=== PATIENT | male | born 1970 | race African-American/Black ===

== ENCOUNTER 2017-06-14 12:19 | Inpatient (IN) | payer OTHER, SELFPAY ==
[2017-06-14] MEDS ORDERED: Lorazepam 2 MG/ML VIAL ONE (12:22)
[2017-06-14] MEDS ORDERED: Succinylcholine Chloride 20 MG/ML 10 ml SYRINGE FS ONE (12:26)
[2017-06-14] MEDS ORDERED: Propofol 1,000 MG/100 ML VIAL IV ONE (12:29)
[2017-06-14 12:41] LABS: #Basophils 0.1 thou/uL (0.0-0.2); #Eosinphils 0.2 thou/uL (0.0-0.7); #Lymphocytes 2.9 thou/uL (1.20-3.40); #Monocytes 0.8 thou/uL (0.11-0.59); %Eosinophils 2.3 % (0.0-10.0); %Lymphocytes 28.9 % (21.0-51.0); %Monocytes 7.5 % (0.0-10.0); %Neutrophils 60.2 % (42.0-75.0); Hemoglobin 15.3 g/dL (14.0-18.0); Mean Corpuscular HGB CONC 33.4 g/dL (32.0-36.0); Mean Corpuscular Hemoglobin 32.7 pg (27.0-31.0); Mean Corpuscular Volume 98.1 fl (80.0-94.0); Mean Platelet Volume 9.1 fL (7.4-10.4); Platelet Count 183 thou/uL (130-400); RBC Distribution Width 13.6 % (11.5-14.5); Red Blood Cell (RBC) Count 4.66 mill/uL (4.70-6.10)
[2017-06-14 12:46] LABS: Bicarbonate (HCO3v) 16.6 mmol/L (1.0-85.0); CO2 Tension (PvCO2) 25.7 mmHg (41.0-51.0); Calcium, Ionized 0.92 mmol/L (1.12-1.32); Lactate 4.85 mmol/L (0.50-2.20); O2 Tension (PvO2) 46.5 mmHg (35.0-45.0); T. Carbon Dioxide 17.4 mmol/L (1.0-85.0); pH (Venous) 7.418 (7.35-7.45)
[2017-06-14 12:52] LABS: Bilirubin Negative (Negative); Blood, Urine Small (Negative); Clarity CLOUDY (Clear); Glucose, Urine (Dipstick) 100 mg/dL (Negative); Leukocyte Negative (Negative); Nitrite Negative (Negative); Protein, Urine (Dipstick) 300 mg/dL (Neg-Trace); Urobilinogen 0.2 mg/dL (0.2-1.0); pH, Urine 7.5 (5.0-9.0)
[2017-06-14 12:53] LABS: Bacteria/HPF Rare-Few HPF (None Seen); Pathc Cast-AUWi Flag 0.72 (0-2.49)
[2017-06-14 12:56] LABS: INR-International Normal Ratio 1.2; PTT 107.2 SEC (22.9-36.1); Prothrombin Time 15.4 SEC (12.0-14.7)
[2017-06-14 12:59] LABS: ALT (SGPT) 11 U/L (8-55); AST (SGOT) 12 U/L (5-34); Albumin 3.1 g/dL (3.5-5.0); Alkaline Phosphatase 110 U/L (40-150); Anion Gap 13 mmol/L (10-20); BUN (Urea Nitrogen) 9 mg/dL (8.9-20.6); Bilirubin, Total 0.3 mg/dL (0.2-1.2); CK (CPK) 128 U/L (30-200); Calc. Creatinine Clearance 0 mL/min (70-130); Calcium 8.2 mg/dL (7.8-10.44); Carbon Dioxide 18 mmol/L (22-29); Chloride 109 mmol/L (98-107); Estimated GFR-MDRD 81; Globulin 2.6 g/dL (2.4-3.5); Glucose 183 mg/dL (70-105); Protein, Total 5.7 g/dL (6.0-8.3); Sodium 137 mmol/L (136-145)
[2017-06-14 13:01] LABS: Yeast-AUWi Flag 34.3 (0-25.0)
--- NOTE | 2017-06-14 13:02 | CON ---
DATE OF CONSULTATION: 06/14/2017 CHIEF COMPLAINT: Chest pain and severe headache. History obtained from his . HISTORY OF PRESENT ILLNESS: Mr. Hassan is an unfortunate 47-year-old gentleman who, per his 's history, has been having severe headaches over the last 3 days. They have been unremitting. She gutierrez s tried to get him to go to the emergency room and he has refused. She then states he had trauma not ed from the ice box x2 on his head yesterday. He then started complaining of chest pain yesterday, w hich was intermittent. He took aspirin and went to bed. He woke with more chest pain. She then sta zhou he collapsed. EMS was then summoned. Patient did have a GCS of 3 at that time. EKG did reveal ST-segment elevation. He continues to be unresponsive and combative. He was seen about in the emerg ency room where he was electively intubated. CT scan of the head is pending. PAST MEDICAL HISTORY: Malignant hypertension. SOCIAL HISTORY: No alcohol use. Positive tobacco use. ALLERGIES: IBUPROFEN. HOME MEDICATIONS: None. REVIEW OF SYSTEMS: Ten-point review of systems is unobtainable. PHYSICAL EXAMINATION: GENERAL: Intubated. VITAL SIGNS: Blood pressure 201/135, pulse 58, respirations 20. NEUROLOGIC: The patient is alert and oriented times 3 with no focal neurologic deficits. HEENT: Sclerae without icterus. Mouth has moist mucous membranes with normal pallor. NECK: No JVD. Carotid upstroke brisk. No bruits bilaterally. LUNGS: Clear to auscultation with unlabored respirations. BACK: No scoliosis or kyphosis. CARDIAC: Regular rate and rhythm with normal S1 and S2. No S3 or S4 noted. No significant rubs, mu rmurs, thrills, or gallops noted throughout the precordium. PMI is not displaced. There is no daryn ternal heave. ABDOMEN: Soft, nontender, nondistended. No peritoneal signs present. No hepatosplenomegaly. No ab normal striae. EXTREMITIES: 2+ femoral and 2+ dorsalis pedis pulses. No cyanosis, clubbing, or edema. SKIN: No gross abnormalities. PERTINENT LABS: Currently pending. EKG: Normal sinus rhythm. ST-segment elevation noted inferiorly. IMPRESSION: 1. Acute myocardial infarction. 2. Severe headache. 3. Mental status changes. RECOMMENDATIONS: I am certainly concerned about a potential intracranial bleed given his history of trauma in addition to a severe headache over the last 3 days. This could certainly explain his menta l status changes in addition to EKG changes. He has been intubated urgently by Dr. Mckeon. CT scan of the head will be performed to assess for a bleed. If this is negative, we would then proceed wit h coronary angiography and possible PCI. I discussed the procedure in full detail with Ms. Hassan. The risks included but are not limited to the following: , stroke, HI, need for emergency stacey tru, loss of limb, bleeding, and infection, as well as a reaction to the dye causing kidney failure and needing long-term dialysis. I also discussed the risks of PCI to include all of the above includ ing coronary dissection and perforation in addition to acute stent thrombosis and restenosis. All qu estions were answered. Given the above, patient agreed to proceed with the above procedure. Further recommendations pending the above.
[2017-06-14 13:03] LABS: CKMB 2.1 ng/mL (0-6.6); Troponin I 0.194 ng/mL (< 0.028)
[2017-06-14 13:05] LABS: Amphetamine Not Detected (NotDetected); Barbiturates Screen Not Detected (NotDetected); Benzodiazepine Screen Not Detected (NotDetected); Cocaine Metabolite Screen Not Detected (NotDetected); Medtox Control Line Valid? VALID (VALID); Medtox Reader # READER 1; Methadone Not Detected (NotDetected); Methamphetamine Not Detected (NotDetected); Opiate Screen Not Detected (NotDetected); Oxycodone Screen Not Detected (NotDetected); Phencyclidine (PCP) Not Detected (NotDetected); THC/Cannabinoid Screen Detected (NotDetected); Tricyclic Screen Not Detected (NotDetected)
[2017-06-14 13:07] LABS: Potassium 2.9 mmol/L (3.5-5.1)
[2017-06-14] MEDS ORDERED: Fentanyl 100 MCG/2 ML VIAL ONE (13:17)
[2017-06-14 13:20] LABS: Hyaline Casts/LPF 0-3 HYALINE CAST LPF (0-3 Hyaline); Other Casts/LPF 0-3 FINELY GRAN LPF (0-3 Hyaline); Yeast-All Forms None Seen HPF (None Seen)
[2017-06-14 13:21] LABS: Crystals/HPF 1+ AMORPH PHOS HPF (Negative)
[2017-06-14] MEDS ORDERED: Morphine 4 MG/ML VIAL SLOW IVP PRN (13:48)
[2017-06-14] MEDS ORDERED: diphenhydrAMINE 50 MG/ML VIAL IVP PRN (13:48)
[2017-06-14] MEDS ORDERED: Promethazine HCl 25 MG/ML VIAL IM PRN (13:48)
[2017-06-14 13:53] LABS: Actual Bicarbonate (HCO3a) 21.3 mEq/L (22-26); Base Excess (BEa) -5.3 mEq/L (0 (+/-) 2.5); CO2 Tension 45.1 mmHg (35.0-45.0); O2 Tension (PaO2) 33.5 mmHg (80.0-100.0); pH, Arterial 7.29 (7.35-7.45)
[2017-06-14 13:54] LABS: Hemoglobin (Hb) 15.2 g/dL (14.0-18.0)
[2017-06-14 13:55] LABS: ALV-art Gradient 623.125 (0-20); Analyzer IN Cardio ER; Calcium, Ionized 1.2 mmol/L (1.12-1.30); Puncture Site LRA
[2017-06-14] MEDS ORDERED: Acetaminophen 1,000 MG in Premix Bag 1 BAG IVPB PRN (13:55)
[2017-06-14] MEDS ORDERED: Furosemide 40 MG/4 ML VIAL ONE (14:10)
[2017-06-14] MEDS ORDERED: SODIUM CHLORIDE IV SCH (14:15)
[2017-06-14] MEDS ORDERED: POTASSIUM ACETATE IV SCH (14:15)
[2017-06-14] MEDS ORDERED: ADMIXTURE FEE IV SCH (14:15)
[2017-06-14] MEDS ORDERED: Protamine Sulfate 50 MG/5 ML VIAL SLOW IVP SCH (14:15)
[2017-06-14] MEDS ORDERED: Aminocaproic Acid 5 GM in Sodium Chloride 0.9% 250 ML 250 ML IV SCH (14:15)
[2017-06-14] MEDS ORDERED: Propofol 1,000 MG/100 ML VIAL IV SCH (14:30)
[2017-06-14] MEDS ORDERED: Succinylcholine Chloride 20 MG/ML 10 ml SYRINGE FS SCH (14:30)
[2017-06-14] MEDS ORDERED: Lorazepam 2 MG/ML VIAL SLOW IVP SCH (14:30)
[2017-06-14] MEDS ORDERED: Fentanyl 100 MCG/2 ML VIAL SLOW IVP SCH (14:30)
--- NOTE | 2017-06-14 14:46 | HP ---
ATTENDING PHYSICIAN: Dr. Teo Galindo HISTORY OF PRESENT ILLNESS: The patient is a 47-year-old male with past medical history of hypertension, noncompliant on his medications, who presented to the ER per EMS after a syncopal episode approximately 45 minutes prior to arrival. Family is at the bedside and history obtained primarily from EMS reports as well as family. Family reports the patient began complaining of headache approximately 3 days ago. Forty-five minutes prior to arrival they report he suffered a syncopal episode which was unwitnessed in the bathroom. EMS was contacted and arrived shortly thereafter at the scene. Initially there was concern for ST elevation [place] with inferior elevations of lead II, III and aVF therefore STEMI protocol was initiated and patient received heparin bolus. GCS was 3 en route per EMS. On arrival, CT head was done, which is notable for diffuse subarachnoid hemorrhage and Neurosurgery Service was consulted for further evaluation. I am seeing the patient at the bedside. He is currently intubated and sedated. His pupils are small, equal, nonreactive. He does not have a gag reflex. He is overbreathing the ventilator. He has no response to stimulation at this time. CTA of the head is pending. PAST MEDICAL HISTORY: Hypertension, noncompliant on medications. PAST SURGICAL HISTORY: Unobtainable. ALLERGIES: Patient allergic to IBUPROFEN. REVIEW OF SYSTEMS: Per HPI. SOCIAL HISTORY: The patient lives at home, he does not smoke, drink or use any drugs. PHYSICAL EXAMINATION: VITAL SIGNS: Heart rate is 42, BP 162/111. The patient is currently intubated and saturating at 90%. CONSTITUTIONAL: Intubated, sedated, distressed. HEENT: Head normocephalic, atraumatic. Eyes; pupils are small, equal, nonreactive. ENT; oral mucosa is pink intact. He is currently intubated. He does not have a gag reflex. RESPIRATORY: He has a symmetric chest expansion. He is being mechanically ventilated, but is noted to be overbreathing the ventilator. MUSCULOSKELETAL: There are no obvious deformities of the extremities. He has no response to the extremities at this time with stimulation. NEURO: Exam is limited by the patient's current condition as well as sedation. He is not opening his eyes. He is not responding to voice. He has no response to stimulation. He is noted to be overbreathing the ventilator. ASSESSMENT AND PLAN: The patient appears to have acute subarachnoid hemorrhage , high grade Taylor and Dietz. He will be admitted to the ICU for supportive care , close monitoring, frequent neuro checks. We have started Cardene for blood pressure control with systolic blood pressure goal of less than 140. I have also started the patient on Nimodipine and Amicar. The patient's heparin is being reversed in the emergency department with protamine infusion. The Medical Service as well as Critical Care has also been consulted for assistance in medical management. CTA is pending and I will follow up. I have discussed this plan with Dr. Galindo who is in agreement. Please reach out to Neurosurgery Service for additional questions or concerns. PETER
[2017-06-14] MEDS ORDERED: ISOVUE-370 76%-LOCM 1 ML ONE (14:58)
[2017-06-14] MEDS: AMINOCAPROIC ACID IV SCH (15:09)
[2017-06-14] MEDS: SODIUM CHLORIDE 0.9% IV SCH (15:09)
[2017-06-14] MEDS: Sodium Chloride 0.9% 1,000 ML IV SCH (15:10)
--- NOTE | 2017-06-14 15:30 | RAD ---
CHEST 1 VIEW: HISTORY: Chest pain. COMPARISON: 02/02/15. FINDINGS: Cardiac silhouette is magnified by projection. Pulmonary vasculature is engorged with widespread ret iculonodular interstitial prominence and air bronchogram containing bilateral upper lobe infiltrates. Mediastinum is midline. Defibrillator patch over the right upper chest. The tip of the endotrache al catheter overlies the thoracic inlet. Nasogastric tube descends to the abdomen with proximal port at the level of the GE junction. IMPRESSION: 1. Pulmonary vascular congestion with developing pulmonary edema. Continued radiographic followup i s suggested. 2. Endotracheal catheter is in good radiographic position. 3. Nasogastric tube should probably be advanced approximately 10 cm for better positioning. POS: [facility]
--- NOTE | 2017-06-14 15:37 | CT ---
CT HEAD NONCONTRAST: 06/14/17 HISTORY: Headache. Syncope. FINDINGS: Large amount of hyperdense fluid is scattered diffusely throughout the effaced sulci. It extends into the Sylvian fissures and basilar cisterns. Hyperdense fluid also extends into the nondilated bodies of the lateral ventricles. Septum pellucidum remains midline. Visualized paranasal sinuses remain wel l aerated. IMPRESSION: Large amount of subarachnoid hemorrhage with intraventricular extension. Diffuse cerebral edema. Source of hemorrhage is not reliably demonstrated. Aneurysm rupture is favored. Findings were called to Dr. Mckeon of the Emergency Department at 1256 hours. Code CR POS: [facility]
[2017-06-14] MEDS ORDERED: Rocuronium Bromide 50 MG/5 ML VIAL IVP PRN (15:49)
[2017-06-14] MEDS ORDERED: Sedation Protocol FS ONE (15:49)
[2017-06-14] MEDS ORDERED: CCU Electrolyte Replacement 1 EACH FS ONE (15:57)
[2017-06-14] MEDS ORDERED: fentaNYL Citrate/PF 2,000 MCG in Sodium Chloride 0.9% 60 ML IV SCH (16:00)
[2017-06-14] MEDS ORDERED: Morphine 2 MG/ML SYRINGE SLOW IVP PRN (16:00)
[2017-06-14] MEDS ORDERED: Lorazepam 2 MG/ML VIAL SLOW IVP PRN (16:00)
[2017-06-14] MEDS ORDERED: DISCONTINUE PREVIOUS NARCOTIC PAIN MEDICATIONS AND BENZODIAZEPINES FS SCH (16:00)
[2017-06-14] MEDS ORDERED: Fentanyl BOLUS 250 ML IVPB PRN (16:00)
[2017-06-14] MEDS ORDERED: Potassium Phosphate 9 MMOL in Sodium Chloride 0.9% 100 ML IVPB PRN (16:02)
[2017-06-14] MEDS ORDERED: Potassium Phosphate 15 MMOL in Sodium Chloride 0.9% 250 ML 250 ML IV PRN (16:02)
[2017-06-14] MEDS ORDERED: Magnesium Oxide 400 MG TAB PO PRN ×2 (16:02)
[2017-06-14] MEDS ORDERED: Potassium Chloride 40 MEQ in Premix Bag 1 BAG IVPB PRN (16:02)
[2017-06-14] MEDS ORDERED: Potassium Phosphate 12 MMOL in Sodium Chloride 0.9% 250 ML 250 ML IV PRN (16:02)
[2017-06-14] MEDS ORDERED: Potassium Chloride 40 MEQ in Sodium Chloride 0.9% 250 ML 250 ML IVPB PRN (16:02)
[2017-06-14] MEDS ORDERED: CCU ELECTROLYTE REPLACEMENT PROTOCOL FS PRN (16:02)
[2017-06-14] MEDS ORDERED: Magnesium 2 GM/NS 0.9% 100 ML 2 GM in Premix Bag 1 BAG IVPB PRN (16:02)
[2017-06-14] MEDS: niMODipine 30 MG CAP PO SCH ×2 (16:47→21:11)
--- NOTE | 2017-06-14 17:14 | CT ---
CT ANGIOGRAM OF HEAD CT ANGIOGRAM OF NECK CT ANGIGRAM OF CHEST: Date: 06/14/17 HISTORY: Headache. Acute [place]. Chest pain. Evaluate for dissection. Evaluate for vascular occlusion. Evaluate fo r aneurysm. COMPARISON: None. TECHNIQUE: CT angiogram of the head, neck, and chest were performed in the axial plane. Sagittal and coronal thr ee-dimensional reformatted images are submitted for interpretation. FINDINGS: POSTCONTRAST HEAD CT: Limited evaluation of the [place] and intracranial structures due to poor timing of bolus. T here is evidence of intraventricular hemorrhage. Suboptimal evaluation for aneurysm at the level of t he [place] due to extensive venous contamination. Grossly, no aneurysm. There does appear to be symmetric enhancement and luminal diameter of the A1 segments. There is decreased enhancement and luminal diameter of the right A1 segment which may be due to vasospasm secondary to adjacent subarac hnoid blood. Possible vascular occlusion cannot be completely excluded. Both intracranial vertebral arteries appear to be unremarkable. Basilar tip is unremarkable. The left and right P1 segments have symmetric enhancement and luminal diameter. The aerodigestive tract is patent. Note is made of endotracheal tube and nasogastric tube. Symmetric attenuation of the sternocleidomastoid muscles. Symmetric attenuation of the parotid and submandibula r glands. Enlarged right Level I lymph node measuring 1.6 cm. Central spinal canal and neural foramina are grossly patent. Evaluation limited by technique. Upper m ediastinum is unremarkable. CHEST CT: Extensive multifocal alveolar infiltrates, predominantly of perihilar distribution. No pneumothorax. CT ANGIOGRAM OF NECK: The aortic arch has appropriate enhancement and luminal diameter. The right carotid artery origin has appropriate enhancement and luminal diameter. The right common ca rotid artery, carotid bifurcation, and internal carotid artery have appropriate enhancement and lumin al diameter. Evaluation limited by beam attenuation artifact from a metallic density at the C3-C4 dis c space level. No significant stenosis based upon NASCET criteria. Origin of the left carotid artery has appropriate enhancement and luminal diameter. Left common carot id artery, carotid bifurcation, and internal carotid artery have overall appropriate enhancement and luminal diameter. No significant stenosis based upon NASCET criteria. Grossly, the cervical vertebral arteries are patent. Subclavian arteries are also grossly patent. CT ANGIOGRAM OF CHEST: Visualized aorta has an overall appropriate enhancement and luminal diameter. Evaluation is limited b y beam attenuation artifact due to the patient having his arms at his side. Grossly, the central pulm onary arteries are unremarkable. Evaluation of the distal central, as well as lobar artery, is subopt imal. IMPRESSION: 1. Suboptimal CT angiogram due to patient position and timing of bolus. No obvious aneurysm in the c ircle of [place]. 2. No obvious stenosis of the carotid arteries. 3. No obvious dissection of the visualized aorta. 4. Extensive ground-glass opacities, predominantly perihilar distribution. Correlate for volume over load, edema. 5. Previously noted subarachnoid hemorrhage is difficult to appreciate. There is evidence of intrave ntricular hemorrhage. 6. Irregularity involving the right M1 segment, which may be due to vasospasm. Component of narrowin g/stenosis cannot be excluded. Results of study discussed with Cee Mckeon on 06/14/17 at 1351 hours. CODE CR. POS: [facility]
--- NOTE | 2017-06-14 17:22 | OP ---
PROCEDURE: Fiberoptic bronchoscopy and upper laryngoscopy. PREOPERATIVE DIAGNOSIS: The patient has a tooth knocked out during endotracheal intubation and it co uld not be found. DESCRIPTION OF PROCEDURE: The patient had been previously paralyzed and was on sedation on mechanica l ventilation during the procedure. The scope was placed in the endotracheal tube. Notable findings in the trachea included frothy sputum. I surveyed each of the segments in the left lung and right l khoi and there was no evidence of foreign body. The scope was withdrawn. I used a GlideScope to look in the oropharynx. There was the root of a tooth demonstrated between the endotracheal tube and the NG tube just above the vocal cords. Using Waddell forceps I extracted the tooth, which essentially had a necrotic stump and a gold tip. This was put in a specimen jar and will be returned to the family. He tolerated the procedure well.
[2017-06-14 17:35] LABS: Lactic Acid 8.2 mmol/L (0.5-2.2)
--- NOTE | 2017-06-14 18:08 | CON ---
DATE OF CONSULTATION: 06/14/2017 CONSULTING PHYSICIAN: Dr. Galindo REASON FOR CONSULTATION: Acute respiratory failure related to subarachnoid hemorrhage. HISTORY OF PRESENT ILLNESS: This is a 47-year-old male, who presented to the hospital. His states that he began having a headache approximately 3 days ago. He apparently was suffered some type of seizure episode at the scene. He was intubated. It was initially felt he had ST segment myocardial infarction and he was given a heparin bolus. His [place] coma scale was 3. He underwent CT of the head, which showed diffuse subarachnoid hemorrhage. His heparin was reversed by the ER staff. I was called to see him because a gold tooth became dislodged while he was being intubated and there was concern that may be stuck in his airway. He had been intubated prior to my arrival. The CT is showing that the tooth is actually somewhere in the neck region. I did look with the bronchoscope and did not see the tooth inside any of the airways. PAST MEDICAL HISTORY: Hypertension. The denies any previous history of heart disease. PAST SURGICAL HISTORY: None. ALLERGIES: IBUPROFEN. MEDICATIONS PRIOR TO ADMISSION: He is supposed to be taking antihypertensive medication, but has been out medicine and has not seen his doctor in quite some time. SOCIAL HISTORY: He lives at home. He smokes cigarettes. He smokes marijuana, does not drink any alcohol, and does not use illicit drugs. REVIEW OF SYSTEMS: Cannot be obtained as he is on mechanical ventilation. PHYSICAL EXAMINATION: VITAL SIGNS: Heart rate ranged between 80-120, blood pressure between 120/70 and 210/110, respiratory rate 24. GENERAL: The patient is currently comatose and will not respond to pain. He does clench his teeth when I try to open his mouth. HEENT: Pupils sluggishly reactive. Sclerae are anicteric. Oropharynx is clear. NECK: No JVD. LUNGS: A few rhonchi noted bilaterally. CARDIOVASCULAR: S1, S2 regular. ABDOMEN: Soft, nontender. EXTREMITIES: No edema. LABORATORY AND X-RAY FINDINGS: White blood cell count 10, hematocrit 45.7, platelet count 183. PTT was 107.2, pH of 7.29, pCO2 of 45, pO2 of 33. Sodium 142, potassium 3, chloride 111, CO2 of 18, BUN 9, creatinine 1.1, glucose 183. Lactate is 4.85. Troponin is 0.194. Chest x-ray showed vascular congestion. ET tube is in proper position. Echocardiogram is pending. ASSESSMENT: 1. Subarachnoid hemorrhage. 2. Acute respiratory failure related to pulmonary edema. 3. Hypertensive emergency. 4. Marijuana abuse. PLAN: 1. The patient will undergo fiberoptic bronchoscopy -- see separate operative report. Adjust the ventilator settings. 1. Diurese. 2. Check echocardiogram. 3. Discussed with . Critical care time is 45 minutes. MTDD
[2017-06-14 19:10] LABS: Troponin I 10.761 ng/mL (< 0.028)
--- NOTE | 2017-06-14 19:30 | CON ---
DATE OF CONSULTATION: 06/14/2017 PRIMARY CARE PHYSICIAN: None. REQUESTING PHYSICIAN: Dr. Galindo. REASON FOR CONSULTATION: Medical management. REASON FOR ADMISSION: Subarachnoid hemorrhage. HISTORY OF PRESENT ILLNESS: Mr. Hassan is a 47-year-old Afro-[place]er male with past medical histo ry of hypertension, who is rather noncompliant with his medication, presented to the ER via EMS after a syncopal episode happening about 45 minutes prior to his arrival. History is mainly obtained by t he record review. His immediate family who was there at the time of syncope is not in the room. Car alex was discussed with his nephew and his uncle at bedside. According to the EMR, the patient passed out at the bathroom floor and unwitnessed. The noticed him on the floor and EMS was called shortly thereafter. En route, his GCS was 3 for EMS. Upon arrival in the emergency room, there was concern for ST elevation PA with inferior elevation in lead II, III and aVF, so STEMI protocol was initiated and Cardiology was consulted and the patient re ceived heparin bolus. A CT scan done at the arrival or afterward showed diffuse subarachnoid hemorrh age and Neurosurgery was also consulted. The patient was intubated to protect his airways. Neurosur tru has admitted the patient to critical care unit and Cardiology has also evaluated the patient. T he heparin infusion has been stopped and he has received aminocaproic acid to reverse the heparin coa gulopathy. He has been evaluated by Dr. Amaro from Cardiology and it seems like this is not an acute PA, but rather the EKG changes are secondary to his significant subarachnoid bleed. He has also been evalua [place] by Pulmonary Critical Care Medicine, Dr. Caballero. A bedside bronchoscopy was done in the ICU as he was missing a tooth since the time of his intubation in the ER. The patient has been started on n imodipine for blood pressure control as well as p.r.n. nicardipine drip. Internal Medicine team has been consulted for medical management. PAST MEDICAL HISTORY: Hypertension. PAST SURGICAL HISTORY: None according to the most immediate family present at bedside. ALLERGIES: Listed as IBUPROFEN. REVIEW OF SYSTEMS: Unobtainable as the patient is currently intubated and sedated. SOCIAL HISTORY: There is history of marijuana abuse and tobacco abuse. No history of drug abuse per the family. He is . FAMILY HISTORY: Unobtainable as the patient's immediate family is not here and he is intubated and s edated. LABORATORY DATA: His CBC is unremarkable. Hemoglobin 15.3, PTT is 107.2. Serum chemistry showed po tassium of 3, sodium 142. His lactic acid is significantly elevated with lactic acid of 8.2. His CK -MB is normal as well as creatine kinase. His troponin is elevated to 0.194. Renal function within normal limit. Urinalysis shows epithelial cells as well as few wbc's. His drug screen is positive f or marijuana. CT angio of the thorax was done in the emergency room along with head and neck. It di d not show any obvious aneurysm in the [place]. There is no obvious dissection of the aorta . No obvious stenosis of the carotid arteries. Ground glass opacities noticed in the lungs consiste nt with pulmonary edema. There is also concern for irregularity involving the right M1 segment which may be due to vasospasm. X-ray by my review is also consistent with pulmonary vascular congestion d eveloping pulmonary edema. Initial CT scan of the brain done in by the emergency room shows large am ount of subarachnoid hemorrhage with intraventricular extension. A 12-lead EKG by my review shows normal sinus rhythm and prolonged QT interval. PHYSICAL EXAMINATION: VITAL SIGNS: Upon presentation, blood pressure 162/111, respirations 32, pulse of 92, temperature 95 .9 and oxygen saturation 67% on ventilator. GENERAL: He is intubated and sedated and is in no acute distress at this time. HEENT: Endotracheal tube is in place. Mucous membrane appears moist. Pupils equal, reactive to lig ht. NECK: Free of any JVD, bruit, or masses. CHEST: Chest evaluation showed coarse breath sounds both sides with diffuse rales. CARDIOVASCULAR: Rate and rhythm is regular without any murmurs, rubs, or gallops. ABDOMEN: Soft, nondistended with distant bowel sounds. EXTREMITIES: Free of any cyanosis, clubbing, or edema. NEUROLOGIC: Limited because of sedation. SKIN: Free of any rashes or bruises. I feel warm and dry to touch. IMPRESSION AND PLAN: 1. Subarachnoid hemorrhage. No obvious aneurysms noticed in the initial CT scan or CT angio. The p atshady is being admitted to the Critical Care Unit under Neurosurgery service. Blood pressure manage ment as above with nicardipine drip p.r.n. as well as oral nimodipine. Target systolic blood pressur e less than 140. Avoid quick and significant lowering of the blood pressure. His heparin has been r eversed with protamine in the emergency room as well as use of aminocaproic acid. Internal Medicine team will follow along. 2. Question of ST elevation myocardial infarction. Cardiology has evaluated the patient and most li mushtaq this is secondary to his neurological sequelae. Hold any further anticoagulation at this time. We will check serial cardiac enzymes and repeat the EKG. Echocardiogram has been ordered as well. 4. Acute hypoxic respiratory failure. This is secondary to neurological insult most likely. Please note that the patient was found to have a gag reflex for the Neurosurgery upon presentation. Intuba tion has been done and ventilator management will proceed as per Dr. Caballero from Critical Care. 5. Lactic acidosis, most likely secondary to tissue hypoxia. No indication for antibiotics at this time. Chest CT does not show any significant infiltrate, though he is at high risk of aspiration pne umonitis. 6. Pulmonary edema. Patient will be diuresed. 7. History of hypertension. Medications as above. 8. Marijuana abuse. 9. CODE STATUS: FULL CODE. DISPOSITION: Internal Medicine team will follow along. Thank you for letting us to participate in the care of this patient.
[2017-06-14] MEDS ORDERED: Famotidine/PF 20 mg/2ml Vial SLOW IVP SCH (21:00)
[2017-06-14] MEDS: Propofol 1,000 MG/100 ML VIAL IV PRN (22:05)
[2017-06-14 22:36] LABS: Potassium 3.9 mmol/L (3.5-5.1)
[2017-06-14 23:18] LABS: Troponin I 16.296 ng/mL (< 0.028)
[2017-06-15] MEDS: niMODipine 30 MG CAP PO SCH ×6 (01:19→21:05)
[2017-06-15] MEDS: AMINOCAPROIC ACID IV SCH ×3 (01:50→23:11)
[2017-06-15] MEDS: SODIUM CHLORIDE 0.9% IV SCH ×3 (01:50→23:11)
[2017-06-15] MEDS: Propofol 1,000 MG/100 ML VIAL IV PRN ×5 (02:15→23:11)
[2017-06-15] MEDS: Sodium Chloride 0.9% 1,000 ML IV SCH ×2 (02:15→11:11)
[2017-06-15 05:23] LABS: #Lymphocytes 0.8 thou/uL (1.20-3.40); #Monocytes 0.5 thou/uL (0.11-0.59); #Neutrophils 10.7 thou/uL (1.40-6.50); %Eosinophils 0.1 % (0.0-10.0); %Lymphocytes 6.9 % (21.0-51.0); %Monocytes 4.5 % (0.0-10.0); %Neutrophils 88.5 % (42.0-75.0); Hemoglobin 17.1 g/dL (14.0-18.0); Mean Corpuscular HGB CONC 33.2 g/dL (32.0-36.0); Mean Corpuscular Volume 99.4 fl (80.0-94.0); Mean Platelet Volume 10.2 fL (7.4-10.4); Platelet Count 163 thou/uL (130-400); RBC Distribution Width 14.1 % (11.5-14.5); Red Blood Cell (RBC) Count 5.16 mill/uL (4.70-6.10); White Blood Cell (WBC) Count 12.1 thou/uL (4.8-10.8)
[2017-06-15 05:42] LABS: ALT (SGPT) 14 U/L (8-55); AST (SGOT) 56 U/L (5-34); Albumin 3.2 g/dL (3.5-5.0); Alkaline Phosphatase 98 U/L (40-150); Anion Gap 14 mmol/L (10-20); BUN (Urea Nitrogen) 11 mg/dL (8.9-20.6); Bilirubin, Total 0.6 mg/dL (0.2-1.2); Calc. Creatinine Clearance 122 mL/min (70-130); Calcium 8.3 mg/dL (7.8-10.44); Carbon Dioxide 16 mmol/L (22-29); Chloride 111 mmol/L (98-107); Estimated GFR-MDRD 86; Globulin 2.8 g/dL (2.4-3.5); Glucose 122 mg/dL (70-105); Potassium 4.2 mmol/L (3.5-5.1); Sodium 137 mmol/L (136-145)
[2017-06-15 07:15] LABS: Actual Bicarbonate (HCO3a) 16.8 mEq/L (22-26); Base Excess (BEa) -5.2 mEq/L (0 (+/-) 2.5); CO2 Tension 25.5 mmHg (35.0-45.0); Hematocrit-ABG 51.7 % (42.0-52.0); Hemoglobin (Hb) 16.3 g/dL (14.0-18.0); O2 Tension (PaO2) 143.8 mmHg (80.0-100.0); pH, Arterial 7.44 (7.35-7.45)
[2017-06-15 07:16] LABS: ALV-art Gradient 532.325 (0-20); Calcium, Ionized 1.1 mmol/L (1.12-1.30); Puncture Site RB
[2017-06-15] MEDS ORDERED: Furosemide 40 MG/4 ML VIAL IVP SCH (08:00)
--- NOTE | 2017-06-15 08:25 | PRG ---
DATE OF SERVICE: 06/15/2017 This is 45 minutes critical care time. SUBJECTIVE: The patient remains intubated in the CCU. Neurologically, his exam is remarkable for wi thdrawal from pain in all 4 extremities. His pupils are about 2 mm and unreactive. He has no gag. He does have some spontaneous respirations. OBJECTIVE: VITAL SIGNS: Temperature is 99.0, pulse 95, blood pressure 111/77. He is requiring no vasopressor. A 24 hour intake is 3133, output 2230. Weight 234 pounds. HEENT: Otherwise, unremarkable. NECK: No JVD. LUNGS: Coarse rhonchi. CARDIOVASCULAR: S1, S2 regular. ABDOMEN: Soft. No hepatomegaly. EXTREMITIES: No clubbing, cyanosis, or edema. LABORATORY DATA: White blood cell count 12.1, hemoglobin 17, hematocrit 51, platelet count 163. PH 7.44, PCO2 of 25, PO2 of 143 on bilevel ventilation, rate 24, high pressure 30, low pressure 12, FiO2 100%. Sodium 137, potassium 4.2, chloride 111, CO2 of 16, BUN 11, creatinine 1.1, glucose 122. Tro ponin is 16.2. X-RAY FINDINGS: His chest x-ray shows bilateral infiltrates, more concentrated on the left than the right. ASSESSMENT: 1. Subarachnoid hemorrhage. 2. Pulmonary edema versus pneumonia. Pulmonary edema is not a typical in the setting of subarachnoi d hemorrhage. He could also have pneumonitis from aspiration when he became unresponsive. 3. Severe hypertension, which appears to be under control currently. 4. Likely some type of cardiomyopathy. 5. Non-anion gap metabolic acidosis. 6. Myocardial infarction. PLAN: 1. We will ask Cardiology to add further input and await echocardiogram today. 2. Awaiting further input from Neurosurgery. In the meantime, continue with supportive care. 3. Diurese. 4. Empirically add IV antibiotics, specifically for aspiration coverage. 5. Start enteral tube feedings. 6. Discussed with family when they arrive.
--- NOTE | 2017-06-15 10:02 | RAD ---
PORTABLE AP CHEST XRAY: DATE: 06/15/17. HISTORY: On ventilator. Followup evaluation. COMPARISON: 06/14/17. FINDINGS: There has been interval increase in bilateral interstitial and alveolar opacities greater in the justin hilar regions, but more diffusely present on the left on today's exam. Endotracheal tube and nasogas tric tube are stable in position. The cardiac silhouette is magnified by projection. IMPRESSION: 1. Increase in bilateral perihilar interstitial and alveolar opacities. More confluent opacity is n ow seen involving a large portion of the left hemithorax. These findings may be related to worsening asymmetric pulmonary edema or worsening infectious process. 2. Endotracheal tube and nasogastric tube remain in place. POS: [facility]
--- NOTE | 2017-06-15 10:05 | CT ---
PRELIMINARY REPORT/[facility]/EMERGENTY AFTER-HOURS PROCEDURE EXAM: CT Head Without Intravenous Contrast CLINICAL HISTORY: 47 years old, male; Abnormal findings; Abnormal radiologic findings of head/skull; Not specified; Pat ient HX: This is a follow up CT for sah. A previous report and prior images have been sent to [facility]. TECHNIQUE: Axial computed tomography images of the head/brain without intravenous contrast. COMPARISON: CT Brain WO Con 2017-06-14 12:53 FINDINGS: As before, there is presence of a moderate amount of diffuse subarachnoid blood. Some blood is again seen in the ventricular system, probably not increased in overall amount. More blood is now seen bashir ecting in the dependent/occipital horns of the lateral ventricles. No definite new hemorrhage in the interval. As before, there appears to be some diffuse cerebral edema. No significant focal mass effec t or midline shift. Ventricle size is similar to prior exam, possibly slightly increased size of the temporal horns of th e lateral ventricles. Continued followup recommended to exclude developing hydrocephalus. No definite acute infarct by CT. IMPRESSION: Continued diffuse subarachnoid blood, with some intraventricular blood. See above details. No definite new hemorrhage in the interval. Other findings discussed above. Thank you for allowing us to participate in the care of your patient. Dictated and Authenticated by: Nick Hough MD 06/15/2017 4:47 AM Central Time ([place] & [place]) FINAL REPORT EMERGENCY AFTER HOURS NONCONTRAST CT HEAD: Date: 06/15/17 HISTORY: Follow-up subarachnoid hemorrhage. Repeat evaluation. COMPARISON: 06/14/17. IMPRESSION: 1. Again noted is subarachnoid hemorrhage within the cerebral hemispheres bilaterally, as well as in volving the basilar cisterns, with intraventricular extension of hemorrhage. There is a slightly grea ter amount of hemorrhage layering dependently within the occipital horns of lateral ventricles on tod ay's exam. There is also hemorrhage in the region of the fourth ventricle on the current study. Ventr icles appear slightly more dilated than on the prior study, which may be related to developing obstru ctive hydrocephalus. 2. Increased density along the tentorium, similar to the prior exam. This is not thought to be relat ed to subdural hemorrhage given symmetric appearance of this finding. This is probably related to dur a in this region. 3. Endotracheal tube noted in place on the playroom attendant image. There is fluid in the posterior nasopharynx, likely related to the intubation. Findings are in agreement with the preliminary report by [facility]. POS: [facility]
[2017-06-15] MEDS: Piperacillin/Tazobactam 3.375 GM in Sodium Chloride 0.9% 100 ML IVPB SCH ×3 (10:21→21:05)
[2017-06-15] MEDS: Pantoprazole 40 MG VIAL IVP SCH (10:25)
--- NOTE | 2017-06-15 15:30 | PDOC.PN ---
- Subjective Encounter Start Date: 06/15/17 Encounter Start Time: 15:28 Subjective: remains intubated.sedated.no changes. -: withdraws to pain - Objective MAR Reviewed: Yes Vital Signs & Weight: Vital Signs (12 hours) Temp Pulse Pulse Pulse Resp BP BP 06/15/17 14:35 94 115/85 06/15/17 14:00 20 06/15/17 13:01 98 110/83 06/15/17 12:00 99.1 F 20 06/15/17 10:23 80 130/90 06/15/17 10:21 87 130/90 06/15/17 10:00 20 06/15/17 09:24 83 81 130/90 06/15/17 08:32 82 117/87 06/15/17 08:00 98.5 F 24 H 06/15/17 07:53 91 99/80 06/15/17 06:00 24 H 06/15/17 04:24 81 106/70 06/15/17 04:00 99.0 F 24 H Pulse Ox Pulse Ox 06/15/17 14:35 06/15/17 14:00 06/15/17 13:01 06/15/17 12:00 06/15/17 10:23 97 06/15/17 10:21 06/15/17 10:00 06/15/17 09:24 96 97 06/15/17 08:32 06/15/17 08:00 06/15/17 07:53 06/15/17 06:00 06/15/17 04:24 06/15/17 04:00 Weight Weight 234 lb 2.095 oz Most Recent Monitor Data Heart Rate from ECG 93 NIBP 115/85 NIBP BP-Mean 92 Respiration from ECG 10 SpO2 96 I&O: 06/14/17 06/15/17 06/16/17 06:59 06:59 06:59 Intake Total 3133 50 Output Total 2230 1750 Balance 903 -1700 Result Diagrams: 06/15/17 04:18 06/15/17 04:18 Additional Labs: Laboratory Tests 06/14/17 06/14/17 06/14/17 12:31 18:21 21:52 Troponin I 0.194 H 10.761 H* 16.296 H* Phys Exam - Physical Examination Constitutional: NAD intubated HEENT: moist MMs ETT Neck: no JVD reduced left base,coarse b/l Cardiovascular: RRR, no significant murmur Gastrointestinal: soft distended Musculoskeletal: no edema, pulses present Dx/Plan (1) SAH (subarachnoid hemorrhage) Code(s): I60.9 - NONTRAUMATIC SUBARACHNOID HEMORRHAGE, UNSPECIFIED Status: Acute (2) NSTEMI (non-ST elevated myocardial infarction) Code(s): I21.4 - NON-ST ELEVATION (NSTEMI) MYOCARDIAL INFARCTION Status: Acute (3) Acute hypoxemic respiratory failure Code(s): J96.01 - ACUTE RESPIRATORY FAILURE WITH HYPOXIA Status: Acute (4) Aspiration pneumonia Code(s): J69.0 - PNEUMONITIS DUE TO INHALATION OF FOOD AND VOMIT Status: Acute (5) Metabolic acidosis Code(s): E87.2 - ACIDOSIS Status: Acute (6) Lactic acid acidosis Code(s): E87.2 - ACIDOSIS Status: Acute (7) HTN (hypertension) Code(s): I10 - ESSENTIAL (PRIMARY) HYPERTENSION Status: Chronic - Plan vásquez catheter, continue antibiotics, DVT proph w/SCDs Cont Nimodipine for BP control.much better today>can DC Nicardipine drip. -: cont ventilatory support per PCCM -: Elevated LA d/t tissue hypoxia.Q Aspiration PNA -: CXR shows significant PNA Vs Edema.Lasix,Zosyn given -: CTA per NS soon * .Troponin elevated.? AK .Cardiology follwoing * Not a acndidate for any anticoagulant or anti-platelet due to SAH * Monitor for S/S of Vasospasm.Difficult to assess due to sedation * am labs. * ECHO ordered.Unknown cardiac history. Review of Systems - Review of Systems Other: unobtainable due to intubation,sedation - Medications/Allergies Allergies/Adverse Reactions: Allergies Allergy/AdvReac Type Severity Reaction Status Date / Time ibuprofen Allergy Unverified 06/14/17 17:29 Medications: Current Medications Albuterol/Ipratropium (Duoneb) 3 ml NEB [id number] [place] Last Admin: 06/15/17 13:01 Dose: 3 ml Diphenhydramine HCl (Benadryl) 50 mg IVP Q6H PRN PRN Reason: Itching Aminocaproic Acid 10 gm/ (Sodium Chloride) 540 mls @ 54 mls/hr IV INF [place] Last Admin: 06/15/17 13:30 Dose: 540 mls Nicardipine HCl 25 mg/ Sodium (Chloride) 260 mls @ 0 mls/hr IVPB INF [place]; Titrate PRN Reason: Protocol Sodium Chloride (Normal Saline 0.9%) 1,000 mls @ 80 mls/hr IV .[id number] [facility] Last Admin: 06/15/17 11:11 Dose: 1,000 mls Fentanyl Citrate 2,000 mcg/ (Sodium Chloride) 100 mls @ 0 mls/hr IV INF [place]; Per Protocol PRN Reason: Protocol Stop: 07/14/17 16:00 Fentanyl Citrate (Fentanyl Bolus) 250 mls @ 0 mls/hr IVPB PRN PRN; As Directed PRN Reason: Breakthrough pain Stop: 07/14/17 16:00 Potassium Chloride 40 meq/ (Sodium Chloride) 270 mls @ 135 mls/hr IVPB ASDIR PRN PRN Reason: FOR SERUM K+ 2.5 - 3.5 Potassium Chloride 40 meq/ (Device) 100 mls @ 50 mls/hr IVPB ASDIR PRN PRN Reason: FOR SERUM K+ 2.5 - 3.5 Magnesium Sulfate 1 gm/ Sodium (Chloride) 102 mls @ 102 mls/hr IV PRN PRN PRN Reason: MAG LEVEL 1.4 - 2.0 Magnesium Sulfate 2 gm/ Device 100 mls @ 100 mls/hr IVPB ASDIR PRN PRN Reason: MAGNESIUM < 1.4 Potassium Phosphate 9 mmol/ (Sodium Chloride) 103 mls @ 25.75 mls/hr IVPB ASDIR PRN PRN Reason: Phosphate 1.0-1.8 Potassium Phosphate 12 mmol/ (Sodium Chloride) 254 mls @ 63.5 mls/hr IV ASDIR PRN PRN Reason: Serum phosphate 0.5-0.9 Potassium Phosphate 15 mmol/ (Sodium Chloride) 255 mls @ 63.75 mls/hr IV ASDIR PRN PRN Reason: Serum Phos < 0.5 Piperacillin Sod/Tazobactam (Sod 3.375 gm/ Sodium Chloride) 100 mls @ 200 mls/ hr IVPB 0300,0900,1500,2100 [facility] Last Admin: 06/15/17 10:21 Dose: 100 mls Lorazepam (Ativan) 2 mg SLOW IVP Q2H PRN PRN Reason: Anxiety to achieve Quesada 2-3 Stop: 07/14/17 16:00 Magnesium Oxide (Magnesium Oxide) 400 mg PO BIDPRN PRN PRN Reason: FOR SERUM MAG 1.4 - 2.0 Magnesium Oxide (Magnesium Oxide) 800 mg PO PRN PRN PRN Reason: FOR SERUM MAG < 1.4 Miscellaneous Medication (Phos-Nak) 1 pkt PO TIDPRN PRN PRN Reason: FOR PHOS LEVEL 1.0 - 1.8 Miscellaneous Medication (Phos-Nak) 2 pkt PO TIDPRN PRN PRN Reason: FOR PHOS LEVEL 0.5 - 1.0 Morphine Sulfate (Morphine) 2 mg SLOW IVP Q2H PRN PRN Reason: Breakthrough pain Stop: 07/14/17 16:00 Nimodipine (Nimodipine) 60 mg PO Q4HR [facility] Last Admin: 06/15/17 13:29 Dose: Not Given Discontinue Previous Narcotic Pain Medications And Benzodiazepines 1 each FS .ONE [facility] Stop: 07/14/17 16:00 Ccu Electrolyte (Replacement Protocol) 0 each FS PRN PRN PRN Reason: FOR ELECTROLYTE REPLACEMENT Pantoprazole Sodium (Protonix) 40 mg IVP DAILY [facility] Last Admin: 06/15/17 10:25 Dose: 40 mg Potassium Chloride (K-Dur) 40 meq PO ASDIR PRN PRN Reason: FOR SERUM K+ 2.5 - 3.5 Potassium Chloride (Klor-Con) 40 meq PER TUBE ASDIR PRN PRN Reason: FOR SERUM K+ 2.5-3.5 Promethazine HCl (Phenergan) 25 mg IM Q4H PRN PRN Reason: Nausea/Vomiting Propofol (Diprivan) 1,000 mg IV INF PRN; Protocol PRN Reason: TO ACHIEVE QUESADA SCORE 2-3 Stop: 07/14/17 16:00 Last Admin: 06/15/17 11:11 Dose: 1,000 mg Rocuronium [place] (Zemuron) 50 mg IVP Q30MIN PRN PRN Reason: Agitation Sodium Chloride (Flush - Normal Saline) 10 ml IVF Q12HR [facility] Last Admin: 06/15/17 10:24 Dose: 10 ml Sodium Chloride (Flush - Normal Saline) 10 ml IVF PRN PRN PRN Reason: Saline Flush Sodium Chloride (Flush - Normal Saline) 10 ml IV DAILY [place] Last Admin: 06/15/17 10:25 Dose: 10 ml
--- NOTE | 2017-06-15 17:49 | PRG ---
DATE OF SERVICE: 06/15/2017 SUBJECTIVE: Mr. Hassan's status is unchanged. He does withdraw to painful stimuli, but does not o pen eyes spontaneously. He does not follow commands. OBJECTIVE: VITAL SIGNS: Blood pressure 115/85, pulse 94, temperature afebrile. NEUROLOGIC: As above. He is currently intubated. LUNGS: Clear to auscultation. CARDIAC: Regular rate and rhythm. ABDOMEN: Soft, nontender, nondistended. EXTREMITIES: No edema. PERTINENT LABORATORY DATA: Hemoglobin 17. Peak troponin 16. CK-MB not drawn. Echo Doppler shows LVEF 50%-55% with diastolic dysfunction, [id number] LVH present. IMPRESSION: 1. Subarachnoid bleed. 2. Respiratory arrest. 3. Elevated troponin. RECOMMENDATIONS: Mr. Hassan's elevated troponin is unlikely due to a ruptured plaque. Based on hi s history and having 3 days of unremitting headache per his , his initial event likely was the escobar barachnoid bleed. His blood pressure, while in the emergency room, was 235/115 and may have caused demand ischemia. I cannot completely rule out initial cardiac event that is the inciting event, but given his history it is less likely. From a CV standpoint, we would continue current support. There is no plan to proceed with angiograph y given the need for anticoagulation therapy. I did speak with Dr. Abner Caballero about the case. I also restart[facility], who confirmed that heparin was given in the field, but not in the emergency room.
[2017-06-16] MEDS: niMODipine 30 MG CAP PO SCH ×6 (00:15→20:43)
[2017-06-16] MEDS: Piperacillin/Tazobactam 3.375 GM in Sodium Chloride 0.9% 100 ML IVPB SCH ×4 (03:10→20:43)
[2017-06-16] MEDS: Sodium Chloride 0.9% 1,000 ML IV SCH ×2 (03:11→15:47)
[2017-06-16] MEDS: Propofol 1,000 MG/100 ML VIAL IV PRN ×6 (03:31→22:08)
[2017-06-16 04:46] LABS: #Lymphocytes 1.1 thou/uL (1.20-3.40); #Monocytes 0.7 thou/uL (0.11-0.59); #Neutrophils 9.5 thou/uL (1.40-6.50); %Basophils 0.1 % (0.0-1.0); %Eosinophils 0.2 % (0.0-10.0); %Lymphocytes 9.9 % (21.0-51.0); %Monocytes 5.9 % (0.0-10.0); %Neutrophils 83.9 % (42.0-75.0); Hemoglobin 14.1 g/dL (14.0-18.0); Mean Corpuscular HGB CONC 33.8 g/dL (32.0-36.0); Mean Corpuscular Hemoglobin 32.3 pg (27.0-31.0); Mean Corpuscular Volume 95.7 fl (80.0-94.0); Mean Platelet Volume 10.2 fL (7.4-10.4); Platelet Count 134 thou/uL (130-400); RBC Distribution Width 13.8 % (11.5-14.5); Red Blood Cell (RBC) Count 4.38 mill/uL (4.70-6.10); White Blood Cell (WBC) Count 11.3 thou/uL (4.8-10.8)
[2017-06-16 04:55] LABS: ALT (SGPT) 13 U/L (8-55); AST (SGOT) 36 U/L (5-34); Albumin 3.1 g/dL (3.5-5.0); Alkaline Phosphatase 88 U/L (40-150); Anion Gap 12 mmol/L (10-20); BUN (Urea Nitrogen) 16 mg/dL (8.9-20.6); Bilirubin, Total 0.8 mg/dL (0.2-1.2); Calc. Creatinine Clearance 107 mL/min (70-130); Calcium 8.7 mg/dL (7.8-10.44); Carbon Dioxide 20 mmol/L (22-29); Chloride 111 mmol/L (98-107); Estimated GFR-MDRD 75; Globulin 2.8 g/dL (2.4-3.5); Glucose 132 mg/dL (70-105); Potassium 3.1 mmol/L (3.5-5.1); Protein, Total 5.9 g/dL (6.0-8.3); Sodium 140 mmol/L (136-145)
[2017-06-16 07:06] LABS: pH, Arterial 7.48 (7.35-7.45)
[2017-06-16 07:07] LABS: Actual Bicarbonate (HCO3a) 19.9 mEq/L (22-26); Base Excess (BEa) -2.3 mEq/L (0 (+/-) 2.5); CO2 Tension 27.3 mmHg (35.0-45.0); Calcium, Ionized 1.2 mmol/L (1.12-1.30); Hematocrit-ABG 39.8 % (42.0-52.0); Hemoglobin (Hb) 13.5 g/dL (14.0-18.0); O2 Tension (PaO2) 118.9 mmHg (80.0-100.0); Puncture Site LRA
[2017-06-16 07:08] LABS: ALV-art Gradient 132.175 (0-20)
[2017-06-16] MEDS: Pantoprazole 40 MG VIAL IVP SCH (08:48)
--- NOTE | 2017-06-16 08:54 | PRG ---
DATE OF SERVICE: 06/16/2017 This is a 35 minutes critical care time. SUBJECTIVE: Mr. Hassan remains intubated on mechanical ventilation. This morning, we held his sed ation. He moves both arms and spontaneously moves his head and did get him to move his feet, but not his upper legs. He will not follow any commands specifically. PHYSICAL EXAMINATION: VITAL SIGNS: His blood pressure is 125/69, heart rate 103, O2 sat 97%, respiratory rate 17, temperat ure 98.7. Total intake for the last 24 hours has been 3903, output 2860. Weight 230 pounds. HEENT: Pupils are 3 mm, sluggishly reactive. Sclerae anicteric. Oropharynx clear. NECK: Without adenopathy or JVD. LUNGS: Clear anteriorly. CARDIOVASCULAR: S1, S2, slightly tachycardic. ABDOMEN: Soft and nontender. EXTREMITIES: Without clubbing, cyanosis, or edema. LABORATORY DATA: Sodium 140, potassium 3.1, chloride 111, CO2 20, BUN 16, creatinine 1.2, glucose 13 2. White blood cell count 11.3, hemoglobin 14, hematocrit 42, platelet count 134. ABG: pH 7.48, pC O2 27, pO2 118 on bilevel rate 20, FiO2 40%, high PEEP 27, low PEEP 10. X-RAY FINDINGS: Chest x-ray demonstrates improved left lung infiltrate compared to yesterday. ASSESSMENT: 1. Acute respiratory failure requiring mechanical ventilation - respiratory failure secondary to the subarachnoid hemorrhage. 2. Myocardial infarction. 3. Hypertension. 4. Pulmonary edema versus pneumonia. PLAN: 1. Continuing antibiotics for aspiration coverage. 2. Switch over to SIMV ventilation. 3. He is scheduled for angiogram later today. 4. Mental status seems to be improving and if this continues, we may be able to think about extubati ng this weekend. Dr. Ansari will be covering this weekend.
--- NOTE | 2017-06-16 09:11 | CT ---
PRELIMINARY REPORT/[facility]/EMERGENTY AFTER-HOURS PROCEDURE CT Angiography Head Without and With Intravenous Contrast CLINICAL HISTORY: 47 years old, male; known SAH; F/u subarachnoid hemorrhage TECHNIQUE: Axial computed tomographic angiography images of the head without and with intravenous contrast using CT angiography protocol. COMPARISON: CT Brain WO Con 2017-06-15 03:33 FINDINGS: VASCULATURE: Right internal carotid artery: No acute findings. Intracranial segment is patent with no significant stenosis. No aneurysm. Right anterior cerebral artery: Unremarkable. No occlusion or significant sten osis. No aneurysm. Right middle cerebral artery: Unremarkable. No occlusion or significant stenosis. No aneurysm. Right posterior cerebral artery: Unremarkable. No occlusion or significant stenosis. No aneurysm. Right do tebral artery: Unremarkable as visualized. Left internal carotid artery: No acute findings. Intracran ial segment is patent with no significant stenosis. No aneurysm. Left anterior cerebral artery: Unremarkable. No occlusion or significant steno sis. No aneurysm. Left middle cerebral artery: Unremarkable. No occlusion or significant stenosis. No aneurysm. Left posterior cerebral artery: Unremarkable. No occlusion or significant stenosis. No aneurysm. Left vertebral artery: Unremarkable as visualized. Basilar artery: Unremarkable. No occlusion or significant stenosis. No aneurysm. HEAD: Brain: Diffuse subarachnoid hemorrhage which is less apparent when compared to the prior examination performed on 06/15/2017. Ventricles: Stable amount of intraventricular hemorrhage within the lateral ventricles, third ventric le, and fourth ventricle. Bones/joints: No acute fracture. Soft tissues: Unremarkable. Sinuses: Minimal partial ethmoid, sphenoid, and left maxillary sinusitis. Mastoid air cells: Unremarkable as visualized. No mastoid effusion. IMPRESSION: 1. Diffuse subarachnoid hemorrhage which is less apparent when compared to the prior examination performed on 06/15/2017. 2. Stable amount of intraventricular hemorrhage within the lateral ventricles, third ventricle, and fourth ventricle. 3. CTA head within normal limits. No aneurysm is identified. Thank you for allowing us to participate in the care of your patient. Dictated and Authenticated by: Ray Bradley MD 06/16/2017 4:52 AM Central Time ([place] & [place]) FINAL REPORT CT ANGIOGRAM OF THE HEAD: COMPARISON: 06/14/17. HISTORY: Intracranial hemorrhage/subarachnoid hemorrhage. Followup exam. TECHNIQUE: CT angiogram of the head was performed in the axial plane. Sagittal and coronal 3-dimensional reform atted images are submitted for interpretation. FINDINGS: This report is in agreement with the preliminary report by [facility]. Redemonstration of intracranial hemo rrhage as detailed in the preliminary report by [facility]. The overall degree of subarachnoid blood has de creased. There is redemonstration of intraventricular blood. There is interval mild prominence of v entricular system suggesting component of hydrocephalus. No obvious aneurysm at the level of the [place]. There is a subtle hypodensity on the media l right frontal lobe, near the vertex. Small component of possible infarction cannot be excluded. CODE T POS: [facility]
--- NOTE | 2017-06-16 09:17 | RAD ---
CHEST 1 VIEW: Date: 06/16/17 HISTORY: Dyspnea. Follow-up. COMPARISON: 06/15/17. FINDINGS: Cardiac silhouette is magnified by projection. Pulmonary vasculature remains engorged. Widespread dedra eolar infiltrate involving each lobe has improved slightly since the previous study. Mediastinum nick ins midline. Lines and tubes are unchanged in position. IMPRESSION: Slight improvement in aeration of each lung. Widespread air space disease has improved slightly. POS: [facility]
[2017-06-16] MEDS: AMINOCAPROIC ACID IV SCH ×2 (11:26→20:53)
[2017-06-16] MEDS: SODIUM CHLORIDE 0.9% IV SCH ×2 (11:26→20:53)
--- NOTE | 2017-06-16 14:55 | PDOC.PN ---
- Subjective Encounter Start Date: 06/16/17 Encounter Start Time: 14:54 Subjective: remains intubated.moves extremities when sedation reduced - Objective MAR Reviewed: Yes Vital Signs & Weight: Vital Signs (12 hours) Temp Pulse Pulse Pulse Resp BP BP 06/16/17 14:53 72 139/88 06/16/17 14:51 60 14 06/16/17 14:00 14 06/16/17 12:00 98.4 F 14 06/16/17 11:02 76 88 118/77 06/16/17 10:38 86 109/77 06/16/17 10:00 16 06/16/17 08:00 98.6 F 60 22 H 06/16/17 06:49 87 117/77 06/16/17 06:46 94 20 06/16/17 06:00 20 06/16/17 04:00 98.7 F 20 BP Pulse Ox Pulse Ox Pulse Ox 06/16/17 14:53 06/16/17 14:51 94 L 06/16/17 14:00 06/16/17 12:00 06/16/17 11:02 107/69 95 95 06/16/17 10:38 06/16/17 10:00 06/16/17 08:00 96 06/16/17 06:49 06/16/17 06:46 99 06/16/17 06:00 06/16/17 04:00 Weight Admit Weight 234 lb 7.437 oz Weight 230 lb 13.184 oz Most Recent Monitor Data Heart Rate from ECG 87 NIBP 139/88 NIBP BP-Mean 99 Respiration from ECG 14 SpO2 97 I&O: 06/15/17 06/16/17 06/17/17 06:59 06:59 06:59 Intake Total 3133 3903 180 Output Total 2230 2860 790 Balance 903 1043 -610 Result Diagrams: 06/16/17 03:16 06/16/17 03:16 Phys Exam - Physical Examination Constitutional: NAD HEENT: PERRLA, moist MMs, sclera anicteric, oral pharynx no lesions ETT Neck: no nodes, no JVD, supple, full ROM Respiratory: no wheezing, no rales, no rhonchi, clear to auscultation bilateral Cardiovascular: RRR, no significant murmur Gastrointestinal: soft, non-tender, no distention, positive bowel sounds Musculoskeletal: no edema, pulses present Neurological: moves all 4 limbs Skin: no rash Dx/Plan (1) SAH (subarachnoid hemorrhage) Code(s): I60.9 - NONTRAUMATIC SUBARACHNOID HEMORRHAGE, UNSPECIFIED Status: Acute (2) NSTEMI (non-ST elevated myocardial infarction) Code(s): I21.4 - NON-ST ELEVATION (NSTEMI) MYOCARDIAL INFARCTION Status: Acute Comment: conservative management per cardiology (3) Acute hypoxemic respiratory failure Code(s): J96.01 - ACUTE RESPIRATORY FAILURE WITH HYPOXIA Status: Acute (4) Aspiration pneumonia Code(s): J69.0 - PNEUMONITIS DUE TO INHALATION OF FOOD AND VOMIT Status: Acute (5) Metabolic acidosis Code(s): E87.2 - ACIDOSIS Status: Acute (6) Lactic acid acidosis Code(s): E87.2 - ACIDOSIS Status: Acute (7) HTN (hypertension) Code(s): I10 - ESSENTIAL (PRIMARY) HYPERTENSION Status: Chronic - Plan plan discussed w/ family, continue antibiotics, PT/OT, director social, respiratory therapy, incentive spirometry, DVT proph w/SCDs CTA negative for aneurysm.cont supportive care -: Vent per PCCM. -: frequent neuro checks. -: BP controlled. cont Nimodipine. -: IM team will follow * . Review of Systems - Review of Systems Other: can not be obtained due to sedation and intubation - Medications/Allergies Allergies/Adverse Reactions: Allergies Allergy/AdvReac Type Severity Reaction Status Date / Time ibuprofen Allergy Unverified 06/14/17 17:29 Medications: Current Medications Albuterol/Ipratropium (Duoneb) 3 ml NEB [id number] [place] Last Admin: 06/16/17 14:51 Dose: 3 ml Diphenhydramine HCl (Benadryl) 50 mg IVP Q6H PRN PRN Reason: Itching Aminocaproic Acid 10 gm/ (Sodium Chloride) 540 mls @ 54 mls/hr IV INF [place] Last Admin: 06/16/17 11:26 Dose: 540 mls Nicardipine HCl 25 mg/ Sodium (Chloride) 260 mls @ 0 mls/hr IVPB INF [place]; Titrate PRN Reason: Protocol Sodium Chloride (Normal Saline 0.9%) 1,000 mls @ 80 mls/hr IV .[id number] [place] Last Admin: 06/16/17 03:11 Dose: 1,000 mls Fentanyl Citrate 2,000 mcg/ (Sodium Chloride) 100 mls @ 0 mls/hr IV INF [place]; Per Protocol PRN Reason: Protocol Stop: 07/14/17 16:00 Fentanyl Citrate (Fentanyl Bolus) 250 mls @ 0 mls/hr IVPB PRN PRN; As Directed PRN Reason: Breakthrough pain Stop: 07/14/17 16:00 Potassium Chloride 40 meq/ (Sodium Chloride) 270 mls @ 135 mls/hr IVPB ASDIR PRN PRN Reason: FOR SERUM K+ 2.5 - 3.5 Potassium Chloride 40 meq/ (Device) 100 mls @ 50 mls/hr IVPB ASDIR PRN PRN Reason: FOR SERUM K+ 2.5 - 3.5 Magnesium Sulfate 1 gm/ Sodium (Chloride) 102 mls @ 102 mls/hr IV PRN PRN PRN Reason: MAG LEVEL 1.4 - 2.0 Magnesium Sulfate 2 gm/ Device 100 mls @ 100 mls/hr IVPB ASDIR PRN PRN Reason: MAGNESIUM < 1.4 Potassium Phosphate 9 mmol/ (Sodium Chloride) 103 mls @ 25.75 mls/hr IVPB ASDIR PRN PRN Reason: Phosphate 1.0-1.8 Potassium Phosphate 12 mmol/ (Sodium Chloride) 254 mls @ 63.5 mls/hr IV ASDIR PRN PRN Reason: Serum phosphate 0.5-0.9 Potassium Phosphate 15 mmol/ (Sodium Chloride) 255 mls @ 63.75 mls/hr IV ASDIR PRN PRN Reason: Serum Phos < 0.5 Piperacillin Sod/Tazobactam (Sod 3.375 gm/ Sodium Chloride) 100 mls @ 200 mls/ hr IVPB 0300,0900,1500,2100 [facility] Last Admin: 06/16/17 08:47 Dose: 100 mls Lorazepam (Ativan) 2 mg SLOW IVP Q2H PRN PRN Reason: Anxiety to achieve Quesada 2-3 Stop: 07/14/17 16:00 Magnesium Oxide (Magnesium Oxide) 400 mg PO BIDPRN PRN PRN Reason: FOR SERUM MAG 1.4 - 2.0 Magnesium Oxide (Magnesium Oxide) 800 mg PO PRN PRN PRN Reason: FOR SERUM MAG < 1.4 Miscellaneous Medication (Phos-Nak) 1 pkt PO TIDPRN PRN PRN Reason: FOR PHOS LEVEL 1.0 - 1.8 Miscellaneous Medication (Phos-Nak) 2 pkt PO TIDPRN PRN PRN Reason: FOR PHOS LEVEL 0.5 - 1.0 Morphine Sulfate (Morphine) 2 mg SLOW IVP Q2H PRN PRN Reason: Breakthrough pain Stop: 07/14/17 16:00 Nimodipine (Nimodipine) 60 mg PO Q4HR [facility] Last Admin: 06/16/17 13:54 Dose: 60 mg Discontinue Previous Narcotic Pain Medications And Benzodiazepines 1 each FS .ONE [facility] Stop: 07/14/17 16:00 Ccu Electrolyte (Replacement Protocol) 0 each FS PRN PRN PRN Reason: FOR ELECTROLYTE REPLACEMENT Pantoprazole Sodium (Protonix) 40 mg IVP DAILY [facility] Last Admin: 06/16/17 08:48 Dose: 40 mg Potassium Chloride (K-Dur) 40 meq PO ASDIR PRN PRN Reason: FOR SERUM K+ 2.5 - 3.5 Potassium Chloride (Klor-Con) 40 meq PER TUBE ASDIR PRN PRN Reason: FOR SERUM K+ 2.5-3.5 Last Admin: 06/16/17 05:23 Dose: 40 meq Promethazine HCl (Phenergan) 25 mg IM Q4H PRN PRN Reason: Nausea/Vomiting Propofol (Diprivan) 1,000 mg IV INF PRN; Protocol PRN Reason: TO ACHIEVE QUESADA SCORE 2-3 Stop: 07/14/17 16:00 Last Admin: 06/16/17 11:26 Dose: 1,000 mg Rocuronium [place] (Zemuron) 50 mg IVP Q30MIN PRN PRN Reason: Agitation Sodium Chloride (Flush - Normal Saline) 10 ml IVF Q12HR [facility] Last Admin: 06/16/17 08:48 Dose: 10 ml Sodium Chloride (Flush - Normal Saline) 10 ml IVF PRN PRN PRN Reason: Saline Flush Sodium Chloride (Flush - Normal Saline) 10 ml IV DAILY [facility] Last Admin: 06/16/17 08:48 Dose: 10 ml
--- NOTE | 2017-06-16 15:52 | PRG ---
DATE OF SERVICE: 06/16/2017 SUBJECTIVE: Mr. Hassan appears to neurologically slowly be improving. He continues to withdraw to pain and appears agitated, moving all 4 extremities. He is not following commands. This was noted per the nurse. Upon my arrival, the patient was placed back on propofol. OBJECTIVE: VITAL SIGNS: Blood pressure 139/88, pulse 87, temperature afebrile. LUNGS: Clear to auscultation. CARDIAC: Regular rate and rhythm. ABDOMEN: Soft, nontender, nondistended. EXTREMITIES: No edema. GENERAL: The patient continues to be intubated. PERTINENT LABORATORY DATA: Hemoglobin 14.1 and creatinine 1.25. IMPRESSION: 1. Subarachnoid hemorrhage. 2. Elevated troponin. 3. Respiratory failure. RECOMMENDATIONS: Neurologically, Mr. Hassan appears to be improving, due to he is on propofo l. At this point, we will continue conservative measures. No significant dysrhythmias are noted. W e will avoid aspirin or any antiplatelet or anticoagulation treatment due to recent subarachnoid hemo rrhage. Patient's troponin may be due to a ruptured plaque versus demand ischemia. At this point, m anagement is unchanged.
[2017-06-17] MEDS: niMODipine 30 MG CAP PO SCH ×6 (01:08→20:15)
[2017-06-17] MEDS: Propofol 1,000 MG/100 ML VIAL IV PRN ×6 (02:03→23:38)
[2017-06-17] MEDS: Piperacillin/Tazobactam 3.375 GM in Sodium Chloride 0.9% 100 ML IVPB SCH ×4 (03:08→20:16)
[2017-06-17] MEDS: Sodium Chloride 0.9% 1,000 ML IV SCH ×2 (05:05→20:15)
[2017-06-17 05:23] LABS: #Eosinphils 0.1 thou/uL (0.0-0.7); #Lymphocytes 0.9 thou/uL (1.20-3.40); #Monocytes 0.4 thou/uL (0.11-0.59); #Neutrophils 7.6 thou/uL (1.40-6.50); %Basophils 0.5 % (0.0-1.0); %Eosinophils 1.4 % (0.0-10.0); %Lymphocytes 9.5 % (21.0-51.0); %Monocytes 4.9 % (0.0-10.0); %Neutrophils 83.7 % (42.0-75.0); Hemoglobin 11.7 g/dL (14.0-18.0); Mean Corpuscular Hemoglobin 32.8 pg (27.0-31.0); Mean Corpuscular Volume 99.6 fl (80.0-94.0); Mean Platelet Volume 10.8 fL (7.4-10.4); Platelet Count 113 thou/uL (130-400); Red Blood Cell (RBC) Count 3.55 mill/uL (4.70-6.10); White Blood Cell (WBC) Count 9.1 thou/uL (4.8-10.8)
[2017-06-17 05:33] LABS: ALT (SGPT) 13 U/L (8-55); AST (SGOT) 24 U/L (5-34); Albumin 2.9 g/dL (3.5-5.0); Alkaline Phosphatase 73 U/L (40-150); Anion Gap 9 mmol/L (10-20); BUN (Urea Nitrogen) 15 mg/dL (8.9-20.6); Bilirubin, Total 0.9 mg/dL (0.2-1.2); Calc. Creatinine Clearance 125 mL/min (70-130); Calcium 8.4 mg/dL (7.8-10.44); Carbon Dioxide 22 mmol/L (22-29); Chloride 114 mmol/L (98-107); Estimated GFR-MDRD 89; Globulin 2.6 g/dL (2.4-3.5); Glucose 112 mg/dL (70-105); Potassium 3.4 mmol/L (3.5-5.1); Protein, Total 5.5 g/dL (6.0-8.3); Sodium 142 mmol/L (136-145)
[2017-06-17 07:55] LABS: CO2 Tension 39.6 mmHg (35.0-45.0); pH, Arterial 7.39 (7.35-7.45)
[2017-06-17 07:56] LABS: Actual Bicarbonate (HCO3a) 23.5 mEq/L (22-26); Base Excess (BEa) -1.2 mEq/L (0 (+/-) 2.5); Calcium, Ionized 1.2 mmol/L (1.12-1.30); Hematocrit-ABG 34.4 % (42.0-52.0); Hemoglobin (Hb) 12.2 g/dL (14.0-18.0); O2 Tension (PaO2) 93.5 mmHg (80.0-100.0)
[2017-06-17 07:57] LABS: Puncture Site RBA
[2017-06-17] MEDS: Pantoprazole 40 MG VIAL IVP SCH (08:40)
--- NOTE | 2017-06-17 09:02 | RAD ---
CHEST 1 VIEW: Date: 06/17/17 HISTORY: Dyspnea. Follow-up. COMPARISON: 06/16/17. FINDINGS: Cardiac silhouette is magnified by projection. Pulmonary vasculature is more engorged with worsening infiltrates at the right base and throughout the left lung. Bilateral pleural fluid is suspected. Med iastinum is midline. Lines and tubes appear unchanged in position. IMPRESSION: Worsening pulmonary edema and infiltrates throughout the left lung and right lung base. POS: JACOBH
[2017-06-17] MEDS: SODIUM CHLORIDE 0.9% IV SCH ×2 (09:49→23:22)
[2017-06-17] MEDS: AMINOCAPROIC ACID IV SCH ×2 (09:49→23:22)
--- NOTE | 2017-06-17 11:08 | CT ---
CT HEAD NONCONTRAST DATE: 06/17/17 HISTORY: Intracranial hemorrhage. Follow-up. COMPARISON: 06/15/17. FINDINGS: Hyperdense fluid in the dependent portion of each lateral ventricle has increased slightly since the previous study. Widespread subarachnoid hemorrhage is stable. Diffuse cerebral edema is similar in ap pearance to the previous exam. Septum pellucidum remains midline. IMPRESSION: Slight interval increase in amount of intraventricular blood. Mild ventricular dilatation, subarachno id hemorrhage, and cerebral edema are otherwise unchanged in appearance. POS: ALPHONSO
--- NOTE | 2017-06-17 14:03 | PRG ---
DATE OF SERVICE: 06/17/2017 Mr. Hassan is now 3 days status post admission for subarachnoid hemorrhage. He has had 2 [address] angiog brodie, which were negative for underlying etiology for subarachnoid hemorrhage. There are plans for c erebral angiography to be performed Monday. He remains in critical condition in the ICU. He remains intubated and sedated. Off of examination, he has a very poor neurologic exam which is stable for t he most part as compared to the last 48 hours. He will move his extremities to deep stimulation. He otherwise has no purposeful movements. He has had a repeat CT examination, which has been stable. He has a mild prominence of the ventricles. We will continue to monitor that and if need be, place a ventriculostomy.
--- NOTE | 2017-06-17 14:26 | PRG ---
DATE OF SERVICE: 06/17/2017 SUBJECTIVE: Mr. Hassan is a 47-year-old man on third day of his hospital admission for significant subarachnoid hemorrhage. His neurologic exam right now is fully assessed as he is sedated heavily p sreekanth citing the back that if we go down on his sedation, exam is rather agitated and is in restrai nts for that purpose is again neurologic status or examination is poor at this time for me. Yesterda y, his full ventricular system appeared to be somewhat enlarged from the first scan, so we will repea t a CT this morning to evaluate any further progression and possible evaluation for placement of an E VD as needed. Until then, we will just continue to monitor.
--- NOTE | 2017-06-17 14:50 | PDOC.PN ---
- Subjective Encounter Start Date: 06/17/17 Encounter Start Time: 14:48 Subjective: remains on vent and sedated - Objective MAR Reviewed: Yes Vital Signs & Weight: Vital Signs (12 hours) Temp Pulse Pulse Pulse Resp BP BP 06/17/17 14:20 67 146/94 H 06/17/17 14:00 14 06/17/17 12:00 98.8 F 14 06/17/17 10:00 14 06/17/17 08:45 97 75 151/91 H 06/17/17 08:00 98.8 F 68 14 06/17/17 07:24 72 123/76 06/17/17 07:22 73 14 06/17/17 06:00 14 06/17/17 04:00 98.4 F 14 BP Pulse Ox Pulse Ox 06/17/17 14:20 06/17/17 14:00 06/17/17 12:00 06/17/17 10:00 06/17/17 08:45 137/90 97 06/17/17 08:00 100 06/17/17 07:24 06/17/17 07:22 99 06/17/17 06:00 06/17/17 04:00 Weight Admit Weight 234 lb 7.437 oz Weight 231 lb 11.293 oz Most Recent Monitor Data Heart Rate from ECG 66 NIBP 146/94 NIBP BP-Mean 108 Respiration from ECG 14 SpO2 100 I&O: 06/16/17 06/17/17 06/18/17 06:59 06:59 06:59 Intake Total 3903 4947 120 Output Total 2860 2455 650 Balance 1043 2492 -530 Result Diagrams: 06/17/17 04:38 06/17/17 04:38 Additional Labs: Laboratory Tests 06/14/17 06/15/17 06/16/17 12:31 04:18 03:16 WBC 10.0 12.1 H 11.3 H Radiology Reviewed by me: Yes Phys Exam - Physical Examination Constitutional: NAD HEENT: PERRLA, moist MMs, sclera anicteric, oral pharynx no lesions Neck: no JVD Respiratory: no wheezing, no rales, no rhonchi, clear to auscultation bilateral Cardiovascular: RRR, no significant murmur Gastrointestinal: soft, no distention, positive bowel sounds Musculoskeletal: no edema, pulses present Dx/Plan (1) SAH (subarachnoid hemorrhage) Code(s): I60.9 - NONTRAUMATIC SUBARACHNOID HEMORRHAGE, UNSPECIFIED Status: Acute (2) NSTEMI (non-ST elevated myocardial infarction) Code(s): I21.4 - NON-ST ELEVATION (NSTEMI) MYOCARDIAL INFARCTION Status: Acute Comment: conservative management per cardiology (3) Acute hypoxemic respiratory failure Code(s): J96.01 - ACUTE RESPIRATORY FAILURE WITH HYPOXIA Status: Acute (4) Aspiration pneumonia Code(s): J69.0 - PNEUMONITIS DUE TO INHALATION OF FOOD AND VOMIT Status: Acute (5) Metabolic acidosis Code(s): E87.2 - ACIDOSIS Status: Acute (6) Lactic acid acidosis Code(s): E87.2 - ACIDOSIS Status: Acute (7) HTN (hypertension) Code(s): I10 - ESSENTIAL (PRIMARY) HYPERTENSION Status: Chronic - Plan continue antibiotics, DVT proph w/SCDs Brain CT stable but w mild hydrocephalus -: NS following w plans for CTA on Monday.may need EVD -: BP controlled.cont meds.on Amicar,Nimodipine -: am labs -: conservative Management of ACS.cardiology following * . Review of Systems - Review of Systems Other: can not be obtained due to sedation/intubation - Medications/Allergies Allergies/Adverse Reactions: Allergies Allergy/AdvReac Type Severity Reaction Status Date / Time ibuprofen Allergy Unverified 06/14/17 17:29 Medications: Current Medications Albuterol/Ipratropium (Duoneb) 3 ml NEB [id number] [place] Last Admin: 06/17/17 07:22 Dose: 3 ml Diphenhydramine HCl (Benadryl) 50 mg IVP Q6H PRN PRN Reason: Itching Aminocaproic Acid 10 gm/ (Sodium Chloride) 540 mls @ 54 mls/hr IV INF [place] Last Admin: 06/17/17 09:49 Dose: 540 mls Nicardipine HCl 25 mg/ Sodium (Chloride) 260 mls @ 0 mls/hr IVPB INF [place]; Titrate PRN Reason: Protocol Sodium Chloride (Normal Saline 0.9%) 1,000 mls @ 80 mls/hr IV .[id number] [place] Last Admin: 06/17/17 05:05 Dose: 1,000 mls Fentanyl Citrate 2,000 mcg/ (Sodium Chloride) 100 mls @ 0 mls/hr IV INF [place]; Per Protocol PRN Reason: Protocol Stop: 07/14/17 16:00 Fentanyl Citrate (Fentanyl Bolus) 250 mls @ 0 mls/hr IVPB PRN PRN; As Directed PRN Reason: Breakthrough pain Stop: 07/14/17 16:00 Potassium Chloride 40 meq/ (Sodium Chloride) 270 mls @ 135 mls/hr IVPB ASDIR PRN PRN Reason: FOR SERUM K+ 2.5 - 3.5 Potassium Chloride 40 meq/ (Device) 100 mls @ 50 mls/hr IVPB ASDIR PRN PRN Reason: FOR SERUM K+ 2.5 - 3.5 Magnesium Sulfate 1 gm/ Sodium (Chloride) 102 mls @ 102 mls/hr IV PRN PRN PRN Reason: MAG LEVEL 1.4 - 2.0 Magnesium Sulfate 2 gm/ Device 100 mls @ 100 mls/hr IVPB ASDIR PRN PRN Reason: MAGNESIUM < 1.4 Potassium Phosphate 9 mmol/ (Sodium Chloride) 103 mls @ 25.75 mls/hr IVPB ASDIR PRN PRN Reason: Phosphate 1.0-1.8 Potassium Phosphate 12 mmol/ (Sodium Chloride) 254 mls @ 63.5 mls/hr IV ASDIR PRN PRN Reason: Serum phosphate 0.5-0.9 Potassium Phosphate 15 mmol/ (Sodium Chloride) 255 mls @ 63.75 mls/hr IV ASDIR PRN PRN Reason: Serum Phos < 0.5 Piperacillin Sod/Tazobactam (Sod 3.375 gm/ Sodium Chloride) 100 mls @ 200 mls/ hr IVPB 0300,0900,1500,2100 [facility] Last Admin: 06/17/17 14:16 Dose: 100 mls Lorazepam (Ativan) 2 mg SLOW IVP Q2H PRN PRN Reason: Anxiety to achieve Quesada 2-3 Stop: 07/14/17 16:00 Magnesium Oxide (Magnesium Oxide) 400 mg PO BIDPRN PRN PRN Reason: FOR SERUM MAG 1.4 - 2.0 Magnesium Oxide (Magnesium Oxide) 800 mg PO PRN PRN PRN Reason: FOR SERUM MAG < 1.4 Miscellaneous Medication (Phos-Nak) 1 pkt PO TIDPRN PRN PRN Reason: FOR PHOS LEVEL 1.0 - 1.8 Miscellaneous Medication (Phos-Nak) 2 pkt PO TIDPRN PRN PRN Reason: FOR PHOS LEVEL 0.5 - 1.0 Morphine Sulfate (Morphine) 2 mg SLOW IVP Q2H PRN PRN Reason: Breakthrough pain Stop: 07/14/17 16:00 Nimodipine (Nimodipine) 60 mg PO Q4HR [facility] Last Admin: 06/17/17 13:12 Dose: 60 mg Discontinue Previous Narcotic Pain Medications And Benzodiazepines 1 each FS .ONE [facility] Stop: 07/14/17 16:00 Ccu Electrolyte (Replacement Protocol) 0 each FS PRN PRN PRN Reason: FOR ELECTROLYTE REPLACEMENT Pantoprazole Sodium (Protonix) 40 mg IVP DAILY [facility] Last Admin: 06/17/17 08:40 Dose: 40 mg Potassium Chloride (K-Dur) 40 meq PO ASDIR PRN PRN Reason: FOR SERUM K+ 2.5 - 3.5 Potassium Chloride (Klor-Con) 40 meq PER TUBE ASDIR PRN PRN Reason: FOR SERUM K+ 2.5-3.5 Last Admin: 06/16/17 05:23 Dose: 40 meq Promethazine HCl (Phenergan) 25 mg IM Q4H PRN PRN Reason: Nausea/Vomiting Propofol (Diprivan) 1,000 mg IV INF PRN; Protocol PRN Reason: TO ACHIEVE QUESADA SCORE 2-3 Stop: 07/14/17 16:00 Last Admin: 06/17/17 14:16 Dose: 1,000 mg Rocuronium [place] (Zemuron) 50 mg IVP Q30MIN PRN PRN Reason: Agitation Sodium Chloride (Flush - Normal Saline) 10 ml IVF Q12HR [facility] Last Admin: 06/17/17 08:40 Dose: 10 ml Sodium Chloride (Flush - Normal Saline) 10 ml IVF PRN PRN PRN Reason: Saline Flush Sodium Chloride (Flush - Normal Saline) 10 ml IV DAILY [facility] Last Admin: 06/17/17 08:40 Dose: 10 ml
[2017-06-17] MEDS: Morphine 4 MG/ML VIAL SLOW IVP PRN ×2 (18:39→22:16)
[2017-06-18] MEDS: hydrALAZINE 20 MG/ML VIAL SLOW IVP PRN ×7 (00:22→22:13)
[2017-06-18] MEDS: niMODipine 30 MG CAP PO SCH ×6 (01:19→20:45)
[2017-06-18] MEDS: Piperacillin/Tazobactam 3.375 GM in Sodium Chloride 0.9% 100 ML IVPB SCH ×4 (02:32→20:45)
[2017-06-18] MEDS: Morphine 4 MG/ML VIAL SLOW IVP PRN ×2 (03:14→18:40)
[2017-06-18] MEDS: Propofol 1,000 MG/100 ML VIAL IV PRN ×6 (03:23→23:45)
[2017-06-18] MEDS ORDERED: hydrALAZINE 20 MG/ML VIAL SLOW IVP PRN (04:39)
[2017-06-18] MEDS ORDERED: Furosemide 40 MG/4 ML VIAL SLOW IVP SCH (04:45)
[2017-06-18 04:49] LABS: Anion Gap 14 mmol/L (10-20); BUN (Urea Nitrogen) 17 mg/dL (8.9-20.6); Calc. Creatinine Clearance 139 mL/min (70-130); Calcium 9.1 mg/dL (7.8-10.44); Carbon Dioxide 20 mmol/L (22-29); Chloride 114 mmol/L (98-107); Estimated GFR-MDRD Greater than 90; Glucose 161 mg/dL (70-105); Potassium 3.1 mmol/L (3.5-5.1); Sodium 145 mmol/L (136-145)
[2017-06-18 05:01] LABS: #Eosinphils 0.2 thou/uL (0.0-0.7); #Lymphocytes 0.9 thou/uL (1.20-3.40); #Monocytes 0.5 thou/uL (0.11-0.59); #Neutrophils 9.3 thou/uL (1.40-6.50); %Basophils 0.3 % (0.0-1.0); %Eosinophils 1.5 % (0.0-10.0); %Lymphocytes 7.9 % (21.0-51.0); %Monocytes 4.4 % (0.0-10.0); %Neutrophils 85.9 % (42.0-75.0); Hemoglobin 12.5 g/dL (14.0-18.0); Mean Corpuscular HGB CONC 33.1 g/dL (32.0-36.0); Mean Corpuscular Hemoglobin 32.6 pg (27.0-31.0); Mean Corpuscular Volume 98.6 fl (80.0-94.0); Mean Platelet Volume 10.3 fL (7.4-10.4); Platelet Count 145 thou/uL (130-400); RBC Distribution Width 14.1 % (11.5-14.5); Red Blood Cell (RBC) Count 3.83 mill/uL (4.70-6.10); White Blood Cell (WBC) Count 10.1 thou/uL (4.8-10.8)
[2017-06-18] MEDS ORDERED: Labetalol HCl 100 MG/20 ML VIAL SLOW IVP PRN (07:34)
[2017-06-18] MEDS ORDERED: Acetaminophen 1,000 MG in Premix Bag 1 BAG IVPB PRN (07:34)
[2017-06-18] MEDS ORDERED: CCU Electrolyte Replacement 1 EACH FS ONE (07:34)
--- NOTE | 2017-06-18 07:49 | RAD ---
CHEST 1 VIEW: Date: 06/18/17 HISTORY: Dyspnea. Follow-up. COMPARISON: 06/17/17. FINDINGS: Cardiac silhouette is magnified by projection. Pulmonary vasculature remains engorged. Patchy areas o f parenchymal opacity throughout each lung are similar in appearance to the previous exam. Mediastinu m is midline. Lines and tubes appear unchanged in position. campus monitor leads overlie the chest. IMPRESSION: Pulmonary edema and other findings are stable. POS: ALPHONSO
[2017-06-18] MEDS ORDERED: Lisinopril 20 MG TAB PO SCH ×2 (07:54→08:00)
[2017-06-18 08:00] LABS: Actual Bicarbonate (HCO3a) 22.5 mEq/L (22-26); Base Excess (BEa) -0.6 mEq/L (0 (+/-) 2.5); CO2 Tension 32.4 mmHg (35.0-45.0); Hematocrit-ABG 38.7 % (42.0-52.0); O2 Tension (PaO2) 63.5 mmHg (80.0-100.0); pH, Arterial 7.46 (7.35-7.45)
[2017-06-18 08:01] LABS: Calcium, Ionized 1.2 mmol/L (1.12-1.30); Puncture Site RBA
[2017-06-18] MEDS ORDERED: Potassium Chloride 40 MEQ in Sodium Chloride 0.9% 250 ML 250 ML IVPB SCH (08:15)
[2017-06-18] MEDS ORDERED: niCARdipine HCl 50 MG in Sodium Chloride 0.9% 250 ML 250 ML IVPB SCH (08:15)
[2017-06-18] MEDS: Pantoprazole 40 MG VIAL IVP SCH (08:29)
[2017-06-18] MEDS ORDERED: Lidocaine 1% w/Epinephrine 1:200K 30 ML VIAL ONE (09:57)
[2017-06-18] MEDS: Labetalol HCl 100 MG/20 ML VIAL SLOW IVP PRN ×5 (10:07→23:34)
--- NOTE | 2017-06-18 10:12 | CT ---
HEAD CT NONCONTRAST: Date: 06/18/17 COMPARISON: Previous day. INDICATION: Hydrocephalus evaluation. Follow-up for intracranial hemorrhage. FINDINGS: Redemonstration of intraventricular hemorrhage. There is enlargement of the ventricular system, likel y on the basis of obstructive hydrocephalus in light of the intraventricular hemorrhage. Slight degre e of periventricular hypoattenuation is present, which could be on the basis of transependymal CSF mi gration, in light of concomitant findings. No new midline shift. Scattered subarachnoid hemorrhage re rocael, bilaterally. IMPRESSION: Redemonstration of intraventricular hemorrhage and subarachnoid hemorrhage. There is resultant promin ence of the ventricular system, slightly progressed from prior exam, with suggestion of associated tr ansependymal migration of CSF. Recommend continued follow-up. POS: ALPHONSO
--- NOTE | 2017-06-18 11:07 | PRG ---
DATE OF SERVICE: 06/17/2017 SUBJECTIVE: Mr. Marcos Hassan remains intubated in the vent, sedated on Diprivan. OBJECTIVE: VITAL SIGNS: His pulse is 57, blood pressure 150/97, respiratory rate is 15. His I's and O's are 4947 in, 245 out. His maximum temperature has been 97. HEENT: Pupils are equal, 2 mm. Throat, negative. Neck, negative. CHEST: With extensive rhonchi and crackles. CARDIAC: Normal S1, S2, no gallops. ABDOMEN: Soft. EXTREMITIES: No edema. NEUROLOGIC: He is unresponsive. X-RAY FINDINGS: X-ray shows extensive left-sided infiltrate. LABORATORY DATA: White count 9000, H&H is 11 and 35, platelet count is 113, low. PO2 is 93, pCO2 35 , 40%. BUN and creatinine are normal. IMPRESSION: 1. Status post subarachnoid hemorrhage. 2. Left-sided pneumonia, probably aspiration. 3. Hypertension. IMAGING: No obvious aneurysm was detected on his CT angiogram of the head apparently. PLAN: Continue IV antibiotics, Zosyn. Sputum is being cultured. He is on aminocaproic acid drip. He is on nimodipine, via the NG tube start nutrition. We will follow. One-half hour critical care time. PETER
[2017-06-18] MEDS ORDERED: Morphine 4 MG/ML VIAL SLOW IVP SCH (11:45)
--- NOTE | 2017-06-18 13:04 | PDOC.PN ---
- Subjective Encounter Start Date: 06/18/17 Encounter Start Time: 13:02 Subjective: remains intubated and sedated - Objective MAR Reviewed: Yes Vital Signs & Weight: Vital Signs (12 hours) Temp Pulse Resp BP Pulse Ox 06/18/17 11:18 96 169/92 H 06/18/17 10:07 102 H 172/97 H 06/18/17 08:31 166/91 H 06/18/17 08:19 117 H 166/91 H 06/18/17 08:00 98.5 F 06/18/17 07:37 115 H 164/87 H 06/18/17 07:36 116 H 22 H 100 06/18/17 05:59 26 H 06/18/17 04:40 88 165/80 H 06/18/17 04:00 98.9 F 30 H 06/18/17 02:46 98 170/81 H 06/18/17 02:31 88 182/79 H 06/18/17 02:01 85 166/80 H 06/18/17 02:00 26 H 06/18/17 01:31 89 172/89 H 06/18/17 01:18 87 191/90 H Weight Admit Weight 234 lb 7.437 oz Weight 234 lb 9.149 oz Most Recent Monitor Data Heart Rate from ECG 95 NIBP 169/92 NIBP BP-Mean 122 Respiration from ECG 20 SpO2 92 I&O: 06/17/17 06/18/17 06/19/17 06:59 06:59 06:59 Intake Total 4947 6023 1100 Output Total 2455 4080 1750 Balance 2492 1943 -650 Result Diagrams: 06/18/17 04:27 06/18/17 04:27 Additional Labs: Microbiology 06/17/17 14:05 Sputum Respiratory Culture - Preliminary Staphylococcus aureus Phys Exam - Physical Examination Constitutional: NAD HEENT: PERRLA, moist MMs, sclera anicteric, oral pharynx no lesions Neck: no JVD Respiratory: no wheezing, no rales, no rhonchi, clear to auscultation bilateral Cardiovascular: RRR, no significant murmur Gastrointestinal: soft, no distention, positive bowel sounds Musculoskeletal: no edema, pulses present Neurological: non-focal, normal sensation, moves all 4 limbs Dx/Plan (1) SAH (subarachnoid hemorrhage) Code(s): I60.9 - NONTRAUMATIC SUBARACHNOID HEMORRHAGE, UNSPECIFIED Status: Acute (2) NSTEMI (non-ST elevated myocardial infarction) Code(s): I21.4 - NON-ST ELEVATION (NSTEMI) MYOCARDIAL INFARCTION Status: Acute Comment: conservative management per cardiology (3) Acute hypoxemic respiratory failure Code(s): J96.01 - ACUTE RESPIRATORY FAILURE WITH HYPOXIA Status: Acute (4) Aspiration pneumonia Code(s): J69.0 - PNEUMONITIS DUE TO INHALATION OF FOOD AND VOMIT Status: Acute (5) Metabolic acidosis Code(s): E87.2 - ACIDOSIS Status: Acute (6) Lactic acid acidosis Code(s): E87.2 - ACIDOSIS Status: Acute (7) HTN (hypertension) Code(s): I10 - ESSENTIAL (PRIMARY) HYPERTENSION Status: Chronic - Plan vásquez catheter, continue antibiotics, respiratory therapy, incentive spirometry , DVT proph w/SCDs Cont supportive care. Management per NS. -: BP Uncontrolled .cont Nicardipine,Nimodipine.Add Lisinopril BID. -: Empiric antibiotic for aspiration PNA -: am labs * . Review of Systems - Review of Systems Other: unobtainable due to intubation ans sedation - Medications/Allergies Allergies/Adverse Reactions: Allergies Allergy/AdvReac Type Severity Reaction Status Date / Time ibuprofen Allergy Unverified 06/14/17 17:29 Medications: Current Medications Albuterol/Ipratropium (Duoneb) 3 ml NEB [id number] [place] Last Admin: 06/18/17 07:36 Dose: 3 ml Cefazolin Sodium (Ancef) 2 gm SLOW IVP Q8HR [place] Diphenhydramine HCl (Benadryl) 50 mg IVP Q6H PRN PRN Reason: Itching Hydralazine HCl (Apresoline) 20 mg SLOW IVP Q4H PRN PRN Reason: Hypertension Fentanyl Citrate 2,000 mcg/ (Sodium Chloride) 100 mls @ 0 mls/hr IV INF [place]; Per Protocol PRN Reason: Protocol Stop: 07/14/17 16:00 Fentanyl Citrate (Fentanyl Bolus) 250 mls @ 0 mls/hr IVPB PRN PRN; As Directed PRN Reason: Breakthrough pain Stop: 07/14/17 16:00 Potassium Chloride 40 meq/ (Sodium Chloride) 270 mls @ 135 mls/hr IVPB ASDIR PRN PRN Reason: FOR SERUM K+ 2.5 - 3.5 Potassium Chloride 40 meq/ (Device) 100 mls @ 50 mls/hr IVPB ASDIR PRN PRN Reason: FOR SERUM K+ 2.5 - 3.5 Magnesium Sulfate 1 gm/ Sodium (Chloride) 102 mls @ 102 mls/hr IV PRN PRN PRN Reason: MAG LEVEL 1.4 - 2.0 Magnesium Sulfate 2 gm/ Device 100 mls @ 100 mls/hr IVPB ASDIR PRN PRN Reason: MAGNESIUM < 1.4 Potassium Phosphate 9 mmol/ (Sodium Chloride) 103 mls @ 25.75 mls/hr IVPB ASDIR PRN PRN Reason: Phosphate 1.0-1.8 Potassium Phosphate 12 mmol/ (Sodium Chloride) 254 mls @ 63.5 mls/hr IV ASDIR PRN PRN Reason: Serum phosphate 0.5-0.9 Potassium Phosphate 15 mmol/ (Sodium Chloride) 255 mls @ 63.75 mls/hr IV ASDIR PRN PRN Reason: Serum Phos < 0.5 Piperacillin Sod/Tazobactam (Sod 3.375 gm/ Sodium Chloride) 100 mls @ 200 mls/ hr IVPB 0300,0900,1500,2100 [place] Last Admin: 06/18/17 08:29 Dose: 100 mls Acetaminophen 1,000 mg/ Device 100 mls @ 400 mls/hr IVPB Q6H PRN PRN Reason: Fever/Mild Pain Stop: 06/19/17 07:35 Esmolol HCl/Sodium Chloride (Brevibloc Rtu) 250 mls @ 0 mls/hr IVPB INF [place]; As Directed PRN Reason: Protocol Labetalol HCl (Normodyne) 10 mg SLOW IVP Q10MIN PRN PRN Reason: SBP > 140, HR > 70 Last Admin: 06/18/17 10:07 Dose: 10 mg Lisinopril (Zestril) 20 mg PO BID [place] Lorazepam (Ativan) 2 mg SLOW IVP Q2H PRN PRN Reason: Anxiety to achieve Quesada 2-3 Stop: 07/14/17 16:00 Last Admin: 06/18/17 04:37 Dose: 2 mg Magnesium Oxide (Magnesium Oxide) 400 mg PO BIDPRN PRN PRN Reason: FOR SERUM MAG 1.4 - 2.0 Magnesium Oxide (Magnesium Oxide) 800 mg PO PRN PRN PRN Reason: FOR SERUM MAG < 1.4 Miscellaneous Medication (Phos-Nak) 1 pkt PO TIDPRN PRN PRN Reason: FOR PHOS LEVEL 1.0 - 1.8 Miscellaneous Medication (Phos-Nak) 2 pkt PO TIDPRN PRN PRN Reason: FOR PHOS LEVEL 0.5 - 1.0 Morphine Sulfate (Morphine) 2 mg SLOW IVP Q2H PRN PRN Reason: Breakthrough pain Stop: 07/14/17 16:00 Last Admin: 06/18/17 03:14 Dose: 2 mg Nimodipine (Nimodipine) 60 mg PO Q4HR [facility] Last Admin: 06/18/17 08:29 Dose: 60 mg Discontinue Previous Narcotic Pain Medications And Benzodiazepines 1 each FS .ONE [facility] Stop: 07/14/17 16:00 Ccu Electrolyte (Replacement Protocol) 0 each FS PRN PRN PRN Reason: FOR ELECTROLYTE REPLACEMENT Pantoprazole Sodium (Protonix) 40 mg IVP DAILY [facility] Last Admin: 06/18/17 08:29 Dose: 40 mg Potassium Chloride (K-Dur) 40 meq PO ASDIR PRN PRN Reason: FOR SERUM K+ 2.5 - 3.5 Potassium Chloride (Klor-Con) 40 meq PER TUBE ASDIR PRN PRN Reason: FOR SERUM K+ 2.5-3.5 Last Admin: 06/18/17 05:09 Dose: 40 meq Promethazine HCl (Phenergan) 25 mg IM Q4H PRN PRN Reason: Nausea/Vomiting Propofol (Diprivan) 1,000 mg IV INF PRN; Protocol PRN Reason: TO ACHIEVE QUESADA SCORE 2-3 Stop: 07/14/17 16:00 Last Admin: 06/18/17 11:25 Dose: 1,000 mg Rocuronium [place] (Zemuron) 50 mg IVP Q30MIN PRN PRN Reason: Agitation Sodium Chloride (Flush - Normal Saline) 10 ml IVF Q12HR [facility] Last Admin: 06/18/17 08:24 Dose: 10 ml Sodium Chloride (Flush - Normal Saline) 10 ml IVF PRN PRN PRN Reason: Saline Flush Sodium Chloride (Flush - Normal Saline) 10 ml IV DAILY [facility] Last Admin: 06/18/17 08:30 Dose: 10 ml
[2017-06-18] MEDS: Esmolol 2,500 MG/250 ML 250 ML IVPB SCH ×5 (13:08→23:54)
[2017-06-18] MEDS: CEFAZOLIN/Water 2 GM/20 ML SYRINGE SLOW IVP SCH ×2 (14:30→21:50)
--- NOTE | 2017-06-18 14:41 | PRG ---
DATE OF SERVICE: 06/18/2017 SUBJECTIVE: Mr. Hassan is a 47-year-old gentleman that presents with a subarachnoid hemorrhage. Arlen johnson has had CT of the angiogram, which were negative for underlying etiology. He has become a little l ess responsive over the last [address] examination reveals increased size of his ventric les. I believe this is in his best interest to place an external ventricular drain. I discussed this with his over the phone and discussed with her risks, benefits, and alternative s, and I answered all of her questions. She did provide informed consent for placement of the ventri culostomy catheter. He was placed uneventfully and was hooked up to the Wyman drain. The procedure note will be dictated separately. We will start him on IV antibiotics while the drain is in place. The plan is to perform cerebral angiography tomorrow to further assess his intracerebral vasculature . I also discussed that with the and discussed with her risks, benefits, and alternatives, and she provided informed consent for that procedure as well.
--- NOTE | 2017-06-18 15:18 | OP ---
DATE OF SERVICE: 06/18/2017 PREOPERATIVE DIAGNOSES: Acute hydrocephalus and subarachnoid hemorrhage. POSTOPERATIVE DIAGNOSES: Acute hydrocephalus and subarachnoid hemorrhage. PROCEDURE: Right ventriculostomy drain placement. SURGEON: Teo Curry PA-C. DESCRIPTION OF PROCEDURE: Location of the incision was marked at the Radha's point in the right fro ntal scalp. The area around this location was prepped with Betadine and in sterile drape eye was margarita melvin over this location. At this point, 0.5% Xylocaine with epinephrine was administered in the subcu taneous tissues of the scalp at this incision site. A total of 3 mL was used. A 15 blade was used t o incise the scalp down to the periosteum medially underlying measuring roughly 1 cm. At this point, a cranial twist drill was used to drill through the calvarium. The dura was identified and incised using a blunt instrument. A ventricular catheter was placed at a depth of 6 cm with immediate egress of significant amount of serosanguineous CSF. This was attached to the Wyman drain set at 10 cm of water. The incision was closed with 3-0 Ethilon and the drain was adhered using a 2-0 silk suture. Dressing was applied over the incision site. The patient tolerated the procedure very well. Steril e technique was exercised throughout the duration.
[2017-06-18] MEDS: Lisinopril 20 MG TAB PO SCH (20:45)
[2017-06-18] MEDS ORDERED: cloNIDine 0.1 MG TAB PER TUBE SCH (23:30)
[2017-06-19] MEDS: niMODipine 30 MG CAP PO SCH ×6 (00:31→20:25)
[2017-06-19] MEDS: Labetalol HCl 100 MG/20 ML VIAL SLOW IVP PRN ×2 (01:51→12:53)
[2017-06-19] MEDS: hydrALAZINE 20 MG/ML VIAL SLOW IVP PRN ×2 (01:59→20:26)
[2017-06-19] MEDS: Morphine 4 MG/ML VIAL SLOW IVP PRN ×4 (02:03→20:27)
[2017-06-19] MEDS: Piperacillin/Tazobactam 3.375 GM in Sodium Chloride 0.9% 100 ML IVPB SCH ×4 (02:10→20:29)
[2017-06-19] MEDS: Esmolol 2,500 MG/250 ML 250 ML IVPB SCH ×9 (03:05→22:43)
[2017-06-19] MEDS: CEFAZOLIN/Water 2 GM/20 ML SYRINGE SLOW IVP SCH ×3 (05:00→22:48)
[2017-06-19 06:31] LABS: Actual Bicarbonate (HCO3a) 22.5 mEq/L (22-26); CO2 Tension 37.4 mmHg (35.0-45.0); Calcium, Ionized 1.3 mmol/L (1.12-1.30); Hemoglobin (Hb) 11.4 g/dL (14.0-18.0); O2 Tension (PaO2) 103.3 mmHg (80.0-100.0); Puncture Site LR
[2017-06-19] MEDS: Propofol 1,000 MG/100 ML VIAL IV PRN ×4 (07:19→22:44)
[2017-06-19] MEDS ORDERED: Potassium Chloride 20 MEQ TAB PER TUBE SCH (07:45)
[2017-06-19] MEDS: Lisinopril 20 MG TAB PO SCH ×2 (08:01→20:25)
[2017-06-19] MEDS: Pantoprazole 40 MG VIAL IVP SCH (08:02)
--- NOTE | 2017-06-19 08:14 | RAD ---
SINGLE VIEW CHEST: Date: 06/19/17 COMPARISON: 06/18/17. HISTORY: Ventilated patient with respiratory failure. FINDINGS: Single view of chest shows normal sized cardiomediastinal silhouette. Endotracheal tube and NG tube a re unchanged in position. No evidence of consolidation, mass, or pleural effusion. IMPRESSION: Stable exam. POS: [facility]
--- NOTE | 2017-06-19 08:28 | PRG ---
DATE OF SERVICE: 06/19/2017 Thirty-five minutes critical care time. Mr. Hassan remains intubated on mechanical ventilation. He has a ventriculostomy in place. He johnny l thrash around when sedation is lightened, but generally will not follow commands. PHYSICAL EXAMINATION: VITAL SIGNS: On exam, his temperature 99.6 with a T-max of 99.7, pulse 79, blood pressure 154/96. A 24-hour intake 6356 and output 4433. NEUROLOGICAL: He has a ventriculostomy in place. He will not follow any commands for me. Pupils ar e sluggishly reactive. 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 HEENT, otherwise, unremarkable. NECK: No JVD. LUNGS: Clear without wheezing or rhonchi. CARDIOVASCULAR: S1 and S2 regular, currently on esmolol drip. ABDOMEN: Soft, nontender, nondistended. EXTREMITIES: No clubbing, cyanosis, or edema. LABORATORY DATA: No new labs were collected today. Blood gas pH 7.40, pCO2 of 37, pO2 of 103, the p otassium level was 3.1 on the blood gas. Sodium was 146. Chest x-ray demonstrates no effusion or in filtrate. ASSESSMENT: 1. Subarachnoid hemorrhage. 2. Myocardial infarction. 3. Acute respiratory failure, requiring mechanical ventilation. 4. Mild hypokalemia. 5. Hypertension. PLAN: Need to discuss with Neurosurgery and the patient's family. My thinking is if they wish to co ntinue aggressively, then we need to place an early tracheostomy and feeding tube as recovery time is anticipated to be very prolonged. I will go ahead and reorder his labs for tomorrow. Replace raulito christina today.
--- NOTE | 2017-06-19 09:28 | PRG ---
DATE OF SERVICE: 06/18/2017 SUBJECTIVE: Mr. Marcos Hassan remains intubated on the vent, sedated. OBJECTIVE: VITAL SIGNS: Blood pressure 164/87, respiration 22, sats are 100%, temperature 98. HEENT: Pupils equal. NEUROLOGICAL: He is sedated. CHEST: Reveals rhonchi bilaterally. CARDIAC: Sinus tachycardia. ABDOMEN: Soft. EXTREMITY: No edema. LABORATORY DATA AND X-RAY FINDINGS: White count 10,000, hemoglobin and hematocrit is 12 and 39, plat elet count 145. PO2 63, PCO2 32, pH 7.46, rate of 14, 40%, 550 tidal volume. He has got gross pus c oming out of his endotracheal tube. Cultures so far negative. His x-ray taken today shows bilateral infiltrates, left greater than right. IMPRESSION: Status post subarachnoid hemorrhage, hypertension, retained secretions, possible aspirat ion pneumonia, myocardial infarction. PLAN: He is not weanable at this stage. Continue nimodipine, Zosyn, neb treatments, nutrition, PT. One-half hour critical care time.
--- NOTE | 2017-06-19 11:55 | CT ---
NONCONTRAST HEAD CT: Date: 06/19/17 HISTORY: Follow-up intracranial hemorrhage. COMPARISON: 06/18/17. TECHNIQUE: Noncontrast head CT is performed from skull base to skull vertex. FINDINGS: Interval placement of a STAFF AUDITOR shunt catheter via the right frontal approach. Distal tip of the catheter is in the frontal horn of the right lateral ventricle. The ventricular system has slightly decreased in size. There is persistent intraventricular hemorrhage. There is also hemorrhage involving the righ t and left subarachnoid spaces. The degree of subarachnoid blood has not progressed. There is mild lo ss of cortical alanis-white matter differentiation, worrisome for possible areas of ischemia/infarction . Stable hypodensities in the right frontal lobe. Calvarium is intact. Adequate aeration of the sinus es and mastoid air cells. IMPRESSION: 1. Redemonstration of intracranial hemorrhage involving the ventricular system and subarachnoid spac es. 2. Interval placement of STAFF AUDITOR shunt catheter via the right frontal approach. Ventricular system is sli ghtly decreased in size. 3. Patchy areas of loss of alanis-white matter differentiation. Component of parenchymal infarction ca nnot be excluded. POS: [facility]
--- NOTE | 2017-06-19 12:22 | PRG ---
DATE OF SERVICE: 06/18/2017 Mr. Hassan is on the fourth day of hospital place him on 0730 this morning. Mr. Hassan is on the fourth day of his hospital admission for subarachnoid hemorrhage and overnight has started to develop refractory hypertension and is now tachycardic, it runs to 120 beats per minute. This is stephen pite attempts at maxing out and nicardipine drip, hydralazine sedation with propofol. We will also t ry labetalol this morning. This very likely could be as a result of increased intracranial pressure from continued evolution of hydrocephalus. We will check a stat CT scan this morning and then perhap s place an external ventricular drain depending on his results. Teo Curry PA-C dictating for Dr. Johnson.
--- NOTE | 2017-06-19 14:25 | PDOC.PN ---
- Subjective Encounter Start Date: 06/19/17 Encounter Start Time: 14:25 Patient seen and examined, family at bedside, all questions answered. - Objective Vital Signs & Weight: Vital Signs (12 hours) Temp Pulse Pulse Pulse Resp BP BP 06/19/17 12:53 74 153/96 H 06/19/17 11:13 71 72 147/96 H 06/19/17 10:23 65 153/92 H 06/19/17 10:00 14 06/19/17 08:01 178/104 H 06/19/17 08:00 98.5 F 74 14 06/19/17 06:52 73 147/95 H 06/19/17 06:00 14 06/19/17 04:00 99.6 F 20 06/19/17 02:31 83 165/85 H BP Pulse Ox Pulse Ox Pulse Ox 06/19/17 12:53 06/19/17 11:13 154/95 H 100 100 06/19/17 10:23 06/19/17 10:00 06/19/17 08:01 06/19/17 08:00 100 06/19/17 06:52 06/19/17 06:00 06/19/17 04:00 06/19/17 02:31 Weight Admit Weight 234 lb 7.437 oz Weight 241 lb 10.026 oz Most Recent Monitor Data Heart Rate from ECG 72 NIBP 153/97 NIBP BP-Mean 122 Respiration from ECG 19 SpO2 100 I&O: 06/18/17 06/19/17 06/20/17 06:59 06:59 06:59 Intake Total 6023 6356 Output Total 4080 4433 Balance 1943 3 Result Diagrams: 06/18/17 04:27 06/18/17 04:27 Phys Exam - Physical Examination Constitutional: NAD HEENT: PERRLA, sclera anicteric +ET tube Respiratory: no wheezing, no rales, no rhonchi Cardiovascular: RRR, no significant murmur, no rub Gastrointestinal: soft, non-tender, no distention Musculoskeletal: pulses present, edema present (trace) Dx/Plan (1) Acute hypoxemic respiratory failure Code(s): J96.01 - ACUTE RESPIRATORY FAILURE WITH HYPOXIA Status: Acute (2) Aspiration pneumonia Code(s): J69.0 - PNEUMONITIS DUE TO INHALATION OF FOOD AND VOMIT Status: Acute (3) NSTEMI (non-ST elevated myocardial infarction) Code(s): I21.4 - NON-ST ELEVATION (NSTEMI) MYOCARDIAL INFARCTION Status: Acute Comment: conservative management per cardiology (4) SAH (subarachnoid hemorrhage) Code(s): I60.9 - NONTRAUMATIC SUBARACHNOID HEMORRHAGE, UNSPECIFIED Status: Acute (5) HTN (hypertension) Code(s): I10 - ESSENTIAL (PRIMARY) HYPERTENSION Status: Chronic - Plan * possible contrast study to be done, will monitor for any renal dysfunction post study if done * patient clinically stable for now * vent managment per pulmonary * vital signs stable * continue current plan of care * case and plan d/w patient's family at length, they understand and agree with this margarita
--- NOTE | 2017-06-19 15:47 | EKG ---
Test Reason : Blood Pressure : / mmHG Vent. Rate : 076 BPM Atrial Rate : 078 BPM P-R Int : 000 ms QRS Dur : 090 ms QT Int : 448 ms P-R-T Axes : 000 039 015 degrees QTc Int : 504 ms Atrial fibrillation with a competing junctional pacemaker Voltage criteria for left ventricular hypertrophy Prolonged QT Abnormal ECG Confirmed by PEPPER BAILEY M.D. ([id number]), editorial director GREGORIA ALFRED ([id number] on 06/19/2017 3:46:29 PM Referred By: Confirmed By:PEPPER BAILEY M.D.
--- NOTE | 2017-06-19 18:23 | PRG ---
DATE OF SERVICE: 06/19/2017 SUBJECTIVE: Mr. Hassan's status is unchanged. He did have a ventriculostomy placed over the weeke nd. OBJECTIVE: VITAL SIGNS: Blood pressure 147/95, heart rate 77, temperature 99.8. NEUROLOGIC: He is currently on propofol. Neuro status difficult to assess. LUNGS: Clear to auscultation. HEART: Regular rate and rhythm. ABDOMEN: Soft, nontender, nondistended. EXTREMITIES: No edema. PERTINENT LABORATORY DATA: Hemoglobin 12.5. Potassium 3.1. IMPRESSION: 1. Intracerebral hemorrhage. 2. ST-elevation myocardial infarction. RECOMMENDATIONS: Options appear limited for Mr. Hassan. At this point, CV status appears stable. Main issue is his neurologic status. At this point, I have no further CV recommendations. If there are any significant changes in his status, I will be happy to reassess.
[2017-06-20] MEDS: Esmolol 2,500 MG/250 ML 250 ML IVPB SCH ×4 (00:38→07:17)
[2017-06-20] MEDS: niMODipine 30 MG CAP PO SCH ×6 (00:38→20:12)
[2017-06-20] MEDS: Piperacillin/Tazobactam 3.375 GM in Sodium Chloride 0.9% 100 ML IVPB SCH (02:21)
[2017-06-20] MEDS: Morphine 4 MG/ML VIAL SLOW IVP PRN ×3 (03:35→20:11)
[2017-06-20 03:55] LABS: #Eosinphils 0.3 thou/uL (0.0-0.7); #Lymphocytes 1.5 thou/uL (1.20-3.40); #Monocytes 0.9 thou/uL (0.11-0.59); #Neutrophils 5.4 thou/uL (1.40-6.50); %Basophils 0.2 % (0.0-1.0); %Eosinophils 3.3 % (0.0-10.0); %Lymphocytes 18.2 % (21.0-51.0); %Monocytes 11.3 % (0.0-10.0); %Neutrophils 66.9 % (42.0-75.0); Hemoglobin 11.9 g/dL (14.0-18.0); Mean Corpuscular HGB CONC 33.3 g/dL (32.0-36.0); Mean Corpuscular Hemoglobin 32.2 pg (27.0-31.0); Mean Corpuscular Volume 96.6 fl (80.0-94.0); Mean Platelet Volume 8.9 fL (7.4-10.4); Platelet Count 187 thou/uL (130-400); RBC Distribution Width 14.3 % (11.5-14.5); White Blood Cell (WBC) Count 8.1 thou/uL (4.8-10.8)
[2017-06-20 04:13] LABS: Anion Gap 8 mmol/L (10-20); BUN (Urea Nitrogen) 24 mg/dL (8.9-20.6); Calc. Creatinine Clearance 154 mL/min (70-130); Carbon Dioxide 25 mmol/L (22-29); Chloride 112 mmol/L (98-107); Estimated GFR-MDRD Greater than 90; Glucose 107 mg/dL (70-105); Potassium 3.8 mmol/L (3.5-5.1); Sodium 141 mmol/L (136-145)
[2017-06-20] MEDS: CEFAZOLIN/Water 2 GM/20 ML SYRINGE SLOW IVP SCH ×3 (05:39→22:13)
[2017-06-20] MEDS: hydrALAZINE 20 MG/ML VIAL SLOW IVP PRN ×3 (06:20→23:02)
[2017-06-20 07:27] LABS: CO2 Tension 31.3 mmHg (35.0-45.0); O2 Tension (PaO2) 70.9 mmHg (80.0-100.0); pH, Arterial 7.44 (7.35-7.45)
[2017-06-20 07:28] LABS: ALV-art Gradient 102.375 (0-20); Actual Bicarbonate (HCO3a) 20.9 mEq/L (22-26); Base Excess (BEa) -2.4 mEq/L (0 (+/-) 2.5); Calcium, Ionized 1.2 mmol/L (1.12-1.30); Hematocrit-ABG 37.9 % (42.0-52.0); Hemoglobin (Hb) 12.3 g/dL (14.0-18.0); Puncture Site RR
--- NOTE | 2017-06-20 08:16 | RAD ---
SINGLE VIEW OF THE CHEST: Comparison: 06-19-17 History: Ventilated patient with respiratory failure. FINDINGS: Single view of the chest shows a normal sized cardiomediastinal silhouette. The endotracheal tube and nasogastric tube are unchanged in position. There is no evidence of consolidation, mass, or pleural effusion. IMPRESSION: No evidence of acute cardiopulmonary disease. POS: [facility]
[2017-06-20] MEDS ORDERED: niCARdipine 40MG In NaCl 40 MG/200 ML BAG IVPB SCH (08:30)
[2017-06-20] MEDS: Lisinopril 20 MG TAB PO SCH ×2 (09:01→20:12)
[2017-06-20] MEDS: Pantoprazole 40 MG VIAL IVP SCH (09:01)
--- NOTE | 2017-06-20 09:04 | PRG ---
DATE OF SERVICE: 06/20/2017 The patient is about the same as yesterday. PHYSICAL EXAMINATION: VITAL SIGNS: Temperature is 98.5, pulse 62, blood pressure 167/100, currently on esmolol drip which is beyond maximum dose. Total intake for 24 hours 4411, output 2926. HEENT: Pupils 2 mm, sluggishly reactive. Sclerae icteric. Oropharynx: ET tube in place. NECK: No JVD. LUNGS: Clear without rhonchi or wheezing. CARDIAC: S1 and S2 regular. ABDOMEN: Soft. EXTREMITIES: No edema. LABORATORY DATA: White blood cell count 8.1, hematocrit 35.7, platelet count 187, pH 7.44, pCO2 31, pO2 of 71 on SIMV rate 14, tidal volume 550, PEEP 5, pressure support 10, FiO2 30%. Sodium 141, potassium 3.8, chloride 112, CO2 25 , BUN 24, creatinine 0.9, glucose 107. ASSESSMENT: 1. Subarachnoid hemorrhage. 2. Encephalopathy. 3. Acute myocardial infarction. 4. Acute respiratory failure requiring mechanical ventilation. 5. Hypertension. PLAN: 1. Switch to a Cardene drip. 2. I am expecting a cerebral angiogram to be done later today. The patient is n.p.o. for that. 3. Discussed with the patient's about performing an early tracheostomy and PEG tube given the anticipated prolonged recovery time. She says she would get back to me on that. 4. Stop daily blood gases as we are not having to adjust the ventilator. 5. Stop daily chest x-rays for the same reason. 30 min cc time MTDD
[2017-06-20] MEDS: Propofol 1,000 MG/100 ML VIAL IV PRN ×2 (09:11→15:58)
[2017-06-20] MEDS: niCARdipine HCl 50 MG in Sodium Chloride 0.9% 250 ML 230 ML IVPB SCH ×5 (09:23→22:12)
[2017-06-20] MEDS ORDERED: Heparin 10,000 UNITS/1 ML VIAL ONE ×2 (11:08→11:17)
[2017-06-20] MEDS ORDERED: Lidocaine 1% (PF) 30 ML VIAL ONE (11:08)
--- NOTE | 2017-06-20 14:08 | PDOC.PN ---
- Subjective Encounter Start Date: 06/20/17 Encounter Start Time: 14:00 Subjective: Patient just back from Cerebral angiogram. Still sleeping and non- verbal. -: No vent. Angiogram reportedly negative. - Objective MAR Reviewed: Yes Vital Signs & Weight: Vital Signs (12 hours) Temp Pulse Resp BP Pulse Ox 06/20/17 12:00 99.0 F 14 06/20/17 11:23 82 152/96 H 06/20/17 10:00 17 06/20/17 09:01 171/88 H 06/20/17 08:00 98.9 F 78 14 94 L 06/20/17 07:39 14 06/20/17 07:17 67 172/97 H 06/20/17 07:00 98.5 F 06/20/17 06:20 71 149/100 H 06/20/17 06:00 14 06/20/17 04:00 14 06/20/17 03:00 99.8 F H 06/20/17 02:29 71 148/97 H Weight Admit Weight 234 lb 7.437 oz Weight 246 lb 4.101 oz Most Recent Monitor Data Heart Rate from ECG 83 NIBP 166/87 NIBP BP-Mean 107 Respiration from ECG 17 SpO2 96 I&O: 06/19/17 06/20/17 06/21/17 06:59 06:59 06:59 Intake Total 6356 4411 0 Output Total 4433 2926 356 Balance 1923 1485 -356 Result Diagrams: 06/20/17 03:40 06/20/17 03:40 Phys Exam - Physical Examination Constitutional: NAD HEENT: moist MMs Respiratory: no wheezing, no rales, no rhonchi Cardiovascular: RRR, no significant murmur Gastrointestinal: positive bowel sounds Musculoskeletal: no edema Deviation from normal: sedated on vent Dx/Plan (1) SAH (subarachnoid hemorrhage) Code(s): I60.9 - NONTRAUMATIC SUBARACHNOID HEMORRHAGE, UNSPECIFIED Status: Acute (2) Acute hypoxemic respiratory failure Code(s): J96.01 - ACUTE RESPIRATORY FAILURE WITH HYPOXIA Status: Acute (3) Aspiration pneumonia Code(s): J69.0 - PNEUMONITIS DUE TO INHALATION OF FOOD AND VOMIT Status: Acute (4) NSTEMI (non-ST elevated myocardial infarction) Code(s): I21.4 - NON-ST ELEVATION (NSTEMI) MYOCARDIAL INFARCTION Status: Acute Comment: conservative management per cardiology (5) HTN (hypertension) Code(s): I10 - ESSENTIAL (PRIMARY) HYPERTENSION Status: Chronic - Plan cont current plan of care, PT/OT, respiratory therapy Angiogram done today -: Will likely need PEG and trach per pulmonology note. * . - Discharge Day Encounter end time: 14:15
[2017-06-20] MEDS: cloNIDine 0.1 MG TAB PO PRN (20:13)
[2017-06-21] MEDS: niMODipine 30 MG CAP PO SCH ×3 (00:17→08:34)
[2017-06-21] MEDS: cloNIDine 0.1 MG TAB PO PRN ×3 (00:17→09:51)
[2017-06-21] MEDS: Morphine 4 MG/ML VIAL SLOW IVP PRN ×4 (00:50→18:27)
[2017-06-21] MEDS: Labetalol HCl 100 MG/20 ML VIAL SLOW IVP PRN ×5 (02:20→23:48)
[2017-06-21] MEDS: niCARdipine HCl 50 MG in Sodium Chloride 0.9% 250 ML 230 ML IVPB SCH ×7 (02:37→23:48)
[2017-06-21 04:17] LABS: #Basophils 0.1 thou/uL (0.0-0.2); #Eosinphils 0.1 thou/uL (0.0-0.7); #Lymphocytes 1.2 thou/uL (1.20-3.40); #Monocytes 1.3 thou/uL (0.11-0.59); %Basophils 0.8 % (0.0-1.0); %Eosinophils 1.6 % (0.0-10.0); %Lymphocytes 14.2 % (21.0-51.0); %Monocytes 14.5 % (0.0-10.0); %Neutrophils 68.9 % (42.0-75.0); Hemoglobin 12.1 g/dL (14.0-18.0); Mean Corpuscular HGB CONC 33.4 g/dL (32.0-36.0); Mean Corpuscular Volume 95.8 fl (80.0-94.0); Mean Platelet Volume 8.7 fL (7.4-10.4); Platelet Count 247 thou/uL (130-400); RBC Distribution Width 14.3 % (11.5-14.5); Red Blood Cell (RBC) Count 3.79 mill/uL (4.70-6.10); White Blood Cell (WBC) Count 8.7 thou/uL (4.8-10.8)
[2017-06-21 04:36] LABS: Anion Gap 7 mmol/L (10-20); BUN (Urea Nitrogen) 26 mg/dL (8.9-20.6); Calc. Creatinine Clearance 185 mL/min (70-130); Calcium 8.8 mg/dL (7.8-10.44); Carbon Dioxide 24 mmol/L (22-29); Chloride 114 mmol/L (98-107); Estimated GFR-MDRD Greater than 90; Glucose 123 mg/dL (70-105); Potassium 3.3 mmol/L (3.5-5.1); Sodium 142 mmol/L (136-145)
[2017-06-21] MEDS: CEFAZOLIN/Water 2 GM/20 ML SYRINGE SLOW IVP SCH ×3 (05:30→21:49)
[2017-06-21 06:49] LABS: Actual Bicarbonate (HCO3a) 20.5 mEq/L (22-26); Base Excess (BEa) -1.9 mEq/L (0 (+/-) 2.5); CO2 Tension 27.9 mmHg (35.0-45.0); Hematocrit-ABG 35.9 % (42.0-52.0); Hemoglobin (Hb) 12.3 g/dL (14.0-18.0); O2 Tension (PaO2) 78.2 mmHg (80.0-100.0); pH, Arterial 7.48 (7.35-7.45)
[2017-06-21 06:50] LABS: ALV-art Gradient 100.825 (0-20); Puncture Site RRA
--- NOTE | 2017-06-21 08:08 | PRG ---
DATE OF SERVICE: 06/21/2017 Thirty-five minutes critical care time. The patient remains intubated on mechanical ventilation. His sedation has been off since 8:00 p.m. l ast night. He will look with his eyes, it is hard to tell if he is following, the best I can get him do neurologically is perhaps trying to squeeze with his left thumb. He will withdraw to pain in all extremities according to the nursing staff. PHYSICAL EXAMINATION: VITAL SIGNS: Temperature is 100.2, pulse 93, blood pressure 156/91. 24 hour intake 3319, output 401 6. HEENT: Otherwise, unremarkable. NECK: No JVD. LUNGS: Clear without wheezing or rhonchi. CARDIOVASCULAR: S1, S2 regular. ABDOMEN: Soft. EXTREMITIES: No edema. LABORATORY DATA: White blood cell count 8.7, hematocrit 36.3, platelet count 247, pH 7.48, pCO2 27, pO2 of 78 on SIMV rate 14, tidal 550, PEEP 5, pressure support 10, FiO2 30%. Sodium 142, potassium 3 .3, chloride 114, CO2 24, BUN 26, creatinine 0.7, glucose 123. ASSESSMENT: 1. Subarachnoid hemorrhage. 2. Encephalopathy. 3. Acute myocardial infarction. 4. Acute respiratory failure requiring mechanical ventilation. 5. Hypertension. PLAN: 1. Add metoprolol. 2. Continue Cardene. 3. Begin weaning respiratory rate on vent. I spoke with the family 2 days ago about putting a tracheostomy and feeding tube in as I anticipate r ecovery being prolonged. They wanted to think about it for a while and get back to me. We will proc eed when they are ready.
[2017-06-21] MEDS: Lisinopril 20 MG TAB PO SCH ×2 (08:34→19:43)
[2017-06-21] MEDS: Metoprolol Tartrate 25 MG TAB PER TUBE SCH ×2 (08:34→19:42)
[2017-06-21] MEDS: Pantoprazole 40 MG VIAL IVP SCH (08:34)
[2017-06-21] MEDS ORDERED: Iopamidol 370 76% 100 ML VIAL ONE (08:49)
--- NOTE | 2017-06-21 09:16 | PDOC.PN ---
- Subjective Encounter Start Date: 06/21/17 Encounter Start Time: 12:30 Subjective: No changes overnight. Remains on vent, off sedation but not responding much - Objective MAR Reviewed: Yes Vital Signs & Weight: Vital Signs (12 hours) Temp Pulse Resp BP Pulse Ox 06/21/17 08:34 164/90 H 06/21/17 08:00 16 06/21/17 07:00 100.2 F H 06/21/17 06:31 88 152/86 H 06/21/17 06:30 87 19 99 06/21/17 06:00 17 06/21/17 05:31 80 147/78 H 06/21/17 04:36 159/88 H 06/21/17 04:31 83 159/98 H 06/21/17 04:00 21 H 06/21/17 03:34 83 154/83 H 06/21/17 03:00 99.2 F 06/21/17 02:32 83 171/91 H 06/21/17 02:20 99 177/90 H 06/21/17 02:00 22 H 06/21/17 00:17 142/82 H 06/21/17 00:00 21 H 06/20/17 23:02 94 161/81 H 06/20/17 23:00 98.9 F 06/20/17 22:00 19 06/20/17 21:39 94 149/79 H Weight Admit Weight 234 lb 7.437 oz Weight 249 lb 1.957 oz Most Recent Monitor Data Heart Rate from ECG 97 NIBP 169/88 NIBP BP-Mean 108 Respiration from ECG 16 SpO2 100 I&O: 06/20/17 06/21/17 06/22/17 06:59 06:59 06:59 Intake Total 4411 3319 Output Total 7729 0664 410 Balance 1485 -697 -410 Result Diagrams: 06/21/17 03:45 06/21/17 03:45 Phys Exam - Physical Examination HEENT: moist MMs Respiratory: no wheezing, no rales, no rhonchi Cardiovascular: RRR, no significant murmur Gastrointestinal: soft, positive bowel sounds will squeeze a bit with left hand to command, no other intentional movement Deviation from normal: on vent, not very responsive, though eyes open Dx/Plan (1) SAH (subarachnoid hemorrhage) Code(s): I60.9 - NONTRAUMATIC SUBARACHNOID HEMORRHAGE, UNSPECIFIED Status: Acute (2) Acute hypoxemic respiratory failure Code(s): J96.01 - ACUTE RESPIRATORY FAILURE WITH HYPOXIA Status: Acute (3) Aspiration pneumonia Code(s): J69.0 - PNEUMONITIS DUE TO INHALATION OF FOOD AND VOMIT Status: Acute (4) NSTEMI (non-ST elevated myocardial infarction) Code(s): I21.4 - NON-ST ELEVATION (NSTEMI) MYOCARDIAL INFARCTION Status: Acute Comment: conservative management per cardiology (5) HTN (hypertension) Code(s): I10 - ESSENTIAL (PRIMARY) HYPERTENSION Status: Chronic - Plan cont current plan of care Plan for PEG and Trach when family consents * . - Discharge Day Encounter end time: 12:45
[2017-06-21] MEDS: cloNIDine 0.2 MG TAB PO SCH ×2 (14:40→19:42)
[2017-06-21] MEDS: hydrALAZINE 20 MG/ML VIAL SLOW IVP PRN (17:05)
[2017-06-21] MEDS: Sodium Chloride 0.9% 1,000 ML IV SCH (20:16)
[2017-06-22] MEDS: hydrALAZINE 20 MG/ML VIAL SLOW IVP PRN (02:00)
[2017-06-22] MEDS: Morphine 4 MG/ML VIAL SLOW IVP PRN ×5 (04:00→23:55)
[2017-06-22] MEDS: Labetalol HCl 100 MG/20 ML VIAL SLOW IVP PRN ×2 (05:00→11:43)
[2017-06-22] MEDS: Potassium Chloride 20 MEQ TAB PO PRN (06:44)
[2017-06-22] MEDS: CEFAZOLIN/Water 2 GM/20 ML SYRINGE SLOW IVP SCH ×3 (06:52→21:02)
[2017-06-22] MEDS ORDERED: Metoprolol Tartrate 25 MG TAB PER TUBE SCH (07:56)
[2017-06-22 08:04] LABS: Hemoglobin 11.8 g/dL (14.0-18.0); Mean Corpuscular HGB CONC 33.1 g/dL (32.0-36.0); Mean Corpuscular Hemoglobin 32.2 pg (27.0-31.0); Mean Corpuscular Volume 97.4 fl (80.0-94.0); Mean Platelet Volume 8.8 fL (7.4-10.4); Platelet Count 295 thou/uL (130-400); RBC Distribution Width 14.6 % (11.5-14.5); Red Blood Cell (RBC) Count 3.67 mill/uL (4.70-6.10); White Blood Cell (WBC) Count 8.8 thou/uL (4.8-10.8)
[2017-06-22 08:13] LABS: Anion Gap 8 mmol/L (10-20); BUN (Urea Nitrogen) 26 mg/dL (8.9-20.6); Calc. Creatinine Clearance 203 mL/min (70-130); Calcium 9.2 mg/dL (7.8-10.44); Carbon Dioxide 25 mmol/L (22-29); Chloride 115 mmol/L (98-107); Estimated GFR-MDRD Greater than 90; Glucose 94 mg/dL (70-105); Potassium 3.4 mmol/L (3.5-5.1); Sodium 145 mmol/L (136-145)
--- NOTE | 2017-06-22 08:21 | PRG ---
DATE OF SERVICE: 06/22/2017 Thirty-five minutes critical care time. The patient is much more awake than yesterday. He will not nod or shake his head, but he did give me the thumbs up sign with his right arm and was able to move both feet. I cannot get him to move his left arm. PHYSICAL EXAMINATION: VITAL SIGNS: His temperature is 98.9 with a T-max of 99.8, pulse 98, blood pressure 150/83. He is c urrently on nicardipine drip at 15 mg per hour. 24 hour intake was 3547, output 4463. HEENT: Pupils are reactive. Sclerae icteric. Oropharynx dry. NECK: No JVD. LUNGS: Clear without wheezing or rhonchi. CARDIAC: S1 and S2 regular. ABDOMEN: Soft, nontender, hyperactive bowel sounds. EXTREMITIES: No edema. LABORATORY DATA: No labs were done today. ASSESSMENT: 1. Status post subarachnoid hemorrhage, likely from hypertension. 2. Difficult to control blood pressure requiring Cardene drip. 3. Respiratory failure requiring mechanical ventilation. PLAN: 1. Given his neurologic improvement, I think it would be okay to go ahead and try to manage him with out tracheostomy for the time being. I will give him to the end of the week and see if his neurologi c status continues to improve. I do not think he is quite there in terms of me having confidence in extubating him and have him maintain his airway. 2. Increase the dosages of his antihypertensive medications orally in hopes of getting him off the n icardipine drip.
[2017-06-22] MEDS: cloNIDine 0.2 MG TAB PO SCH ×3 (08:36→20:51)
[2017-06-22] MEDS: Metoprolol Tartrate 50 MG TAB PER TUBE SCH ×2 (08:36→20:51)
[2017-06-22] MEDS: Lisinopril 20 MG TAB PO SCH ×2 (08:37→20:51)
[2017-06-22] MEDS: Pantoprazole 40 MG VIAL IVP SCH (08:37)
[2017-06-22 08:48] LABS: Eosinophils 4 % (0-10); Lymphocytes 17 % (21-51); MDiff Complete? YES; Macrocytosis SLIGHT = 6-15 cells (100X) (0-5/hpf); Monocytes 16 % (0-10); Neutrophil 62 % (42-75); Reactive Lymphocytes 1 % (0-10)
[2017-06-22] MEDS: niCARdipine HCl 50 MG in Sodium Chloride 0.9% 250 ML 230 ML IVPB SCH ×4 (09:11→22:25)
[2017-06-22] MEDS ORDERED: Propofol BOLUS 1,000 MG/100 ML VIAL IV PRN (10:02)
[2017-06-22] MEDS ORDERED: Lorazepam 2 MG/ML VIAL SLOW IVP PRN (10:02)
[2017-06-22] MEDS ORDERED: Propofol 1,000 MG/100 ML VIAL IV PRN (10:02)
[2017-06-22] MEDS ORDERED: Fentanyl BOLUS 250 ML IVPB PRN (10:02)
--- NOTE | 2017-06-22 14:23 | PDOC.PN ---
- Subjective Encounter Start Date: 06/22/17 Encounter Start Time: 14:21 Subjective: more awake today. opens eyes & follows simple commands - Objective MAR Reviewed: Yes Vital Signs & Weight: Vital Signs (12 hours) Temp Pulse Pulse Pulse Resp BP BP 06/22/17 14:00 16 06/22/17 12:28 98 151/87 H 06/22/17 12:00 98.2 F 20 06/22/17 11:43 104 H 152/86 H 06/22/17 10:29 97 150/75 H 06/22/17 10:00 15 06/22/17 08:49 98 111 H 142/86 H 06/22/17 08:37 147/80 H 06/22/17 08:36 147/80 H 06/22/17 08:00 14 06/22/17 07:51 95 149/84 H 06/22/17 07:10 98.9 F 93 16 06/22/17 07:00 98.9 F 06/22/17 06:00 16 06/22/17 05:00 111 H 170/86 H 06/22/17 04:00 99.1 F 18 BP Pulse Ox Pulse Ox Pulse Ox 06/22/17 14:00 06/22/17 12:28 06/22/17 12:00 06/22/17 11:43 06/22/17 10:29 06/22/17 10:00 06/22/17 08:49 164/79 H 100 100 06/22/17 08:37 06/22/17 08:36 06/22/17 08:00 06/22/17 07:51 06/22/17 07:10 100 06/22/17 07:00 06/22/17 06:00 06/22/17 05:00 06/22/17 04:00 Weight Admit Weight 234 lb 7.437 oz Weight 249 lb Most Recent Monitor Data Heart Rate from ECG 100 NIBP 161/91 NIBP BP-Mean 111 Respiration from ECG 18 SpO2 100 I&O: 06/21/17 06/22/17 06/23/17 06:59 06:59 06:59 Intake Total 1085 2915 300 Output Total 1227 6859 9511 Balance -951 -286 -2001 Result Diagrams: 06/22/17 03:30 06/22/17 03:30 Phys Exam - Physical Examination Constitutional: NAD ETT, Awake and seems alert HEENT: PERRLA, moist MMs, sclera anicteric, oral pharynx no lesions ETT Neck: no JVD Respiratory: no wheezing, no rales, no rhonchi, clear to auscultation bilateral Cardiovascular: RRR, no significant murmur Gastrointestinal: soft, non-tender, no distention, positive bowel sounds Musculoskeletal: no edema, pulses present wiggles toes but can't move legs.squeezes w hands Skin: no rash Dx/Plan (1) SAH (subarachnoid hemorrhage) Code(s): I60.9 - NONTRAUMATIC SUBARACHNOID HEMORRHAGE, UNSPECIFIED Status: Acute Comment: s/p EVD per NS.Failed coiling attempt.on Empiric ABX (2) Acute hypoxemic respiratory failure Code(s): J96.01 - ACUTE RESPIRATORY FAILURE WITH HYPOXIA Status: Acute Comment: Remains Vent dependent (3) Uncontrolled hypertension Code(s): I10 - ESSENTIAL (PRIMARY) HYPERTENSION Status: Acute Comment: Remains on Cardene drip despite PO meds and prn anti hypertensives (4) NSTEMI (non-ST elevated myocardial infarction) Code(s): I21.4 - NON-ST ELEVATION (NSTEMI) MYOCARDIAL INFARCTION Status: Acute Comment: conservative management per cardiology (5) Aspiration pneumonia Code(s): J69.0 - PNEUMONITIS DUE TO INHALATION OF FOOD AND VOMIT Status: Acute (6) Metabolic acidosis Code(s): E87.2 - ACIDOSIS Status: Resolved (7) Lactic acid acidosis Code(s): E87.2 - ACIDOSIS Status: Resolved (8) HTN (hypertension) Code(s): I10 - ESSENTIAL (PRIMARY) HYPERTENSION Status: Chronic - Plan vásquez catheter, continue antibiotics, PT/OT, respiratory therapy, DVT proph w/ SCDs Cont vent support per PCCM. may need Trach/PEG.supportive care for latricia -: started on BB,Clonidine & Lisinopril.adjust based on BP response -: cont empiric ABx per NS.EVD in place.clinically stable. -: AM labs. cont TF. -: replace Potassium per CCU protocol and recheck * . Review of Systems - Review of Systems Other: can nopt be obtained due to ETT - Medications/Allergies Allergies/Adverse Reactions: Allergies Allergy/AdvReac Type Severity Reaction Status Date / Time ibuprofen Allergy Unverified 06/14/17 17:29 Medications: Current Medications Albuterol/Ipratropium (Duoneb) 3 ml NEB [id number] [place] Last Admin: 06/22/17 12:28 Dose: 3 ml Cefazolin Sodium (Ancef) 2 gm SLOW IVP Q8HR [place] Last Admin: 06/22/17 14:15 Dose: 2 gm Clonidine (Catapres) 0.1 mg PO Q4H PRN PRN Reason: SBP > 140 Last Admin: 06/21/17 09:51 Dose: 0.1 mg Clonidine (Catapres) 0.2 mg PO TID [place] Last Admin: 06/22/17 08:36 Dose: 0.2 mg Diphenhydramine HCl (Benadryl) 50 mg IVP Q6H PRN PRN Reason: Itching Hydralazine HCl (Apresoline) 20 mg SLOW IVP Q4H PRN PRN Reason: Hypertension Last Admin: 06/22/17 02:00 Dose: 20 mg Fentanyl Citrate 2,000 mcg/ (Sodium Chloride) 100 mls @ 0 mls/hr IV INF [place]; Per Protocol PRN Reason: Protocol Stop: 07/14/17 16:00 Potassium Chloride 40 meq/ (Sodium Chloride) 270 mls @ 135 mls/hr IVPB ASDIR PRN PRN Reason: FOR SERUM K+ 2.5 - 3.5 Potassium Chloride 40 meq/ (Device) 100 mls @ 50 mls/hr IVPB ASDIR PRN PRN Reason: FOR SERUM K+ 2.5 - 3.5 Magnesium Sulfate 1 gm/ Sodium (Chloride) 102 mls @ 102 mls/hr IV PRN PRN PRN Reason: MAG LEVEL 1.4 - 2.0 Magnesium Sulfate 2 gm/ Device 100 mls @ 100 mls/hr IVPB ASDIR PRN PRN Reason: MAGNESIUM < 1.4 Potassium Phosphate 9 mmol/ (Sodium Chloride) 103 mls @ 25.75 mls/hr IVPB ASDIR PRN PRN Reason: Phosphate 1.0-1.8 Potassium Phosphate 12 mmol/ (Sodium Chloride) 254 mls @ 63.5 mls/hr IV ASDIR PRN PRN Reason: Serum phosphate 0.5-0.9 Potassium Phosphate 15 mmol/ (Sodium Chloride) 255 mls @ 63.75 mls/hr IV ASDIR PRN PRN Reason: Serum Phos < 0.5 Nicardipine HCl 50 mg/ Sodium (Chloride) 250 mls @ 0 mls/hr IVPB INF [place]; Titrate PRN Reason: Protocol Last Admin: 06/22/17 14:14 Dose: 250 mls Fentanyl Citrate (Fentanyl Bolus) 250 mls @ 0 mls/hr IVPB PRN PRN; As Directed PRN Reason: Breakthrough pain/agitation Stop: 07/22/17 10:02 Labetalol HCl (Normodyne) 10 mg SLOW IVP Q10MIN PRN PRN Reason: SBP > 140, HR > 70 Last Admin: 06/22/17 11:43 Dose: 10 mg Lisinopril (Zestril) 20 mg PO BID [facility] Last Admin: 06/22/17 08:37 Dose: 20 mg Lorazepam (Ativan) 2 mg SLOW IVP Q2H PRN PRN Reason: Anxiety to achieve Quesada 2-3 Stop: 07/14/17 16:00 Last Admin: 06/18/17 04:37 Dose: 2 mg Lorazepam (Ativan) 2 mg SLOW IVP Q1H PRN PRN Reason: Breakthrough agitation Stop: 07/22/17 10:02 Magnesium Oxide (Magnesium Oxide) 400 mg PO BIDPRN PRN PRN Reason: FOR SERUM MAG 1.4 - 2.0 Magnesium Oxide (Magnesium Oxide) 800 mg PO PRN PRN PRN Reason: FOR SERUM MAG < 1.4 Metoprolol Tartrate (Lopressor) 50 mg PER TUBE BID [facility] Last Admin: 06/22/17 08:36 Dose: 50 mg Miscellaneous Medication (Phos-Nak) 1 pkt PO TIDPRN PRN PRN Reason: FOR PHOS LEVEL 1.0 - 1.8 Miscellaneous Medication (Phos-Nak) 2 pkt PO TIDPRN PRN PRN Reason: FOR PHOS LEVEL 0.5 - 1.0 Morphine Sulfate (Morphine) 2 mg SLOW IVP Q1H PRN PRN Reason: breakthrough pain/agitation Stop: 07/22/17 10:02 Last Admin: 06/22/17 13:09 Dose: 2 mg Pantoprazole Sodium (Protonix) 40 mg IVP DAILY [facility] Last Admin: 06/22/17 08:37 Dose: 40 mg Potassium Chloride (K-Dur) 40 meq PO ASDIR PRN PRN Reason: FOR SERUM K+ 2.5 - 3.5 Last Admin: 06/22/17 06:44 Dose: 40 meq Potassium Chloride (Klor-Con) 40 meq PER TUBE ASDIR PRN PRN Reason: FOR SERUM K+ 2.5-3.5 Last Admin: 06/21/17 05:16 Dose: 40 meq Promethazine HCl (Phenergan) 25 mg IM Q4H PRN PRN Reason: Nausea/Vomiting Propofol (Diprivan) 1,000 mg IV INF PRN; Protocol PRN Reason: TO ACHIEVE QUESADA SCORE 2-3 Stop: 07/14/17 16:00 Last Admin: 06/20/17 15:58 Dose: 1,000 mg Propofol (Diprivan) 1,000 mg IV INF PRN; Protocol PRN Reason: TO ACHIEVE GOAL RASS Stop: 07/22/17 10:02 Propofol (Diprivan Bolus) 20 mg IV Q5MIN PRN PRN Reason: BREAKTHROUGH AGITATION Stop: 07/22/17 10:02 Sodium Chloride (Flush - Normal Saline) 10 ml IVF Q12HR [facility] Last Admin: 06/22/17 08:36 Dose: 10 ml Sodium Chloride (Flush - Normal Saline) 10 ml IVF PRN PRN PRN Reason: Saline Flush Sodium Chloride (Flush - Normal Saline) 10 ml IV DAILY [facility] Last Admin: 06/22/17 08:36 Dose: 10 ml
[2017-06-23] MEDS: CEFAZOLIN/Water 2 GM/20 ML SYRINGE SLOW IVP SCH ×3 (05:34→21:13)
[2017-06-23 06:48] LABS: #Eosinphils 0.3 thou/uL (0.0-0.7); #Lymphocytes 1.4 thou/uL (1.20-3.40); #Monocytes 1.2 thou/uL (0.11-0.59); #Neutrophils 6.8 thou/uL (1.40-6.50); %Basophils 0.5 % (0.0-1.0); %Lymphocytes 13.9 % (21.0-51.0); %Monocytes 12.4 % (0.0-10.0); %Neutrophils 70.2 % (42.0-75.0); Hemoglobin 11.9 g/dL (14.0-18.0); Mean Corpuscular HGB CONC 33.3 g/dL (32.0-36.0); Mean Corpuscular Hemoglobin 32.2 pg (27.0-31.0); Mean Corpuscular Volume 96.9 fl (80.0-94.0); Mean Platelet Volume 7.7 fL (7.4-10.4); Platelet Count 320 thou/uL (130-400); RBC Distribution Width 14.7 % (11.5-14.5); Red Blood Cell (RBC) Count 3.69 mill/uL (4.70-6.10); White Blood Cell (WBC) Count 9.7 thou/uL (4.8-10.8)
[2017-06-23 07:06] LABS: Anion Gap 9 mmol/L (10-20); BUN (Urea Nitrogen) 24 mg/dL (8.9-20.6); Calc. Creatinine Clearance 176 mL/min (70-130); Calcium 9.4 mg/dL (7.8-10.44); Carbon Dioxide 27 mmol/L (22-29); Chloride 113 mmol/L (98-107); Estimated GFR-MDRD Greater than 90; Glucose 116 mg/dL (70-105); Potassium 3.5 mmol/L (3.5-5.1); Sodium 145 mmol/L (136-145)
[2017-06-23] MEDS ORDERED: DC Sedation Protocol FS ONE (07:37)
--- NOTE | 2017-06-23 07:55 | PRG ---
DATE OF SERVICE: 06/23/2012 Thirty-five minutes critical care time. The patient remains intubated today. He fully follows commands, moves arms and legs without any diff iculty. Nods to questions. PHYSICAL EXAMINATION: VITAL SIGNS: Temperature 98.7, pulse 83, blood pressure 156/101. 24 hour intake 3437, output 5297, weight 242 pounds. HEENT: Unremarkable. NECK: No JVD. CHEST: Clear. CARDIAC: S1 and S2 regular, 3/6 systolic murmur. ABDOMEN: Soft, nontender. EXTREMITIES: No edema. LABORATORY DATA: White blood cell count 9.7, hematocrit 35.8, platelet count 320. Sodium 145, potas sium 3.5, chloride 113, CO2 27, BUN 24, creatinine 0.8, glucose 116. ASSESSMENT: 1. Subarachnoid hemorrhage. 2. Malignant hypertension. 3. Acute respiratory failure requiring mechanical ventilation. PLAN: I believe the patient has improved to the point where we can extubate and observe. Continue t he Cardene drip until we are confident he can swallow meds. I will ask PT and Speech therapy to see t he patient. He is on cefazolin for prophylaxis given that he has an intraventricular drain in place.
[2017-06-23] MEDS: cloNIDine 0.2 MG TAB PO SCH ×3 (08:27→20:21)
[2017-06-23] MEDS: Metoprolol Tartrate 50 MG TAB PER TUBE SCH (08:28)
[2017-06-23] MEDS: Lisinopril 20 MG TAB PO SCH (08:28)
[2017-06-23] MEDS: Pantoprazole 40 MG VIAL IVP SCH (08:28)
[2017-06-23] MEDS: niCARdipine HCl 50 MG in Sodium Chloride 0.9% 250 ML 230 ML IVPB SCH ×3 (09:23→23:35)
[2017-06-23] MEDS ORDERED: Metoprolol Tartrate 50 MG TAB PO SCH (11:45)
[2017-06-23] MEDS: hydrALAZINE 20 MG/ML VIAL SLOW IVP PRN (14:08)
--- NOTE | 2017-06-23 15:25 | PDOC.PN ---
- Subjective Encounter Start Date: 06/23/17 Encounter Start Time: 15:24 Subjective: extubated this morning and doing very well -: awake and alert .answers Qs and follows commands -: BP still high per nursing - Objective MAR Reviewed: Yes Vital Signs & Weight: Vital Signs (12 hours) Temp Pulse Pulse Pulse Resp BP BP 06/23/17 14:44 153/93 H 06/23/17 14:08 89 172/98 H 06/23/17 12:00 98.6 F 06/23/17 10:50 82 87 148/103 H 06/23/17 09:29 88 19 06/23/17 08:28 188/113 H 06/23/17 08:27 188/112 H 06/23/17 07:45 100 16 06/23/17 07:10 98.7 F 88 14 06/23/17 06:00 12 06/23/17 04:00 98.6 F 15 BP Pulse Ox Pulse Ox Pulse Ox 06/23/17 14:44 06/23/17 14:08 06/23/17 12:00 98 06/23/17 10:50 145/97 H 98 99 06/23/17 09:29 100 06/23/17 08:28 06/23/17 08:27 06/23/17 07:45 100 06/23/17 07:10 100 06/23/17 06:00 06/23/17 04:00 Weight Admit Weight 234 lb 7.437 oz Weight 242 lb 8.136 oz Most Recent Monitor Data Heart Rate from ECG 75 NIBP 159/99 NIBP BP-Mean 125 Respiration from ECG 18 SpO2 100 I&O: 06/22/17 06/23/17 06/24/17 06:59 06:59 06:59 Intake Total 3547 3437 0 Output Total 4463 5297 2243 [facility]260 -6925 -5921 Result Diagrams: 06/23/17 06:40 06/23/17 06:40 Additional Labs: Microbiology 06/17/17 14:05 Sputum Respiratory Culture - Final Staphylococcus aureus Phys Exam - Physical Examination Constitutional: NAD slightly sleepy and lethargic HEENT: PERRLA, moist MMs, sclera anicteric, oral pharynx no lesions Neck: no JVD Respiratory: no wheezing, no rales, no rhonchi, clear to auscultation bilateral Cardiovascular: RRR, no significant murmur Gastrointestinal: soft, non-tender, no distention, positive bowel sounds Musculoskeletal: no edema, pulses present B/L LE wekaness Psychiatric: normal affect, A&O x 3 Skin: no rash Dx/Plan (1) SAH (subarachnoid hemorrhage) Code(s): I60.9 - NONTRAUMATIC SUBARACHNOID HEMORRHAGE, UNSPECIFIED Status: Acute Comment: s/p EVD per NS.Failed coiling attempt.on Empiric ABX (2) Acute hypoxemic respiratory failure Code(s): J96.01 - ACUTE RESPIRATORY FAILURE WITH HYPOXIA Status: Acute Comment: Extubated successfully 06/23/17 (3) Uncontrolled hypertension Code(s): I10 - ESSENTIAL (PRIMARY) HYPERTENSION Status: Acute Comment: Remains on Cardene drip despite PO meds and prn anti hypertensives (4) NSTEMI (non-ST elevated myocardial infarction) Code(s): I21.4 - NON-ST ELEVATION (NSTEMI) MYOCARDIAL INFARCTION Status: Acute Comment: conservative management per cardiology (5) Aspiration pneumonia Code(s): J69.0 - PNEUMONITIS DUE TO INHALATION OF FOOD AND VOMIT Status: Acute (6) Metabolic acidosis Code(s): E87.2 - ACIDOSIS Status: Resolved (7) Lactic acid acidosis Code(s): E87.2 - ACIDOSIS Status: Resolved (8) HTN (hypertension) Code(s): I10 - ESSENTIAL (PRIMARY) HYPERTENSION Status: Chronic - Plan vásquez catheter, continue antibiotics, PT/OT, respiratory therapy, incentive spirometry, out of bed/ambulate, DVT proph w/SCDs Encourage ambulation and PO intake -: BP still high,will increase metoprolol& add HCTZ to lisinopril. monitor. -: EVD in place-per NS -: AM labs. -: IM team will follow * . Review of Systems - Review of Systems Constitutional: weakness, malaise Respiratory: negative: Cough, Dry, Shortness of Breath, Hemoptysis, SOB with Excertion, Pleuritic Pain, Sputum, Wheezing Cardiovascular: negative: chest pain, palpitations, orthopnea, paroxysmal nocturnal dyspnea, edema, light headedness, other Gastrointestinal: negative: Nausea, Vomiting, Abdominal Pain, Diarrhea, Constipation, Melena, Hematochezia, Other Genitourinary: negative: Dysuria, Frequency, Incontinence, Hematuria, Retention , Other Neurological: Weakness - Medications/Allergies Allergies/Adverse Reactions: Allergies Allergy/AdvReac Type Severity Reaction Status Date / Time ibuprofen Allergy Unverified 06/14/17 17:29 Medications: Current Medications Albuterol/Ipratropium (Duoneb) 3 ml NEB [id number] [place] Last Admin: 06/23/17 09:29 Dose: 3 ml Cefazolin Sodium (Ancef) 2 gm SLOW IVP Q8HR [place] Last Admin: 06/23/17 13:34 Dose: 2 gm Clonidine (Catapres) 0.1 mg PO Q4H PRN PRN Reason: SBP > 140 Last Admin: 06/21/17 09:51 Dose: 0.1 mg Clonidine (Catapres) 0.2 mg PO TID [place] Last Admin: 06/23/17 14:44 Dose: 0.2 mg Diphenhydramine HCl (Benadryl) 50 mg IVP Q6H PRN PRN Reason: Itching Hydralazine HCl (Apresoline) 20 mg SLOW IVP Q4H PRN PRN Reason: Hypertension Last Admin: 06/23/17 14:08 Dose: 20 mg Potassium Chloride 40 meq/ (Sodium Chloride) 270 mls @ 135 mls/hr IVPB ASDIR PRN PRN Reason: FOR SERUM K+ 2.5 - 3.5 Potassium Chloride 40 meq/ (Device) 100 mls @ 50 mls/hr IVPB ASDIR PRN PRN Reason: FOR SERUM K+ 2.5 - 3.5 Magnesium Sulfate 1 gm/ Sodium (Chloride) 102 mls @ 102 mls/hr IV PRN PRN PRN Reason: MAG LEVEL 1.4 - 2.0 Magnesium Sulfate 2 gm/ Device 100 mls @ 100 mls/hr IVPB ASDIR PRN PRN Reason: MAGNESIUM < 1.4 Potassium Phosphate 9 mmol/ (Sodium Chloride) 103 mls @ 25.75 mls/hr IVPB ASDIR PRN PRN Reason: Phosphate 1.0-1.8 Potassium Phosphate 12 mmol/ (Sodium Chloride) 254 mls @ 63.5 mls/hr IV ASDIR PRN PRN Reason: Serum phosphate 0.5-0.9 Potassium Phosphate 15 mmol/ (Sodium Chloride) 255 mls @ 63.75 mls/hr IV ASDIR PRN PRN Reason: Serum Phos < 0.5 Nicardipine HCl 50 mg/ Sodium (Chloride) 250 mls @ 0 mls/hr IVPB INF [place]; Titrate PRN Reason: Protocol Last Admin: 06/23/17 09:23 Dose: 250 mls Labetalol HCl (Normodyne) 10 mg SLOW IVP Q10MIN PRN PRN Reason: SBP > 140, HR > 70 Last Admin: 06/22/17 11:43 Dose: 10 mg Lisinopril (Zestril) 20 mg PO BID [facility] Last Admin: 06/23/17 08:28 Dose: 20 mg Magnesium Oxide (Magnesium Oxide) 400 mg PO BIDPRN PRN PRN Reason: FOR SERUM MAG 1.4 - 2.0 Magnesium Oxide (Magnesium Oxide) 800 mg PO PRN PRN PRN Reason: FOR SERUM MAG < 1.4 Metoprolol Tartrate (Lopressor) 100 mg PO BID [facility] Miscellaneous Medication (Phos-Nak) 1 pkt PO TIDPRN PRN PRN Reason: FOR PHOS LEVEL 1.0 - 1.8 Miscellaneous Medication (Phos-Nak) 2 pkt PO TIDPRN PRN PRN Reason: FOR PHOS LEVEL 0.5 - 1.0 Pantoprazole Sodium (Protonix) 40 mg IVP DAILY [facility] Last Admin: 06/23/17 08:28 Dose: 40 mg Potassium Chloride (K-Dur) 40 meq PO ASDIR PRN PRN Reason: FOR SERUM K+ 2.5 - 3.5 Last Admin: 06/22/17 06:44 Dose: 40 meq Potassium Chloride (Klor-Con) 40 meq PER TUBE ASDIR PRN PRN Reason: FOR SERUM K+ 2.5-3.5 Last Admin: 06/21/17 05:16 Dose: 40 meq Promethazine HCl (Phenergan) 25 mg IM Q4H PRN PRN Reason: Nausea/Vomiting Sodium Chloride (Flush - Normal Saline) 10 ml IVF Q12HR [facility] Last Admin: 06/23/17 08:28 Dose: 10 ml Sodium Chloride (Flush - Normal Saline) 10 ml IVF PRN PRN PRN Reason: Saline Flush Sodium Chloride (Flush - Normal Saline) 10 ml IV DAILY [facility] Last Admin: 06/23/17 08:28 Dose: 10 ml
[2017-06-23] MEDS: Lisinopril/Hydrochlorothiazide 20 mg/12.5 mg Tablet PO SCH (20:20)
[2017-06-23] MEDS: Metoprolol Tartrate 100 MG TAB PO SCH (20:21)
[2017-06-24] MEDS: CEFAZOLIN/Water 2 GM/20 ML SYRINGE SLOW IVP SCH ×3 (05:11→21:12)
[2017-06-24 05:55] LABS: Anion Gap 9 mmol/L (10-20); BUN (Urea Nitrogen) 21 mg/dL (8.9-20.6); Calc. Creatinine Clearance 176 mL/min (70-130); Calcium 9.8 mg/dL (7.8-10.44); Carbon Dioxide 28 mmol/L (22-29); Chloride 109 mmol/L (98-107); Estimated GFR-MDRD Greater than 90; Glucose 93 mg/dL (70-105); Potassium 3.2 mmol/L (3.5-5.1); Sodium 143 mmol/L (136-145)
[2017-06-24] MEDS: niCARdipine HCl 50 MG in Sodium Chloride 0.9% 250 ML 230 ML IVPB SCH ×3 (06:44→20:57)
[2017-06-24] MEDS: Potassium Chloride 20 MEQ TAB PO PRN (06:44)
[2017-06-24 06:51] LABS: #Basophils 0.1 thou/uL (0.0-0.2); #Eosinphils 0.2 thou/uL (0.0-0.7); #Monocytes 1.1 thou/uL (0.11-0.59); #Neutrophils 6.5 thou/uL (1.40-6.50); %Basophils 0.8 % (0.0-1.0); %Eosinophils 2.2 % (0.0-10.0); %Lymphocytes 19.9 % (21.0-51.0); %Monocytes 11.5 % (0.0-10.0); %Neutrophils 65.6 % (42.0-75.0); Hemoglobin 13.2 g/dL (14.0-18.0); Mean Corpuscular HGB CONC 33.7 g/dL (32.0-36.0); Mean Corpuscular Hemoglobin 32.6 pg (27.0-31.0); Mean Corpuscular Volume 96.9 fl (80.0-94.0); Mean Platelet Volume 8.2 fL (7.4-10.4); Platelet Count 369 thou/uL (130-400); RBC Distribution Width 14.9 % (11.5-14.5); RBC Morphology Normal; Red Blood Cell (RBC) Count 4.03 mill/uL (4.70-6.10); White Blood Cell (WBC) Count 9.8 thou/uL (4.8-10.8)
[2017-06-24] MEDS: Lisinopril/Hydrochlorothiazide 20 mg/12.5 mg Tablet PO SCH ×2 (08:25→20:56)
[2017-06-24] MEDS: Pantoprazole 40 MG VIAL IVP SCH (08:26)
[2017-06-24] MEDS: cloNIDine 0.2 MG TAB PO SCH ×3 (08:26→20:56)
[2017-06-24] MEDS: Metoprolol Tartrate 100 MG TAB PO SCH ×2 (08:26→20:56)
[2017-06-24] MEDS: Acetaminophen 500 MG TAB PO PRN ×4 (08:26→23:42)
--- NOTE | 2017-06-24 13:30 | PDOC.PN ---
- Subjective Encounter Start Date: 06/24/17 Encounter Start Time: 13:29 Subjective: awake but appears agitated,some behavioral changes -: does not answer Qs straight but keeps repeating himself - Objective MAR Reviewed: Yes Vital Signs & Weight: Vital Signs (12 hours) Temp Pulse Pulse Pulse Resp BP BP 06/24/17 11:00 71 87 151/96 H 06/24/17 08:26 142/91 H 06/24/17 08:25 110 H 142/91 H 06/24/17 08:00 98.7 F 108 H 18 06/24/17 07:08 06/24/17 07:06 98 20 06/24/17 04:00 98.5 F BP Pulse Ox Pulse Ox Pulse Ox 06/24/17 11:00 145/97 H 100 100 06/24/17 08:26 06/24/17 08:25 06/24/17 08:00 100 06/24/17 07:08 97 06/24/17 07:06 97 06/24/17 04:00 Weight Admit Weight 234 lb 7.437 oz Weight 233 lb 11.04 oz Most Recent Monitor Data Heart Rate from ECG 80 NIBP 146/105 NIBP BP-Mean 112 Respiration from ECG 14 SpO2 100 I&O: 06/23/17 06/24/17 06/25/17 06:59 06:59 06:59 Intake Total 3437 1236 700 Output Total 5297 5770 1600 [facility]1860 -[id number] -900 Result Diagrams: 06/24/17 05:15 06/24/17 05:15 Phys Exam - Physical Examination Constitutional: NAD awake and alert HEENT: PERRLA, moist MMs, sclera anicteric, oral pharynx no lesions EVD in place R scalp Neck: no JVD Respiratory: no wheezing, no rales, no rhonchi, clear to auscultation bilateral Cardiovascular: RRR, no significant murmur Gastrointestinal: soft, non-tender, no distention, positive bowel sounds Musculoskeletal: no edema, pulses present Neurological: moves all 4 limbs Deviation from normal: oriented to self and place Dx/Plan (1) SAH (subarachnoid hemorrhage) Code(s): I60.9 - NONTRAUMATIC SUBARACHNOID HEMORRHAGE, UNSPECIFIED Status: Acute Comment: s/p EVD per NS.Failed coiling attempt.on Empiric ABX (2) Acute hypoxemic respiratory failure Code(s): J96.01 - ACUTE RESPIRATORY FAILURE WITH HYPOXIA Status: Acute Comment: Extubated successfully 06/23/17 (3) Uncontrolled hypertension Code(s): I10 - ESSENTIAL (PRIMARY) HYPERTENSION Status: Acute Comment: Remains on Cardene drip despite PO meds and prn anti hypertensives (4) NSTEMI (non-ST elevated myocardial infarction) Code(s): I21.4 - NON-ST ELEVATION (NSTEMI) MYOCARDIAL INFARCTION Status: Acute Comment: conservative management per cardiology (5) Aspiration pneumonia Code(s): J69.0 - PNEUMONITIS DUE TO INHALATION OF FOOD AND VOMIT Status: Acute (6) Metabolic acidosis Code(s): E87.2 - ACIDOSIS Status: Resolved (7) Lactic acid acidosis Code(s): E87.2 - ACIDOSIS Status: Resolved (8) HTN (hypertension) Code(s): I10 - ESSENTIAL (PRIMARY) HYPERTENSION Status: Chronic - Plan continue antibiotics, PT/OT, speech therapy, respiratory therapy, incentive spirometry, DVT proph w/SCDs cont BP meds.much improved control on current regimen -: EVD removal per NS.cont supportive care -: OT,PT. -: am labs * . Review of Systems - Review of Systems Constitutional: weakness, malaise Cardiovascular: negative: chest pain, palpitations, orthopnea, paroxysmal nocturnal dyspnea, edema, light headedness, other Gastrointestinal: Constipation. negative: Nausea, Vomiting, Abdominal Pain, Diarrhea, Melena, Hematochezia, Other Genitourinary: negative: Dysuria, Frequency, Incontinence, Hematuria, Retention , Other Musculoskeletal: negative: Neck Pain, Shoulder Pain, Arm Pain, Back Pain, Hand Pain, Leg Pain, Foot Pain, Other - Medications/Allergies Allergies/Adverse Reactions: Allergies Allergy/AdvReac Type Severity Reaction Status Date / Time ibuprofen Allergy Unverified 06/14/17 17:29 Medications: Current Medications Acetaminophen (Tylenol) 1,000 mg PO Q6H PRN PRN Reason: Pain Last Admin: 06/24/17 08:26 Dose: 1,000 mg Albuterol/Ipratropium (Duoneb) 3 ml NEB [id number] [place] Last Admin: 06/24/17 07:06 Dose: 3 ml Cefazolin Sodium (Ancef) 2 gm SLOW IVP Q8HR [place] Last Admin: 06/24/17 05:11 Dose: 2 gm Clonidine (Catapres) 0.1 mg PO Q4H PRN PRN Reason: SBP > 140 Last Admin: 06/21/17 09:51 Dose: 0.1 mg Clonidine (Catapres) 0.2 mg PO TID [place] Last Admin: 06/24/17 08:26 Dose: 0.2 mg Diphenhydramine HCl (Benadryl) 50 mg IVP Q6H PRN PRN Reason: Itching Lisinopril/HCTZ (Prinizide 20-12.5) 1 tab PO BID [place] Last Admin: 06/24/17 08:25 Dose: 1 tab Hydralazine HCl (Apresoline) 20 mg SLOW IVP Q4H PRN PRN Reason: Hypertension Last Admin: 06/23/17 14:08 Dose: 20 mg Potassium Chloride 40 meq/ (Sodium Chloride) 270 mls @ 135 mls/hr IVPB ASDIR PRN PRN Reason: FOR SERUM K+ 2.5 - 3.5 Potassium Chloride 40 meq/ (Device) 100 mls @ 50 mls/hr IVPB ASDIR PRN PRN Reason: FOR SERUM K+ 2.5 - 3.5 Magnesium Sulfate 1 gm/ Sodium (Chloride) 102 mls @ 102 mls/hr IV PRN PRN PRN Reason: MAG LEVEL 1.4 - 2.0 Magnesium Sulfate 2 gm/ Device 100 mls @ 100 mls/hr IVPB ASDIR PRN PRN Reason: MAGNESIUM < 1.4 Potassium Phosphate 9 mmol/ (Sodium Chloride) 103 mls @ 25.75 mls/hr IVPB ASDIR PRN PRN Reason: Phosphate 1.0-1.8 Potassium Phosphate 12 mmol/ (Sodium Chloride) 254 mls @ 63.5 mls/hr IV ASDIR PRN PRN Reason: Serum phosphate 0.5-0.9 Potassium Phosphate 15 mmol/ (Sodium Chloride) 255 mls @ 63.75 mls/hr IV ASDIR PRN PRN Reason: Serum Phos < 0.5 Nicardipine HCl 50 mg/ Sodium (Chloride) 250 mls @ 0 mls/hr IVPB INF [place]; Titrate PRN Reason: Protocol Last Admin: 06/24/17 06:44 Dose: 250 mls Labetalol HCl (Normodyne) 10 mg SLOW IVP Q10MIN PRN PRN Reason: SBP > 140, HR > 70 Last Admin: 06/22/17 11:43 Dose: 10 mg Magnesium Oxide (Magnesium Oxide) 400 mg PO BIDPRN PRN PRN Reason: FOR SERUM MAG 1.4 - 2.0 Magnesium Oxide (Magnesium Oxide) 800 mg PO PRN PRN PRN Reason: FOR SERUM MAG < 1.4 Metoprolol Tartrate (Lopressor) 100 mg PO BID [facility] Last Admin: 06/24/17 08:26 Dose: 100 mg Miscellaneous Medication (Phos-Nak) 1 pkt PO TIDPRN PRN PRN Reason: FOR PHOS LEVEL 1.0 - 1.8 Miscellaneous Medication (Phos-Nak) 2 pkt PO TIDPRN PRN PRN Reason: FOR PHOS LEVEL 0.5 - 1.0 Pantoprazole Sodium (Protonix) 40 mg IVP DAILY [facility] Last Admin: 06/24/17 08:26 Dose: 40 mg Potassium Chloride (K-Dur) 40 meq PO ASDIR PRN PRN Reason: FOR SERUM K+ 2.5 - 3.5 Last Admin: 06/24/17 06:44 Dose: 40 meq Potassium Chloride (Klor-Con) 40 meq PER TUBE ASDIR PRN PRN Reason: FOR SERUM K+ 2.5-3.5 Last Admin: 06/21/17 05:16 Dose: 40 meq Promethazine HCl (Phenergan) 25 mg IM Q4H PRN PRN Reason: Nausea/Vomiting Sodium Chloride (Flush - Normal Saline) 10 ml IVF Q12HR [facility] Last Admin: 06/24/17 08:26 Dose: 10 ml Sodium Chloride (Flush - Normal Saline) 10 ml IVF PRN PRN PRN Reason: Saline Flush Sodium Chloride (Flush - Normal Saline) 10 ml IV DAILY [facility] Last Admin: 06/24/17 11:13 Dose: Not Given
[2017-06-24] MEDS: cloNIDine 0.1 MG TAB PO PRN (17:52)
--- NOTE | 2017-06-24 20:54 | PRG ---
DATE OF SERVICE: 06/24/2017 SUBJECTIVE: Mr. Hassan awakens quickly. He is in no distress. He quickly told me "I want out." OBJECTIVE: VITAL SIGNS: Heart rate 85, respiratory rate 20, oximetry is 99 on room air, blood pressure 172/93. LUNGS: Remarkable for coarse equal breath sounds. HEART: Regular rhythm, no S3. ABDOMEN: Soft and nontender. EXTREMITIES: No clubbing, cyanosis, or edema. Intake and output is negative 45 and 34. LABORATORY DATA: White count 9.8, hemoglobin 13.2, platelets 369,000. Sodium 143, potassium 3.2, chloride 109, bicarbonate 28, BUN 21, creatinine 0.7. IMPRESSION: 1. Subarachnoid bleed. 2. Hypertension. 3. Respiratory failure, status post extubation. PLAN: Continue attempts to controlling blood pressure. Supportive care including a swallowing evalu ation and physical therapy. Critical care time was 30 minutes.
[2017-06-24] MEDS: Morphine 4 MG/ML VIAL SLOW IVP PRN (23:57)
[2017-06-25] MEDS: niCARdipine HCl 50 MG in Sodium Chloride 0.9% 250 ML 230 ML IVPB SCH ×2 (00:25→08:31)
[2017-06-25] MEDS: HYDROcodone/Acetaminophen 5/325 mg Tablet PO PRN ×2 (02:28→19:51)
[2017-06-25 03:51] LABS: #Eosinphils 0.1 thou/uL (0.0-0.7); #Lymphocytes 1.2 thou/uL (1.20-3.40); #Monocytes 1.1 thou/uL (0.11-0.59); #Neutrophils 10.7 thou/uL (1.40-6.50); %Basophils 0.2 % (0.0-1.0); %Eosinophils 0.8 % (0.0-10.0); %Lymphocytes 9.4 % (21.0-51.0); %Monocytes 8.4 % (0.0-10.0); %Neutrophils 81.2 % (42.0-75.0); Hemoglobin 13.1 g/dL (14.0-18.0); Mean Corpuscular HGB CONC 33.9 g/dL (32.0-36.0); Mean Corpuscular Hemoglobin 33.4 pg (27.0-31.0); Mean Corpuscular Volume 98.5 fl (80.0-94.0); Mean Platelet Volume 8.4 fL (7.4-10.4); Platelet Count 366 thou/uL (130-400); RBC Distribution Width 14.5 % (11.5-14.5); Red Blood Cell (RBC) Count 3.92 mill/uL (4.70-6.10); White Blood Cell (WBC) Count 13.1 thou/uL (4.8-10.8)
[2017-06-25 03:59] LABS: Anion Gap 10 mmol/L (10-20); BUN (Urea Nitrogen) 14 mg/dL (8.9-20.6); Calc. Creatinine Clearance 188 mL/min (70-130); Calcium 9.7 mg/dL (7.8-10.44); Carbon Dioxide 30 mmol/L (22-29); Chloride 99 mmol/L (98-107); Estimated GFR-MDRD Greater than 90; Glucose 116 mg/dL (70-105); Potassium 3.2 mmol/L (3.5-5.1); Sodium 136 mmol/L (136-145)
[2017-06-25] MEDS: Potassium Chloride 20 MEQ TAB PO PRN (04:22)
[2017-06-25] MEDS: cloNIDine 0.1 MG TAB PO PRN (05:04)
[2017-06-25] MEDS: CEFAZOLIN/Water 2 GM/20 ML SYRINGE SLOW IVP SCH ×3 (05:04→22:44)
[2017-06-25] MEDS: Morphine 4 MG/ML VIAL SLOW IVP PRN ×4 (05:13→22:45)
[2017-06-25] MEDS: cloNIDine 0.2 MG TAB PO SCH ×3 (08:31→19:51)
[2017-06-25] MEDS: Pantoprazole 40 MG VIAL IVP SCH (08:31)
[2017-06-25] MEDS: hydrALAZINE 25 MG TAB PO SCH ×3 (08:31→19:52)
[2017-06-25] MEDS: Lisinopril/Hydrochlorothiazide 20 mg/12.5 mg Tablet PO SCH ×2 (08:31→19:52)
[2017-06-25] MEDS: Metoprolol Tartrate 100 MG TAB PO SCH ×2 (08:31→19:52)
--- NOTE | 2017-06-25 12:09 | PDOC.PN ---
- Subjective Encounter Start Date: 06/25/17 Encounter Start Time: 12:07 Subjective: no new events. no new complaints - Objective MAR Reviewed: Yes Vital Signs & Weight: Vital Signs (12 hours) Temp Pulse Resp BP Pulse Ox 06/25/17 08:31 72 173/109 H 06/25/17 08:00 98.9 F 72 19 97 06/25/17 07:00 98.9 F 06/25/17 06:40 97 06/25/17 06:35 72 24 H 97 06/25/17 05:04 181/101 H 06/25/17 03:00 98.5 F 06/25/17 00:25 99 Weight Admit Weight 231 lb 0.711 oz Weight 231 lb 0.711 oz Most Recent Monitor Data Heart Rate from ECG 74 NIBP 177/111 NIBP BP-Mean 127 Respiration from ECG 30 SpO2 100 I&O: 06/24/17 06/25/17 06/26/17 06:59 06:59 06:59 Intake Total 1236 3091 100 Output Total 5770 5366 635 [facility]4534 -[id number] -535 Result Diagrams: 06/25/17 03:22 06/25/17 03:22 Phys Exam - Physical Examination Constitutional: NAD HEENT: PERRLA, moist MMs, sclera anicteric, oral pharynx no lesions Neck: no nodes, no JVD, supple, full ROM Respiratory: no wheezing, no rales, no rhonchi, clear to auscultation bilateral Cardiovascular: RRR, no significant murmur, no rub, gallop Gastrointestinal: soft, non-tender, no distention, positive bowel sounds Musculoskeletal: no edema, pulses present Neurological: normal sensation b/l leg weakness Psychiatric: normal affect, A&O x 3 Skin: no rash Dx/Plan (1) SAH (subarachnoid hemorrhage) Code(s): I60.9 - NONTRAUMATIC SUBARACHNOID HEMORRHAGE, UNSPECIFIED Status: Acute Comment: s/p EVD per NS.Failed coiling attempt.on Empiric ABX (2) Acute hypoxemic respiratory failure Code(s): J96.01 - ACUTE RESPIRATORY FAILURE WITH HYPOXIA Status: Acute Comment: Extubated successfully 06/23/17 (3) Uncontrolled hypertension Code(s): I10 - ESSENTIAL (PRIMARY) HYPERTENSION Status: Acute Comment: Remains on Cardene drip despite PO meds and prn anti hypertensives (4) NSTEMI (non-ST elevated myocardial infarction) Code(s): I21.4 - NON-ST ELEVATION (NSTEMI) MYOCARDIAL INFARCTION Status: Acute Comment: conservative management per cardiology (5) Aspiration pneumonia Code(s): J69.0 - PNEUMONITIS DUE TO INHALATION OF FOOD AND VOMIT Status: Acute (6) Metabolic acidosis Code(s): E87.2 - ACIDOSIS Status: Resolved (7) Lactic acid acidosis Code(s): E87.2 - ACIDOSIS Status: Resolved (8) HTN (hypertension) Code(s): I10 - ESSENTIAL (PRIMARY) HYPERTENSION Status: Chronic - Plan DVT proph w/SCDs bp still high requiring cardene drip.will add Hydralazine TID -: cont lopressor,Lisinopril/HCTZ -: EVD removed per NS.HD stable otherwise -: frequent neuro checks -: will follow * . Review of Systems - Review of Systems Constitutional: weakness, malaise. negative: fever, chills, sweats, other Respiratory: negative: Cough, Dry, Shortness of Breath, Hemoptysis, SOB with Excertion, Pleuritic Pain, Sputum, Wheezing Cardiovascular: negative: chest pain, palpitations, orthopnea, paroxysmal nocturnal dyspnea, edema, light headedness, other Gastrointestinal: negative: Nausea, Vomiting, Abdominal Pain, Diarrhea, Constipation, Melena, Hematochezia, Other Genitourinary: negative: Dysuria, Frequency, Incontinence, Hematuria, Retention , Other Musculoskeletal: negative: Neck Pain, Shoulder Pain, Arm Pain, Back Pain, Hand Pain, Leg Pain, Foot Pain, Other Neurological: Weakness - Medications/Allergies Allergies/Adverse Reactions: Allergies Allergy/AdvReac Type Severity Reaction Status Date / Time ibuprofen Allergy Unverified 06/14/17 17:29 Medications: Current Medications Acetaminophen (Tylenol) 1,000 mg PO Q6H PRN PRN Reason: Pain Last Admin: 06/24/17 23:42 Dose: 1,000 mg Hydrocodone Bitart/Acetaminophen ([place] 5/325) 1 tab PO Q6H PRN PRN Reason: Pain 4-6 Last Admin: 06/25/17 02:28 Dose: 1 tab Albuterol/Ipratropium (Duoneb) 3 ml NEB [id number] [place] Last Admin: 06/25/17 06:35 Dose: 3 ml Cefazolin Sodium (Ancef) 2 gm SLOW IVP Q8HR [facility] Last Admin: 06/25/17 05:04 Dose: 2 gm Clonidine (Catapres) 0.1 mg PO Q4H PRN PRN Reason: SBP > 140 Last Admin: 06/25/17 05:04 Dose: 0.1 mg Clonidine (Catapres) 0.2 mg PO TID [facility] Last Admin: 06/25/17 08:31 Dose: 0.2 mg Diphenhydramine HCl (Benadryl) 50 mg IVP Q6H PRN PRN Reason: Itching Lisinopril/HCTZ (Prinizide 20-12.5) 1 tab PO BID [facility] Last Admin: 06/25/17 08:31 Dose: 1 tab Hydralazine HCl (Apresoline) 20 mg SLOW IVP Q4H PRN PRN Reason: Hypertension Last Admin: 06/23/17 14:08 Dose: 20 mg Hydralazine HCl (Apresoline) 25 mg PO TID [facility] Last Admin: 06/25/17 08:31 Dose: 25 mg Potassium Chloride 40 meq/ (Sodium Chloride) 270 mls @ 135 mls/hr IVPB ASDIR PRN PRN Reason: FOR SERUM K+ 2.5 - 3.5 Potassium Chloride 40 meq/ (Device) 100 mls @ 50 mls/hr IVPB ASDIR PRN PRN Reason: FOR SERUM K+ 2.5 - 3.5 Magnesium Sulfate 1 gm/ Sodium (Chloride) 102 mls @ 102 mls/hr IV PRN PRN PRN Reason: MAG LEVEL 1.4 - 2.0 Magnesium Sulfate 2 gm/ Device 100 mls @ 100 mls/hr IVPB ASDIR PRN PRN Reason: MAGNESIUM < 1.4 Potassium Phosphate 9 mmol/ (Sodium Chloride) 103 mls @ 25.75 mls/hr IVPB ASDIR PRN PRN Reason: Phosphate 1.0-1.8 Potassium Phosphate 12 mmol/ (Sodium Chloride) 254 mls @ 63.5 mls/hr IV ASDIR PRN PRN Reason: Serum phosphate 0.5-0.9 Potassium Phosphate 15 mmol/ (Sodium Chloride) 255 mls @ 63.75 mls/hr IV ASDIR PRN PRN Reason: Serum Phos < 0.5 Nicardipine HCl 50 mg/ Sodium (Chloride) 250 mls @ 0 mls/hr IVPB INF [place]; Titrate PRN Reason: Protocol Last Admin: 06/25/17 08:31 Dose: 250 mls Labetalol HCl (Normodyne) 10 mg SLOW IVP Q10MIN PRN PRN Reason: SBP > 140, HR > 70 Last Admin: 06/22/17 11:43 Dose: 10 mg Magnesium Oxide (Magnesium Oxide) 400 mg PO BIDPRN PRN PRN Reason: FOR SERUM MAG 1.4 - 2.0 Magnesium Oxide (Magnesium Oxide) 800 mg PO PRN PRN PRN Reason: FOR SERUM MAG < 1.4 Metoprolol Tartrate (Lopressor) 100 mg PO BID [facility] Last Admin: 06/25/17 08:31 Dose: 100 mg Miscellaneous Medication (Phos-Nak) 1 pkt PO TIDPRN PRN PRN Reason: FOR PHOS LEVEL 1.0 - 1.8 Miscellaneous Medication (Phos-Nak) 2 pkt PO TIDPRN PRN PRN Reason: FOR PHOS LEVEL 0.5 - 1.0 Morphine Sulfate (Morphine) 2 mg SLOW IVP Q4H PRN PRN Reason: PAIN 7-10 Last Admin: 06/25/17 11:27 Dose: 2 mg Pantoprazole Sodium (Protonix) 40 mg IVP DAILY [facility] Last Admin: 06/25/17 08:31 Dose: 40 mg Potassium Chloride (K-Dur) 40 meq PO ASDIR PRN PRN Reason: FOR SERUM K+ 2.5 - 3.5 Last Admin: 06/25/17 04:22 Dose: 40 meq Potassium Chloride (Klor-Con) 40 meq PER TUBE ASDIR PRN PRN Reason: FOR SERUM K+ 2.5-3.5 Last Admin: 06/21/17 05:16 Dose: 40 meq Promethazine HCl (Phenergan) 25 mg IM Q4H PRN PRN Reason: Nausea/Vomiting Sodium Chloride (Flush - Normal Saline) 10 ml IVF Q12HR [facility] Last Admin: 06/25/17 08:31 Dose: 10 ml Sodium Chloride (Flush - Normal Saline) 10 ml IVF PRN PRN PRN Reason: Saline Flush Sodium Chloride (Flush - Normal Saline) 10 ml IV DAILY [facility] Last Admin: 06/25/17 08:32 Dose: 10 ml
[2017-06-25] MEDS: Labetalol HCl 100 MG/20 ML VIAL SLOW IVP PRN ×3 (12:16→14:22)
--- NOTE | 2017-06-25 15:05 | PRG ---
DATE OF SERVICE: 06/25/2017 SUBJECTIVE: Marcos Hassan is clinically unchanged. OBJECTIVE: VITAL SIGNS: His heart rate is 103, respiratory rate is 18, oximetry is 100 on room air, and blood p ressure 174/91 this afternoon. LUNGS: Clear. HEART: Regular rhythm. ABDOMEN: Soft. EXTREMITIES: Without asymmetry. LABORATORY DATA: White count 13.1, hemoglobin 13.1, platelets 366. Sodium 136, potassium 3.2, chloride 99, bicarbonate 30, BUN 14, creatinine 0.72. Intake and output is negative 2275. IMPRESSION AND PLAN: 1. Status post subarachnoid hemorrhage. 2. Hypertension. 3. Respiratory failure. 4. Status post extubation, clinically stable. He is still encephalopathic, but for the most part co operative, still needs to be in a close watch environment such as the ICU or the IMU.
--- NOTE | 2017-06-25 15:27 | CT ---
PRELIMINARY REPORT/[facility]/EMERGENTY AFTER-HOURS PROCEDURE CT Head Without Intravenous Contrast EXAM DATE/TIME: Exam ordered 06/25/2017 3:47 AM CLINICAL HISTORY: 47 years old, male; Signs and symptoms; Syncope and collapse; Prior surgery; Surgery date: 3-7 days p ost-operative; Patient HX: F/u S/P sah; Evd TECHNIQUE: Axial computed tomography images of the head/brain without intravenous contrast. COMPARISON: CT Brain WO Con 2017-06-17 10:04 FINDINGS: Brain: Scattered sulcal hyperdensity is present, less prominent from prior exam compatible with subac meño subarachnoid hemorrhage, decreased from prior No significant white matter disease. Midline shift: There is no midline shift. Ventricles: Redemonstrated is intraventricular hemorrhage layering dependently within the bilateral o ccipital horns, as well as clot within the third ventricle and RIGHT lateral ventricle, decreased fro m prior. Bones/joints: Normal. No acute fracture. Soft tissues: Normal. Sinuses: Unremarkable as visualized. No acute sinusitis. Mastoid air cells: Unremarkable as visualized. No mastoid effusion. Tubes, lines and devices: There is a RIGHT [employer] shunt coursing into the RIGHT frontal horn via a RIGHT frontal approach. IMPRESSION: Subacute subarachnoid and intraventricular hemorrhage, decreased from prior. No midline shift. No new hemorrhage. Thank you for allowing us to participate in the care of your patient. Dictated and Authenticated by: Nick Marquez MD 06/25/2017 4:48 AM Central Time ([place] & [place]) FINAL REPORT CT BRAIN: Final report. Preliminary exam was performed by [facility]. HISTORY: A 47-year-old male with a history of intraventricular and subarachnoid hemorrhage followup. FINDINGS/IMPRESSION: I concur with the dictation from [facility]. There continues to be some subarachnoid hemorrha ge in the right and left frontoparietal regions. Blood continues to tire layer in the occipital horn of the lateral ventricles. Previously, there was blood more centrally and surrounding the foramen of Monro in the lateral ventricle extending into the third ventricle. Now there appears to be less blo od in this area; however, there is now more blood in the upper aspect of the right lateral ventricle. The overall size of the lateral, third, and fourth ventricles are similar in size or may be minimal ly enlarged. The right frontal intraventricular drain is in place. POS: [facility]
[2017-06-25] MEDS: hydrALAZINE 20 MG/ML VIAL SLOW IVP PRN (23:21)
[2017-06-26] MEDS: niCARdipine HCl 50 MG in Sodium Chloride 0.9% 250 ML 230 ML IVPB SCH ×3 (00:01→10:14)
[2017-06-26] MEDS: Morphine 4 MG/ML VIAL SLOW IVP PRN ×4 (02:01→23:26)
[2017-06-26] MEDS: hydrALAZINE 20 MG/ML VIAL SLOW IVP PRN ×2 (03:38→13:37)
[2017-06-26 04:28] LABS: #Eosinphils 0.2 thou/uL (0.0-0.7); #Lymphocytes 1.5 thou/uL (1.20-3.40); #Monocytes 1.1 thou/uL (0.11-0.59); #Neutrophils 8.9 thou/uL (1.40-6.50); %Basophils 0.3 % (0.0-1.0); %Eosinophils 1.3 % (0.0-10.0); %Lymphocytes 13.1 % (21.0-51.0); %Monocytes 9.6 % (0.0-10.0); %Neutrophils 75.7 % (42.0-75.0); Hemoglobin 13.3 g/dL (14.0-18.0); Mean Corpuscular HGB CONC 33.7 g/dL (32.0-36.0); Mean Corpuscular Hemoglobin 32.5 pg (27.0-31.0); Mean Corpuscular Volume 96.5 fl (80.0-94.0); Mean Platelet Volume 8.5 fL (7.4-10.4); Platelet Count 358 thou/uL (130-400); RBC Distribution Width 14.6 % (11.5-14.5); Red Blood Cell (RBC) Count 4.08 mill/uL (4.70-6.10); White Blood Cell (WBC) Count 11.8 thou/uL (4.8-10.8)
[2017-06-26 04:48] LABS: Anion Gap 12 mmol/L (10-20); BUN (Urea Nitrogen) 17 mg/dL (8.9-20.6); Calc. Creatinine Clearance 172 mL/min (70-130); Calcium 9.7 mg/dL (7.8-10.44); Carbon Dioxide 28 mmol/L (22-29); Chloride 97 mmol/L (98-107); Estimated GFR-MDRD Greater than 90; Glucose 101 mg/dL (70-105); Potassium 3.6 mmol/L (3.5-5.1); Sodium 133 mmol/L (136-145)
[2017-06-26] MEDS: CEFAZOLIN/Water 2 GM/20 ML SYRINGE SLOW IVP SCH (05:01)
[2017-06-26] MEDS: HYDROcodone/Acetaminophen 5/325 mg Tablet PO PRN ×3 (05:39→20:31)
[2017-06-26] MEDS: Lisinopril/Hydrochlorothiazide 20 mg/12.5 mg Tablet PO SCH ×2 (08:13→20:31)
[2017-06-26] MEDS: hydrALAZINE 25 MG TAB PO SCH ×3 (08:15→20:30)
[2017-06-26] MEDS: Metoprolol Tartrate 100 MG TAB PO SCH ×2 (08:16→20:32)
[2017-06-26] MEDS: cloNIDine 0.2 MG TAB PO SCH ×3 (08:16→20:32)
--- NOTE | 2017-06-26 08:37 | PRG ---
DATE OF SERVICE: 06/26/2017 Mr. Hassan is awake and talkative. He is still restrained because apparently he tries to pull out medical monitoring devices. PHYSICAL EXAMINATION: VITAL SIGNS: Temperature 99.1, pulse 110, blood pressure 146/110, blood pressure has been as high as 180/154 yesterday. HEENT: Remarkable for negro in the right frontal area where he had an intraventricular drain in maia. NECK: Without JVD. CHEST: Clear without wheeze or rhonchi. CARDIAC: S1 and S2 regular. ABDOMEN: Soft, nontender. EXTREMITIES: No edema. LABORATORY DATA: Sodium 132, potassium 3.6, chloride 97, CO2 28, BUN 17, creatinine 0.7, glucose 101 . White blood count 11.8, hematocrit 39.4, platelet count 358. ASSESSMENT: 1. Status post intracranial bleed secondary to a subarachnoid hemorrhage. 2. Status post acute respiratory failure. 3. Malignant hypertension. PLAN: We will go ahead and start amlodipine and hopefully wean him off the nicardipine today. It mi ght be advisable to get Cardiology or Renal involved to see if they have any suggestions regarding hi s malignant hypertension. The patient needs to get up in a chair today. Until his encephalopathy is better he will have to be monitored in a close environment like ICU or IMCU.
[2017-06-26] MEDS: Amlodipine 10 MG TAB PO SCH (08:42)
--- NOTE | 2017-06-26 16:27 | PDOC.PN ---
- Subjective Encounter Start Date: 06/26/17 Encounter Start Time: 16:25 Subjective: more awake today.pulling at negro in scalp -: no no complaints/events -: remains on Cardene drip - Objective MAR Reviewed: Yes Vital Signs & Weight: Vital Signs (12 hours) Temp Pulse Resp BP BP BP Pulse Ox 06/26/17 16:00 99.0 F 06/26/17 14:34 173/113 H 06/26/17 14:32 77 22 H 100 06/26/17 14:31 89 175/117 H 06/26/17 13:37 89 173/113 H 06/26/17 12:00 98.9 F 06/26/17 09:25 146/100 H 170/95 H 06/26/17 08:42 106 H 170/95 H 06/26/17 08:16 146/100 H 06/26/17 08:15 111 H 146/100 H 06/26/17 08:13 74 146/100 H 06/26/17 07:49 111 H 16 100 06/26/17 07:30 99.1 F 118 H 16 100 Weight Admit Weight 231 lb 0.711 oz Weight 232 lb 1.6 oz Most Recent Monitor Data Heart Rate from ECG 67 NIBP 164/100 NIBP BP-Mean 119 Respiration from ECG 18 SpO2 100 I&O: 06/25/17 06/26/17 06/27/17 06:59 06:59 06:59 Intake Total 3091 2223 0 Output Total 5366 2795 1010 [facility] -2275 -572 -1010 Result Diagrams: 06/26/17 04:00 06/26/17 04:00 Phys Exam - Physical Examination Constitutional: NAD slow and sleepy , at bedside HEENT: PERRLA, moist MMs, sclera anicteric, oral pharynx no lesions Neck: no JVD Respiratory: no wheezing, no rales, no rhonchi, clear to auscultation bilateral Cardiovascular: RRR, no significant murmur Gastrointestinal: soft, non-tender, no distention, positive bowel sounds Musculoskeletal: no edema, pulses present Neurological: normal sensation LE weakness Psychiatric: normal affect, A&O x 3 Skin: no rash Dx/Plan (1) Uncontrolled hypertension Code(s): I10 - ESSENTIAL (PRIMARY) HYPERTENSION Status: Acute Comment: Remains on Cardene drip despite PO meds and prn anti hypertensives (2) SAH (subarachnoid hemorrhage) Code(s): I60.9 - NONTRAUMATIC SUBARACHNOID HEMORRHAGE, UNSPECIFIED Status: Acute Comment: s/p EVD per NS.Failed coiling attempt.on Empiric ABX (3) Acute hypoxemic respiratory failure Code(s): J96.01 - ACUTE RESPIRATORY FAILURE WITH HYPOXIA Status: Acute Comment: Extubated successfully 06/23/17 (4) NSTEMI (non-ST elevated myocardial infarction) Code(s): I21.4 - NON-ST ELEVATION (NSTEMI) MYOCARDIAL INFARCTION Status: Acute Comment: conservative management per cardiology (5) Aspiration pneumonia Code(s): J69.0 - PNEUMONITIS DUE TO INHALATION OF FOOD AND VOMIT Status: Acute (6) Metabolic acidosis Code(s): E87.2 - ACIDOSIS Status: Resolved (7) Lactic acid acidosis Code(s): E87.2 - ACIDOSIS Status: Resolved (8) HTN (hypertension) Code(s): I10 - ESSENTIAL (PRIMARY) HYPERTENSION Status: Chronic - Plan plan discussed w/ family, continue antibiotics, PT/OT, pediatric social worker, respiratory therapy, incentive spirometry, DVT proph w/SCDs Uncontrolled HTN.Hydralazine added yesterday & Norvasc today -: will consult Nephrology for malignanat HTN -: cont current care. -: EVD removed.no Aneursym noted by NS -: am labs.CCU care.appreciate PCCM/NS help * . Review of Systems - Review of Systems Constitutional: weakness, malaise Respiratory: negative: Cough, Dry, Shortness of Breath, Hemoptysis, SOB with Excertion, Pleuritic Pain, Sputum, Wheezing Cardiovascular: negative: chest pain, palpitations, orthopnea, paroxysmal nocturnal dyspnea, edema, light headedness, other Gastrointestinal: negative: Nausea, Vomiting, Abdominal Pain, Diarrhea, Constipation, Melena, Hematochezia, Other Genitourinary: negative: Dysuria, Frequency, Incontinence, Hematuria, Retention , Other Musculoskeletal: negative: Neck Pain, Shoulder Pain, Arm Pain, Back Pain, Hand Pain, Leg Pain, Foot Pain, Other Neurological: Weakness - Medications/Allergies Allergies/Adverse Reactions: Allergies Allergy/AdvReac Type Severity Reaction Status Date / Time ibuprofen Allergy Unverified 06/14/17 17:29 Medications: Current Medications Acetaminophen (Tylenol) 1,000 mg PO Q6H PRN PRN Reason: Pain Last Admin: 06/24/17 23:42 Dose: 1,000 mg Hydrocodone Bitart/Acetaminophen ([place] 5/325) 1 tab PO Q6H PRN PRN Reason: Pain 4-6 Last Admin: 06/26/17 13:57 Dose: 1 tab Albuterol/Ipratropium (Duoneb) 3 ml NEB [id number] [facility] Last Admin: 06/26/17 14:32 Dose: 3 ml Amlodipine Besylate (Norvasc) 10 mg PO DAILY [facility] Last Admin: 06/26/17 08:42 Dose: 10 mg Clonidine (Catapres) 0.1 mg PO Q4H PRN PRN Reason: SBP > 140 Last Admin: 06/25/17 05:04 Dose: 0.1 mg Clonidine (Catapres) 0.2 mg PO TID [facility] Last Admin: 06/26/17 14:34 Dose: 0.2 mg Diphenhydramine HCl (Benadryl) 50 mg IVP Q6H PRN PRN Reason: Itching Lisinopril/HCTZ (Prinizide 20-12.5) 1 tab PO BID [facility] Last Admin: 06/26/17 08:13 Dose: 1 tab Hydralazine HCl (Apresoline) 20 mg SLOW IVP Q4H PRN PRN Reason: Hypertension Last Admin: 06/26/17 13:37 Dose: 20 mg Hydralazine HCl (Apresoline) 25 mg PO TID [facility] Last Admin: 06/26/17 14:31 Dose: 25 mg Potassium Chloride 40 meq/ (Sodium Chloride) 270 mls @ 135 mls/hr IVPB ASDIR PRN PRN Reason: FOR SERUM K+ 2.5 - 3.5 Potassium Chloride 40 meq/ (Device) 100 mls @ 50 mls/hr IVPB ASDIR PRN PRN Reason: FOR SERUM K+ 2.5 - 3.5 Magnesium Sulfate 1 gm/ Sodium (Chloride) 102 mls @ 102 mls/hr IV PRN PRN PRN Reason: MAG LEVEL 1.4 - 2.0 Magnesium Sulfate 2 gm/ Device 100 mls @ 100 mls/hr IVPB ASDIR PRN PRN Reason: MAGNESIUM < 1.4 Potassium Phosphate 9 mmol/ (Sodium Chloride) 103 mls @ 25.75 mls/hr IVPB ASDIR PRN PRN Reason: Phosphate 1.0-1.8 Potassium Phosphate 12 mmol/ (Sodium Chloride) 254 mls @ 63.5 mls/hr IV ASDIR PRN PRN Reason: Serum phosphate 0.5-0.9 Potassium Phosphate 15 mmol/ (Sodium Chloride) 255 mls @ 63.75 mls/hr IV ASDIR PRN PRN Reason: Serum Phos < 0.5 Nicardipine HCl 50 mg/ Sodium (Chloride) 250 mls @ 0 mls/hr IVPB INF [place]; Titrate PRN Reason: Protocol Last Admin: 06/26/17 10:14 Dose: 250 mls Labetalol HCl (Normodyne) 10 mg SLOW IVP Q10MIN PRN PRN Reason: SBP > 140, HR > 70 Last Admin: 06/25/17 14:22 Dose: 10 mg Magnesium Oxide (Magnesium Oxide) 400 mg PO BIDPRN PRN PRN Reason: FOR SERUM MAG 1.4 - 2.0 Magnesium Oxide (Magnesium Oxide) 800 mg PO PRN PRN PRN Reason: FOR SERUM MAG < 1.4 Metoprolol Tartrate (Lopressor) 100 mg PO BID [place] Last Admin: 06/26/17 08:16 Dose: 100 mg Miscellaneous Medication (Phos-Nak) 1 pkt PO TIDPRN PRN PRN Reason: FOR PHOS LEVEL 1.0 - 1.8 Miscellaneous Medication (Phos-Nak) 2 pkt PO TIDPRN PRN PRN Reason: FOR PHOS LEVEL 0.5 - 1.0 Morphine Sulfate (Morphine) 2 mg SLOW IVP Q4H PRN PRN Reason: PAIN 7-10 Last Admin: 06/26/17 15:36 Dose: 2 mg Pantoprazole Sodium (Protonix) 40 mg PO DAILY [place] Last Admin: 06/26/17 08:16 Dose: 40 mg Potassium Chloride (K-Dur) 40 meq PO ASDIR PRN PRN Reason: FOR SERUM K+ 2.5 - 3.5 Last Admin: 06/25/17 04:22 Dose: 40 meq Potassium Chloride (Klor-Con) 40 meq PER TUBE ASDIR PRN PRN Reason: FOR SERUM K+ 2.5-3.5 Last Admin: 06/21/17 05:16 Dose: 40 meq Promethazine HCl (Phenergan) 25 mg IM Q4H PRN PRN Reason: Nausea/Vomiting Sodium Chloride (Flush - Normal Saline) 10 ml IVF Q12HR [place] Last Admin: 06/26/17 08:17 Dose: 10 ml Sodium Chloride (Flush - Normal Saline) 10 ml IVF PRN PRN PRN Reason: Saline Flush
--- NOTE | 2017-06-26 17:15 | CON ---
NEPHROLOGY CONSULTATION NOTE DATE OF CONSULTATION: 06/26/2017 CONSULTING PHYSICIAN: Nidia Darling M.D. REASON FOR CONSULTATION: Hypertension. REASON FOR ADMISSION: Subarachnoid hemorrhage. HISTORY OF PRESENT ILLNESS: A 47-year-old male with history of hypertension, noncompliance is admitt ed to the hospital for subarachnoid hemorrhage and being treated. The patient is on Cardene drip and the plan is to wean him off and start oral medication. Nephrology is consulted for hypertension man agement and probably chronic followup. PAST MEDICAL HISTORY: Positive for hypertension and noncompliance. PAST SURGICAL HISTORY: None. HOME MEDICATIONS: Not reliable and seems like patient was not taking any medications before admissio n. ALLERGIES: IBUPROFEN. SOCIAL HISTORY: No smoking, marijuana was positive. No alcohol use reported. FAMILY HISTORY: Positive for hypertension. REVIEW OF SYSTEMS: The following complete review of systems was negative, unless otherwise mentioned in the HPI or below: Constitutional: Weight loss or gain, ability to conduct usual activities. Skin: Rash, itching. Eyes: Double vision, pain. ENT/Mouth: Nose bleeding, neck stiffness, pain, tenderness. Cardiovascular: Palpitations, dyspnea on exertion, orthopnea. Respiratory: Shortness of breath, wheezing, cough, hemoptysis, fever or night sweats. Gastrointestinal: Poor appetite, abdominal pain, heartburn, nausea, vomiting, constipation, or diarr hea. Genitourinary: Urgency, frequency, dysuria, nocturia. Musculoskeletal: Pain, swelling. Neurologic/Psychiatric: Anxiety, depression. Allergy/Immunologic: Skin rash, bleeding tendency. PHYSICAL EXAMINATION: GENERAL: This is a well-built male in no apparent distress. VITAL SIGNS: Temperature 99.1, pulse 71, respiratory rate 16 and blood pressure 150/92. HEENT: Atraumatic and normocephalic. Oral mucosa is moist. NECK: Supple. No masses. CARDIOVASCULAR: S1 and S2. Rate and rhythm regular. RESPIRATORY: Clear. ABDOMEN: Soft. MUSCULOSKELETAL: 1+ edema. DERMATOLOGIC: No skin rash. NEUROLOGIC: Alert and awake. PSYCHIATRIC: Mood and affect normal. LABORATORY DATA: Hemoglobin is 13.1. Potassium IS 3.6, BUN is 17 and creatinine is 0.7. ASSESSMENT AND PLAN: 1. Hypertension with noncompliance. Agree with weaning off Cardene as tolerated and consider Procar lori if amlodipine cannot hold the blood pressure, currently on lisinopril and hydralazine and we can up titrate if needed and add other medicines if needed. Currently, on clonidine also. 2. Edema, controlled. 3. Hypokalemia, mild. 4. Anemia, mild. 5. Substance abuse. 6. Prognosis is guarded. We will start medication and titrate as needed. Thank you for the consult and we will follow.
[2017-06-27 06:26] LABS: Calcium 9.9 mg/dL (7.8-10.44)
[2017-06-27 06:32] LABS: Anion Gap 12 mmol/L (10-20); BUN (Urea Nitrogen) 23 mg/dL (8.9-20.6); Calc. Creatinine Clearance 164 mL/min (70-130); Carbon Dioxide 29 mmol/L (22-29); Chloride 97 mmol/L (98-107); Estimated GFR-MDRD Greater than 90; Glucose 104 mg/dL (70-105); Potassium 3.5 mmol/L (3.5-5.1); Sodium 134 mmol/L (136-145)
[2017-06-27] MEDS: Lisinopril/Hydrochlorothiazide 20 mg/12.5 mg Tablet PO SCH ×2 (08:27→20:15)
[2017-06-27] MEDS: Metoprolol Tartrate 100 MG TAB PO SCH ×2 (08:28→20:16)
[2017-06-27] MEDS: Amlodipine 10 MG TAB PO SCH (08:28)
[2017-06-27] MEDS: hydrALAZINE 25 MG TAB PO SCH ×3 (08:31→20:15)
[2017-06-27] MEDS: cloNIDine 0.3 MG TAB PO SCH ×3 (08:31→20:15)
--- NOTE | 2017-06-27 08:32 | PRG ---
DATE OF SERVICE: 06/27/2017 SUBJECTIVE: The patient is talking to himself, very much inappropriate with much of the things that he says. PHYSICAL EXAMINATION: VITAL SIGNS: Temperature is 98.4, pulse 111, blood pressure 167/101. He is currently on a Cardene d rip at 4 mg per hour which has been titrated down since yesterday. Total intake for 24 hours 1342, o utput 2400. HEENT: Unremarkable. NECK: No JVD. LUNGS: Clear. CARDIAC: S1 and S2 regular. ABDOMEN: Soft. EXTREMITIES: No edema. LABORATORY DATA: Sodium 134, potassium 3.5, chloride 97, CO2 29, BUN 23, creatinine 0.8, glucose 104 . ASSESSMENT: 1. Status post subarachnoid hemorrhage. 2. Encephalopathy. 3. Malignant hypertension. PLAN: Increase hydralazine. Increase clonidine in hopes of getting him off the Cardene drip. Once he is off the Cardene drip he may be able to transfer to the floor, although some of his behavior is going to require a 24-hour sitter.
--- NOTE | 2017-06-27 08:46 | PDOC.PN ---
- Subjective Encounter Start Date: 06/27/17 Encounter Start Time: 08:44 Subjective: alert, labile given to outbursts - Objective MAR Reviewed: Yes Vital Signs & Weight: Vital Signs (12 hours) Temp Pulse Resp BP Pulse Ox 06/27/17 08:31 114 H 142/108 H 06/27/17 08:28 114 H 142/108 H 06/27/17 08:27 114 H 143/108 H 06/27/17 07:29 99 06/27/17 07:27 105 H 19 06/27/17 07:23 98.4 F 86 16 95 06/27/17 07:00 98.4 F 06/27/17 04:00 97.9 F 06/27/17 00:00 98.4 F 06/26/17 23:09 99 Weight Admit Weight 231 lb 0.711 oz Weight 232 lb Most Recent Monitor Data Heart Rate from ECG 137 NIBP 143/108 NIBP BP-Mean 120 Respiration from ECG 19 SpO2 100 I&O: 06/26/17 06/27/17 06/28/17 06:59 06:59 06:59 Intake Total 2223 1342 0 Output Total 2795 2400 100 Balance -572 -1058 -100 Result Diagrams: 06/26/17 04:00 06/27/17 05:00 Phys Exam - Physical Examination Neck: no JVD Respiratory: clear to auscultation bilateral Cardiovascular: RRR, no significant murmur Gastrointestinal: soft, non-tender, positive bowel sounds Musculoskeletal: edema present Neurological: non-focal, moves all 4 limbs Dx/Plan (1) HTN (hypertension), malignant Code(s): I10 - ESSENTIAL (PRIMARY) HYPERTENSION Status: Acute Comment: severe (2) Encephalopathy Code(s): G93.40 - ENCEPHALOPATHY, UNSPECIFIED Status: Acute (3) NSTEMI (non-ST elevated myocardial infarction) Code(s): I21.4 - NON-ST ELEVATION (NSTEMI) MYOCARDIAL INFARCTION Status: Acute Comment: conservative management per cardiology (4) SAH (subarachnoid hemorrhage) Code(s): I60.9 - NONTRAUMATIC SUBARACHNOID HEMORRHAGE, UNSPECIFIED Status: Acute Comment: s/p EVD per NS.Failed coiling attempt.on Empiric ABX - Plan still on iv cardene, tachycardic- add minoxidil, cont metoprolo, GILDA, -: clonidinr, amlodipine, etc -: restrained for safety -: discuss with intesivist, NS * .
[2017-06-27] MEDS: Minoxidil 2.5 MG TAB PO SCH (09:27)
[2017-06-27] MEDS: HYDROcodone/Acetaminophen 5/325 mg Tablet PO PRN ×2 (10:32→20:16)
[2017-06-28 04:58] LABS: Anion Gap 15 mmol/L (10-20); BUN (Urea Nitrogen) 24 mg/dL (8.9-20.6); Calc. Creatinine Clearance 166 mL/min (70-130); Calcium 9.8 mg/dL (7.8-10.44); Carbon Dioxide 23 mmol/L (22-29); Chloride 99 mmol/L (98-107); Estimated GFR-MDRD Greater than 90; Glucose 105 mg/dL (70-105); Potassium 3.7 mmol/L (3.5-5.1); Sodium 133 mmol/L (136-145)
--- NOTE | 2017-06-28 07:47 | PRG ---
DATE OF SERVICE: 06/28/2017 SUBJECTIVE: Mr. Hassan remains in the CCU. He continues to be encephalopathic. He is partially o riented. PHYSICAL EXAMINATION: VITAL SIGNS: Temperature is 98.5, pulse 112, blood pressure 166/122. 24 hour intake 1580, output 20 55. HEENT: Unremarkable. NECK: No JVD. LUNGS: Clear. CARDIAC: S1, S2, tachycardic. ABDOMEN: Soft and nontender. EXTREMITIES: No edema. LABORATORY DATA: Sodium 133, potassium 3.7, chloride 99, CO2 23, BUN 24, creatinine 0.8, glucose 105 . ASSESSMENT: 1. Subarachnoid hemorrhage. 2. Grossly encephalopathic. 3. Malignant hypertension. 4. Developing hyponatremia. PLAN: In reviewing his medications, I think the hyponatremia is probably secondary to the use of the thiazide diuretic along with lisinopril. I will go ahead and stop the thiazide portion of that and continue lisinopril. Nephrology has been consulted for hypertension management. Internal Medicine h as added minoxidil. The patient probably could be transferred to the Intermediate Care Unit if other consultants agree. He is going to need close observation wherever he is.
[2017-06-28] MEDS: hydrALAZINE 25 MG TAB PO SCH ×3 (08:48→20:45)
[2017-06-28] MEDS: Lisinopril 20 MG TAB PO SCH ×2 (08:48→20:45)
[2017-06-28] MEDS: Minoxidil 2.5 MG TAB PO SCH (08:48)
[2017-06-28] MEDS: Amlodipine 10 MG TAB PO SCH (08:48)
[2017-06-28] MEDS: Metoprolol Tartrate 100 MG TAB PO SCH ×2 (08:48→20:45)
[2017-06-28] MEDS: cloNIDine 0.3 MG TAB PO SCH ×3 (08:49→20:46)
--- NOTE | 2017-06-28 08:59 | PDOC.PN ---
- Subjective Encounter Start Date: 06/28/17 Encounter Start Time: 08:57 Subjective: labile MS, easily agitated - Objective MAR Reviewed: Yes Vital Signs & Weight: Vital Signs (12 hours) Temp Pulse Resp BP Pulse Ox 06/28/17 08:49 123/106 H 06/28/17 08:48 124 H 167/109 H 06/28/17 07:55 124 H 06/28/17 07:53 98.5 F 110 H 18 98 06/28/17 04:00 98.5 F 06/28/17 01:21 98 06/28/17 00:00 98.9 F Weight Admit Weight 231 lb 0.711 oz Weight 232 lb Most Recent Monitor Data Heart Rate from ECG 64 NIBP 148/98 NIBP BP-Mean 112 Respiration from ECG 16 SpO2 100 I&O: 06/27/17 06/28/17 06/29/17 06:59 06:59 06:59 Intake Total 1342 1588 0 Output Total 2400 2255 130 Balance -1058 -667 -130 Result Diagrams: 06/26/17 04:00 06/28/17 04:40 Phys Exam - Physical Examination Neck: no JVD Respiratory: clear to auscultation bilateral Cardiovascular: RRR, no significant murmur tachy Gastrointestinal: soft, positive bowel sounds Musculoskeletal: no edema Dx/Plan (1) HTN (hypertension), malignant Code(s): I10 - ESSENTIAL (PRIMARY) HYPERTENSION Status: Acute Comment: severe (2) Encephalopathy Code(s): G93.40 - ENCEPHALOPATHY, UNSPECIFIED Status: Acute (3) NSTEMI (non-ST elevated myocardial infarction) Code(s): I21.4 - NON-ST ELEVATION (NSTEMI) MYOCARDIAL INFARCTION Status: Acute Comment: conservative management per cardiology (4) SAH (subarachnoid hemorrhage) Code(s): I60.9 - NONTRAUMATIC SUBARACHNOID HEMORRHAGE, UNSPECIFIED Status: Acute Comment: s/p EVD per NS.Failed coiling attempt.on Empiric ABX - Plan tachycardia appears to follow agitation- on metprolol 200 mg per day -: will increase minoxidil to 5 mg daily, stop hydralazine if possible -: move to [facility] * .
--- NOTE | 2017-06-28 17:29 | PRG ---
DATE OF SERVICE: 06/28/2017 SUBJECTIVE: Patient was seen and examined at bedside and overnight events noted. Patient denies any shortness of breath or chest pain or palpitation. No history of nausea or vomiting or diarrhea or f ever or chills or cramps. OBJECTIVE: GENERAL: This is a well-built male in no apparent distress. VITAL SIGNS: Temperature is 98.9, pulse 90, respiratory rate 16 and blood pressure 143/85. HEENT: Atraumatic, normocephalic. Oral mucosa is moist. NECK: Supple. CARDIOVASCULAR: S1, S2 heard. Rate and rhythm regular. RESPIRATORY: Clear to auscultation. GASTROINTESTINAL: Abdomen is soft. MUSCULOSKELETAL: No tenderness. No edema. DERMATOLOGIC: No skin rash. NEUROLOGIC: Alert and awake and oriented x3. No focal neurologic deficits. Moving all the extremit ies. PSYCHIATRIC: Mood and affect normal. LABORATORY DATA: Potassium is 3.7, BUN is 24 and creatinine is 0.8. ASSESSMENT AND PLAN: 1. Hypertension, getting better. Continue to titrate medications. 2. Edema. 3. Hypokalemia. 4. Hyponatremia. 5. Substance abuse. 6. We will continue to up titrate medications. 7. We will follow.
--- NOTE | 2017-06-28 18:49 | PRG ---
DATE OF SERVICE: 06/27/2017 SUBJECTIVE: Patient was seen and examined at bedside and overnight events noted. Patient denies any shortness of breath or chest pain or palpitation. No history of nausea or vomiting or diarrhea or f ever or chills or cramps. OBJECTIVE: GENERAL: This is a well-built male in no apparent distress. VITAL SIGNS: Temperature 98.3, pulse 72, respiratory rate 19, blood pressure 133/91. HEENT: Atraumatic, normocephalic. Oral mucosa is moist. NECK: Supple. CARDIOVASCULAR: S1, S2 heard. Rate and rhythm regular. RESPIRATORY: Clear to auscultation. GASTROINTESTINAL: Abdomen is soft. MUSCULOSKELETAL: No tenderness. 1+ edema. DERMATOLOGIC: No skin rash. NEUROLOGIC: Alert and awake and oriented x3. No focal neurologic deficits. Moving all the extremiti es. PSYCHIATRIC: Mood and affect normal. LABORATORY DATA: Potassium 3.5, BUN 23, creatinine 0.8. ASSESSMENT AND PLAN: 1. Hypertension with noncompliance. Plan is to wean off Cardene drip and up titrate medications. 2. Edema, controlled. 3. Hyperkalemia, stable. 4. Substance abuse. 5. Hyponatremia. We will monitor. Plan is to up titrate oral medications and wean off Cardene drip.
[2017-06-29 04:05] LABS: Anion Gap 11 mmol/L (10-20); BUN (Urea Nitrogen) 36 mg/dL (8.9-20.6); Calc. Creatinine Clearance 136 mL/min (70-130); Carbon Dioxide 25 mmol/L (22-29); Chloride 100 mmol/L (98-107); Estimated GFR-MDRD Greater than 90; Glucose 108 mg/dL (70-105); Potassium 4.2 mmol/L (3.5-5.1); Sodium 132 mmol/L (136-145)
--- NOTE | 2017-06-29 09:21 | PRG ---
DATE OF SERVICE: 06/29/2017 SUBJECTIVE: I am finding the patient is less communicative than he was yesterday. He is mainly just groaning. OBJECTIVE: VITAL SIGNS: On exam, temperature is 98.0, pulse 86, respirations 18, O2 sat 95%, blood pressure 133 /80. HEENT: Unremarkable. NECK: No JVD. CHEST: Fairly clear. CARDIAC: S1 and S2, regular. ABDOMEN: Soft. EXTREMITIES: Trace edema. LABORATORY DATA: Sodium 132, potassium 3.2, chloride 100, CO2 of 25, BUN 36, creatinine 0.9, glucose 108. ASSESSMENT: 1. Status post subarachnoid hemorrhage. 2. Continued encephalopathy. 3. Hyponatremia. 4. Malignant hypertension. RECOMMENDATIONS: This is a difficult situation. It does not appear that he is on any medications th at could be leading to the encephalopathy. The one exception may be the clonidine. He may actually require a slightly higher blood pressure to mentate well. I will go ahead and stop the clonidine and see if that helps his disease on plenty of other blood pressure medications. We will follow.
[2017-06-29] MEDS: hydrALAZINE 25 MG TAB PO SCH ×3 (09:50→21:55)
[2017-06-29] MEDS: Metoprolol Tartrate 100 MG TAB PO SCH ×2 (09:50→21:56)
[2017-06-29] MEDS: Amlodipine 10 MG TAB PO SCH (09:50)
[2017-06-29] MEDS: Minoxidil 2.5 MG TAB PO SCH (09:51)
[2017-06-29] MEDS: Lisinopril 20 MG TAB PO SCH ×2 (09:51→21:55)
--- NOTE | 2017-06-29 11:32 | PDOC.PN ---
- Subjective Encounter Start Date: 06/29/17 Encounter Start Time: 11:31 Subjective: calmer today - Objective MAR Reviewed: Yes Vital Signs & Weight: Vital Signs (12 hours) Temp Pulse Resp BP BP Pulse Ox 06/29/17 09:51 130/73 06/29/17 09:50 86 06/29/17 07:41 98.0 F 86 18 133/90 95 06/29/17 07:15 100 22 H 96 06/29/17 05:20 95 06/29/17 04:05 97.3 F L 85 21 H 118/72 95 06/29/17 01:12 60 18 95 06/29/17 00:06 98.3 F 83 20 97/69 95 Weight Admit Weight 231 lb 0.711 oz Weight 224 lb 5 oz Most Recent Monitor Data Heart Rate from ECG 122 NIBP 129/103 NIBP BP-Mean 113 Respiration from ECG 14 SpO2 72 I&O: 06/28/17 06/29/17 06/30/17 06:59 06:59 06:59 Intake Total 1588 840 Output Total 2255 1710 Balance -667 -870 Result Diagrams: 06/26/17 04:00 06/29/17 03:40 Phys Exam - Physical Examination Neck: no JVD Respiratory: clear to auscultation bilateral Cardiovascular: RRR, no significant murmur Gastrointestinal: soft, non-tender, positive bowel sounds Musculoskeletal: edema present Neurological: non-focal Dx/Plan (1) HTN (hypertension), malignant Code(s): I10 - ESSENTIAL (PRIMARY) HYPERTENSION Status: Chronic Comment: severe (2) Encephalopathy Code(s): G93.40 - ENCEPHALOPATHY, UNSPECIFIED Status: Acute (3) NSTEMI (non-ST elevated myocardial infarction) Code(s): I21.4 - NON-ST ELEVATION (NSTEMI) MYOCARDIAL INFARCTION Status: Acute Comment: conservative management per cardiology (4) SAH (subarachnoid hemorrhage) Code(s): I60.9 - NONTRAUMATIC SUBARACHNOID HEMORRHAGE, UNSPECIFIED Status: Acute Comment: s/p EVD per NS.Failed coiling attempt.on Empiric ABX - Plan nutrition -: control BP, much improvewd with addition of minoxidil -: expectant observation -: discuss with intesivist * .
--- NOTE | 2017-06-29 18:00 | PRG ---
DATE OF SERVICE: 06/29/2017 NEPHROLOGY PROGRESS NOTE SUBJECTIVE: Patient was seen and examined at bedside and overnight events noted. Patient denies any shortness of breath or chest pain or palpitation. No history of nausea or vomiting or diarrhea or f ever or chills or cramps. OBJECTIVE: GENERAL: This is a well-built male in no apparent distress. VITAL SIGNS: Temperature 96, pulse 74, respiratory rate 18, blood pressure 116/88. HEENT: Atraumatic, normocephalic. Oral mucosa is moist. NECK: Supple. CARDIOVASCULAR: S1, S2 heard. Rate and rhythm regular. RESPIRATORY: Clear to auscultation. GASTROINTESTINAL: Abdomen is soft. MUSCULOSKELETAL: No tenderness. No edema. DERMATOLOGIC: No skin rash. NEUROLOGIC: Alert and awake and oriented x3. No focal neurologic deficits. Moving all the extremiti es. PSYCHIATRIC: Mood and affect normal. LABORATORY DATA: Potassium is 4.2, BUN 36, creatinine 0.6. ASSESSMENT AND PLAN: 1. Hypertension. Blood pressure is stable. Currently on oral medications. 2. Edema, controlled. 3. Hyperkalemia. 4. Hyponatremia, stable. 5. Substance abuse, counseled. 6. Blood pressure is stable. Continue on current medications and I will sign off. Please call back with any questions.
[2017-06-29] MEDS: HYDROcodone/Acetaminophen 5/325 mg Tablet PO PRN (21:56)
[2017-06-30 05:29] LABS: Anion Gap 15 mmol/L (10-20); BUN (Urea Nitrogen) 56 mg/dL (8.9-20.6); Calc. Creatinine Clearance 71 mL/min (70-130); Calcium 10.1 mg/dL (7.8-10.44); Carbon Dioxide 24 mmol/L (22-29); Chloride 101 mmol/L (98-107); Estimated GFR-MDRD 48; Glucose 116 mg/dL (70-105); Potassium 4.4 mmol/L (3.5-5.1); Sodium 136 mmol/L (136-145)
--- NOTE | 2017-06-30 09:20 | PRG ---
DATE OF SERVICE: 06/30/2017 The patient's mental status has continued to deteriorate in my opinion. He was talking after extubat ion, although what he said did not make much sense. Now, all he does is groan. PHYSICAL EXAMINATION: VITAL SIGNS: Temperature is 98.6, pulse 104, respirations 19, O2 sat 100% on room air, blood pressur e 90/65. HEENT: Unremarkable. NECK: No JVD. LUNGS: Clear. CARDIAC: S1 and S2 regular. ABDOMEN: Soft. EXTREMITIES: Trace edema. LABORATORY: Sodium 136, potassium 4.4, chloride 101, CO2 24, BUN 56, creatinine 1.8, glucose 116. W huyen blood cell count 11.8, hematocrit 39.4, platelet count 358. ASSESSMENT: 1. Malignant hypertension. 2. Subarachnoid hemorrhage. 3. Encephalopathy. PLAN: 1. Stop the GILDA inhibitor. 2. May have to consider reducing some of his other medications as his blood pressure is trending low and this may be causing hypoperfusion state. 3. Start IV fluids as apparently he has not been cleared to swallow. 4. Consider inserting NG tube and starting enteral tube feeds.
--- NOTE | 2017-06-30 09:26 | PDOC.PN ---
- Subjective Encounter Start Date: 06/30/17 Encounter Start Time: 09:25 Subjective: decreased MS, post SAH - Objective MAR Reviewed: Yes Vital Signs & Weight: Vital Signs (12 hours) Temp Pulse Resp BP BP Pulse Ox 06/30/17 07:30 98.6 F 25 L 19 97/65 100 06/30/17 07:27 104 H 22 H 98 06/30/17 04:00 99.2 F 103 H 18 119/85 99 06/30/17 01:38 109 H 20 06/29/17 21:55 112 H 116/86 Weight Admit Weight 234 lb 2.095 oz Weight 225 lb 2.988 oz Most Recent Monitor Data Heart Rate from ECG 122 NIBP 129/103 NIBP BP-Mean 113 Respiration from ECG 14 SpO2 72 I&O: 06/29/17 06/30/17 07/01/17 06:59 06:59 06:59 Intake Total 840 Output Total 1710 950 Balance -870 -950 Result Diagrams: 06/26/17 04:00 06/30/17 03:33 Phys Exam - Physical Examination Constitutional: NAD Neck: no JVD scattered rhonchi Cardiovascular: RRR, no significant murmur Gastrointestinal: soft, positive bowel sounds Musculoskeletal: no edema Neurological: non-focal Dx/Plan (1) HTN (hypertension), malignant Code(s): I10 - ESSENTIAL (PRIMARY) HYPERTENSION Status: Chronic Comment: severe (2) Encephalopathy Code(s): G93.40 - ENCEPHALOPATHY, UNSPECIFIED Status: Acute (3) NSTEMI (non-ST elevated myocardial infarction) Code(s): I21.4 - NON-ST ELEVATION (NSTEMI) MYOCARDIAL INFARCTION Status: Acute Comment: conservative management per cardiology (4) SAH (subarachnoid hemorrhage) Code(s): I60.9 - NONTRAUMATIC SUBARACHNOID HEMORRHAGE, UNSPECIFIED Status: Acute Comment: s/p EVD per NS.Failed coiling attempt.on Empiric ABX (5) Acute renal failure Status: Acute - Plan DC lisinopril -: CXR, ABG, CT brain * .
[2017-06-30] MEDS: Minoxidil 2.5 MG TAB PO SCH (09:46)
[2017-06-30] MEDS: hydrALAZINE 25 MG TAB PO SCH ×3 (09:46→21:43)
[2017-06-30] MEDS: Amlodipine 10 MG TAB PO SCH (09:46)
[2017-06-30] MEDS: Metoprolol Tartrate 100 MG TAB PO SCH (09:46)
[2017-06-30] MEDS: Lisinopril 20 MG TAB PO SCH (09:47)
--- NOTE | 2017-06-30 10:22 | RAD ---
PORTABLE SEMIUPRIGHT FRONTAL CHEST RADIOGRAPH: Date: 06/30/17 COMPARISON: 06/20/17. HISTORY: Altered mental status. FINDINGS: There is gaseous distention of bowel in the upper abdomen, incompletely assessed on this exam. There is patchy increased density in the medial right lung base suggesting partial consolidation/collapse o f the right lower lobe. No lobar consolidation or alveolar edema. IMPRESSION: Gaseous distention of bowel in the upper abdomen. Nonspecific mild increased density in the medial ri ght lung base. POS: JACOBH
[2017-06-30] MEDS: Dextrose 5 %-0.45 % NaCl 1,000 ML IV SCH ×2 (11:02→23:30)
[2017-06-30 11:17] LABS: Actual Bicarbonate (HCO3a) 21.8 mEq/L (22-26); Base Excess (BEa) -0.8 mEq/L (0 (+/-) 2.5); CO2 Tension 29.5 mmHg (35.0-45.0); Hematocrit-ABG 38.7 % (42.0-52.0); Hemoglobin (Hb) 11.7 g/dL (14.0-18.0); O2 Tension (PaO2) 54.3 mmHg (80.0-100.0); pH, Arterial 7.49 (7.35-7.45)
[2017-06-30 11:18] LABS: ALV-art Gradient 58.555 (0-20); Calcium, Ionized 1.2 mmol/L (1.12-1.30)
--- NOTE | 2017-06-30 11:44 | PRG ---
Patient Name: ARTI BERNAL Date of service: 06/30/2017 Subjective: Patient was seen and examined at bedside and overnight events noted. Patient denies any shortness of breath or chest pain or palpitation. No history of nausea or vomiting or diarrhea or fever or chills or cramps. Objective: General: This is a well-built male in no apparent distress. Vital signs: Temperature 99.2, pulse 101, respiratory 18, blood pressure 105/67. HEENT: Atraumatic, normocephalic. Oral mucosa is moist. Neck: Supple. Cardiovascular: S1 S2 heard. Rate and rhythm regular. Respiratory: Clear to auscultation. Gastrointestinal: Abdomen is soft. Musculoskeletal: No tenderness. No edema. Dermatologic: No skin rash. Neurologic: Alert and awake and oriented X3. No focal neurologic deficits. Moving all the extremit ies. Psychiatric: Mood and affect normal. LABORATORY DATA: Potassium is 4.4, BUN 56, creatinine is 1.8. ASSESSMENT AND PLAN: 1. Acute kidney injury on chronic kidney disease, most likely secondary to medications and volume de pletion. The patient is not eating very well. Agree with hydration and holding the GILDA inhibitor at this point. 2. Hypertension, stable. 3. Edema, controlled. 4. Substance abuse. IV hydration with close monitoring blood pressure and renal function.
--- NOTE | 2017-06-30 11:47 | CT ---
HEAD CT WITHOUT CONTRAST: Date: 06/30/17 COMPARISON: 06/25/17. HISTORY: Decreased mental status, subarachnoid hemorrhage. TECHNIQUE: Serial axial CT imaging at 5 mm intervals from vertex through skull base without contrast. FINDINGS: There is mild mucosal thickening of the sphenoid sinus on the left, stable. Imaged paranasal sinuses and mastoid air cells otherwise unremarkable. No displaced calvarial fracture. Since the 06/25/17 examination, the right frontal ventriculostomy tube has been removed. There is sma ll volume residual intraventricular blood layering in the posterior horns of bilateral lateral ventri cles. The fourth ventricle, lateral ventricles, and third ventricle are prominent, as seen on the prior exa mination. The hemorrhage seen along the septum pellucidum to the right of midline on the prior examination is n o longer seen. No new subarachnoid hemorrhage is evident. As seen on numerous prior examinations, there is diffuse loss of sulcation suggesting diffuse cerebra l edema, which does not appear significantly changed when compared to numerous prior studies. IMPRESSION: Residual intraventricular blood, stable diffuse cerebral edema as evidenced by crowding of the sulci diffusely, and stable prominence of the ventricular system. No new hemorrhage. POS: ALPHONSO
[2017-06-30 14:54] LABS: #Eosinphils 0.1 thou/uL (0.0-0.7); #Lymphocytes 1.3 thou/uL (1.20-3.40); #Monocytes 1.5 thou/uL (0.11-0.59); #Neutrophils 9.8 thou/uL (1.40-6.50); %Basophils 0.3 % (0.0-1.0); %Eosinophils 0.6 % (0.0-10.0); %Lymphocytes 10.3 % (21.0-51.0); %Monocytes 11.8 % (0.0-10.0); %Neutrophils 77.1 % (42.0-75.0); Hemoglobin 12.3 g/dL (14.0-18.0); Mean Corpuscular HGB CONC 32.9 g/dL (32.0-36.0); Mean Corpuscular Hemoglobin 31.9 pg (27.0-31.0); Mean Corpuscular Volume 97.1 fl (80.0-94.0); Mean Platelet Volume 8.2 fL (7.4-10.4); Platelet Count 368 thou/uL (130-400); RBC Distribution Width 14.3 % (11.5-14.5); Red Blood Cell (RBC) Count 3.85 mill/uL (4.70-6.10); White Blood Cell (WBC) Count 12.6 thou/uL (4.8-10.8)
[2017-06-30 15:08] LABS: ALT (SGPT) 14 U/L (8-55); AST (SGOT) 21 U/L (5-34); Albumin 3.4 g/dL (3.5-5.0); Alkaline Phosphatase 85 U/L (40-150); Anion Gap 19 mmol/L (10-20); BUN (Urea Nitrogen) 70 mg/dL (8.9-20.6); Bilirubin, Total 0.6 mg/dL (0.2-1.2); Calc. Creatinine Clearance 52 mL/min (70-130); Calcium 9.4 mg/dL (7.8-10.44); Carbon Dioxide 18 mmol/L (22-29); Chloride 103 mmol/L (98-107); Estimated GFR-MDRD 33; Globulin 3.8 g/dL (2.4-3.5); Glucose 129 mg/dL (70-105); Potassium 4.5 mmol/L (3.5-5.1); Protein, Total 7.2 g/dL (6.0-8.3); Sodium 135 mmol/L (136-145)
[2017-06-30 15:09] LABS: Lactic Acid 1.4 mmol/L (0.5-2.2)
[2017-06-30] MEDS ORDERED: Sodium Chloride 0.9% 1,000 ML IV SCH (17:45)
--- NOTE | 2017-06-30 18:16 | PDOC.EVN ---
Event Note - Event Note Event Note: CT brain -no acote change. cxr RLL infiltrate+ leukocytosis- Dx PNA- start cefepime and levaquin. also, NS bolus + routine iv fluids
[2017-06-30] MEDS: Azithromycin 500 MG in Sodium Chloride 0.9% 250 ML 250 ML IVPB SCH (19:48)
[2017-06-30] MEDS ORDERED: Cefepime 2 GM in Sodium Chloride 0.9% 100 ML IVPB SCH (20:00)
[2017-06-30] MEDS: Cefepime 2 GM, Syringe 2.5 ML in Sodium Chloride 0.9% 10 ML SLOW IVP SCH (21:25)
[2017-06-30] MEDS: Aquaphor 30 GM 99 GM, Cholestyramine/Aspartame 4 GM TOP SCH (21:28)
[2017-07-01 05:17] LABS: Anion Gap 13 mmol/L (10-20); BUN (Urea Nitrogen) 72 mg/dL (8.9-20.6); Calc. Creatinine Clearance 74 mL/min (70-130); Calcium 9.6 mg/dL (7.8-10.44); Carbon Dioxide 23 mmol/L (22-29); Chloride 105 mmol/L (98-107); Estimated GFR-MDRD 50; Glucose 123 mg/dL (70-105); Potassium 4.3 mmol/L (3.5-5.1); Sodium 137 mmol/L (136-145)
[2017-07-01] MEDS: Dextrose 5 %-0.45 % NaCl 1,000 ML IV SCH ×3 (05:55→18:34)
[2017-07-01] MEDS: hydrALAZINE 25 MG TAB PO SCH ×3 (08:02→20:35)
--- NOTE | 2017-07-01 08:59 | PDOC.PN ---
- Subjective Encounter Start Date: 07/01/17 Encounter Start Time: 08:57 Subjective: awake, follows with eyes, no appropriate responce - Objective MAR Reviewed: Yes Vital Signs & Weight: Vital Signs (12 hours) Temp Pulse Resp BP Pulse Ox 07/01/17 08:18 116 H 20 07/01/17 08:02 121 H 07/01/17 07:34 98.7 F 121 H 20 99 07/01/17 07:25 97.2 F L 117 H 20 137/94 H 94 L 07/01/17 05:30 98.7 F 121 H 20 133/99 H 98 07/01/17 04:00 98.8 F 105 H 22 H 143/99 H 98 07/01/17 00:23 113 H 18 98 07/01/17 00:00 99 F 113 H 26 H 111/70 95 06/30/17 21:43 105 H Weight Admit Weight 234 lb 2.095 oz Weight 224 lb 14.4 oz Most Recent Monitor Data Heart Rate from ECG 122 NIBP 129/103 NIBP BP-Mean 113 Respiration from ECG 14 SpO2 72 I&O: 06/30/17 07/01/17 07/02/17 06:59 06:59 06:59 Intake Total 2633 Output Total 950 1050 Balance -950 1583 Result Diagrams: 06/30/17 14:44 07/01/17 04:47 Phys Exam - Physical Examination steady moaning with respirations Neck: no JVD grossly clear, difficlt exam with his soft moaning Cardiovascular: RRR Gastrointestinal: soft, non-tender, positive bowel sounds Musculoskeletal: no edema Neurological: non-focal Dx/Plan (1) HTN (hypertension), malignant Code(s): I10 - ESSENTIAL (PRIMARY) HYPERTENSION Status: Chronic Comment: severe (2) Encephalopathy Code(s): G93.40 - ENCEPHALOPATHY, UNSPECIFIED Status: Acute (3) NSTEMI (non-ST elevated myocardial infarction) Code(s): I21.4 - NON-ST ELEVATION (NSTEMI) MYOCARDIAL INFARCTION Status: Acute Comment: conservative management per cardiology (4) SAH (subarachnoid hemorrhage) Code(s): I60.9 - NONTRAUMATIC SUBARACHNOID HEMORRHAGE, UNSPECIFIED Status: Acute Comment: s/p EVD per NS.Failed coiling attempt.on Empiric ABX (5) Acute renal failure Status: Acute - Plan some increase in alertness -: creatinie decreased with iv fluids and DC GILDA -: cont npo, consider tube feeding -: cont parenteral antihypertensives -: cont iv antibx, serial lab * .
[2017-07-01] MEDS: Aquaphor 30 GM 99 GM, Cholestyramine/Aspartame 4 GM TOP SCH (09:01)
[2017-07-01] MEDS: Cefepime 2 GM, Syringe 2.5 ML in Sodium Chloride 0.9% 10 ML SLOW IVP SCH ×2 (10:57→22:22)
--- NOTE | 2017-07-01 14:28 | PRG ---
DATE OF SERVICE: 07/01/2017 SUBJECTIVE: Mr. Hassan is about the same. He continues to harm, but does not really answer verbal ly. OBJECTIVE: VITAL SIGNS: Temperature 98.4, pulse 114, respirations 16, O2 sat 99%, blood pressure 152/85. HEENT: Unremarkable. NECK: No JVD. LUNGS: Coarse breath sounds. CARDIAC: S1 and S2 regular. ABDOMEN: Soft. EXTREMITIES: No edema. LABORATORY DATA: Sodium 137, potassium 4.3, chloride 105, CO2 of 23, BUN 72, creatinine 1.7, and glu cose 123. ASSESSMENT: 1. Persistent encephalopathy after subarachnoid hemorrhage - in my opinion, his mental status is muc h worse than it was a week ago at this time. 2. Malignant hypertension. 3. Encephalopathy. 4. Question of hospital-acquired or aspiration pneumonia. PLAN: It might be rouse to get Neurosurgery re-involved in the case if they are not seeing the patien t. I do not think his mental status is explainable by a hospital-acquired infection. It could be th at his blood pressure was running low for several days compared to what he is used to. More likely e xplanation is the continued cerebral edema in his brain. I have reviewed his orders. Agree with the empiric antibiotics. I will continue to follow with you.
--- NOTE | 2017-07-01 15:23 | PDOC.EVN ---
Event Note - Event Note Event Note: called NS to check CT brain due to mental status decline
--- NOTE | 2017-07-01 18:55 | PRG ---
DATE OF SERVICE: 07/01/2017 SUBJECTIVE: Patient was seen and examined at bedside and overnight events noted. Patient denies any shortness of breath or chest pain or palpitation. No history of nausea or vomitin g or diarrhea or fever or chills or cramps. OBJECTIVE: GENERAL: This is a well-built male, in mild to moderate distress. VITAL SIGNS: Temperature , blood pressure 130/86. HEENT: Atraumatic, normocephalic. Oral mucosa is moist NECK: Supple. CARDIOVASCULAR: S1 and S2 heard. Rate and rhythm regular. RESPIRATORY: Clear to auscultation. GASTROINTESTINAL: Abdomen is soft. MUSCULOSKELETAL: No tenderness. No edema. DERMATOLOGIC: No skin rash. NEUROLOGIC: Lethargic. PSYCHIATRIC: Mood and affect normal. LABORATORY DATA: Potassium 4.3, BUN 72, creatinine is 1.7. ASSESSMENT AND PLAN: 1. Acute kidney injury most likely volume depletion and lisinopril. Agree with holding lisinopril a nd hydration. Creatinine is better. 2. Hypertension, stable. 3. Edema, controlled. 4. Substance abuse. 5. Cerebrovascular accident. 6. Prognosis guarded. We will follow.
[2017-07-01] MEDS: Azithromycin 500 MG in Sodium Chloride 0.9% 250 ML 250 ML IVPB SCH (20:53)
[2017-07-01] MEDS: Morphine 4 MG/ML VIAL SLOW IVP PRN (22:45)
--- NOTE | 2017-07-02 00:13 | CON ---
DATE OF CONSULTATION: 07/01/2017 HISTORY OF PRESENT ILLNESS: Mr. Hassan is a 47-year-old male who I saw in his room this evening. He is a patient of Dr. Galindo, who has been seen and he came in on 06/16/2017 with subarachnoid hem orrhage and developed hydrocephalus. An EVD was then placed and the ventricular hemorrhage has been resolving well. EVD was then removed and [facility] has been managing him medically since that time. Yesterday last evening, he had a small mental status change in which he had trouble with word finding and he was not acting as he normally was and seemed to be decreasing neurologically. A repe at CT scan of the brain was done that showed stable. There was stable compared to the last exam. Be cause of his change in mental status, Neurosurgery was called today to review the CT scan. On exam f rom what has been documented from his previous admission. There are no new neurologic deficits. He has been following commands intermittently and will say some words randomly. Otherwise, there are no new focal motor deficits. He does have a hard time understanding what I am telling him and he only follows some commands that I asked. He will get my arms, my hands, and both upper extremities, and h e will move his legs when I ask him to. He will not stick out his tongue or participate in the crani al nerve exam. It was documented on 06/14/2017 that he was not responding much and was not following commands. I have reviewed the CT scans with Dr. Angelo and Dr. Angelo will see him tomorrow m orning. If there are any further questions, please feel free to contact Neurosurgery.
[2017-07-02] MEDS: Aquaphor 30 GM 99 GM, Cholestyramine/Aspartame 4 GM TOP SCH ×3 (01:17→21:48)
[2017-07-02] MEDS: Labetalol HCl 100 MG/20 ML VIAL SLOW IVP PRN ×2 (03:33→18:05)
[2017-07-02] MEDS: Dextrose 5 %-0.45 % NaCl 1,000 ML IV SCH ×2 (05:41→21:32)
[2017-07-02 05:50] LABS: Anion Gap 12 mmol/L (10-20); BUN (Urea Nitrogen) 35 mg/dL (8.9-20.6); Calc. Creatinine Clearance 146 mL/min (70-130); Calcium 9.7 mg/dL (7.8-10.44); Carbon Dioxide 23 mmol/L (22-29); Chloride 111 mmol/L (98-107); Estimated GFR-MDRD Greater than 90; Glucose 111 mg/dL (70-105); Potassium 4.6 mmol/L (3.5-5.1); Sodium 141 mmol/L (136-145)
[2017-07-02] MEDS: Cefepime 2 GM, Syringe 2.5 ML in Sodium Chloride 0.9% 10 ML SLOW IVP SCH ×2 (09:04→21:30)
[2017-07-02] MEDS: hydrALAZINE 25 MG TAB PO SCH ×3 (09:06→21:45)
--- NOTE | 2017-07-02 09:24 | PRG ---
DATE OF SERVICE: 07/02/2017 SUBJECTIVE: Mr. Hassan is a 47-year-old male who I saw in his room this morning. There are no new neurologic deficits on exam this morning and his vital signs have been stable overnight. The was staying in the room last night and states he was restless all night, trying to itch the left leg as that where he has a pressure wound healing. There are no other acute events all night. A CT scan of the brain has been evaluated and reviewed with Dr. Angelo. We will place a lumbar drain today for enlarged ventricles, obtain CSF cultures and investigate opening pressure. Mr. Hassan will likely need rehab upon discharge. If there are further questions for Neurosurgery, please feel free to contact us. PETER
[2017-07-02 11:10] LABS: INR-International Normal Ratio 1.5; PTT 32.1 SEC (22.9-36.1); Prothrombin Time 18.3 SEC (12.0-14.7)
--- NOTE | 2017-07-02 11:46 | PRG ---
DATE OF SERVICE: 07/02/2017 SUBJECTIVE: I saw Marcos Hassan in the stroke unit this morning. He was admitted 06/14/2017 with subarachnoid hemorrhage. Two consecutive CT angiograms failed to show any aneurysmal source, althoug h the hemorrhage pattern was suspicious for aneurysm. Dr. Johnson, during weekend coverage, placed an external ventricular drain, which was eventually weaned and removed. Mr. Hassan woke to the point that he could be extubated. Dr. Abner Caballero tells me that Mr. Hassan was talking to him after extubation, following commands. When I saw Mr. Hassan this morning, his mental status is not what it was after extubation. He op ens his eyes to voice, but quickly drifts back to a sleeping state. He is purposeful with 4 extremit ies and occasionally follows commands, but loses awareness quickly as he falls back to sleep, his gaz e becomes disconjugate. When he is maintained in awake status, he can align eyes and moves them in a ll directions of primary gaze. The pupils are reactive and I do not see any obvious cranial neuropat hy. Mr. Hassan's mental status change prompted a CT scan showing a slight increase in the size of the t hird and fourth ventricle. No real increase in size of the lateral ventricles and no more blood. I would like to place a lumbar drain. This will give us a chance to see the opening pressure in the CSF compartment to drain some more blood products that are now chronic in the spinal fluid and to sen d a culture for possible meningitis. I hope that the lumbar drain will be temporary, we can wean him off that in the coming days to weeks. While the drain is in place, we used antibiotic coverage. We will start with gentle drainage Peridon 5 mL every 2 hours.
[2017-07-02 13:14] LABS: CSF, Glucose 50 mg/dl (40-70); CSF, Protein 43 mg/dL (15-40)
--- NOTE | 2017-07-02 13:16 | PRG ---
DATE OF SERVICE: 06/30/2017 SUBJECTIVE: The patient is still fairly noncommunicative. He has some twitching on the right side o f his face. OBJECTIVE: VITAL SIGNS: Temperature 97.8, pulse 99, respirations 18, O2 saturation 98% on room air, and blood p ressure 155/94. HEENT: Otherwise unremarkable. NECK: No JVD. LUNGS: Clear. CARDIAC: S1 and S2 regular. ABDOMEN: Soft. EXTREMITIES: No edema. LABORATORY DATA: Sodium 141, potassium 4.6, chloride 111, CO2 of 23, BUN 35, creatinine 0.8, and glu cose 111. ASSESSMENT: 1. Altered mental status. 1. Status post subarachnoid hemorrhage. 2. Malignant hypertension. 3. Improved azotemia. PLAN: Discussed with Dr. Angelo. They will be performing an LP and placing a lumbar drain today. We will see if this will improve his mental status as he was doing fairly well after extubation sev eral days ago.
--- NOTE | 2017-07-02 13:19 | PRG ---
DATE OF SERVICE: 07/02/2017 NEPHROLOGY PROGRESS NOTE SUBJECTIVE: Patient was seen and examined at bedside and overnight events noted. Patient denies any shortness of breath or chest pain or palpitation. No history of nausea or vomiting or diarrhea or f ever or chills or cramps. Very lethargic and family was at bedside. OBJECTIVE: GENERAL: This is an elderly well-built male, very lethargic. VITAL SIGNS: Temperature 97.8, pulse 99, respiratory rate 18, blood pressure 155/94. HEENT: Atraumatic, normocephalic. Oral mucosa is moist. NECK: Supple. CARDIOVASCULAR: S1, S2 heard. Rate and rhythm regular. RESPIRATORY: Clear to auscultation. GASTROINTESTINAL: Abdomen is soft. MUSCULOSKELETAL: No tenderness. No edema. DERMATOLOGIC: No skin rash. NEUROLOGIC: Lethargic. PSYCHIATRIC: Mood and affect normal. LABORATORY DATA: Creatinine 0.89, BUN 35, potassium is 4.6. ASSESSMENT AND PLAN: 1. Acute kidney injury on chronic kidney disease, most likely volume depletion. Creatinine is much better. Agree with holding lisinopril and hydration, especially if he is not having good p.o. intake . 2. Hypertension, stable. 3. Edema, controlled. 4. Substance abuse 5. Recent cerebrovascular accident. 6. Renal function gets back to normal. I will sign off. Please call back with any questions and av oid nephrotoxins.
--- NOTE | 2017-07-02 13:27 | PDOC.PN ---
- Subjective Encounter Start Date: 07/02/17 Encounter Start Time: 13:26 Patient seen and examined, reduced oral intake, no other issues. - Objective Vital Signs & Weight: Vital Signs (12 hours) Temp Pulse Resp BP BP Pulse Ox 07/02/17 13:17 98.6 F 90 18 168/120 H 92 L 07/02/17 09:06 75 07/02/17 08:37 98 07/02/17 08:34 75 12 07/02/17 08:03 97.8 F 99 18 155/94 H 90 L 07/02/17 07:30 97.8 F 99 18 07/02/17 05:00 98.4 F 118 H 22 H 149/104 H 95 07/02/17 03:33 135 H 142/107 H Weight Admit Weight 234 lb 2.095 oz Weight 230 lb 4.8 oz Most Recent Monitor Data Heart Rate from ECG 122 NIBP 129/103 NIBP BP-Mean 113 Respiration from ECG 14 SpO2 72 I&O: 07/01/17 07/02/17 07/03/17 06:59 06:59 06:59 Intake Total 2633 Output Total 1050 1300 Balance 1583 -1300 Result Diagrams: 06/30/17 14:44 07/02/17 05:13 Phys Exam - Physical Examination Constitutional: NAD obese HEENT: PERRLA, moist MMs Neck: no nodes, no JVD Respiratory: no wheezing, no rales, no rhonchi Cardiovascular: RRR, no significant murmur, no rub Gastrointestinal: soft, non-tender, no distention Musculoskeletal: no edema, pulses present Dx/Plan (1) Acute hypoxemic respiratory failure Code(s): J96.01 - ACUTE RESPIRATORY FAILURE WITH HYPOXIA Status: Acute Comment: Extubated successfully 06/23/17 (2) Aspiration pneumonia Code(s): J69.0 - PNEUMONITIS DUE TO INHALATION OF FOOD AND VOMIT Status: Acute (3) NSTEMI (non-ST elevated myocardial infarction) Code(s): I21.4 - NON-ST ELEVATION (NSTEMI) MYOCARDIAL INFARCTION Status: Acute Comment: conservative management per cardiology (4) SAH (subarachnoid hemorrhage) Code(s): I60.9 - NONTRAUMATIC SUBARACHNOID HEMORRHAGE, UNSPECIFIED Status: Acute Comment: s/p EVD per NS.Failed coiling attempt.on Empiric ABX (5) HTN (hypertension) Code(s): I10 - ESSENTIAL (PRIMARY) HYPERTENSION Status: Chronic - Plan * LP for today * will await results * afebrile, vital signs stable * KIMBERLY resolved, WBC up, trend labs for now * continue current plan of care
[2017-07-02 13:30] LABS: CSF Source CSF; Clarity Cloudy/Turbid (Clear); Tube # 2; WBC/NonHematics Count - Manual 68 /cumm (0-5)
--- NOTE | 2017-07-02 14:49 | SPC ---
LUMBAR PUNCTURE WITH FLUOROSCOPY: Date: 07/02/17 HISTORY: Subarachnoid hemorrhage. Evaluate for elevated pressures. COMPARISON: CT brain dated 06/30/17. FINDINGS/TECHNIQUE: Patient brought to fluoroscopy suite. Informed consent was already obtained by the neurosurgery PA. Soraya haynes's back was prepped and draped in the normal sterile fashion. Patient was put in the prone posi tion as the patient was in four point restraints. 3 mL of lidocaine was instilled to superficial and deep soft tissues. Using the neurosurgically provided cannula, the L4-5 interspace was accessed. The thecal sac was accessed. Opening pressure was 38 cm of water. The CSF was blood tinged. Approximately 20 mL of CSF was aspirated. From here, the neurosurgical PA inserted the lumbar drain. The cannula was removed. The patient tolerated the procedure well. IMPRESSION: 1. Technically successful lumbar puncture with removal of 20 mL of CSF. 2. Opening pressure was 38 cm of water. 3. Placement of a lumbar drain by neurosurgical PA. Fluoro Time: 1.1 minutes. Dose: 7461 mGy*cm^2. POS: [facility]
[2017-07-02] MEDS: Vancomycin HCl 1.5 GM in Sodium Chloride 0.9% 250 ML 300 ML IVPB SCH (16:21)
[2017-07-02] MEDS ORDERED: Vancomycin HCl 1 GM in Premix Bag 1 BAG IVPB SCH (21:00)
[2017-07-02] MEDS: Azithromycin 500 MG in Sodium Chloride 0.9% 250 ML 250 ML IVPB SCH (21:30)
[2017-07-02] MEDS: Aquaphor 30 GM 99 GM, Cholestyramine/Aspartame 4 GM TOP PRN (21:31)
[2017-07-02] MEDS: Morphine 4 MG/ML VIAL SLOW IVP PRN (21:32)
[2017-07-03] MEDS: Vancomycin HCl 1.5 GM in Sodium Chloride 0.9% 250 ML 300 ML IVPB SCH ×2 (04:07→15:01)
[2017-07-03 05:18] LABS: #Eosinphils 0.3 thou/uL (0.0-0.7); #Lymphocytes 1.2 thou/uL (1.20-3.40); #Monocytes 1.3 thou/uL (0.11-0.59); %Basophils 0.4 % (0.0-1.0); %Eosinophils 2.3 % (0.0-10.0); %Lymphocytes 11.5 % (21.0-51.0); %Neutrophils 73.8 % (42.0-75.0); Hemoglobin 10.2 g/dL (14.0-18.0); Mean Corpuscular HGB CONC 33.8 g/dL (32.0-36.0); Mean Corpuscular Hemoglobin 33.6 pg (27.0-31.0); Mean Corpuscular Volume 99.5 fl (80.0-94.0); Mean Platelet Volume 8.4 fL (7.4-10.4); Platelet Count 322 thou/uL (130-400); RBC Distribution Width 14.1 % (11.5-14.5); Red Blood Cell (RBC) Count 3.04 mill/uL (4.70-6.10); White Blood Cell (WBC) Count 10.8 thou/uL (4.8-10.8)
[2017-07-03 05:22] LABS: Anion Gap 12 mmol/L (10-20); BUN (Urea Nitrogen) 22 mg/dL (8.9-20.6); Calc. Creatinine Clearance 161 mL/min (70-130); Calcium 9.7 mg/dL (7.8-10.44); Carbon Dioxide 22 mmol/L (22-29); Chloride 113 mmol/L (98-107); Estimated GFR-MDRD Greater than 90; Glucose 102 mg/dL (70-105); Potassium 4.5 mmol/L (3.5-5.1); Sodium 142 mmol/L (136-145)
[2017-07-03] MEDS: Dextrose 5 %-0.45 % NaCl 1,000 ML IV SCH ×2 (07:35→12:35)
--- NOTE | 2017-07-03 07:49 | PRG ---
DATE OF SERVICE: 07/03/2017 Mr. Hassan is a 47-year-old male I saw in his room this morning. He is status post day 1 from a sara mbar drain being placed. He has been draining 5 mL q.2h. This morning he is less neurologically al ert when talking to him than he was after we took 20 mL of CSF off when we put the lumbar drain in. We sent CSF cultures yesterday and the preliminary results showed many white blood cells, many red bl ood cells. There are no organisms seen. Otherwise, there are no new neurologic deficits on exam fro m yesterday. His eyes are alert, he follows some of my commands in the upper extremity, follows it t o a lesser extent on the left side than the right side. He opens his eyes when I talk to him and he follows me around the room. We will continue to watch his neurologic status and continue to wait on results from CSF cultures and gram stains obtain. If there are any further questions, please feel free to contact Neurosurgery.
--- NOTE | 2017-07-03 07:53 | PDOC.PN ---
- Subjective Encounter Start Date: 07/03/17 Encounter Start Time: 07:50 -: non-verbal Subjective: nsg notes rev, chinedu ovn - Objective Vital Signs & Weight: Vital Signs (12 hours) Temp Pulse Resp BP Pulse Ox 07/03/17 06:26 100 07/03/17 06:24 126 H 20 100 07/03/17 03:57 98.2 F 102 H 20 125/85 98 07/03/17 00:47 117 H 20 93 L 07/02/17 23:10 98.7 F 126 H 23 H 114/91 H 98 07/02/17 21:58 126/86 07/02/17 21:45 98 07/02/17 20:05 99 F 98 18 97 07/02/17 19:58 98 18 97 Weight Admit Weight 234 lb 2.095 oz Weight 227 lb 4.8 oz Most Recent Monitor Data Heart Rate from ECG 122 NIBP 129/103 NIBP BP-Mean 113 Respiration from ECG 14 SpO2 72 I&O: 07/02/17 07/03/17 07/04/17 06:59 06:59 06:59 Intake Total 900 Output Total 1300 1290 5 Balance -1300 -390 -5 Result Diagrams: 07/03/17 04:40 07/03/17 04:40 Phys Exam - Physical Examination Constitutional: NAD lying in bed, eyes open, does not consistently follow commands HEENT: PERRLA, moist MMs, sclera anicteric Respiratory: no wheezing, no rales, no rhonchi, clear to auscultation bilateral limited ant exam Cardiovascular: RRR, no significant murmur, no rub Gastrointestinal: soft, no distention, positive bowel sounds Musculoskeletal: no edema, pulses present groans, intermittently tracks visually Dx/Plan - Plan (1) Acute hypoxemic respiratory failure resolved, Extubated successfully 06/23/17 (2) Aspiration pneumonia currently continued aspiration risk speech therapy consulted (3) NSTEMI (non-ST elevated myocardial infarction) continue conservative medical mgmt cont to monitor hemodynamically stable (4) SAH (subarachnoid hemorrhage) s/p EVD per NS.Failed coiling attempt.on Empiric ABX s/p LP KIMBERLY, resolved apprec nephrology c/s continue with gentle IVF
[2017-07-03] MEDS: hydrALAZINE 25 MG TAB PO SCH ×3 (08:15→21:51)
[2017-07-03] MEDS: Cefepime 2 GM, Syringe 2.5 ML in Sodium Chloride 0.9% 10 ML SLOW IVP SCH ×2 (09:06→21:50)
[2017-07-03] MEDS: levETIRAcetam In NaCl (Iso-Os) 1,000 MG in Premix Bag 1 BAG IVPB SCH ×2 (09:08→21:50)
[2017-07-03] MEDS: Aquaphor 30 GM 99 GM, Cholestyramine/Aspartame 4 GM TOP PRN (09:12)
[2017-07-03] MEDS: Aquaphor 30 GM 99 GM, Cholestyramine/Aspartame 4 GM TOP SCH ×2 (09:12→21:57)
--- NOTE | 2017-07-03 09:25 | CT ---
CT BRAIN WITHOUT CONTRAST: Date: 07/03/17 HISTORY: Seizure activity. Ventriculomegaly. COMPARISON: CT brain dated 06/30/17. FINDINGS: The ventricular size continues to be enlarged. There is dilatation of the lateral third and fourth ve ntricle. The intraventricular hemorrhage is similar. Old right catheter track frontal lobe. IMPRESSION: Continued ventriculomegaly with small volume intraventricular hemorrhage. POS: [facility]
[2017-07-03] MEDS: Morphine 4 MG/ML VIAL SLOW IVP PRN ×2 (09:27→21:56)
--- NOTE | 2017-07-03 09:28 | PRG ---
DATE OF SERVICE: 07/03/2017 SUBJECTIVE: I saw Mr. Hassan this morning. Lumbar drain was placed and was draining 5 mL every 2 hours. None of the testing has been remarkable. The glucose was normal. Protein was elevated as ex pected after subarachnoid hemorrhage. The Gram stain was negative. The fluid was blood-tinged, but not purulent. Cultures are pending. When I am seeing Mr. Hassan, he has twitching of the right cheek. It seems to be a very focal venkatesh r seizure. He is purposeful in his upper and lower extremities, but he is not following commands and not responding with any verbal output. I think Mr. 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 I believe this is the reason for his lack of speech and his lack of following commands a nd we are going to start Keppra. We will make sure his laboratory values are not predisposing to sei zure activity and a consultation to Neurology might be worthwhile if the Keppra is ineffective.
[2017-07-03 10:21] LABS: Cell Count Non Hematic 20 %; Lymphocytes 66 %; Segmented Neutrophils 14 %
--- NOTE | 2017-07-03 10:31 | PRG ---
DATE OF SERVICE: 07/03/2017 Mr. Hassan is now following commands and he is actually saying some words that I can understand. PHYSICAL EXAMINATION: VITAL SIGNS: Temperature 98.5, pulse 120, respirations 18, O2 sat 90%, blood pressure 142/89. HEENT: Unremarkable. NECK: No JVD. LUNGS: Clear. CARDIAC: S1 and S2 regular. ABDOMEN: Soft. EXTREMITIES: No edema. LABORATORY DATA: Sodium 142, potassium 4.5, chloride 113, CO2 22, BUN 22, creatinine 0.8, glucose 10 2. White blood cell count 10, hematocrit 30, platelet count 322. ASSESSMENT: 1. Hydrocephalus with increased intracranial pressure - better after lumbar drain insertion yesterda y: 2. Status post acute respiratory failure. 3. Status post subarachnoid hemorrhage. PLAN: Neurologic improvement is encouraging. He is continuing antibiotics for the time being.
--- NOTE | 2017-07-03 11:38 | PRG ---
DATE OF SERVICE: 07/03/2017 SUBJECTIVE: This is a 47-year-old gentleman being seen for acute kidney injury. The patient denies any nausea, vomiting, or chest pain. PHYSICAL EXAMINATION: GENERAL: Patient is awake, alert. VITAL SIGNS: Afebrile, pulse 75, breathing 16, blood pressure 142/89. HEAD/NECK: Normocephalic. Atraumatic. EYES: EOMI. No deformity. EARS: Clear. No ulcers. NOSE: Intact. No lesions. MOUTH: Clear. No discharge. THROAT: Clear. No exudate. LUNGS: Clear. No crackles. CARDIAC: S1, S2. No rub. ABDOMEN: Benign. BS+. GENITALIA/RECTUM: Ta absent. BACK/EXTREMITIES: Edema 0+ Ulcer- NEUROLOGICAL: Alert and motor intact. SKIN: Rash- Bruise- LYMPHATICS: Edema- Ulcer- LABORATORY DATA: Show creatinine 0.83. ASSESSMENT AND PLAN: 1. Acute kidney injury, improved. 2. Hypertension, stable. 3. Anemia, stable. 4. Medications based on glomerular filtration rate are appropriate. I will sign off on this patient . Please reconsult as needed.
--- NOTE | 2017-07-03 15:10 | RAD ---
ABDOMEN 1 VIEW: HISTORY: Feeding tube placement. FINDINGS: The bowel gas pattern is nonspecific. Catheter coiled over the left upper quadrant has the appearanc e of a Dobbhoff feeding catheter. Metallic tip overlies the gastric fundus. IMPRESSION: Metallic clip of the Dobbhoff feeding catheter overlies the gastric fundus. POS: [facility]
[2017-07-03] MEDS: Azithromycin 500 MG in Sodium Chloride 0.9% 250 ML 250 ML IVPB SCH (18:59)
[2017-07-04 02:15] LABS: Vancomycin, Trough 17.3 ug/mL
[2017-07-04] MEDS: Vancomycin HCl 1.5 GM in Sodium Chloride 0.9% 250 ML 300 ML IVPB SCH ×2 (03:14→15:52)
[2017-07-04] MEDS: Dextrose 5 %-0.45 % NaCl 1,000 ML IV SCH ×3 (03:15→23:13)
[2017-07-04 06:06] LABS: Anion Gap 14 mmol/L (10-20); BUN (Urea Nitrogen) 18 mg/dL (8.9-20.6); Calc. Creatinine Clearance 174 mL/min (70-130); Calcium 9.7 mg/dL (7.8-10.44); Carbon Dioxide 20 mmol/L (22-29); Chloride 112 mmol/L (98-107); Estimated GFR-MDRD Greater than 90; Glucose 114 mg/dL (70-105); Potassium 4.2 mmol/L (3.5-5.1); Sodium 142 mmol/L (136-145)
--- NOTE | 2017-07-04 07:05 | PRG ---
DATE OF SERVICE: 07/04/2017 I saw Marcos Hassan this morning. By report, his examination had improved yesterday afternoon, is speaking and following commands. However, when I see him this morning, he looks at me, he gives a sl ightly better recognition and tracking this morning. He seems to engage with a gaze directed in his direction and he is purposeful especially with the right upper extremity. However, he is not speakin g to me and he is not following commands for me this morning. He looks a bit tired and he drifts mika k to sleep. I think his Keppra level is likely a bit high as I started him on a higher dose to get h is focal motor seizures to stop. I do not see any right facial twitching this morning and because I do not see that, I am going to go back down to 500 b.i.d. and the Keppra. Hopefully, we can keep the seizures at bay and increase his alertness. For the next 2-3 days we will continue the lumbar drainage, we may continue it through the weekend an d then clamp his drain next week.
--- NOTE | 2017-07-04 07:29 | PRG ---
DATE OF SERVICE: 07/04/2017 Mr. Hsasan is a 47-year-old male who I saw in his room this morning. Overnight, there have been no acute events. We have been draining 5 mL of CSF every 2 hours from the lumbar drain. The CSF for s tudishruti are clear. He is not having any signs of focal seizures this morning. Keppra was started yes terday and from that point forward there have been no reported seizures. He will likely need rehab, as we look for rehab and make sure that the fracture of his brain is stabilized by the lumbar drain. Keppra does have the chance of making him somewhat tired and he looks a little bit tired this mornin g, but we can adjust his Keppra to 500 mg p.o. b.i.d. We will begin clamping the lumbar drain next w tyonek to see if the pressure builds back up in the ventricles. If there are any further questions, please feel free to contact Neurosurgery.
--- NOTE | 2017-07-04 07:52 | PDOC.PN ---
- Subjective Encounter Start Date: 07/04/17 Encounter Start Time: 07:51 -: non-verbal Subjective: nsg notes rev, chinedu ovn, dobhoff placed yday and TF started w/o difficulty -: pt asleep but arousable - makes appropriate eye contact, no words, does not -: appropriately follow commands - Objective Vital Signs & Weight: Vital Signs (12 hours) Temp Pulse Resp BP BP Pulse Ox 07/04/17 07:35 98.3 F 100 18 143/105 H 99 07/04/17 07:30 98.3 F 100 18 07/04/17 07:27 119 H 20 98 07/04/17 04:00 98.4 F 18 159/98 H 97 07/04/17 00:17 98.0 F 98 18 142/87 H 97 07/03/17 23:33 117 H 20 98 07/03/17 21:51 115 H 07/03/17 21:38 98.2 F 115 H 20 129/79 96 07/03/17 20:32 98.2 F 117 H 20 Weight Admit Weight 234 lb 2.095 oz Weight 228 lb 1.6 oz Most Recent Monitor Data Heart Rate from ECG 122 NIBP 129/103 NIBP BP-Mean 113 Respiration from ECG 14 SpO2 72 I&O: 07/03/17 07/04/17 07/05/17 06:59 06:59 06:59 Intake Total 900 1340 1862 Output Total 4318 254 4714 Balance -390 480 767 Result Diagrams: 07/03/17 04:40 07/04/17 01:48 Phys Exam - Physical Examination Constitutional: NAD lying in hospital bed HEENT: sclera anicteric, oral pharynx no lesions NGT in place Neck: no nodes Respiratory: no wheezing, no rales, no rhonchi, clear to auscultation bilateral limited ant exam and limited active participation in physical exam Cardiovascular: RRR, no significant murmur, no rub Gastrointestinal: soft, no distention, positive bowel sounds Musculoskeletal: pulses present b/l trace to 1+ pitting pedal edema Dx/Plan - Plan (1) Acute hypoxemic respiratory failure resolved, Extubated successfully 06/23/17 currently on RA (2) Aspiration pneumonia currently continued aspiration risk speech therapy consulted NGT for TF at this point in time, continue to re-assess aspiration risk (3) NSTEMI (non-ST elevated myocardial infarction) continue conservative medical mgmt cont to monitor hemodynamically stable (4) SAH (subarachnoid hemorrhage) s/p EVD per NS.Failed coiling attempt.on Empiric ABX s/p LP KIMBERLY, resolved apprec nephrology c/s continue with gentle IVF diet: TF activity: bedbound dvt ppx Review of Systems - Medications/Allergies Allergies/Adverse Reactions: Allergies Allergy/AdvReac Type Severity Reaction Status Date / Time ibuprofen Allergy Verified 07/02/17 09:00 Medications: Current Medications Albuterol/Ipratropium (Duoneb) 3 ml NEB [id number] [place] Last Admin: 07/04/17 07:27 Dose: 3 ml Mineral Oil/White Petrolatum 99 gm/ Cholestyramine Resin 4 gm 0 gm TOP BID [place] Last Admin: 07/03/17 21:57 Dose: 1 top Mineral Oil/White Petrolatum 99 gm/ Cholestyramine Resin 4 gm 0 gm TOP PRN PRN PRN Reason: WOUND CARE Last Admin: 07/03/17 09:12 Dose: 1 top Diphenhydramine HCl (Benadryl) 50 mg IVP Q6H PRN PRN Reason: Itching Last Admin: 07/02/17 01:43 Dose: 50 mg Hydralazine HCl (Apresoline) 20 mg SLOW IVP Q4H PRN PRN Reason: Hypertension Last Admin: 06/26/17 13:37 Dose: 20 mg Hydralazine HCl (Apresoline) 50 mg PO TID [facility] Last Admin: 07/03/17 21:51 Dose: Not Given Potassium Chloride 40 meq/ (Sodium Chloride) 270 mls @ 135 mls/hr IVPB ASDIR PRN PRN Reason: FOR SERUM K+ 2.5 - 3.5 Potassium Chloride 40 meq/ (Device) 100 mls @ 50 mls/hr IVPB ASDIR PRN PRN Reason: FOR SERUM K+ 2.5 - 3.5 Magnesium Sulfate 1 gm/ Sodium (Chloride) 102 mls @ 102 mls/hr IV PRN PRN PRN Reason: MAG LEVEL 1.4 - 2.0 Magnesium Sulfate 2 gm/ Device 100 mls @ 100 mls/hr IVPB ASDIR PRN PRN Reason: MAGNESIUM < 1.4 Potassium Phosphate 9 mmol/ (Sodium Chloride) 103 mls @ 25.75 mls/hr IVPB ASDIR PRN PRN Reason: Phosphate 1.0-1.8 Potassium Phosphate 12 mmol/ (Sodium Chloride) 254 mls @ 63.5 mls/hr IV ASDIR PRN PRN Reason: Serum phosphate 0.5-0.9 Potassium Phosphate 15 mmol/ (Sodium Chloride) 255 mls @ 63.75 mls/hr IV ASDIR PRN PRN Reason: Serum Phos < 0.5 Dextrose/Sodium Chloride (D5 1/2 Ns) 1,000 mls @ 100 mls/hr IV .Q10H [facility] Last Admin: 07/04/17 03:15 Dose: 1,000 mls Azithromycin 500 mg/ Sodium (Chloride) 250 mls @ 250 mls/hr IVPB 1900 [facility] Last Admin: 07/03/17 18:59 Dose: 250 mls Cefepime HCl 2 gm/ Syringe 2.5 (ml/ Sodium Chloride) 12.5 mls @ 150 mls/hr SLOW IVP 0900,2100 [facility] Last Admin: 07/03/17 21:50 Dose: 12.5 mls Vancomycin HCl 1.5 gm/ Sodium (Chloride) 300 mls @ 200 mls/hr IVPB 0300,1500 [facility] Stop: 07/07/17 04:29 Last Admin: 07/04/17 03:14 Dose: 300 mls Levetiracetam 1,000 mg/ Device 100 mls @ 200 mls/hr IVPB BID [facility] Last Admin: 07/03/17 21:50 Dose: 100 mls Labetalol HCl (Normodyne) 10 mg SLOW IVP Q10MIN PRN PRN Reason: SBP > 140, HR > 70 Last Admin: 07/02/17 18:05 Dose: 10 mg Magnesium Oxide (Magnesium Oxide) 400 mg PO BIDPRN PRN PRN Reason: FOR SERUM MAG 1.4 - 2.0 Magnesium Oxide (Magnesium Oxide) 800 mg PO PRN PRN PRN Reason: FOR SERUM MAG < 1.4 Miscellaneous Medication (Phos-Nak) 1 pkt PO TIDPRN PRN PRN Reason: FOR PHOS LEVEL 1.0 - 1.8 Miscellaneous Medication (Phos-Nak) 2 pkt PO TIDPRN PRN PRN Reason: FOR PHOS LEVEL 0.5 - 1.0 Morphine Sulfate (Morphine) 2 mg SLOW IVP Q4H PRN PRN Reason: PAIN 7-10 Last Admin: 07/03/17 21:56 Dose: 2 mg Pantoprazole Sodium (Protonix) 40 mg PO DAILY [facility] Last Admin: 07/03/17 08:15 Dose: Not Given Potassium Chloride (K-Dur) 40 meq PO ASDIR PRN PRN Reason: FOR SERUM K+ 2.5 - 3.5 Last Admin: 06/25/17 04:22 Dose: 40 meq Potassium Chloride (Klor-Con) 40 meq PER TUBE ASDIR PRN PRN Reason: FOR SERUM K+ 2.5-3.5 Last Admin: 06/27/17 06:53 Dose: 40 meq Promethazine HCl (Phenergan) 25 mg IM Q4H PRN PRN Reason: Nausea/Vomiting Sodium Chloride (Flush - Normal Saline) 10 ml IVF Q12HR [place] Last Admin: 07/03/17 21:58 Dose: Not Given Sodium Chloride (Flush - Normal Saline) 10 ml IVF PRN PRN PRN Reason: Saline Flush Last Admin: 06/28/17 08:49 Dose: 10 ml
[2017-07-04] MEDS: hydrALAZINE 25 MG TAB PO SCH ×3 (09:05→21:27)
[2017-07-04] MEDS: Aquaphor 30 GM 99 GM, Cholestyramine/Aspartame 4 GM TOP PRN (09:11)
[2017-07-04] MEDS: Aquaphor 30 GM 99 GM, Cholestyramine/Aspartame 4 GM TOP SCH ×2 (09:12→21:28)
[2017-07-04] MEDS: levETIRAcetam In NaCl (Iso-Os) 1,000 MG in Premix Bag 1 BAG IVPB SCH (09:21)
[2017-07-04] MEDS: Cefepime 2 GM, Syringe 2.5 ML in Sodium Chloride 0.9% 10 ML SLOW IVP SCH ×2 (09:21→21:27)
--- NOTE | 2017-07-04 09:32 | PRG ---
DATE OF SERVICE: 07/04/2017 He is much more somnolent compared to yesterday. PHYSICAL EXAMINATION: VITAL SIGNS: Temperature 99.3, pulse 100, respirations 18, O2 sat 99%, blood pressure 143/105. His ICP looks to be about 24. HEENT: He tracks with his eyes, but is not following any commands. CARDIAC: S1 and S2 regular. LUNGS: Clear. ABDOMEN: Soft. EXTREMITIES: No edema. LABORATORY DATA: Sodium 142, potassium 4.2, chloride 112, CO2 20, BUN 18, creatinine 0.7, glucose 11 4. ASSESSMENT: 1. Subarachnoid hemorrhage. 2. Focal seizures. 3. Hydrocephalus. 4. Status post acute respiratory failure. PLAN: For the time being, he is continuing antibiotics. Lumbar drainage seems to have helped his me ntal status somewhat. He is being fed enterally. We will follow distantly.
[2017-07-04] MEDS: Azithromycin 500 MG in Sodium Chloride 0.9% 250 ML 250 ML IVPB SCH (20:04)
[2017-07-04] MEDS: Acetaminophen 650 MG/20.3 ML UDCUP PER TUBE PRN (23:02)
[2017-07-05] MEDS: Labetalol HCl 100 MG/20 ML VIAL SLOW IVP PRN ×4 (00:19→14:52)
[2017-07-05] MEDS: Vancomycin HCl 1.5 GM in Sodium Chloride 0.9% 250 ML 300 ML IVPB SCH ×2 (04:15→15:01)
[2017-07-05 06:17] LABS: Anion Gap 12 mmol/L (10-20); BUN (Urea Nitrogen) 17 mg/dL (8.9-20.6); Calc. Creatinine Clearance 189 mL/min (70-130); Calcium 9.4 mg/dL (7.8-10.44); Carbon Dioxide 20 mmol/L (22-29); Chloride 109 mmol/L (98-107); Estimated GFR-MDRD Greater than 90; Glucose 111 mg/dL (70-105); Potassium 4.6 mmol/L (3.5-5.1); Sodium 136 mmol/L (136-145)
--- NOTE | 2017-07-05 07:41 | PRG ---
DATE OF SERVICE: 07/05/2017 SUBJECTIVE: Mr. Hassan I saw in his room this morning on the stroke unit. His neurologic exam con tinues similar to yesterday as he is unable to respond to me. He follows commands in his upper right extremity; however, I cannot get him to grasp my hand on the upper left extremity. He opens his eye s to my voice. His eyes track, but he does not follow any commands. Mr. Hassan's lumbar drain is still in place and he is on antibiotics. A lumbar drain is still draining at 5 mL an hour every [address] scan was done this morning that continues to show a small amount of blood in the vent ricle, otherwise stable. There are no new neurologic deficits on exam this morning. Microbiology re sults of the lumbar spinal fluid culture has resulted and showed no growth. The patient can continue to work with physical therapy, occupational therapy, and will likely need rehab on discharge. If th ere are any further questions, please feel free to contact Neurosurgery.
--- NOTE | 2017-07-05 09:26 | PRG ---
DATE OF SERVICE: 07/05/2017 I saw Mr. Hassan in his hospital room this morning. Yesterday, I felt his examination was stable f rom previous days, but I am more encouraged today. We decreased the dose of Keppra from 1000 b.i.d. to 500 b.i.d. yesterday. When I come into his hospital room this morning he is being cleaned by the nursing staff. As I talked to him he tries to respond, he is making noises now which is an improveme nt as far as my examination is concerned. He is purposeful with both upper extremities and his right lower extremity is a little slower than the left lower extremity. The fact that he can follow comma nds and lift his thumb is a clear improvement. I think controlling the seizure and releasing some pressure of CSF space has resulted in improvement. I am not sure which of the two interventions provided the most improvement. I suspect it was a com bination thereof. We are going to continue the Keppra therapy and lumbar drainage. Keppra will nick in on for at least 2 months, the lumbar drainage for the next few days and then be clamped over the w eekend. If he remains neurologically stable then it can be removed.
--- NOTE | 2017-07-05 09:40 | CT ---
PRELIMINARY REPORT/[facility]/EMERGENTY AFTER-HOURS PROCEDURE CT Head Without Intravenous Contrast EXAM DATE/TIME: 07/05/2017 6:03 AM CLINICAL HISTORY: 47 years old, male; Signs and symptoms; Other: F/u bleed; Patient HX: PT has HX of bleed due to HTN TECHNIQUE: Axial computed tomography images of the head/brain without intravenous contrast. COMPARISON: CT Brain WO Con 2017-07-03 08:43 FINDINGS: Brain: There has been no significant change since previous exam. Again noted is residual hemorrhage l ayering in the occipital horns of the lateral ventricles with hydrocephalus that is not significantly changed since the most recent exam from 07/03/2017 but is more dilated than the exam dated 06/25/2017. Bones/joints: Right frontal liza hole with underlying right frontal edema along the path of the previ ously identified ventriculostomy catheter. Sinuses: Normal as visualized. No acute sinusitis. Mastoid air cells: Normal as visualized. No mastoid effusion. IMPRESSION: 1. There has been no significant change since previous exam. Again noted is residual hemorrhage layer ing in the occipital horns of the lateral ventricles with hydrocephalus that is not significantly gonzález nged since the most recent exam from 07/03/2017 but is more dilated than the exam dated 06/25/2017. 2. Right frontal liza hole with underlying right frontal edema along the path of the previously ident ified ventriculostomy catheter. Thank you for allowing us to participate in the care of your patient. Dictated and Authenticated by: Daya Cuevas MD 07/05/2017 7:33 AM Central Time ([place] & [place]) CT BRAIN WITHOUT CONTRAST: History: Intracranial hemorrhage. Comparison: 07-03-17 FINDINGS: A catheter is partially seen in the nasal pharynx. Intraventricular hemorrhage has not significantly worsened. No new intraparenchymal hemorrhage. Right frontal catheter tract. IMPRESSION: No significant worsening of the ventriculomegaly. Intraventricular hemorrhage is similar. CODE: QA POS: TPC
[2017-07-05] MEDS: Dextrose 5 %-0.45 % NaCl 1,000 ML IV SCH ×2 (09:44→23:44)
[2017-07-05] MEDS: Cefepime 2 GM, Syringe 2.5 ML in Sodium Chloride 0.9% 10 ML SLOW IVP SCH ×2 (10:05→23:45)
[2017-07-05] MEDS: hydrALAZINE 25 MG TAB PO SCH ×4 (10:05→23:32)
[2017-07-05] MEDS: Aquaphor 30 GM 99 GM, Cholestyramine/Aspartame 4 GM TOP SCH (10:06)
[2017-07-05 10:24] LABS: Renin Activity 1.084 ng/mL/hr (0.167-5.380)
[2017-07-05] MEDS ORDERED: ISOVUE-370 76%-LOCM 1 ML ONE (15:08)
[2017-07-05] MEDS: Carvedilol 3.125 MG TAB PO SCH (18:02)
[2017-07-05] MEDS: Azithromycin 500 MG in Sodium Chloride 0.9% 250 ML 250 ML IVPB SCH ×2 (18:02→18:07)
--- NOTE | 2017-07-05 18:12 | ULT ---
BILATERAL LOWER EXTREMITY VENOUS DUPLEX SONOGRAM 07/05/17 HISTORY: Bilateral leg pain and edema. FINDINGS: There is incomplete compression with some internal echoes associated with each common femoral and fem oral vein and the right deep femoral vein. Good color and spectral doppler flow are present within ea ch popliteal and posterior tibial vein. IMPRESSION: Incompletely occlusive thrombus involving each lower extremity, primarily the common femoral and femo ral veins. Findings were called to Zenaida, the patient's nurse, at 1705 hours. Code CR POS: ALPHONSO
--- NOTE | 2017-07-05 22:22 | PDOC.PN ---
- Subjective Encounter Start Date: 07/05/17 Encounter Start Time: 17:00 -: non-verbal Subjective: nsg notes rev, chinedu ovn - Objective Vital Signs & Weight: Vital Signs (12 hours) Temp Pulse Pulse Pulse Resp BP BP 07/05/17 18:23 98 16 07/05/17 16:00 98.1 F 106 H 18 07/05/17 14:04 107 H 105 H 125/107 H 143/102 H 07/05/17 13:12 104 H 16 07/05/17 11:26 98.5 F 124 H 20 BP Pulse Ox 07/05/17 18:23 96 07/05/17 16:00 137/86 96 07/05/17 14:04 07/05/17 13:12 07/05/17 11:26 143/107 H 100 Weight Admit Weight 234 lb 2.095 oz Weight 232 lb 1.6 oz Most Recent Monitor Data Heart Rate from ECG 122 NIBP 129/103 NIBP BP-Mean 113 Respiration from ECG 14 SpO2 72 I&O: 07/04/17 07/05/17 07/06/17 06:59 06:59 06:59 Intake Total 1340 3173 4046 Output Total 860 2000 2470 Balance 480 1173 1576 Result Diagrams: 07/06/17 18:17 07/06/17 05:21 Phys Exam - Physical Examination Constitutional: NAD lying in hospital bed, restraints in place HEENT: sclera anicteric, oral pharynx no lesions slightly dry mm NGT in place Respiratory: no wheezing, no rales, no rhonchi, clear to auscultation bilateral limited anterior exam, limited pt participation Cardiovascular: RRR, no significant murmur, no rub Gastrointestinal: soft, no distention, positive bowel sounds Musculoskeletal: pulses present Dx/Plan - Plan (1) Acute hypoxemic respiratory failure resolved, Extubated successfully 06/23/17 currently on RA (2) Aspiration pneumonia currently continued aspiration risk speech therapy consulted NGT for TF at this point in time, continue to re-assess aspiration risk (3) NSTEMI (non-ST elevated myocardial infarction) continue conservative medical mgmt cont to monitor hemodynamically stable (4) SAH (subarachnoid hemorrhage) s/p EVD per NS.Failed coiling attempt.on Empiric ABX s/p LP KIMBERLY, resolved apprec nephrology c/s b/l DVT noted on b/l LE u/s check CTA to eval for PE - if no PE, t/c IVC filter start heparin 5000U BID - intentional low dose given SAH above d/w Dr. Angelo Tachycardia and hypertension prn labetalol low dose carvedilol 3.125mg and monitor diet: TF activity: bedbound dvt ppx Review of Systems - Review of Systems Constitutional: sweats - Medications/Allergies Allergies/Adverse Reactions: Allergies Allergy/AdvReac Type Severity Reaction Status Date / Time ibuprofen Allergy Verified 07/02/17 09:00 Medications: Current Medications Acetaminophen (Tylenol Elixir) 650 mg PER TUBE Q4H PRN PRN Reason: Fever Last Admin: 07/04/17 23:02 Dose: 650 mg Albuterol/Ipratropium (Duoneb) 3 ml NEB [id number] [facility] Last Admin: 07/05/17 18:23 Dose: 3 ml Carvedilol (Coreg) 3.125 mg PO BID-WM [facility] Last Admin: 07/05/17 18:02 Dose: 3.125 mg Mineral Oil/White Petrolatum 99 gm/ Cholestyramine Resin 4 gm 0 gm TOP BID [place] Last Admin: 07/05/17 10:06 Dose: 1 top Mineral Oil/White Petrolatum 99 gm/ Cholestyramine Resin 4 gm 0 gm TOP PRN PRN PRN Reason: WOUND CARE Last Admin: 07/04/17 09:11 Dose: 1 top Diphenhydramine HCl (Benadryl) 50 mg IVP Q6H PRN PRN Reason: Itching Last Admin: 07/02/17 01:43 Dose: 50 mg Heparin Sodium (Porcine) (Heparin) 5,000 units SC BID [facility] Hydralazine HCl (Apresoline) 20 mg SLOW IVP Q4H PRN PRN Reason: Hypertension Last Admin: 06/26/17 13:37 Dose: 20 mg Hydralazine HCl (Apresoline) 50 mg PO TID [facility] Last Admin: 07/05/17 15:01 Dose: Not Given Dextrose/Sodium Chloride (D5 1/2 Ns) 1,000 mls @ 100 mls/hr IV .Q10H [place] Last Admin: 07/05/17 09:44 Dose: 1,000 mls Azithromycin 500 mg/ Sodium (Chloride) 250 mls @ 250 mls/hr IVPB 1900 [facility] Last Admin: 07/05/17 18:07 Dose: 250 mls Cefepime HCl 2 gm/ Syringe 2.5 (ml/ Sodium Chloride) 12.5 mls @ 150 mls/hr SLOW IVP 0900,2100 [facility] Last Admin: 07/05/17 10:05 Dose: 12.5 mls Vancomycin HCl 1.5 gm/ Sodium (Chloride) 300 mls @ 200 mls/hr IVPB 0300,1500 [facility] Stop: 07/07/17 04:29 Last Admin: 07/05/17 15:01 Dose: 300 mls Levetiracetam 500 mg/ Device 100 mls @ 200 mls/hr IVPB BID [facility] Last Admin: 07/05/17 09:46 Dose: 100 mls Labetalol HCl (Normodyne) 10 mg SLOW IVP Q10MIN PRN PRN Reason: SBP > 140, HR > 70 Last Admin: 07/05/17 14:52 Dose: 2 ml Morphine Sulfate (Morphine) 2 mg SLOW IVP Q4H PRN PRN Reason: PAIN 7-10 Last Admin: 07/03/17 21:56 Dose: 2 mg Pantoprazole Sodium (Protonix) 40 mg PO DAILY [facility] Last Admin: 07/05/17 10:05 Dose: 40 mg Promethazine HCl (Phenergan) 25 mg IM Q4H PRN PRN Reason: Nausea/Vomiting Sodium Chloride (Flush - Normal Saline) 10 ml IVF Q12HR [facility] Last Admin: 07/05/17 10:06 Dose: Not Given Sodium Chloride (Flush - Normal Saline) 10 ml IVF PRN PRN PRN Reason: Saline Flush Last Admin: 06/28/17 08:49 Dose: 10 ml
--- NOTE | 2017-07-05 23:14 | CT ---
CT ANGIOGRAM OF THE CHEST: 07/05/17 HISTORY: Tachycardia. Known DVT. COMPARISON: None. TECHNIQUE: CT angiogram of the chest is performed in the axial plane. Three dimensional reformatted images are s ubmitted for interpretation. FINDINGS: trachea and central bronchi are patent. There are patchy interstitial opacities throughout the lung p arenchyma with more focal alveolar infiltrates involving both lower lobes. The largest focus of opaci fication is in the posterior segment of the right lower lobe, measuring 3.1 x 1.8 cm. This opacity gutierrez s a triangular shape and is compatible with an area of parenchymal infarction. No pleural effusion or pneumothorax. The visualized upper solid organs are unremarkable. No mediastinal mass, lymphadenopathy or hematoma. Heart size is within normal limits. No pericardial effusion. The thoracic aorta and upper abdominal aorta have a normal caliber. No periaortic fat stran ding. There is a saddle embolism involving the left and right central pulmonary arteries. Embolism extends into the lobar and segmental branches in the left upper lobe, segmental branches in the left lower lo be, segmental and subsegmental branches in the right lower lobe and middle lobe. IMPRESSION: 1. Multifocal pulmonary artery emboli. 2. Pulmonary infarct involving the right lower lobe. 3. Results of the study discussed with charge nurse, Raven 07/05/17 at 11:04 p.m. Code SEFERINO POS: ALPHONSO
[2017-07-05] MEDS: Aquaphor 30 GM 99 GM, Cholestyramine/Aspartame 4 GM TOP PRN (23:49)
[2017-07-05] MEDS: Heparin 5,000 UNITS/ML VIAL SC SCH (23:52)
[2017-07-06] MEDS: Vancomycin HCl 1.5 GM in Sodium Chloride 0.9% 250 ML 300 ML IVPB SCH ×2 (03:03→13:55)
[2017-07-06] MEDS: Aquaphor 30 GM 99 GM, Cholestyramine/Aspartame 4 GM TOP PRN ×3 (03:04→09:10)
[2017-07-06] MEDS: Aquaphor 30 GM 99 GM, Cholestyramine/Aspartame 4 GM TOP SCH ×3 (03:06→23:00)
[2017-07-06] MEDS: Dextrose 5 %-0.45 % NaCl 1,000 ML IV SCH ×2 (04:34→13:58)
[2017-07-06 06:15] LABS: Anion Gap 12 mmol/L (10-20); BUN (Urea Nitrogen) 14 mg/dL (8.9-20.6); Calc. Creatinine Clearance 188 mL/min (70-130); Calcium 9.4 mg/dL (7.8-10.44); Carbon Dioxide 21 mmol/L (22-29); Chloride 107 mmol/L (98-107); Estimated GFR-MDRD Greater than 90; Glucose 88 mg/dL (70-105); Potassium 4.3 mmol/L (3.5-5.1); Sodium 136 mmol/L (136-145)
[2017-07-06] MEDS: Heparin 5,000 UNITS/ML VIAL SC SCH (07:25)
--- NOTE | 2017-07-06 07:28 | PRG ---
DATE OF SERVICE: 07/06/2017 I saw Mr. Hassan in his hospital room this morning. Yesterday, we discovered bilateral DVTs and a CT angiogram of the chest showed a saddle pulmonary embolus was some distal micro emboli. This morning, Mr. Hassan is as alert as he was yesterday. He is trying to make words with his mout h. He is moving all 4 extremities, although the left lower extremity is the slowest. He does follow commands. CSF drainage continues. I reviewed the imaging studies and the findings are as above. We were reconsulted on the care of Mr. Marcos Hassan this week for a decrease in his mental status. There are 3 possibilities for that decreased mental status. 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 His vent ricles were only slightly bigger than they were before, but hydrocephalus could have played a part, a lumbar drain was placed. Finally, we have now discovered that he has had a pulmonary embolus at tj e point. Because of no significant change in his vital signs recently I suspect this plate some part in the change of mental status as well and that parts of the emboli have dissolved on their own. Mr. Hassan is at risk for more pulmonary emboli. Anticoagulation will be the eventual goal, but th ere is a couple things to do first. Will remove the lumbar drain today. We should hold off on any Lovenox until the drain is out. After the drain comes out, prophylactic dose of Lovenox can be used for 24 hours. We will get a CT angiog luis f today of the brain. I want to make sure that an aneurysm is not visible now, it is unsecured and a subarachnoid hemorrhage a month ago, then we will talk to Dr. Johnson about endovascular coiling. N o aneurysm was discovered previously. Finally, my recommendation for anticoagulation in the first few days is heparin and my choice of hepa rin is because it can be titrated slowly up to a therapeutic range with an APTT of 50-70 without wide swings in the anticoagulation status and it is quite reversible by either turning it off or administ ering protamine.
--- NOTE | 2017-07-06 07:55 | RAD ---
ABDOMEN 1 VIEW: Date: 07/06/17 HISTORY: 47-year-old male with history of feeding tube placement, for localization. FINDINGS: Dobbhoff feeding tube is noted in place with the tip in the region of the body of the stomach. No kehinde dence for overt bowel obstruction. IMPRESSION: Dobbhoff feeding tube with tip in the region of the body of the stomach. POS: OFF
--- NOTE | 2017-07-06 08:05 | PRG ---
DATE OF SERVICE: 07/06/2017 Mr. Hassan is a 47-year-old male, who I saw in his room this morning. We have been following Mr. Demian morales status post subarachnoid hemorrhage and a lumbar drain has been placed. CSF fluid cultures, I have results, that showed no growth. Mr. Hassan has had bilateral saddle pulmonary embolism, whi ch best therapy is anticoagulation at this point. We are going to hold the anticoagulation until te roximately noon today, until ID see the lumbar drain and then we can resume with coagulation. Vital signs have been stable overnight. His neurological exam is stable and there are no new neurologic de ficits. He still does not follow commands in the left upper extremity or bilateral lower extremities . On the right upper extremity, he is able to grasp my hand. He is able to open his eyes when I rolando ked to him and he tracks me around the room. Venogram yesterday shows incomplete occlusive thrombus involving each lower extremity, primarily in the common femoral and femoral veins. This afternoon, w e will discontinue the lumbar drain, and at that time, we can discontinue antibiotics as well. If th ere are any further questions, please feel free to contact Neurosurgery.
[2017-07-06] MEDS ORDERED: Enoxaparin Sodium 30 MG/0.3 ML SYRINGE SC SCH (09:00)
[2017-07-06] MEDS: Cefepime 2 GM, Syringe 2.5 ML in Sodium Chloride 0.9% 10 ML SLOW IVP SCH ×2 (09:07→22:59)
[2017-07-06] MEDS: Carvedilol 3.125 MG TAB PO SCH ×2 (09:09→16:53)
[2017-07-06] MEDS: hydrALAZINE 25 MG TAB PO SCH ×3 (09:09→22:55)
[2017-07-06] MEDS: Acetaminophen 650 MG/20.3 ML UDCUP PER TUBE PRN ×2 (09:11→16:53)
--- NOTE | 2017-07-06 12:07 | CT ---
NONCONTRAST CT HEAD: CT ANGIOGRAM HEAD WITH IV CONTRAST AND 3D RECONSTRUCTION: 07/06/2017 HISTORY: Subarachnoid hemorrhage. COMPARISON: 07/05/2017 FINDINGS: CT HEAD: Again noted is a tiny amount of subarachnoid hemorrhage, layering dependently within the oc cipital horns of each lateral ventricle, which has not progressed and is minimally improved from prio r exam. There is stable mild dilatation of the ventricular system. No new areas of intraparenchymal or extraaxial hemorrhage are seen on this exam. Stable area of encephalomalacia in the right anterior frontal region is again present, which is likel y related to a prior ventriculostomy tract. Skin clips overly the scalp in this region. There is no evidence of an acute cortical infarction, new area of hemorrhage, mass effect, or midline shift. No other interval change. Nasogastric tube is noted in place. CT ANGIOGRAM: There is a small, approximately 3 mm aneurysm at the right PCOM position, with the ane urysm at the junction of the origin of the PCOM artery and the supraclinoid right internal carotid ar molly, with the aneurysm projecting posteriorly and inferiorly. This aneurysm appears slightly bilobe d. No additional aneurysm is appreciated within the limitations of the technique of this exam. There is motion at the base of the brain, limiting evaluation of the internal carotid arteries and ve rtebral arteries, but the bilateral internal carotid arteries do appear patent. The distal vertebral arteries are codominant. The bilateral middle cerebral, anterior cerebral, and posterior cerebral, as well as basilar arteries , are patent. No focal stenosis or branch occlusion is appreciated. There is suggestion of mild ath erosclerotic disease involving the A1 segment of the left middle cerebral artery; however, some of th is appearance may be related to slice selection. Nasogastric tube is noted in place, as described above. IMPRESSION: 1. Minimal improvement in intraventricular hemorrhage, with stable dilatation of the ventricular sys tem. No new areas of hemorrhage are identified. 2. 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 No additional aneurysm is seen within the limitations of the technique o f this exam. 3. Mild atherosclerotic irregularity involving the M1 segment of the left middle cerebral artery. T here is otherwise no focal stenosis or branch occlusion involving the [place] or the vertebr obasilar arteries. 4. CTA exam was performed on 06/14/2017 but, due to the artifact through the region of the posterior communicating artery, the aneurysm was less well delineated on that prior exam. The above findings were discussed with Julien Roche on 07/06/2017 at 1121 hours. CODE CR POS: ALPHONSO
[2017-07-06] MEDS ORDERED: Iopamidol 370 76% 100 ML VIAL ONE (13:34)
--- NOTE | 2017-07-06 16:51 | PRG ---
DATE OF SERVICE: 07/06/2017 NEUROSURGERY PROGRESS NOTE I am following up on Mr. Hassan's CT angiogram. There appears to be an aneurysm which is quite sma ll emanating from the origin of the PCOM aneurysm off the right carotid, pointing backwards. This ma y be the source of his original subarachnoid hemorrhage. I talked to Dr. Johnson who is going to look at the CT angiogram and consider repeat angiogram and possible coiling tomorrow. In the interim, onc e we wait about 12 hours from lumbar drain removal, I think we could gently start IV heparin without a bolus to a goal APTT of 50-70, so that we have smooth anticoagulation that could be turned off as n eeded. I will keep him on that regimen rather than any Lovenox or Coumadin or any newer anticoagulan t at least through the weekend unless the aneurysm is coiled tomorrow at which time he can be slowly transitioned from heparin to a more traditional anticoagulant.
--- NOTE | 2017-07-06 18:10 | PDOC.PN ---
- Subjective Encounter Start Date: 07/06/17 Encounter Start Time: 16:00 -: non-verbal Subjective: nsg notes rev, chinedu ovn, intermittently described as following some commands -: but is not following for me at this time - Objective Vital Signs & Weight: Vital Signs (12 hours) Temp Pulse Resp BP Pulse Ox 07/06/17 18:00 118 H 18 98 07/06/17 15:46 98.3 F 105 H 20 111/97 H 98 07/06/17 14:23 104 H 20 07/06/17 13:54 95 07/06/17 11:40 97.9 F 95 20 136/85 98 07/06/17 08:59 98.3 F 105 H 20 99 07/06/17 08:00 97.6 F 95 18 145/9 H 95 07/06/17 06:20 99 07/06/17 06:17 104 H 18 Weight Admit Weight 234 lb 2.095 oz Weight 224 lb Most Recent Monitor Data Heart Rate from ECG 122 NIBP 129/103 NIBP BP-Mean 113 Respiration from ECG 14 SpO2 72 I&O: 07/05/17 07/06/17 07/07/17 06:59 06:59 06:59 Intake Total 3173 5348 30 Output Total 1999 3970 Balance 1173 1378 30 Result Diagrams: 07/03/17 04:40 07/06/17 05:21 Phys Exam - Physical Examination Constitutional: NAD lying i nhospital bed HEENT: moist MMs, sclera anicteric, oral pharynx no lesions Respiratory: no wheezing, no rales, no rhonchi, clear to auscultation bilateral limited anterior exam Cardiovascular: RRR, no significant murmur, no rub Gastrointestinal: soft, non-tender, positive bowel sounds Musculoskeletal: no edema, pulses present Dx/Plan - Plan (1) Acute hypoxemic respiratory failure resolved, Extubated successfully 06/23/17 currently on RA (2) Aspiration pneumonia currently continued aspiration risk speech therapy consulted NGT for TF at this point in time, continue to re-assess aspiration risk (3) NSTEMI (non-ST elevated myocardial infarction) continue conservative medical mgmt cont to monitor hemodynamically stable (4) SAH (subarachnoid hemorrhage) s/p EVD per NS.Failed coiling attempt.on Empiric ABX s/p LP KIMBERLY, resolved apprec nephrology c/s b/l DVT noted on b/l LE u/s + saddle PE d/w Dr. Angelo LP drain was removed at noon today will start heparin gtt on PE protocol at midnight without bolus - no boluses, gradual and slow heparin gtt increases noted 3mm aneurysm on CTA brain - may have coiling considered for tomorrow - will empirically hold TF at midnight as well Tachycardia likely related to saddle PE prn labetalol low dose carvedilol 3.125mg and monitor diet: TF, hold at midnight activity: bedbound dvt ppx greater than 30 min critical care time spent on care of patient Review of Systems - Medications/Allergies Allergies/Adverse Reactions: Allergies Allergy/AdvReac Type Severity Reaction Status Date / Time ibuprofen Allergy Verified 07/02/17 09:00 Medications: Current Medications Acetaminophen (Tylenol Elixir) 650 mg PER TUBE Q4H PRN PRN Reason: Fever Last Admin: 07/06/17 16:53 Dose: 650 mg Albuterol/Ipratropium (Duoneb) 3 ml NEB [id number] [facility] Last Admin: 07/06/17 18:00 Dose: 3 ml Carvedilol (Coreg) 3.125 mg PO BID-WM [facility] Last Admin: 07/06/17 16:53 Dose: 3.125 mg Mineral Oil/White Petrolatum 99 gm/ Cholestyramine Resin 4 gm 0 gm TOP BID [facility] Last Admin: 07/06/17 13:55 Dose: 1 top Mineral Oil/White Petrolatum 99 gm/ Cholestyramine Resin 4 gm 0 gm TOP PRN PRN PRN Reason: WOUND CARE Last Admin: 07/06/17 09:10 Dose: 1 top Diphenhydramine HCl (Benadryl) 50 mg IVP Q6H PRN PRN Reason: Itching Last Admin: 07/02/17 01:43 Dose: 50 mg Heparin Sodium (Porcine) (Heparin 1,000 Units/Ml (10 Ml)) 0 units SLOW IVP ASDIR [place] PRN Reason: Protocol Hydralazine HCl (Apresoline) 20 mg SLOW IVP Q4H PRN PRN Reason: Hypertension Last Admin: 06/26/17 13:37 Dose: 20 mg Hydralazine HCl (Apresoline) 50 mg PO TID [facility] Last Admin: 07/06/17 13:54 Dose: 50 mg Dextrose/Sodium Chloride (D5 1/2 Ns) 1,000 mls @ 100 mls/hr IV .Q10H [facility] Last Admin: 07/06/17 13:58 Dose: 1,000 mls Azithromycin 500 mg/ Sodium (Chloride) 250 mls @ 250 mls/hr IVPB 1900 [facility] Last Admin: 07/05/17 18:07 Dose: 250 mls Cefepime HCl 2 gm/ Syringe 2.5 (ml/ Sodium Chloride) 12.5 mls @ 150 mls/hr SLOW IVP 0900,2100 [facility] Last Admin: 07/06/17 09:07 Dose: 12.5 mls Levetiracetam 500 mg/ Device 100 mls @ 200 mls/hr IVPB BID [facility] Last Admin: 07/06/17 09:07 Dose: 100 mls Heparin Sodium/Dextrose (Heparin 25,000 Units/D5w 500 Ml) 500 mls @ 0 mls/hr IVPB INF [facility]; Per Protocol PRN Reason: Protocol Labetalol HCl (Normodyne) 10 mg SLOW IVP Q10MIN PRN PRN Reason: SBP > 140, HR > 70 Last Admin: 07/05/17 14:52 Dose: 2 ml Morphine Sulfate (Morphine) 2 mg SLOW IVP Q4H PRN PRN Reason: PAIN 7-10 Last Admin: 07/03/17 21:56 Dose: 2 mg Pantoprazole Sodium (Protonix) 40 mg PO DAILY [facility] Last Admin: 07/06/17 09:09 Dose: 40 mg Promethazine HCl (Phenergan) 25 mg IM Q4H PRN PRN Reason: Nausea/Vomiting Sodium Chloride (Flush - Normal Saline) 10 ml IVF Q12HR [facility] Last Admin: 07/06/17 09:10 Dose: 10 ml Sodium Chloride (Flush - Normal Saline) 10 ml IVF PRN PRN PRN Reason: Saline Flush Last Admin: 06/28/17 08:49 Dose: 10 ml
[2017-07-06] MEDS ORDERED: Heparin 25,000 units/D5W 500 ML IVPB SCH ×2 (18:15→23:55)
[2017-07-06] MEDS ORDERED: Heparin 10,000 UNITS/ 10 ML VIAL SLOW IVP SCH ×2 (18:15→23:55)
[2017-07-06 18:25] LABS: Hemoglobin 10.2 g/dL (14.0-18.0); Platelet Count 333 thou/uL (130-400)
[2017-07-07 06:05] LABS: Anion Gap 14 mmol/L (10-20); BUN (Urea Nitrogen) 15 mg/dL (8.9-20.6); Calc. Creatinine Clearance 191 mL/min (70-130); Calcium 9.6 mg/dL (7.8-10.44); Carbon Dioxide 19 mmol/L (22-29); Chloride 107 mmol/L (98-107); Estimated GFR-MDRD Greater than 90; Glucose 107 mg/dL (70-105); Potassium 4.5 mmol/L (3.5-5.1); Sodium 135 mmol/L (136-145)
--- NOTE | 2017-07-07 07:19 | PRG ---
DATE OF SERVICE: 07/07/2017 I saw Marcos Hassan in his hospital room this morning. Yesterday the CT angiogram of the brain sug gested a PCOM aneurysm on the right side that was not present on the original two CT angiograms or on the cerebral angiogram. I spoke with Dr. Johnson about his care and is going to review imaging this m orning and consider coiling. Mr. Hassan has not had any acute events overnight. Nursing reports that he is trying to make more conversation that he has recently. When I see him his vital signs look stable, although there is tj e tachycardia. His eyes are open. He attempts to speak to me. I can hear noises and just a hint of some words. He is following commands with all 4 extremities, the left lower extremity is slower lexie n the rest. I think Mr. Hassan is neurologically improving after lumbar drainage, addition of Keppra and the di scovery of his pulmonary emboli. Hydrocephalus, seizures and hypoxia could each of them cause of cesar rological decline, I think the hydrocephalus is the least likely because he continues to improve afte r we stopped that drainage. We will continue on Keppra medication. Before full and long lasting anticoagulation we will see if this aneurysm is present and treatable wi th endovascular means. If it is not treatable within endovascular means may consider anticoagulatin g or holding his heparin for an operation and then anticoagulate him. His primary neurosurgeon, Dr. Galindo, returns from his absence on Monday and will likely take over his care.
[2017-07-07] MEDS: Dextrose 5 %-0.45 % NaCl 1,000 ML IV SCH ×3 (08:21→20:55)
[2017-07-07] MEDS: hydrALAZINE 25 MG TAB PO SCH ×3 (08:23→21:03)
[2017-07-07] MEDS: Carvedilol 3.125 MG TAB PO SCH ×2 (08:23→16:17)
[2017-07-07] MEDS: Aquaphor 30 GM 99 GM, Cholestyramine/Aspartame 4 GM TOP PRN ×4 (08:24→20:56)
[2017-07-07] MEDS: Cefepime 2 GM, Syringe 2.5 ML in Sodium Chloride 0.9% 10 ML SLOW IVP SCH ×2 (08:24→20:55)
[2017-07-07] MEDS: Aquaphor 30 GM 99 GM, Cholestyramine/Aspartame 4 GM TOP SCH ×2 (08:45→21:02)
[2017-07-07 08:51] LABS: PTT 128.7 SEC (22.9-36.1)
--- NOTE | 2017-07-07 09:30 | PRG ---
DATE OF SERVICE: 07/07/2017 I have been told that the patient has now been diagnosed with DVT and pulmonary embolism. He is curr ently on a heparin drip. He has also been discovered to have an aneurysm on his [place] of [place] ging. PHYSICAL EXAMINATION: VITAL SIGNS: On exam his temperature is 97.7, pulse 96, blood pressure 142/107. GENERAL: The patient is able to mutter some words. He is definitely talking more than he was last w [place]. HEENT: Otherwise unremarkable. NECK: No JVD. CHEST: Clear. CARDIAC: S1 and S2 regular. ABDOMEN: Soft. EXTREMITIES: No edema. LABORATORY DATA: Hematocrit 31.3, platelet count 333. PTT 128.7. Sodium 135, potassium 4.5, BUN 15 , creatinine 0.6, glucose 107. ASSESSMENT: 1. Deep venous thrombosis/pulmonary embolus. 2. Recent subarachnoid hemorrhage with an aneurysm. PLAN: 1. The patient is on a heparin drip which is likely the best we can do in this situation. At the ve ry least that can be reversed if he develops any type of bleeding issue in his brain. 2. Once he is considered more stable from a neurosurgical perspective then long-term anticoagulation with Coumadin can be considered. 3. His neurologic progress over the last week is promising. 4. I spoke with family at bedside.
[2017-07-07] MEDS ORDERED: Heparin 10,000 UNITS/ 10 ML VIAL SLOW IVP SCH (14:20)
--- NOTE | 2017-07-07 14:23 | PDOC.PN ---
- Subjective Encounter Start Date: 07/07/17 Encounter Start Time: 14:22 Subjective: nsg notes rev, chinedu ovn, awake, tracking, non-verbally interactive -: following single commands - Objective Vital Signs & Weight: Vital Signs (12 hours) Temp Pulse Resp BP Pulse Ox 07/07/17 13:49 84 12 07/07/17 11:42 98.6 F 106 H 20 143/94 H 97 07/07/17 08:24 96 16 07/07/17 08:00 97.7 F 96 16 142/107 H 99 07/07/17 04:00 98.4 F 91 18 138/91 H 98 07/07/17 02:42 97 Weight Admit Weight 234 lb 2.095 oz Weight 224 lb 8 oz Most Recent Monitor Data Heart Rate from ECG 122 NIBP 129/103 NIBP BP-Mean 113 Respiration from ECG 14 SpO2 72 I&O: 07/06/17 07/07/17 07/08/17 06:59 06:59 06:59 Intake Total 5348 90 Output Total 3970 1013 Balance 1378 -923 Result Diagrams: 07/06/17 18:17 07/07/17 05:08 Phys Exam - Physical Examination Constitutional: NAD lying in hospital bed HEENT: moist MMs, oral pharynx no lesions Respiratory: no wheezing, no rales, no rhonchi, clear to auscultation bilateral diminished throughout, limited anterior examination Cardiovascular: RRR, no significant murmur, no rub Gastrointestinal: soft, non-tender, positive bowel sounds Musculoskeletal: pulses present Dx/Plan - Plan (1) Acute hypoxemic respiratory failure resolved, extubated successfully 06/23/17 currently on RA (2) Aspiration pneumonia currently continued aspiration risk speech therapy consulted NGT for TF at this point in time, continue to re-assess aspiration risk mentation appears to be improved today (3) NSTEMI (non-ST elevated myocardial infarction) continue conservative medical mgmt cont to monitor hemodynamically stable (4) SAH (subarachnoid hemorrhage) s/p EVD per NS.Failed coiling attempt.on Empiric ABX s/p LP apprec neurosurg c/s KIMBERLY, resolved apprec nephrology c/s b/l DVT noted on b/l LE u/s + saddle PE will start heparin gtt on PE protocol at midnight without bolus - no boluses, gradual and slow heparin gtt increases goal PTT 50-70 (protocol titration parameters have been modified) noted 3mm aneurysm on CTA brain - apprec neurointerventionalist c/s Tachycardia likely related to saddle PE prn labetalol low dose carvedilol 3.125mg and monitor diet: TF on hold for potential coiling activity: bedbound dvt ppx d/w patient's at bedside - greater than 45 minutes spent discussing diagnosis, prognosis, and plan Review of Systems - Medications/Allergies Allergies/Adverse Reactions: Allergies Allergy/AdvReac Type Severity Reaction Status Date / Time ibuprofen Allergy Verified 07/02/17 09:00 Medications: Current Medications Acetaminophen (Tylenol Elixir) 650 mg PER TUBE Q4H PRN PRN Reason: Fever Last Admin: 07/06/17 16:53 Dose: 650 mg Albuterol/Ipratropium (Duoneb) 3 ml NEB [id number] [place] Last Admin: 07/07/17 13:49 Dose: 3 ml Carvedilol (Coreg) 3.125 mg PO BID-WM [facility] Last Admin: 07/07/17 08:23 Dose: 3.125 mg Mineral Oil/White Petrolatum 99 gm/ Cholestyramine Resin 4 gm 0 gm TOP BID [place] Last Admin: 07/07/17 08:45 Dose: Not Given Mineral Oil/White Petrolatum 99 gm/ Cholestyramine Resin 4 gm 0 gm TOP PRN PRN PRN Reason: WOUND CARE Last Admin: 07/07/17 08:44 Dose: 1 top Diphenhydramine HCl (Benadryl) 50 mg IVP Q6H PRN PRN Reason: Itching Last Admin: 07/02/17 01:43 Dose: 50 mg Heparin Sodium (Porcine) (Heparin 1,000 Units/Ml (10 Ml)) 0 units SLOW IVP ASDIR [place] PRN Reason: Protocol Hydralazine HCl (Apresoline) 20 mg SLOW IVP Q4H PRN PRN Reason: Hypertension Last Admin: 06/26/17 13:37 Dose: 20 mg Hydralazine HCl (Apresoline) 50 mg PO TID [place] Last Admin: 07/07/17 08:23 Dose: 50 mg Dextrose/Sodium Chloride (D5 1/2 Ns) 1,000 mls @ 100 mls/hr IV .Q10H [place] Last Admin: 07/07/17 11:26 Dose: 1,000 mls Azithromycin 500 mg/ Sodium (Chloride) 250 mls @ 250 mls/hr IVPB 1900 [facility] Last Admin: 07/05/17 18:07 Dose: 250 mls Cefepime HCl 2 gm/ Syringe 2.5 (ml/ Sodium Chloride) 12.5 mls @ 150 mls/hr SLOW IVP 0900,2100 [facility] Last Admin: 07/07/17 08:24 Dose: 12.5 mls Levetiracetam 500 mg/ Device 100 mls @ 200 mls/hr IVPB BID [facility] Last Admin: 07/07/17 08:24 Dose: 100 mls Heparin Sodium/Dextrose (Heparin 25,000 Units/D5w 500 Ml) 500 mls @ 0 mls/hr IVPB INF [facility]; Per Protocol PRN Reason: Protocol Labetalol HCl (Normodyne) 10 mg SLOW IVP Q10MIN PRN PRN Reason: SBP > 140, HR > 70 Last Admin: 07/05/17 14:52 Dose: 2 ml Morphine Sulfate (Morphine) 2 mg SLOW IVP Q4H PRN PRN Reason: PAIN 7-10 Last Admin: 07/03/17 21:56 Dose: 2 mg Pantoprazole Sodium (Protonix) 40 mg PO DAILY [facility] Last Admin: 07/07/17 08:24 Dose: 40 mg Promethazine HCl (Phenergan) 25 mg IM Q4H PRN PRN Reason: Nausea/Vomiting Sodium Chloride (Flush - Normal Saline) 10 ml IVF Q12HR [facility] Last Admin: 07/07/17 08:24 Dose: 10 ml Sodium Chloride (Flush - Normal Saline) 10 ml IVF PRN PRN PRN Reason: Saline Flush Last Admin: 06/28/17 08:49 Dose: 10 ml
[2017-07-07] MEDS: Azithromycin 500 MG in Sodium Chloride 0.9% 250 ML 250 ML IVPB SCH (19:28)
[2017-07-08] MEDS: Heparin 25,000 units/D5W 500 ML IVPB SCH ×2 (00:04→22:01)
[2017-07-08 04:29] LABS: Anion Gap 14 mmol/L (10-20); BUN (Urea Nitrogen) 15 mg/dL (8.9-20.6); Calc. Creatinine Clearance 173 mL/min (70-130); Calcium 9.3 mg/dL (7.8-10.44); Carbon Dioxide 20 mmol/L (22-29); Chloride 108 mmol/L (98-107); Estimated GFR-MDRD Greater than 90; Glucose 136 mg/dL (70-105); Potassium 3.7 mmol/L (3.5-5.1); Sodium 138 mmol/L (136-145)
[2017-07-08] MEDS: Dextrose 5 %-0.45 % NaCl 1,000 ML IV SCH (08:46)
[2017-07-08] MEDS: Aquaphor 30 GM 99 GM, Cholestyramine/Aspartame 4 GM TOP SCH ×2 (08:47→22:03)
[2017-07-08] MEDS: hydrALAZINE 25 MG TAB PO SCH ×3 (08:47→22:20)
[2017-07-08] MEDS: Cefepime 2 GM, Syringe 2.5 ML in Sodium Chloride 0.9% 10 ML SLOW IVP SCH ×2 (08:47→22:00)
[2017-07-08] MEDS: Carvedilol 3.125 MG TAB PO SCH ×2 (08:48→17:59)
[2017-07-08] MEDS: Pantoprazole 40 MG GRANULES PACKET PER TUBE SCH (08:50)
[2017-07-08] MEDS ORDERED: Dextrose 5 %-0.45 % NaCl 1,000 ML IV SCH (10:00)
[2017-07-08] MEDS ORDERED: Furosemide 20 MG/2 ML VIAL SLOW IVP SCH (10:15)
--- NOTE | 2017-07-08 11:02 | PRG ---
DATE OF SERVICE: 07/08/2017 SERVICE: Pulmonary Medicine. INTERVAL HISTORY: The patient is doing fine from a respiratory standpoint. He remains on room air. He is not really responding too terribly well. That being said, he is currently at his baseline. H e will open his eyes spontaneously. He does attend. That being said, he does nothing, but make inco mprehensible sounds. He can move spontaneously. There were no overnight events. PHYSICAL EXAMINATION: VITAL SIGNS: Afebrile, pulse 111, blood pressure 147/104, respirations 20, saturation 95% on room ai r. GENERAL: The patient is awake and alert. He is not following any commands. He cannot converse. HEENT: Normocephalic, atraumatic. Sclerae are white, conjunctivae pink. Oral and nasal mucosa is m oist without lesions. LUNGS: Decent air entry. Crackles are present. There is no prolonged expiratory phase or wheezing. HEART: Normal rate, regular. ABDOMEN: Soft, nontender, nondistended. Bowel sounds are positive. MUSCULOSKELETAL: No cyanosis or clubbing. He has got diffuse edema throughout. His most pronounced in the left lower extremity, which is roughly 3+. GENITOURINARY: Ta catheter in place. LABORATORY DATA: Sodium 138, potassium 3.7. Basic metabolic profile is essentially unremarkable oth erwise. ASSESSMENT: 1. Subarachnoid hemorrhage secondary to aneurysm. 2. Deep venous thrombosis/pulmonary embolism. 3. Volume overload, mild. PLAN: The patient seems to be tolerating tube feeds just fine. As such, we will interrupt his IV fl uids. We will continue to follow some electrolytes through time. Pulmonary and Critical Care will c ontinue to follow while he remains in house as he is at extraordinarily high risk for aspiration rela lakesha diseases.
--- NOTE | 2017-07-08 11:40 | PDOC.PN ---
- Subjective Encounter Start Date: 07/08/17 Encounter Start Time: 11:38 -: non-verbal Subjective: nsg notes rev, chinedu ovn, pt is following commands, nods yes/no to questions -: does not verbalize but does vocalize with grunts. denies any pain - Objective Vital Signs & Weight: Vital Signs (12 hours) Temp Pulse Resp BP Pulse Ox 07/08/17 11:28 98.1 F 118 H 22 H 142/100 H 95 07/08/17 08:47 111 H 07/08/17 07:56 98.8 F 111 H 20 147/104 H 95 07/08/17 06:24 100 07/08/17 06:23 118 H 16 07/08/17 03:44 98.9 F 119 H 16 137/88 99 07/07/17 23:54 98 Weight Admit Weight 234 lb 2.095 oz Weight 227 lb 6.4 oz Most Recent Monitor Data Heart Rate from ECG 122 NIBP 129/103 NIBP BP-Mean 113 Respiration from ECG 14 SpO2 72 I&O: 07/07/17 07/08/17 07/09/17 06:59 06:59 06:59 Intake Total 90 4268 30 Output Total 1013 1425 Balance -923 2843 30 Result Diagrams: 07/06/17 18:17 07/08/17 02:49 Phys Exam - Physical Examination Constitutional: NAD lying in hospital bed HEENT: moist MMs, sclera anicteric, oral pharynx no lesions Respiratory: no wheezing, no rales, no rhonchi, clear to auscultation bilateral limited anterior exam Cardiovascular: RRR, no significant murmur, no rub Gastrointestinal: soft, non-tender, no distention, positive bowel sounds vásquez draining light yellow urine Musculoskeletal: no edema, pulses present Neurological: moves all 4 limbs Dx/Plan - Plan * (1) Acute hypoxemic respiratory failure resolved, extubated successfully 06/23/17 currently on RA high risk for aspiration (2) Aspiration pneumonia currently continued aspiration risk speech therapy consulted NGT for TF at this point in time, continue to re-assess aspiration risk mentation appears to be improved today (3) NSTEMI (non-ST elevated myocardial infarction) continue conservative medical mgmt cont to monitor hemodynamically stable (4) SAH (subarachnoid hemorrhage) s/p EVD per NS.Failed coiling attempt.on Empiric ABX s/p LP apprec neurosurg c/s KIMBERLY, resolved apprec nephrology c/s b/l DVT noted on b/l LE u/s + saddle PE will start heparin gtt on PE protocol at midnight without bolus - no boluses, gradual and slow heparin gtt increases goal PTT 50-70 (protocol titration parameters have been modified) noted 3mm aneurysm on CTA brain - apprec neurointerventionalist c/s no coiling at this point in time, will re-assess and monitor mental status Tachycardia likely related to saddle PE prn labetalol low dose carvedilol 3.125mg and monitor diet: TF on hold for potential coiling activity: bedbound dvt ppx d/w pt's bedside nsg Review of Systems - Medications/Allergies Allergies/Adverse Reactions: Allergies Allergy/AdvReac Type Severity Reaction Status Date / Time ibuprofen Allergy Verified 07/02/17 09:00 Medications: Current Medications Acetaminophen (Tylenol Elixir) 650 mg PER TUBE Q4H PRN PRN Reason: Fever Last Admin: 07/06/17 16:53 Dose: 650 mg Albuterol/Ipratropium (Duoneb) 3 ml NEB [id number] [place] Last Admin: 07/08/17 06:23 Dose: 3 ml Carvedilol (Coreg) 3.125 mg PO BID-WM [place] Last Admin: 07/08/17 08:48 Dose: 3.125 mg Mineral Oil/White Petrolatum 99 gm/ Cholestyramine Resin 4 gm 0 gm TOP BID [place] Last Admin: 07/08/17 08:47 Dose: 1 top Mineral Oil/White Petrolatum 99 gm/ Cholestyramine Resin 4 gm 0 gm TOP PRN PRN PRN Reason: WOUND CARE Last Admin: 07/07/17 20:56 Dose: 1 top Diphenhydramine HCl (Benadryl) 50 mg IVP Q6H PRN PRN Reason: Itching Last Admin: 07/02/17 01:43 Dose: 50 mg Furosemide (Lasix) 20 mg SLOW IVP NOW [place] Stop: 07/08/17 12:15 Last Admin: 07/08/17 11:15 Dose: 20 mg Heparin Sodium (Porcine) (Heparin 1,000 Units/Ml (10 Ml)) 0 units SLOW IVP ASDIR [place] PRN Reason: Protocol Hydralazine HCl (Apresoline) 20 mg SLOW IVP Q4H PRN PRN Reason: Hypertension Last Admin: 06/26/17 13:37 Dose: 20 mg Hydralazine HCl (Apresoline) 50 mg PO TID [facility] Last Admin: 07/08/17 08:47 Dose: 50 mg Cefepime HCl 2 gm/ Syringe 2.5 (ml/ Sodium Chloride) 12.5 mls @ 150 mls/hr SLOW IVP 0900,2100 [facility] Last Admin: 07/08/17 08:47 Dose: 12.5 mls Levetiracetam 500 mg/ Device 100 mls @ 200 mls/hr IVPB BID [facility] Last Admin: 07/08/17 08:48 Dose: 100 mls Heparin Sodium/Dextrose (Heparin 25,000 Units/D5w 500 Ml) 500 mls @ 0 mls/hr IVPB INF [place]; Per Protocol PRN Reason: Protocol Last Admin: 07/08/17 00:04 Dose: 500 mls Dextrose/Sodium Chloride (D5 1/2 Ns) 1,000 mls @ 0 mls/hr IV .Q0M [facility] PRN Reason: KVO Labetalol HCl (Normodyne) 10 mg SLOW IVP Q10MIN PRN PRN Reason: SBP > 140, HR > 70 Last Admin: 07/05/17 14:52 Dose: 2 ml Pantoprazole Sodium (Protonix) 40 mg PER TUBE DAILY [facility] Last Admin: 07/08/17 08:50 Dose: 40 mg Promethazine HCl (Phenergan) 25 mg IM Q4H PRN PRN Reason: Nausea/Vomiting Sodium Chloride (Flush - Normal Saline) 10 ml IVF Q12HR [facility] Last Admin: 07/08/17 08:50 Dose: 10 ml Sodium Chloride (Flush - Normal Saline) 10 ml IVF PRN PRN PRN Reason: Saline Flush Last Admin: 06/28/17 08:49 Dose: 10 ml
--- NOTE | 2017-07-08 13:23 | PRG ---
DATE OF SERVICE: 07/08/2017 SUBJECTIVE: Mr. Hassan is hospital day #24 following subarachnoid hemorrhage. He was then found t o have hydrocephalus. A lumbar drain was placed and as part of the evaluation given his relative imm obilization, ultrasound was performed of the lower extremities which demonstrated DVT and CT of the c hest revealed a pulmonary embolism. He is now on anticoagulation with a PTT goal of 50-70. This is being maintained obviously with intravenous heparin. Our medical colleagues are assisting in this re javier. Review of his PTT this morning demonstrates that it is at 69. We have spoken with our Medical Service in regards to tight regulation of the PTT. On exam, the patient appears to be neurologicall y unchanged. There is a right-sided ptosis, although he is able to keep his eyes open on the right s zelda. He does follow commands, although a bit delayed in the left leg. He does utter 1-2 words, agai n appears to be neurologically at his baseline.
[2017-07-08] MEDS ORDERED: Labetalol HCl 100 MG/20 ML VIAL SLOW IVP SCH (14:45)
[2017-07-08 18:19] LABS: Hemoglobin 10.8 g/dL (14.0-18.0); Platelet Count 356 thou/uL (130-400)
[2017-07-09 05:25] LABS: Anion Gap 9 mmol/L (10-20); BUN (Urea Nitrogen) 16 mg/dL (8.9-20.6); Calc. Creatinine Clearance 180 mL/min (70-130); Calcium 9.5 mg/dL (7.8-10.44); Carbon Dioxide 25 mmol/L (22-29); Chloride 108 mmol/L (98-107); Estimated GFR-MDRD Greater than 90; Glucose 135 mg/dL (70-105); Sodium 138 mmol/L (136-145)
[2017-07-09] MEDS: Labetalol HCl 100 MG/20 ML VIAL SLOW IVP PRN (06:32)
[2017-07-09] MEDS: Carvedilol 3.125 MG TAB PO SCH ×2 (10:11→16:31)
[2017-07-09] MEDS: Pantoprazole 40 MG GRANULES PACKET PER TUBE SCH (10:12)
[2017-07-09] MEDS: Cefepime 2 GM, Syringe 2.5 ML in Sodium Chloride 0.9% 10 ML SLOW IVP SCH ×2 (10:12→21:07)
[2017-07-09] MEDS: Aquaphor 30 GM 99 GM, Cholestyramine/Aspartame 4 GM TOP SCH ×2 (10:13→21:10)
[2017-07-09] MEDS: Acetaminophen 650 MG/20.3 ML UDCUP PER TUBE PRN (10:14)
[2017-07-09] MEDS: hydrALAZINE 25 MG TAB PO SCH ×3 (10:25→21:08)
--- NOTE | 2017-07-09 10:34 | PDOC.PN ---
- Subjective Encounter Start Date: 07/09/17 Encounter Start Time: 10:33 CC: STROKE SUB: pt is sleeping - Objective Vital Signs & Weight: Vital Signs (12 hours) Temp Pulse Resp BP BP Pulse Ox 07/09/17 10:25 107 H 07/09/17 08:00 99.1 F 107 H 18 150/101 H 98 07/09/17 07:33 108 H 12 98 07/09/17 06:32 141 H 150/99 H 07/09/17 04:03 99.8 F H 121 H 20 131/89 99 07/08/17 23:46 102 H 18 07/08/17 23:25 98.4 F 111 H 18 128/90 93 L Weight Admit Weight 234 lb 2.095 oz Weight 230 lb 6.4 oz Most Recent Monitor Data Heart Rate from ECG 122 NIBP 129/103 NIBP BP-Mean 113 Respiration from ECG 14 SpO2 72 I&O: 07/08/17 07/09/17 07/10/17 06:59 06:59 06:59 Intake Total 4268 1488 30 Output Total 1425 1525 Balance 2843 -37 30 Result Diagrams: 07/08/17 18:12 07/09/17 04:39 Dx/Plan - Plan - Physical Examination Constitutional: sleeping lying in hospital bed HEENT: moist MMs, sclera anicteric, oral pharynx no lesions Respiratory: no wheezing, no rales, no rhonchi, clear to auscultation bilateral limited anterior exam Cardiovascular: RRR, no significant murmur, no rub Gastrointestinal: soft, non-tender, no distention, positive bowel sounds vásquez draining light yellow urine Musculoskeletal: no edema, pulses present Neurological: lethargic, not following commands Dx/Plan - Plan * (1) Acute hypoxemic respiratory failure resolved, extubated successfully 06/23/17 currently on RA high risk for aspiration (2) Aspiration pneumonia currently continued aspiration risk speech therapy consulted NGT for TF at this point in time, continue to re-assess aspiration risk mentation appears to be improved today (3) NSTEMI (non-ST elevated myocardial infarction) continue conservative medical mgmt cont to monitor hemodynamically stable (4) SAH (subarachnoid hemorrhage) s/p EVD per NS.Failed coiling attempt.on Empiric ABX s/p LP apprec neurosurg c/s KIMBERLY, resolved apprec nephrology c/s b/l DVT noted on b/l LE u/s + saddle PE continue heparin gtt on PE protocol at midnight without bolus - no boluses, gradual and slow heparin gtt increases goal PTT 50-70 (protocol titration parameters have been modified). will check PTT two time a day noted 3mm aneurysm on CTA brain - apprec neurointerventionalist c/s no coiling at this point in time, will re-assess and monitor mental status Tachycardia likely related to saddle PE prn labetalol low dose carvedilol 3.125mg and monitor diet: Tolerating tube feeds activity: bedbound dvt ppx d/w pt's bedside nsg
[2017-07-09] MEDS: Heparin 25,000 units/D5W 500 ML IVPB SCH (18:32)
[2017-07-09] MEDS: Aquaphor 30 GM 99 GM, Cholestyramine/Aspartame 4 GM TOP PRN (21:09)
[2017-07-10 05:50] LABS: Band 1 % (5-11); Eosinophils 3 % (0-10); Hemoglobin 9.9 g/dL (14.0-18.0); Lymphocytes 20 % (21-51); MDiff Complete? YES; Mean Corpuscular HGB CONC 32.5 g/dL (32.0-36.0); Mean Corpuscular Volume 98.5 fl (80.0-94.0); Mean Platelet Volume 7.6 fL (7.4-10.4); Monocytes 14 % (0-10); Neutrophil 62 % (42-75); Platelet Count 370 thou/uL (130-400); RBC Distribution Width 14.8 % (11.5-14.5); Red Blood Cell (RBC) Count 3.08 mill/uL (4.70-6.10); Target Cells SLIGHT = 2-5 cells (100X) (0-1/hpf); White Blood Cell (WBC) Count 7.8 thou/uL (4.8-10.8)
[2017-07-10 05:55] LABS: Anion Gap 10 mmol/L (10-20); BUN (Urea Nitrogen) 17 mg/dL (8.9-20.6); Calc. Creatinine Clearance 182 mL/min (70-130); Calcium 9.5 mg/dL (7.8-10.44); Carbon Dioxide 24 mmol/L (22-29); Chloride 105 mmol/L (98-107); Estimated GFR-MDRD Greater than 90; Glucose 122 mg/dL (70-105); Potassium 4.3 mmol/L (3.5-5.1); Sodium 135 mmol/L (136-145)
[2017-07-10] MEDS: Cefepime 2 GM, Syringe 2.5 ML in Sodium Chloride 0.9% 10 ML SLOW IVP SCH ×2 (08:36→20:31)
[2017-07-10] MEDS: Pantoprazole 40 MG GRANULES PACKET PER TUBE SCH (08:37)
[2017-07-10] MEDS: Carvedilol 3.125 MG TAB PO SCH ×2 (08:37→16:53)
[2017-07-10] MEDS: Aquaphor 30 GM 99 GM, Cholestyramine/Aspartame 4 GM TOP SCH ×2 (08:38→20:32)
--- NOTE | 2017-07-10 08:58 | PRG ---
DATE OF SERVICE: 07/10/2017 The patient is able to shake my hand with his right hand without difficulty. He looks around, did no t verbalize. PHYSICAL EXAMINATION: VITAL SIGNS: Temperature 98.5, pulse 118 to 128, respirations 18, O2 sat 95% on room air, blood pres sure 140/99. HEENT: Otherwise unremarkable. NECK: No JVD. LUNGS: Clear. CARDIAC: S1 and S2 regular. ABDOMEN: Soft. EXTREMITIES: No edema. LABORATORY DATA: White blood cell count 7.8, hematocrit 30, platelet count 370. PTT 63.5. Sodium 1 35, potassium 4.3, chloride 105, CO2 24, BUN 7, creatinine 0.7, glucose 122. ASSESSMENT: 1. Deep venous thrombosis/pulmonary embolus. 2. Status post subarachnoid hemorrhage. PLAN: 1. Continuing heparin drip. 2. Consider converting over to Coumadin when okay with Neurosurgery. 3. I will continue to follow with you intermittently.
[2017-07-10] MEDS: hydrALAZINE 25 MG TAB PO SCH ×3 (10:00→20:31)
[2017-07-10] MEDS: Labetalol HCl 100 MG/20 ML VIAL SLOW IVP PRN ×2 (12:09→20:36)
--- NOTE | 2017-07-10 16:12 | PDOC.PN ---
- Subjective Encounter Start Date: 07/10/17 Encounter Start Time: 15:55 Subjective: f/u for SAH, aphasia, bilat LE DVT's and PE's on Heparin gtt. Remains full -: care and assist on TF's with Jevity 1.2 @ 60ml/h. - Objective MAR Reviewed: Yes Vital Signs & Weight: Vital Signs (12 hours) Temp Pulse Resp BP BP BP BP 07/10/17 15:49 98.8 F 113 H 16 07/10/17 14:39 118 H 07/10/17 13:19 101 H 15 07/10/17 12:09 113 H 155/111 H 07/10/17 11:53 98.5 F 113 H 18 07/10/17 10:01 144/77 H 141/78 H 07/10/17 10:00 128 H 07/10/17 08:00 98.5 F 128 H 18 07/10/17 07:42 98.5 F 128 H 18 07/10/17 06:55 07/10/17 06:53 128 H 16 07/10/17 05:25 99.2 F 118 H 18 138/96 H BP Pulse Ox 07/10/17 15:49 126/94 H 92 L 07/10/17 14:39 07/10/17 13:19 07/10/17 12:09 07/10/17 11:53 155/111 H 95 07/10/17 10:01 07/10/17 10:00 07/10/17 08:00 07/10/17 07:42 140/99 H 95 07/10/17 06:55 98 07/10/17 06:53 98 07/10/17 05:25 96 Weight Admit Weight 234 lb 2.095 oz Weight 233 lb Most Recent Monitor Data Heart Rate from ECG 122 NIBP 129/103 NIBP BP-Mean 113 Respiration from ECG 14 SpO2 72 I&O: 07/09/17 07/10/17 07/11/17 06:59 06:59 06:59 Intake Total 1488 2611 60 Output Total 1525 725 Balance -37 1886 60 Result Diagrams: 07/10/17 05:22 07/10/17 05:22 Additional Labs: Laboratory Tests 07/08/17 07/09/17 07/09/17 08:41 04:39 16:05 APTT 69.9 H 68.6 H 84.7 H 07/09/17 07/10/17 07/10/17 23:23 05:22 11:47 APTT 61.1 H 63.5 H 63.4 H Radiology Reviewed by me: Yes (CT angio chest - multiple bilat PE's) EKG Reviewed by me: Yes (Tele - Sinus tachycardia in 110's) Phys Exam - Physical Examination alert, tracks with eyes, utters [address] HEENT: PERRLA, moist MMs, sclera anicteric, oral pharynx no lesions Neck: no nodes, no JVD, supple few scattered rhonchi Respiratory: no wheezing, no rales, clear to auscultation bilateral S1, S2, tachycardic Cardiovascular: no significant murmur, no rub, gallop Gastrointestinal: soft, non-tender, no distention, positive bowel sounds Musculoskeletal: no edema, pulses present moves MILIND/LE extremities dysphasia/aphasia Skin: no rash, normal turgor, cap refill <2 seconds Dx/Plan (1) DVT, bilateral lower limbs Code(s): I82.403 - ACUTE EMBOLISM AND THOMBOS UNSP DEEP VEINS OF LOW EXTRM, BI Status: Acute Comment: Heparin gtt as outlined below (2) Pulmonary embolism Code(s): I26.99 - OTHER PULMONARY EMBOLISM WITHOUT ACUTE COR PULMONALE Status : Acute Qualifiers: Chronicity: acute Comment: multiple emboli noted on CTA, continue Heparin gtt wtih PTT 50-70 due to SAH (3) SAH (subarachnoid hemorrhage) Code(s): I60.9 - NONTRAUMATIC SUBARACHNOID HEMORRHAGE, UNSPECIFIED Status: Acute Comment: s/p EVD per NS.Failed coiling attempt, Repeat CT Brain given heparin gtt and SAH (4) Dysphagia Code(s): R13.10 - DYSPHAGIA, UNSPECIFIED Status: Acute Qualifiers: Dysphagia type: oropharyngeal phase Qualified Code(s): R13.12 - Dysphagia, oropharyngeal phase Comment: Nutritional support Jevity 1.2 @ 60ml/h, free-H2O flushes 60ml q4h, serial TUB ATTENDANT assessment - Plan continue antibiotics, PT/OT, pediatric social worker, speech therapy, respiratory therapy, DVT proph w/SCDs Continue supportive mgmt -: Increase free-H2O flushes 60ml q4h -: PT for mobilization -: Repeat CT brain given Heparin gtt -: CM for LTAC/SNF options * AM lab: PTT, H/H * Poor prognosis
[2017-07-10] MEDS: Heparin 25,000 units/D5W 500 ML IVPB SCH (16:58)
[2017-07-10 18:50] LABS: Hemoglobin 10.3 g/dL (14.0-18.0)
[2017-07-10 18:51] LABS: Platelet Count 314 thou/uL (130-400)
--- NOTE | 2017-07-11 06:18 | PRG ---
DATE OF SERVICE: 07/09/2017 SERVICE: Pulmonary Medicine INTERVAL HISTORY: The patient is doing great from a respiratory standpoint. He has little bit of a wet cough. He is also running some low-grade temperatures. Otherwise, there has been no interval change to his condition, mentation or otherwise. Nursing reports no events. OBJECTIVE: VITAL SIGNS: Afebrile, pulse 114, blood pressure 129/100, respirations 20, saturation 98% on room air. GENERAL: Patient is awake, alert, in no apparent distress. LUNGS: Decent air entry. Rhonchi are present on the right. With cough, they seemed to clear. No prolonged expiratory phase, wheezing, or crackles are appreciated. HEART: Normal rate, regular. ABDOMEN: Soft, nontender, nondistended. Bowel sounds are positive. MUSCULOSKELETAL: No cyanosis or clubbing. There is pitting in the left lower extremity. There is no pitting in the right lower extremity. GENITOURINARY: Ta catheter in place. NEUROLOGIC: Grossly nonfocal. LABORATORIES: Basic metabolic profile is essentially unremarkable. Potassium 4.0 has improved. ASSESSMENT: 1. Subarachnoid hemorrhage secondary to aneurysm. 2. Deep vein thrombosis/pulmonary embolism. 3. Oropharyngeal dysphagia. 4. Debility. PLAN: He will continue working with physical therapy in order to regain loss strength best of his ability. We will need to definitively answer whether not the patient's family would like to pursue PEG tube placement. He is having a hard time progressing as far as learning how to swallow. The Dobhoff tube is only a temporizing measure. Pulmonary will continue to follow along by Dr. Caballero. We will resume care in the morning. PETER
--- NOTE | 2017-07-11 08:15 | PRG ---
DATE OF SERVICE: 07/09/2017 SUBJECTIVE: Mr. Hassan is essentially neurologically stable except for a bit more drowsiness; however, he still follows commands and appears to be napping at time of my evaluation, but he does respond in a stable fashion. His PTT is just below 70 and thus in an acceptable range. His wounds are healing well. Dr. Galindo returns tomorrow. PETER
[2017-07-11] MEDS: Pantoprazole 40 MG GRANULES PACKET PER TUBE SCH (09:16)
[2017-07-11] MEDS: Carvedilol 3.125 MG TAB PO SCH (09:17)
[2017-07-11] MEDS: hydrALAZINE 25 MG TAB PO SCH ×3 (09:18→21:26)
[2017-07-11] MEDS: Aquaphor 30 GM 99 GM, Cholestyramine/Aspartame 4 GM TOP SCH ×2 (09:21→21:28)
--- NOTE | 2017-07-11 11:02 | PRG ---
DATE OF SERVICE: 07/11/2017 SUBJECTIVE: Mr. Hassan is more somnolent than he has been in the last several days. PHYSICAL EXAMINATION: VITAL SIGNS: Temperature 99, pulse 119, respirations 18, O2 saturation 97%, blood pressure 139/90. HEENT: Unremarkable. NECK: No JVD. LUNGS: Clear but distant breath sounds. CARDIAC: S1 and S2 regular. ABDOMEN: Soft. EXTREMITIES: No edema. LABORATORY DATA: PTT is 73.1. ASSESSMENT: 1. Deep venous thrombosis/pulmonary embolism. 2. Subarachnoid hemorrhage. 3. Severe debilitation after the subarachnoid hemorrhage. PLAN: 1. Continuing heparin drip. At some point, he will need to be placed on a more long anticoagulant - probably Coumadin. 2. Might need to consider placing a feeding tube prior to converting over to long-acting anticoagula nts as it does not appear that his swallowing is going to improve.
--- NOTE | 2017-07-11 11:14 | PRG ---
DATE OF SERVICE: 07/11/2017 Mr. Hassan remains moderately obtunded with ups and downs regarding his mentation. Currently, the medical team is considering placement of a PEG. The patient has a pulmonary emboli and DVT is now being treated with a heparin drip. Dr. Johnson is pl anning a cerebral angiogram mid to late week with possible efforts at coiling a PCOM aneurysm that wa s discovered on subsequent CT angiogram. We will continue the heparin drip until the angiogram and c an make definitive plans for anticoagulation following this. We will continue to follow along to ass ist.
--- NOTE | 2017-07-11 12:20 | CT ---
CT BRAIN WITHOUT CONTRAST: Date: 07/11/17 HISTORY: Follow-up hemorrhage. COMPARISON: Multiple prior examinations, most recent CT brain without contrast on 07/05/17. FINDINGS: There is intraventricular hemorrhage, similar. The ventricular system is mildly enlarged relative to the comparison examinations with dilatation of the lateral 3rd and 4th ventricles and temporal horns. The lateral ventricular size reaches up to 17.0 mm, previously 15.0 mm. There is mild sulcal effacement. Early effacement of the basilar cisterns. Right frontal hypodensity is similar. IMPRESSION: Mild worsening hydrocephalus with sulcal effacement. POS: OFF
[2017-07-11] MEDS ORDERED: levETIRAcetam In NaCl (Iso-Os) 750 MG in Premix Bag 1 BAG IVPB SCH (13:40)
--- NOTE | 2017-07-11 13:44 | PDOC.PN ---
- Subjective Encounter Start Date: 07/11/17 Encounter Start Time: 13:35 Subjective: f/u for SAH with aphasia, R hemiparesis and dysphagia. Also with current -: Heparin gtt for bilat DVT's LE's and PE's. Some facial twitching noted by -: family today currently tx with Keppra 500mg BID. - Objective MAR Reviewed: Yes Vital Signs & Weight: Vital Signs (12 hours) Temp Pulse Resp BP BP Pulse Ox 07/11/17 12:00 99.6 F 109 H 18 125/98 H 95 07/11/17 09:18 119 H 07/11/17 08:00 98.5 F 119 H 18 109/80 97 07/11/17 06:00 118 H 16 07/11/17 04:59 119 H 130/92 H 07/11/17 03:37 99.2 F 122 H 16 146/105 H 97 Weight Admit Weight 234 lb 2.095 oz Weight 230 lb 1.6 oz Most Recent Monitor Data Heart Rate from ECG 122 NIBP 129/103 NIBP BP-Mean 113 Respiration from ECG 14 SpO2 72 I&O: 07/10/17 07/11/17 07/12/17 06:59 06:59 06:59 Intake Total 2611 1419 1136 Output Total 725 Balance 1886 1419 1136 Result Diagrams: 07/10/17 16:26 07/10/17 05:22 Radiology Reviewed by me: Yes (CT brain - mild worsening of hydrocephalus) EKG Reviewed by me: Yes (Tele - sinus tachycardia) Phys Exam - Physical Examination lethargic, opens eyes briefly NGT in place HEENT: PERRLA, sclera anicteric, oral pharynx no lesions Neck: no nodes, no JVD, supple few scattered rhonchi clear lungs o/w Respiratory: no wheezing tachycardic S1, S2 Cardiovascular: no significant murmur, no rub, gallop Gastrointestinal: soft, non-tender, no distention, positive bowel sounds Musculoskeletal: no edema, pulses present LUE movement randomly R hemiparesis, dysphagia and aphasia Skin: no rash, normal turgor, cap refill <2 seconds Dx/Plan (1) DVT, bilateral lower limbs Code(s): I82.403 - ACUTE EMBOLISM AND THOMBOS UNSP DEEP VEINS OF LOW EXTRM, BI Status: Acute Comment: Heparin gtt as outlined below, OAC when stabilizing and likely PEG route available (2) Pulmonary embolism Code(s): I26.99 - OTHER PULMONARY EMBOLISM WITHOUT ACUTE COR PULMONALE Status : Acute Qualifiers: Chronicity: acute Comment: multiple emboli noted on CTA, continue Heparin gtt wtih PTT 50-70 due to SAH (3) SAH (subarachnoid hemorrhage) Code(s): I60.9 - NONTRAUMATIC SUBARACHNOID HEMORRHAGE, UNSPECIFIED Status: Acute Comment: s/p EVD per NS.Failed coiling attempt, Repeat CT Brain given heparin gtt and SAH (4) Seizure as late effect of cerebrovascular accident (CVA) Code(s): I69.398 - OTHER SEQUELAE OF CEREBRAL INFARCTION; R56.9 - UNSPECIFIED CONVULSIONS Status: Acute Comment: Increase Keppra 750mg IV q12h, consult Neurology service for evaluation (5) Dysphagia Code(s): R13.10 - DYSPHAGIA, UNSPECIFIED Status: Acute Qualifiers: Dysphagia type: oropharyngeal phase Qualified Code(s): R13.12 - Dysphagia, oropharyngeal phase Comment: Nutritional support Jevity 1.2 @ 60ml/h, free-H2O flushes 60ml q4h, serial S IRON WORKER assessment (6) Sinus tachycardia Code(s): R00.0 - TACHYCARDIA, UNSPECIFIED Status: Acute Comment: Etiology unclear, suspect neuro-mediated, increase Coreg 6.25mg BID, repeat PCXR to r/o infiltrate - Plan plan discussed w/ family, PT/OT, social work specialist, speech therapy, DVT proph w/ SCDs Continue supportive measures -: Consult GI for PEG tube placement -: Continue Nutritional support with Jevity 1.2 @ 60ml/h -: Increase Keppra 750mg IV q12h -: Check PCXR to r/o infiltrate * AM lab: CMP, CBC, UA
--- NOTE | 2017-07-11 15:50 | RAD ---
RADIOGRAPH CHEST 1 VIEW: Date: 07/11/17 Time: 1406 hours HISTORY: 47-year-old male with CVA and dysphagia. Rule out infiltrate. COMPARISON: 06/30/17. FINDINGS: The left apex is excluded from the field of view. The only interval change since the prior study is t he presence of a Dobbhoff feeding tube, with distal tip in the expected vicinity of the gastroduodena l junction or distal stomach. There is no air space density, pulmonary edema, or pneumothorax. The la teral costophrenic angles are sharp. IMPRESSION: 1. No acute pulmonary findings. 2. Dobbhoff feeding tube. addy [] POS: Jose
[2017-07-11] MEDS: Heparin 25,000 units/D5W 500 ML IVPB SCH (15:59)
[2017-07-11] MEDS: Carvedilol 6.25 MG TAB PO SCH (16:03)
--- NOTE | 2017-07-11 21:38 | CON ---
DATE OF CONSULTATION: 07/11/2017 CONSULTING PHYSICIAN: Hospitalist Service. IMPRESSION: 1. Subarachnoid hemorrhage. 2. Seizures. 3. Poor responsiveness. PLAN: 1. EEG. 2. Continue Keppra 750 mg twice a day. 3. Consider recalling Neurosurgery to determine whether his hydrocephalus is worsening and might req uire shunting. Mr. Hassan is a 47-year-old -[place] man, who has been in the hospital since 06/14/2017 whe n he presented with a subarachnoid hemorrhage. He had transient shunting done after his initial even t. His CTA did not reveal definitive aneurysm, which required surgical intervention. He has apparen tly had some witnessed seizures and was started on Keppra. He has been followed by Neurosurgery. Si nce his initial admission, he has had several CTs along the way. His most recent CT was today is quirino d as some progression in hydrocephalus. The nurses noted that he has had some intermittent right fac ial twitching. His vital signs have otherwise been fairly stable with some persistent hypertension, but he has been afebrile. Laboratory studies have shown some anemia and otherwise his electrolytes w ere in normal range. Hospitalist Service requested neurologic opinion. PAST MEDICAL HISTORY: Hypertension. ALLERGIES: IBUPROFEN. SOCIAL HISTORY: Unknown. FAMILY HISTORY: Unknown. REVIEW OF SYSTEMS: Not obtainable. PHYSICAL EXAMINATION: GENERAL: He is well-nourished man lying in bed with his eyes open. VITAL SIGNS: Blood pressure 141/98, pulse 126, respirations 18. He is afebrile. HEENT: Pupils are equal. Eyes are moving conjugately. There is no ptosis present. NECK: Supple. NEUROLOGIC: He appeared to be awake, but I could not get him to follow any commands. He never attem pted to verbalize. His cranial nerve exam was grossly intact without any facial asymmetry. Motor ex am: Again, I could not get him to really follow any commands to get any definitive call for any late ralized weakness. No abnormal movements were seen. Plantar responses were upgoing bilaterally. Gai t is not testable. SUMMARY: A middle-aged man has suffered a subarachnoid hemorrhage with some secondary hydrocephalus and seizures. We can get an EEG to rule out any subclinical seizure activity. I agree with your man agement.
[2017-07-11 22:47] LABS: Bilirubin Negative (Negative); Blood, Urine Negative (Negative); Clarity CLEAR (Clear); Glucose, Urine (Dipstick) Negative (Negative); Leukocyte Negative (Negative); Nitrite Negative (Negative); Protein, Urine (Dipstick) Negative (Neg-Trace); Specific Gravity, Urine 1.016 (1.002-1.036); Urobilinogen 0.2 mg/dL (0.2-1.0)
[2017-07-11 22:50] LABS: Bacteria/HPF None Seen HPF (None Seen); Hyaline Casts/LPF 0-3 HYALINE CAST LPF (0-3 Hyaline); RBC/HPF 0-3 HPF (0-3); Squamous Epithelial None Seen HPF (0-3); WBC/HPF 0-3 HPF (0-3)
[2017-07-12] MEDS: Labetalol HCl 100 MG/20 ML VIAL SLOW IVP PRN ×5 (00:29→16:00)
--- NOTE | 2017-07-12 01:10 | CON ---
DATE OF CONSULTATION: 07/11/2017 CHIEF COMPLAINT: Trouble swallowing. HISTORY OF PRESENT ILLNESS: Mr. Hassan is a 47-year-old man who was admitted with headaches and ST elevation CO. He underwent a cardiac catheterization. He was intubated and has subarachnoid hemorr ellen. His hospital course is complicated by acute renal failure, which was improved. He had a saddl e pulmonary embolus identified on 07/05/2017. He has been on heparin drip for that. Due to the suba rachnoid hemorrhage, he has had mental status change and dysphagia. He is deemed unsafe to swallow a ny consistency. He has been tolerating Dobbhoff tube feeds well; however, at this point, he is antic ipated to require longer term feeds and the primary service would like to transition him to a longer acting anticoagulant on the heparin. While he is on the shorter acting heparin then has felt this mi ght be a good time for PEG tube placement. The patient is awake, but not verbally communicative. Hi s is at his bedside. The risks and benefits of PEG tube placement were discussed with her and s he wishes to proceed. PAST MEDICAL HISTORY: Hypertension. PAST SURGICAL HISTORY: Negative. FAMILY HISTORY: Negative for GI malignancy. SOCIAL HISTORY: No alcohol or tobacco. Drug screen was noted to be positive for marijuana. ALLERGIES: IBUPROFEN. MEDICATIONS: Currently include heparin drip, DuoNeb inhaler, carvedilol, D5 1/2 normal saline KVO, l evetiracetam, and pantoprazole. REVIEW OF SYSTEMS: Not obtainable. PHYSICAL EXAMINATION: VITAL SIGNS: Temperature 99.6, pulse has been running in the 109-126 range, blood pressure 141/98. LABORATORY DATA: Creatinine 0.74. INR was 1.5 on admission. PTT 67.7 on heparin drip. White blood cell count 7.8, hemoglobin 10.3, and platelets 314. IMPRESSION: 1. Dysphagia, status post subarachnoid hemorrhage. He is not safe for oral intake by speech patholo gy evaluation. He is tolerating Dobbhoff tube feeds; however, longer term feeding plan is to request ed by the primary service and the family. The risks and benefits of PEG tube placement were discusse d in detail with the patient's and she wishes to proceed. 2. Pulmonary embolism, on heparin drip. RECOMMENDATIONS: 1. Hold heparin drip at 6:00 a.m. for anticipated procedure at noon. 2. Preprocedure antibiotics per SCIP protocol. 3. EGD with percutaneous endoscopic gastrostomy tube placement for tomorrow.
[2017-07-12 06:28] LABS: INR-International Normal Ratio 1.1; Prothrombin Time 14.5 SEC (12.0-14.7)
[2017-07-12 06:29] LABS: PTT 52.8 SEC (22.9-36.1)
[2017-07-12 06:39] LABS: Band 2 % (5-11); Eosinophils 1 % (0-10); Hemoglobin 10.3 g/dL (14.0-18.0); Lymphocytes 31 % (21-51); MDiff Complete? YES; Mean Corpuscular HGB CONC 32.7 g/dL (32.0-36.0); Mean Corpuscular Hemoglobin 32.4 pg (27.0-31.0); Mean Corpuscular Volume 99.1 fl (80.0-94.0); Mean Platelet Volume 7.8 fL (7.4-10.4); Monocytes 13 % (0-10); Neutrophil 53 % (42-75); Nucleated RBC 1 % (0); Platelet Count 338 thou/uL (130-400); Red Blood Cell (RBC) Count 3.18 mill/uL (4.70-6.10); White Blood Cell (WBC) Count 8.2 thou/uL (4.8-10.8)
[2017-07-12 07:58] LABS: ALT (SGPT) 69 U/L (8-55); AST (SGOT) 67 U/L (5-34); Albumin 2.9 g/dL (3.5-5.0); Alkaline Phosphatase 97 U/L (40-150); Anion Gap 15 mmol/L (10-20); BUN (Urea Nitrogen) 17 mg/dL (8.9-20.6); Bilirubin, Total 0.3 mg/dL (0.2-1.2); Calc. Creatinine Clearance 179 mL/min (70-130); Calcium 9.8 mg/dL (7.8-10.44); Carbon Dioxide 24 mmol/L (22-29); Chloride 101 mmol/L (98-107); Estimated GFR-MDRD Greater than 90; Globulin 4.3 g/dL (2.4-3.5); Glucose 90 mg/dL (70-105); Potassium 5.5 mmol/L (3.5-5.1); Protein, Total 7.2 g/dL (6.0-8.3); Sodium 134 mmol/L (136-145)
[2017-07-12] MEDS: Carvedilol 6.25 MG TAB PO SCH ×2 (08:11→17:07)
[2017-07-12] MEDS: hydrALAZINE 25 MG TAB PO SCH ×3 (08:12→20:51)
[2017-07-12] MEDS: Aquaphor 30 GM 99 GM, Cholestyramine/Aspartame 4 GM TOP SCH ×2 (08:12→20:54)
[2017-07-12] MEDS: Pantoprazole 40 MG GRANULES PACKET PER TUBE SCH (08:12)
[2017-07-12] MEDS ORDERED: Lidocaine 1% (PF) 30 ML VIAL ONE (08:36)
[2017-07-12] MEDS ORDERED: Heparin 10,000 UNITS/1 ML VIAL ONE (08:42)
--- NOTE | 2017-07-12 09:23 | PRG ---
DATE OF SERVICE: 07/12/2017 Mr. Hassan remains much more obtunded than he had been earlier in his hospital course. 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 A repeat CT scan performed yesterday showed continued mild progression of ventriculomegaly which I escobar spect has become symptomatic. He has had 2 efforts at CSF diversion in the past, one of which was qu ite helpful. I think we will need to try again with CSF diversion either through a ventriculostomy o r lumbar drainage and I have discussed this with Dr. Johnson. We will plan to do this under general an esthesia during the angiographic procedure today. The patient is at elevated risk given the anticoag ulation.
--- NOTE | 2017-07-12 10:20 | PRG ---
DATE OF SERVICE: 07/12/2017 Mr. Hassan's was in the room today when I was examining him. He is much more awake than he wa s yesterday. He will grunt responses, but will not verbalize any words to me. PHYSICAL EXAMINATION: VITAL SIGNS: His temperature is 99.3 and that has been his maximum temperature in the last 24 hours. Pulse 115, blood pressure 123/82, O2 sat 96% on room air. GENERAL: He does not appear to be in distress. HEENT: Unremarkable except for the Dobbhoff tube in place in his nose. NECK: No JVD. CHEST: Clear without wheezing or rhonchi. CARDIAC: S1 and S2 regular. ABDOMEN: Soft. EXTREMITIES: No edema. LABORATORY DATA: White blood cell count 8.2, hematocrit 31.5, platelet count 338. PTT was 52.8 this morning. Sodium 135, potassium 4.3, chloride 105, CO2 24, BUN 17, creatinine 0.7, glucose 122. ASSESSMENT: 1. Altered mental status which is improved compared to yesterday. 2. Deep venous thrombosis/pulmonary embolus. 3. Status post subarachnoid hemorrhage. 4. Aneurysm. 5. Focal seizures. PLAN: 1. PEG tube placement today. 2. Cerebral angiogram. 3. The patient may have a lumbar drain replaced given his mental status issues over the last several days.
[2017-07-12] MEDS ORDERED: Iopamidol 370 76% 100 ML VIAL ONE (10:56)
[2017-07-12] MEDS ORDERED: Iopamidol 370 76% 50 ML VIAL FS ONE (10:56)
--- NOTE | 2017-07-12 11:04 | PRG ---
DATE OF SERVICE: 07/12/2017 Mr. Hassan is a 47-year-old gentleman admitted nearly 4 weeks ago for a subarachnoid hemorrhage. Arlen johnson has had a very protracted recovery. He had a total of 3 CT angiograms and 1 diagnostic cerebral an giogram to look for source for his hemorrhage. Those were negative with the exception of the most re cent CT angiogram which suggest what may be a possible PCOM aneurysm on the right. I went back and r eviewed the conventional angiogram of this region and it may be that there is a very small aneurysm p resent. As such, our plan is to bring him down today to perform conventional angiography and if feas ible to perform a coiling of the aneurysm. He has also developed hydrocephalus which he has had off and on since his admission. He will need a CSF diversion procedure. We will likely place a ventricu lostomy catheter. I had a lengthy discussion with his today regarding all of these developments as well as the margarita n, which will be cerebral angiography with potential for coiling. I also indicated to her that he wi ll need CSF diversion procedure in the way of ventriculostomy. Our plan is to bring him down, placed him under general anesthesia for the purpose of all those procedures. He will then go back to the [facility] for observation and management of his ventriculostomy. He has been on a heparin drip for pulmonary embolus. We will stop that shortly before our procedure today. We will have to restart that when we feel safe to do so after the ventriculostomy has been pl aced. I reviewed the risks, benefits and alternatives to all these procedures with his today. She has consented already to surgery. I answered all of her questions.
[2017-07-12] MEDS ORDERED: Fentanyl 250 MCG/5 ML VIAL ONE (11:05)
[2017-07-12] MEDS ORDERED: Lidocaine 1% w/Epinephrine 1:100K 20 ML VIAL ONE (14:03)
[2017-07-12] MEDS ORDERED: Propofol 1,000 MG/100 ML VIAL IV ONE (14:08)
[2017-07-12] MEDS ORDERED: PROPOFOL 200 MG/20 ML VIAL ONE (15:21)
[2017-07-12] MEDS ORDERED: PHENYLEPHRINE-NS 100 MCG/ML 10 ML SYRINGE ONE (15:21)
[2017-07-12] MEDS ORDERED: Lidocaine 1% PF 5 ML VIAL ONE (15:21)
[2017-07-12] MEDS ORDERED: ePHEDrine/0.9% NaCl/PF SYRINGE 50 mg/10 ml ONE (15:21)
[2017-07-12] MEDS ORDERED: CCU Electrolyte Replacement 1 EACH FS SCH (15:31)
[2017-07-12] MEDS ORDERED: Morphine 4 MG/ML VIAL SLOW IVP PRN (15:40)
[2017-07-12] MEDS ORDERED: Fentanyl BOLUS 250 ML IVPB PRN (15:40)
[2017-07-12] MEDS ORDERED: fentaNYL Citrate/PF 2,000 MCG in Sodium Chloride 0.9% 60 ML IV SCH (15:40)
[2017-07-12] MEDS ORDERED: DISCONTINUE PREVIOUS NARCOTIC PAIN MEDICATIONS AND BENZODIAZEPINES FS SCH (15:40)
[2017-07-12] MEDS ORDERED: Propofol BOLUS 1,000 MG/100 ML VIAL IV PRN (15:40)
[2017-07-12] MEDS ORDERED: Lorazepam 2 MG/ML VIAL SLOW IVP PRN (15:40)
[2017-07-12] MEDS ORDERED: Potassium Phosphate 9 MMOL in Sodium Chloride 0.9% 100 ML IVPB PRN (15:43)
[2017-07-12] MEDS ORDERED: CCU ELECTROLYTE REPLACEMENT PROTOCOL FS PRN (15:43)
[2017-07-12] MEDS ORDERED: Potassium Phosphate 15 MMOL in Sodium Chloride 0.9% 250 ML 250 ML IV PRN (15:43)
[2017-07-12] MEDS ORDERED: Potassium Phosphate 12 MMOL in Sodium Chloride 0.9% 250 ML 250 ML IV PRN (15:43)
[2017-07-12] MEDS ORDERED: Magnesium Oxide 400 MG TAB PO PRN ×2 (15:43)
[2017-07-12] MEDS ORDERED: Potassium Chloride 20 MEQ TAB PO PRN (15:43)
[2017-07-12] MEDS ORDERED: Potassium Chloride 40 MEQ in Premix Bag 1 BAG IVPB PRN (15:43)
[2017-07-12] MEDS ORDERED: Potassium Chloride 40 MEQ in Sodium Chloride 0.9% 250 ML 250 ML IVPB PRN (15:43)
[2017-07-12] MEDS ORDERED: Magnesium 2 GM/NS 0.9% 100 ML 2 GM in Premix Bag 1 BAG IVPB PRN (15:43)
[2017-07-12] MEDS ORDERED: Ventilator Sedation Protocol 1 EACH FS SCH (15:45)
--- NOTE | 2017-07-12 16:12 | RAD ---
CHEST ONE VIEW: History: Intubated. Comparison: 07-11-17 FINDINGS: Cardiac silhouette is magnified by projection. Shallow inspiration accentuates pulmonary markings. Ti p of an endotracheal catheter overlies the thoracic inlet. Feeding catheter is partially visualized. No lobar consolidation or evidence of pneumothorax. IMPRESSION: Tip of the endotracheal catheter is in good radiographic position. Other findings are stable. POS: OFF
[2017-07-12 16:43] LABS: Actual Bicarbonate (HCO3a) 26.7 mEq/L (22-26); Base Excess (BEa) 2.5 mEq/L (0 (+/-) 2.5); CO2 Tension 39.7 mmHg (35.0-45.0); Hematocrit-ABG 30.6 % (42.0-52.0); Hemoglobin (Hb) 9.3 g/dL (14.0-18.0); O2 Tension (PaO2) 167.5 mmHg (80.0-100.0); pH, Arterial 7.45 (7.35-7.45)
[2017-07-12 16:44] LABS: ALV-art Gradient 210.675 (0-20); Calcium, Ionized 1.3 mmol/L (1.12-1.30); Puncture Site LINE
--- NOTE | 2017-07-12 17:02 | PDOC.PN ---
- Subjective Encounter Start Date: 07/12/17 Encounter Start Time: 09:05 Subjective: f/u for SAH, hydrocephalus and seizures. Plan for CTA brain and potential -: coiling procedure for intracerebral aneurysm and ventriculostomy for hydro- -: cephalus. No facial twitching noted today. - Objective MAR Reviewed: Yes Vital Signs & Weight: Vital Signs (12 hours) Temp Pulse Resp BP BP Pulse Ox 07/12/17 16:07 92 167/90 H 07/12/17 16:00 98 175/90 H 07/12/17 15:59 99 169/88 H 07/12/17 14:00 94 27 H 07/12/17 13:48 89 153/85 H 07/12/17 08:12 115 H 123/82 07/12/17 08:11 123/82 07/12/17 08:01 106 H 15 96 07/12/17 08:00 99.3 F 115 H 15 07/12/17 07:40 99.3 F 106 H 18 123/82 96 Weight Admit Weight 234 lb 2.095 oz Weight 229 lb 1.6 oz Most Recent Monitor Data Heart Rate from ECG 99 NIBP 148/100 NIBP BP-Mean 118 Respiration from ECG 16 SpO2 100 I&O: 07/11/17 07/12/17 07/13/17 06:59 06:59 06:59 Intake Total 1419 5085 Balance 1419 5085 Result Diagrams: 07/12/17 05:56 07/12/17 05:56 Radiology Reviewed by me: Yes (PCXR - 07/11/17 - no acute process, NGT in place) EKG Reviewed by me: Yes (Tele - Sinus tachycardia) Phys Exam - Physical Examination lethargic, opens eyes briefly, does not follow commands, grunts NGT in place HEENT: PERRLA, moist MMs, sclera anicteric, oral pharynx no lesions Neck: no nodes, no JVD, supple few scattered rhonchi Respiratory: no wheezing, no rales, clear to auscultation bilateral Tachycardia S1, S2 Cardiovascular: no significant murmur, no rub, gallop Gastrointestinal: soft, non-tender, no distention, positive bowel sounds Musculoskeletal: no edema, pulses present spontaneous movement L hand and UE aphasic Skin: no rash, normal turgor, cap refill <2 seconds Dx/Plan (1) DVT, bilateral lower limbs Code(s): I82.403 - ACUTE EMBOLISM AND THOMBOS UNSP DEEP VEINS OF LOW EXTRM, BI Status: Acute Comment: Heparin gtt as outlined below, OAC when stabilizing and likely PEG route available, Heparin on hold pending potential coiling and ventriculostomy today (2) Pulmonary embolism Code(s): I26.99 - OTHER PULMONARY EMBOLISM WITHOUT ACUTE COR PULMONALE Status : Acute Qualifiers: Chronicity: acute Comment: multiple emboli noted on CTA, continue Heparin gtt wtih PTT 50-70 due to SAH, see above (3) SAH (subarachnoid hemorrhage) Code(s): I60.9 - NONTRAUMATIC SUBARACHNOID HEMORRHAGE, UNSPECIFIED Status: Acute Comment: s/p EVD per NS.Failed coiling attempt, Repeat CT Brain given heparin gtt and SAH, plan for coiling with CT angio today and ventriculostomy (4) Seizure as late effect of cerebrovascular accident (CVA) Code(s): I69.398 - OTHER SEQUELAE OF CEREBRAL INFARCTION; R56.9 - UNSPECIFIED CONVULSIONS Status: Acute Comment: Increase Keppra 750mg IV q12h, consult Neurology service for evaluation (5) Dysphagia Code(s): R13.10 - DYSPHAGIA, UNSPECIFIED Status: Acute Qualifiers: Dysphagia type: oropharyngeal phase Qualified Code(s): R13.12 - Dysphagia, oropharyngeal phase Comment: Nutritional support Jevity 1.2 @ 60ml/h, free-H2O flushes 60ml q4h, serial PRECISION INSPECTOR assessment, GI consult for PEG tube placement (6) Sinus tachycardia Code(s): R00.0 - TACHYCARDIA, UNSPECIFIED Status: Acute Comment: Etiology unclear, suspect neuro-mediated, increase Coreg 6.25mg BID, repeat PCXR to r/o infiltrate - Plan plan discussed w/ family, PT/OT, director social, speech therapy, respiratory therapy, DVT proph w/SCDs Continue supportive mgmt -: Appreciate GI and Neurology assistance -: Plan for PEG tube once neurologic procedures completed -: Hold Heparin gtt -: Continue Keppra 750mg IV q12h * EEG pending * PCXR in am
[2017-07-12] MEDS: Sodium Chloride 0.9% 1,000 ML IV SCH (17:07)
--- NOTE | 2017-07-12 17:44 | PRG ---
DATE OF SERVICE: 07/12/2017 SUBJECTIVE: The patient has been intubated and underwent an angiography; therefore, PEG tube was can celed. OBJECTIVE: VITAL SIGNS: Pulse is 93, respiratory rate is 12, blood pressure is 151/84. HEENT: Significant for a surgery to the top of the head, endotracheal tube. CHEST: Clear. CARDIOVASCULAR: Regular rate and rhythm. ABDOMEN: Benign. LABORATORY DATA: Shows a white blood cell count 8.2, hemoglobin 10.3, hematocrit 31.5. Chemistries, significant for sodium of 134, potassium of 5.5, AST of 67, ALT of 69. ASSESSMENT: 1. Oropharyngeal dysphagia secondary to subarachnoid hemorrhage. 2. Pulmonary embolism. RECOMMENDATIONS: 1. Resume tube feedings until midnight. 2. Percutaneous endoscopic gastrostomy tomorrow before resumption of heparin drip.
[2017-07-12 18:25] LABS: Hemoglobin 9.4 g/dL (14.0-18.0); Platelet Count 299 thou/uL (130-400)
[2017-07-12] MEDS: CEFAZOLIN/Water 2 GM/20 ML SYRINGE SLOW IVP SCH (20:23)
--- NOTE | 2017-07-12 21:12 | CCL ---
SURGEONS: Compa Johnson M.D. BOWLING FLOOR DESK CLERK: None. INDICATIONS: Aneurysmal subarachnoid hemorrhage. DIAGNOSIS: Aneurysmal subarachnoid hemorrhage. PROCEDURE: Cerebral angiogram with endovascular treatment of the right PCOM region aneurysm. ANESTHESIA: General. TECHNIQUE: The patient was brought into the angiogram suite and placed on the table in supine position. He was placed under general anesthesia. His right groin was prepped and draped in the usual sterile fashion . 1% lidocaine was used to inject the right groin. A 5 Greek micropuncture set was used to gain ac cess to right common femoral artery. Using the Seldinger technique, a 5-Greek shuttle select guide catheter was passed over 130 cm diagnostic catheter which was passed over an 0.035 angled Glidewire. The right internal carotid artery was selectively catheterized and the shuttle was placed within lexie t vessel. A 3D rotational angiogram was then performed as well as AP and lateral angiograms. A smal l PCOM region aneurysm was identified measuring approximately 2 x 3 mm. An Danforth 10 microcatheter which was then passed over transcend microguidewire was then advanced into the guide and then eventua lly placed within the dome of the PCOM region aneurysm. The aneurysm was coiled until there was charlie is of flow and no filling of the aneurysm. Control angiogram was then performed. All catheters were then removed. Hemostasis was maintained with manual compression. The procedure came to an end with out complication. IMPRESSION: Cervical angiography via the right internal carotid artery reveals the presence of a small PCOM regio n aneurysm which measures roughly 2 x 3 mm. The patient underwent successful coiling of the aneurysm .
[2017-07-13] MEDS: Sodium Chloride 0.9% 1,000 ML IV SCH ×3 (01:10→22:00)
[2017-07-13] MEDS: CEFAZOLIN/Water 2 GM/20 ML SYRINGE SLOW IVP SCH ×4 (01:10→23:30)
[2017-07-13] MEDS: Propofol 1,000 MG/100 ML VIAL IV PRN ×5 (01:12→23:48)
[2017-07-13 04:47] LABS: #Eosinphils 0.3 thou/uL (0.0-0.7); #Lymphocytes 1.3 thou/uL (1.20-3.40); #Monocytes 0.7 thou/uL (0.11-0.59); #Neutrophils 4.9 thou/uL (1.40-6.50); %Basophils 0.1 % (0.0-1.0); %Eosinophils 4.4 % (0.0-10.0); %Lymphocytes 18.2 % (21.0-51.0); %Neutrophils 68.3 % (42.0-75.0); Hemoglobin 9.2 g/dL (14.0-18.0); Mean Corpuscular HGB CONC 32.6 g/dL (32.0-36.0); Mean Corpuscular Hemoglobin 32.3 pg (27.0-31.0); Mean Corpuscular Volume 99.3 fl (80.0-94.0); Mean Platelet Volume 7.4 fL (7.4-10.4); Platelet Count 300 thou/uL (130-400); RBC Distribution Width 15.4 % (11.5-14.5); Red Blood Cell (RBC) Count 2.83 mill/uL (4.70-6.10); White Blood Cell (WBC) Count 7.2 thou/uL (4.8-10.8)
[2017-07-13 04:58] LABS: Anion Gap 11 mmol/L (10-20); BUN (Urea Nitrogen) 15 mg/dL (8.9-20.6); Calc. Creatinine Clearance 207 mL/min (70-130); Calcium 9.3 mg/dL (7.8-10.44); Carbon Dioxide 27 mmol/L (22-29); Chloride 104 mmol/L (98-107); Estimated GFR-MDRD Greater than 90; Glucose 92 mg/dL (70-105); Potassium 4.3 mmol/L (3.5-5.1); Sodium 138 mmol/L (136-145)
[2017-07-13 07:25] LABS: Actual Bicarbonate (HCO3a) 27.4 mEq/L (22-26); Base Excess (BEa) 3.1 mEq/L (0 (+/-) 2.5); CO2 Tension 40.6 mmHg (35.0-45.0); Hematocrit-ABG 28.5 % (42.0-52.0); Hemoglobin (Hb) 9.1 g/dL (14.0-18.0); pH, Arterial 7.45 (7.35-7.45)
[2017-07-13 07:26] LABS: Calcium, Ionized 1.2 mmol/L (1.12-1.30); Puncture Site ALINE
--- NOTE | 2017-07-13 08:22 | PRG ---
DATE OF SERVICE: 07/13/2017 Thirty-five minutes critical care time. The patient remains intubated on mechanical ventilation after a shunt placement in the OR yesterday. He also had a drain placed. He is awake. He awakens easily and follows commands for nursing staff. He is scheduled to have a PEG tube placement later today. PHYSICAL EXAMINATION: VITAL SIGNS: His temperature is 98.8, pulse 91, blood pressure 105/74. Total intake 2307, output 26 06. HEENT: Unremarkable. NECK: No JVD. He is making gurgling sounds with air coming around the cuff of the ET tube. LUNGS: Clear. CARDIAC: S1 and S2 regular. ABDOMEN: Soft. EXTREMITIES: No edema. LABORATORY DATA: The x-ray shows clear lung parra, but ET tube is too high. PH 7.45, pCO2 40, pO2 125 on SIMV rate 12, tidal 500, PEEP 5, pressure support 10, FiO2 40%. White blood cell count 7.2, h ematocrit 28.1, platelet count 300. Sodium 130, potassium 4.3, chloride 104, CO2 of 27, BUN 15, crea tinine 0.6, glucose 92. ASSESSMENT: 1. Subarachnoid hemorrhage. 2. Multiple episodes of increased intracranial pressure requiring drainage and now shunt placement. 3. Status post deep venous thrombosis and pulmonary embolus. 4. Generalized failure to thrive. PLAN: 1. Extubate once the PEG tube is placed. 2. Discontinue A line once PEG tube is placed. 3. Resume heparin drip when okay with GI and Neurosurgery.
--- NOTE | 2017-07-13 08:35 | RAD ---
CHEST 1 VIEW: HISTORY: Dyspnea. Intubated. Followup. COMPARISON: 07/12/17. FINDINGS: Cardiac silhouette remains magnified and enlarged. Pulmonary vasculature is now slightly engorged wi th increasing reticulonodular interstitial markings throughout each lung. Mediastinum is midline. L iens and tubes appear unchanged in position. No evidence of pneumothorax. IMPRESSION: Increasing pulmonary vascular congestion. POS: [facility]
[2017-07-13] MEDS: Pantoprazole 40 MG GRANULES PACKET PER TUBE SCH (09:36)
[2017-07-13] MEDS: Carvedilol 6.25 MG TAB PO SCH ×2 (09:36→17:50)
[2017-07-13] MEDS: hydrALAZINE 25 MG TAB PO SCH ×3 (09:36→21:50)
[2017-07-13] MEDS: Aquaphor 30 GM 99 GM, Cholestyramine/Aspartame 4 GM TOP SCH ×2 (09:41→21:00)
--- NOTE | 2017-07-13 17:25 | PDOC.PN ---
- Subjective Encounter Start Date: 07/13/17 Encounter Start Time: 15:05 Subjective: f/u for SAH, s/p ventriculostomy drain. [facility] -: with plans for PEG tube placement this pm. Minimal response to commands -: but alert per nursing. - Objective MAR Reviewed: Yes Vital Signs & Weight: Vital Signs (12 hours) Temp Pulse Resp BP Pulse Ox 07/13/17 16:00 98.5 F 12 07/13/17 14:29 100 12 128/59 L 96 07/13/17 14:00 12 07/13/17 12:00 98.5 F 12 07/13/17 10:45 91 118/59 L 07/13/17 10:00 12 07/13/17 09:36 108 H 135/67 07/13/17 08:00 17 07/13/17 07:45 98.8 F 108 H 12 97 07/13/17 07:00 98.8 F 07/13/17 06:55 91 128/61 07/13/17 06:54 86 12 98 07/13/17 06:00 14 Weight Admit Weight 234 lb 2.095 oz Weight 223 lb 15.834 oz Most Recent Monitor Data Heart Rate from ECG 96 NIBP 120/86 NIBP BP-Mean 101 Respiration from ECG 14 SpO2 98 I&O: 07/12/17 07/13/17 07/14/17 06:59 06:59 06:59 Intake Total 5085 2307 Output Total 0251 1722 Balance 2989 -645 -1639 Result Diagrams: 07/13/17 04:39 07/13/17 04:39 Additional Labs: Laboratory Tests 07/08/17 07/09/17 07/09/17 08:41 04:39 16:05 Hgb APTT 69.9 H 68.6 H 84.7 H Potassium 07/09/17 07/10/17 07/10/17 23:23 05:22 11:47 Hgb APTT 61.1 H 63.5 H 63.4 H Potassium 07/12/17 07/12/17 07/12/17 05:56 05:56 18:20 Hgb 10.3 L 9.4 L APTT Potassium 5.5 H Radiology Reviewed by me: Yes (PCXR - pulm vasc prominence, lines/tubes in place ) EKG Reviewed by me: Yes (Tele - Sinus tachycardia) Phys Exam - Physical Examination Constitutional: NAD eyes open, tracks to voice, blinks ETT in place HEENT: PERRLA, moist MMs, sclera anicteric, oral pharynx no lesions Neck: no nodes, no JVD, supple diminished in bases, scattered rhonchi Respiratory: no wheezing, no rales tachycardic S1, S2 Cardiovascular: no significant murmur, no rub, gallop Gastrointestinal: soft, non-tender, no distention, positive bowel sounds Musculoskeletal: no edema, pulses present minimal movement with R thumb and R great toe to command Skin: no rash, normal turgor, cap refill <2 seconds Deviation from normal: Ta in place with nicole urine Dx/Plan (1) DVT, bilateral lower limbs Code(s): I82.403 - ACUTE EMBOLISM AND THOMBOS UNSP DEEP VEINS OF LOW EXTRM, BI Status: Acute Comment: Heparin gtt on hold, OAC when stabilizing and likely PEG route available (2) Pulmonary embolism Code(s): I26.99 - OTHER PULMONARY EMBOLISM WITHOUT ACUTE COR PULMONALE Status : Acute Qualifiers: Chronicity: acute Comment: multiple emboli noted on CTA, OAC when PEG site established (3) SAH (subarachnoid hemorrhage) Code(s): I60.9 - NONTRAUMATIC SUBARACHNOID HEMORRHAGE, UNSPECIFIED Status: Acute Comment: s/p EVD per NS.Failed coiling attempt, s/p ventriculostomy with EVD (4) Seizure as late effect of cerebrovascular accident (CVA) Code(s): I69.398 - OTHER SEQUELAE OF CEREBRAL INFARCTION; R56.9 - UNSPECIFIED CONVULSIONS Status: Acute Comment: Increase Keppra 750mg IV q12h, consult Neurology service for evaluation (5) Dysphagia Code(s): R13.10 - DYSPHAGIA, UNSPECIFIED Status: Acute Qualifiers: Dysphagia type: oropharyngeal phase Qualified Code(s): R13.12 - Dysphagia, oropharyngeal phase Comment: Nutritional support Jevity 1.2 @ 60ml/h, free-H2O flushes 60ml q4h, serial APPRENTICE ARCHITECT assessment, GI consult for PEG tube placement today (6) Sinus tachycardia Code(s): R00.0 - TACHYCARDIA, UNSPECIFIED Status: Acute Comment: Etiology unclear, suspect neuro-mediated, increase Coreg 6.25mg BID, consider titrating Coreg after extubation - Plan PT/OT, social media developer, speech therapy, respiratory therapy, DVT proph w/SCDs Continue supportive measures -: Pulmonary support with mech ventilation, likely attempt extubation in 24h -: Continue Keppra 750mg IV q12h -: Continue Protonix 40mg IV daily -: PEG tube placement planned for today * AM lab: BMP, CBC * PCXR in am
[2017-07-14 05:30] LABS: Anion Gap 8 mmol/L (10-20); BUN (Urea Nitrogen) 13 mg/dL (8.9-20.6); Calc. Creatinine Clearance 186 mL/min (70-130); Calcium 9.1 mg/dL (7.8-10.44); Carbon Dioxide 29 mmol/L (22-29); Chloride 106 mmol/L (98-107); Estimated GFR-MDRD Greater than 90; Glucose 102 mg/dL (70-105); Potassium 4.1 mmol/L (3.5-5.1); Sodium 139 mmol/L (136-145)
[2017-07-14 07:26] LABS: Puncture Site LRA
[2017-07-14 07:27] LABS: ALV-art Gradient 138.725 (0-20); Actual Bicarbonate (HCO3a) 26.7 mEq/L (22-26); Base Excess (BEa) 2.2 mEq/L (0 (+/-) 2.5); CO2 Tension 41.1 mmHg (35.0-45.0); Hematocrit-ABG 20.8 % (42.0-52.0); Hemoglobin (Hb) 6.2 g/dL (14.0-18.0); O2 Tension (PaO2) 95.1 mmHg (80.0-100.0); pH, Arterial 7.43 (7.35-7.45)
[2017-07-14 07:28] LABS: Calcium, Ionized 1.3 mmol/L (1.12-1.30)
--- NOTE | 2017-07-14 08:19 | RAD ---
PORTABLE CHEST: HISTORY: Dyspnea. CCU followup. COMPARISON: 07/13/17. FINDINGS: ET tube remains in place. NG tube has been removed. There is hazy atelectasis and/or infiltrate in the right mid and lower lung. The left lung appears clear. No significant change from yesterday. POS: [facility]
[2017-07-14] MEDS: Sodium Chloride 0.9% 1,000 ML IV SCH ×2 (08:23→17:58)
--- NOTE | 2017-07-14 08:41 | PRG ---
DATE OF SERVICE: 07/14/2017 Thirty-five minute critical care time. Mr. Hassan remains intubated on mechanical ventilation. A PEG tube placed late yesterday. This mo rning I find him awake, alert, following commands for me. PHYSICAL EXAMINATION: VITAL SIGNS: His temperature is 98.6, pulse 93, blood pressure 111/76. 24 hour intake 3334, output 3104. HEENT: Unremarkable. NECK: No JVD. LUNGS: Clear anteriorly. CARDIOVASCULAR: S1 and S2 regular. ABDOMEN: Soft, nontender. EXTREMITIES: No edema. LABORATORY DATA: ABG; pH 7.43, pCO2 of 41, pO2 of 95 on SIMV rate 12, tidal volume 500, PEEP 5, pres sure support 10, FiO2 40%. Sodium 139, potassium 4.1, chloride 106, CO2 29, BUN 13, creatinine 0.7, glucose 102. White blood cell of 7.2, hematocrit 28.1, platelet count 300. ASSESSMENT: 1. Acute respiratory failure requiring mechanical ventilation. 2. Status post subarachnoid hemorrhage with multiple incidents of recurrent intracranial hypertensio n. 3. Seizures. 4. Malignant hypertension. 5. Deep venous thrombosis/pulmonary embolism. PLAN: 1. Restart heparin drip. 2. Extubate and observe. 3. Tube feeds infusing to the PEG that was placed yesterday. 4. Discontinue Ancef when okay with Neurosurgery.
[2017-07-14] MEDS: hydrALAZINE 25 MG TAB PO SCH ×3 (09:01→21:00)
[2017-07-14] MEDS: Carvedilol 6.25 MG TAB PO SCH ×2 (09:01→17:57)
[2017-07-14] MEDS: Pantoprazole 40 MG GRANULES PACKET PER TUBE SCH (09:02)
[2017-07-14] MEDS: Aquaphor 30 GM 99 GM, Cholestyramine/Aspartame 4 GM TOP SCH ×2 (09:03→21:00)
[2017-07-14] MEDS: CEFAZOLIN/Water 2 GM/20 ML SYRINGE SLOW IVP SCH ×4 (10:00→19:40)
--- NOTE | 2017-07-14 16:59 | PRG ---
DATE OF SERVICE: 07/14/2017 SUBJECTIVE: Mr. Hassan has been extubated. He is actually alert and seems responsive. I explaine d to him his PEG tube situation. In fact, we can remove it when he no longer needs it. Nurse notes he is tolerating tube feeds. PHYSICAL EXAMINATION: VITAL SIGNS: Pulse 115, blood pressure is 114/85, and temperature is 98.4. ABDOMEN: PEG tube this was loosened. Seems clean and dry with no erythema. ASSESSMENT: Percutaneous endoscopic gastrostomy tube in place, tolerating tube feeds, jazmin chiu PLAN: This needs to be washed and cleaned with soap and water daily, explained this with the nurses. At this time, we will follow from a distance. If he needs further assistance, please do not hesita te to contact us. When he no longer needs the PEG, we can remove it in the office.
--- NOTE | 2017-07-14 18:37 | PDOC.PN ---
- Subjective Encounter Start Date: 07/14/17 Encounter Start Time: 18:30 Subjective: f/u for SAH s/p ventriculostomy and coiling PCOM small aneurysm. -: Extubated and s/p PEG placement but TF's on hold. - Objective MAR Reviewed: Yes Vital Signs & Weight: Vital Signs (12 hours) Temp Pulse Pulse Pulse Resp BP BP 07/14/17 18:14 124 H 20 07/14/17 17:57 121/71 07/14/17 15:35 116 H 124/83 07/14/17 14:31 119 H 120 H 125/84 07/14/17 13:11 115 H 20 07/14/17 12:00 98.4 F 07/14/17 09:01 110 H 121/85 07/14/17 08:00 98.9 F 108 H 18 07/14/17 07:45 07/14/17 07:03 92 131/91 H 07/14/17 07:02 97 12 BP Pulse Ox Pulse Ox Pulse Ox 07/14/17 18:14 99 07/14/17 17:57 07/14/17 15:35 07/14/17 14:31 129/92 H 99 98 07/14/17 13:11 99 07/14/17 12:00 100 07/14/17 09:01 07/14/17 08:00 98 07/14/17 07:45 99 07/14/17 07:03 07/14/17 07:02 99 Weight Admit Weight 234 lb 2.095 oz Weight 224 lb 10.417 oz Most Recent Monitor Data Heart Rate from ECG 128 NIBP 119/78 NIBP BP-Mean 92 Respiration from ECG 17 SpO2 98 I&O: 07/13/17 07/14/17 07/15/17 06:59 06:59 06:59 Intake Total 2307 3334 223.3 Output Total 2606 3104 1245 Balance -299 230 -1021.7 Result Diagrams: 07/13/17 04:39 07/14/17 05:08 Additional Labs: Laboratory Tests 07/08/17 07/09/17 07/09/17 08:41 04:39 16:05 Hgb APTT 69.9 H 68.6 H 84.7 H Potassium 07/09/17 07/10/17 07/10/17 23:23 05:22 11:47 Hgb APTT 61.1 H 63.5 H 63.4 H Potassium 07/12/17 07/12/17 05 05:56 05:56 18:20 Hgb 10.3 L 9.4 L APTT Potassium 5.5 H Radiology Reviewed by me: Yes (PCXR - haziness in R mid lung zone) EKG Reviewed by me: Yes (Tele - Sinus tachycardia) Phys Exam - Physical Examination Constitutional: NAD awake, alert, nods intermittently to questions Ventriculostomy in place HEENT: PERRLA, moist MMs, sclera anicteric, oral pharynx no lesions Neck: no nodes, no JVD, supple diminished in bases, occasional rhonchi Respiratory: no wheezing, no rales tachycardic S1, S2 Cardiovascular: no significant murmur, no rub, gallop PEG in place Gastrointestinal: soft, non-tender, no distention, positive bowel sounds Musculoskeletal: no edema, pulses present minimal movement of bilat LE's, mild tar heat exchanger cleaner strength bilat expressive dysphasia Skin: no rash, normal turgor, cap refill <2 seconds Dx/Plan (1) DVT, bilateral lower limbs Code(s): I82.403 - ACUTE EMBOLISM AND THOMBOS UNSP DEEP VEINS OF LOW EXTRM, BI Status: Acute Comment: Heparin gtt resumed, OAC when stabilizing and likely PEG route available (2) Pulmonary embolism Code(s): I26.99 - OTHER PULMONARY EMBOLISM WITHOUT ACUTE COR PULMONALE Status : Acute Qualifiers: Chronicity: acute Comment: multiple emboli noted on CTA, OAC when PEG site established (3) SAH (subarachnoid hemorrhage) Code(s): I60.9 - NONTRAUMATIC SUBARACHNOID HEMORRHAGE, UNSPECIFIED Status: Acute Comment: s/p EVD per NS.s/p coiling PCOM region aneurysm, s/p ventriculostomy with EVD (4) Seizure as late effect of cerebrovascular accident (CVA) Code(s): I69.398 - OTHER SEQUELAE OF CEREBRAL INFARCTION; R56.9 - UNSPECIFIED CONVULSIONS Status: Acute Comment: Increase Keppra 750mg IV q12h, consult Neurology service for evaluation (5) Dysphagia Code(s): R13.10 - DYSPHAGIA, UNSPECIFIED Status: Acute Qualifiers: Dysphagia type: oropharyngeal phase Qualified Code(s): R13.12 - Dysphagia, oropharyngeal phase Comment: TF's on hold currently, free-H2O flushes 60ml q4h, serial DOG OR ANIMAL SITTER assessment, s/p PEG placement (6) Sinus tachycardia Code(s): R00.0 - TACHYCARDIA, UNSPECIFIED Status: Acute Comment: Etiology unclear, suspect neuro-mediated, increase Coreg 6.25mg BID, consider titrating Coreg after extubation - Plan continue antibiotics, PT/OT, social services director, speech therapy, DVT proph w/SCDs Continue aggressive supportive measures -: EVD monitoring for ICP -: Heparin gtt restarted -: Nutritional support Jevity 1.2 -: AM lab: BMP, H/H with platelet * .
[2017-07-14 19:21] LABS: Hemoglobin 9.2 g/dL (14.0-18.0); Platelet Count 283 thou/uL (130-400)
[2017-07-14] MEDS: Heparin 25,000 units/D5W 500 ML IVPB SCH (22:00)
[2017-07-15] MEDS: CEFAZOLIN/Water 2 GM/20 ML SYRINGE SLOW IVP SCH ×3 (00:28→18:28)
[2017-07-15] MEDS: Sodium Chloride 0.9% 1,000 ML IV SCH ×2 (03:23→13:23)
[2017-07-15 05:27] LABS: Anion Gap 13 mmol/L (10-20); BUN (Urea Nitrogen) 14 mg/dL (8.9-20.6); Calc. Creatinine Clearance 182 mL/min (70-130); Calcium 9.4 mg/dL (7.8-10.44); Carbon Dioxide 26 mmol/L (22-29); Chloride 107 mmol/L (98-107); Estimated GFR-MDRD Greater than 90; Glucose 101 mg/dL (70-105); Potassium 3.7 mmol/L (3.5-5.1); Sodium 142 mmol/L (136-145)
[2017-07-15] MEDS: Carvedilol 6.25 MG TAB PO SCH ×2 (08:26→17:07)
[2017-07-15] MEDS: Pantoprazole 40 MG GRANULES PACKET PER TUBE SCH (08:26)
[2017-07-15] MEDS: hydrALAZINE 25 MG TAB PO SCH ×3 (08:26→21:20)
[2017-07-15] MEDS: Aquaphor 30 GM 99 GM, Cholestyramine/Aspartame 4 GM TOP PRN (08:28)
[2017-07-15] MEDS: Aquaphor 30 GM 99 GM, Cholestyramine/Aspartame 4 GM TOP SCH ×2 (08:29→21:21)
--- NOTE | 2017-07-15 09:33 | PRG ---
DATE OF SERVICE: 07/15/2017 SUBJECTIVE: Mr. Marcos Hassan remains unresponsive. Eyes open, in the ICU, status post ventriculo stomy tube, status post subarachnoid hemorrhage. OBJECTIVE: VITAL SIGNS: Pulse blood pressure 121/71, respiration rate 18, sats 98%. CHEST: Reveals decreased breath sounds, no wheezing. CARDIAC: Normal S1, S2, no gallops. ABDOMEN: Soft, no masses. X-RAY FINDINGS: Last chest x-ray showed some atelectatic changes, but no other acute infiltrates. IMPRESSION: 1. Respiratory failure, off mechanical ventilation. 2. Subarachnoid hemorrhage. 3. Seizures. 4. Hypertension. 5. History of deep venous thrombosis and pulmonary embolism on IV heparin. PLAN: Continue PEG. Continue observation in the ICU. Continue supportive care, nutrition, PT. We will follow while in the ICU.
--- NOTE | 2017-07-15 14:20 | PDOC.PN ---
- Subjective Encounter Start Date: 07/15/17 Encounter Start Time: 14:19 Subjective: opens eyes and follows simple commands like finger/toe wiggle -: otherwise unresponsive - Objective MAR Reviewed: Yes Vital Signs & Weight: Vital Signs (12 hours) Temp Pulse Pulse Pulse Resp BP BP 07/15/17 14:14 106 H 07/15/17 13:05 106 H 18 07/15/17 12:00 98.9 F 07/15/17 10:02 107 H 111 H 124/87 07/15/17 08:26 108 H 121/71 07/15/17 08:00 98.7 F 106 H 18 07/15/17 06:52 07/15/17 06:50 108 H 14 07/15/17 04:00 98.2 F BP Pulse Ox 07/15/17 14:14 07/15/17 13:05 99 07/15/17 12:00 07/15/17 10:02 116/88 07/15/17 08:26 07/15/17 08:00 98 07/15/17 06:52 99 07/15/17 06:50 99 07/15/17 04:00 Weight Admit Weight 234 lb 2.095 oz Weight 223 lb 5.252 oz Most Recent Monitor Data Heart Rate from ECG 108 NIBP 129/90 NIBP BP-Mean 108 Respiration from ECG 17 SpO2 98 I&O: 07/14/17 07/15/17 07/16/17 06:59 06:59 06:59 Intake Total 3334 3859.3 Output Total 3104 2397 548 Balance 230 1462.3 -548 Result Diagrams: 07/14/17 19:15 07/15/17 05:00 Additional Labs: Microbiology 07/05/17 15:19 Stool C. difficile GDH Antigen & Toxins - Final 07/02/17 12:10 Lumbar Body Fluid Culture - Final 06/17/17 14:05 Sputum Respiratory Culture - Final Staphylococcus aureus Phys Exam - Physical Examination Constitutional: NAD opens eyes but does not follow HEENT: PERRLA, moist MMs, sclera anicteric, oral pharynx no lesions Neck: no JVD Respiratory: no wheezing, no rales, no rhonchi, clear to auscultation bilateral Cardiovascular: RRR, no significant murmur Gastrointestinal: soft, non-tender, no distention, positive bowel sounds Musculoskeletal: pulses present, edema present able to move fingers b/l.left leg weaker Skin: no rash Dx/Plan (1) Pulmonary embolism Code(s): I26.99 - OTHER PULMONARY EMBOLISM WITHOUT ACUTE COR PULMONALE Status : Acute Qualifiers: Chronicity: acute Comment: multiple emboli noted on CTA, OAC when PEG site established (2) DVT, bilateral lower limbs Code(s): I82.403 - ACUTE EMBOLISM AND THOMBOS UNSP DEEP VEINS OF LOW EXTRM, BI Status: Acute Comment: Heparin gtt resumed, OAC when stabilizing and likely PEG route available (3) SAH (subarachnoid hemorrhage) Code(s): I60.9 - NONTRAUMATIC SUBARACHNOID HEMORRHAGE, UNSPECIFIED Status: Acute Comment: s/p EVD per NS.s/p coiling PCOM region aneurysm, s/p ventriculostomy with EVD (4) Seizure as late effect of cerebrovascular accident (CVA) Code(s): I69.398 - OTHER SEQUELAE OF CEREBRAL INFARCTION; R56.9 - UNSPECIFIED CONVULSIONS Status: Acute Comment: Increase Keppra 750mg IV q12h, consult Neurology service for evaluation (5) Encephalopathy Code(s): G93.40 - ENCEPHALOPATHY, UNSPECIFIED Status: Acute (6) Sinus tachycardia Code(s): R00.0 - TACHYCARDIA, UNSPECIFIED Status: Acute Comment: Etiology unclear, suspect neuro-mediated, increase Coreg 6.25mg BID, consider titrating Coreg after extubation (7) Metabolic acidosis Code(s): E87.2 - ACIDOSIS Status: Resolved (8) NSTEMI (non-ST elevated myocardial infarction) Code(s): I21.4 - NON-ST ELEVATION (NSTEMI) MYOCARDIAL INFARCTION Status: Acute Comment: conservative management per cardiology (9) Lactic acid acidosis Code(s): E87.2 - ACIDOSIS Status: Resolved (10) HTN (hypertension) Code(s): I10 - ESSENTIAL (PRIMARY) HYPERTENSION Status: Chronic (11) Uncontrolled hypertension Code(s): I10 - ESSENTIAL (PRIMARY) HYPERTENSION Status: Resolved (12) Acute hypoxemic respiratory failure Code(s): J96.01 - ACUTE RESPIRATORY FAILURE WITH HYPOXIA Status: Resolved Comment: Extubated successfully 06/23/17 (13) Dysphagia Code(s): R13.10 - DYSPHAGIA, UNSPECIFIED Status: Acute Qualifiers: Dysphagia type: oropharyngeal phase Qualified Code(s): R13.12 - Dysphagia, oropharyngeal phase Comment: continue tube feeds.tolerating so far. s/p PEG placement - Plan vásquez catheter, PT/OT, speech therapy, respiratory therapy, incentive spirometry , DVT proph w/heparin, DVT proph w/SCDs discussed with NS-cont heparin drip w caution w goal PTT 50-70. -: EVD in place,high risk of bleed.monitor CSF pressure -: cont heparin drip for DVT & PE. -: cont coreg for sinus tachycardia.cont hydralazine for BP.controlled better -: cont supportive care. TF per PEG.daily labs.ccu care * . Review of Systems - Review of Systems Other: unobtainable as pt does not speak,unresponsive to verbal stimulus - Medications/Allergies Allergies/Adverse Reactions: Allergies Allergy/AdvReac Type Severity Reaction Status Date / Time ibuprofen Allergy Verified 07/02/17 09:00 Medications: Current Medications Acetaminophen (Tylenol Elixir) 650 mg PER TUBE Q4H PRN PRN Reason: Fever Last Admin: 07/09/17 10:14 Dose: 650 mg Albuterol/Ipratropium (Duoneb) 3 ml NEB [id number] [facility] Last Admin: 07/15/17 13:05 Dose: 3 ml Carvedilol (Coreg) 6.25 mg PO BID-WM [facility] Last Admin: 07/15/17 08:26 Dose: 6.25 mg Cefazolin Sodium (Ancef) 2 gm SLOW IVP 1000,1800,2359 [facility] Last Admin: 07/15/17 11:40 Dose: 2 gm Mineral Oil/White Petrolatum 99 gm/ Cholestyramine Resin 4 gm 0 gm TOP BID [facility] Last Admin: 07/15/17 08:29 Dose: 1 top Mineral Oil/White Petrolatum 99 gm/ Cholestyramine Resin 4 gm 0 gm TOP PRN PRN PRN Reason: WOUND CARE Last Admin: 07/15/17 08:28 Dose: 1 top Diphenhydramine HCl (Benadryl) 50 mg IVP Q6H PRN PRN Reason: Itching Last Admin: 07/02/17 01:43 Dose: 50 mg Hydralazine HCl (Apresoline) 20 mg SLOW IVP Q4H PRN PRN Reason: Hypertension Last Admin: 06/26/17 13:37 Dose: 20 mg Hydralazine HCl (Apresoline) 50 mg PO TID [place] Last Admin: 07/15/17 14:14 Dose: 50 mg Heparin Sodium/Dextrose (Heparin 25,000 Units/D5w 500 Ml) 500 mls @ 0 mls/hr IVPB INF [place]; Per Protocol PRN Reason: Protocol Last Admin: 07/14/17 22:00 Dose: 500 mls Dextrose/Sodium Chloride (D5 1/2 Ns) 1,000 mls @ 0 mls/hr IV .Q0M [place] PRN Reason: KVO Last Admin: 07/11/17 21:53 Dose: 1,000 mls Levetiracetam 750 mg/ Sodium (Chloride) 107.5 mls @ 215 mls/hr IVPB BID [place] Last Admin: 07/15/17 08:26 Dose: 107.5 mls Sodium Chloride (Normal Saline 0.9%) 1,000 mls @ 100 mls/hr IV .Q10H [place] Last Admin: 07/15/17 13:23 Dose: 1,000 mls Fentanyl Citrate 2,000 mcg/ (Sodium Chloride) 100 mls @ 0 mls/hr IV INF [place]; Per Protocol PRN Reason: Protocol Stop: 08/11/17 15:40 Fentanyl Citrate (Fentanyl Bolus) 250 mls @ 0 mls/hr IVPB PRN PRN; As Directed PRN Reason: Breakthrough pain/agitation Stop: 08/11/17 15:40 Potassium Chloride 40 meq/ (Sodium Chloride) 270 mls @ 135 mls/hr IVPB ASDIR PRN PRN Reason: FOR SERUM K+ 2.5 - 3.5 Potassium Chloride 40 meq/ (Device) 100 mls @ 50 mls/hr IVPB ASDIR PRN PRN Reason: FOR SERUM K+ 2.5 - 3.5 Magnesium Sulfate 1 gm/ Sodium (Chloride) 102 mls @ 102 mls/hr IV PRN PRN PRN Reason: MAG LEVEL 1.4 - 2.0 Magnesium Sulfate 2 gm/ Device 100 mls @ 100 mls/hr IVPB ASDIR PRN PRN Reason: MAGNESIUM < 1.4 Potassium Phosphate 9 mmol/ (Sodium Chloride) 103 mls @ 25.75 mls/hr IVPB ASDIR PRN PRN Reason: Phosphate 1.0-1.8 Potassium Phosphate 12 mmol/ (Sodium Chloride) 254 mls @ 63.5 mls/hr IV ASDIR PRN PRN Reason: Serum phosphate 0.5-0.9 Potassium Phosphate 15 mmol/ (Sodium Chloride) 255 mls @ 63.75 mls/hr IV ASDIR PRN PRN Reason: Serum Phos < 0.5 Labetalol HCl (Normodyne) 10 mg SLOW IVP Q10MIN PRN PRN Reason: SBP > 140, HR > 70 Last Admin: 07/12/17 16:00 Dose: 2 ml Lorazepam (Ativan) 2 mg SLOW IVP Q1H PRN PRN Reason: Breakthrough agitation Stop: 08/11/17 15:40 Magnesium Oxide (Magnesium Oxide) 400 mg PO BIDPRN PRN PRN Reason: FOR SERUM MAG 1.4 - 2.0 Magnesium Oxide (Magnesium Oxide) 800 mg PO PRN PRN PRN Reason: FOR SERUM MAG < 1.4 Miscellaneous Medication (Ccu Electrolyte Replacement) 1 each FS ASDIR [facility] Miscellaneous Medication (Ventilator Sedation Protocol) 1 each FS ASDIR [facility] Miscellaneous Medication (Phos-Nak) 1 pkt PO TIDPRN PRN PRN Reason: FOR PHOS LEVEL 1.0 - 1.8 Miscellaneous Medication (Phos-Nak) 2 pkt PO TIDPRN PRN PRN Reason: FOR PHOS LEVEL 0.5 - 1.0 Morphine Sulfate (Morphine) 2 mg SLOW IVP Q1H PRN PRN Reason: breakthrough pain/agitation Stop: 08/11/17 15:40 Discontinue Previous Narcotic Pain Medications And Benzodiazepines 1 each FS .ONE [place] Stop: 08/11/17 15:40 Ccu Electrolyte (Replacement Protocol) 0 each FS PRN PRN PRN Reason: FOR ELECTROLYTE REPLACEMENT Pantoprazole Sodium (Protonix) 40 mg PER TUBE DAILY [facility] Last Admin: 07/15/17 08:26 Dose: 40 mg Potassium Chloride (K-Dur) 40 meq PO ASDIR PRN PRN Reason: FOR SERUM K+ 2.5 - 3.5 Potassium Chloride (Klor-Con) 40 meq PER TUBE ASDIR PRN PRN Reason: FOR SERUM K+ 2.5-3.5 Promethazine HCl (Phenergan) 25 mg IM Q4H PRN PRN Reason: Nausea/Vomiting Propofol (Diprivan) 1,000 mg IV INF PRN; Protocol PRN Reason: TO ACHIEVE GOAL RASS Stop: 08/11/17 15:40 Last Admin: 07/13/17 23:48 Dose: 1,000 mg Propofol (Diprivan Bolus) 20 mg IV Q5MIN PRN PRN Reason: BREAKTHROUGH AGITATION Stop: 08/11/17 15:40 Sodium Chloride (Flush - Normal Saline) 10 ml IVF Q12HR [place] Last Admin: 07/15/17 08:28 Dose: 10 ml Sodium Chloride (Flush - Normal Saline) 10 ml IVF PRN PRN PRN Reason: Saline Flush Last Admin: 06/28/17 08:49 Dose: 10 ml
--- NOTE | 2017-07-15 16:32 | PRG ---
DATE OF SERVICE: 07/15/2017 Mr. Hassan's PTT is a 39 this morning. We will work towards pushing this gently to the range of 50 -70 to treat his pulmonary embolism. He has a right frontal external ventricular drain in. His EVD is open at 10 cm of water and has putting out clear CSF with good waveform. When I dropped his EVD d own, this quite patent and I have released 15 mL. He remains alert and follows commands in the bilat eral upper extremities and right lower extremity. He is quite weak in the left lower extremity.
[2017-07-15] MEDS: Heparin 25,000 units/D5W 500 ML IVPB SCH (17:44)
[2017-07-16] MEDS: CEFAZOLIN/Water 2 GM/20 ML SYRINGE SLOW IVP SCH ×3 (01:58→17:03)
[2017-07-16 02:46] LABS: Anion Gap 7 mmol/L (10-20); BUN (Urea Nitrogen) 13 mg/dL (8.9-20.6); Calc. Creatinine Clearance 190 mL/min (70-130); Calcium 8.9 mg/dL (7.8-10.44); Carbon Dioxide 25 mmol/L (22-29); Chloride 109 mmol/L (98-107); Estimated GFR-MDRD Greater than 90; Glucose 119 mg/dL (70-105); Potassium 3.8 mmol/L (3.5-5.1); Sodium 137 mmol/L (136-145)
[2017-07-16] MEDS: Carvedilol 6.25 MG TAB PO SCH ×2 (07:52→17:03)
[2017-07-16] MEDS: hydrALAZINE 25 MG TAB PO SCH ×3 (08:01→21:18)
[2017-07-16] MEDS: Aquaphor 30 GM 99 GM, Cholestyramine/Aspartame 4 GM TOP SCH ×2 (08:01→21:20)
[2017-07-16] MEDS: Pantoprazole 40 MG GRANULES PACKET PER TUBE SCH (08:01)
--- NOTE | 2017-07-16 10:00 | PRG ---
DATE OF SERVICE: 07/16/2017 SUBJECTIVE: This morning, he is a little bit more awake and responsive. OBJECTIVE: VITAL SIGNS: Blood pressure is 124/80, temperature 98, pulse 100, respiration rate 18. NEUROLOGICAL : He is verbalizing. He wants a cigar. CHEST: Anterior rhonchi. CARDIAC: Normal S1, S2, no gallops. ABDOMEN: Soft. LABORATORY DATA: PTT 72. Electrolytes are normal. IMPRESSION: 1. Status post subarachnoid hemorrhage with a drain in place. 2. Respiratory failure. 3. Pulmonary embolism. PLAN: Continue IV heparin. Neb treatment, supportive care, nutrition, PT. We will follow.
[2017-07-16] MEDS: Sodium Chloride 0.9% 1,000 ML IV SCH ×3 (10:20→20:30)
--- NOTE | 2017-07-16 11:49 | PRG ---
DATE OF SERVICE: 07/16/2017 Mr. Hassan is more alert and interactive than any time that I have seen him. He actually speaks to me. He has worked with physical therapy. His EVD has put out approximately 10 mL hourly and his IC Ps have ranged from 2 to 18 mmHg. His EVD continues to remain functioning. Again, he has demonstrat ed excellent progress with CSF diversion.
--- NOTE | 2017-07-16 15:11 | PDOC.PN ---
- Subjective Encounter Start Date: 07/16/17 Encounter Start Time: 15:10 Subjective: opens eyes and seems more responsive today -: able to mumble his full name - Objective MAR Reviewed: Yes Vital Signs & Weight: Vital Signs (12 hours) Temp Pulse Pulse Resp BP BP Pulse Ox 07/16/17 14:35 100 07/16/17 13:07 100 18 99 07/16/17 13:00 98.2 F 07/16/17 08:45 103 H 145/101 H 07/16/17 08:01 124/80 07/16/17 08:00 98.9 F 105 H 16 97 07/16/17 07:52 124/80 07/16/17 06:56 99 07/16/17 06:54 109 H 20 98 Weight Admit Weight 234 lb 2.095 oz Weight 227 lb 4.745 oz Most Recent Monitor Data Heart Rate from ECG 107 NIBP 161/104 NIBP BP-Mean 127 Respiration from ECG 16 SpO2 98 I&O: 07/15/17 07/16/17 07/17/17 06:59 06:59 06:59 Intake Total 3859.3 4057 100 Output Total 2397 2278 1261 Balance 1462.3 1779 -1161 Result Diagrams: 07/14/17 19:15 07/16/17 02:05 Additional Labs: Microbiology 07/05/17 15:19 Stool C. difficile GDH Antigen & Toxins - Final 07/02/17 12:10 Lumbar Body Fluid Culture - Final 06/17/17 14:05 Sputum Respiratory Culture - Final Staphylococcus aureus Phys Exam - Physical Examination Constitutional: NAD follows simple commands but slowly.tracks w eyes HEENT: PERRLA, moist MMs, sclera anicteric, oral pharynx no lesions Neck: no JVD Respiratory: no wheezing, no rales, no rhonchi, clear to auscultation bilateral Cardiovascular: RRR, no significant murmur Gastrointestinal: soft, non-tender, no distention, positive bowel sounds Musculoskeletal: no edema, pulses present Left LE weakness and slurred speech Psychiatric: normal affect Dx/Plan (1) Pulmonary embolism Code(s): I26.99 - OTHER PULMONARY EMBOLISM WITHOUT ACUTE COR PULMONALE Status : Acute Qualifiers: Chronicity: acute Comment: multiple emboli noted on CTA, OAC when PEG site established (2) DVT, bilateral lower limbs Code(s): I82.403 - ACUTE EMBOLISM AND THOMBOS UNSP DEEP VEINS OF LOW EXTRM, BI Status: Acute Comment: Heparin gtt resumed, OAC when stabilizing and likely PEG route available (3) SAH (subarachnoid hemorrhage) Code(s): I60.9 - NONTRAUMATIC SUBARACHNOID HEMORRHAGE, UNSPECIFIED Status: Acute Comment: s/p EVD per NS.s/p coiling PCOM region aneurysm, s/p ventriculostomy with EVD (4) Seizure as late effect of cerebrovascular accident (CVA) Code(s): I69.398 - OTHER SEQUELAE OF CEREBRAL INFARCTION; R56.9 - UNSPECIFIED CONVULSIONS Status: Acute Comment: Increase Keppra 750mg IV q12h, consult Neurology service for evaluation (5) Encephalopathy Code(s): G93.40 - ENCEPHALOPATHY, UNSPECIFIED Status: Acute Comment: Improving.Due to ICH (6) Sinus tachycardia Code(s): R00.0 - TACHYCARDIA, UNSPECIFIED Status: Acute Comment: Etiology unclear, suspect neuro-mediated, increase Coreg 6.25mg BID, consider titrating Coreg after extubation (7) Metabolic acidosis Code(s): E87.2 - ACIDOSIS Status: Resolved (8) NSTEMI (non-ST elevated myocardial infarction) Code(s): I21.4 - NON-ST ELEVATION (NSTEMI) MYOCARDIAL INFARCTION Status: Acute Comment: conservative management per cardiology (9) Lactic acid acidosis Code(s): E87.2 - ACIDOSIS Status: Resolved (10) HTN (hypertension) Code(s): I10 - ESSENTIAL (PRIMARY) HYPERTENSION Status: Chronic (11) Uncontrolled hypertension Code(s): I10 - ESSENTIAL (PRIMARY) HYPERTENSION Status: Resolved (12) Acute hypoxemic respiratory failure Code(s): J96.01 - ACUTE RESPIRATORY FAILURE WITH HYPOXIA Status: Resolved Comment: Extubated successfully 06/23/17 (13) Dysphagia Code(s): R13.10 - DYSPHAGIA, UNSPECIFIED Status: Acute Qualifiers: Dysphagia type: oropharyngeal phase Qualified Code(s): R13.12 - Dysphagia, oropharyngeal phase Comment: continue tube feeds.tolerating so far. s/p PEG placement - Plan vásquez catheter, PT/OT, DVT proph w/SCDs cont supportive care. CCU lyte replacement. -: Heparin drip for PE/DVT.PTT range 50-70 -: monitoring IC pressure via EVD.NS following as well -: BP better controlled.cont hydralazine,coreg.monitor -: IV keppra for seizures d/t ICH. * .AM labs * * HD stable.will need placement in retirement * Review of Systems - Review of Systems Other: limited due to encephalopathy due to ICH - Medications/Allergies Allergies/Adverse Reactions: Allergies Allergy/AdvReac Type Severity Reaction Status Date / Time ibuprofen Allergy Verified 07/02/17 09:00 Medications: Current Medications Acetaminophen (Tylenol Elixir) 650 mg PER TUBE Q4H PRN PRN Reason: Fever Last Admin: 07/09/17 10:14 Dose: 650 mg Albuterol/Ipratropium (Duoneb) 3 ml NEB [id number] [place] Last Admin: 07/16/17 13:07 Dose: 3 ml Carvedilol (Coreg) 6.25 mg PO BID-[facility] Last Admin: 07/16/17 07:52 Dose: 6.25 mg Cefazolin Sodium (Ancef) 2 gm SLOW IVP 1000,1800,2359 [place] Last Admin: 07/16/17 10:28 Dose: 2 gm Mineral Oil/White Petrolatum 99 gm/ Cholestyramine Resin 4 gm 0 gm TOP BID [place] Last Admin: 07/16/17 08:01 Dose: 1 top Mineral Oil/White Petrolatum 99 gm/ Cholestyramine Resin 4 gm 0 gm TOP PRN PRN PRN Reason: WOUND CARE Last Admin: 07/15/17 08:28 Dose: 1 top Diphenhydramine HCl (Benadryl) 50 mg IVP Q6H PRN PRN Reason: Itching Last Admin: 07/02/17 01:43 Dose: 50 mg Hydralazine HCl (Apresoline) 20 mg SLOW IVP Q4H PRN PRN Reason: Hypertension Last Admin: 06/26/17 13:37 Dose: 20 mg Hydralazine HCl (Apresoline) 50 mg PO TID [place] Last Admin: 07/16/17 14:35 Dose: 50 mg Heparin Sodium/Dextrose (Heparin 25,000 Units/D5w 500 Ml) 500 mls @ 0 mls/hr IVPB INF [place]; Per Protocol PRN Reason: Protocol Last Admin: 07/15/17 17:44 Dose: 500 mls Dextrose/Sodium Chloride (D5 1/2 Ns) 1,000 mls @ 0 mls/hr IV .Q0M [place] PRN Reason: KVO Last Admin: 07/11/17 21:53 Dose: 1,000 mls Levetiracetam 750 mg/ Sodium (Chloride) 107.5 mls @ 215 mls/hr IVPB BID [place] Last Admin: 07/16/17 08:01 Dose: 107.5 mls Sodium Chloride (Normal Saline 0.9%) 1,000 mls @ 100 mls/hr IV .Q10H [place] Last Admin: 07/16/17 10:20 Dose: 1,000 mls Fentanyl Citrate 2,000 mcg/ (Sodium Chloride) 100 mls @ 0 mls/hr IV INF [place]; Per Protocol PRN Reason: Protocol Stop: 08/11/17 15:40 Fentanyl Citrate (Fentanyl Bolus) 250 mls @ 0 mls/hr IVPB PRN PRN; As Directed PRN Reason: Breakthrough pain/agitation Stop: 08/11/17 15:40 Potassium Chloride 40 meq/ (Sodium Chloride) 270 mls @ 135 mls/hr IVPB ASDIR PRN PRN Reason: FOR SERUM K+ 2.5 - 3.5 Potassium Chloride 40 meq/ (Device) 100 mls @ 50 mls/hr IVPB ASD[facility] PRN PRN Reason: FOR SERUM K+ 2.5 - 3.5 Magnesium Sulfate 1 gm/ Sodium (Chloride) 102 mls @ 102 mls/hr IV PRN PRN PRN Reason: MAG LEVEL 1.4 - 2.0 Magnesium Sulfate 2 gm/ Device 100 mls @ 100 mls/hr IVPB ASDIR PRN PRN Reason: MAGNESIUM < 1.4 Potassium Phosphate 9 mmol/ (Sodium Chloride) 103 mls @ 25.75 mls/hr IVPB ASDIR PRN PRN Reason: Phosphate 1.0-1.8 Potassium Phosphate 12 mmol/ (Sodium Chloride) 254 mls @ 63.5 mls/hr IV ASDIR PRN PRN Reason: Serum phosphate 0.5-0.9 Potassium Phosphate 15 mmol/ (Sodium Chloride) 255 mls @ 63.75 mls/hr IV ASDIR PRN PRN Reason: Serum Phos < 0.5 Labetalol HCl (Normodyne) 10 mg SLOW IVP Q10MIN PRN PRN Reason: SBP > 140, HR > 70 Last Admin: 07/12/17 16:00 Dose: 2 ml Lorazepam (Ativan) 2 mg SLOW IVP Q1H PRN PRN Reason: Breakthrough agitation Stop: 08/11/17 15:40 Magnesium Oxide (Magnesium Oxide) 400 mg PO BIDPRN PRN PRN Reason: FOR SERUM MAG 1.4 - 2.0 Magnesium Oxide (Magnesium Oxide) 800 mg PO PRN PRN PRN Reason: FOR SERUM MAG < 1.4 Miscellaneous Medication (Ccu Electrolyte Replacement) 1 each FS ASDIR [place] Miscellaneous Medication (Ventilator Sedation Protocol) 1 each FS [facility] Miscellaneous Medication (Phos-Nak) 1 pkt PO TIDPRN PRN PRN Reason: FOR PHOS LEVEL 1.0 - 1.8 Miscellaneous Medication (Phos-Nak) 2 pkt PO TIDPRN PRN PRN Reason: FOR PHOS LEVEL 0.5 - 1.0 Morphine Sulfate (Morphine) 2 mg SLOW IVP Q1H PRN PRN Reason: breakthrough pain/agitation Stop: 08/11/17 15:40 Discontinue Previous Narcotic Pain Medications And Benzodiazepines 1 each FS .ONE [place] Stop: 08/11/17 15:40 Ccu Electrolyte (Replacement Protocol) 0 each FS PRN PRN PRN Reason: FOR ELECTROLYTE REPLACEMENT Pantoprazole Sodium (Protonix) 40 mg PER TUBE DAILY [facility] Last Admin: 07/16/17 08:01 Dose: 40 mg Potassium Chloride (K-Dur) 40 meq PO ASDIR PRN PRN Reason: FOR SERUM K+ 2.5 - 3.5 Potassium Chloride (Klor-Con) 40 meq PER TUBE ASDIR PRN PRN Reason: FOR SERUM K+ 2.5-3.5 Promethazine HCl (Phenergan) 25 mg IM Q4H PRN PRN Reason: Nausea/Vomiting Propofol (Diprivan) 1,000 mg IV INF PRN; Protocol PRN Reason: TO ACHIEVE GOAL RASS Stop: 08/11/17 15:40 Last Admin: 07/13/17 23:48 Dose: 1,000 mg Propofol (Diprivan Bolus) 20 mg IV Q5MIN PRN PRN Reason: BREAKTHROUGH AGITATION Stop: 08/11/17 15:40 Sodium Chloride (Flush - Normal Saline) 10 ml IVF Q12HR [facility] Last Admin: 07/16/17 08:03 Dose: 10 ml Sodium Chloride (Flush - Normal Saline) 10 ml IVF PRN PRN PRN Reason: Saline Flush Last Admin: 06/28/17 08:49 Dose: 10 ml
[2017-07-16 18:18] LABS: Hemoglobin 9.2 g/dL (14.0-18.0); Platelet Count 317 thou/uL (130-400)
[2017-07-17] MEDS: CEFAZOLIN/Water 2 GM/20 ML SYRINGE SLOW IVP SCH ×3 (01:22→18:42)
[2017-07-17] MEDS: Heparin 25,000 units/D5W 500 ML IVPB SCH (04:45)
[2017-07-17] MEDS: Sodium Chloride 0.9% 1,000 ML IV SCH ×2 (04:45→16:07)
[2017-07-17 06:14] LABS: Anion Gap 10 mmol/L (10-20); BUN (Urea Nitrogen) 12 mg/dL (8.9-20.6); Calc. Creatinine Clearance 206 mL/min (70-130); Calcium 9.1 mg/dL (7.8-10.44); Carbon Dioxide 25 mmol/L (22-29); Chloride 108 mmol/L (98-107); Estimated GFR-MDRD Greater than 90; Glucose 130 mg/dL (70-105); Potassium 3.9 mmol/L (3.5-5.1); Sodium 139 mmol/L (136-145)
[2017-07-17] MEDS: Carvedilol 6.25 MG TAB PO SCH ×2 (07:17→17:31)
[2017-07-17] MEDS: hydrALAZINE 25 MG TAB PO SCH ×3 (08:03→22:22)
[2017-07-17] MEDS: Pantoprazole 40 MG GRANULES PACKET PER TUBE SCH (08:04)
--- NOTE | 2017-07-17 08:34 | PRG ---
DATE OF SERVICE: 07/17/2017 He is awake. He is verbalizing some to the nurse, although I could get him to say much to me. PHYSICAL EXAMINATION: VITAL SIGNS: His temperature is 99.5, pulse 116, blood pressure 126/83. 24 hour intake 4040, output 2922. HEENT: Unremarkable. He has a shunt in his brain, external shunt. Oropharynx clear. NECK: No JVD. LUNGS: Clear. CARDIAC: S1 and S2 regular. ABDOMEN: Soft. EXTREMITIES: No edema. LABORATORY DATA: Sodium 139, potassium 3.9, chloride 108, CO2 25, BUN 12, creatinine 0.6, glucose 13 0 and his PTT is 49.8. ASSESSMENT: 1. Status post multiple episodes of acute respiratory failure related to subarachnoid hemorrhage. 2. Deep venous thrombosis/pulmonary embolus. 3. Recurrent episodes of altered mental status due to increased intracranial pressure. 4. Seizures. 5. Malignant hypertension. PLAN: 1. Continue heparin drip. 2. Plan on the shunt being internalized this week. 3. Discontinue sedation protocol. 4. Continue enteral tube feeds.
[2017-07-17] MEDS: Aquaphor 30 GM 99 GM, Cholestyramine/Aspartame 4 GM TOP SCH ×2 (08:35→22:22)
--- NOTE | 2017-07-17 13:55 | EEG ---
Referring Physician: Brennan METZGER EEG # [id number] TEST TYPE: ROUTINE PORTABLE INPATIENT REPORT: AN EEG USING THE INTERNATIONAL TEN-TWENTY SYSTEM OF ELECTRODE PLACEMENT WAS PERFORMED. The best waking background is an 8 hertz occipitally dominant alpha frequency. This is poorly maintained and there is predominately theta frequency seen over both hemispheres. No sleep patterns were seen. No epileptiform features were present. Photic stimulation was unremarkable. IMPRESSION: THIS IS A MILDLY ABNORMAL EEG FOR THE FINDINGS OF SOME MILD DIFFUSE SLOWING WITHOUT EPILEPTIFORM FEATURES. Upholstery Estimator: DAMEON Hyperbaric Nurse: EEG.SALOMÓN GREEN
--- NOTE | 2017-07-17 14:16 | PDOC.PN ---
- Subjective Encounter Start Date: 07/17/17 Encounter Start Time: 14:15 Subjective: reported in full sentence'my leg hurts here'pointing to R thigh -: no overnight event per nursing - Objective MAR Reviewed: Yes Vital Signs & Weight: Vital Signs (12 hours) Temp Pulse Pulse Pulse Resp BP BP 07/17/17 13:21 101 H 17 07/17/17 11:02 105 H 101 H 135/93 H 07/17/17 08:03 132/86 07/17/17 08:00 99.5 F 105 H 20 07/17/17 07:17 132/86 07/17/17 07:16 112 H 20 07/17/17 07:00 99.5 F BP Pulse Ox Pulse Ox Pulse Ox 07/17/17 13:21 100 07/17/17 11:02 134/93 H 100 100 07/17/17 08:03 07/17/17 08:00 100 07/17/17 07:17 07/17/17 07:16 100 07/17/17 07:00 Weight Admit Weight 234 lb 2.095 oz Weight 228 lb 14.4 oz Most Recent Monitor Data Heart Rate from ECG 105 NIBP 154/98 NIBP BP-Mean 126 Respiration from ECG 18 SpO2 100 I&O: 07/16/17 07/17/17 07/18/17 06:59 06:59 06:59 Intake Total 4057 4040.5 Output Total 2278 2922 768 Balance 1779 1118.5 -768 Result Diagrams: 07/16/17 18:10 07/17/17 05:21 Additional Labs: labs reviewed. Microbiology 07/05/17 15:19 Stool C. difficile GDH Antigen & Toxins - Final 07/02/17 12:10 Lumbar Body Fluid Culture - Final 06/17/17 14:05 Sputum Respiratory Culture - Final Staphylococcus aureus Phys Exam - Physical Examination Constitutional: NAD opens eyes and interacts better today.talked w/o dysarthria HEENT: PERRLA, moist MMs, sclera anicteric, oral pharynx no lesions EVD Left cranium Neck: no nodes, no JVD, supple, full ROM Respiratory: no wheezing, no rales, no rhonchi, clear to auscultation bilateral Cardiovascular: RRR, no significant murmur, no rub Gastrointestinal: soft, non-tender, no distention, positive bowel sounds Musculoskeletal: pulses present, edema present (mild in hands) left leg weakness persists.moving left arm against gravity Psychiatric: normal affect Deviation from normal: orineted to self Dx/Plan (1) Pulmonary embolism Code(s): I26.99 - OTHER PULMONARY EMBOLISM WITHOUT ACUTE COR PULMONALE Status : Acute Qualifiers: Chronicity: acute Comment: multiple emboli noted on CTA, OAC when PEG site established cont heparin drip for now (2) DVT, bilateral lower limbs Code(s): I82.403 - ACUTE EMBOLISM AND THOMBOS UNSP DEEP VEINS OF LOW EXTRM, BI Status: Acute Comment: Heparin gtt resumed, OAC when stabilizing and likely PEG route available (3) SAH (subarachnoid hemorrhage) Code(s): I60.9 - NONTRAUMATIC SUBARACHNOID HEMORRHAGE, UNSPECIFIED Status: Acute Comment: s/p EVD per NS.s/p coiling PCOM region aneurysm, s/p ventriculostomy with EVD 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 for SOLUTION MANAGER shunt later 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 week (4) Seizure as late effect of cerebrovascular accident (CVA) Code(s): I69.398 - OTHER SEQUELAE OF CEREBRAL INFARCTION; R56.9 - UNSPECIFIED CONVULSIONS Status: Acute Comment: Increase Keppra 750mg IV q12h, consult Neurology service for evaluation (5) Encephalopathy Code(s): G93.40 - ENCEPHALOPATHY, UNSPECIFIED Status: Acute Comment: Improving.Due to ICH (6) Sinus tachycardia Code(s): R00.0 - TACHYCARDIA, UNSPECIFIED Status: Acute Comment: Etiology unclear, suspect neuro-mediated, increase Coreg 6.25mg BID, consider titrating Coreg after extubation (7) Metabolic acidosis Code(s): E87.2 - ACIDOSIS Status: Resolved (8) NSTEMI (non-ST elevated myocardial infarction) Code(s): I21.4 - NON-ST ELEVATION (NSTEMI) MYOCARDIAL INFARCTION Status: Acute Comment: conservative management per cardiology (9) Lactic acid acidosis Code(s): E87.2 - ACIDOSIS Status: Resolved (10) HTN (hypertension) Code(s): I10 - ESSENTIAL (PRIMARY) HYPERTENSION Status: Chronic (11) Uncontrolled hypertension Code(s): I10 - ESSENTIAL (PRIMARY) HYPERTENSION Status: Resolved (12) Acute hypoxemic respiratory failure Code(s): J96.01 - ACUTE RESPIRATORY FAILURE WITH HYPOXIA Status: Resolved Comment: Extubated successfully 06/23/17 (13) Dysphagia Code(s): R13.10 - DYSPHAGIA, UNSPECIFIED Status: Acute Qualifiers: Dysphagia type: oropharyngeal phase Qualified Code(s): R13.12 - Dysphagia, oropharyngeal phase Comment: continue tube feeds.tolerating so far. s/p PEG placement - Plan vásquez catheter, continue antibiotics, PT/OT, respiratory therapy, incentive spirometry, DVT proph w/SCDs hemodynamically stable.BP controlled .CCu monitoring -: cornelius will get SOLUTION MANAGER shunt for reducing cerebral pressure ,later this week.NS -: cont meds as below-seizure prophylaxis,empiric ABX -: heparin drip .monitor ptt closely as high risk of bleed. -: am labs * . Review of Systems - Review of Systems Other: difficult to obtain due to encephalopathy from Stroke - Medications/Allergies Allergies/Adverse Reactions: Allergies Allergy/AdvReac Type Severity Reaction Status Date / Time ibuprofen Allergy Verified 07/02/17 09:00 Medications: Current Medications Acetaminophen (Tylenol Elixir) 650 mg PER TUBE Q4H PRN PRN Reason: Fever Last Admin: 07/09/17 10:14 Dose: 650 mg Albuterol/Ipratropium (Duoneb) 3 ml NEB [id number] [facility] Last Admin: 07/17/17 13:21 Dose: 3 ml Carvedilol (Coreg) 6.25 mg PO BID-WM [facility] Last Admin: 07/17/17 07:17 Dose: 6.25 mg Cefazolin Sodium (Ancef) 2 gm SLOW IVP 1000,1800,2359 [facility] Last Admin: 07/17/17 09:14 Dose: 2 gm Mineral Oil/White Petrolatum 99 gm/ Cholestyramine Resin 4 gm 0 gm TOP BID [facility] Last Admin: 07/17/17 08:35 Dose: 1 top Mineral Oil/White Petrolatum 99 gm/ Cholestyramine Resin 4 gm 0 gm TOP PRN PRN PRN Reason: WOUND CARE Last Admin: 07/15/17 08:28 Dose: 1 top Diphenhydramine HCl (Benadryl) 50 mg IVP Q6H PRN PRN Reason: Itching Last Admin: 07/02/17 01:43 Dose: 50 mg Hydralazine HCl (Apresoline) 20 mg SLOW IVP Q4H PRN PRN Reason: Hypertension Last Admin: 06/26/17 13:37 Dose: 20 mg Hydralazine HCl (Apresoline) 50 mg PO TID [place] Last Admin: 07/17/17 08:03 Dose: 50 mg Heparin Sodium/Dextrose (Heparin 25,000 Units/D5w 500 Ml) 500 mls @ 0 mls/hr IVPB INF [place]; Per Protocol PRN Reason: Protocol Last Admin: 07/17/17 04:45 Dose: 500 mls Dextrose/Sodium Chloride (D5 1/2 Ns) 1,000 mls @ 0 mls/hr IV .Q0M [place] PRN Reason: KVO Last Admin: 07/11/17 21:53 Dose: 1,000 mls Levetiracetam 750 mg/ Sodium (Chloride) 107.5 mls @ 215 mls/hr IVPB BID [place] Last Admin: 07/17/17 08:32 Dose: 107.5 mls Sodium Chloride (Normal Saline 0.9%) 1,000 mls @ 100 mls/hr IV .Q10H [place] Last Admin: 07/17/17 04:45 Dose: 1,000 mls Potassium Chloride 40 meq/ (Sodium Chloride) 270 mls @ 135 mls/hr IVPB [facility]IR PRN PRN Reason: FOR SERUM K+ 2.5 - 3.5 Potassium Chloride 40 meq/ (Device) 100 mls @ 50 mls/hr IVPB ASDIR PRN PRN Reason: FOR SERUM K+ 2.5 - 3.5 Magnesium Sulfate 1 gm/ Sodium (Chloride) 102 mls @ 102 mls/hr IV PRN PRN PRN Reason: MAG LEVEL 1.4 - 2.0 Magnesium Sulfate 2 gm/ Device 100 mls @ 100 mls/hr IVPB ASDIR PRN PRN Reason: MAGNESIUM < 1.4 Potassium Phosphate 9 mmol/ (Sodium Chloride) 103 mls @ 25.75 mls/hr IVPB ASDIR PRN PRN Reason: Phosphate 1.0-1.8 Potassium Phosphate 12 mmol/ (Sodium Chloride) 254 mls @ 63.5 mls/hr IV ASDIR PRN PRN Reason: Serum phosphate 0.5-0.9 Potassium Phosphate 15 mmol/ (Sodium Chloride) 255 mls @ 63.75 mls/hr IV [facility]IR PRN PRN Reason: Serum Phos < 0.5 Labetalol HCl (Normodyne) 10 mg SLOW IVP Q10MIN PRN PRN Reason: SBP > 140, HR > 70 Last Admin: 07/12/17 16:00 Dose: 2 ml Magnesium Oxide (Magnesium Oxide) 400 mg PO BIDPRN PRN PRN Reason: FOR SERUM MAG 1.4 - 2.0 Magnesium Oxide (Magnesium Oxide) 800 mg PO PRN PRN PRN Reason: FOR SERUM MAG < 1.4 Miscellaneous Medication (Ccu Electrolyte Replacement) 1 each FS ASDIR [place] Miscellaneous Medication (Phos-Nak) 1 pkt PO TIDPRN PRN PRN Reason: FOR PHOS LEVEL 1.0 - 1.8 Miscellaneous Medication (Phos-Nak) 2 pkt PO TIDPRN PRN PRN Reason: FOR PHOS LEVEL 0.5 - 1.0 Morphine Sulfate (Morphine) 2 mg SLOW IVP Q1H PRN PRN Reason: breakthrough pain/agitation Stop: 08/11/17 15:40 Discontinue Previous Narcotic Pain Medications And Benzodiazepines 1 each FS .ONE [facility] Stop: 08/11/17 15:40 Ccu Electrolyte (Replacement Protocol) 0 each FS PRN PRN PRN Reason: FOR ELECTROLYTE REPLACEMENT Pantoprazole Sodium (Protonix) 40 mg PER TUBE DAILY [facility] Last Admin: 07/17/17 08:04 Dose: 40 mg Potassium Chloride (K-Dur) 40 meq PO ASDIR PRN PRN Reason: FOR SERUM K+ 2.5 - 3.5 Potassium Chloride (Klor-Con) 40 meq PER TUBE ASDIR PRN PRN Reason: FOR SERUM K+ 2.5-3.5 Promethazine HCl (Phenergan) 25 mg IM Q4H PRN PRN Reason: Nausea/Vomiting Sodium Chloride (Flush - Normal Saline) 10 ml IVF Q12HR [place] Last Admin: 07/17/17 08:34 Dose: 10 ml Sodium Chloride (Flush - Normal Saline) 10 ml IVF PRN PRN PRN Reason: Saline Flush Last Admin: 06/28/17 08:49 Dose: 10 ml
[2017-07-17 14:20] LABS: INR-International Normal Ratio 1.2; Prothrombin Time 15.5 SEC (12.0-14.7)
[2017-07-17 14:21] LABS: PTT 69.7 SEC (22.9-36.1)
[2017-07-17] MEDS: Labetalol HCl 100 MG/20 ML VIAL SLOW IVP PRN (23:40)
[2017-07-18] MEDS: CEFAZOLIN/Water 2 GM/20 ML SYRINGE SLOW IVP SCH ×4 (00:02→23:37)
[2017-07-18] MEDS: Sodium Chloride 0.9% 1,000 ML IV SCH ×3 (04:45→21:45)
[2017-07-18] MEDS: Heparin 25,000 units/D5W 500 ML IVPB SCH (06:28)
[2017-07-18 06:52] LABS: Anion Gap 8 mmol/L (10-20); BUN (Urea Nitrogen) 11 mg/dL (8.9-20.6); Calc. Creatinine Clearance 200 mL/min (70-130); Calcium 9.2 mg/dL (7.8-10.44); Carbon Dioxide 29 mmol/L (22-29); Chloride 107 mmol/L (98-107); Estimated GFR-MDRD Greater than 90; Glucose 110 mg/dL (70-105); Potassium 3.6 mmol/L (3.5-5.1); Sodium 140 mmol/L (136-145)
[2017-07-18] MEDS: hydrALAZINE 25 MG TAB PO SCH ×3 (08:24→20:46)
[2017-07-18] MEDS: Pantoprazole 40 MG GRANULES PACKET PER TUBE SCH (08:24)
[2017-07-18] MEDS: Carvedilol 6.25 MG TAB PO SCH ×2 (08:24→17:19)
[2017-07-18] MEDS: Aquaphor 30 GM 99 GM, Cholestyramine/Aspartame 4 GM TOP SCH ×2 (08:25→20:47)
--- NOTE | 2017-07-18 10:04 | PRG ---
DATE OF SERVICE: 07/18/2017 SUBJECTIVE: Mr. Hassan is doing well. He is actually starting to verbalize some. OBJECTIVE: VITAL SIGNS: Temperature is 98.7, pulse 112, blood pressure 134/95, 24-hour intake 4487 in, output 2 715. HEENT: Unremarkable except for the drain in place. NECK: No JVD. CHEST: Clear without wheezing. CARDIAC: S1 and S2 regular. ABDOMEN: Soft. EXTREMITIES: No edema except in the left leg. LABORATORY DATA: PTT is 53.7. Sodium 140, potassium 3.6, chloride 107, CO2 29, BUN 11, creatinine 0 .6, glucose 110. ASSESSMENT: 1. Deep venous thrombosis/pulmonary embolus. 2. Subarachnoid hemorrhage. 3. Status post multiple episodes of respiratory failure. 4. 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 PLAN: I would hold heparin a few hours before the procedure, but not all day today. Continue otherw ise supportive care.
--- NOTE | 2017-07-18 14:42 | PDOC.PN ---
- Subjective Encounter Start Date: 07/18/17 Encounter Start Time: 14:40 Subjective: able to talk better now.able to tell where he is -: no new events.discussed with nursing - Objective MAR Reviewed: Yes Vital Signs & Weight: Vital Signs (12 hours) Temp Pulse Pulse Pulse Resp BP BP 07/18/17 14:17 101 H 148/99 H 07/18/17 13:51 109 H 16 07/18/17 13:30 109 H 110 H 146/97 H 07/18/17 12:00 98.4 F 07/18/17 08:24 108 H 148/101 H 07/18/17 08:19 108 H 16 07/18/17 08:00 98.9 F 108 H 19 07/18/17 07:00 98.9 F 07/18/17 04:00 98.7 F BP Pulse Ox Pulse Ox Pulse Ox 07/18/17 14:17 07/18/17 13:51 100 07/18/17 13:30 134/92 H 100 100 07/18/17 12:00 07/18/17 08:24 07/18/17 08:19 100 07/18/17 08:00 99 07/18/17 07:00 07/18/17 04:00 Weight Admit Weight 231 lb 0.711 oz Weight 231 lb 0.711 oz Most Recent Monitor Data Heart Rate from ECG 106 NIBP 148/99 NIBP BP-Mean 114 Respiration from ECG 14 SpO2 100 I&O: 07/17/17 07/18/17 07/19/17 06:59 06:59 06:59 Intake Total 4040.5 4487 60 Output Total 2922 2715 1208 Balance 1118.5 1772 -1148 Result Diagrams: 07/16/17 18:10 07/18/17 06:18 Additional Labs: labs reviewed. Phys Exam - Physical Examination Constitutional: NAD HEENT: PERRLA, moist MMs, sclera anicteric, oral pharynx no lesions Neck: no nodes, no JVD, supple, full ROM Respiratory: no wheezing, no rales, no rhonchi, clear to auscultation bilateral Cardiovascular: RRR, no significant murmur, no rub Gastrointestinal: soft, non-tender, no distention, positive bowel sounds Musculoskeletal: no edema, pulses present Neurological: non-focal, normal sensation left leg weakness persists Psychiatric: normal affect, A&O x 3 slow to respond. Skin: no rash Dx/Plan (1) Pulmonary embolism Code(s): I26.99 - OTHER PULMONARY EMBOLISM WITHOUT ACUTE COR PULMONALE Status : Acute Qualifiers: Chronicity: acute Comment: multiple emboli noted on CTA, OAC when PEG site established cont heparin drip for now (2) DVT, bilateral lower limbs Code(s): I82.403 - ACUTE EMBOLISM AND THOMBOS UNSP DEEP VEINS OF LOW EXTRM, BI Status: Acute Comment: Heparin gtt resumed, OAC when stabilizing and likely PEG route available (3) SAH (subarachnoid hemorrhage) Code(s): I60.9 - NONTRAUMATIC SUBARACHNOID HEMORRHAGE, UNSPECIFIED Status: Acute Comment: s/p EVD per NS.s/p coiling PCOM region aneurysm, s/p ventriculostomy with EVD Plans for CODIFIER shunt later this week (4) Seizure as late effect of cerebrovascular accident (CVA) Code(s): I69.398 - OTHER SEQUELAE OF CEREBRAL INFARCTION; R56.9 - UNSPECIFIED CONVULSIONS Status: Acute Comment: Increase Keppra 750mg IV q12h, consult Neurology service for evaluation (5) Encephalopathy Code(s): G93.40 - ENCEPHALOPATHY, UNSPECIFIED Status: Acute Comment: Improving.Due to ICH (6) Sinus tachycardia Code(s): R00.0 - TACHYCARDIA, UNSPECIFIED Status: Acute Comment: Etiology unclear, suspect neuro-mediated, increase Coreg 6.25mg BID, consider titrating Coreg after extubation (7) Metabolic acidosis Code(s): E87.2 - ACIDOSIS Status: Resolved (8) NSTEMI (non-ST elevated myocardial infarction) Code(s): I21.4 - NON-ST ELEVATION (NSTEMI) MYOCARDIAL INFARCTION Status: Acute Comment: conservative management per cardiology (9) Lactic acid acidosis Code(s): E87.2 - ACIDOSIS Status: Resolved (10) HTN (hypertension) Code(s): I10 - ESSENTIAL (PRIMARY) HYPERTENSION Status: Chronic (11) Uncontrolled hypertension Code(s): I10 - ESSENTIAL (PRIMARY) HYPERTENSION Status: Resolved (12) Acute hypoxemic respiratory failure Code(s): J96.01 - ACUTE RESPIRATORY FAILURE WITH HYPOXIA Status: Resolved Comment: Extubated successfully 06/23/17 (13) Dysphagia Code(s): R13.10 - DYSPHAGIA, UNSPECIFIED Status: Acute Qualifiers: Dysphagia type: oropharyngeal phase Qualified Code(s): R13.12 - Dysphagia, oropharyngeal phase Comment: continue tube feeds.tolerating so far. s/p PEG placement - Plan vásquez catheter, continue antibiotics, PT/OT, respiratory therapy, incentive spirometry, DVT proph w/heparin, DVT proph w/SCDs CODIFIER shunt tomorrow.discussed w NS.will not hold heparin till midnight -: AM PT/PTT prior to surgery -: cont supportive care. -: BP controlled on current regimen -: am labs * . Review of Systems - Review of Systems Other: difficult ro obtain as he falls back asleep easily - Medications/Allergies Allergies/Adverse Reactions: Allergies Allergy/AdvReac Type Severity Reaction Status Date / Time ibuprofen Allergy Verified 07/02/17 09:00 Medications: Current Medications Acetaminophen (Tylenol Elixir) 650 mg PER TUBE Q4H PRN PRN Reason: Fever Last Admin: 07/09/17 10:14 Dose: 650 mg Albuterol/Ipratropium (Duoneb) 3 ml NEB [id number] [facility] Last Admin: 07/18/17 13:51 Dose: 3 ml Carvedilol (Coreg) 6.25 mg PO BID-WM [facility] Last Admin: 07/18/17 08:24 Dose: 6.25 mg Cefazolin Sodium (Ancef) 2 gm SLOW IVP 1000,1800,2359 [facility] Last Admin: 07/18/17 09:53 Dose: 2 gm Mineral Oil/White Petrolatum 99 gm/ Cholestyramine Resin 4 gm 0 gm TOP BID [facility] Last Admin: 07/18/17 08:25 Dose: 1 top Mineral Oil/White Petrolatum 99 gm/ Cholestyramine Resin 4 gm 0 gm TOP PRN PRN PRN Reason: WOUND CARE Last Admin: 07/15/17 08:28 Dose: 1 top Diphenhydramine HCl (Benadryl) 50 mg IVP Q6H PRN PRN Reason: Itching Last Admin: 07/02/17 01:43 Dose: 50 mg Hydralazine HCl (Apresoline) 20 mg SLOW IVP Q4H PRN PRN Reason: Hypertension Last Admin: 06/26/17 13:37 Dose: 20 mg Hydralazine HCl (Apresoline) 50 mg PO TID [facility] Last Admin: 07/18/17 14:17 Dose: 50 mg Heparin Sodium/Dextrose (Heparin 25,000 Units/D5w 500 Ml) 500 mls @ 0 mls/hr IVPB INF [place]; Per Protocol PRN Reason: Protocol Last Admin: 07/18/17 06:28 Dose: 500 mls Dextrose/Sodium Chloride (D5 1/2 Ns) 1,000 mls @ 0 mls/hr IV .Q0M [place] PRN Reason: KVO Last Admin: 07/11/17 21:53 Dose: 1,000 mls Levetiracetam 750 mg/ Sodium (Chloride) 107.5 mls @ 215 mls/hr IVPB BID [facility] Last Admin: 07/18/17 08:25 Dose: 107.5 mls Sodium Chloride (Normal Saline 0.9%) 1,000 mls @ 100 mls/hr IV .Q10H [facility] Last Admin: 07/18/17 11:33 Dose: 1,000 mls Potassium Chloride 40 meq/ (Sodium Chloride) 270 mls @ 135 mls/hr IVPB ASDIR PRN PRN Reason: FOR SERUM K+ 2.5 - 3.5 Potassium Chloride 40 meq/ (Device) 100 mls @ 50 mls/hr IVPB ASDIR PRN PRN Reason: FOR SERUM K+ 2.5 - 3.5 Magnesium Sulfate 1 gm/ Sodium (Chloride) 102 mls @ 102 mls/hr IV PRN PRN PRN Reason: MAG LEVEL 1.4 - 2.0 Magnesium Sulfate 2 gm/ Device 100 mls @ 100 mls/hr IVPB ASDIR PRN PRN Reason: MAGNESIUM < 1.4 Potassium Phosphate 9 mmol/ (Sodium Chloride) 103 mls @ 25.75 mls/hr IVPB ASDIR PRN PRN Reason: Phosphate 1.0-1.8 Potassium Phosphate 12 mmol/ (Sodium Chloride) 254 mls @ 63.5 mls/hr IV ASDIR PRN PRN Reason: Serum phosphate 0.5-0.9 Potassium Phosphate 15 mmol/ (Sodium Chloride) 255 mls @ 63.75 mls/hr IV ASDIR PRN PRN Reason: Serum Phos < 0.5 Labetalol HCl (Normodyne) 10 mg SLOW IVP Q10MIN PRN PRN Reason: SBP > 140, HR > 70 Last Admin: 07/17/17 23:40 Dose: 10 mg Lactulose (Lactulose) 30 gm PER TUBE TID [facility] Last Admin: 07/18/17 14:17 Dose: 30 gm Magnesium Oxide (Magnesium Oxide) 400 mg PO BIDPRN PRN PRN Reason: FOR SERUM MAG 1.4 - 2.0 Magnesium Oxide (Magnesium Oxide) 800 mg PO PRN PRN PRN Reason: FOR SERUM MAG < 1.4 Miscellaneous Medication (Ccu Electrolyte Replacement) 1 each FS ASDIR [place] Miscellaneous Medication (Phos-Nak) 1 pkt PO TIDPRN PRN PRN Reason: FOR PHOS LEVEL 1.0 - 1.8 Miscellaneous Medication (Phos-Nak) 2 pkt PO TIDPRN PRN PRN Reason: FOR PHOS LEVEL 0.5 - 1.0 Morphine Sulfate (Morphine) 2 mg SLOW IVP Q1H PRN PRN Reason: breakthrough pain/agitation Stop: 08/11/17 15:40 Discontinue Previous Narcotic Pain Medications And Benzodiazepines 1 each FS .ONE [facility] Stop: 08/11/17 15:40 Ccu Electrolyte (Replacement Protocol) 0 each FS PRN PRN PRN Reason: FOR ELECTROLYTE REPLACEMENT Pantoprazole Sodium (Protonix) 40 mg PER TUBE DAILY [facility] Last Admin: 07/18/17 08:24 Dose: 40 mg Potassium Chloride (K-Dur) 40 meq PO ASDIR PRN PRN Reason: FOR SERUM K+ 2.5 - 3.5 Potassium Chloride (Klor-Con) 40 meq PER TUBE ASDIR PRN PRN Reason: FOR SERUM K+ 2.5-3.5 Promethazine HCl (Phenergan) 25 mg IM Q4H PRN PRN Reason: Nausea/Vomiting Sodium Chloride (Flush - Normal Saline) 10 ml IVF Q12HR [place] Last Admin: 07/18/17 08:25 Dose: 10 ml Sodium Chloride (Flush - Normal Saline) 10 ml IVF PRN PRN PRN Reason: Saline Flush Last Admin: 06/28/17 08:49 Dose: 10 ml
[2017-07-18] MEDS: Labetalol HCl 100 MG/20 ML VIAL SLOW IVP PRN ×3 (16:20→22:07)
[2017-07-18 19:01] LABS: Hemoglobin 9.7 g/dL (14.0-18.0); Platelet Count 342 thou/uL (130-400)
[2017-07-18] MEDS ORDERED: Ondansetron HCl/PF 4 MG/2 ML Vial SLOW IVP PRN (21:40)
[2017-07-19] MEDS: niCARdipine HCl 25 MG in Sodium Chloride 0.9% 250 ML 240 ML IVPB PRN ×3 (00:06→09:48)
[2017-07-19] MEDS: Sodium Chloride 0.9% 1,000 ML IV SCH ×3 (01:36→21:28)
[2017-07-19 04:13] LABS: INR-International Normal Ratio 1.2; PTT 40.6 SEC (22.9-36.1); Prothrombin Time 15.7 SEC (12.0-14.7)
[2017-07-19 04:35] LABS: Anion Gap 9 mmol/L (10-20); BUN (Urea Nitrogen) 10 mg/dL (8.9-20.6); Calc. Creatinine Clearance 220 mL/min (70-130); Calcium 8.8 mg/dL (7.8-10.44); Carbon Dioxide 27 mmol/L (22-29); Chloride 107 mmol/L (98-107); Estimated GFR-MDRD Greater than 90; Glucose 115 mg/dL (70-105); Potassium 3.3 mmol/L (3.5-5.1); Sodium 140 mmol/L (136-145)
--- NOTE | 2017-07-19 08:06 | PDOC.PULPN ---
Progress Note: Subj/Obj - Subjective Date: 07/19/17 Time: 08:05 Narrative: speaking really well - Objective Allergies/Adverse Reactions: Allergies Allergy/AdvReac Type Severity Reaction Status Date / Time ibuprofen Allergy Verified 07/02/17 09:00 MAR Reviewed: Yes Vital Signs: Vital Signs Temp 98.9 F 07/19/17 03:00 Pulse 114 H 07/19/17 07:26 Resp 14 07/19/17 07:26 BP 169/116 H 07/18/17 22:07 Pulse Ox 99 07/19/17 07:26 Intake & Output 07/18/17 07/19/17 07/19/17 18:59 06:59 18:59 Intake Total 2068 2278 Output Total 1453 1245 110 Balance 615 1033 -110 Weight 3.693 oz Intake: Intake, IV Amount 1227 2006 CEFAZOLIN/Water 2 G/20 ML 20 2 gm SLOW IVP 1000,1800, 2359 [facility] Rx#:[id number] Heparin 25,000 units/D5W 176 158 500 ml @ Per Protocol IVPB INF [place] Rx#:[id number] Potassium Chloride 40 meq 250 In Sodium Chloride 0.9% 250 ML 250 ml @ 135 mls/ hr IVPB ASDIR PRN Rx#: [id number] Sodium Chloride 0.9% 1, 1051 1246 000 ml @ 100 mls/hr IV . Q10H [facility] Rx#:[id number] levETIRAcetam 750 mg In 100 Sodium Chloride 0.9% 100 ml @ 215 mls/hr IVPB BID [facility] Rx#:[id number] niCARdipine HCl 25 mg In 233 Sodium Chloride 0.9% 250 ML 240 ml @ Titrate IVPB INF PRN Rx#:[id number] Tube Feeding 636 241 Tube Irrigant 205 30 Output: Drainage 18 RT VENTRIC 18 Output, Ta 1435 1215 110 Intracranial Drainage 30 Other: Voiding Method Indwelling Catheter Indwelling Catheter # Bowel Movements 1 2 Progress Note: Exam - Physical Exam Constitutional: NAD HEENT: PERRLA Neck: no JVD Cardiovascular: RRR Respiratory: clear to auscultation bilaterally Gastrointestinal: soft, non-tender Musculoskeletal: edema present Neurological: non-focal Progress Note: Data - Labs Result Diagrams: 07/18/17 18:50 07/19/17 03:47 Progress Note: A/P - Problems (1) DVT, bilateral lower limbs Current Visit: Yes Status: Acute Code(s): I82.403 - ACUTE EMBOLISM AND THOMBOS UNSP DEEP VEINS OF LOW EXTRM, BI (2) Pulmonary embolism Current Visit: Yes Status: Acute Code(s): I26.99 - OTHER PULMONARY EMBOLISM WITHOUT ACUTE COR PULMONALE Qualifiers: Chronicity: acute (3) SAH (subarachnoid hemorrhage) Current Visit: Yes Status: Acute Code(s): I60.9 - NONTRAUMATIC SUBARACHNOID HEMORRHAGE, UNSPECIFIED (4) Seizure as late effect of cerebrovascular accident (CVA) Current Visit: Yes Status: Acute Code(s): I69.398 - OTHER SEQUELAE OF CEREBRAL INFARCTION; R56.9 - UNSPECIFIED CONVULSIONS - Plan Plan: GAME ENGINEER shunt today doing well otherwise restart anticoagulation as soon as possible
[2017-07-19] MEDS: Carvedilol 6.25 MG TAB PO SCH ×2 (09:22→17:58)
[2017-07-19] MEDS: Aquaphor 30 GM 99 GM, Cholestyramine/Aspartame 4 GM TOP SCH ×2 (09:33→21:29)
[2017-07-19] MEDS: hydrALAZINE 25 MG TAB PO SCH ×3 (09:33→21:27)
[2017-07-19] MEDS: Pantoprazole 40 MG GRANULES PACKET PER TUBE SCH (09:33)
[2017-07-19] MEDS ORDERED: CEFAZOLIN/Water 2 GM/20 ML SYRINGE SLOW IVP SCH ×2 (10:00→14:00)
[2017-07-19] MEDS ORDERED: Midazolam HCl 2 mg/2 ml Vial ONE (10:29)
[2017-07-19] MEDS ORDERED: Fentanyl 250 MCG/5 ML VIAL ONE (10:29)
[2017-07-19] MEDS ORDERED: Promethazine HCl 25 MG/ML VIAL ONE (10:29)
[2017-07-19] MEDS ORDERED: Protamine Sulfate 50 MG/5 ML VIAL ONE (10:43)
[2017-07-19] MEDS ORDERED: Sodium Chloride 0.9% 10 ML ONE (10:46)
[2017-07-19] MEDS ORDERED: PHENYLEPHRINE-NS 100 MCG/ML 10 ML SYRINGE ONE ×2 (11:51→14:55)
[2017-07-19] MEDS ORDERED: Phenylephrine HCL 10 MG/ML VIAL ONE (11:51)
[2017-07-19] MEDS ORDERED: Promethazine HCl 25 MG/ML VIAL SLOW IVP PRN (12:41)
[2017-07-19] MEDS ORDERED: Morphine Sulfate 2 MG/ML SYRINGE SLOW IVP PRN (12:41)
[2017-07-19] MEDS ORDERED: Ondansetron HCl/PF 4 MG/2 ML Vial IVP PRN (12:41)
--- NOTE | 2017-07-19 13:10 | PRG ---
DATE OF SERVICE: 07/19/2017 We had desired to stop the patient's heparin 24 hours prior to the procedure that [facility] until [facility]. Heparin was stopped at midnight and PTT at 3:45 in the morning was still elevated at 40.6. This was repeated at 08:30 and was still elevated at 42. We have given the patient 10 mg of protamine at 10:46 and we will wait 10 minutes prior to proceeding. The patien t will also get 2 units of FFP. We intend to hold all anticoagulation for 48 hours following the procedure at which point it can be r esumed. Overall, the patient is at high risk procedurally given his DVT/PE and need for anticoagulat ion and I have discussed this with his family.
--- NOTE | 2017-07-19 14:09 | PDOC.PN ---
- Subjective Encounter Start Date: 07/19/17 Encounter Start Time: 14:09 - Objective Vital Signs & Weight: Vital Signs (12 hours) Temp Pulse Resp Pulse Ox 07/19/17 13:30 99 07/19/17 13:00 97.8 F 07/19/17 08:00 98.7 F 117 H 19 100 07/19/17 07:26 114 H 14 99 07/19/17 03:00 98.9 F Weight Admit Weight 231 lb 0.711 oz Weight 3.693 oz Most Recent Monitor Data Heart Rate from ECG 79 NIBP 138/88 NIBP BP-Mean 115 Respiration from ECG 12 SpO2 99 I&O: 07/18/17 07/19/17 07/20/17 06:59 06:59 06:59 Intake Total 4487 4346 Output Total 2675 2698 960 Balance 1772 1648 -960 Result Diagrams: 07/18/17 18:50 07/19/17 03:47 Dx/Plan (1) Pulmonary embolism Code(s): I26.99 - OTHER PULMONARY EMBOLISM WITHOUT ACUTE COR PULMONALE Status : Acute Qualifiers: Chronicity: acute Comment: multiple emboli noted on CTA, OAC when PEG site established cont heparin drip for now (2) DVT, bilateral lower limbs Code(s): I82.403 - ACUTE EMBOLISM AND THOMBOS UNSP DEEP VEINS OF LOW EXTRM, BI Status: Acute Comment: Heparin gtt resumed, OAC when stabilizing and likely PEG route available (3) SAH (subarachnoid hemorrhage) Code(s): I60.9 - NONTRAUMATIC SUBARACHNOID HEMORRHAGE, UNSPECIFIED Status: Acute Comment: s/p EVD per NS.s/p coiling PCOM region aneurysm, s/p ventriculostomy with EVD Plans for IMAGING CENTER MANAGER shunt later this week (4) Seizure as late effect of cerebrovascular accident (CVA) Code(s): I69.398 - OTHER SEQUELAE OF CEREBRAL INFARCTION; R56.9 - UNSPECIFIED CONVULSIONS Status: Acute Comment: Increase Keppra 750mg IV q12h, consult Neurology service for evaluation (5) Encephalopathy Code(s): G93.40 - ENCEPHALOPATHY, UNSPECIFIED Status: Acute Comment: Improving.Due to ICH (6) Sinus tachycardia Code(s): R00.0 - TACHYCARDIA, UNSPECIFIED Status: Acute Comment: Etiology unclear, suspect neuro-mediated, increase Coreg 6.25mg BID, consider titrating Coreg after extubation (7) Metabolic acidosis Code(s): E87.2 - ACIDOSIS Status: Resolved (8) NSTEMI (non-ST elevated myocardial infarction) Code(s): I21.4 - NON-ST ELEVATION (NSTEMI) MYOCARDIAL INFARCTION Status: Acute Comment: conservative management per cardiology (9) Lactic acid acidosis Code(s): E87.2 - ACIDOSIS Status: Resolved (10) HTN (hypertension) Code(s): I10 - ESSENTIAL (PRIMARY) HYPERTENSION Status: Chronic (11) Uncontrolled hypertension Code(s): I10 - ESSENTIAL (PRIMARY) HYPERTENSION Status: Resolved (12) Acute hypoxemic respiratory failure Code(s): J96.01 - ACUTE RESPIRATORY FAILURE WITH HYPOXIA Status: Resolved Comment: Extubated successfully 06/23/17 (13) Dysphagia Code(s): R13.10 - DYSPHAGIA, UNSPECIFIED Status: Acute Qualifiers: Dysphagia type: oropharyngeal phase Qualified Code(s): R13.12 - Dysphagia, oropharyngeal phase Comment: continue tube feeds.tolerating so far. s/p PEG placement - Plan * . Review of Systems - Medications/Allergies Allergies/Adverse Reactions: Allergies Allergy/AdvReac Type Severity Reaction Status Date / Time ibuprofen Allergy Verified 07/02/17 09:00 Medications: Current Medications Acetaminophen (Tylenol Elixir) 650 mg PER TUBE Q4H PRN PRN Reason: Fever Last Admin: 07/09/17 10:14 Dose: 650 mg Albuterol/Ipratropium (Duoneb) 3 ml NEB T4HA-RS ON LICENSE OF [facility] Last Admin: 07/19/17 07:26 Dose: 3 ml Carvedilol (Coreg) 6.25 mg PO BID-WM ON [facility] OF [facility] Last Admin: 07/19/17 09:22 Dose: 6.25 mg Cefazolin Sodium (Ancef) 2 gm SLOW IVP Q8HR [place] Stop: 07/20/17 06:01 Mineral Oil/White Petrolatum 99 gm/ Cholestyramine Resin 4 gm 0 gm TOP BID [place] Last Admin: 07/19/17 09:33 Dose: Not Given Mineral Oil/White Petrolatum 99 gm/ Cholestyramine Resin 4 gm 0 gm TOP PRN PRN PRN Reason: WOUND CARE Last Admin: 07/15/17 08:28 Dose: 1 top Diphenhydramine HCl (Benadryl) 50 mg IVP Q6H PRN PRN Reason: Itching Last Admin: 07/02/17 01:43 Dose: 50 mg Fentanyl (Pacu-Sublimaze) 50 mcg SLOW IVP Q10MIN PRN PRN Reason: Moderate to Severe Pain (6-10) Stop: 07/19/17 15:41 Hydralazine HCl (Apresoline) 20 mg SLOW IVP Q4H PRN PRN Reason: Hypertension Last Admin: 06/26/17 13:37 Dose: 20 mg Hydralazine HCl (Apresoline) 50 mg PO TID [place] Last Admin: 07/19/17 09:33 Dose: Not Given Heparin Sodium/Dextrose (Heparin 25,000 Units/D5w 500 Ml) 500 mls @ 0 mls/hr IVPB INF [place]; Per Protocol PRN Reason: Protocol Last Admin: 07/18/17 06:28 Dose: 500 mls Dextrose/Sodium Chloride (D5 1/2 Ns) 1,000 mls @ 0 mls/hr IV .Q0M ON LICENSE OF [facility] PRN Reason: KVO Last Admin: 07/11/17 21:53 Dose: 1,000 mls Levetiracetam 750 mg/ Sodium (Chloride) 107.5 mls @ 215 mls/hr IVPB BID ON [facility] OF [facility] Last Admin: 07/19/17 09:53 Dose: 107.5 mls Sodium Chloride (Normal Saline 0.9%) 1,000 mls @ 100 mls/hr IV .Q10H ON [facility] OF [facility] Last Admin: 07/19/17 09:21 Dose: Not Given Potassium Chloride 40 meq/ (Sodium Chloride) 270 mls @ 135 mls/hr IVPB ASDIR PRN PRN Reason: FOR SERUM K+ 2.5 - 3.5 Last Admin: 07/19/17 05:07 Dose: 270 mls Potassium Chloride 40 meq/ (Device) 100 mls @ 50 mls/hr IVPB ASDIR PRN PRN Reason: FOR SERUM K+ 2.5 - 3.5 Magnesium Sulfate 1 gm/ Sodium (Chloride) 102 mls @ 102 mls/hr IV PRN PRN PRN Reason: MAG LEVEL 1.4 - 2.0 Magnesium Sulfate 2 gm/ Device 100 mls @ 100 mls/hr IVPB ASDIR PRN PRN Reason: MAGNESIUM < 1.4 Potassium Phosphate 9 mmol/ (Sodium Chloride) 103 mls @ 25.75 mls/hr IVPB ASDIR PRN PRN Reason: Phosphate 1.0-1.8 Potassium Phosphate 12 mmol/ (Sodium Chloride) 254 mls @ 63.5 mls/hr IV ASDIR PRN PRN Reason: Serum phosphate 0.5-0.9 Potassium Phosphate 15 mmol/ (Sodium Chloride) 255 mls @ 63.75 mls/hr IV ASDIR PRN PRN Reason: Serum Phos < 0.5 Nicardipine HCl 25 mg/ Sodium (Chloride) 250 mls @ 0 mls/hr IVPB INF PRN; Protocol; Titrate PRN Reason: SBP GREATER THAN 160 Last Admin: 07/19/17 09:48 Dose: 250 mls Labetalol HCl (Normodyne) 10 mg SLOW IVP Q10MIN PRN PRN Reason: SBP > 140, HR > 70 Last Admin: 07/18/17 22:07 Dose: 10 mg Lactulose (Lactulose) 30 gm PER TUBE TID ON [facility] OF [facility] Last Admin: 07/19/17 09:33 Dose: Not Given Magnesium Oxide (Magnesium Oxide) 400 mg PO BIDPRN PRN PRN Reason: FOR SERUM MAG 1.4 - 2.0 Magnesium Oxide (Magnesium Oxide) 800 mg PO PRN PRN PRN Reason: FOR SERUM MAG < 1.4 Miscellaneous Medication (Ccu Electrolyte Replacement) 1 each FS ASDIR [place] Miscellaneous Medication (Phos-Nak) 1 pkt PO TIDPRN PRN PRN Reason: FOR PHOS LEVEL 1.0 - 1.8 Miscellaneous Medication (Phos-Nak) 2 pkt PO TIDPRN PRN PRN Reason: FOR PHOS LEVEL 0.5 - 1.0 Morphine Sulfate (Morphine) 2 mg SLOW IVP Q1H PRN PRN Reason: breakthrough pain/agitation Stop: 08/11/17 15:40 Morphine Sulfate (Pacu-Morphine Sulfate) 2 mg SLOW IVP Q10MIN PRN PRN Reason: Moderate to Severe Pain (6-10) Stop: 07/19/17 15:41 Morphine Sulfate (Pacu-Morphine Sulfate) 4 mg SLOW IVP ONE PRN PRN Reason: Moderate to Severe Pain (6-10) Stop: 07/19/17 15:41 Discontinue Previous Narcotic Pain Medications And Benzodiazepines 1 each FS .ONE ON LICENSE OF [facility] Stop: 08/11/17 15:40 Ccu Electrolyte (Replacement Protocol) 0 each FS PRN PRN PRN Reason: FOR ELECTROLYTE REPLACEMENT Ondansetron HCl (Zofran) 4 mg SLOW IVP Q4H PRN PRN Reason: Nausea/Vomiting Ondansetron HCl (Pacu-Zofran) 4 mg IVP ONE PRN PRN Reason: Nausea/Vomiting Stop: 07/19/17 15:41 Pantoprazole Sodium (Protonix) 40 mg PER TUBE DAILY [facility] Last Admin: 07/19/17 09:33 Dose: Not Given Potassium Chloride (K-Dur) 40 meq PO ASDIR PRN PRN Reason: FOR SERUM K+ 2.5 - 3.5 Potassium Chloride (Klor-Con) 40 meq PER TUBE ASDIR PRN PRN Reason: FOR SERUM K+ 2.5-3.5 Promethazine HCl (Phenergan) 25 mg IM Q4H PRN PRN Reason: Nausea/Vomiting Last Admin: 07/18/17 20:31 Dose: 25 mg Promethazine HCl (Pacu-Phenergan) 6.25 mg SLOW IVP ONE PRN PRN Reason: Nausea/Vomiting Stop: 07/19/17 15:41 Sodium Chloride (Flush - Normal Saline) 10 ml IVF Q12HR ON LICENSE OF [facility] Last Admin: 07/19/17 09:33 Dose: Not Given Sodium Chloride (Flush - Normal Saline) 10 ml IVF PRN PRN PRN Reason: Saline Flush Last Admin: 06/28/17 08:49 Dose: 10 ml
[2017-07-19] MEDS ORDERED: PROPOFOL 200 MG/20 ML VIAL ONE (14:55)
[2017-07-19] MEDS ORDERED: ePHEDrine/0.9% NaCl/PF SYRINGE 50 mg/10 ml ONE (14:55)
[2017-07-19] MEDS ORDERED: Glycopyrrolate 0.2 MG/ML 5 ML SYRINGE ONE (14:55)
[2017-07-19] MEDS ORDERED: Lidocaine 1% PF 5 ML VIAL ONE (14:55)
--- NOTE | 2017-07-19 14:58 | OP ---
DATE OF PROCEDURE: 07/19/2017 SURGEON: Teo Galindo M.D. LENS GRINDING MACHINE OPERATOR: Ochoa. CO-SURGEON: Allen Javier M.D. PROCEDURE PERFORMED: Placement of ventriculoperitoneal shunt. PROCEDURE IN DETAIL: The patient was brought to the operating room, intubated. He was positioned escobar pine, head turned to the left exposing the right parietooccipital region down through the abdomen. W e performed a curvilinear incision in the right parieto-occipital region, placed a bur hole, coagulat ed the dura and placed a ventricular catheter, obtained brisk CSF flow. Dr. Javier exposed the abdo men and we subcutaneously passed the peritoneal catheter with a separate stab incision in the cervica l region. The valve was programmed to a setting of 1.[address] in the parietooccipital reg ion. All wounds were extensively irrigated, immaculate hemostasis was secured, and the wounds were c losed in anatomic layers.
[2017-07-19] MEDS: CEFAZOLIN/Water 2 GM/20 ML SYRINGE SLOW IVP SCH (19:56)
[2017-07-20] MEDS: CEFAZOLIN/Water 2 GM/20 ML SYRINGE SLOW IVP SCH ×2 (04:41→11:28)
[2017-07-20] MEDS: Sodium Chloride 0.9% 1,000 ML IV SCH ×3 (04:42→22:07)
[2017-07-20 05:29] LABS: Anion Gap 8 mmol/L (10-20); BUN (Urea Nitrogen) 9 mg/dL (8.9-20.6); Calc. Creatinine Clearance 0 mL/min (70-130); Calcium 9.2 mg/dL (7.8-10.44); Carbon Dioxide 27 mmol/L (22-29); Chloride 108 mmol/L (98-107); Estimated GFR-MDRD Greater than 90; Glucose 107 mg/dL (70-105); Sodium 140 mmol/L (136-145)
[2017-07-20] MEDS: Labetalol HCl 100 MG/20 ML VIAL SLOW IVP PRN (05:55)
[2017-07-20] MEDS: Pantoprazole 40 MG GRANULES PACKET PER TUBE SCH (08:25)
[2017-07-20] MEDS: Carvedilol 6.25 MG TAB PO SCH ×2 (08:25→16:09)
[2017-07-20] MEDS: Aquaphor 30 GM 99 GM, Cholestyramine/Aspartame 4 GM TOP PRN ×2 (08:26→08:33)
[2017-07-20] MEDS: hydrALAZINE 25 MG TAB PO SCH ×3 (08:26→21:15)
[2017-07-20] MEDS: Aquaphor 30 GM 99 GM, Cholestyramine/Aspartame 4 GM TOP SCH ×2 (08:34→21:21)
--- NOTE | 2017-07-20 08:37 | PRG ---
DATE OF SERVICE: 07/20/2017 Marcos looks about the same. He had a ventricular peritoneal shunt placed yesterday and seems to be doing okay. PHYSICAL EXAMINATION: VITAL SIGNS: Temperature 99.5, pulse 114, blood pressure 149/105, 24 hour intake 2285, output 3097. HEENT: Unremarkable. NECK: No JVD. CHEST: Clear. CARDIAC: S1, S2 regular. ABDOMEN: Soft. EXTREMITIES: No edema. LABORATORY DATA: Sodium 140, potassium 3, chloride 108, CO2 79, creatinine 0.6, glucose 107, hemogl obin 9.7, hematocrit 29.7, platelet count 342. ASSESSMENT: 1. Deep venous thrombosis/pulmonary embolus. 2. Subarachnoid hemorrhage. 3. Status post multiple episodes of increased intracranial pressure finally necessitating ventricula r peritoneal shunt. 4. Improved encephalopathy. PLAN: 1. Heparin drip has been ordered for tomorrow at 1:00 p.m. - Neurosurgery thought that will be the e arliest time that would be safe to re-anticoagulate him. 2. When okay with them would also start Coumadin. 3. Continue tube feeds. 4. Transfer to stroke when okay with Neurosurgery.
--- NOTE | 2017-07-20 09:03 | PDOC.PN ---
- Subjective Encounter Start Date: 07/20/17 Encounter Start Time: 09:03 Subjective: nursing reports that he was Awake and orinetedX3 all night long, -: now tired and sleepy.would not talk at this time -: no acute ON events - Objective MAR Reviewed: Yes Vital Signs & Weight: Vital Signs (12 hours) Temp Pulse Resp BP Pulse Ox 07/20/17 08:00 100.7 F H 07/20/17 06:52 99 07/20/17 06:50 113 H 14 99 07/20/17 05:55 122 H 153/102 H 07/20/17 04:00 99.5 F 07/20/17 00:55 122 H 16 100 07/20/17 00:00 99.5 F 122 H 16 98 07/19/17 21:27 114 H 150/98 H Weight Admit Weight 231 lb 0.711 oz Weight 232 lb 2.348 oz Most Recent Monitor Data Heart Rate from ECG 116 NIBP 148/97 NIBP BP-Mean 117 Respiration from ECG 18 SpO2 100 I&O: 07/19/17 07/20/17 07/21/17 06:59 06:59 06:59 Intake Total 4346 2282 50 Output Total 2698 3097 163 Balance 1648 -815 -113 Result Diagrams: 07/18/17 18:50 07/20/17 04:40 Additional Labs: Microbiology 07/05/17 15:19 Stool C. difficile GDH Antigen & Toxins - Final 07/02/17 12:10 Lumbar Body Fluid Culture - Final 06/17/17 14:05 Sputum Respiratory Culture - Final Staphylococcus aureus Laboratory Tests 07/12/17 07/12/17 07/13/17 05:56 18:20 04:39 Hgb 10.3 L 9.4 L 9.2 L 07/14/17 07/16/17 07/18/17 19:15 18:10 18:50 Hgb 9.2 L 9.2 L 9.7 L LABS REVIEWED Phys Exam - Physical Examination Constitutional: NAD HEENT: PERRLA, moist MMs, sclera anicteric, oral pharynx no lesions Neck: no nodes, no JVD, supple, full ROM Respiratory: no wheezing, no rales, no rhonchi, clear to auscultation bilateral Cardiovascular: RRR, no significant murmur, no rub Gastrointestinal: soft, non-tender, no distention, positive bowel sounds Musculoskeletal: no edema, pulses present left hemiparesis.somnolence and confusion this am Skin: no rash Dx/Plan (1) Pulmonary embolism Code(s): I26.99 - OTHER PULMONARY EMBOLISM WITHOUT ACUTE COR PULMONALE Status : Acute Qualifiers: Chronicity: acute Comment: multiple emboli noted on CTA, OAC when PEG site established heparin drip on hold post TRACK HELPER shunt till tomorrow (2) DVT, bilateral lower limbs Code(s): I82.403 - ACUTE EMBOLISM AND THOMBOS UNSP DEEP VEINS OF LOW EXTRM, BI Status: Acute Comment: OAC when stabilizing (3) SAH (subarachnoid hemorrhage) Code(s): I60.9 - NONTRAUMATIC SUBARACHNOID HEMORRHAGE, UNSPECIFIED Status: Acute Comment: s/p EVD per NS.s/p coiling PCOM region aneurysm, s/p ventriculostomy with EVD TRACK HELPER shunt done07/19/17 (4) Seizure as late effect of cerebrovascular accident (CVA) Code(s): I69.398 - OTHER SEQUELAE OF CEREBRAL INFARCTION; R56.9 - UNSPECIFIED CONVULSIONS Status: Acute Comment: Increase Keppra 750mg IV q12h, consult Neurology service for evaluation (5) Encephalopathy Code(s): G93.40 - ENCEPHALOPATHY, UNSPECIFIED Status: Acute Comment: Improving.Due to ICH (6) Sinus tachycardia Code(s): R00.0 - TACHYCARDIA, UNSPECIFIED Status: Acute Comment: Etiology unclear, suspect neuro-mediated, increase Coreg 6.25mg BID, consider titrating Coreg after extubation (7) Metabolic acidosis Code(s): E87.2 - ACIDOSIS Status: Resolved (8) NSTEMI (non-ST elevated myocardial infarction) Code(s): I21.4 - NON-ST ELEVATION (NSTEMI) MYOCARDIAL INFARCTION Status: Acute Comment: conservative management per cardiology (9) Lactic acid acidosis Code(s): E87.2 - ACIDOSIS Status: Resolved (10) HTN (hypertension) Code(s): I10 - ESSENTIAL (PRIMARY) HYPERTENSION Status: Chronic (11) Uncontrolled hypertension Code(s): I10 - ESSENTIAL (PRIMARY) HYPERTENSION Status: Resolved (12) Acute hypoxemic respiratory failure Code(s): J96.01 - ACUTE RESPIRATORY FAILURE WITH HYPOXIA Status: Resolved Comment: Extubated successfully 06/23/17 (13) Dysphagia Code(s): R13.10 - DYSPHAGIA, UNSPECIFIED Status: Acute Qualifiers: Dysphagia type: oropharyngeal phase Qualified Code(s): R13.12 - Dysphagia, oropharyngeal phase Comment: continue tube feeds.tolerating so far. s/p PEG placement - Plan vásquez catheter, PT/OT, speech therapy, incentive spirometry, DVT proph w/SCDs heparin drip on hold as per NS recs.monitor closely given PE & DVT -: resume heparin drip tomorrow at 1.00 pm -: s/p TRACK HELPER shunt -: HD stable.BP controlled.use PRN meds for high values -: cont current care.meds as below.am labs * . Review of Systems - Review of Systems Other: can not be obtained as pt sleepy and would not converse - Medications/Allergies Allergies/Adverse Reactions: Allergies Allergy/AdvReac Type Severity Reaction Status Date / Time ibuprofen Allergy Verified 07/02/17 09:00 Medications: Current Medications Acetaminophen (Tylenol Elixir) 650 mg PER TUBE Q4H PRN PRN Reason: Fever Last Admin: 07/09/17 10:14 Dose: 650 mg Albuterol/Ipratropium (Duoneb) 3 ml NEB [id number] [facility] Last Admin: 07/20/17 06:50 Dose: 3 ml Carvedilol (Coreg) 6.25 mg PO BID-WM [facility] Last Admin: 07/20/17 08:25 Dose: 6.25 mg Cefazolin Sodium (Ancef) 2 gm SLOW IVP Q8H [place] Stop: 07/20/17 11:01 Last Admin: 07/20/17 04:41 Dose: 2 gm Mineral Oil/White Petrolatum 99 gm/ Cholestyramine Resin 4 gm 0 gm TOP BID [place] Last Admin: 07/20/17 08:34 Dose: Not Given Mineral Oil/White Petrolatum 99 gm/ Cholestyramine Resin 4 gm 0 gm TOP PRN PRN PRN Reason: WOUND CARE Last Admin: 07/20/17 08:26 Dose: 1 top Diphenhydramine HCl (Benadryl) 50 mg IVP Q6H PRN PRN Reason: Itching Last Admin: 07/02/17 01:43 Dose: 50 mg Hydralazine HCl (Apresoline) 20 mg SLOW IVP Q4H PRN PRN Reason: Hypertension Last Admin: 06/26/17 13:37 Dose: 20 mg Hydralazine HCl (Apresoline) 50 mg PO TID [place] Last Admin: 07/20/17 08:26 Dose: 50 mg Heparin Sodium/Dextrose (Heparin 25,000 Units/D5w 500 Ml) 500 mls @ 0 mls/hr IVPB INF [place]; Per Protocol PRN Reason: Protocol Last Admin: 07/18/17 06:28 Dose: 500 mls Dextrose/Sodium Chloride (D5 1/2 Ns) 1,000 mls @ 0 mls/hr IV .Q0M [place] PRN Reason: KVO Last Admin: 07/11/17 21:53 Dose: 1,000 mls Levetiracetam 750 mg/ Sodium (Chloride) 107.5 mls @ 215 mls/hr IVPB BID [place] Last Admin: 07/20/17 08:25 Dose: 107.5 mls Sodium Chloride (Normal Saline 0.9%) 1,000 mls @ 100 mls/hr IV .Q10H [facility] Last Admin: 07/20/17 04:42 Dose: Not Given Potassium Chloride 40 meq/ (Sodium Chloride) 270 mls @ 135 mls/hr IVPB ASDIR PRN PRN Reason: FOR SERUM K+ 2.5 - 3.5 Last Admin: 07/19/17 05:07 Dose: 270 mls Potassium Chloride 40 meq/ (Device) 100 mls @ 50 mls/hr IVPB ASDIR PRN PRN Reason: FOR SERUM K+ 2.5 - 3.5 Magnesium Sulfate 1 gm/ Sodium (Chloride) 102 mls @ 102 mls/hr IV PRN PRN PRN Reason: MAG LEVEL 1.4 - 2.0 Magnesium Sulfate 2 gm/ Device 100 mls @ 100 mls/hr IVPB ASDIR PRN PRN Reason: MAGNESIUM < 1.4 Potassium Phosphate 9 mmol/ (Sodium Chloride) 103 mls @ 25.75 mls/hr IVPB ASDIR PRN PRN Reason: Phosphate 1.0-1.8 Potassium Phosphate 12 mmol/ (Sodium Chloride) 254 mls @ 63.5 mls/hr IV ASDIR PRN PRN Reason: Serum phosphate 0.5-0.9 Potassium Phosphate 15 mmol/ (Sodium Chloride) 255 mls @ 63.75 mls/hr IV ASDIR PRN PRN Reason: Serum Phos < 0.5 Nicardipine HCl 25 mg/ Sodium (Chloride) 250 mls @ 0 mls/hr IVPB INF PRN; Protocol; Titrate PRN Reason: SBP GREATER THAN 160 Last Admin: 07/19/17 09:48 Dose: 250 mls Labetalol HCl (Normodyne) 10 mg SLOW IVP Q10MIN PRN PRN Reason: SBP > 140, HR > 70 Last Admin: 07/20/17 05:55 Dose: 10 mg Lactulose (Lactulose) 30 gm PER TUBE TID [place] Last Admin: 07/20/17 08:26 Dose: Not Given Magnesium Oxide (Magnesium Oxide) 400 mg PO BIDPRN PRN PRN Reason: FOR SERUM MAG 1.4 - 2.0 Magnesium Oxide (Magnesium Oxide) 800 mg PO PRN PRN PRN Reason: FOR SERUM MAG < 1.4 Miscellaneous Medication (Ccu Electrolyte Replacement) 1 each FS ASDIR [facility] Miscellaneous Medication (Phos-Nak) 1 pkt PO TIDPRN PRN PRN Reason: FOR PHOS LEVEL 1.0 - 1.8 Miscellaneous Medication (Phos-Nak) 2 pkt PO TIDPRN PRN PRN Reason: FOR PHOS LEVEL 0.5 - 1.0 Morphine Sulfate (Morphine) 2 mg SLOW IVP Q1H PRN PRN Reason: breakthrough pain/agitation Stop: 08/11/17 15:40 Discontinue Previous Narcotic Pain Medications And Benzodiazepines 1 each FS .ONE [facility] Stop: 08/11/17 15:40 Ccu Electrolyte (Replacement Protocol) 0 each FS PRN PRN PRN Reason: FOR ELECTROLYTE REPLACEMENT Ondansetron HCl (Zofran) 4 mg SLOW IVP Q4H PRN PRN Reason: Nausea/Vomiting Pantoprazole Sodium (Protonix) 40 mg PER TUBE DAILY [facility] Last Admin: 07/20/17 08:25 Dose: 40 mg Potassium Chloride (K-Dur) 40 meq PO ASDIR PRN PRN Reason: FOR SERUM K+ 2.5 - 3.5 Potassium Chloride (Klor-Con) 40 meq PER TUBE [place]IR PRN PRN Reason: FOR SERUM K+ 2.5-3.5 Last Admin: 07/20/17 05:55 Dose: 40 meq Promethazine HCl (Phenergan) 25 mg IM Q4H PRN PRN Reason: Nausea/Vomiting Last Admin: 07/18/17 20:31 Dose: 25 mg Sodium Chloride (Flush - Normal Saline) 10 ml IVF Q12HR [place] Last Admin: 07/20/17 08:25 Dose: 10 ml Sodium Chloride (Flush - Normal Saline) 10 ml IVF PRN PRN PRN Reason: Saline Flush Last Admin: 06/28/17 08:49 Dose: 10 ml
[2017-07-20 18:09] LABS: Hemoglobin 6.1 g/dL (14.0-18.0); Platelet Count 171 thou/uL (130-400)
--- NOTE | 2017-07-20 19:00 | OP ---
DATE OF PROCEDURE: 07/13/2017 PROCEDURE PERFORMED: Esophagogastroduodenoscopy with PEG tube placement. ANESTHESIA: General endotracheal anesthesia, the patient was on ventilator in the ICU for the proced ure. POSTOPERATIVE DIAGNOSIS: Adequately placed PEG tube by transillumination and finger indentation and Ponsky pull technique under sterile conditions with no complications. PROCEDURE IN DETAIL: After patient's family gave informed consent in the ICU where the patient was i ntubated, the patient was prepped and draped in a sterile fashion. He is on antibiotics prophylactic ally already. None additionally was given. Once the patient was carefully sedated with propofol on the ventilator, was placed in the incisural orifice. The endoscope was advanced to the esophag us, stomach, second and third portion of duodenum. The scope was brought back into the stomach were adequate place for PEG tube placement was identified by transillumination and finger indentation. Th e PEG tube was placed by Ponsky pull technique. A second look confirmed good placement. Abdomen was then dressed by the nurses. The scope was removed. The patient tolerated the procedure well with n o complications.
[2017-07-20 20:05] LABS: Hemoglobin 9.2 g/dL (14.0-18.0)
--- NOTE | 2017-07-20 20:51 | OP ---
DATE OF PROCEDURE: 07/19/2017 PREOPERATIVE DIAGNOSIS: Hydrocephalus. POSTOPERATIVE DIAGNOSIS: Hydrocephalus. PROCEDURES: Diagnostic laparoscopy, placement of permanent intra-abdominal drain (abdominal part of FLOAT PHLEBOTOMIST shunt.) SURGEON: Allen Javier M.D. ANESTHESIA: General. ESTIMATED BLOOD LOSS: Minimal. COMPLICATIONS: None. SPECIMEN: None. TECHNIQUE: The patient was taken to the operating room and placed supine on the table. After genera l anesthetic was obtained, the abdomen, chest, right neck and scalp were shaved, prepped, and draped in a sterile fashion. Neurosurgery performed exposure for the FLOAT PHLEBOTOMIST shunt and the FLOAT PHLEBOTOMIST shunt tubing was t unneled to the upper abdomen. Curved incision was made below the umbilicus. Cautery was used to dis sect down to and score the fascia. Abdominal cavity entered bluntly using a Hansa clamp followed by 5 mm sleeve. High-flow pneumoperitoneum was obtained. Right upper quadrant 5-mm port was placed as well. A 5-mm trocar was used to pass into the right upper quadrant through the above-mentioned incis ion above where the FLOAT PHLEBOTOMIST shunt tubing is coming from. This allowed the FLOAT PHLEBOTOMIST shunt tubing new placed into the right upper quadrant. All port sites were infiltrated using local anesthetic. All ports were r emoved under camera visualization. Pneumoperitoneum was let down. PDS was used to close the fascial defect below the umbilicus. All incisions were irrigated and closed using 4-0 Monocryl and Dermabon d. Patient was en route to recovery in stable condition. All instrument counts, needle counts, and lap counts were correct.
[2017-07-20] MEDS: Acetaminophen 650 MG/20.3 ML UDCUP PER TUBE PRN (21:15)
--- NOTE | 2017-07-21 04:55 | PDOC.EVN ---
Event Note - Event Note Event Note: RN called - Pt had 2 sec pause. Labs pending. Mg and P added.
[2017-07-21 06:40] LABS: Magnesium 1.6 mg/dL (1.6-2.6); Phosphorus 2.7 mg/dL (2.3-4.7)
[2017-07-21 06:43] LABS: Anion Gap 9 mmol/L (10-20); BUN (Urea Nitrogen) 10 mg/dL (8.9-20.6); Calc. Creatinine Clearance 222 mL/min (70-130); Calcium 8.6 mg/dL (7.8-10.44); Carbon Dioxide 23 mmol/L (22-29); Chloride 109 mmol/L (98-107); Estimated GFR-MDRD Greater than 90; Glucose 114 mg/dL (70-105); Sodium 138 mmol/L (136-145)
--- NOTE | 2017-07-21 09:18 | PDOC.PN ---
- Subjective Encounter Start Date: 07/21/17 Encounter Start Time: :18 Subjective: wakes up but does not converse except grunting.goes back to sleep -: H/H drop yesterday but recheck was found to be normal - Objective MAR Reviewed: Yes Vital Signs & Weight: Vital Signs (12 hours) Temp Pulse Resp BP Pulse Ox 07/21/17 08:00 100.2 F H 99 18 163/97 H 100 07/21/17 07:34 111 H 20 98 07/21/17 04:00 99.8 F H 121 H 20 158/102 H 95 07/21/17 00:07 121 H 20 97 07/20/17 23:57 99.9 F H 120 H 20 139/81 94 L Weight Admit Weight 234 lb 2.095 oz Weight 237 lb 4.8 oz Most Recent Monitor Data Heart Rate from ECG 110 NIBP 140/96 NIBP BP-Mean 119 Respiration from ECG 13 SpO2 100 I&O: 07/20/17 07/21/17 07/22/17 06:59 06:59 06:59 Intake Total 2282 827 Output Total 3097 1013 Balance -815 -186 Result Diagrams: 07/21/17 05:51 07/21/17 05:53 Additional Labs: Laboratory Tests 07/21/17 05:53 Phosphorus 2.7 Magnesium 1.6 EKG Reviewed by me: Yes (Tele-NSR) Phys Exam - Physical Examination Constitutional: NAD opens eyes w verbal stimuli HEENT: PERRLA, moist MMs, sclera anicteric, oral pharynx no lesions Neck: no JVD, supple Respiratory: no wheezing, no rales, no rhonchi, clear to auscultation bilateral Cardiovascular: RRR, no significant murmur, no rub Gastrointestinal: soft, non-tender, positive bowel sounds mildly distended Musculoskeletal: no edema, pulses present does not participate in exam Psychiatric: normal affect Dx/Plan (1) Pulmonary embolism Code(s): I26.99 - OTHER PULMONARY EMBOLISM WITHOUT ACUTE COR PULMONALE Status : Acute Qualifiers: Chronicity: acute Comment: multiple emboli noted on CTA, OAC when PEG site established heparin drip to be restarted today (2) DVT, bilateral lower limbs Code(s): I82.403 - ACUTE EMBOLISM AND THOMBOS UNSP DEEP VEINS OF LOW EXTRM, BI Status: Acute Comment: OAC when stabilizing (3) SAH (subarachnoid hemorrhage) Code(s): I60.9 - NONTRAUMATIC SUBARACHNOID HEMORRHAGE, UNSPECIFIED Status: Acute Comment: s/p EVD per NS.s/p coiling PCOM region aneurysm, s/p ventriculostomy with EVD PLATE COLORER shunt done07/19/17 (4) Seizure as late effect of cerebrovascular accident (CVA) Code(s): I69.398 - OTHER SEQUELAE OF CEREBRAL INFARCTION; R56.9 - UNSPECIFIED CONVULSIONS Status: Acute Comment: Increase Keppra 750mg IV q12h, consult Neurology service for evaluation (5) Encephalopathy Code(s): G93.40 - ENCEPHALOPATHY, UNSPECIFIED Status: Acute Comment: Improving.Due to ICH (6) Sinus tachycardia Code(s): R00.0 - TACHYCARDIA, UNSPECIFIED Status: Acute Comment: Etiology unclear, suspect neuro-mediated, increase Coreg 6.25mg BID, consider titrating Coreg after extubation (7) Metabolic acidosis Code(s): E87.2 - ACIDOSIS Status: Resolved (8) NSTEMI (non-ST elevated myocardial infarction) Code(s): I21.4 - NON-ST ELEVATION (NSTEMI) MYOCARDIAL INFARCTION Status: Acute Comment: conservative management per cardiology (9) Lactic acid acidosis Code(s): E87.2 - ACIDOSIS Status: Resolved (10) HTN (hypertension) Code(s): I10 - ESSENTIAL (PRIMARY) HYPERTENSION Status: Chronic (11) Uncontrolled hypertension Code(s): I10 - ESSENTIAL (PRIMARY) HYPERTENSION Status: Resolved (12) Acute hypoxemic respiratory failure Code(s): J96.01 - ACUTE RESPIRATORY FAILURE WITH HYPOXIA Status: Resolved Comment: Extubated successfully 06/23/17 (13) Dysphagia Code(s): R13.10 - DYSPHAGIA, UNSPECIFIED Status: Acute Qualifiers: Dysphagia type: oropharyngeal phase Qualified Code(s): R13.12 - Dysphagia, oropharyngeal phase Comment: continue tube feeds.tolerating so far. s/p PEG placement - Plan PT/OT, speech therapy, respiratory therapy, incentive spirometry, DVT proph w/ SCDs restart heparin drip today if OK w neuroSx.monitor PTT. -: replace and recheck potassium. -: change keppra to PO by PEG -: encourage rehab from here on w OOB as tolerated. -: minimize sedation. * .BP controlled.monitor closely * am labs * follow H/H closely * low grade fever -unclear significance.? due to ICH.if perisists ,may need to r /o shunt complication,bacteremia,aspiration PNA. * check CBC in am. Hold off on ABx for now Review of Systems - Medications/Allergies Allergies/Adverse Reactions: Allergies Allergy/AdvReac Type Severity Reaction Status Date / Time ibuprofen Allergy Verified 07/02/17 09:00 Medications: Current Medications Acetaminophen (Tylenol Elixir) 650 mg PER TUBE Q4H PRN PRN Reason: Fever Last Admin: 07/20/17 21:15 Dose: 650 mg Albuterol/Ipratropium (Duoneb) 3 ml NEB [id number] [place] Last Admin: 07/21/17 07:34 Dose: 3 ml Carvedilol (Coreg) 6.25 mg PO BID-WM [place] Last Admin: 07/20/17 16:09 Dose: 6.25 mg Mineral Oil/White Petrolatum 99 gm/ Cholestyramine Resin 4 gm 0 gm TOP BID [place] Last Admin: 07/20/17 21:21 Dose: Not Given Mineral Oil/White Petrolatum 99 gm/ Cholestyramine Resin 4 gm 0 gm TOP PRN PRN PRN Reason: WOUND CARE Last Admin: 07/20/17 08:26 Dose: 1 top Diphenhydramine HCl (Benadryl) 50 mg IVP Q6H PRN PRN Reason: Itching Last Admin: 07/02/17 01:43 Dose: 50 mg Hydralazine HCl (Apresoline) 20 mg SLOW IVP Q4H PRN PRN Reason: Hypertension Last Admin: 06/26/17 13:37 Dose: 20 mg Hydralazine HCl (Apresoline) 50 mg PO TID [place] Last Admin: 07/20/17 21:15 Dose: 50 mg Heparin Sodium/Dextrose (Heparin 25,000 Units/D5w 500 Ml) 500 mls @ 0 mls/hr IVPB INF [place]; Per Protocol PRN Reason: Protocol Last Admin: 07/18/17 06:28 Dose: 500 mls Dextrose/Sodium Chloride (D5 1/2 Ns) 1,000 mls @ 0 mls/hr IV .Q0M [place] PRN Reason: KVO Last Admin: 07/11/17 21:53 Dose: 1,000 mls Sodium Chloride (Normal Saline 0.9%) 1,000 mls @ 100 mls/hr IV .Q10H [place] Last Admin: 07/20/17 22:07 Dose: 1,000 mls Magnesium Sulfate 1 gm/ Sodium (Chloride) 102 mls @ 102 mls/hr IV PRN PRN PRN Reason: MAG LEVEL 1.4 - 2.0 Magnesium Sulfate 2 gm/ Device 100 mls @ 100 mls/hr IVPB ASDIR PRN PRN Reason: MAGNESIUM < 1.4 Labetalol HCl (Normodyne) 10 mg SLOW IVP Q10MIN PRN PRN Reason: SBP > 140, HR > 70 Last Admin: 07/20/17 05:55 Dose: 10 mg Lactulose (Lactulose) 30 gm PER TUBE TID [facility] Last Admin: 07/20/17 21:22 Dose: Not Given Levetiracetam (Keppra Oral Solution) 750 mg PER TUBE BID [place] Magnesium Oxide (Magnesium Oxide) 400 mg PO BIDPRN PRN PRN Reason: FOR SERUM MAG 1.4 - 2.0 Magnesium Oxide (Magnesium Oxide) 800 mg PO PRN PRN PRN Reason: FOR SERUM MAG < 1.4 Miscellaneous Medication (Ccu Electrolyte Replacement) 1 each FS ASDIR [place] Morphine Sulfate (Morphine) 2 mg SLOW IVP Q1H PRN PRN Reason: breakthrough pain/agitation Stop: 08/11/17 15:40 Discontinue Previous Narcotic Pain Medications And Benzodiazepines 1 each FS .ONE [facility] Stop: 08/11/17 15:40 Ccu Electrolyte (Replacement Protocol) 0 each FS PRN PRN PRN Reason: FOR ELECTROLYTE REPLACEMENT Ondansetron HCl (Zofran) 4 mg SLOW IVP Q4H PRN PRN Reason: Nausea/Vomiting Pantoprazole Sodium (Protonix) 40 mg PER TUBE DAILY [facility] Last Admin: 07/20/17 08:25 Dose: 40 mg Potassium Chloride (K-Dur) 40 meq PER TUBE ONE [facility] Potassium Chloride (K-Dur) 40 meq PER TUBE [facility] Promethazine HCl (Phenergan) 25 mg IM Q4H PRN PRN Reason: Nausea/Vomiting Last Admin: 07/18/17 20:31 Dose: 25 mg Sodium Chloride (Flush - Normal Saline) 10 ml IVF Q12HR [facility] Last Admin: 07/20/17 21:22 Dose: Not Given Sodium Chloride (Flush - Normal Saline) 10 ml IVF PRN PRN PRN Reason: Saline Flush Last Admin: 06/28/17 08:49 Dose: 10 ml
--- NOTE | 2017-07-21 09:19 | PRG ---
DATE OF SERVICE: 07/21/2017 The patient is doing fairly decent. He was able to verbalize some. PHYSICAL EXAMINATION: VITAL SIGNS: Temperature 100.2, pulse 99, respirations 18, O2 sat 100% on trach collar, blood pressu re 163/97. HEENT: Unremarkable. NECK: No JVD. CHEST: Clear. CARDIAC: S1 and S2 regular. ABDOMEN: Soft. EXTREMITIES: No edema. LABORATORY: PTT is 50.2, hemoglobin 9.2, hematocrit 27.6 yesterday. Sodium 138, potassium 3, chlori de 109, CO2 23, BUN 10, creatinine 0.6, glucose 114. ASSESSMENT: 1. Deep venous thrombosis/pulmonary embolus. 2. Status post subarachnoid hemorrhage. 3. Slightly improved encephalopathy. PLAN: 1. Continuing heparin drip. 2. Start warfarin when okay from the Neurosurgery team.
[2017-07-21 09:31] LABS: Hemoglobin 8.6 g/dL (14.0-18.0)
[2017-07-21] MEDS: hydrALAZINE 25 MG TAB PO SCH ×3 (09:53→22:34)
[2017-07-21] MEDS: Carvedilol 6.25 MG TAB PO SCH ×2 (09:53→17:16)
[2017-07-21] MEDS: Aquaphor 30 GM 99 GM, Cholestyramine/Aspartame 4 GM TOP SCH ×2 (09:54→22:36)
[2017-07-21] MEDS: Pantoprazole 40 MG GRANULES PACKET PER TUBE SCH (09:54)
[2017-07-21] MEDS: Sodium Chloride 0.9% 1,000 ML IV SCH (09:55)
[2017-07-21] MEDS: Warfarin Sodium 5 MG TAB PO SCH (17:20)
[2017-07-21] MEDS ORDERED: levETIRAcetam 100 mg/ml Oral Solution PER TUBE SCH (21:00)
[2017-07-21] MEDS: levETIRAcetam 500 mg/5 ml Oral Solution PER TUBE SCH (22:35)
[2017-07-22 04:40] LABS: #Eosinphils 0.2 thou/uL (0.0-0.7); #Lymphocytes 1.3 thou/uL (1.20-3.40); #Monocytes 0.7 thou/uL (0.11-0.59); #Neutrophils 2.7 thou/uL (1.40-6.50); %Basophils 0.3 % (0.0-1.0); %Eosinophils 4.5 % (0.0-10.0); %Lymphocytes 26.5 % (21.0-51.0); %Monocytes 13.8 % (0.0-10.0); Hemoglobin 8.5 g/dL (14.0-18.0); Mean Corpuscular HGB CONC 33.1 g/dL (32.0-36.0); Mean Corpuscular Hemoglobin 33.5 pg (27.0-31.0); Mean Platelet Volume 8.8 fL (7.4-10.4); Platelet Count 255 thou/uL (130-400); RBC Distribution Width 15.8 % (11.5-14.5); Red Blood Cell (RBC) Count 2.52 mill/uL (4.70-6.10); White Blood Cell (WBC) Count 4.8 thou/uL (4.8-10.8)
[2017-07-22 06:13] LABS: INR-International Normal Ratio 1.4; Prothrombin Time 17.3 SEC (12.0-14.7)
[2017-07-22 06:15] LABS: Anion Gap 9 mmol/L (10-20); BUN (Urea Nitrogen) 12 mg/dL (8.9-20.6); Calc. Creatinine Clearance 243 mL/min (70-130); Calcium 8.7 mg/dL (7.8-10.44); Carbon Dioxide 24 mmol/L (22-29); Chloride 108 mmol/L (98-107); Estimated GFR-MDRD Greater than 90; Glucose 96 mg/dL (70-105); Potassium 3.3 mmol/L (3.5-5.1); Sodium 138 mmol/L (136-145)
[2017-07-22] MEDS: hydrALAZINE 25 MG TAB PO SCH ×3 (08:09→22:11)
[2017-07-22] MEDS: Carvedilol 6.25 MG TAB PO SCH (08:09)
[2017-07-22] MEDS: Pantoprazole 40 MG GRANULES PACKET PER TUBE SCH (08:09)
[2017-07-22] MEDS: levETIRAcetam 500 mg/5 ml Oral Solution PER TUBE SCH ×2 (08:09→22:17)
[2017-07-22] MEDS: Acetaminophen 650 MG/20.3 ML UDCUP PER TUBE PRN (08:10)
[2017-07-22] MEDS: Aquaphor 30 GM 99 GM, Cholestyramine/Aspartame 4 GM TOP SCH ×2 (08:10→22:11)
--- NOTE | 2017-07-22 10:40 | RAD ---
CHEST 1 VIEW: HISTORY: CVA. Respiration pneumonia. Fever. COMPARISON: 07/14/17. FINDINGS: Normal cardiac silhouette. The pulmonary vessels are normal. Costophrenic angles are clear. Minima l opacity in the right lung base. No pneumothorax or osseous abnormalities. IMPRESSION: Minimal opacity in the right lung base which may represent developing pneumonia. Continued surveilla nce. POS: [facility]
[2017-07-22 12:23] LABS: Bilirubin Negative (Negative); Blood, Urine Negative (Negative); Clarity CLEAR (Clear); Glucose, Urine (Dipstick) Negative (Negative); Leukocyte Negative (Negative); Nitrite Negative (Negative); Protein, Urine (Dipstick) 30 mg/dL (Neg-Trace); Specific Gravity, Urine 1.023 (1.002-1.036); Urobilinogen 0.2 mg/dL (0.2-1.0)
[2017-07-22 12:26] LABS: Bacteria/HPF None Seen HPF (None Seen)
[2017-07-22 12:29] LABS: Pathc Cast-AUWi Flag 3.05 (0-2.49)
[2017-07-22 12:43] LABS: Renal Epithelial None Seen HPF (0-3); Transitional Epithelial NONE SEEN HPF (0-3)
[2017-07-22 12:44] LABS: Hyaline Casts/LPF 0-3 HYALINE CAST LPF (0-3 Hyaline); Manual Microscopic Reviewed? No Path Casts Seen
[2017-07-22] MEDS ORDERED: Furosemide 20 MG/2 ML VIAL SLOW IVP SCH (13:30)
--- NOTE | 2017-07-22 14:17 | PDOC.PN ---
- Subjective Encounter Start Date: 07/22/17 Encounter Start Time: 14:15 Subjective: pt pulling out PEG.nursing reports swelling in penis -: pt himself grunts and says say when asked any q -: nursing report sinus pauses - Objective MAR Reviewed: Yes Vital Signs & Weight: Vital Signs (12 hours) Temp Pulse Resp BP BP Pulse Ox 07/22/17 12:58 108 H 18 98 07/22/17 12:00 99.2 F 107 H 18 122/79 98 07/22/17 08:09 113 H 130/81 07/22/17 08:00 100.1 F H 113 H 16 130/81 92 L 07/22/17 06:51 113 H 16 98 07/22/17 03:34 99.9 F H 113 H 20 124/76 98 Weight Admit Weight 234 lb 2.095 oz Weight 238 lb 11.2 oz Most Recent Monitor Data Heart Rate from ECG 110 NIBP 140/96 NIBP BP-Mean 119 Respiration from ECG 13 SpO2 100 I&O: 07/21/17 07/22/17 07/23/17 06:59 06:59 06:59 Intake Total 827 2510 1380 Output Total 1013 Balance -186 2510 1380 Result Diagrams: 07/22/17 03:54 07/22/17 05:55 Radiology Reviewed by me: Yes (CXR-RL base opacity? PNA) Phys Exam - Physical Examination Constitutional: NAD opens eyes and answers some Qs then goes to sleep HEENT: PERRLA, moist MMs, sclera anicteric, oral pharynx no lesions Neck: no nodes, no JVD, supple, full ROM Respiratory: no wheezing, no rales, no rhonchi, clear to auscultation bilateral Cardiovascular: RRR, no significant murmur, no rub tachy Gastrointestinal: soft, non-tender, no distention, positive bowel sounds Musculoskeletal: pulses present, edema present left leg weakness,confusion Psychiatric: normal affect Skin: no rash Dx/Plan (1) Sinus pause Code(s): I45.5 - OTHER SPECIFIED HEART BLOCK Status: Acute Comment: Stop BB for now (2) Fever Code(s): R50.9 - FEVER, UNSPECIFIED Status: Acute Comment: New .Alvin developing PNA ? aspiration from PEG feeds (3) Pulmonary embolism Code(s): I26.99 - OTHER PULMONARY EMBOLISM WITHOUT ACUTE COR PULMONALE Status : Acute Qualifiers: Chronicity: acute Comment: multiple emboli noted on CTA, OAC with coumadin started yesterday per NS recs . (4) DVT, bilateral lower limbs Code(s): I82.403 - ACUTE EMBOLISM AND THOMBOS UNSP DEEP VEINS OF LOW EXTRM, BI Status: Acute Comment: OAC when stabilizing (5) SAH (subarachnoid hemorrhage) Code(s): I60.9 - NONTRAUMATIC SUBARACHNOID HEMORRHAGE, UNSPECIFIED Status: Acute Comment: s/p EVD per NS.s/p coiling PCOM region aneurysm, s/p ventriculostomy with EVD BADGER DISTILLER OPERATOR shunt done07/19/17 (6) Seizure as late effect of cerebrovascular accident (CVA) Code(s): I69.398 - OTHER SEQUELAE OF CEREBRAL INFARCTION; R56.9 - UNSPECIFIED CONVULSIONS Status: Acute Comment: keppra chnaged to Per tube BID, no more seizures (7) Encephalopathy Code(s): G93.40 - ENCEPHALOPATHY, UNSPECIFIED Status: Acute Comment: Improving.Due to ICH (8) Sinus tachycardia Code(s): R00.0 - TACHYCARDIA, UNSPECIFIED Status: Acute Comment: Etiology unclear, suspect neuro-mediated, Now with sinus pauses (9) Metabolic acidosis Code(s): E87.2 - ACIDOSIS Status: Resolved (10) NSTEMI (non-ST elevated myocardial infarction) Code(s): I21.4 - NON-ST ELEVATION (NSTEMI) MYOCARDIAL INFARCTION Status: Acute Comment: conservative management per cardiology (11) Lactic acid acidosis Code(s): E87.2 - ACIDOSIS Status: Resolved (12) HTN (hypertension) Code(s): I10 - ESSENTIAL (PRIMARY) HYPERTENSION Status: Chronic (13) Uncontrolled hypertension Code(s): I10 - ESSENTIAL (PRIMARY) HYPERTENSION Status: Resolved (14) Acute hypoxemic respiratory failure Code(s): J96.01 - ACUTE RESPIRATORY FAILURE WITH HYPOXIA Status: Resolved Comment: Extubated successfully 06/23/17 (15) Dysphagia Code(s): R13.10 - DYSPHAGIA, UNSPECIFIED Status: Acute Qualifiers: Dysphagia type: oropharyngeal phase Qualified Code(s): R13.12 - Dysphagia, oropharyngeal phase Comment: continue tube feeds.tolerating so far. s/p PEG placement - Plan PT/OT, respiratory therapy, incentive spirometry, out of bed/ambulate, DVT proph w/SCDs Check Doppler US of scrotum/penis to r/o vasular compromise -: give 1 dose lasix.IVF stopped yesterday -: add empiric ABx.UA,CXR.will also get blood Cx -: may need CSF study if fever persists.EVD & now BADGER DISTILLER OPERATOR shunt in place -: ? peritonitis.Belly soft on exam but disteneded * .Heparin drip stopped & coumadin started for PE,DVT.Daily INR.Pt not bridged for now due to brain bleed.defer to NS if OK to be bridged w heparin till INR therapeutic. * cont supportive care.High risk of decompensation due to multiple acute issues * daily labs.check LFT,lipase ,LA etc as well Review of Systems - Review of Systems Other: no obtainable as pt carrillo snot participate much .is able to say that he feels OK and is in no pain - Medications/Allergies Allergies/Adverse Reactions: Allergies Allergy/AdvReac Type Severity Reaction Status Date / Time ibuprofen Allergy Verified 07/02/17 09:00 Medications: Current Medications Acetaminophen (Tylenol Elixir) 650 mg PER TUBE Q4H PRN PRN Reason: Fever Last Admin: 07/22/17 08:10 Dose: 650 mg Albuterol/Ipratropium (Duoneb) 3 ml NEB [id number] [place] Last Admin: 07/22/17 12:58 Dose: 3 ml Mineral Oil/White Petrolatum 99 gm/ Cholestyramine Resin 4 gm 0 gm TOP BID [place] Last Admin: 07/22/17 08:10 Dose: 1 top Mineral Oil/White Petrolatum 99 gm/ Cholestyramine Resin 4 gm 0 gm TOP PRN PRN PRN Reason: WOUND CARE Last Admin: 07/20/17 08:26 Dose: 1 top Diphenhydramine HCl (Benadryl) 50 mg IVP Q6H PRN PRN Reason: Itching Last Admin: 07/02/17 01:43 Dose: 50 mg Furosemide (Lasix) 20 mg SLOW IVP 1330 [place] Stop: 07/22/17 16:00 Hydralazine HCl (Apresoline) 20 mg SLOW IVP Q4H PRN PRN Reason: Hypertension Last Admin: 06/26/17 13:37 Dose: 20 mg Hydralazine HCl (Apresoline) 50 mg PO TID [facility] Last Admin: 07/22/17 08:09 Dose: 50 mg Magnesium Sulfate 1 gm/ Sodium (Chloride) 102 mls @ 102 mls/hr IV PRN PRN PRN Reason: MAG LEVEL 1.4 - 2.0 Magnesium Sulfate 2 gm/ Device 100 mls @ 100 mls/hr IVPB ASDIR PRN PRN Reason: MAGNESIUM < 1.4 Labetalol HCl (Normodyne) 10 mg SLOW IVP Q10MIN PRN PRN Reason: SBP > 140, HR > 70 Last Admin: 07/20/17 05:55 Dose: 10 mg Lactulose (Lactulose) 30 gm PER TUBE TIDPRN PRN PRN Reason: . Levetiracetam (Keppra Oral Solution) 750 mg PER TUBE BID [facility] Last Admin: 07/22/17 08:09 Dose: 750 mg Magnesium Oxide (Magnesium Oxide) 400 mg PO BIDPRN PRN PRN Reason: FOR SERUM MAG 1.4 - 2.0 Magnesium Oxide (Magnesium Oxide) 800 mg PO PRN PRN PRN Reason: FOR SERUM MAG < 1.4 Miscellaneous Medication (Ccu Electrolyte Replacement) 1 each FS ASDIR [facility] Miscellaneous Medication (Pharmacy To Dose) 1 each PO PRN PRN PRN Reason: Pharmacy to dose Morphine Sulfate (Morphine) 2 mg SLOW IVP Q1H PRN PRN Reason: breakthrough pain/agitation Stop: 08/11/17 15:40 Discontinue Previous Narcotic Pain Medications And Benzodiazepines 1 each FS .ONE [facility] Stop: 08/11/17 15:40 Ccu Electrolyte (Replacement Protocol) 0 each FS PRN PRN PRN Reason: FOR ELECTROLYTE REPLACEMENT Ondansetron HCl (Zofran) 4 mg SLOW IVP Q4H PRN PRN Reason: Nausea/Vomiting Pantoprazole Sodium (Protonix) 40 mg PER TUBE DAILY [facility] Last Admin: 07/22/17 08:09 Dose: 40 mg Potassium Chlor[facility] ([facility]lor-Con) [facility] Last Admin: 07/22/17 08:09 Dose: 40 meq Promethazine HCl (Phenergan) 25 mg IM Q4H PRN PRN Reason: Nausea/Vomiting Last Admin: 07/18/17 20:31 Dose: 25 mg Sodium Chloride (Flush - Normal Saline) 10 ml IVF Q12HR [facility] Last Admin: 07/22/17 08:10 Dose: 10 ml Sodium Chloride (Flush - Normal Saline) 10 ml IVF PRN PRN PRN Reason: Saline Flush Last Admin: 06/28/17 08:49 Dose: 10 ml Warfarin Sodium (Coumadin) 5 mg PO 1700 [facility] Last Admin: 07/21/17 17:20 Dose: 5 mg
[2017-07-22] MEDS: Warfarin Sodium 5 MG TAB PO SCH (16:14)
[2017-07-22] MEDS: MEROPENEM 1 GM/50 ML 1 GM in Premix Bag 1 BAG IVPB SCH (16:14)
[2017-07-22 16:45] LABS: Lactic Acid 0.9 mmol/L (0.5-2.2)
[2017-07-22] MEDS ORDERED: Carvedilol 6.25 MG TAB PO SCH (17:00)
--- NOTE | 2017-07-22 17:50 | PRG ---
DATE OF SERVICE: 07/22/2017 SUBJECTIVE: Dr. Darling asked me to come and see this gentleman, he is having some pauses. The patient is currently asleep. He has no chest pain or pressure. PHYSICAL EXAMINATION: VITAL SIGNS: Blood pressure 133/84, pulse is 100-110, sinus tachycardia. LUNGS: Clear. CARDIAC: Normal S1, normal S2. ABDOMEN: Soft, nontender. EXTREMITIES: No edema. The rhythm strips indicate that he has some Wenckebach. He had one episode of brief sinus pause asso ciated with a second-degree AV block type 1. ASSESSMENT: Intermittent atrioventricular block, probably related to being asleep. PLAN: He has been taken off the carvedilol. Dr. Amaro will check on the patient on Monday. No other intervention indicated at this time. No pacemaker indicated at this point.
--- NOTE | 2017-07-22 21:03 | PRG ---
DATE OF SERVICE: 07/22/2017 SUBJECTIVE: Mr. Hassan is in no distress. He is a little dysarthric. OBJECTIVE: VITAL SIGNS: His temperature is 99, heart rates 112, blood pressure 154/96, respiratory rate 16, and oximetry is 98 on room air. LUNGS: Clear. HEART: Regular rhythm. ABDOMEN: Soft. LABORATORY DATA: Chest radiograph done today is a little hazy at the right base. White count is 4.8, hemoglobin 8.5, and platelets 255. Sodium 138, potassium 3.3, chloride 108, bicarbonate 24, BUN 12, creatinine 0.57. IMPRESSION: 1. Deep vein thrombosis/pulmonary embolism. 2. Subarachnoid bleed. 3. Anticoagulation. Reviewing orders. Meropenem was started today by the Hospitalist. His radiographic abnormalities gutierrez ve been reviewed, this could simply be mucous plugging and atelectasis. He has a normal white count and no fever, temperature of 99 is totally consistent with mucus plugging and atelectasis. PLAN: Continue to follow along with session to his physical therapy, needs to be advanced as tolerat ed. The is requesting that he be put on the chair.
--- NOTE | 2017-07-22 22:48 | ULT ---
TESTICULAR AND PENILE ULTRASOUND WITH DOPPLER IMAGING 07/22/17 INDICATION: Swelling of the penis and testicles. TECHNIQUE: Muñiz scale, color doppler and spectral doppler images were obtained in the scrotum and testicles. FINDINGS: Right testicle measures 3.2 x 2.2 x 2.5 cm. Left testicle measures 3.1 x 2 x 2 cm. No intratesticular mass or torsion is evident. There is normal vascular flow to both testicles. Epididymi appear within normal limits. There are bilateral hydroceles. Arterial waveforms seen within an artery at the base of the penis. There is increased vascularity involving the skin of the distal shaft of the penis near the areas of swelling which is nonspecific. IMPRESSION: 1. No intratesticular mass or torsion demonstrated. 2. Bilateral hydroceles. 3. Arterial waveform is seen within the shaft of the penis. There is increased vascularity invol ving the distal shaft of the penis near the area of more prominent swelling and may reflect skin infe ction of the foreskin and glans penis. Recommend correlation. POS: ALPHONSO
[2017-07-23] MEDS: MEROPENEM 1 GM/50 ML 1 GM in Premix Bag 1 BAG IVPB SCH ×3 (01:05→16:19)
[2017-07-23 05:56] LABS: INR-International Normal Ratio 1.7; Prothrombin Time 20.6 SEC (12.0-14.7)
[2017-07-23 06:01] LABS: #Eosinphils 0.3 thou/uL (0.0-0.7); #Lymphocytes 1.4 thou/uL (1.20-3.40); #Monocytes 0.6 thou/uL (0.11-0.59); #Neutrophils 2.5 thou/uL (1.40-6.50); %Eosinophils 5.5 % (0.0-10.0); %Monocytes 12.2 % (0.0-10.0); %Neutrophils 52.3 % (42.0-75.0); Hemoglobin 8.2 g/dL (14.0-18.0); Mean Corpuscular HGB CONC 32.5 g/dL (32.0-36.0); Mean Platelet Volume 8.1 fL (7.4-10.4); Platelet Count 322 thou/uL (130-400); RBC Distribution Width 15.5 % (11.5-14.5); Red Blood Cell (RBC) Count 2.47 mill/uL (4.70-6.10); White Blood Cell (WBC) Count 4.8 thou/uL (4.8-10.8)
[2017-07-23 06:13] LABS: ALT (SGPT) 9 U/L (8-55); AST (SGOT) 17 U/L (5-34); Albumin 2.7 g/dL (3.5-5.0); Alkaline Phosphatase 72 U/L (40-150); Anion Gap 9 mmol/L (10-20); BUN (Urea Nitrogen) 12 mg/dL (8.9-20.6); Bilirubin, Total 0.2 mg/dL (0.2-1.2); Calc. Creatinine Clearance 223 mL/min (70-130); Calcium 8.7 mg/dL (7.8-10.44); Carbon Dioxide 27 mmol/L (22-29); Chloride 107 mmol/L (98-107); Estimated GFR-MDRD Greater than 90; Globulin 3.3 g/dL (2.4-3.5); Glucose 105 mg/dL (70-105); Potassium 3.1 mmol/L (3.5-5.1)
[2017-07-23 06:32] LABS: Sodium 140 mmol/L (136-145)
[2017-07-23] MEDS: hydrALAZINE 25 MG TAB PO SCH ×3 (08:54→21:45)
[2017-07-23] MEDS: Pantoprazole 40 MG GRANULES PACKET PER TUBE SCH (08:55)
[2017-07-23] MEDS: levETIRAcetam 500 mg/5 ml Oral Solution PER TUBE SCH ×2 (08:57→21:46)
[2017-07-23] MEDS: Aquaphor 30 GM 99 GM, Cholestyramine/Aspartame 4 GM TOP SCH ×2 (08:59→21:47)
--- NOTE | 2017-07-23 10:32 | PRG ---
DATE OF SERVICE: 07/23/2017 SUBJECTIVE: Mr. Hassan is clinically stable. From a neurologic perspective, he continues to do we ll after his shunt. He had a low-grade temperature and it unclear whether this represents concern fo r infection. This is being evaluated by the hospitalists. There is low suspicion for a shunt relate d infection in the soon following the procedure. From a neurosurgical perspective, he can continue on anticoagulation for his DVT/PE. No further imag ing plan at this time. Sutures will be removed at [address] follow up CT scan will be performed in 4 weeks.
--- NOTE | 2017-07-23 12:52 | PRG ---
DATE OF SERVICE: 07/23/2017 SUBJECTIVE: Mr. Hassan was evaluated. There are no new acute issues that are aware of. OBJECTIVE: VITAL SIGNS: He is afebrile, heart rate is 104, blood pressure 139/86, respiratory rate is 18, oxime try is 96 on room air, blood pressure 159/96. LUNGS: Clear anteriorly. CARDIOVASCULAR: Regular rhythm. ABDOMEN: Soft. IMPRESSION: 1. Deep venous thrombosis and pulmonary embolism. 2. Subarachnoid bleed. His INR is 1.7. We will continue to follow.
[2017-07-23 16:16] LABS: Syphilis Antibody Nonreactive (Nonreactive); Syphilis Antibody Index 0.03 S/CO (<1.00 Non-Reactive)
[2017-07-23] MEDS: Warfarin Sodium 2.5 MG TAB PER TUBE SCH (16:19)
--- NOTE | 2017-07-23 19:23 | PRG ---
DATE OF SERVICE: 07/23/2017 SUBJECTIVE: The patient is seen and examined at the bedside. The family is in the room during my vi sit. Apparently, he pulled out IV last night and he is receiving medications through his PEG tube an d he was receiving his antibiotic through the IV. OBJECTIVE: VITAL SIGNS: Blood pressure is 143/92, pulse is 116, respiratory rate is 18, pulse oximetry 96% on r oom air, temperature is 98.0. HEENT: His head is atraumatic, normocephalic. Eyes: Pupils are responding to light properly. NECK: No JVD. Thyroid is not palpable. LUNGS: Clear. HEART: S1, S2 normal, no S3, no S4. ABDOMEN: Soft, nondistended. PEG tube is in place. NEUROLOGICAL: He is able to converse with me. He follows my commands. He is able to move his extre mities. SKIN: No rash. LABORATORY DATA: Showed white count of 4.8, hemoglobin of 8.2, hematocrit 25.1 and platelet count is 322,000. INR is 1.7, PT of 20.6. Sodium of 140, potassium 3.1, chloride 107, CO2 of 27, BUN 0.62, glucose 105. The rest of chemistry within normal limits. IMPRESSION: 1. Acute subarachnoid hemorrhage. 2. Bilateral lower extremity deep venous thrombosis. 3. Pulmonary embolism. 4. Encephalopathy, improved. 5. Metabolic acidosis, resolved. 6. Hypertension, chronic. 7. Acute hypoxemic respiratory failure, resolved. PLAN: 1. The patient was seen by Dr. Galindo who recommends to continue his anticoagulation. His INR is up to 1.7. We could not decrease the dose of Coumadin to 2.5 since he jumped from 1.4-1.7 in one day with two doses of Coumadin 5 mg tablets each. He was explained to remove sutures in 2 weeks and fol low up with the CT scan in 4 weeks. 2. We are going to continue his tube feeding. He just had REAL done on his tongue since I suspected that there was a fungal infection, but it came back negative. We will restart his IV and continue hi s meropenem. Also, there is some small wound on his penis. We will do the swab and we will do the b acterial culture. Check his RPR, Herpes, PCR. His hypokalemia noted today will be treated with beatrice tional potassium 40 mEq once a day and will check his magnesium level to make sure that this is not l ow since he is supplemented with potassium daily and despite of this, his potassium is lower today th an yesterday. Also, we will continue his supportive care and INRs will be done daily to monitor his anticoagulation status. I would prefer to have his anticoagulation status in the lower side since he had this intracranial hemorrhage.
[2017-07-23] MEDS: Saccharomyces boulardii 250 MG CAP PER TUBE SCH (22:20)
[2017-07-24] MEDS: MEROPENEM 1 GM/50 ML 1 GM in Premix Bag 1 BAG IVPB SCH ×4 (01:55→23:36)
[2017-07-24 05:32] LABS: #Eosinphils 0.4 thou/uL (0.0-0.7); #Lymphocytes 1.4 thou/uL (1.20-3.40); #Monocytes 0.7 thou/uL (0.11-0.59); %Basophils 0.4 % (0.0-1.0); %Eosinophils 6.4 % (0.0-10.0); %Lymphocytes 25.9 % (21.0-51.0); %Monocytes 12.9 % (0.0-10.0); %Neutrophils 54.4 % (42.0-75.0); Hemoglobin 9.2 g/dL (14.0-18.0); Mean Corpuscular HGB CONC 33.6 g/dL (32.0-36.0); Mean Corpuscular Hemoglobin 34.1 pg (27.0-31.0); Mean Platelet Volume 8.1 fL (7.4-10.4); Platelet Count 340 thou/uL (130-400); RBC Distribution Width 15.4 % (11.5-14.5); White Blood Cell (WBC) Count 5.5 thou/uL (4.8-10.8)
[2017-07-24 05:35] LABS: INR-International Normal Ratio 1.7; Prothrombin Time 20.8 SEC (12.0-14.7)
[2017-07-24 05:52] LABS: Anion Gap 9 mmol/L (10-20); BUN (Urea Nitrogen) 10 mg/dL (8.9-20.6); Calc. Creatinine Clearance 229 mL/min (70-130); Calcium 9.3 mg/dL (7.8-10.44); Carbon Dioxide 29 mmol/L (22-29); Chloride 104 mmol/L (98-107); Estimated GFR-MDRD Greater than 90; Glucose 117 mg/dL (70-105); Potassium 3.8 mmol/L (3.5-5.1); Sodium 138 mmol/L (136-145)
[2017-07-24] MEDS: Aquaphor 30 GM 99 GM, Cholestyramine/Aspartame 4 GM TOP SCH ×2 (07:27→20:57)
[2017-07-24] MEDS: Saccharomyces boulardii 250 MG CAP PER TUBE SCH ×2 (08:39→20:56)
[2017-07-24] MEDS: hydrALAZINE 25 MG TAB PO SCH ×3 (08:39→20:56)
[2017-07-24] MEDS: levETIRAcetam 500 mg/5 ml Oral Solution PER TUBE SCH ×2 (08:40→20:56)
[2017-07-24] MEDS: Pantoprazole 40 MG GRANULES PACKET PER TUBE SCH (08:40)
[2017-07-24] MEDS: Labetalol HCl 100 MG/20 ML VIAL SLOW IVP PRN ×3 (08:42→22:29)
[2017-07-24] MEDS: Amlodipine 5 MG TAB PO SCH (08:42)
--- NOTE | 2017-07-24 09:50 | PRG ---
DATE OF SERVICE: 07/24/2017 The patient is doing better, had no complaints. PHYSICAL EXAMINATION: VITAL SIGNS: Temperature 98.5, pulse 104, respiration 16, O2 sat 97%, blood pressure 178/112. HEENT: Unremarkable. NECK: No JVD. LUNGS: Clear. CARDIAC: S1 and S2 regular. ABDOMEN: Soft. EXTREMITIES: No edema. LABORATORY DATA: INR 1.7. White blood cell count 5.5, hematocrit 27.5, platelet count 340. Sodium 130, potassium 3.8, chloride 104, CO2 29, BUN 10, creatinine 0.5, glucose 117. ASSESSMENT: 1. Pulmonary embolism/deep venous thrombosis. 2. Status post respiratory failure. 3. Status post subarachnoid hemorrhage. RECOMMENDATIONS: 1. Go ahead and stop his daily lab except for his PT and INR. 2. Try to advance his therapy in terms of speech therapy and physical therapy. 3. Placement.
--- NOTE | 2017-07-24 11:09 | PDOC.PN ---
- Subjective Encounter Start Date: 07/24/17 Encounter Start Time: 11:07 Patient seen and examined, states that he feels "in and out" and he's confused at times, but otherwise he knows whats going on at other times, no family at bedside, patient states currently he feels well and not confused, no new issues or complaints. All questions answered. - Objective Vital Signs & Weight: Vital Signs (12 hours) Temp Pulse Resp BP BP Pulse Ox 07/24/17 11:02 107 H 141/104 H 07/24/17 11:01 107 H 141/104 H 07/24/17 08:00 98.5 F 104 H 18 07/24/17 07:37 98.5 F 104 H 18 178/112 H 97 07/24/17 06:57 105 H 18 99 07/24/17 04:00 98.8 F 112 H 20 162/74 H 99 07/24/17 00:37 113 H 18 99 07/24/17 00:00 99.6 F 114 H 18 124/59 L 99 Weight Admit Weight 234 lb 2.095 oz Weight 235 lb Most Recent Monitor Data Heart Rate from ECG 110 NIBP 140/96 NIBP BP-Mean 119 Respiration from ECG 13 SpO2 100 I&O: 07/23/17 07/24/17 07/25/17 06:59 06:59 06:59 Intake Total 4245 1605 200 Balance 4245 1605 200 Result Diagrams: 07/24/17 04:37 07/24/17 04:37 Phys Exam - Physical Examination Constitutional: NAD HEENT: PERRLA, moist MMs, sclera anicteric Neck: no nodes, no JVD, supple Respiratory: no wheezing, no rales, no rhonchi Cardiovascular: RRR, no significant murmur, no rub Gastrointestinal: soft, non-tender, no distention Musculoskeletal: pulses present, edema present (trace LLE) following some commands, AAO x 3 currently no loss of sensory function B/L Skin: no rash, normal turgor Dx/Plan (1) Acute hypoxemic respiratory failure Code(s): J96.01 - ACUTE RESPIRATORY FAILURE WITH HYPOXIA Status: Resolved Comment: Extubated successfully 06/23/17 (2) Aspiration pneumonia Code(s): J69.0 - PNEUMONITIS DUE TO INHALATION OF FOOD AND VOMIT Status: Acute (3) NSTEMI (non-ST elevated myocardial infarction) Code(s): I21.4 - NON-ST ELEVATION (NSTEMI) MYOCARDIAL INFARCTION Status: Acute Comment: conservative management per cardiology (4) SAH (subarachnoid hemorrhage) Code(s): I60.9 - NONTRAUMATIC SUBARACHNOID HEMORRHAGE, UNSPECIFIED Status: Acute Comment: s/p EVD per NS.s/p coiling PCOM region aneurysm, s/p ventriculostomy with EVD CYTOGENETICIST shunt done07/19/17 (5) HTN (hypertension) Code(s): I10 - ESSENTIAL (PRIMARY) HYPERTENSION Status: Chronic - Plan * daily INR only for now, will get weekly labs * increase norvasc for elevated BP, target SBP 120-140mmHg for now * continue with PT/OT * continue warfarin, target INR 2-3 * no family at bedside
--- NOTE | 2017-07-24 15:13 | PDOC.CTH ---
Cardiology Progress Note - Subjective No changes overnight. Pt awakes to voice. No complaints. - ROS not able to obtain ROS - Objective Vital Signs Temp Pulse Resp BP BP Pulse Ox 07/24/17 13:19 107 H 15 97 07/24/17 11:22 98.5 F 100 16 165/109 H 99 07/24/17 11:02 107 H 141/104 H 07/24/17 11:01 107 H 141/104 H 07/24/17 08:00 98.5 F 104 H 18 07/24/17 07:37 98.5 F 104 H 18 178/112 H 97 07/24/17 06:57 105 H 18 99 07/24/17 04:00 98.8 F 112 H 20 162/74 H 99 Admit Weight 234 lb 2.095 oz Weight 235 lb 07/23/17 07/24/17 07/25/17 06:59 06:59 06:59 Intake Total 4245 1605 200 Balance 4245 1605 200 - Physical Examination General/Neuro: NAD Neck: carotid US brisk, no JVD present Lungs: CTA, unlabored respirations Heart: PMI normal, RRR Abdomen: NT/ND, soft Extremities: + femoral B - Labs Result Diagrams: 07/24/17 04:37 07/24/17 04:37 Troponin/CKMB CK-MB (CK-2) 2.1 ng/mL (0-6.6) 06/14/17 12:31 Troponin I 16.296 ng/mL (< 0.028) H* 06/14/17 21:52 - Assessment/Plan 1. Dysrythmias 2. ICH 3. Malignant HTN Rythm appears atable. 2nd degree type 1 AVB noted. No current treamtent with pacer indicated. Continue to monitor on tele.
[2017-07-24] MEDS: Warfarin Sodium 2.5 MG TAB PER TUBE SCH (15:57)
[2017-07-25 05:55] LABS: INR-International Normal Ratio 1.7; Prothrombin Time 20.4 SEC (12.0-14.7)
[2017-07-25 05:56] LABS: PTT 56.7 SEC (22.9-36.1)
[2017-07-25 06:00] LABS: #Eosinphils 0.4 thou/uL (0.0-0.7); #Lymphocytes 1.5 thou/uL (1.20-3.40); #Monocytes 0.7 thou/uL (0.11-0.59); #Neutrophils 2.6 thou/uL (1.40-6.50); %Basophils 0.6 % (0.0-1.0); %Eosinophils 7.7 % (0.0-10.0); %Monocytes 13.1 % (0.0-10.0); %Neutrophils 50.7 % (42.0-75.0); Hemoglobin 9.2 g/dL (14.0-18.0); Mean Corpuscular HGB CONC 32.4 g/dL (32.0-36.0); Mean Corpuscular Hemoglobin 32.4 pg (27.0-31.0); Mean Platelet Volume 7.3 fL (7.4-10.4); Platelet Count 377 thou/uL (130-400); RBC Distribution Width 15.5 % (11.5-14.5); Red Blood Cell (RBC) Count 2.85 mill/uL (4.70-6.10); White Blood Cell (WBC) Count 5.2 thou/uL (4.8-10.8)
--- NOTE | 2017-07-25 07:04 | PDOC.CTH ---
Cardiology Progress Note - Subjective NO changes overnight - Objective Vital Signs Pulse Resp BP Pulse Ox 07/25/17 06:37 105 H 16 97 07/24/17 22:29 122 H 133/81 07/24/17 20:56 118 H 139/94 H 07/24/17 20:05 111 H 16 98 Admit Weight 234 lb 2.095 oz Weight 235 lb 07/24/17 07/25/17 07/26/17 06:59 06:59 06:59 Intake Total 1605 200 Balance 1605 200 - Physical Examination General/Neuro: NAD Neck: carotid US brisk, no JVD present Lungs: CTA, unlabored respirations Heart: RRR Abdomen: no HSM, NT/ND, soft Extremities: + femoral B - Labs Result Diagrams: 07/25/17 05:10 07/24/17 04:37 Troponin/CKMB CK-MB (CK-2) 2.1 ng/mL (0-6.6) 06/14/17 12:31 Troponin I 16.296 ng/mL (< 0.028) H* 06/14/17 21:52 - Assessment/Plan Dysrythmia ICB Malignant HTN BP overall better. Rhythm stable without significant blocks. Treat conservatively. No indication for pacer. Please reconsult if needed.
[2017-07-25] MEDS ORDERED: Warfarin Sodium 2.5 MG TAB PER TUBE SCH ×2 (08:45→17:00)
--- NOTE | 2017-07-25 09:19 | PRG ---
DATE OF SERVICE: 07/25/2017 OBJECTIVE: The patient is sleeping this morning, appears to be about the same. PHYSICAL EXAMINATION: VITAL SIGNS: Temperature is 98.8 with no fever overnight, pulse 114, respirations 18, O2 sat 95%, bl ood pressure 130/85. HEENT: Unremarkable. NECK: No JVD. CHEST: Clear anteriorly. CARDIOVASCULAR: S1 and S2 regular. ABDOMEN: Soft. EXTREMITIES: No edema. LABORATORY DATA: White blood cell count 5.2, hematocrit 28.5, platelet count 377. Sodium 138, potas sium 3.8, chloride 104, CO2 29, BUN 10, creatinine 0.5, glucose 117. ASSESSMENT: 1. Status post multiple episodes of acute respiratory failure. 2. Subarachnoid hemorrhage. 3. Hydrocephalus requiring divergence for pulmonary embolus/deep venous thrombosis. RECOMMENDATIONS: 1. His INR is 1.7 which is steady, he probably needs to have an increase in his warfarin dose to get his INR at about 2.0. 2. I am not completely sure why he is on the antibiotics right now. I would encourage stopping that if there is no indication. 3. Placement.
[2017-07-25] MEDS: MEROPENEM 1 GM/50 ML 1 GM in Premix Bag 1 BAG IVPB SCH ×2 (09:42→15:30)
[2017-07-25] MEDS: Saccharomyces boulardii 250 MG CAP PER TUBE SCH ×2 (09:43→21:55)
[2017-07-25] MEDS: hydrALAZINE 25 MG TAB PO SCH ×3 (09:43→21:54)
[2017-07-25] MEDS: Amlodipine 5 MG TAB PO SCH (09:43)
[2017-07-25] MEDS: levETIRAcetam 500 mg/5 ml Oral Solution PER TUBE SCH ×2 (09:43→21:56)
[2017-07-25] MEDS: Pantoprazole 40 MG GRANULES PACKET PER TUBE SCH (09:43)
[2017-07-25] MEDS: Aquaphor 30 GM 99 GM, Cholestyramine/Aspartame 4 GM TOP PRN (09:44)
[2017-07-25] MEDS: Aquaphor 30 GM 99 GM, Cholestyramine/Aspartame 4 GM TOP SCH ×2 (09:46→22:13)
--- NOTE | 2017-07-25 10:32 | PDOC.PN ---
- Subjective Encounter Start Date: 07/25/17 Encounter Start Time: 10:30 Patient seen and examined, appears slightly confused today, no new issues per nursing staff. No family at bedside. - Objective Vital Signs & Weight: Vital Signs (12 hours) Temp Pulse Resp BP Pulse Ox 07/25/17 09:43 114 H 07/25/17 08:00 98.8 F 114 H 18 95 07/25/17 07:44 98.8 F 114 H 18 130/85 95 07/25/17 06:37 105 H 16 97 07/25/17 05:14 99.4 F 114 H 18 130/83 96 07/25/17 00:12 98.6 F 106 H 16 115/74 97 Weight Admit Weight 234 lb 2.095 oz Weight 235 lb Most Recent Monitor Data Heart Rate from ECG 110 NIBP 140/96 NIBP BP-Mean 119 Respiration from ECG 13 SpO2 100 I&O: 07/24/17 07/25/17 07/26/17 06:59 06:59 06:59 Intake Total 6225 401 6397 Balance 8404 644 3959 Result Diagrams: 07/25/17 05:10 07/24/17 04:37 Phys Exam - Physical Examination Constitutional: NAD HEENT: PERRLA, moist MMs, sclera anicteric Neck: no nodes, no JVD, supple Respiratory: no wheezing, no rales, no rhonchi Cardiovascular: RRR, no significant murmur, no rub PHILIPPE Gastrointestinal: soft, non-tender, no distention, positive bowel sounds Musculoskeletal: pulses present, edema present (trace) Neurological: normal sensation moving both upper extremities Deviation from normal: not answering questions appropriately not following all comands Dx/Plan (1) Acute hypoxemic respiratory failure Code(s): J96.01 - ACUTE RESPIRATORY FAILURE WITH HYPOXIA Status: Resolved Comment: Extubated successfully 06/23/17 (2) Aspiration pneumonia Code(s): J69.0 - PNEUMONITIS DUE TO INHALATION OF FOOD AND VOMIT Status: Acute (3) NSTEMI (non-ST elevated myocardial infarction) Code(s): I21.4 - NON-ST ELEVATION (NSTEMI) MYOCARDIAL INFARCTION Status: Acute Comment: conservative management per cardiology (4) SAH (subarachnoid hemorrhage) Code(s): I60.9 - NONTRAUMATIC SUBARACHNOID HEMORRHAGE, UNSPECIFIED Status: Acute Comment: s/p EVD per NS.s/p coiling PCOM region aneurysm, s/p ventriculostomy with EVD TECHNICAL APPLICATIONS SPECIALIST shunt done07/19/17 (5) HTN (hypertension) Code(s): I10 - ESSENTIAL (PRIMARY) HYPERTENSION Status: Chronic - Plan * INR remains at 1.7, target 2-3 for now * continue current plan of care * no family at bedside * vitals stable * further management per subspecialists
[2017-07-25] MEDS ORDERED: Warfarin Sodium 1 MG TAB PER TUBE SCH (17:00)
[2017-07-26] MEDS: MEROPENEM 1 GM/50 ML 1 GM in Premix Bag 1 BAG IVPB SCH ×2 (00:31→09:00)
[2017-07-26 04:46] LABS: #Eosinphils 0.3 thou/uL (0.0-0.7); #Lymphocytes 1.4 thou/uL (1.20-3.40); #Monocytes 0.6 thou/uL (0.11-0.59); #Neutrophils 2.4 thou/uL (1.40-6.50); %Basophils 0.4 % (0.0-1.0); %Eosinophils 6.2 % (0.0-10.0); %Lymphocytes 30.3 % (21.0-51.0); %Monocytes 13.5 % (0.0-10.0); %Neutrophils 49.6 % (42.0-75.0); Hemoglobin 9.5 g/dL (14.0-18.0); Mean Corpuscular Hemoglobin 32.2 pg (27.0-31.0); Platelet Count 392 thou/uL (130-400); RBC Distribution Width 15.5 % (11.5-14.5); Red Blood Cell (RBC) Count 2.95 mill/uL (4.70-6.10); White Blood Cell (WBC) Count 4.7 thou/uL (4.8-10.8)
[2017-07-26 04:52] LABS: INR-International Normal Ratio 1.6; PTT 56.4 SEC (22.9-36.1); Prothrombin Time 19.8 SEC (12.0-14.7)
--- NOTE | 2017-07-26 08:50 | PRG ---
DATE OF SERVICE: 07/26/2017 Mr. Hassan is arousable, but is not near as communicative as he was last week. PHYSICAL EXAMINATION: VITAL SIGNS: Temperature is 98.1, pulse 100, respirations 20, O2 saturation 97%, blood pressure 145/ 82. HEENT: Unremarkable. NECK: No JVD. CHEST: Clear. CARDIAC: S1 and S2 regular. ABDOMEN: Soft. EXTREMITIES: No edema. ASSESSMENT: 1. Status post subarachnoid hemorrhage. 2. Pulmonary embolus/deep venous thrombosis. 3. Status post HAIRCUTTER shunt placement. 4. Status post percutaneous endoscopic gastrostomy tube. PLAN: His INR is currently 1.6 and I noticed his Coumadin dose has been raised today. I am a little worried about his mental status. Neurosurgery may need to reevaluate the function of his HAIRCUTTER shunt a s the patient typically had a decompensation of his neurologic status every time his intracranial pre ssure increases.
[2017-07-26] MEDS: hydrALAZINE 25 MG TAB PO SCH ×3 (10:00→22:53)
[2017-07-26] MEDS: Aquaphor 30 GM 99 GM, Cholestyramine/Aspartame 4 GM TOP SCH ×2 (10:00→22:53)
[2017-07-26] MEDS: Saccharomyces boulardii 250 MG CAP PER TUBE SCH ×2 (10:00→22:53)
[2017-07-26] MEDS: Pantoprazole 40 MG GRANULES PACKET PER TUBE SCH (10:00)
[2017-07-26] MEDS: Amlodipine 5 MG TAB PO SCH (10:00)
[2017-07-26] MEDS: levETIRAcetam 500 mg/5 ml Oral Solution PER TUBE SCH ×2 (10:00→22:52)
--- NOTE | 2017-07-26 13:45 | PDOC.PN ---
- Subjective Encounter Start Date: 07/26/17 Encounter Start Time: 13:40 Patient seen and examined, family at bedside, all questions answered. Patient has no new issues or complaints. - Objective Vital Signs & Weight: Vital Signs (12 hours) Temp Pulse Resp BP Pulse Ox 07/26/17 11:46 98.1 F 97 18 134/82 93 L 07/26/17 10:00 109 H 07/26/17 08:00 98.1 F 109 H 20 145/92 H 97 07/26/17 06:59 108 H 18 97 07/26/17 05:00 98.7 F 98 16 156/80 H 95 Weight Admit Weight 234 lb 2.095 oz Weight 213 lb 6.4 oz Most Recent Monitor Data Heart Rate from ECG 110 NIBP 140/96 NIBP BP-Mean 119 Respiration from ECG 13 SpO2 100 I&O: 07/25/17 07/26/17 07/27/17 06:59 06:59 06:59 Intake Total 500 3610 Output Total 325 Balance 500 3285 Result Diagrams: 07/26/17 04:33 07/24/17 04:37 Phys Exam - Physical Examination Constitutional: NAD HEENT: PERRLA, moist MMs, sclera anicteric Neck: no nodes, no JVD, supple Respiratory: no wheezing, no rales, no rhonchi Cardiovascular: RRR, no significant murmur, no rub Gastrointestinal: soft, non-tender, no distention, positive bowel sounds +PEG, binder in place Musculoskeletal: pulses present, edema present (trace) Dx/Plan (1) Acute hypoxemic respiratory failure Code(s): J96.01 - ACUTE RESPIRATORY FAILURE WITH HYPOXIA Status: Resolved Comment: Extubated successfully 06/23/17 (2) Aspiration pneumonia Code(s): J69.0 - PNEUMONITIS DUE TO INHALATION OF FOOD AND VOMIT Status: Acute (3) NSTEMI (non-ST elevated myocardial infarction) Code(s): I21.4 - NON-ST ELEVATION (NSTEMI) MYOCARDIAL INFARCTION Status: Acute Comment: conservative management per cardiology (4) SAH (subarachnoid hemorrhage) Code(s): I60.9 - NONTRAUMATIC SUBARACHNOID HEMORRHAGE, UNSPECIFIED Status: Acute Comment: s/p EVD per NS.s/p coiling PCOM region aneurysm, s/p ventriculostomy with EVD TIMBER REPAIRER shunt done07/19/17 (5) HTN (hypertension) Code(s): I10 - ESSENTIAL (PRIMARY) HYPERTENSION Status: Chronic - Plan * bolus feeding for now, not continuous * warfarin at 4mg po daily, INR at 1.6 * daily Pt/INR, BMP and CBC will be done q4days * no other changes in plan for now * patient's family state that they've handed over the necessary paperwork to outside facility in order to help transfer patient * case and plan d/w patient and family at length, they understand and agree with this plan
[2017-07-26] MEDS: Warfarin Sodium 2 MG TAB PER TUBE SCH (16:10)
[2017-07-27 05:58] LABS: #Eosinphils 0.4 thou/uL (0.0-0.7); #Lymphocytes 1.6 thou/uL (1.20-3.40); #Monocytes 0.6 thou/uL (0.11-0.59); #Neutrophils 2.5 thou/uL (1.40-6.50); %Basophils 0.5 % (0.0-1.0); %Eosinophils 8.2 % (0.0-10.0); %Lymphocytes 31.7 % (21.0-51.0); %Monocytes 11.2 % (0.0-10.0); %Neutrophils 48.5 % (42.0-75.0); Mean Corpuscular HGB CONC 31.8 g/dL (32.0-36.0); Mean Corpuscular Hemoglobin 32.1 pg (27.0-31.0); Mean Platelet Volume 7.1 fL (7.4-10.4); Platelet Count 423 thou/uL (130-400); RBC Distribution Width 15.4 % (11.5-14.5); Red Blood Cell (RBC) Count 3.13 mill/uL (4.70-6.10); White Blood Cell (WBC) Count 5.1 thou/uL (4.8-10.8)
[2017-07-27 06:00] LABS: INR-International Normal Ratio 1.8; Prothrombin Time 21.6 SEC (12.0-14.7)
[2017-07-27] MEDS: Saccharomyces boulardii 250 MG CAP PER TUBE SCH ×2 (08:56→20:45)
[2017-07-27] MEDS: Pantoprazole 40 MG GRANULES PACKET PER TUBE SCH (08:57)
[2017-07-27] MEDS: hydrALAZINE 25 MG TAB PO SCH ×3 (08:57→20:44)
[2017-07-27] MEDS: Amlodipine 5 MG TAB PO SCH (08:57)
[2017-07-27] MEDS: levETIRAcetam 500 mg/5 ml Oral Solution PER TUBE SCH ×2 (08:57→20:44)
[2017-07-27] MEDS: Aquaphor 30 GM 99 GM, Cholestyramine/Aspartame 4 GM TOP SCH ×2 (08:57→20:50)
--- NOTE | 2017-07-27 11:31 | PRG ---
DATE OF SERVICE: 07/27/2017 SUBJECTIVE: Mr. Hassan appears to be doing well. He has no acute complaints. OBJECTIVE: VITAL SIGNS: On exam, temperature is 97.2, pulse 93, respirations 16, O2 sat 93%, blood pressure 139 /86. HEENT: Unremarkable. NECK: No JVD. LUNGS: Clear. CARDIAC: S1 and S2, regular. ABDOMEN: Soft. EXTREMITIES: No edema. LABORATORY DATA: His INR is 1.8. ASSESSMENT: 1. Deep vein thrombosis/pulmonary embolus. 2. Status post subarachnoid hemorrhage. 3. Status post shunt and subsequent internalization. 4. Status post PEG tube placement. PLAN: His INR is creeping closer to 2. I think at this point the only issue is placement. I will f shalom distantly with you.
--- NOTE | 2017-07-27 13:16 | RAD ---
MODIFIED BARIUM SWALLOW IN THE PRESENCE OF THE SPEECH PATHOLOGIST: HISTORY: Dysphagia following cerebral infarct. Feeding difficulties. COMPARISON: None. EXPOSURE: 6.73 mGy for 2.2 minutes FINDINGS: In the presence of the speech pathologist, the patient was administered thin liquid, nectar-thick, ho sahra-thick, and solid consistencies. There is no evidence of penetration or aspiration; however, there is a delay in the triggering of the swallowing mechanism with resultant premature spillage into the vallecula and piriform sinuses. IMPRESSION: Please refer to the speech pathologist's report. POS: [facility]
--- NOTE | 2017-07-27 13:30 | PDOC.PN ---
- Subjective Encounter Start Date: 07/27/17 Encounter Start Time: 13:28 Patient seen and examined, is confused today, and also had a transient change to a type II heart block on telemetry, back to NSR for now, no family at bedside , no other issues overnight. - Objective Vital Signs & Weight: Vital Signs (12 hours) Temp Pulse Pulse Pulse Resp BP BP 07/27/17 12:33 116 H 15 07/27/17 11:57 98.0 F 108 H 16 07/27/17 09:38 119 H 115 H 130/79 116/77 07/27/17 08:59 97.2 F L 93 16 07/27/17 08:57 93 07/27/17 07:50 97.2 F L 93 16 07/27/17 07:39 106 H 14 07/27/17 02:43 97.7 F 113 H 20 BP Pulse Ox 07/27/17 12:33 07/27/17 11:57 125/81 99 07/27/17 09:38 07/27/17 08:59 96 07/27/17 08:57 07/27/17 07:50 139/86 93 L 07/27/17 07:39 96 07/27/17 02:43 126/61 95 Weight Admit Weight 234 lb 2.095 oz Weight 207 lb 9.6 oz Most Recent Monitor Data Heart Rate from ECG 110 NIBP 140/96 NIBP BP-Mean 119 Respiration from ECG 13 SpO2 100 I&O: 07/26/17 07/27/17 07/28/17 06:59 06:59 06:59 Intake Total 3610 1600 1342 Output Total 325 200 Balance 3285 1400 1342 Result Diagrams: 07/27/17 05:30 07/24/17 04:37 Phys Exam - Physical Examination Constitutional: NAD HEENT: PERRLA, moist MMs, sclera anicteric Neck: no nodes, no JVD, supple Respiratory: no wheezing, no rales, no rhonchi Cardiovascular: RRR, no significant murmur, no rub Gastrointestinal: soft, non-tender, no distention, positive bowel sounds PEG tube present Musculoskeletal: no edema, pulses present Neurological: non-focal, normal sensation Deviation from normal: confused Dx/Plan (1) Acute hypoxemic respiratory failure Code(s): J96.01 - ACUTE RESPIRATORY FAILURE WITH HYPOXIA Status: Resolved Comment: Extubated successfully 06/23/17 (2) Aspiration pneumonia Code(s): J69.0 - PNEUMONITIS DUE TO INHALATION OF FOOD AND VOMIT Status: Acute (3) NSTEMI (non-ST elevated myocardial infarction) Code(s): I21.4 - NON-ST ELEVATION (NSTEMI) MYOCARDIAL INFARCTION Status: Acute Comment: conservative management per cardiology (4) SAH (subarachnoid hemorrhage) Code(s): I60.9 - NONTRAUMATIC SUBARACHNOID HEMORRHAGE, UNSPECIFIED Status: Acute Comment: s/p EVD per NS.s/p coiling PCOM region aneurysm, s/p ventriculostomy with EVD LIQUIFIED NATURAL GAS SPECIALIST shunt done07/19/17 (5) HTN (hypertension) Code(s): I10 - ESSENTIAL (PRIMARY) HYPERTENSION Status: Chronic - Plan * change in mental status, CT ordered * will recall cardio for transiet change to type 2 heart block * barium swallow passed well, start diet for now and will increase as he tolerates, patient's PEG tube may be able to come out depending on how he tolerates diet * no family at bedside * plan d/w ancillary and nursing staff.
--- NOTE | 2017-07-27 14:13 | CT ---
CT OF THE BRAIN WITHOUT CONTRAST: COMPARISON: 07/11/17. HISTORY: Altered mental status. History of intracranial hemorrhage status post shunt placement. TECHNIQUE: Multiple contiguous axial images were obtained in a CT of the brain without contrast. FINDINGS: There has been interval placement of a right posterior post-ventriculostomy catheter with its tip in the right lateral ventricle. There is no evidence of hydrocephalus or intraventricular hemorrhage. There is a low-density extraaxial fluid collection along the right frontal convexity measuring 6 mm i n size which may represent a chronic subdural hematoma or a subdural hygroma. No downward herniation or significant midline shift is seen. There are scattered hypodensities I the subcortical and periv entricular white matter, likely secondary to small-vessel ischemic disease. Vero are seen in the scalp. The visualized paranasal sinuses and mastoid air cells are well aerat ed. IMPRESSION: 1. Right frontal subdural hygroma. 2. Status post ventriculostomy catheter placement with decompression of the previously seen enlarged ventricles. POS: [facility]
--- NOTE | 2017-07-27 16:14 | PRG ---
DATE OF SERVICE: 07/27/2017 GI INPATIENT DAILY PROGRESS NOTE GI was called back to Mr. Hassan's room due to PEG tube malfunction. He has been receiving PEG fee ds without incident over the past week and tolerating them well. He had been picking at his PEG tube end was actually able to jackerman the tubing and cause a hole in it, just distal to the ports. The exte rnal bumper is in good position at 4 cm. The surrounding skin looks good. He complains of no abdomi nal pain. At bedside, I was able to shorten the PEG tube with scissors and reattached the external p orts. No further intervention needed from a GI perspective. GI will sign off again, but please call back with any issues.
[2017-07-27] MEDS: Warfarin Sodium 2 MG TAB PER TUBE SCH (18:08)
[2017-07-27] MEDS: Acetaminophen 650 MG/20.3 ML UDCUP PER TUBE PRN (23:04)
[2017-07-28 06:30] LABS: #Eosinphils 0.4 thou/uL (0.0-0.7); #Lymphocytes 1.4 thou/uL (1.20-3.40); #Monocytes 0.7 thou/uL (0.11-0.59); #Neutrophils 2.5 thou/uL (1.40-6.50); %Basophils 0.6 % (0.0-1.0); %Eosinophils 7.7 % (0.0-10.0); %Lymphocytes 27.2 % (21.0-51.0); %Monocytes 14.2 % (0.0-10.0); %Neutrophils 50.3 % (42.0-75.0); Hemoglobin 9.8 g/dL (14.0-18.0); Mean Corpuscular HGB CONC 31.9 g/dL (32.0-36.0); Mean Corpuscular Hemoglobin 32.2 pg (27.0-31.0); Mean Platelet Volume 7.2 fL (7.4-10.4); Platelet Count 438 thou/uL (130-400); RBC Distribution Width 15.2 % (11.5-14.5); Red Blood Cell (RBC) Count 3.04 mill/uL (4.70-6.10)
[2017-07-28 06:40] LABS: Prothrombin Time 23.7 SEC (12.0-14.7)
[2017-07-28 06:41] LABS: PTT 66.1 SEC (22.9-36.1)
[2017-07-28] MEDS: Aquaphor 30 GM 99 GM, Cholestyramine/Aspartame 4 GM TOP SCH ×2 (09:34→22:53)
[2017-07-28] MEDS: Pantoprazole 40 MG GRANULES PACKET PER TUBE SCH (09:35)
[2017-07-28] MEDS: Saccharomyces boulardii 250 MG CAP PER TUBE SCH ×2 (09:35→22:52)
[2017-07-28] MEDS: levETIRAcetam 500 mg/5 ml Oral Solution PER TUBE SCH ×2 (09:35→22:52)
[2017-07-28] MEDS: hydrALAZINE 25 MG TAB PO SCH ×3 (09:35→22:52)
[2017-07-28] MEDS: Amlodipine 5 MG TAB PO SCH (09:36)
--- NOTE | 2017-07-28 10:46 | PDOC.PN ---
- Subjective Encounter Start Date: 07/28/17 Encounter Start Time: 10:44 Patient seen and examined, no new issues, patient not confused today, much more oriented than yesterday. No family at bedside. - Objective Vital Signs & Weight: Vital Signs (12 hours) Temp Pulse Resp BP Pulse Ox 07/28/17 09:36 111 H 07/28/17 09:35 111 H 07/28/17 08:00 98.3 F 111 H 16 128/86 98 07/28/17 06:46 120 H 16 07/28/17 04:00 98.5 F 107 H 16 133/81 97 07/28/17 00:48 111 H 20 94 L 07/28/17 00:33 98.7 F 116 H 16 119/61 97 Weight Admit Weight 234 lb 2.095 oz Weight 205 lb 9.6 oz Most Recent Monitor Data Heart Rate from ECG 110 NIBP 140/96 NIBP BP-Mean 119 Respiration from ECG 13 SpO2 100 I&O: 07/27/17 07/28/17 07/29/17 06:59 06:59 06:59 Intake Total 1600 3812 490 Output Total 200 Balance 1400 3812 490 Result Diagrams: 07/28/17 05:34 07/24/17 04:37 Phys Exam - Physical Examination Constitutional: NAD HEENT: PERRLA, moist MMs, sclera anicteric negro in place, C/D/I no signs of infection Neck: no nodes, no JVD, supple, full ROM Respiratory: no wheezing, no rales, no rhonchi Cardiovascular: RRR, no significant murmur, no rub Gastrointestinal: soft, non-tender, no distention, positive bowel sounds Musculoskeletal: no edema, pulses present Neurological: non-focal, normal sensation Psychiatric: normal affect, A&O x 3 Skin: no rash, normal turgor Dx/Plan (1) Acute hypoxemic respiratory failure Code(s): J96.01 - ACUTE RESPIRATORY FAILURE WITH HYPOXIA Status: Resolved Comment: Extubated successfully 06/23/17 (2) Aspiration pneumonia Code(s): J69.0 - PNEUMONITIS DUE TO INHALATION OF FOOD AND VOMIT Status: Acute (3) NSTEMI (non-ST elevated myocardial infarction) Code(s): I21.4 - NON-ST ELEVATION (NSTEMI) MYOCARDIAL INFARCTION Status: Acute Comment: conservative management per cardiology (4) SAH (subarachnoid hemorrhage) Code(s): I60.9 - NONTRAUMATIC SUBARACHNOID HEMORRHAGE, UNSPECIFIED Status: Acute Comment: s/p EVD per NS.s/p coiling PCOM region aneurysm, s/p ventriculostomy with EVD PICTURE FRAME MAKER shunt done07/19/17 (5) HTN (hypertension) Code(s): I10 - ESSENTIAL (PRIMARY) HYPERTENSION Status: Chronic - Plan * CT scan negative, will request neuro sx to provide input on what may have caused confusion and if anything needs to be done * BP stable * PEG functional, will start PO feeds but continue with PEG as daily caloric intake requirements not being met with just PO intake * pending placement otherwise * continue current plan of care with no changes * no family at bedside. * plan d/w ancillary staff
[2017-07-28] MEDS: Warfarin Sodium 2 MG TAB PER TUBE SCH (16:55)
[2017-07-29] MEDS ORDERED: Temazepam 15 MG CAP PO SCH (00:30)
[2017-07-29 05:15] LABS: PTT 58.4 SEC (22.9-36.1)
[2017-07-29 05:17] LABS: Anion Gap 10 mmol/L (10-20); BUN (Urea Nitrogen) 10 mg/dL (8.9-20.6); Calc. Creatinine Clearance 192 mL/min (70-130); Calcium 9.8 mg/dL (7.8-10.44); Carbon Dioxide 28 mmol/L (22-29); Chloride 103 mmol/L (98-107); Estimated GFR-MDRD Greater than 90; Glucose 91 mg/dL (70-105); Potassium 4.3 mmol/L (3.5-5.1); Sodium 137 mmol/L (136-145)
[2017-07-29 05:43] LABS: Hemoglobin 10.6 g/dL (14.0-18.0); Hypochromia SLIGHT = 6-15 cells (100X) (0-5/hpf); Lymphocytes 31 % (21-51); MDiff Complete? YES; Mean Corpuscular HGB CONC 32.3 g/dL (32.0-36.0); Mean Corpuscular Hemoglobin 32.5 pg (27.0-31.0); Monocytes 18 % (0-10); Neutrophil 51 % (42-75); PLT Morphology Comment Appears Increased; Platelet Count 437 thou/uL (130-400); Red Blood Cell (RBC) Count 3.26 mill/uL (4.70-6.10); White Blood Cell (WBC) Count 4.3 thou/uL (4.8-10.8)
--- NOTE | 2017-07-29 11:22 | PRG ---
DATE OF SERVICE: 07/29/2017 SUBJECTIVE: I was called back again to Mr. Hassan's room, because he grabbed his PEG tube and essentially took it apart taking off all the ports and external bumper as well as the clamp. The PEG tube was not malpositioned. There is no evidence of cutaneous infection. He is nonverbal. PHYSICAL EXAMINATION: VITAL SIGNS: Temperature 98.2, pulse 107, blood pressure 147/94, 97% oxygen saturation on room air. GENERAL: No acute distress, resting comfortably. He does not respond to verbal stimuli or physical stimuli. HEART: Regular rate and rhythm. LUNGS: Clear to auscultation bilaterally. ABDOMEN: PEG tube remains in place, but all the ports and clamp have been removed by the patient. The PEG tube was tied off by nursing to prevent leaking. EXTREMITIES: No peripheral edema. LABORATORY STUDIES: WBC 4.3, hemoglobin 10.6, platelets 437. Sodium 137, potassium 4.3, BUN 10, creatinine 0.60. ASSESSMENT AND PLAN: PEG malfunction, caused by the patient picking at the PEG tube and essentially taking it apart. Thankfully, I was able to put the PEG tube back together at bedside. I untied the PEG tube, repositioned the external bumper at 3.5 cm, repositioned the clamp, and reattached the ports to the tube. The patient has essentially broken his clamp and so it is nonfunctional. However, with the ports closed, this really should not be an issue. I would strongly recommend steps to be taken to either restrain the patient from picking at his tube or to somehow use the abdominal binder to prevent him from doing this again. GI will sign off again, please call back if needed. PETER
[2017-07-29] MEDS: Aquaphor 30 GM 99 GM, Cholestyramine/Aspartame 4 GM TOP SCH ×2 (11:29→21:48)
[2017-07-29] MEDS: levETIRAcetam 500 mg/5 ml Oral Solution PER TUBE SCH ×2 (11:29→21:48)
[2017-07-29] MEDS: Pantoprazole 40 MG GRANULES PACKET PER TUBE SCH (11:30)
[2017-07-29] MEDS: Amlodipine 5 MG TAB PO SCH (11:30)
[2017-07-29] MEDS: Saccharomyces boulardii 250 MG CAP PER TUBE SCH ×2 (11:30→21:47)
[2017-07-29] MEDS: hydrALAZINE 25 MG TAB PO SCH ×3 (11:30→21:47)
--- NOTE | 2017-07-29 13:58 | PDOC.PN ---
- Subjective Encounter Start Date: 07/29/17 Encounter Start Time: 13:58 Patient seen and examined, no new issues or complaints, all questions answered. - Objective Vital Signs & Weight: Vital Signs (12 hours) Temp Pulse Resp BP Pulse Ox 07/29/17 12:56 110 H 14 07/29/17 11:55 97.9 F 112 H 18 134/87 97 07/29/17 11:30 107 H 07/29/17 08:00 98.2 F 107 H 18 147/94 H 97 07/29/17 06:55 120 H 16 07/29/17 03:48 97.8 F 107 H 18 121/81 95 Weight Admit Weight 234 lb 2.095 oz Weight 199 lb 3.2 oz Most Recent Monitor Data Heart Rate from ECG 110 NIBP 140/96 NIBP BP-Mean 119 Respiration from ECG 13 SpO2 100 I&O: 07/28/17 07/29/17 07/30/17 06:59 06:59 06:59 Intake Total 3812 1450 405 Balance 3812 1450 405 Result Diagrams: 07/29/17 04:45 07/29/17 04:45 Phys Exam - Physical Examination Constitutional: NAD HEENT: PERRLA, moist MMs, sclera anicteric Neck: no nodes, no JVD, supple, full ROM Respiratory: no wheezing, no rales, no rhonchi Cardiovascular: RRR, no significant murmur, no rub Gastrointestinal: soft, non-tender, no distention, positive bowel sounds PEG in place Musculoskeletal: pulses present, edema present (trace) Neurological: non-focal, normal sensation Dx/Plan (1) Acute hypoxemic respiratory failure Code(s): J96.01 - ACUTE RESPIRATORY FAILURE WITH HYPOXIA Status: Resolved Comment: Extubated successfully 06/23/17 (2) Aspiration pneumonia Code(s): J69.0 - PNEUMONITIS DUE TO INHALATION OF FOOD AND VOMIT Status: Acute (3) NSTEMI (non-ST elevated myocardial infarction) Code(s): I21.4 - NON-ST ELEVATION (NSTEMI) MYOCARDIAL INFARCTION Status: Acute Comment: conservative management per cardiology (4) SAH (subarachnoid hemorrhage) Code(s): I60.9 - NONTRAUMATIC SUBARACHNOID HEMORRHAGE, UNSPECIFIED Status: Acute Comment: s/p EVD per NS.s/p coiling PCOM region aneurysm, s/p ventriculostomy with EVD CASTINGS TRIMMER shunt done07/19/17 (5) HTN (hypertension) Code(s): I10 - ESSENTIAL (PRIMARY) HYPERTENSION Status: Chronic - Plan * continue current plan * pending placement * d/w patient
[2017-07-29] MEDS: Warfarin Sodium 2 MG TAB PER TUBE SCH (17:59)
[2017-07-29] MEDS ORDERED: Nicotine 14 MG PATCH TOP SCH (21:00)
[2017-07-30 05:09] LABS: #Eosinphils 0.3 thou/uL (0.0-0.7); #Lymphocytes 1.6 thou/uL (1.20-3.40); #Monocytes 0.6 thou/uL (0.11-0.59); #Neutrophils 1.6 thou/uL (1.40-6.50); %Basophils 0.8 % (0.0-1.0); %Eosinophils 7.8 % (0.0-10.0); %Lymphocytes 38.1 % (21.0-51.0); %Monocytes 14.5 % (0.0-10.0); %Neutrophils 38.9 % (42.0-75.0); Mean Corpuscular HGB CONC 32.1 g/dL (32.0-36.0); Mean Corpuscular Hemoglobin 32.3 pg (27.0-31.0); Mean Platelet Volume 7.2 fL (7.4-10.4); Platelet Count 444 thou/uL (130-400); RBC Distribution Width 14.9 % (11.5-14.5); Red Blood Cell (RBC) Count 3.41 mill/uL (4.70-6.10); White Blood Cell (WBC) Count 4.2 thou/uL (4.8-10.8)
[2017-07-30 05:10] LABS: INR-International Normal Ratio 1.9; Prothrombin Time 22.6 SEC (12.0-14.7)
[2017-07-30 05:11] LABS: PTT 57.2 SEC (22.9-36.1)
--- NOTE | 2017-07-30 08:12 | PDOC.PN ---
- Subjective Encounter Start Date: 07/30/17 Encounter Start Time: 08:11 Patient seen and examined, no new issues, all questions answered. - Objective Vital Signs & Weight: Vital Signs (12 hours) Temp Pulse Resp BP BP Pulse Ox 07/30/17 07:48 98.9 F 65 16 119/80 96 07/30/17 03:40 98.2 F 111 H 18 114/76 98 07/29/17 23:31 98.2 F 120 H 18 117/74 98 07/29/17 21:47 98.2 F 120 H 18 120/75 98 Weight Admit Weight 234 lb 2.095 oz Weight 195 lb 11.2 oz Most Recent Monitor Data Heart Rate from ECG 110 NIBP 140/96 NIBP BP-Mean 119 Respiration from ECG 13 SpO2 100 I&O: 07/29/17 07/30/17 07/31/17 06:59 06:59 06:59 Intake Total 1450 2283 Balance 1450 2283 Result Diagrams: 07/30/17 04:17 07/29/17 04:45 Phys Exam - Physical Examination Constitutional: NAD HEENT: PERRLA, moist MMs, sclera anicteric Neck: no nodes, no JVD, supple, full ROM Respiratory: no wheezing, no rales, no rhonchi Cardiovascular: RRR, no significant murmur, no rub Gastrointestinal: soft, non-tender, no distention, positive bowel sounds Musculoskeletal: pulses present, edema present (trace) Neurological: non-focal, normal sensation Psychiatric: normal affect, A&O x 3 Skin: no rash, normal turgor Dx/Plan (1) Acute hypoxemic respiratory failure Code(s): J96.01 - ACUTE RESPIRATORY FAILURE WITH HYPOXIA Status: Resolved Comment: Extubated successfully 06/23/17 (2) Aspiration pneumonia Code(s): J69.0 - PNEUMONITIS DUE TO INHALATION OF FOOD AND VOMIT Status: Acute (3) NSTEMI (non-ST elevated myocardial infarction) Code(s): I21.4 - NON-ST ELEVATION (NSTEMI) MYOCARDIAL INFARCTION Status: Acute Comment: conservative management per cardiology (4) SAH (subarachnoid hemorrhage) Code(s): I60.9 - NONTRAUMATIC SUBARACHNOID HEMORRHAGE, UNSPECIFIED Status: Acute Comment: s/p EVD per NS.s/p coiling PCOM region aneurysm, s/p ventriculostomy with EVD BUNGY JUMP MASTER shunt done07/19/17 (5) HTN (hypertension) Code(s): I10 - ESSENTIAL (PRIMARY) HYPERTENSION Status: Chronic - Plan * Pending placement * no changes in medical plan of care * once patient is able to eat enough calories via oral route can consider removing PEG, for now patient not able to keep up with caloric demand thus will continue with PEG and PO route * DC plans once placment arranged * INR target 2-3 * plan d/w patient, he understands and agrees with this plan
[2017-07-30] MEDS: Pantoprazole 40 MG GRANULES PACKET PER TUBE SCH (08:34)
[2017-07-30] MEDS: Saccharomyces boulardii 250 MG CAP PER TUBE SCH ×2 (08:35→20:46)
[2017-07-30] MEDS: Amlodipine 5 MG TAB PO SCH (08:35)
[2017-07-30] MEDS: hydrALAZINE 25 MG TAB PO SCH ×3 (08:35→20:48)
[2017-07-30] MEDS: levETIRAcetam 500 mg/5 ml Oral Solution PER TUBE SCH ×2 (08:35→20:48)
[2017-07-30] MEDS: Aquaphor 30 GM 99 GM, Cholestyramine/Aspartame 4 GM TOP SCH ×2 (08:36→20:49)
[2017-07-30] MEDS: Warfarin Sodium 2 MG TAB PER TUBE SCH (16:58)
[2017-07-30] MEDS ORDERED: Warfarin Sodium 0.5 MG HALF.TAB PER TUBE SCH (17:00)
[2017-07-31 05:32] LABS: #Eosinphils 0.4 thou/uL (0.0-0.7); #Lymphocytes 1.8 thou/uL (1.20-3.40); #Monocytes 0.7 thou/uL (0.11-0.59); #Neutrophils 1.8 thou/uL (1.40-6.50); %Basophils 0.6 % (0.0-1.0); %Eosinophils 8.8 % (0.0-10.0); %Lymphocytes 37.4 % (21.0-51.0); %Monocytes 14.9 % (0.0-10.0); %Neutrophils 38.3 % (42.0-75.0); Hemoglobin 11.3 g/dL (14.0-18.0); Mean Corpuscular HGB CONC 33.6 g/dL (32.0-36.0); Mean Platelet Volume 7.3 fL (7.4-10.4); Platelet Count 430 thou/uL (130-400); RBC Distribution Width 14.8 % (11.5-14.5); Red Blood Cell (RBC) Count 3.33 mill/uL (4.70-6.10); White Blood Cell (WBC) Count 4.8 thou/uL (4.8-10.8)
[2017-07-31 05:33] LABS: INR-International Normal Ratio 1.8; Prothrombin Time 21.4 SEC (12.0-14.7)
--- NOTE | 2017-07-31 09:49 | PDOC.PN ---
- Subjective Encounter Start Date: 07/31/17 Encounter Start Time: 11:20 Subjective: No changes overnight. Patient sleeping, won't wake up at this time. - Objective MAR Reviewed: Yes Vital Signs & Weight: Vital Signs (12 hours) Temp Pulse Resp BP Pulse Ox 07/31/17 08:00 98.3 F 113 H 12 118/71 98 07/31/17 04:00 97.8 F 114 H 16 127/85 97 07/31/17 00:00 98.0 F 113 H 16 160/107 H 99 Weight Admit Weight 234 lb 2.095 oz Weight 194 lb 4.8 oz Most Recent Monitor Data Heart Rate from ECG 110 NIBP 140/96 NIBP BP-Mean 119 Respiration from ECG 13 SpO2 100 I&O: 07/30/17 07/31/17 08/01/17 06:59 06:59 06:59 Intake Total 2283 160 Balance 2283 160 Result Diagrams: 07/31/17 04:48 07/29/17 04:45 Phys Exam - Physical Examination Constitutional: NAD HEENT: moist MMs Respiratory: no wheezing, no rales, no rhonchi Cardiovascular: RRR Gastrointestinal: soft, positive bowel sounds Musculoskeletal: no edema Deviation from normal: sleeping Dx/Plan (1) SAH (subarachnoid hemorrhage) Code(s): I60.9 - NONTRAUMATIC SUBARACHNOID HEMORRHAGE, UNSPECIFIED Status: Acute Comment: s/p EVD per NS.s/p coiling PCOM region aneurysm, s/p ventriculostomy with EVD ASSEMBLIES AND INSTALLATIONS INSPECTOR shunt done07/19/17 (2) DVT, bilateral lower limbs Code(s): I82.403 - ACUTE EMBOLISM AND THOMBOS UNSP DEEP VEINS OF LOW EXTRM, BI Status: Acute Comment: on Coumadin (3) Pulmonary embolism Code(s): I26.99 - OTHER PULMONARY EMBOLISM WITHOUT ACUTE COR PULMONALE Status : Acute Qualifiers: Chronicity: acute Comment: multiple emboli noted on CTA, on coumadin (4) Acute hypoxemic respiratory failure Code(s): J96.01 - ACUTE RESPIRATORY FAILURE WITH HYPOXIA Status: Resolved Comment: Extubated successfully 06/23/17 (5) Aspiration pneumonia Code(s): J69.0 - PNEUMONITIS DUE TO INHALATION OF FOOD AND VOMIT Status: Resolved (6) NSTEMI (non-ST elevated myocardial infarction) Code(s): I21.4 - NON-ST ELEVATION (NSTEMI) MYOCARDIAL INFARCTION Status: Resolved Comment: conservative management per cardiology (7) HTN (hypertension) Code(s): I10 - ESSENTIAL (PRIMARY) HYPERTENSION Status: Chronic (8) Dysphagia Code(s): R13.10 - DYSPHAGIA, UNSPECIFIED Status: Acute Qualifiers: Dysphagia type: oropharyngeal phase Qualified Code(s): R13.12 - Dysphagia, oropharyngeal phase Comment: continue tube feeds.tolerating so far. s/p PEG placement. Advancing oral intake as tolerated - Plan cont current plan of care, PT/OT, speech therapy Attempting to arrange placement in [facility] * . - Discharge Day Encounter end time: 11:30
[2017-07-31] MEDS: Saccharomyces boulardii 250 MG CAP PER TUBE SCH ×3 (09:53→22:36)
[2017-07-31] MEDS: hydrALAZINE 25 MG TAB PO SCH ×3 (09:53→22:34)
[2017-07-31] MEDS: Amlodipine 5 MG TAB PO SCH (09:53)
[2017-07-31] MEDS: Pantoprazole 40 MG GRANULES PACKET PER TUBE SCH (09:53)
[2017-07-31] MEDS: Aquaphor 30 GM 99 GM, Cholestyramine/Aspartame 4 GM TOP SCH ×2 (09:54→22:37)
[2017-07-31] MEDS: levETIRAcetam 500 mg/5 ml Oral Solution PER TUBE SCH ×2 (09:59→22:34)
--- NOTE | 2017-07-31 10:32 | CT ---
HEAD CT NONCONTRAST: Comparison: 07-27-17 Indication: Fall, head injury, follow up. FINDINGS: Re-demonstration of a right parietal approach ventriculostomy, with tip terminating at the body of th e right lateral ventricle. The ventricular system is grossly stable in size. Re-demonstration of embo lic coil mass at the right parasellar region. Extraaxial density overlying the right cerebral convexi ty is grossly stable measuring 6 mm. No new intracranial hemorrhage. IMPRESSION: 1. Grossly stable extraaxial fluid density collection overlying the right covexity. Degree of sulcal effacement is grossly stable. POS: [facility]
--- NOTE | 2017-07-31 13:19 | EKG ---
Test Reason : Blood Pressure : / mmHG Vent. Rate : 111 BPM Atrial Rate : 111 BPM P-R Int : 156 ms QRS Dur : 092 ms QT Int : 336 ms P-R-T Axes : 044 011 037 degrees QTc Int : 456 ms Sinus tachycardia Voltage criteria for left ventricular hypertrophy Nonspecific T wave abnormality Abnormal ECG When compared with ECG of 14-JUN-2017 12:35, Sinus rhythm has replaced Atrial fibrillation ST no longer elevated in Inferior leads Nonspecific T wave abnormality now evident in Lateral leads Confirmed by DR. Diamond SOLIS ([id number]) on 07/31/2017 1:19:27 PM Referred By: RORY Confirmed By:DR. Diamond SOLIS
[2017-07-31] MEDS: Warfarin Sodium 5 MG TAB PO SCH (17:28)
[2017-07-31] MEDS ORDERED: Bisacodyl 10 MG SUPP PR SCH (21:30)
[2017-07-31] MEDS: Acetaminophen 650 MG/20.3 ML UDCUP PER TUBE PRN (22:40)
[2017-08-01] MEDS: diphenhydrAMINE 50 MG CAP PER TUBE PRN ×2 (00:31→18:54)
[2017-08-01 05:44] LABS: INR-International Normal Ratio 1.9; Prothrombin Time 22.8 SEC (12.0-14.7)
[2017-08-01 06:02] LABS: Eosinophils 6 % (0-10); Hemoglobin 11.3 g/dL (14.0-18.0); Lymphocytes 47 % (21-51); MDiff Complete? YES; Mean Platelet Volume 7.1 fL (7.4-10.4); Metamyelocyte 1 % (0-0); Monocytes 15 % (0-10); Neutrophil 31 % (42-75); PLT Morphology Comment Appears Increased; Platelet Count 444 thou/uL (130-400); RBC Distribution Width 14.5 % (11.5-14.5); Red Blood Cell (RBC) Count 3.52 mill/uL (4.70-6.10); White Blood Cell (WBC) Count 3.9 thou/uL (4.8-10.8)
[2017-08-01] MEDS: hydrALAZINE 25 MG TAB PO SCH ×3 (08:26→22:47)
[2017-08-01] MEDS: levETIRAcetam 500 mg/5 ml Oral Solution PER TUBE SCH ×2 (08:26→22:48)
[2017-08-01] MEDS: Pantoprazole 40 MG GRANULES PACKET PER TUBE SCH (08:26)
[2017-08-01] MEDS: Amlodipine 5 MG TAB PO SCH (08:26)
--- NOTE | 2017-08-01 09:06 | PDOC.PN ---
- Subjective Encounter Start Date: 08/01/17 Encounter Start Time: 10:20 Subjective: Patient without complaint. Would like to go home. Thinks family -: can provide 24 hour care. No CP/SOB. - Objective MAR Reviewed: Yes Vital Signs & Weight: Vital Signs (12 hours) Temp Pulse Resp BP Pulse Ox 08/01/17 08:26 118 H 08/01/17 08:22 98.8 F 118 H 16 137/99 H 97 08/01/17 04:00 98.3 F 115 H 18 102/65 97 08/01/17 00:00 98.9 F 111 H 18 122/82 95 07/31/17 22:34 112 H Weight Admit Weight 234 lb 2.095 oz Weight 186 lb 1 oz Most Recent Monitor Data Heart Rate from ECG 110 NIBP 140/96 NIBP BP-Mean 119 Respiration from ECG 13 SpO2 100 I&O: 07/31/17 08/01/17 08/02/17 06:59 06:59 06:59 Intake Total 160 800 Balance 160 800 Result Diagrams: 08/01/17 05:25 07/29/17 04:45 Phys Exam - Physical Examination Constitutional: NAD HEENT: moist MMs Respiratory: no wheezing, no rales, no rhonchi Cardiovascular: RRR, no significant murmur Gastrointestinal: soft, non-tender, positive bowel sounds Musculoskeletal: no edema, pulses present poor lower extremity strength, especially on the left Psychiatric: normal affect Deviation from normal: Single staple and suture remaining on anterior scalp wound- healed -: right posterior scalp wound healing well, negro still in place Dx/Plan (1) SAH (subarachnoid hemorrhage) Code(s): I60.9 - NONTRAUMATIC SUBARACHNOID HEMORRHAGE, UNSPECIFIED Status: Acute Comment: s/p EVD per NS.s/p coiling PCOM region aneurysm, s/p ventriculostomy with EVD SOFTWARE SUPPORT ENGINEER shunt done07/19/17 (2) DVT, bilateral lower limbs Code(s): I82.403 - ACUTE EMBOLISM AND THOMBOS UNSP DEEP VEINS OF LOW EXTRM, BI Status: Acute Comment: on Coumadin (3) Pulmonary embolism Code(s): I26.99 - OTHER PULMONARY EMBOLISM WITHOUT ACUTE COR PULMONALE Status : Acute Qualifiers: Chronicity: acute Comment: multiple emboli noted on CTA, on coumadin (4) Acute hypoxemic respiratory failure Code(s): J96.01 - ACUTE RESPIRATORY FAILURE WITH HYPOXIA Status: Resolved Comment: Extubated successfully 06/23/17 (5) Aspiration pneumonia Code(s): J69.0 - PNEUMONITIS DUE TO INHALATION OF FOOD AND VOMIT Status: Resolved (6) NSTEMI (non-ST elevated myocardial infarction) Code(s): I21.4 - NON-ST ELEVATION (NSTEMI) MYOCARDIAL INFARCTION Status: Resolved Comment: conservative management per cardiology (7) HTN (hypertension) Code(s): I10 - ESSENTIAL (PRIMARY) HYPERTENSION Status: Chronic (8) Dysphagia Code(s): R13.10 - DYSPHAGIA, UNSPECIFIED Status: Acute Qualifiers: Dysphagia type: oropharyngeal phase Qualified Code(s): R13.12 - Dysphagia, oropharyngeal phase Comment: continue tube feeds.tolerating so far. s/p PEG placement. Advancing oral intake as tolerated - Plan cont current plan of care, PT/OT Attempting to arrange placement in [facility] vs. home with -: family. * . - Discharge Day Encounter end time: 10:35
[2017-08-01] MEDS: Aquaphor 30 GM 99 GM, Cholestyramine/Aspartame 4 GM TOP SCH ×2 (09:31→22:55)
[2017-08-01] MEDS ORDERED: Saccharomyces boulardii 250 MG CAP PER TUBE SCH (09:45)
[2017-08-01] MEDS ORDERED: Nicotine 14 MG PATCH TOP SCH ×2 (10:30→21:00)
[2017-08-01] MEDS: Warfarin Sodium 5 MG TAB PO SCH (17:54)
[2017-08-01] MEDS: Acetaminophen 325 MG TAB PER TUBE PRN (18:54)
[2017-08-01] MEDS: Saccharomyces boulardii 250 MG CAP PER TUBE SCH (22:47)
[2017-08-01] MEDS: Aquaphor 30 GM 99 GM, Cholestyramine/Aspartame 4 GM TOP PRN (22:53)
[2017-08-02 05:28] LABS: INR-International Normal Ratio 2.2
[2017-08-02 06:09] LABS: Band 1 % (5-11); Eosinophils 8 % (0-10); Lymphocytes 30 % (21-51); MDiff Complete? YES; Mean Corpuscular HGB CONC 32.8 g/dL (32.0-36.0); Mean Corpuscular Hemoglobin 32.8 pg (27.0-31.0); Mean Platelet Volume 7.4 fL (7.4-10.4); Monocytes 19 % (0-10); Neutrophil 42 % (42-75); PLT Morphology Comment Appears Increased; Platelet Count 413 thou/uL (130-400); RBC Distribution Width 14.7 % (11.5-14.5); Red Blood Cell (RBC) Count 3.65 mill/uL (4.70-6.10); White Blood Cell (WBC) Count 3.5 thou/uL (4.8-10.8)
[2017-08-02] MEDS: hydrALAZINE 25 MG TAB PO SCH ×3 (07:51→21:41)
[2017-08-02] MEDS: levETIRAcetam 500 mg/5 ml Oral Solution PO SCH ×2 (07:52→21:39)
[2017-08-02] MEDS: Saccharomyces boulardii 250 MG CAP PO SCH ×2 (07:52→21:41)
[2017-08-02] MEDS: Amlodipine 5 MG TAB PO SCH (07:53)
[2017-08-02] MEDS: Nicotine 14 MG PATCH TOP SCH (07:53)
[2017-08-02] MEDS: Aquaphor 30 GM 99 GM, Cholestyramine/Aspartame 4 GM TOP SCH ×2 (07:53→21:42)
[2017-08-02] MEDS ORDERED: Pantoprazole 40 MG GRANULES PACKET PO SCH (09:00)
--- NOTE | 2017-08-02 15:57 | PDOC.PN ---
- Subjective Encounter Start Date: 08/02/17 Encounter Start Time: 15:45 Subjective: f/u for SAH s/p ventriculostomy with coiling aneurysm PCOM. Also bilat -: PE's on chronic Coumadin. Nutritional support with [facility] soft diet. - Objective MAR Reviewed: Yes Vital Signs & Weight: Vital Signs (12 hours) Temp Pulse Resp BP Pulse Ox 08/02/17 15:22 109 H 08/02/17 12:00 97.8 F 109 H 16 124/83 98 08/02/17 08:00 98.2 F 110 H 18 112/79 100 08/02/17 07:53 113 H 08/02/17 07:51 113 H 08/02/17 04:00 97.9 F 113 H 16 109/80 98 Weight Admit Weight 234 lb 2.095 oz Weight 188 lb 3.2 oz Most Recent Monitor Data Heart Rate from ECG 110 NIBP 140/96 NIBP BP-Mean 119 Respiration from ECG 13 SpO2 100 I&O: 08/01/17 08/02/17 08/03/17 06:59 06:59 06:59 Intake Total 800 540 500 Balance 800 540 500 Result Diagrams: 08/02/17 04:45 07/29/17 04:45 Radiology Reviewed by me: Yes (CT brain 07/31/17 - stable ICH, ventriculostomy tip right lat ventricle) EKG Reviewed by me: Yes (Tele - N/A) Phys Exam - Physical Examination Constitutional: NAD HEENT: PERRLA, moist MMs, sclera anicteric, oral pharynx no lesions Neck: no nodes, no JVD, supple Respiratory: no wheezing, no rales, no rhonchi, clear to auscultation bilateral S1, S2 Cardiovascular: RRR, no significant murmur, no rub, gallop Gastrointestinal: soft, non-tender, no distention, positive bowel sounds Musculoskeletal: no edema, pulses present moves LE's but 2-3/5 LLE Neurological: normal sensation Skin: no rash, normal turgor, cap refill <2 seconds Dx/Plan (1) DVT, bilateral lower limbs Code(s): I82.403 - ACUTE EMBOLISM AND THOMBOS UNSP DEEP VEINS OF LOW EXTRM, BI Status: Acute Comment: on Coumadin with therapeutic INR, d/c daily INR checks (2) Pulmonary embolism Code(s): I26.99 - OTHER PULMONARY EMBOLISM WITHOUT ACUTE COR PULMONALE Status : Acute Qualifiers: Chronicity: acute Comment: multiple emboli noted on CTA, continue Coumadin but d/c daily INR checks (3) SAH (subarachnoid hemorrhage) Code(s): I60.9 - NONTRAUMATIC SUBARACHNOID HEMORRHAGE, UNSPECIFIED Status: Acute Comment: s/p EVD per NS.s/p coiling PCOM region aneurysm, s/p ventriculostomy with EVD 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 shunt done 07/19/17, stable region in R parietal region by CT imaging 07/31/17 (4) Seizure as late effect of cerebrovascular accident (CVA) Code(s): I69.398 - OTHER SEQUELAE OF CEREBRAL INFARCTION; R56.9 - UNSPECIFIED CONVULSIONS Status: Acute Comment: Continue Keppra 750mg BID (5) Dysphagia Code(s): R13.10 - DYSPHAGIA, UNSPECIFIED Status: Acute Qualifiers: Dysphagia type: oropharyngeal phase Qualified Code(s): R13.12 - Dysphagia, oropharyngeal phase Comment: Converted back to po intake and [facility] (6) Sinus tachycardia Code(s): R00.0 - TACHYCARDIA, UNSPECIFIED Status: Acute Comment: Etiology unclear, suspect neuro-mediated, continue to monitor - Plan plan discussed w/ family, PT/OT, psychosocial rehabilitation counselor, speech therapy, respiratory therapy, out of bed/ambulate, DVT proph w/SCDs stable overall -: Continue supportive mgmt -: Continue Coumadin 5mg daily -: PT/OT for mobilization and OOB -: Continue Protonix 40mg daily * .
[2017-08-02] MEDS: Warfarin Sodium 5 MG TAB PO SCH (17:55)
[2017-08-03 08:28] LABS: INR-International Normal Ratio 2.6; Prothrombin Time 28.7 SEC (12.0-14.7)
[2017-08-03] MEDS: hydrALAZINE 25 MG TAB PO SCH ×3 (11:38→21:30)
[2017-08-03] MEDS: levETIRAcetam 500 mg/5 ml Oral Solution PO SCH (11:38)
[2017-08-03] MEDS: Nicotine 14 MG PATCH TOP SCH (11:39)
[2017-08-03] MEDS: Amlodipine 5 MG TAB PO SCH (11:39)
[2017-08-03] MEDS: Saccharomyces boulardii 250 MG CAP PO SCH ×2 (11:39→21:30)
[2017-08-03] MEDS: Aquaphor 30 GM 99 GM, Cholestyramine/Aspartame 4 GM TOP SCH ×2 (11:41→21:32)
[2017-08-03] MEDS: Warfarin Sodium 2 MG TAB PO SCH (17:55)
[2017-08-03] MEDS: levETIRAcetam 500 MG TAB PO SCH (21:31)
[2017-08-03] MEDS: diphenhydrAMINE 50 MG CAP PER TUBE PRN (21:35)
--- NOTE | 2017-08-03 22:31 | PDOC.PN ---
- Subjective Encounter Start Date: 08/03/17 Encounter Start Time: 15:00 Subjective: f/u SAH s/p ventriculostomy with coiling aneurysm of PCOM. DVT/PE's on -: Coumadin. Nutrition per [facility] soft diet. Working with PT SBA. - Objective MAR Reviewed: Yes Vital Signs & Weight: Vital Signs (12 hours) Temp Pulse Pulse Pulse Resp BP BP 08/03/17 21:30 107 H 114/77 08/03/17 17:55 112 H 08/03/17 15:31 97.4 F L 112 H 14 08/03/17 13:49 129 H 113 H 125/78 08/03/17 11:52 97.4 F L 115 H 16 08/03/17 11:39 113 H 08/03/17 11:38 113 H BP BP Pulse Ox 08/03/17 21:30 08/03/17 17:55 08/03/17 15:31 103/70 99 08/03/17 13:49 110/77 08/03/17 11:52 119/92 H 97 08/03/17 11:39 08/03/17 11:38 Weight Admit Weight 234 lb 2.095 oz Weight 192 lb Most Recent Monitor Data Heart Rate from ECG 110 NIBP 140/96 NIBP BP-Mean 119 Respiration from ECG 13 SpO2 100 I&O: 08/02/17 08/03/17 08/04/17 06:59 06:59 06:59 Intake Total 540 1240 700 Balance 540 1240 700 Result Diagrams: 08/02/17 04:45 07/29/17 04:45 Additional Labs: Laboratory Tests 07/08/17 07/09/17 07/09/17 08:41 04:39 16:05 Hgb PT INR APTT 69.9 H 68.6 H 84.7 H Potassium 07/09/17 07/10/17 07/10/17 23:23 05:22 11:47 Hgb PT INR APTT 61.1 H 63.5 H 63.4 H Potassium 07/12/17 07/12/17 07/12/17 05:56 05:56 18:20 Hgb 10.3 L 9.4 L PT INR APTT Potassium 5.5 H 08/03/17 07:47 Hgb PT 28.7 H INR 2.6 APTT Potassium EKG Reviewed by me: Yes (Tele - SR) Phys Exam - Physical Examination Constitutional: NAD HEENT: PERRLA, moist MMs, sclera anicteric, oral pharynx no lesions Neck: no nodes, no JVD, supple, full ROM Respiratory: no wheezing, no rales, no rhonchi, clear to auscultation bilateral Cardiovascular: RRR, no significant murmur, no rub, gallop Gastrointestinal: soft, non-tender, no distention, positive bowel sounds Musculoskeletal: no edema, pulses present LLE weakness> RLE Neurological: moves all 4 limbs Psychiatric: normal affect, A&O x 3 Skin: no rash, normal turgor, cap refill <2 seconds Dx/Plan (1) DVT, bilateral lower limbs Code(s): I82.403 - ACUTE EMBOLISM AND THOMBOS UNSP DEEP VEINS OF LOW EXTRM, BI Status: Acute Comment: on Coumadin with therapeutic INR, d/c daily INR checks, decrease Coumadin 4mg daily (2) Pulmonary embolism Code(s): I26.99 - OTHER PULMONARY EMBOLISM WITHOUT ACUTE COR PULMONALE Status : Acute Qualifiers: Chronicity: acute Comment: multiple emboli noted on CTA, continue Coumadin but d/c daily INR checks (3) SAH (subarachnoid hemorrhage) Code(s): I60.9 - NONTRAUMATIC SUBARACHNOID HEMORRHAGE, UNSPECIFIED Status: Acute Comment: s/p EVD per NS.s/p coiling PCOM region aneurysm, s/p 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 07/19/17, stable region in R parietal region by CT imaging 07/31/17 (4) Seizure as late effect of cerebrovascular accident (CVA) Code(s): I69.398 - OTHER SEQUELAE OF CEREBRAL INFARCTION; R56.9 - UNSPECIFIED CONVULSIONS Status: Acute Comment: Continue Keppra 750mg BID (5) Dysphagia Code(s): R13.10 - DYSPHAGIA, UNSPECIFIED Status: Acute Qualifiers: Dysphagia type: oropharyngeal phase Qualified Code(s): R13.12 - Dysphagia, oropharyngeal phase Comment: Converted back to po intake and tolerating mech soft diet (6) Sinus tachycardia Code(s): R00.0 - TACHYCARDIA, UNSPECIFIED Status: Acute Comment: Etiology unclear, suspect neuro-mediated, continue to monitor, consider low-dose Coreg - Plan PT/OT, social sciences research scientist, speech therapy, out of bed/ambulate, DVT proph w/SCDs Stable overall -: Continue PT/OT -: CM assisting with HH options -: Continue Coumadin 4mg po daily -: Continue Keppra 750mg BID, likely decrease to 500mg BID for home * AM lab: PT/INR
[2017-08-04 04:49] LABS: INR-International Normal Ratio 2.7
[2017-08-04] MEDS: Nicotine 14 MG PATCH TOP SCH (09:15)
[2017-08-04] MEDS: Saccharomyces boulardii 250 MG CAP PO SCH ×2 (09:16→20:50)
[2017-08-04] MEDS: levETIRAcetam 500 MG TAB PO SCH ×2 (09:16→20:49)
[2017-08-04] MEDS: hydrALAZINE 25 MG TAB PO SCH ×3 (09:16→20:50)
[2017-08-04] MEDS: Amlodipine 5 MG TAB PO SCH (09:17)
[2017-08-04] MEDS: Aquaphor 30 GM 99 GM, Cholestyramine/Aspartame 4 GM TOP SCH ×2 (11:14→20:51)
--- NOTE | 2017-08-04 11:15 | PDOC.PN ---
- Subjective Encounter Start Date: 08/04/17 Encounter Start Time: 07:20 Pt seen for followup re: physical deconditioning. Denies chest pain, shortness of breath, fevers or chills. - Objective MAR Reviewed: Yes Vital Signs & Weight: Vital Signs (12 hours) Temp Pulse Pulse Pulse Resp BP BP 08/04/17 09:21 113 H 111 H 122/79 08/04/17 09:17 108 H 104/73 08/04/17 09:16 108 H 104/73 08/04/17 08:00 98.3 F 108 H 18 08/04/17 07:35 98.3 F 108 H 18 08/04/17 03:48 98.1 F 121 H 16 08/04/17 00:26 98.5 F 111 H 16 BP BP Pulse Ox 08/04/17 09:21 113/77 08/04/17 09:17 08/04/17 09:16 08/04/17 08:00 08/04/17 07:35 104/73 98 08/04/17 03:48 106/68 98 08/04/17 00:26 117/79 99 Weight Admit Weight 234 lb 2.095 oz Weight 186 lb 4.8 oz Most Recent Monitor Data Heart Rate from ECG 110 NIBP 140/96 NIBP BP-Mean 119 Respiration from ECG 13 SpO2 100 I&O: 08/03/17 08/04/17 08/05/17 06:59 06:59 06:59 Intake Total 1240 820 Balance 1240 820 Result Diagrams: 08/02/17 04:45 07/29/17 04:45 Additional Labs: Labs reviewed by me Phys Exam - Physical Examination Obese HEENT: moist MMs Neck: supple Respiratory: clear to auscultation bilateral Cardiovascular: RRR Gastrointestinal: soft Neurological: moves all 4 limbs Dx/Plan (1) Physical deconditioning Code(s): R53.81 - OTHER MALAISE Status: Acute Comment: SNU vs HH (2) DVT, bilateral lower limbs Code(s): I82.403 - ACUTE EMBOLISM AND THOMBOS UNSP DEEP VEINS OF LOW EXTRM, BI Status: Acute Comment: continue coumadin (3) Pulmonary embolism Code(s): I26.99 - OTHER PULMONARY EMBOLISM WITHOUT ACUTE COR PULMONALE Status : Acute Qualifiers: Chronicity: acute Comment: continue coumadin (4) SAH (subarachnoid hemorrhage) Code(s): I60.9 - NONTRAUMATIC SUBARACHNOID HEMORRHAGE, UNSPECIFIED Status: Acute Comment: s/p EVD per NS.s/p coiling PCOM region aneurysm, s/p ventriculostomy with 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 Review of Systems - Review of Systems Respiratory: negative: Cough, Shortness of Breath, SOB with Excertion, Pleuritic Pain, Wheezing Cardiovascular: negative: chest pain, palpitations, orthopnea, paroxysmal nocturnal dyspnea, edema, light headedness - Medications/Allergies Allergies/Adverse Reactions: Allergies Allergy/AdvReac Type Severity Reaction Status Date / Time ibuprofen Allergy Verified 07/02/17 09:00 Medications: Current Medications Acetaminophen (Tylenol) 650 mg PER TUBE Q4H PRN PRN Reason: Fever Last Admin: 08/01/17 18:54 Dose: 650 mg Albuterol/Ipratropium (Duoneb) 3 ml NEB [id number] PRN PRN Reason: SOB &/or Wheezing Amlodipine Besylate (Norvasc) 5 mg PO DAILY [facility] Last Admin: 08/04/17 09:17 Dose: Not Given Mineral Oil/White Petrolatum 99 gm/ Cholestyramine Resin 4 gm 0 gm TOP BID [place] Last Admin: 08/03/17 21:32 Dose: 1 top Mineral Oil/White Petrolatum 99 gm/ Cholestyramine Resin 4 gm 0 gm TOP PRN PRN PRN Reason: WOUND CARE Last Admin: 08/01/17 22:53 Dose: 1 top Diphenhydramine HCl (Benadryl) 50 mg IVP Q6H PRN PRN Reason: Itching Last Admin: 07/02/17 01:43 Dose: 50 mg Diphenhydramine HCl (Benadryl) 50 mg PER TUBE Q6H PRN PRN Reason: Itching & Insomnia Last Admin: 08/03/17 21:35 Dose: 50 mg Hydralazine HCl (Apresoline) 20 mg SLOW IVP Q4H PRN PRN Reason: Hypertension Last Admin: 06/26/17 13:37 Dose: 20 mg Hydralazine HCl (Apresoline) 50 mg PO TID [facility] Last Admin: 08/04/17 09:16 Dose: Not Given Labetalol HCl (Normodyne) 10 mg SLOW IVP Q10MIN PRN PRN Reason: SBP > 140, HR > 70 Last Admin: 07/24/17 22:29 Dose: 10 mg Lactulose (Lactulose) 30 gm PER TUBE TIDPRN PRN PRN Reason: . Last Admin: 08/02/17 07:57 Dose: 30 gm Levetiracetam (Keppra) 750 mg PO BID [facility] Last Admin: 08/04/17 09:16 Dose: 750 mg Miscellaneous Medication (Pharmacy To Dose) 1 each PO PRN PRN PRN Reason: Pharmacy to dose Nicotine (Nicoderm Patch) 14 mg TOP DAILY [facility] Last Admin: 08/04/17 09:15 Dose: 14 mg Ondansetron HCl (Zofran) 4 mg SLOW IVP Q4H PRN PRN Reason: Nausea/Vomiting Pantoprazole Sodium (Protonix) 40 mg PO DAILY [facility] Last Admin: 08/04/17 09:18 Dose: 40 mg Potassium Chloride (Klor-Con) 40 meq PER TUBE [facility] Last Admin: 08/04/17 09:15 Dose: 40 meq Promethazine HCl (Phenergan) 25 mg IM Q4H PRN PRN Reason: Nausea/Vomiting Last Admin: 07/18/17 20:31 Dose: 25 mg Saccharomyces Boulardii (Florastor) 250 mg PO BID [facility] Last Admin: 08/04/17 09:16 Dose: 250 mg Sodium Chloride (Flush - Normal Saline) 10 ml IVF Q12HR [facility] Last Admin: 08/03/17 21:31 Dose: Not Given Sodium Chloride (Flush - Normal Saline) 10 ml IVF PRN PRN PRN Reason: Saline Flush Last Admin: 07/24/17 11:05 Dose: 10 ml Warfarin Sodium (Coumadin) 4 mg PO 1700 [facility] Last Admin: 08/03/17 17:55 Dose: 4 mg
[2017-08-04] MEDS: Warfarin Sodium 2 MG TAB PO SCH (16:59)
[2017-08-05 04:49] LABS: INR-International Normal Ratio 2.7; Prothrombin Time 29.5 SEC (12.0-14.7)
[2017-08-05] MEDS: Saccharomyces boulardii 250 MG CAP PO SCH ×2 (08:11→21:36)
[2017-08-05] MEDS: levETIRAcetam 500 MG TAB PO SCH ×2 (08:11→21:37)
[2017-08-05] MEDS: hydrALAZINE 25 MG TAB PO SCH ×3 (08:12→21:46)
[2017-08-05] MEDS: Amlodipine 5 MG TAB PO SCH (08:13)
[2017-08-05] MEDS: Nicotine 14 MG PATCH TOP SCH (08:14)
[2017-08-05] MEDS: Aquaphor 30 GM 99 GM, Cholestyramine/Aspartame 4 GM TOP SCH ×3 (08:14→21:38)
[2017-08-05] MEDS: Warfarin Sodium 2 MG TAB PO SCH (15:55)
[2017-08-05] MEDS: diphenhydrAMINE 50 MG CAP PER TUBE PRN (23:31)
--- NOTE | 2017-08-06 01:50 | PDOC.PN ---
- Subjective Encounter Start Date: 08/05/17 Encounter Start Time: 19:25 Subjective: f/u for SAH s/p ventriculostomy with coiling aneurysm of PCOM. DVT/ PE's -: on Coumadin. - Objective MAR Reviewed: Yes Vital Signs & Weight: Vital Signs (12 hours) Temp Pulse Resp BP BP Pulse Ox 08/06/17 00:00 111/75 08/05/17 21:46 99 121/71 08/05/17 19:51 97.8 F 99 18 121/71 97 08/05/17 15:46 98.5 F 112 H 16 114/83 96 08/05/17 14:54 108 H 122/85 Weight Admit Weight 234 lb 2.095 oz Weight 190 lb 9.6 oz Most Recent Monitor Data Heart Rate from ECG 110 NIBP 140/96 NIBP BP-Mean 119 Respiration from ECG 13 SpO2 100 I&O: 08/04/17 08/05/17 08/06/17 06:59 06:59 06:59 Intake Total 820 1280 1200 Balance 820 1280 1200 Result Diagrams: 08/02/17 04:45 07/29/17 04:45 Additional Labs: Laboratory Tests 07/08/17 07/09/17 07/09/17 08:41 04:39 16:05 Hgb PT INR APTT 69.9 H 68.6 H 84.7 H Potassium 07/09/17 07/10/17 07/10/17 23:23 05:22 11:47 Hgb PT INR APTT 61.1 H 63.5 H 63.4 H Potassium 07/12/17 07/12/17 07/12/17 05:56 05:56 18:20 Hgb 10.3 L 9.4 L PT INR APTT Potassium 5.5 H 08/03/17 08/05/17 07:47 04:14 Hgb PT 28.7 H 29.5 H INR 2.6 2.7 APTT Potassium Phys Exam - Physical Examination Constitutional: NAD HEENT: PERRLA, moist MMs, sclera anicteric, oral pharynx no lesions Neck: no nodes, no JVD, supple, full ROM Respiratory: no wheezing, no rales, no rhonchi, clear to auscultation bilateral Cardiovascular: RRR, no significant murmur, no rub, gallop Gastrointestinal: soft, non-tender, no distention, positive bowel sounds Musculoskeletal: no edema, pulses present LLE weakness> RLE Neurological: moves all 4 limbs Psychiatric: normal affect, A&O x 3 Skin: no rash, normal turgor, cap refill <2 seconds Dx/Plan (1) DVT, bilateral lower limbs Code(s): I82.403 - ACUTE EMBOLISM AND THOMBOS UNSP DEEP VEINS OF LOW EXTRM, BI Status: Acute Comment: Coumadin therapeutic with INR 2.7 (2) Pulmonary embolism Code(s): I26.99 - OTHER PULMONARY EMBOLISM WITHOUT ACUTE COR PULMONALE Status : Acute Qualifiers: Chronicity: acute Comment: Multiple emboli on CTA, Coumadin 4mg daily (3) SAH (subarachnoid hemorrhage) Code(s): I60.9 - NONTRAUMATIC SUBARACHNOID HEMORRHAGE, UNSPECIFIED Status: Acute Comment: s/p EVD per NS.s/p coiling PCOM region aneurysm, s/p ventriculostomy with EVD 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 OPERATOR shunt done 07/19/17, stable region in R parietal region by CT imaging 07/31/17 (4) Seizure as late effect of cerebrovascular accident (CVA) Code(s): I69.398 - OTHER SEQUELAE OF CEREBRAL INFARCTION; R56.9 - UNSPECIFIED CONVULSIONS Status: Acute Comment: Continue Keppra 750mg BID (5) Dysphagia Code(s): R13.10 - DYSPHAGIA, UNSPECIFIED Status: Acute Qualifiers: Dysphagia type: oropharyngeal phase Qualified Code(s): R13.12 - Dysphagia, oropharyngeal phase Comment: Converted back to po intake and tolerating [facility] soft diet (6) Sinus tachycardia Code(s): R00.0 - TACHYCARDIA, UNSPECIFIED Status: Acute Comment: Etiology unclear, suspect neuro-mediated, continue to monitor, consider low-dose Coreg - Plan PT/OT, geriatric social work professor, speech therapy, out of bed/ambulate, DVT proph w/SCDs Stable overall -: Continue PT/OT for mobilization and ROM -: LLE knee immobilizer for stability -: CM assisting with placement options -: Decrease Keppra 500mg BID in 24h * .
[2017-08-06 05:21] LABS: INR-International Normal Ratio 2.8; Prothrombin Time 30.4 SEC (12.0-14.7)
[2017-08-06] MEDS: Saccharomyces boulardii 250 MG CAP PO SCH ×2 (09:06→21:41)
[2017-08-06] MEDS: Amlodipine 5 MG TAB PO SCH (09:06)
[2017-08-06] MEDS: Nicotine 14 MG PATCH TOP SCH (09:06)
[2017-08-06] MEDS: hydrALAZINE 25 MG TAB PO SCH ×3 (09:06→21:41)
[2017-08-06] MEDS: levETIRAcetam 500 MG TAB PO SCH ×2 (09:06→21:41)
[2017-08-06] MEDS: Aquaphor 30 GM 99 GM, Cholestyramine/Aspartame 4 GM TOP SCH ×2 (09:07→21:42)
[2017-08-06] MEDS: Warfarin Sodium 3 MG TAB PO SCH (16:38)
--- NOTE | 2017-08-06 20:17 | PDOC.PN ---
- Subjective Encounter Start Date: 08/06/17 Encounter Start Time: 19:05 Subjective: f/u for SAH s/p ventriculostomy. Hospital day #53. Working with PT/ OT. -: Appetite good. Some LLE weakness using knee immobilizer for stability but -: not meeting PT goals. - Objective MAR Reviewed: Yes Vital Signs & Weight: Vital Signs (12 hours) Temp Pulse Resp BP BP Pulse Ox 08/06/17 20:00 98.9 F 115 H 16 112/74 97 08/06/17 15:48 98.4 F 112 H 16 112/73 99 08/06/17 14:48 120 H 106/67 08/06/17 11:46 97.7 F 107 H 16 113/72 99 08/06/17 09:06 106 H 129/89 Weight Admit Weight 234 lb 2.095 oz Weight 189 lb Most Recent Monitor Data Heart Rate from ECG 110 NIBP 140/96 NIBP BP-Mean 119 Respiration from ECG 13 SpO2 100 I&O: 08/05/17 08/06/17 08/07/17 06:59 06:59 06:59 Intake Total 1280 1680 500 Balance 1280 1680 500 Result Diagrams: 08/02/17 04:45 07/29/17 04:45 Phys Exam - Physical Examination Constitutional: NAD HEENT: PERRLA, moist MMs, sclera anicteric, oral pharynx no lesions Neck: no nodes, no JVD, supple, full ROM Respiratory: no wheezing, no rales, no rhonchi, clear to auscultation bilateral tachycardic S1, S2 Cardiovascular: no significant murmur, no rub, gallop PEG in place Gastrointestinal: soft, non-tender, no distention, positive bowel sounds Musculoskeletal: no edema, pulses present LLE weakness Neurological: normal sensation, moves all 4 limbs Psychiatric: normal affect, A&O x 3 Skin: no rash, normal turgor, cap refill <2 seconds Dx/Plan (1) DVT, bilateral lower limbs Code(s): I82.403 - ACUTE EMBOLISM AND THOMBOS UNSP DEEP VEINS OF LOW EXTRM, BI Status: Acute Comment: Coumadin therapeutic with INR 2.8 (2) Pulmonary embolism Code(s): I26.99 - OTHER PULMONARY EMBOLISM WITHOUT ACUTE COR PULMONALE Status : Acute Qualifiers: Chronicity: acute Comment: Multiple emboli on CTA, Coumadin 4mg daily (3) SAH (subarachnoid hemorrhage) Code(s): I60.9 - NONTRAUMATIC SUBARACHNOID HEMORRHAGE, UNSPECIFIED Status: Acute Comment: s/p EVD per NS.s/p coiling PCOM region aneurysm, s/p ventriculostomy 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 07/19/17, stable region in R parietal region by CT imaging 07/31/17 (4) Seizure as late effect of cerebrovascular accident (CVA) Code(s): I69.398 - OTHER SEQUELAE OF CEREBRAL INFARCTION; R56.9 - UNSPECIFIED CONVULSIONS Status: Acute Comment: Continue Keppra 750mg BID (5) Dysphagia Code(s): R13.10 - DYSPHAGIA, UNSPECIFIED Status: Acute Qualifiers: Dysphagia type: oropharyngeal phase Qualified Code(s): R13.12 - Dysphagia, oropharyngeal phase Comment: Converted back to po intake and tolerating mech soft diet (6) Sinus tachycardia Code(s): R00.0 - TACHYCARDIA, UNSPECIFIED Status: Acute Comment: Etiology unclear, suspect neuro-mediated, continue to monitor, start Coreg 3.125mg BID, decrease Hydralazine 25mg TID - Plan PT/OT, social group worker, respiratory therapy, out of bed/ambulate, DVT proph w/ SCDs Stable overall -: continue Stroke protocol -: PT/OT for functional movement, ROM, standing with RW -: Start Coreg 3.125mg BID -: Decrease Hydralazine 25mg TID * Placement options
[2017-08-06] MEDS: diphenhydrAMINE 50 MG CAP PER TUBE PRN (21:41)
[2017-08-07 05:44] LABS: INR-International Normal Ratio 2.7; Prothrombin Time 29.9 SEC (12.0-14.7)
[2017-08-07] MEDS: levETIRAcetam 500 MG TAB PO SCH ×2 (09:54→21:45)
[2017-08-07] MEDS: Saccharomyces boulardii 250 MG CAP PO SCH ×2 (09:54→21:45)
[2017-08-07] MEDS: hydrALAZINE 25 MG TAB PO SCH ×3 (09:54→21:45)
[2017-08-07] MEDS: Amlodipine 5 MG TAB PO SCH (09:55)
[2017-08-07] MEDS: Carvedilol 3.125 MG TAB PO SCH ×2 (09:55→16:14)
[2017-08-07] MEDS: Nicotine 14 MG PATCH TOP SCH (09:55)
[2017-08-07] MEDS: Aquaphor 30 GM 99 GM, Cholestyramine/Aspartame 4 GM TOP SCH ×2 (10:06→21:52)
[2017-08-07] MEDS: Warfarin Sodium 3 MG TAB PO SCH (16:19)
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
[2017-08-08 05:02] LABS: INR-International Normal Ratio 2.6; Prothrombin Time 28.7 SEC (12.0-14.7)
[2017-08-08] MEDS: Nicotine 14 MG PATCH TOP SCH (08:04)
[2017-08-08] MEDS: Saccharomyces boulardii 250 MG CAP PO SCH ×2 (08:04→22:52)
[2017-08-08] MEDS: Carvedilol 3.125 MG TAB PO SCH ×2 (08:04→17:11)
[2017-08-08] MEDS: levETIRAcetam 500 MG TAB PO SCH ×2 (08:04→22:54)
[2017-08-08] MEDS: hydrALAZINE 25 MG TAB PO SCH ×3 (10:11→22:55)
[2017-08-08] MEDS: Amlodipine 5 MG TAB PO SCH (10:44)
[2017-08-08] MEDS: Aquaphor 30 GM 99 GM, Cholestyramine/Aspartame 4 GM TOP SCH ×2 (10:45→22:55)
[2017-08-08] MEDS ORDERED: Lidocaine 1% (PF) 30 ML VIAL ONE (14:50)
[2017-08-08] MEDS: Warfarin Sodium 3 MG TAB PO SCH (17:11)
--- NOTE | 2017-08-08 17:44 | CON ---
DATE OF CONSULTATION: 08/08/2017 REASON FOR CONSULTATION: Consultation was requested for penile edema. HISTORY OF PRESENT ILLNESS: The patient is a 47-year-old male who was admitted on 06/14/2017 with a subarachnoid hemorrhage and a significant stroke. During this hospital stay, he had a right ventriculostomy then he had a CAREER COACH shunt on the and 20 of July. He had a PEG tube on 07/20/2017. He has also developed bilateral DVTs and pulmonary emboli. There had been concern about penile edema for quite some time and an ultrasound of the penis and testicles was done on 07/22/2017. However, I was not consulted until today, the . The nurse reports that actually it looks better than it did previously and patient did not seem to be bothered or significantly concerned about it. In talking with the patient, he denies any concern with urination, does not to push or strain and he was feeling empty. Initially, he states his mother told him he had it circumcised; however, in description, he does report that the skin hung below the glans prior to admission to the hospital and he would retract it to clean. PAST MEDICAL HISTORY: Significant for hypertension, is noncompliant with meds prior to his hospitalization. PAST SURGICAL HISTORY: He has had no past surgical history. MEDICATIONS: None as an outpatient. ALLERGIES: IBUPROFEN. SOCIAL HISTORY: He denies any drug use; however, there is a test that was positive for marijuana. 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 REVIEW OF SYSTEMS: Reveals he has never had a colonoscopy. He is not aware of being screened for prostate cancer with a PSA nor finger exam. He has no chest pain, shortness of breath or cough. His bowels have been regular and he had one earlier today. FAMILY HISTORY: Noncontributory. PHYSICAL EXAMINATION: GENERAL: He is initially very much asleep in the bed and did not respond or open his eyes even to painful stimulus of the fingers or initial sternal rub then slowly, his eyes flooded and he awakened from a deep sleep and was appropriate for the rest of the exam. He is alert and appropriate after seeming a bit dazed and confused initially. VITAL SIGNS: He has been afebrile 98.9, heart rate has been borderline tachycardic in the low 100s, respiratory rate of 16, blood pressure 105/68. There is one list of the Ta for 150, but otherwise his urines are listed as diapers and he is satting 97% on room air. HEENT: He had no JVD. He had no scleral icterus. He had no skin issues other than the penile concerns. HEART: Regular rate, borderline tachycardia without murmurs, gallops, or rubs. LUNGS: Clear to auscultation bilaterally. ABDOMEN: Soft, nondistended, nontender with a PEG tube in place and normoactive bowel sounds. GENITOURINARY: Testes were descended bilaterally without masses. Phallus appeared edematous distal to the prepuce which was on the distal portion of the phallus and already cracked with an open sore consistent with an auto dorsal slit. The glans itself was not significantly edematous and this is a portion that the nurse felt previously was worse. He had no significant lower extremity edema. LABORATORY DATA: From the shows CBC with mild anemia at 12.0 and 36.5. More recent INR was 2.6 with a PT of 28.7. Chemistries from the showed a BUN and creatinine of 10 and 0.60. Urinalysis from the showed 7-10 wbc's, 4-6 rbc's, no bacteria, 11-12 squamous cells with 30 protein. Urinalysis from the showed 0-3 wbc's, 0-3 rbc's, no bacteria. No skin cells. Urinalysis from 06/14/2017 revealed 7-10 wbc's, 4-6 rbc's, rare bacteria, 4-6 squamous cells, 100 glucose, 300 protein. Scrotal ultrasound from 07/22/2017 reviewed personally which included the penis showed bilateral hydroceles, which are small with normal testes and no masses. Increased vascularity to the distal shaft and may reflect a skin infection. Procedure: I held pressure around the edematous portions of the distal penis and glans and with significant manipulation, was unable to reduce it without significant pain to the patient. So at this point I stopped and acquired 10 mL of 1% lidocaine. I performed a penile block at which point I further held the distal edematous tissues, squeezed the edema out as best I could, and then reduced the paraphimosis leaving a significantly edematous and slightly oozing portion of the skin that had already cracked. It did not appear that I made a larger laceration--just irritated the current existing one. You could still see the tip of the glans through the edematous prepuce. The patient tolerated the procedure well after the block. ASSESSMENT AND PLAN: We have a 47-year-old male admitted with a subarachnoid hemorrhage. He was somewhere along the lines, had paraphimosis which was not recognized or reduced appropriately and the prepuce was strangulating the distal shaft and glans creating significant edema to the point where the prepuce started to crack and open. The paraphimosis is now reduced, he ultimately needs a circumcision when it is safe to hold his anticoagulation. For now, do not retract the foreskin to try to clean and just clean in its current state. Over the next 12-24 hours, expect that the edema will worsen, but it should not impede his outflow from a urinary standpoint. His microhematuria is not concerning based on the fact that he likely had paraphimosis during the time of these examinations, and I would just follow up and ensure resolution. He has never been screened for prostate cancer; at some point it may be worth checking a PSA. I doubt that routine screening will be indicated. PETER
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
[2017-08-09 06:10] LABS: INR-International Normal Ratio 2.3; Prothrombin Time 26.4 SEC (12.0-14.7)
[2017-08-09] MEDS: Aquaphor 30 GM 99 GM, Cholestyramine/Aspartame 4 GM TOP SCH ×2 (07:32→20:56)
--- NOTE | 2017-08-09 08:47 | PRG ---
DATE OF SERVICE: 08/09/2017 SUBJECTIVE: The patient has done well overnight. He denies any concern about urination, and he is not sure whether the swelling is better or worse. He has not been bothered by it. PHYSICAL EXAMINATION: VITAL SIGNS: He has been afebrile with vital signs stable. His heart rate is actually down a little bit to 90, and blood pressure is stable. : The penis is pointed downward in the depends so I angled it back up against the suprapubic area. Swelling is actually less than immediately afterwards yesterday. There is still a significant amount of edema in the prepuce portion of the foreskin. There is no bleeding. ASSESSMENT: We have a 47-year-old male with paraphimosis that resulted in cracking of the foreskin (almost auto dorsal slit) that has now been reduced. PLAN: Foreskin should not be attempted to be retracted again at this time, but otherwise cleaned as best as possible. The penis should be elevated/pointed up until all swelling has resolved. Ultimately he deserves a circumcision when anticoagulants can be held. I reviewed this with him and answered all questions. He can follow up with me as an outpatient. PETER
[2017-08-09] MEDS: levETIRAcetam 500 MG TAB PO SCH ×2 (09:00→21:12)
[2017-08-09] MEDS: Amlodipine 5 MG TAB PO SCH (09:00)
[2017-08-09] MEDS: hydrALAZINE 25 MG TAB PO SCH ×3 (09:00→21:11)
[2017-08-09] MEDS: Saccharomyces boulardii 250 MG CAP PO SCH ×2 (09:00→21:11)
[2017-08-09] MEDS: Carvedilol 3.125 MG TAB PO SCH ×2 (09:01→16:18)
[2017-08-09] MEDS: Nicotine 14 MG PATCH TOP SCH (09:01)
[2017-08-09 11:09] LABS: Anion Gap 11 mmol/L (10-20); BUN (Urea Nitrogen) 12 mg/dL (8.9-20.6); Calc. Creatinine Clearance 160 mL/min (70-130); Calcium 9.8 mg/dL (7.8-10.44); Carbon Dioxide 22 mmol/L (22-29); Chloride 106 mmol/L (98-107); Estimated GFR-MDRD Greater than 90; Glucose 74 mg/dL (70-105); Potassium 3.9 mmol/L (3.5-5.1); Sodium 135 mmol/L (136-145)
[2017-08-09 14:16] VITALS: BMI 31.8
--- NOTE | 2017-08-09 16:17 | PDOC.PN ---
- Subjective Encounter Start Date: 08/09/17 Encounter Start Time: 16:15 patient feeling well. he stated he could probably go home with family. he does not like his PEG tube as it is uncomfortable. no chest pain, SOB, nausea or vomiting - Objective MAR Reviewed: Yes Vital Signs & Weight: Vital Signs (12 hours) Temp Pulse Pulse Pulse Resp BP BP 08/09/17 15:35 98.4 F 97 12 08/09/17 11:35 98.8 F 91 12 08/09/17 09:00 90 126/80 08/09/17 08:38 94 102 H 126/80 08/09/17 08:00 98.6 F 90 12 08/09/17 07:06 98.6 F 90 12 BP BP Pulse Ox 08/09/17 15:35 116/81 98 08/09/17 11:35 107/65 97 08/09/17 09:00 08/09/17 08:38 129/88 08/09/17 08:00 08/09/17 07:06 116/80 99 Weight Admit Weight 234 lb 2.095 oz Weight 185 lb 3.2 oz Most Recent Monitor Data Heart Rate from ECG 110 NIBP 140/96 NIBP BP-Mean 119 Respiration from ECG 13 SpO2 100 I&O: 08/08/17 08/09/17 08/10/17 06:59 06:59 06:59 Intake Total 620 240 580 Output Total 150 Balance 470 240 580 Result Diagrams: 08/02/17 04:45 08/09/17 05:35 Phys Exam - Physical Examination Constitutional: NAD HEENT: PERRLA, moist MMs Neck: no nodes, no JVD, supple Respiratory: no wheezing, no rales, no rhonchi Cardiovascular: RRR, no significant murmur, no rub Gastrointestinal: soft, non-tender, no distention Musculoskeletal: no edema, pulses present Dx/Plan (1) DVT, bilateral lower limbs Code(s): I82.403 - ACUTE EMBOLISM AND THOMBOS UNSP DEEP VEINS OF LOW EXTRM, BI Status: Acute Qualifiers: Chronicity: acute Comment: Coumadin therapeutic with INR 2.3 (2) SAH (subarachnoid hemorrhage) Code(s): I60.9 - NONTRAUMATIC SUBARACHNOID HEMORRHAGE, UNSPECIFIED Status: Acute Comment: s/p EVD per NS.s/p coiling PCOM region aneurysm, s/p ventriculostomy with EVD removal SHIP FITTER shunt done 07/19/17, stable region in R parietal region by CT imaging 07/31/17 (3) Acute renal failure Status: Resolved Comment: resolved. (4) HTN (hypertension) Code(s): I10 - ESSENTIAL (PRIMARY) HYPERTENSION Status: Chronic Qualifiers: Hypertension type: essential hypertension Qualified Code(s): I10 - Essential (primary) hypertension Comment: continue coreg. - Plan cont current plan of care * . -continue coumadin in light of DVT/PE with SAH hx. coumadin therapeutic -continue coreg for HTN -will contact GI to possibly remove PEG as patient is eating adequately. -placement remains difficult issue as family prefers not to take him home but may be willing if SNF refuses. patient is actually willing to go home with family care.
[2017-08-09] MEDS: Warfarin Sodium 3.75 MG HALF.TAB PO SCH (16:19)
[2017-08-10 05:29] LABS: INR-International Normal Ratio 2.3; Prothrombin Time 26.5 SEC (12.0-14.7)
[2017-08-10] MEDS: Nicotine 14 MG PATCH TOP SCH (09:06)
[2017-08-10] MEDS: Amlodipine 5 MG TAB PO SCH (09:06)
[2017-08-10] MEDS: Carvedilol 3.125 MG TAB PO SCH ×2 (09:07→16:31)
[2017-08-10] MEDS: levETIRAcetam 500 MG TAB PO SCH ×2 (09:08→21:16)
[2017-08-10] MEDS: Saccharomyces boulardii 250 MG CAP PO SCH ×2 (09:08→21:16)
[2017-08-10] MEDS: hydrALAZINE 25 MG TAB PO SCH ×3 (09:08→21:16)
[2017-08-10] MEDS: Aquaphor 30 GM 99 GM, Cholestyramine/Aspartame 4 GM TOP SCH ×2 (09:08→21:17)
[2017-08-10] MEDS: Warfarin Sodium 3.75 MG HALF.TAB PO SCH (16:33)
--- NOTE | 2017-08-10 17:18 | PDOC.PN ---
- Subjective Encounter Start Date: 08/10/17 Encounter Start Time: 17:43 patient with no complaints. family willing to come in and do teaching tomorrow. patient hopefully going to go home tomorrow with family. no nausea or vomiting. PEG tube cannot be removed for another few weeks according to GI, no nausea or vomiting. chest pain or SOB - Objective MAR Reviewed: Yes Vital Signs & Weight: Vital Signs (12 hours) Temp Pulse Pulse Pulse Pulse Pulse Pulse 08/10/17 16:30 97 08/10/17 15:43 98.6 F 97 08/10/17 12:35 104 H 08/10/17 11:33 107 H 109 H 98 103 H 113 H 08/10/17 11:29 99.3 F 97 08/10/17 09:08 105 H 08/10/17 09:06 105 H 08/10/17 08:00 98.8 F 105 H 08/10/17 07:30 98.8 F 105 H Pulse Resp BP BP BP BP BP 08/10/17 16:30 121/71 08/10/17 15:43 16 08/10/17 12:35 08/10/17 11:33 99 111/77 118/69 132/85 123/97 H 08/10/17 11:29 16 08/10/17 09:08 111/74 08/10/17 09:06 111/74 08/10/17 08:00 16 08/10/17 07:30 16 BP BP BP Pulse Ox 08/10/17 16:30 08/10/17 15:43 112/79 97 08/10/17 12:35 08/10/17 11:33 123/82 122/78 08/10/17 11:29 115/75 97 08/10/17 09:08 08/10/17 09:06 08/10/17 08:00 08/10/17 07:30 111/74 95 Weight Admit Weight 234 lb 2.095 oz Weight 190 lb Most Recent Monitor Data Heart Rate from ECG 110 NIBP 140/96 NIBP BP-Mean 119 Respiration from ECG 13 SpO2 100 I&O: 08/09/17 08/10/17 08/11/17 06:59 06:59 06:59 Intake Total 240 1810 Balance 240 1810 Result Diagrams: 08/02/17 04:45 08/09/17 05:35 Phys Exam - Physical Examination HEENT: moist MMs, sclera anicteric Neck: no JVD, supple Respiratory: no wheezing, no rales, no rhonchi Cardiovascular: RRR, no significant murmur, no rub Gastrointestinal: soft, non-tender, no distention peg tube in place Dx/Plan (1) DVT, bilateral lower limbs Code(s): I82.403 - ACUTE EMBOLISM AND THOMBOS UNSP DEEP VEINS OF LOW EXTRM, BI Status: Acute Qualifiers: Chronicity: acute Comment: Coumadin therapeutic with INR 2.3 (2) SAH (subarachnoid hemorrhage) Code(s): I60.9 - NONTRAUMATIC SUBARACHNOID HEMORRHAGE, UNSPECIFIED Status: Acute Comment: s/p EVD per NS.s/p coiling PCOM region aneurysm, s/p ventriculostomy with EVD removal 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 (4) HTN (hypertension) Code(s): I10 - ESSENTIAL (PRIMARY) HYPERTENSION Status: Chronic Qualifiers: Hypertension type: essential hypertension Qualified Code(s): I10 - Essential (primary) hypertension Comment: continue coreg. - Plan cont current plan of care * . patients family to come for home teaching tomorrow. cont coumadin and check daily INRs. continue antihypertensives PEG tube cannot be removed for another few weeks. after family teaching done, patient likely can d/c home with family.
[2017-08-11 04:57] LABS: INR-International Normal Ratio 2.1; Prothrombin Time 24.6 SEC (12.0-14.7)
[2017-08-11] MEDS: levETIRAcetam 500 MG TAB PO SCH ×2 (08:30→20:23)
[2017-08-11] MEDS: Amlodipine 5 MG TAB PO SCH (08:30)
[2017-08-11] MEDS: Saccharomyces boulardii 250 MG CAP PO SCH ×2 (08:30→20:22)
[2017-08-11] MEDS: Carvedilol 3.125 MG TAB PO SCH ×2 (08:30→16:07)
[2017-08-11] MEDS: hydrALAZINE 25 MG TAB PO SCH ×3 (08:30→20:23)
[2017-08-11] MEDS: Nicotine 14 MG PATCH TOP SCH (08:32)
[2017-08-11] MEDS: Aquaphor 30 GM 99 GM, Cholestyramine/Aspartame 4 GM TOP SCH ×2 (08:33→20:24)
--- NOTE | 2017-08-11 11:58 | PDOC.PN ---
- Subjective Encounter Start Date: 08/11/17 Encounter Start Time: 11:56 Subjective: alert, oriented, no problems - Objective MAR Reviewed: Yes Vital Signs & Weight: Vital Signs (12 hours) Temp Pulse Pulse Pulse Resp BP BP 08/11/17 10:35 89 110 H 118/79 131/90 08/11/17 08:30 95 08/11/17 07:49 98.8 F 95 16 08/11/17 07:31 98.0 F 97 18 08/11/17 04:00 98.0 F 97 18 08/11/17 00:00 98.3 F 100 18 BP Pulse Ox 08/11/17 10:35 08/11/17 08:30 08/11/17 07:49 121/80 97 08/11/17 07:31 08/11/17 04:00 121/82 100 08/11/17 00:00 127/78 99 Weight Admit Weight 234 lb 2.095 oz Weight 186 lb 6.4 oz Most Recent Monitor Data Heart Rate from ECG 110 NIBP 140/96 NIBP BP-Mean 119 Respiration from ECG 13 SpO2 100 I&O: 08/10/17 08/11/17 08/12/17 06:59 06:59 06:59 Intake Total 1810 1120 Output Total 150 Balance 1810 1120 -150 Result Diagrams: 08/02/17 04:45 08/09/17 05:35 Phys Exam - Physical Examination Neck: no JVD Respiratory: clear to auscultation bilateral Cardiovascular: RRR, no significant murmur Gastrointestinal: soft, non-tender, positive bowel sounds Musculoskeletal: no edema Dx/Plan (1) HTN (hypertension), malignant Code(s): I10 - ESSENTIAL (PRIMARY) HYPERTENSION Status: Chronic Comment: severe (2) Encephalopathy Code(s): G93.40 - ENCEPHALOPATHY, UNSPECIFIED Status: Acute Comment: Improving.Due to ICH (3) NSTEMI (non-ST elevated myocardial infarction) Code(s): I21.4 - NON-ST ELEVATION (NSTEMI) MYOCARDIAL INFARCTION Status: Resolved Comment: conservative management per cardiology (4) SAH (subarachnoid hemorrhage) Code(s): I60.9 - NONTRAUMATIC SUBARACHNOID HEMORRHAGE, UNSPECIFIED Status: Acute Comment: s/p EVD per NS.s/p coiling PCOM region aneurysm, s/p ventriculostomy with EVD removal 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 (6) DVT, bilateral lower limbs Code(s): I82.403 - ACUTE EMBOLISM AND THOMBOS UNSP DEEP VEINS OF LOW EXTRM, BI Status: Acute Qualifiers: Chronicity: acute Comment: Coumadin therapeutic with INR 2.3 (7) Pulmonary embolism Code(s): I26.99 - OTHER PULMONARY EMBOLISM WITHOUT ACUTE COR PULMONALE Status : Acute Qualifiers: Chronicity: acute Comment: Multiple emboli on CTA, Coumadin 3mg daily (8) Seizure as late effect of cerebrovascular accident (CVA) Code(s): I69.398 - OTHER SEQUELAE OF CEREBRAL INFARCTION; R56.9 - UNSPECIFIED CONVULSIONS Status: Acute Comment: Continue Keppra 500mg BID (9) HTN (hypertension) Code(s): I10 - ESSENTIAL (PRIMARY) HYPERTENSION Status: Chronic Qualifiers: Hypertension type: essential hypertension Qualified Code(s): I10 - Essential (primary) hypertension Comment: continue coreg. - Plan cont PT/OT -: cont anticoag -: cont amlodipine, hydralazine -: cont keppra * .
[2017-08-11] MEDS: Warfarin Sodium 2 MG TAB PO SCH (16:07)
[2017-08-11] MEDS: Acetaminophen 325 MG TAB PER TUBE PRN (20:22)
[2017-08-12 04:38] LABS: INR-International Normal Ratio 2.3; Prothrombin Time 25.7 SEC (12.0-14.7)
[2017-08-12] MEDS: Nicotine 14 MG PATCH TOP SCH (09:22)
[2017-08-12] MEDS: Saccharomyces boulardii 250 MG CAP PO SCH ×2 (09:22→20:56)
[2017-08-12] MEDS: levETIRAcetam 500 MG TAB PO SCH ×2 (09:23→20:56)
[2017-08-12] MEDS: Amlodipine 5 MG TAB PO SCH (09:23)
[2017-08-12] MEDS: hydrALAZINE 25 MG TAB PO SCH ×3 (09:23→20:56)
[2017-08-12] MEDS: Carvedilol 3.125 MG TAB PO SCH ×2 (09:24→16:16)
[2017-08-12] MEDS: Aquaphor 30 GM 99 GM, Cholestyramine/Aspartame 4 GM TOP SCH ×2 (09:26→20:57)
--- NOTE | 2017-08-12 15:02 | PDOC.PN ---
- Subjective Encounter Start Date: 08/12/17 Encounter Start Time: 14:59 Subjective: alert, no complaints - Objective MAR Reviewed: Yes Vital Signs & Weight: Vital Signs (12 hours) Temp Pulse Resp BP Pulse Ox 08/12/17 11:46 98.7 F 93 16 107/69 99 08/12/17 09:23 81 08/12/17 08:00 98.9 F 81 18 08/12/17 07:58 98.9 F 81 18 117/81 81 L 08/12/17 04:00 98.9 F 89 16 123/74 100 Weight Admit Weight 234 lb 2.095 oz Weight 187 lb 11.2 oz Most Recent Monitor Data Heart Rate from ECG 110 NIBP 140/96 NIBP BP-Mean 119 Respiration from ECG 13 SpO2 100 I&O: 08/11/17 08/12/17 08/13/17 06:59 06:59 06:59 Intake Total 1120 870 Output Total 700 Balance 1120 170 Result Diagrams: 08/02/17 04:45 08/09/17 05:35 Phys Exam - Physical Examination Neck: no JVD Respiratory: clear to auscultation bilateral Cardiovascular: RRR, no significant murmur, irregular Gastrointestinal: soft, non-tender, positive bowel sounds PEG Musculoskeletal: no edema Dx/Plan (1) HTN (hypertension), malignant Code(s): I10 - ESSENTIAL (PRIMARY) HYPERTENSION Status: Chronic Comment: severe (2) Encephalopathy Code(s): G93.40 - ENCEPHALOPATHY, UNSPECIFIED Status: Acute Comment: Improving.Due to ICH (3) NSTEMI (non-ST elevated myocardial infarction) Code(s): I21.4 - NON-ST ELEVATION (NSTEMI) MYOCARDIAL INFARCTION Status: Resolved Comment: conservative management per cardiology (4) SAH (subarachnoid hemorrhage) Code(s): I60.9 - NONTRAUMATIC SUBARACHNOID HEMORRHAGE, UNSPECIFIED Status: Acute Comment: s/p EVD per NS.s/p coiling PCOM region aneurysm, s/p ventriculostomy with EVD removal 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 (6) DVT, bilateral lower limbs Code(s): I82.403 - ACUTE EMBOLISM AND THOMBOS UNSP DEEP VEINS OF LOW EXTRM, BI Status: Acute Qualifiers: Chronicity: acute Comment: Coumadin therapeutic with INR 2.3 (7) Pulmonary embolism Code(s): I26.99 - OTHER PULMONARY EMBOLISM WITHOUT ACUTE COR PULMONALE Status : Acute Qualifiers: Chronicity: acute Comment: Multiple emboli on CTA, Coumadin 3mg daily (8) Seizure as late effect of cerebrovascular accident (CVA) Code(s): I69.398 - OTHER SEQUELAE OF CEREBRAL INFARCTION; R56.9 - UNSPECIFIED CONVULSIONS Status: Acute Comment: Continue Keppra 500mg BID (9) HTN (hypertension) Code(s): I10 - ESSENTIAL (PRIMARY) HYPERTENSION Status: Chronic Qualifiers: Hypertension type: essential hypertension Qualified Code(s): I10 - Essential (primary) hypertension Comment: continue coreg. - Plan cont present meds, etc. plan is placement 08/14/17 * .
[2017-08-12] MEDS: Warfarin Sodium 2 MG TAB PO SCH (16:17)
[2017-08-13 04:46] LABS: INR-International Normal Ratio 2.3; Prothrombin Time 25.9 SEC (12.0-14.7)
[2017-08-13] MEDS: Carvedilol 3.125 MG TAB PO SCH ×2 (08:57→16:52)
[2017-08-13] MEDS: Amlodipine 5 MG TAB PO SCH (08:57)
[2017-08-13] MEDS: Saccharomyces boulardii 250 MG CAP PO SCH ×2 (08:58→21:33)
[2017-08-13] MEDS: Nicotine 14 MG PATCH TOP SCH (08:58)
[2017-08-13] MEDS: hydrALAZINE 25 MG TAB PO SCH ×3 (08:59→21:34)
[2017-08-13] MEDS: Aquaphor 30 GM 99 GM, Cholestyramine/Aspartame 4 GM TOP SCH (08:59)
[2017-08-13] MEDS: levETIRAcetam 500 MG TAB PO SCH ×2 (09:08→21:34)
--- NOTE | 2017-08-13 09:46 | PDOC.PN ---
- Subjective Encounter Start Date: 08/13/17 Encounter Start Time: 09:44 Subjective: alert, no complaints - Objective MAR Reviewed: Yes Vital Signs & Weight: Vital Signs (12 hours) Temp Pulse Resp BP BP Pulse Ox 08/13/17 08:59 94 08/13/17 08:57 94 124/89 08/13/17 08:00 97.8 F 94 16 08/13/17 07:56 97.8 F 94 16 124/89 98 08/13/17 05:30 98.7 F 90 18 105/58 L Weight Admit Weight 234 lb 2.095 oz Weight 185 lb 3 oz Most Recent Monitor Data Heart Rate from ECG 110 NIBP 140/96 NIBP BP-Mean 119 Respiration from ECG 13 SpO2 100 I&O: 08/12/17 08/13/17 08/14/17 06:59 06:59 06:59 Intake Total 870 720 240 Output Total 700 400 Balance 170 720 -160 Result Diagrams: 08/02/17 04:45 08/09/17 05:35 Phys Exam - Physical Examination Neck: no JVD Respiratory: clear to auscultation bilateral Cardiovascular: RRR, no significant murmur Gastrointestinal: soft, non-tender, positive bowel sounds PEG Musculoskeletal: no edema Dx/Plan (1) HTN (hypertension), malignant Code(s): I10 - ESSENTIAL (PRIMARY) HYPERTENSION Status: Chronic Comment: severe (2) Encephalopathy Code(s): G93.40 - ENCEPHALOPATHY, UNSPECIFIED Status: Acute Comment: Improving.Due to ICH (3) NSTEMI (non-ST elevated myocardial infarction) Code(s): I21.4 - NON-ST ELEVATION (NSTEMI) MYOCARDIAL INFARCTION Status: Resolved Comment: conservative management per cardiology (4) SAH (subarachnoid hemorrhage) Code(s): I60.9 - NONTRAUMATIC SUBARACHNOID HEMORRHAGE, UNSPECIFIED Status: Acute Comment: s/p EVD per NS.s/p coiling PCOM region aneurysm, s/p ventriculostomy with EVD removal JEWELRY SETTER shunt done 07/19/17, stable region in R parietal region by CT imaging 07/31/17 (5) Acute renal failure Status: Resolved Comment: resolved. (6) DVT, bilateral lower limbs Code(s): I82.403 - ACUTE EMBOLISM AND THOMBOS UNSP DEEP VEINS OF LOW EXTRM, BI Status: Acute Qualifiers: Chronicity: acute Comment: Coumadin therapeutic with INR 2.3 (7) Pulmonary embolism Code(s): I26.99 - OTHER PULMONARY EMBOLISM WITHOUT ACUTE COR PULMONALE Status : Acute Qualifiers: Chronicity: acute Comment: Multiple emboli on CTA, Coumadin 3mg daily (8) Seizure as late effect of cerebrovascular accident (CVA) Code(s): I69.398 - OTHER SEQUELAE OF CEREBRAL INFARCTION; R56.9 - UNSPECIFIED CONVULSIONS Status: Acute Comment: Continue Keppra 500mg BID (9) HTN (hypertension) Code(s): I10 - ESSENTIAL (PRIMARY) HYPERTENSION Status: Chronic Qualifiers: Hypertension type: essential hypertension Qualified Code(s): I10 - Essential (primary) hypertension Comment: continue coreg. - Plan PT/INR stable in 2.5 +/- range -: cont warfarin, PT/OT -: cont amlodipine/coreg -: cont keppra for seizures -: to be evaluated for placement again tomorrow * .
[2017-08-13] MEDS: Warfarin Sodium 2 MG TAB PO SCH (16:53)
[2017-08-14] MEDS: diphenhydrAMINE 50 MG CAP PER TUBE PRN (03:07)
[2017-08-14] MEDS: Aquaphor 30 GM 99 GM, Cholestyramine/Aspartame 4 GM TOP SCH ×2 (03:08→10:06)
[2017-08-14 05:12] LABS: INR-International Normal Ratio 2.2; Prothrombin Time 25.5 SEC (12.0-14.7)
[2017-08-14 08:06] VITALS: TEMP 98.4
[2017-08-14] MEDS ORDERED: Potassium Chloride 20 MEQ TAB PO SCH (09:00)
[2017-08-14] MEDS: Carvedilol 3.125 MG TAB PO SCH (09:28)
[2017-08-14] MEDS: hydrALAZINE 25 MG TAB PO SCH (09:28)
[2017-08-14] MEDS: Saccharomyces boulardii 250 MG CAP PO SCH (09:29)
[2017-08-14] MEDS: Amlodipine 5 MG TAB PO SCH (09:29)
[2017-08-14] MEDS: levETIRAcetam 500 MG TAB PO SCH (09:29)
[2017-08-14] MEDS: Nicotine 14 MG PATCH TOP SCH (09:30)
--- NOTE | 2017-08-14 09:59 | PDOC.PN ---
- Subjective Encounter Start Date: 08/14/17 Encounter Start Time: 07:40 -: old records requested/rev Patient seen and examined for hypertension. No new complaints. No overnight events - Objective MAR Reviewed: Yes Vital Signs & Weight: Vital Signs (12 hours) Temp Pulse Resp BP BP Pulse Ox 08/14/17 09:29 86 08/14/17 09:28 86 08/14/17 08:00 98.4 F 86 16 111/79 97 08/14/17 04:00 98.3 F 91 16 120/82 97 Weight Admit Weight 234 lb 2.095 oz Weight 186 lb 4 oz Most Recent Monitor Data Heart Rate from ECG 110 NIBP 140/96 NIBP BP-Mean 119 Respiration from ECG 13 SpO2 100 I&O: 08/13/17 08/14/17 08/15/17 06:59 06:59 06:59 Intake Total 720 940 Output Total 900 Balance 720 40 Result Diagrams: 08/02/17 04:45 08/09/17 05:35 Phys Exam - Physical Examination Constitutional: NAD HEENT: PERRLA, moist MMs, sclera anicteric Neck: no JVD, supple Respiratory: no wheezing, no rales, no rhonchi Cardiovascular: RRR, no significant murmur, no rub Gastrointestinal: soft, non-tender, no distention, positive bowel sounds Musculoskeletal: no edema, pulses present Neurological: moves all 4 limbs Lymphatic: no nodes Psychiatric: normal affect, A&O x 3 Skin: no rash, normal turgor Dx/Plan (1) DVT, bilateral lower limbs Code(s): I82.403 - ACUTE EMBOLISM AND THOMBOS UNSP DEEP VEINS OF LOW EXTRM, BI Status: Acute Qualifiers: Chronicity: acute Comment: Coumadin therapeutic with INR 2.3 (2) Dysphagia Code(s): R13.10 - DYSPHAGIA, UNSPECIFIED Status: Acute Qualifiers: Dysphagia type: oropharyngeal phase Qualified Code(s): R13.12 - Dysphagia, oropharyngeal phase Comment: Converted back to po intake and tolerating access hospital daytonh soft diet (3) Encephalopathy Code(s): G93.40 - ENCEPHALOPATHY, UNSPECIFIED Status: Acute Comment: Improving.Due to ICH (4) Fever Code(s): R50.9 - FEVER, UNSPECIFIED Status: Acute Comment: New .Likley developing PNA ? aspiration from PEG feeds (5) Physical deconditioning Code(s): R53.81 - OTHER MALAISE Status: Acute Comment: SNU vs HH (6) Pulmonary embolism Code(s): I26.99 - OTHER PULMONARY EMBOLISM WITHOUT ACUTE COR PULMONALE Status : Acute Qualifiers: Chronicity: acute Comment: Multiple emboli on CTA, Coumadin 3mg daily (7) SAH (subarachnoid hemorrhage) Code(s): I60.9 - NONTRAUMATIC SUBARACHNOID HEMORRHAGE, UNSPECIFIED Status: Acute Comment: s/p EVD per NS.s/p coiling PCOM region aneurysm, s/p ventriculostomy with EVD removal CYBER INCIDENT RESPONDER shunt done 07/19/17, stable region in R parietal region by CT imaging 07/31/17 (8) Seizure as late effect of cerebrovascular accident (CVA) Code(s): I69.398 - OTHER SEQUELAE OF CEREBRAL INFARCTION; R56.9 - UNSPECIFIED CONVULSIONS Status: Acute Comment: Continue Keppra 500mg BID (9) Sinus pause Code(s): I45.5 - OTHER SPECIFIED HEART BLOCK Status: Acute Comment: Stop BB for now (10) Sinus tachycardia Code(s): R00.0 - TACHYCARDIA, UNSPECIFIED Status: Acute Comment: Etiology unclear, suspect neuro-mediated, continue to monitor, start Coreg 3.125mg BID, decrease Hydralazine 25mg TID, decrease Norvasc 2.5mg daily, improving (11) HTN (hypertension), malignant Code(s): I10 - ESSENTIAL (PRIMARY) HYPERTENSION Status: Chronic Comment: severe (12) Acute hypoxemic respiratory failure Code(s): J96.01 - ACUTE RESPIRATORY FAILURE WITH HYPOXIA Status: Resolved Comment: Extubated successfully 06/23/17 (13) Acute renal failure Status: Resolved Comment: resolved. 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 Review of Systems - Review of Systems Eyes: negative: Pain, Vision Change, Conjunctivae Inflammation, Eyelid Inflammation, Redness, Other ENT: negative: Ear Pain, Ear Discharge, Nose Pain, Nose Discharge, Nose Congestion, Mouth Pain, Mouth Swelling, Throat Pain, Throat Swelling, Other Respiratory: negative: Cough, Dry, Shortness of Breath, Hemoptysis, SOB with Excertion, Pleuritic Pain, Sputum, Wheezing Cardiovascular: negative: chest pain, palpitations, orthopnea, paroxysmal nocturnal dyspnea, edema, light headedness, other Gastrointestinal: negative: Nausea, Vomiting, Abdominal Pain, Diarrhea, Constipation, Melena, Hematochezia, Other Genitourinary: negative: Dysuria, Frequency, Incontinence, Hematuria, Retention , Other Musculoskeletal: negative: Neck Pain, Shoulder Pain, Arm Pain, Back Pain, Hand Pain, Leg Pain, Foot Pain, Other Skin: negative: Rash, Lesions, Jaquan, Bruising, Other - Medications/Allergies Allergies/Adverse Reactions: Allergies Allergy/AdvReac Type Severity Reaction Status Date / Time ibuprofen Allergy Verified 07/02/17 09:00 Medications: Current Medications Acetaminophen (Tylenol) 650 mg PER TUBE Q4H PRN PRN Reason: Fever Last Admin: 08/11/17 20:22 Dose: 650 mg Albuterol/Ipratropium (Duoneb) 3 ml NEB [id number] PRN PRN Reason: SOB &/or Wheezing Amlodipine Besylate (Norvasc) 2.5 mg PO DAILY [facility] Last Admin: 08/14/17 09:29 Dose: 2.5 mg Carvedilol (Coreg) 3.125 mg PO BID-[facility] Last Admin: 08/14/17 09:28 Dose: 3.125 mg Mineral Oil/White Petrolatum 99 gm/ Cholestyramine Resin 4 gm 0 gm TOP BID [facility] Last Admin: 08/14/17 03:08 Dose: Not Given Mineral Oil/White Petrolatum 99 gm/ Cholestyramine Resin 4 gm 0 gm TOP PRN PRN PRN Reason: WOUND CARE Last Admin: 08/01/17 22:53 Dose: 1 top Diphenhydramine HCl (Benadryl) 50 mg IVP Q6H PRN PRN Reason: Itching Last Admin: 07/02/17 01:43 Dose: 50 mg Diphenhydramine HCl (Benadryl) 50 mg PER TUBE Q6H PRN PRN Reason: Itching & Insomnia Last Admin: 08/14/17 03:07 Dose: 50 mg Hydralazine HCl (Apresoline) 20 mg SLOW IVP Q4H PRN PRN Reason: Hypertension Last Admin: 06/26/17 13:37 Dose: 20 mg Hydralazine HCl (Apresoline) 25 mg PO TID [facility] Last Admin: 08/14/17 09:28 Dose: 25 mg Labetalol HCl (Normodyne) 10 mg SLOW IVP Q10MIN PRN PRN Reason: SBP > 140, HR > 70 Last Admin: 07/24/17 22:29 Dose: 10 mg Lactulose (Lactulose) 30 gm PER TUBE TIDPRN PRN PRN Reason: . Last Admin: 08/02/17 07:57 Dose: 30 gm Levetiracetam (Keppra) 500 mg PO BID [facility] Last Admin: 08/14/17 09:29 Dose: 500 mg Miscellaneous Medication (Pharmacy To Dose) 1 each PO PRN PRN PRN Reason: Pharmacy to dose Nicotine (Nicoderm Patch) 14 mg TOP DAILY [facility] Last Admin: 08/14/17 09:30 Dose: 14 mg Ondansetron HCl (Zofran) 4 mg SLOW IVP Q4H PRN PRN Reason: Nausea/Vomiting Pantoprazole Sodium (Protonix) 40 mg PO DAILY [facility] Last Admin: 08/14/17 09:28 Dose: 40 mg Potassium Chloride (K-Dur) 40 meq PO QAM [facility] Last Admin: 08/14/17 09:29 Dose: 40 meq Promethazine HCl (Phenergan) 25 mg IM Q4H PRN PRN Reason: Nausea/Vomiting Last Admin: 07/18/17 20:31 Dose: 25 mg Saccharomyces Boulardii (Florastor) 250 mg PO BID [facility] Last Admin: 08/14/17 09:29 Dose: 250 mg Sodium Chloride (Flush - Normal Saline) 10 ml IVF Q12HR [facility] Last Admin: 08/14/17 09:30 Dose: Not Given Sodium Chloride (Flush - Normal Saline) 10 ml IVF PRN PRN PRN Reason: Saline Flush Last Admin: 07/24/17 11:05 Dose: 10 ml Warfarin Sodium (Coumadin) 4 mg PO 1700 [place] Last Admin: 08/13/17 16:53 Dose: 4 mg
[2017-08-14 11:35] VITALS: BP 101/65
--- NOTE | 2017-08-14 11:57 | DIS ---
DATE OF ADMISSION: 06/14/2017 DATE OF DISCHARGE: 08/14/2017 PRIMARY CARE PHYSICIAN: [facility] call admission. DISCHARGE DISPOSITION: [facility] home. PRIMARY DISCHARGE DIAGNOSES: Subarachnoid hemorrhage status post bronchoscopy and laryngoscopy by Dr Davion Caballero, status post right ventriculostomy drain placement for subarachnoid hemorrhage for acute hy drocephalus, status post lumbar puncture, bilateral lower extremity deep vein thrombosis, pulmonary e mbolism, pulmonary infarction, ventriculoperitoneal shunt placement, status post cerebral angiography and successful coiling of aneurysm, status post PEG tube placement, status post diagnostic laparosco py by Dr. Javier, encephalopathy, acute febrile illness, seizure due to subarachnoid hemorrhage, mal ignant hypertension on admission, acute kidney failure improved, aspiration pneumonia resolved, acute respiratory failure with hypoxia resolved, lactic acidosis resolved, non-ST elevation myocardial inf arction resolved, metabolic acidosis resolved, lactic acidosis resolved. SECONDARY DISCHARGE DIAGNOSIS: Obesity. PRIMARY PROCEDURE/OPERATION: Cerebral angiography and coiling of aneurysm, external ventricular drai n placement for hydrocephalus, AUTOCLAVE OPERATOR shunt placement, bronchoscopy, laryngoscopy, intubation, central li ne placement, PEG tube placement. RADIOLOGICAL INVESTIGATION: Chest x-ray, CT brain, CT angiography, CT [place], repeat CT br ain, several chest x-rays when he was intubated, repeat CT [place], echocardiography, severa l CT brain in hospital, repeat CT angiography and repeat ultrasound of bilateral lower extremities, t esticular ultrasound. SIGNIFICANT LABORATORY DATA: WBC 3.5, hemoglobin 12.0, platelet 413. INR 2.2, creatinine 0.67. DISCHARGE MEDICATIONS: Amlodipine 2.5 mg p.o. daily, Coreg 3.125 mg p.o. b.i.d., hydralazine 25 mg p .o. t.i.d., Keppra 500 mg p.o. b.i.d., warfarin 4 mg p.o. daily. CONTRAINDICATIONS: None. CODE STATUS: FULL CODE. INPATIENT CONSULTANTS: Neurosurgeon admitted this patient and subsequently Sound Team was following. Pulmonary Group was consulted for respiratory failure. Neurosurgeon was following while in [facility] as well. TEST RESULTS PENDING ON DISCHARGE: None. ALLERGIES: IBUPROFEN. DISCHARGE PLAN: Post hospital, patient is discharged to senior care. Subsequently, patient will fo llow with primary care physician and neurosurgeon. HOSPITAL COURSE: A 47-year-old male who has long hospital course. Today is the only day I saw this patient. I never had any chance to see him in past. He was admitted to neurosurgeon for acute subarachnoid hemorrhage which was diagnosed based on CT cir [place], CT angiography and CT brain. Initially, there was no obvious aneurysm, but aneurysm w as diagnosed after cerebral angiography and coiling was performed. Because of subarachnoid hemorrhage, patient developed acute hydrocephalus, required lumbar drain plac ement with external ventricular drain and subsequently patient underwent ventriculoperitoneal shunt p lacement. Dr. Javier assisted to put peritoneal part of shunt, eventually external ventricular drai n was removed. The patient was also having multiple other problems including respiratory failure and that is why [facility] was following. Eventually, the patient was extubated. He also had multiple metabolic p roblems including acute kidney failure, lactic acidosis that was also improved by the time of dischar ge. He also had oropharyngeal dysphagia from encephalopathy that is why PEG tube was placed, but now lenny ent is on oral intake and he is no longer requiring to use PEG tube and that PEG tube can be removed after 8 weeks as per GI after discharge. He was transferred to stroke floor. He was waiting for placement for a long period of time. He deve loped bilateral lower extremity DVT and PE and then neurosurgeon cleared him for anticoagulation. At that point, we started on anticoagulation therapy and INR is therapeutic by the time of discharge. He also developed seizure from subarachnoid hemorrhage and that is why he was treated with a seizure medication. Finally, this patient is completely stable now for discharge. We are prescribing above-mentioned med ication for his uncontrolled blood pressure and now blood pressure is well controlled. He had malign ant hypertension on admission. He is ambulatory, tolerating p.o. well by mouth. insurance office manager has ar ranged his placement. The patient is seen and examined at bedside today. Please see my progress note from today. Total time spent on discharge day more than 30 minutes.
== END 2017-08-14 13:24 | DRG 23 ==
LOC: ERS 12:19 → CCU 14:13 → IMCU/EMU 06-28 14:30 → 2SE 07-01 05:49 → CCU 07-12 13:07 → 2SE 07-20 10:51
PROVIDERS: ADMIT Neurological Surgery; ATTEND Neurological Surgery
PROC: 0BH17EZ Insertion of Endotracheal Airway into Trachea, Via Natural or Artificial Opening (ICD-10-PCS; 2017-06-14)
PROC: 0BC18ZZ Extirpation of Matter from Trachea, Via Natural or Artificial Opening Endoscopic (ICD-10-PCS; 2017-06-14)
PROC: 5A1955Z Respiratory Ventilation, Greater than 96 Consecutive Hours (ICD-10-PCS; 2017-06-14)
PROC: 009630Z Drainage of Cerebral Ventricle with Drainage Device, Percutaneous Approach (ICD-10-PCS; 2017-06-18)
PROC: B315YZZ Fluoroscopy of Bilateral Common Carotid Arteries using Other Contrast (ICD-10-PCS; principal; 2017-06-20)
PROC: B31FYZZ Fluoroscopy of Left Vertebral Artery using Other Contrast (ICD-10-PCS; 2017-06-20)
PROC: 00P6X0Z Removal of Drainage Device from Cerebral Ventricle, External Approach (ICD-10-PCS; 2017-06-23)
PROC: 009U3ZZ Drainage of Spinal Canal, Percutaneous Approach (ICD-10-PCS; 2017-07-02)
PROC: 00PUX0Z Removal of Drainage Device from Spinal Canal, External Approach (ICD-10-PCS; 2017-07-07)
PROC: 0DH68UZ Insertion of Feeding Device into Stomach, Via Natural or Artificial Opening Endoscopic (ICD-10-PCS; 2017-07-13)
PROC: 009630Z Drainage of Cerebral Ventricle with Drainage Device, Percutaneous Approach (ICD-10-PCS; 2017-07-19)
PROC: 00163J6 Bypass Cerebral Ventricle to Peritoneal Cavity with Synthetic Substitute, Percutaneous Approach (ICD-10-PCS; 2017-07-19)
PROC: 0DW6XUZ Revision of Feeding Device in Stomach, External Approach (ICD-10-PCS; 2017-07-29)
PROC: 3E0T3BZ Introduction of Anesthetic Agent into Peripheral Nerves and Plexi, Percutaneous Approach (ICD-10-PCS; 2017-08-08)
PROC: 0VNTXZZ Release Prepuce, External Approach (ICD-10-PCS; 2017-08-08)
DX: I60.8 Other nontraumatic subarachnoid hemorrhage (principal); J96.01 Acute respiratory failure with hypoxia; J69.0 Pneumonitis due to inhalation of food and vomit; I21.4 Non-ST elevation (NSTEMI) myocardial infarction; G93.49 Other encephalopathy; I26.92 Saddle embolus of pulmonary artery without acute cor pulmonale; N17.9 Acute kidney failure, unspecified; I16.1 Hypertensive emergency; D68.4 Acquired coagulation factor deficiency; E87.2 Acidosis; G91.8 Other hydrocephalus; E87.1 Hypo-osmolality and hyponatremia; G40.89 Other seizures; I82.413 Acute embolism and thrombosis of femoral vein, bilateral; R47.01 Aphasia; G81.91 Hemiplegia, unspecified affecting right dominant side; K94.23 Gastrostomy malfunction; T45.515A Adverse effect of anticoagulants, initial encounter; I61.5 Nontraumatic intracerebral hemorrhage, intraventricular; F17.210 Nicotine dependence, cigarettes, uncomplicated; E87.6 Hypokalemia; R40.2431 Glasgow coma scale score 3-8, in the field [EMT or ambulance]; K08.89 Other specified disorders of teeth and supporting structures; T17.298A Other foreign object in pharynx causing other injury, initial encounter; Y84.8 Other medical procedures as the cause of abnormal reaction of the patient, or of later complication, without mention of misadventure at the time of the procedure; Y92.238 Other place in hospital as the place of occurrence of the external cause; D64.9 Anemia, unspecified; E87.5 Hyperkalemia; R47.1 Dysarthria and anarthria; I12.9 Hypertensive chronic kidney disease with stage 1 through stage 4 chronic kidney disease, or unspecified chronic kidney disease; N18.9 Chronic kidney disease, unspecified; I67.1 Cerebral aneurysm, nonruptured; E87.70 Fluid overload, unspecified; R13.12 Dysphagia, oropharyngeal phase; I44.1 Atrioventricular block, second degree; Y83.3 Surgical operation with formation of external stoma as the cause of abnormal reaction of the patient, or of later complication, without mention of misadventure at the time of the procedure; Y92.239 Unspecified place in hospital as the place of occurrence of the external cause; N43.3 Hydrocele, unspecified; N48.89 Other specified disorders of penis; N47.2 Paraphimosis; Z78.1 Physical restraint status; Z91.14 Patient's other noncompliance with medication regimen; Z91.81 History of falling; Z88.6 Allergy status to analgesic agent
CPT/HCPCS: 31500; 36223; 36225; 36415; 36416; 36430; 51702; 61624; 62270; 70450; 70496; 70498; 71045; 71275; 74018; 74230; 76870; 76942; 80048; 80053; 80202; 80306; 81001; 81003; 81015; 82088; 82330; 82550; 82553; 82803; 82805; 82945; 83605; 83690; 83735; 84100; 84157; 84244; 84484; 85007; 85014; 85018; 85025; 85027; 85049; 85060; 85379; 85610; 85730; 86780; 86850; 86900; 86901; 87040; 87070; 87077; 87186; 87205; 87220; 87252; 87324; 87449; 89051; 89220; 93005; 93010; 93306; 93970; 93976; 94002; 94003; 94640; 94760; 95816; 95819; 96365; 96366; 96375; A4216; A4353; C1769; C1887; C9113; G8978-GP-CK; G8978-GP-CM; G8978-GP-CN; G8979-GP-CJ; G8979-GP-CK; G8979-GP-CL; G8979-GP-CM; G8987-GO-CL; G8987-GO-CN; G8988-GO-CJ; G8988-GO-CN; G8989-GO-CN; G8996-GN-CJ; G8996-GN-CK; G8996-GN-CM; G8996-GN-CN; G8997-GN-CI; G8997-GN-CJ; G8997-GN-CK; J0131; J0360; J0456; J0692; J1200; J1644; J1940; J1953; J2001; J2060; J2185; J2250; J2270; J2370; J2543; J2550; J2704; J2720; J3010; J3370; J3480; J3490; J7050; J7620; P9059; S0017; S0028

== ENCOUNTER 2017-10-20 12:33 | Emergency (ER) | payer OTHER ==
[2017-10-20 13:17] LABS: #Basophils 0.1 thou/uL (0.0-0.2); #Eosinphils 0.2 thou/uL (0.0-0.7); #Lymphocytes 1.5 thou/uL (1.20-3.40); #Monocytes 0.4 thou/uL (0.11-0.59); #Neutrophils 1.3 thou/uL (1.40-6.50); %Basophils 1.5 % (0.0-1.0); %Eosinophils 7.1 % (0.0-10.0); %Lymphocytes 42.4 % (21.0-51.0); %Monocytes 12.1 % (0.0-10.0); %Neutrophils 36.9 % (42.0-75.0); Hemoglobin 12.5 g/dL (14.0-18.0); Mean Corpuscular HGB CONC 33.4 g/dL (32.0-36.0); Mean Corpuscular Hemoglobin 31.7 pg (27.0-31.0); Mean Corpuscular Volume 94.9 fL (78.0-98.0); Mean Platelet Volume 8.3 fL (7.4-10.4); Platelet Count 198 thou/uL (130-400); RBC Distribution Width 14.3 % (11.5-14.5); Red Blood Cell (RBC) Count 3.95 mill/uL (4.70-6.10); White Blood Cell (WBC) Count 3.4 thou/uL (4.8-10.8)
[2017-10-20 13:42] LABS: ALT (SGPT) 17 U/L (8-55); AST (SGOT) 13 U/L (5-34); Albumin 3.9 g/dL (3.5-5.0); Alkaline Phosphatase 111 U/L (40-150); Anion Gap 9 mmol/L (10-20); BUN (Urea Nitrogen) 11 mg/dL (8.9-20.6); Bilirubin, Total 0.2 mg/dL (0.2-1.2); Calc. Creatinine Clearance 0 mL/min (70-130); Calcium 9.2 mg/dL (7.8-10.44); Carbon Dioxide 28 mmol/L (22-29); Chloride 107 mmol/L (98-107); Estimated GFR-MDRD Greater than 90; Globulin 2.9 g/dL (2.4-3.5); Glucose 84 mg/dL (70-105); Lipase 29 U/L (8-78); Protein, Total 6.8 g/dL (6.0-8.3); Sodium 140 mmol/L (136-145)
[2017-10-20] MEDS ORDERED: Nitroglycerin 0.4 MG TAB (25 Tab Bottle) ONE (15:07)
[2017-10-20 15:20] LABS: INR-International Normal Ratio 1.5; Prothrombin Time 17.9 SEC (12.0-14.7)
--- NOTE | 2017-10-20 15:24 | RAD ---
PORTABLE CHEST 1 VIEW: Date: 10/20/17 Time: 1422 hours HISTORY: Chest pain. FINDINGS: Comparison made with exam of 07/11/17. The heart size is borderline. The lungs are expanded without focal areas of consolidation, pneumothor ax, juliana pulmonary edema, or pleural effusions. Right-sided PHARMACY OPERATIONS MANAGER shunt tubing is noted. IMPRESSION: No radiographic evidence of acute cardiopulmonary process. POS: [facility]
[2017-10-20 15:33] LABS: Bilirubin Negative (Negative); Blood, Urine Negative (Negative); Clarity CLEAR (Clear); Glucose, Urine (Dipstick) Negative (Negative); Leukocyte Negative (Negative); Nitrite Negative (Negative); Protein, Urine (Dipstick) Negative (Neg-Trace); Specific Gravity, Urine 1.013 (1.002-1.036); Urobilinogen 0.2 mg/dL (0.2-1.0)
[2017-10-20 16:42] LABS: CKMB 0.5 ng/mL (0-6.6); Troponin I Less than 0.010 ng/mL (< 0.028)
== END 2017-10-20 16:36 | disposition left against medical advice (07) ==
LOC: ERS 12:33
DX: R07.2 Precordial pain (principal); F17.210 Nicotine dependence, cigarettes, uncomplicated; I10 Essential (primary) hypertension
CPT/HCPCS: 36415; 71045; 80053; 81003; 82550; 82553; 83690; 83880; 84484; 85025; 85610; 93005; 96360

== ENCOUNTER 2018-01-01 16:29 | Outpatient (CLI) | payer MEDICAID ==
[2018-01-01 17:16] LABS: Hemoglobin 13.1 g/dL (14.0-18.0); Mean Corpuscular HGB CONC 32.8 g/dL (32.0-36.0); Mean Corpuscular Hemoglobin 31.3 pg (27.0-31.0); Mean Corpuscular Volume 95.5 fL (78.0-98.0); Platelet Count 206 thou/uL (130-400); RBC Distribution Width 14.2 % (11.5-14.5); Red Blood Cell (RBC) Count 4.17 mill/uL (4.70-6.10); White Blood Cell (WBC) Count 3.8 thou/uL (4.8-10.8)
[2018-01-01 17:41] LABS: Anion Gap 11 mmol/L (10-20); BUN (Urea Nitrogen) 12 mg/dL (8.9-20.6); Calc. Creatinine Clearance 0 mL/min (70-130); Calcium 9.3 mg/dL (7.8-10.44); Carbon Dioxide 25 mmol/L (22-29); Chloride 109 mmol/L (98-107); Estimated GFR-MDRD Greater than 90; Glucose 83 mg/dL (70-105); Potassium 3.6 mmol/L (3.5-5.1); Sodium 141 mmol/L (136-145)
== END 2018-01-01 16:30 | disposition home or self-care (01) ==
LOC: LABBT 16:29
PROVIDERS: ATTEND Urology
DX: Z01.818 Encounter for other preprocedural examination (principal); N47.2 Paraphimosis; N48.89 Other specified disorders of penis; R35.1 Nocturia
CPT/HCPCS: 80048; 85027; 93005; 93010; G0103

== ENCOUNTER 2018-03-23 19:36 | Inpatient (IN) | payer BC, MEDICAID ==
[2018-03-23] MEDS ORDERED: niCARdipine 20MG In NaCl 20 MG/200 ML BAG ONE (19:55)
[2018-03-23] MEDS ORDERED: levETIRAcetam In NaCl (Iso-Os) 1,500 MG in Premix Bag 1 BAG IVPB SCH (20:15)
[2018-03-23 20:16] LABS: #Basophils 0.1 thou/uL (0.0-0.2); #Eosinphils 0.3 thou/uL (0.0-0.7); #Lymphocytes 1.9 thou/uL (1.20-3.40); #Monocytes 0.5 thou/uL (0.11-0.59); #Neutrophils 1.6 thou/uL (1.40-6.50); %Basophils 1.4 % (0.0-1.0); %Eosinophils 6.4 % (0.0-10.0); %Lymphocytes 44.2 % (21.0-51.0); %Monocytes 10.9 % (0.0-10.0); %Neutrophils 37.1 % (42.0-75.0); Hemoglobin 13.8 g/dL (14.0-18.0); Mean Corpuscular HGB CONC 32.8 g/dL (32.0-36.0); Mean Corpuscular Hemoglobin 30.6 pg (27.0-31.0); Mean Corpuscular Volume 93.5 fL (78.0-98.0); Mean Platelet Volume 9.2 fL (7.4-10.4); Platelet Count 164 thou/uL (130-400); RBC Distribution Width 13.8 % (11.5-14.5); Red Blood Cell (RBC) Count 4.49 mill/uL (4.70-6.10); White Blood Cell (WBC) Count 4.2 thou/uL (4.8-10.8)
[2018-03-23 20:21] LABS: Prothrombin Time 13.3 SEC (12.0-14.7)
[2018-03-23 20:25] LABS: Bilirubin Negative (Negative); Blood, Urine Negative (Negative); Clarity CLEAR (Clear); Glucose, Urine (Dipstick) Negative (Negative); Leukocyte Negative (Negative); Nitrite Negative (Negative); Protein, Urine (Dipstick) Negative (Neg-Trace)
--- NOTE | 2018-03-23 20:28 | RAD ---
SEMIUPRIGHT CHEST ONE VIEW: 03/23/18 HISTORY: 48-year-old male with history of stroke alert. Slurred speech, left sided deficits. Intracranial hemo rrhage. Monitor leads overlie the chest. Right sided ENROBING MACHINE FEEDER shunt. Heart size is within normal limits. The lungs are clear. No pneumonia, edema, or pleural effusion. IMPRESSION: No acute intrathoracic disease. POS: [facility]
[2018-03-23 20:34] LABS: Amphetamine Not Detected (NotDetected); Barbiturates Screen Not Detected (NotDetected); Benzodiazepine Screen Not Detected (NotDetected); Cocaine Metabolite Screen Not Detected (NotDetected); Medtox Control Line Valid? VALID (VALID); Medtox Reader # READER 1; Methadone Not Detected (NotDetected); Methamphetamine Not Detected (NotDetected); Opiate Screen Not Detected (NotDetected); Oxycodone Screen Not Detected (NotDetected); Phencyclidine (PCP) Not Detected (NotDetected); THC/Cannabinoid Screen Not Detected (NotDetected); Tricyclic Screen Not Detected (NotDetected)
[2018-03-23 20:40] LABS: ALT (SGPT) 16 U/L (8-55); AST (SGOT) 16 U/L (5-34); Alkaline Phosphatase 141 U/L (40-150); Anion Gap 13 mmol/L (10-20); BUN (Urea Nitrogen) 12 mg/dL (8.9-20.6); Bilirubin, Total 0.2 mg/dL (0.2-1.2); Calc. Creatinine Clearance 0 mL/min (70-130); Calcium 9.3 mg/dL (7.8-10.44); Carbon Dioxide 24 mmol/L (22-29); Chloride 109 mmol/L (98-107); Estimated GFR-MDRD Greater than 90; Globulin 3.3 g/dL (2.4-3.5); Glucose 90 mg/dL (70-105); Magnesium 2.3 mg/dL (1.6-2.6); Potassium 4.3 mmol/L (3.5-5.1); Protein, Total 7.3 g/dL (6.0-8.3); Sodium 142 mmol/L (136-145)
[2018-03-23 21:00] LABS: Acetaminophen Less than 6.0 mcg/mL (10.0-30.0); Alcohol Less than 10 mg/dL (Less than 10); Salicylate Less than 8.0 mg/dL (15.0-30.0)
--- NOTE | 2018-03-23 21:11 | CT ---
EXAM: BRAIN CT WITHOUT IV CONTRAST: 03/23/18 HISTORY: Stroke activation, slurred speech, left sided defects, history of prior stroke. COMPARISON: 07/31/17 There is evidence for an acute intraparenchymal hemorrhage measuring approximately 2.1 x 4.1 cm in th e right upper basal ganglia and periventricular region with interventricular hemorrhagic extension. T here is minimal midline shift to the left slightly more prominent than on the prior study, prior exam of 07/31/17 demonstrate a right sided chronic subdural fluid collection. Right sided shunt tube in pl maia. No evidence for extra-axial, subdural, or epidural hemorrhage. There is some chronic white matte r ischemic changes in both posterior frontal areas. IMPRESSION: Evidence for acute intraparenchymal and interventricular hemorrhage. Minimal right sided mass effect. Previously noted right sided chronic subdural is no longer seen. Findings were discussed with Dr. Viveros at 7:45 p.m. Code CR POS: [facility]
[2018-03-23] MEDS ORDERED: Milk Of Magnesia 30 ML UDCUP PO PRN (21:48)
[2018-03-23] MEDS ORDERED: Docusate 100 MG CAP PO PRN (21:48)
[2018-03-23] MEDS ORDERED: Bisacodyl 10 MG SUPP PR PRN (21:48)
[2018-03-23] MEDS ORDERED: Labetalol HCl 100 MG/20 ML VIAL SLOW IVP PRN (21:48)
[2018-03-23] MEDS ORDERED: Mag-Al 1200 mg/1200 mg/30 ML UDCUP PO PRN (21:48)
[2018-03-23] MEDS ORDERED: Acetaminophen 325 MG TAB PO PRN (21:48)
[2018-03-23 23:29] LABS: Troponin I Less than 0.010 ng/mL (< 0.028)
[2018-03-24] MEDS: Sodium Chloride 0.9% 1,000 ML IV SCH ×3 (00:01→22:52)
[2018-03-24] MEDS: niCARdipine HCl 25 MG in Sodium Chloride 0.9% 250 ML 240 ML IVPB PRN ×8 (00:02→22:52)
[2018-03-24] MEDS ORDERED: Morphine 4 MG/ML VIAL SLOW IVP PRN (00:42)
[2018-03-24] MEDS ORDERED: traMADol HCl 50 MG TAB PO PRN (00:42)
[2018-03-24] MEDS: Ondansetron PF 4 MG/2 ML Vial IVP PRN ×3 (01:01→17:47)
[2018-03-24 02:45] LABS: Troponin I Less than 0.010 ng/mL (< 0.028)
--- NOTE | 2018-03-24 03:34 | HP ---
HISTORY OF PRESENT ILLNESS: Mr. Hassan is a 48-year-old male who was brought to the emergency department this evening for motor deficits along with facial droop , slurred speech and left-sided weakness. The patient has history of previous hypertensive hemorrhagic stroke last June. The patient was brought to the emergency department and he had a right-sided intraparenchymal hemorrhage in the basal ganglia. When I enter the patient's hospital room, he is lying comfortably in bed. He is surrounded by family members. He complains of a headache and tenderness over the right side of his forehead and samaritan. The patient complains of left- sided weakness. He is unable to move the left upper or lower extremity. He does not have any sensation or withdrawal from painful stimuli. The patient does have slurred speech. His is in the room. She states that the patient has recovered quite well from his previous hemorrhage in June. He has been able to be at home and walks fairly normal. He still has a little bit of weakness, however, this is a big change in his ability. patient has been compliant with his medications per his . He is not on any blood thinners. He was placed on Xarelto for pulmonary embolism and DVT found during a prior hospital stay. However, he ran out of his medication and has been unable to fill it for the last two weeks or so. The patient's states that he has quit smoking as well. The patient is not very compliant with the exam, however, he is able to move his right extremities well. He is coughing, but not very clearly and he follows commands. REVIEW OF SYSTEMS: The patient denies any fever or chills. No changes in vision or eye pain. No changes in hearing. No chest pain, dyspnea, no cough or shortness of breath. No abdominal pain or difficulty swallowing. No diarrhea or constipation. No nausea or vomiting. No muscle aches or pain. No changes in the skin. No rashes. The patient does report weakness in the left side, slurred speech. The patient has slurred speech and headache. PAST MEDICAL HISTORY: Positive for hypertension, hemorrhagic stroke, HUNTER GUIDE shunt placement, history of PE and DVT and decreased mobility. PAST SURGICAL HISTORY: PEG, shunt placement and liza holes. SOCIAL HISTORY: Patient drinks socially rarely. Currently uses drugs, abuses marijuana. The , the patient is using tobacco and lives at home with the family. MEDICATIONS: 1. Keppra. 2. Carvedilol. 3. Hydralazine. PHYSICAL EXAMINATION: CONSTITUTIONAL: The patient is alert and oriented x3. He does not appear to be visibly distressed. He is hypertensive, afebrile and nontoxic. HEENT. Head is normocephalic, atraumatic. Pupils are equal, round, and reactive to light. Extraocular movements are intact. Hearing is intact, decreased on the left. Moist mucous membranes. RESPIRATION: Normal work of breathing on room air. CARDIAC: Regular rate and rhythm. Normal S1 and S2. EXTREMITIES: The patient is unable to move the left upper extremity over the left lower extremity. He has good distal pulses. Right upper extremity 5/5 strength in deltoids, biceps, triceps and lens silverer strength, hip flexion, knee flexion, dorsiflexion, plantar flexion. NEURO: The patient is alert and oriented x3. He has slurred speech. Cranial nerves 2 through 12 are intact minus cranial nerve 7 decreased in sensation along the mandible to light touch as well as mild facial droop. Speech is spontaneous. Normal fund of knowledge. The patient is not cooperative with questions about history or memory. He is unable to move the left upper or lower extremities. He does not know when you are manipulating his foot beforehand. He does not respond to noxious stimuli to both extremities. IMAGING: CT head shows, in comparison to previous scan in July of 2017, there is evidence of an acute intraparenchymal and intraventricular hemorrhage that is approximately 2.1 x 4.1 cm in the right upper basal ganglia and periventricular regions. There is minimal midline shift. Minimal right-sided mass effect. ASSESSMENT AND PLAN: Mr. Hassan has sustained a second hypertensive intraparenchymal hemorrhage. The good news is that he is not on any blood thinners at this time. We need to bring his blood pressure down to below 150 systolic. We will admit him to the hospital and monitor neuro checks frequently with continued Keppra and at this time, we do not anticipate surgery. Job ID: [id number] [facility]
--- NOTE | 2018-03-24 08:35 | PRG ---
DATE OF SERVICE: 03/24/2018 NEUROSURGERY PROGRESS NOTE I personally interviewed, examined the patient, reviewed records and imaging and agreed with documentation of Ricarda Justin PA-C, dated 03/23/2018. Briefly, Marcos Hassan is a 48-year-old gentleman, who was admitted to [facility] in June of 2017 with some subarachnoid and intraventricular hemorrhage. 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 He was on his blood pressure medication, and yesterday, he had acute onset new neurological deficit with some neglect and weakness on the left side. CT examination revealed a thalamic and basal ganglia hemorrhage on the right. There was some extension into the ventricular system. There is a CT to review this morning. I saw Mr. Hassan in his ICU room. He is awake. He asked me if he needs surgery for this and was pleased to hear that I thought it was not necessary. He does adamantly tell me that he was on his blood pressure medication and that he has not had any spikes in blood pressure, although his admission BP was 210. He has been afebrile in the hospital. Blood pressures now are in the 120s to 130s. He is awake. He has decreased sensation on the entire left side and neglects left side. He has weakness as well. Right side moves well. I attempted to test the visual parra and I suspect there is a hemianopsia or neglect of the left with difficult to get an objective test because he minimizes his deficit. I reviewed CT examination of the brain this morning and it is stable from yesterday. There is no significant mass effect from the hemorrhage and he does not require a surgery. Mr. Hassan likely had a hypertensive hemorrhage following his aneurysmal subarachnoid hemorrhage. I will consider an angiogram on Monday or Monday with Dr. Johnson to ensure a previous aneurysm treatment is completed and no other lesions have developed. Job ID: [id number]
[2018-03-24] MEDS: Famotidine/PF 20 mg/2ml Vial SLOW IVP SCH ×2 (08:45→20:23)
[2018-03-24] MEDS: levETIRAcetam 500 MG TAB PO SCH ×2 (08:45→20:23)
--- NOTE | 2018-03-24 08:49 | CT ---
PRELIMINARY REPORT/[facility]/EMERGENTY AFTER-HOURS PROCEDURE CT Head Without Contrast EXAM DATE/TIME: 03/24/2018 4:52 AM CLINICAL HISTORY: 48 years old, male; Condition or disease; Other: Ich; Prior surgery; Patient HX: F/u ich TECHNIQUE: Axial computed tomography images of the head/brain without contrast. COMPARISON: CT Brain WO Con 03/23/2018 7:41 PM FINDINGS: Tubes, catheters and devices: Redemonstrated is a right posterior approach ventriculostomy tube in st able position. There is improvement of right basal ganglionic intraparenchymal hematoma now measuring 2.7 x 3.5 cm as previously measured 2.9 x 4.1 cm. There is residual hemorrhage in the right periventricular region. Again, there is intraventricular hemorrhage with slight worsening of th e posterior aspect of the left lateral ventricle. There is persistent vasogenic edema associated with right basal ganglionic hematoma. However, there is improvement of midline shift from right to left n ow measuring 0.6 cm. No new areas of hemorrhage. There is focal encephalomalacia of the anterior supe rior frontal lobes at parasagittal midline. There is persistent focus of decreased attenuation of the left cerebellum. Brain: See Tubes, Catheters And Devices Finding. Ventricles: See Tubes, Catheters And Devices Finding. Bones/joints: Normal. No acute fracture. Sinuses: Normal as visualized. No acute sinusitis. Mastoid air cells: Normal as visualized. No mastoid effusion. Soft tissues: Normal. IMPRESSION: Improvement of right basal ganglia intraparenchymal hematoma with intraventricular extension with imp rovement of midline shift. No new areas of hemorrhage. Thank you for allowing us to participate in the care of your patient. Dictated and Authenticated by: Arianne Michael DO 03/24/2018 5:44 AM Central Time ([place] & [place]) FINAL REPORT HEAD CT WITHOUT CONTRAST: DATE: 03/24/2018. COMPARISON: 03/23/2018. HISTORY: Reevaluate intracranial hemorrhage. FINDINGS: I agree with the preliminary [facility] report dictated by Dr. Arianne Michael. There is an intraaxial he morrhage centered in the region of the basal ganglia/thalamus on the right measuring 3.[address] dimension, slightly decreased in size when compared to the prior study. There is intraventricular hemorrhage within bilateral lateral ventricles, right greater than left. The intraventricular hemor rhage has slightly increased. Metallic density in the region of the ICA terminus noted on the right suggesting prior aneurysm treatment. There is shunt tubing inserted via right parietal approach terminating near the region of the superio r aspect right lateral ventricle, unchanged when compared to studies dating back to 07/27/2017. No ad ditional abnormality. IMPRESSION: Intraventricular extension of previously noted right basal ganglia hemorrhage as above. Hemorrhage v olume in basal ganglia has decreased slightly in size. POS: JACOB
--- NOTE | 2018-03-24 10:16 | CON ---
DATE OF CONSULTATION: HISTORY OF PRESENT ILLNESS: Marcos Hassan is a 48-year-old male, who was admitted last night with right-sided intracerebral hemorrhage. Currently, with hypertensive hemorrhage. He has a previous aneurysmal bleed subarachnoid, where he was hospitalized here for a prolonged period of time. He is due to have an angiogram on Monday or Monday. He remains in the ICU on a Cardene drip. He is brought to the ER with a motor deficit, facial droop, and left-sided weakness. June of last year, he had previous hypertensive hemorrhage with right-sided intraparenchymal hemorrhage at prior hospitalization. This is complicated by PE and DVT for which he took anticoagulation for a period of time. This morning in the ICU, he is responsive, encephalopathic, does move all 4 extremities. Answers questions appropriately with nodding. 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 PAST SURGICAL HISTORY: Shunt and PEG. SOCIAL HISTORY: As noted. Minimal alcohol. Minimal tobacco. Previous substance abuse. He is and lives with his . PHYSICAL EXAMINATION: VITAL SIGNS: On a Cardene drip, his blood pressure 126/85, pulse 85, saturations are 100%, respirations 13. CHEST: Decreased breath sounds without any wheezing. CARDIAC: Normal S1 and S2. No gallops. ABDOMEN: No masses. LABORATORY DATA: His lytes are normal. White count 4000, H and H of 13 and 42. His drug screen was negative. IMPRESSION: Intracerebral hemorrhage, hypertension, previous deep venous thrombosis, pulmonary embolism. PLAN: 1. I would restart home Keppra. Blood pressure medication as controlled. 2. Obviously to hold off Xarelto. 3. Concerned about DVT, PE, and will require filter. ICU consultation note, 70 minutes, 50% direct patient care. Job ID: [id number]
--- NOTE | 2018-03-24 15:23 | PDOC.PN ---
- Subjective Encounter Start Date: 03/24/18 Encounter Start Time: 15:21 Subjective: Pt seen & examined.Chart reviewed.IM team consulted by NS -: Pt came w Left sided weakness,facial droop,AMS & slurred speech -: Recent long stay for ICH/Hydrocephalus w PRESS OPERATOR PRINTING shunt done,PE/DVT - Objective MAR Reviewed: Yes Vital Signs & Weight: Vital Signs (12 hours) Temp Pulse Pulse BP BP Pulse Ox 03/24/18 12:00 98.2 F 03/24/18 10:23 98 92 126/96 H 128/96 H 03/24/18 07:40 99 03/24/18 07:00 98.6 F Weight Weight 237 lb 10.533 oz Most Recent Monitor Data Heart Rate from ECG 111 NIBP 140/100 NIBP BP-Mean 113 Respiration from ECG 17 SpO2 100 I&O: 03/23/18 03/24/18 03/25/18 06:59 06:59 06:59 Intake Total 1801 Output Total 2335 2049 Balance -534 -2049 Result Diagrams: 03/23/18 20:06 03/23/18 20:06 Additional Labs: Accuchecks 03/23/18 19:54 POC Glucose 82 Laboratory Tests 03/23/18 03/23/18 03/24/18 20:06 22:57 01:59 Troponin I Less than 0.010 Less than 0.010 Less than 0.010 Phys Exam - Physical Examination Constitutional: NAD awake,alert but confused.can't follow commands HEENT: PERRLA, moist MMs, sclera anicteric, oral pharynx no lesions Neck: no nodes, no JVD, supple, full ROM Respiratory: no wheezing, no rales, no rhonchi, clear to auscultation bilateral Cardiovascular: RRR, no significant murmur Gastrointestinal: soft, non-tender, no distention, positive bowel sounds Musculoskeletal: no edema, pulses present dense Left paraparesis.AMS Psychiatric: normal affect, A&O x 3 Dx/Plan (1) ICH (intracerebral hemorrhage) Code(s): I61.9 - NONTRAUMATIC INTRACEREBRAL HEMORRHAGE, UNSPECIFIED Status: Acute (2) Uncontrolled hypertension Code(s): I10 - ESSENTIAL (PRIMARY) HYPERTENSION Status: Resolved (3) Hx of pulmonary embolus Code(s): Z86.711 - PERSONAL HISTORY OF PULMONARY EMBOLISM Status: Chronic Comment: off of xarelto for many months as he ran out (4) H/O seizures Status: Chronic Comment: Due to ICH earlier this year. Restarted on keppra - Plan DVT proph w/SCDs Restart anti hypertensives PO.Titrate cardene drip down -: HD stable. -: cont keppra. -: cont to hold OAC for now in acute ICH setting but agree that he will need -: IVC filter.IM team will follow..monitor H/H,renal FX * . Review of Systems - Review of Systems Other: can not be obtained as the pt is very confused & thinks he is home - Medications/Allergies Allergies/Adverse Reactions: Allergies Allergy/AdvReac Type Severity Reaction Status Date / Time ibuprofen Allergy Hives Verified 03/23/18 23:00 Medications: Current Medications Acetaminophen (Tylenol) 650 mg PO Q6H PRN PRN Reason: Fever > 101 or Headache Al Hydroxide/Mg Hydroxide (Maalox) 30 ml PO QIDPRN PRN PRN Reason: Dyspepsia Amlodipine Besylate (Norvasc) 5 mg PO QAM [facility] Bisacodyl (Dulcolax) 10 mg [place] DAILYPRN PRN PRN Reason: Constipation Carvedilol (Coreg) 3.125 mg PO BID-WM [facility] Docusate Sodium (Colace) 100 mg PO BIDPRN PRN PRN Reason: Constipation Famotidine (Pepcid) 20 mg SLOW IVP Q12HR [facility] Last Admin: 03/24/18 08:45 Dose: 20 mg Hydralazine HCl (Apresoline) 25 mg PO TID [facility] Nicardipine HCl 25 mg/ Sodium (Chloride) 250 mls @ 0 mls/hr IVPB INF PRN; Protocol PRN Reason: SBP > 150 or DBP > 90 Last Admin: 03/24/18 13:43 Dose: 250 mls Sodium Chloride (Normal Saline 0.9%) 1,000 mls @ 80 mls/hr IV .[id number] [facility] Last Admin: 03/24/18 10:04 Dose: 1,000 mls Labetalol HCl (Normodyne) 10 mg SLOW IVP Q4H PRN PRN Reason: SBP > 150 or DBP > 90 Levetiracetam (Keppra) 500 mg PO BID [facility] Last Admin: 03/24/18 08:45 Dose: 500 mg Levetiracetam (Keppra) 500 mg PO BID [place] Magnesium Hydroxide (Milk Of Magnesium) 30 ml PO BIDPRN PRN PRN Reason: Constipation Morphine Sulfate (Morphine) 2 mg SLOW IVP Q2H PRN PRN Reason: PAIN IF UNABLE TO TAKE PO Last Admin: 03/24/18 00:56 Dose: 2 mg Ondansetron HCl (Zofran) 4 mg IVP BIDPRN PRN PRN Reason: Nausea/Vomiting Last Admin: 03/24/18 01:04 Dose: 4 mg Sodium Chloride (Flush - Normal Saline) 10 ml IVF PRN PRN PRN Reason: Saline Flush Tramadol HCl (Ultram) 50 mg PO Q4H PRN PRN Reason: .MILD PAIN Tramadol HCl (Ultram) 100 mg PO Q4H PRN PRN Reason: .SEVERE PAIN
[2018-03-24] MEDS ORDERED: Amlodipine 5 MG TAB PO SCH (15:45)
[2018-03-24] MEDS: Carvedilol 3.125 MG TAB PO SCH (16:58)
[2018-03-24] MEDS: traMADol HCl 50 MG TAB PO PRN (17:46)
[2018-03-24] MEDS: hydrALAZINE 25 MG TAB PO SCH (20:23)
[2018-03-24] MEDS ORDERED: levETIRAcetam 500 MG TAB PO SCH (21:00)
[2018-03-25] MEDS: niCARdipine HCl 25 MG in Sodium Chloride 0.9% 250 ML 240 ML IVPB PRN ×2 (02:32→08:18)
[2018-03-25] MEDS ORDERED: hydrALAZINE 20 MG/ML VIAL SLOW IVP PRN (07:04)
[2018-03-25] MEDS: hydrALAZINE 25 MG TAB PO SCH ×3 (08:17→20:45)
[2018-03-25] MEDS: Carvedilol 3.125 MG TAB PO SCH (08:17)
[2018-03-25] MEDS: levETIRAcetam 500 MG TAB PO SCH ×2 (08:17→20:45)
[2018-03-25] MEDS: Famotidine/PF 20 mg/2ml Vial SLOW IVP SCH ×2 (08:18→20:46)
[2018-03-25] MEDS: Sodium Chloride 0.9% 1,000 ML IV SCH ×2 (08:19→23:30)
[2018-03-25] MEDS ORDERED: Amlodipine 5 MG TAB PO SCH ×2 (09:00→13:45)
--- NOTE | 2018-03-25 09:54 | PRG ---
DATE OF SERVICE: 03/25/2018 NEUROSURGERY PROGRESS NOTE I saw Mr. Hassan in his ICU room this wound. He is eating breakfast including sausage and Sami toast today. I did ask him about continued symptoms. He is more concerned about eating, particularly worried about his hemorrhage noted. He complains significantly about his headaches. Blood pressures are attempted to be controlled with Cardene drip and is still on 5 mcg. Mr. Hassan is awake, he is answering questions appropriately, pays attention to the right side of his body and right visual field with basal tension to the left. He also wears napkins to help wipe his mouth, but sitting left of him and we cannot appreciate that. I am moving to the right, then he sees it and takes it. He has motion on the left side, but the sensation is diminished compared to the right. Today's sodium is not yet obtained. Mr. Hassan is off his blood pressure drip with reasonable control on oral medications. He can be transferred out to the neurosurgery floor. I am going to communicate with Dr. Johnson about the intracerebral hemorrhage and the history of aneurysmal subarachnoid hemorrhage. He is willing to do the diagnostic angiogram to check the colon and ensure that no lesions have developed. This may be added to the schedule tomorrow. For this, he will need to be n.p.o. after midnight. Job ID: [id number]
--- NOTE | 2018-03-25 09:54 | PRG ---
DATE OF SERVICE: 03/25/2018 SUBJECTIVE: Mo remains in the ICU. Awake, alert, and responsive. He ate breakfast today. Moves all four extremities. Denies any headaches. Difficulty breathing. OBJECTIVE: VITAL SIGNS: Blood pressure is 146/92, pulse 93, respiratory rate 18, and sats 98%. CHEST: Minimal rhonchi. CARDIAC: Normal S1 and S2. No gallops. ABDOMEN: No masses. IMPRESSION: Subarachnoid hemorrhage and hypertension. PLAN: Control blood pressure as outlined. Supportive care, nutrition, and PT. We will follow while in the ICU. Already started on p.o. medication. Job ID: [id number]
--- NOTE | 2018-03-25 13:33 | PDOC.PN ---
- Subjective Encounter Start Date: 03/25/18 Encounter Start Time: 13:32 Subjective: more awake today and asking questions. -: when asked ,reports" i have stroke" - Objective MAR Reviewed: Yes Vital Signs & Weight: Vital Signs (12 hours) Temp Pulse Pulse Pulse BP BP BP 03/25/18 12:00 98.9 F 03/25/18 10:22 80 92 120/85 119/81 03/25/18 08:18 93 146/92 H 03/25/18 08:17 93 146/92 H 03/25/18 07:00 98.8 F Pulse Ox Pulse Ox 03/25/18 12:00 03/25/18 10:22 99 100 03/25/18 08:18 03/25/18 08:17 03/25/18 07:00 Weight Weight 246 lb 14.684 oz Most Recent Monitor Data Heart Rate from ECG 78 NIBP 145/102 NIBP BP-Mean 116 Respiration from ECG 14 SpO2 100 I&O: 03/24/18 03/25/18 03/26/18 06:59 06:59 06:59 Intake Total 1801 3730 313 Output Total 2335 4155 390 [facility] -534 -425 -77 Result Diagrams: 03/23/18 20:06 03/23/18 20:06 Phys Exam - Physical Examination Constitutional: NAD slow mentation HEENT: PERRLA, moist MMs, sclera anicteric, oral pharynx no lesions Neck: no nodes, no JVD, supple, full ROM Respiratory: no wheezing, no rales, no rhonchi Cardiovascular: RRR, no significant murmur Gastrointestinal: soft, non-tender, no distention, positive bowel sounds Musculoskeletal: no edema, pulses present Left sied hemiparesis,left neglect Psychiatric: normal affect Deviation from normal: slow however Skin: no rash Dx/Plan (1) ICH (intracerebral hemorrhage) Code(s): I61.9 - NONTRAUMATIC INTRACEREBRAL HEMORRHAGE, UNSPECIFIED Status: Acute (2) Uncontrolled hypertension Code(s): I10 - ESSENTIAL (PRIMARY) HYPERTENSION Status: Resolved (3) Hx of pulmonary embolus Code(s): Z86.711 - PERSONAL HISTORY OF PULMONARY EMBOLISM Status: Chronic Comment: off of xarelto for many months as he ran out (4) H/O seizures Status: Chronic Comment: Due to ICH earlier this year. Restarted on keppra - Plan DVT proph w/SCDs increase coreg and norvasc & titrate cardene drip off -: repeat CT brain per primary team -: HD stable otherwise -: Discuss IVC filter prior to DC given PE/DVT 06/28.pt non compliant w Xarleto -: IM team will follow. OK to transfer to stroke. * . Review of Systems - Review of Systems Other: limited due to AMS from stroke - Medications/Allergies Allergies/Adverse Reactions: Allergies Allergy/AdvReac Type Severity Reaction Status Date / Time ibuprofen Allergy Hives Verified 03/23/18 23:00 Medications: Current Medications Acetaminophen (Tylenol) 650 mg PO Q6H PRN PRN Reason: Fever > 101 or Headache Last Admin: 03/24/18 17:39 Dose: 650 mg Al Hydroxide/Mg Hydroxide (Maalox) 30 ml PO QIDPRN PRN PRN Reason: Dyspepsia Amlodipine Besylate (Norvasc) 5 mg PO [facility] Amlodipine Besylate (Norvasc) 10 mg PO QAM [place] Bisacodyl (Dulcolax) 10 mg [place] DAILYPRN PRN PRN Reason: Constipation Carvedilol (Coreg) 3.125 mg PO [facility] Carvedilol (Coreg) 6.25 mg PO BID-WM [place] Docusate Sodium (Colace) 100 mg PO BIDPRN PRN PRN Reason: Constipation Famotidine (Pepcid) 20 mg SLOW IVP Q12HR [facility] Last Admin: 03/25/18 08:18 Dose: 20 mg Hydralazine HCl (Apresoline) 25 mg PO TID [facility] Last Admin: 03/25/18 08:17 Dose: 25 mg Hydralazine HCl (Apresoline) 10 mg SLOW IVP Q4H PRN PRN Reason: SBP>160 Nicardipine HCl 25 mg/ Sodium (Chloride) 250 mls @ 0 mls/hr IVPB INF PRN; Protocol PRN Reason: SBP > 150 or DBP > 90 Last Admin: 03/25/18 08:18 Dose: 250 mls Sodium Chloride (Normal Saline 0.9%) 1,000 mls @ 80 mls/hr IV .[id number] [facility] Last Admin: 03/25/18 08:19 Dose: 1,000 mls Labetalol HCl (Normodyne) 10 mg SLOW IVP Q4H PRN PRN Reason: SBP > 150 or DBP > 90 Levetiracetam (Keppra) 500 mg PO BID [place] Last Admin: 03/25/18 08:17 Dose: 500 mg Magnesium Hydroxide (Milk Of Magnesium) 30 ml PO BIDPRN PRN PRN Reason: Constipation Morphine Sulfate (Morphine) 2 mg SLOW IVP Q2H PRN PRN Reason: PAIN IF UNABLE TO TAKE PO Last Admin: 03/24/18 00:56 Dose: 2 mg Ondansetron HCl (Zofran) 4 mg IVP BIDPRN PRN PRN Reason: Nausea/Vomiting Last Admin: 03/24/18 17:47 Dose: 4 mg Sodium Chloride (Flush - Normal Saline) 10 ml IVF PRN PRN PRN Reason: Saline Flush Tramadol HCl (Ultram) 50 mg PO Q4H PRN PRN Reason: .MILD PAIN Tramadol HCl (Ultram) 100 mg PO Q4H PRN PRN Reason: .SEVERE PAIN Last Admin: 03/24/18 17:46 Dose: 100 mg
[2018-03-25] MEDS ORDERED: Carvedilol 3.125 MG TAB PO SCH (13:45)
[2018-03-25] MEDS: Carvedilol 6.25 MG TAB PO SCH (18:15)
[2018-03-26] MEDS: traMADol HCl 50 MG TAB PO PRN ×2 (00:46→15:38)
[2018-03-26] MEDS ORDERED: HYDROcodone/Acetaminophen 5/325 mg Tablet PO PRN (07:27)
[2018-03-26] MEDS ORDERED: Loratadine 10 MG TAB PO PRN (07:27)
[2018-03-26] MEDS ORDERED: Eucerin (Mineral Oil/Petrolatum,White) 30 gm Jar TOP PRN (07:27)
[2018-03-26] MEDS ORDERED: Senokot S 8.6-50 MG TAB PO PRN (07:27)
[2018-03-26] MEDS ORDERED: Loperamide HCl 2 MG CAP PO PRN (07:27)
[2018-03-26] MEDS ORDERED: Ondansetron ODT 4 MG TAB PO PRN (07:27)
[2018-03-26] MEDS ORDERED: Sodium Chloride 0.65% Nasal 44 ML BOT EA NARE PRN (07:27)
[2018-03-26] MEDS ORDERED: Diabetic Tussin 200 MG/10 ML UDCUP PO PRN (07:27)
[2018-03-26] MEDS ORDERED: Artificial Tears 18 DROP/0.9 ML EA EYE PRN (07:27)
[2018-03-26] MEDS ORDERED: Zolpidem Tartrate 5 MG TAB PO PRN (07:27)
[2018-03-26] MEDS ORDERED: Acetaminophen 500 MG TAB PO PRN (07:27)
[2018-03-26] MEDS ORDERED: Cepastat Lozenges 1 LOZ PO PRN (07:27)
[2018-03-26] MEDS ORDERED: Bisacodyl 10 MG SUPP PR PRN (07:27)
--- NOTE | 2018-03-26 08:42 | PRG ---
DATE OF SERVICE: 03/26/2018 SUBJECTIVE: I saw, Marcos Espinal, in his ICU room this morning. He has no new complaints. We made him n.p.o. after midnight for an angiogram this morning. OBJECTIVE: VITAL SIGNS: Overnight, the T-max recorded with 99.3, blood pressures since yesterday have ranged in the 130s to 140s. ASSESSMENT: Mr. Hassan has no new neurological deficit that I can appreciate. He has decreased sensation and decreased attention to the left hemibody and left visual field. PLAN: Plan for Mr. Hassan is for diagnostic cerebral angiogram. Check previous aneurysm that was treated for hemorrhage last summer as well as looking for any new lesions. I believe this hemorrhage is a hypertensive one rather than aneurysmal, but the angiogram will be beneficial in ruling out unexpected findings. Job ID: [id number]
--- NOTE | 2018-03-26 08:57 | PRG ---
DATE OF SERVICE: 03/26/2018 SUBJECTIVE: The patient remains in the ICU. He is scheduled to go down for a CT angiogram and perhaps coiling. OBJECTIVE: VITAL SIGNS: Temperature is 99.1, pulse 95, blood pressure 153/99, and O2 saturation 100%. NEUROLOGIC: He is hemiparetic on the left side. Right side moves without difficulty. HEENT: Otherwise, unremarkable. The left face improved. NECK: No JVD. CHEST: Clear. CARDIAC: S1 and S2, regular. ABDOMEN: Soft. EXTREMITIES: No edema. LABORATORY DATA: No labs were done today. ASSESSMENT: 1. Subarachnoid hemorrhage, possibly aneurysmal bleed. 2. Hypertension. 3. Stroke with left-sided hemiparesis. PLAN: As stated above, his hypertension seems to be under reasonable control on oral medications. Out to the stroke floor when okay with Neurosurgery. Job ID: [id number]
[2018-03-26] MEDS ORDERED: Lidocaine 1% (PF) 30 ML VIAL ONE (09:45)
--- NOTE | 2018-03-26 09:47 | PRG ---
DATE OF SERVICE: 03/26/2018 SUBJECTIVE: Mr. Hassan was admitted on the with altered mental status. He had a noncontrast head CT performed, which revealed presence of intraparenchymal hemorrhage and the right basal ganglia. He has a prior history of right anterior circulation aneurysm coiled. He also has ventriculoperitoneal shunt in place from his previous subarachnoid hemorrhage. PLAN: The plan this morning will be to perform conventional angiography to further evaluate the previously coiled aneurysm as well to evaluate for further potential vascular lesions. I explained to Mr. Hassan the plan as well as all associated risks, benefits, and alternatives. I answered his questions. He understands and provided informed consent. We have also spoken to his , who also offered consent over the phone. Job ID: [id number]
--- NOTE | 2018-03-26 10:00 | PDOC.PN ---
- Subjective Encounter Start Date: 03/26/18 Encounter Start Time: 08:20 -: old records requested/rev Patient seen and examined. No new complaints. No overnight events - Objective MAR Reviewed: Yes Vital Signs & Weight: Vital Signs (12 hours) Temp Pulse Ox 03/26/18 07:47 100 03/26/18 07:00 99.1 F 03/26/18 04:00 99.3 F 03/26/18 00:00 98.9 F Weight Weight 247 lb 5.738 oz Most Recent Monitor Data Heart Rate from ECG 95 NIBP 143/99 NIBP BP-Mean 113 Respiration from ECG 18 SpO2 100 I&O: 03/25/18 03/26/18 03/27/18 06:59 06:59 06:59 Intake Total 3730 2296 Output Total 4159 2855 125 Balance -425 -559 -125 Result Diagrams: 03/23/18 20:06 03/23/18 20:06 EKG Reviewed by me: Yes (nsr) Phys Exam - Physical Examination Constitutional: NAD HEENT: PERRLA, moist MMs, sclera anicteric Neck: no JVD, supple Respiratory: no wheezing, no rales, no rhonchi Cardiovascular: RRR, no significant murmur, no rub Gastrointestinal: soft, non-tender, no distention, positive bowel sounds Musculoskeletal: no edema, pulses present left side weakness Lymphatic: no nodes Psychiatric: normal affect, A&O x 3 Skin: no rash, normal turgor Dx/Plan (1) History of deep venous thrombosis or pulmonary embolus Code(s): [id number] - Status: Acute (2) ICH (intracerebral hemorrhage) Code(s): I61.9 - NONTRAUMATIC INTRACEREBRAL HEMORRHAGE, UNSPECIFIED Status: Acute Comment: right basal ganglia, with previous h/o SAH (3) HTN (hypertension) Code(s): I10 - ESSENTIAL (PRIMARY) HYPERTENSION Status: Chronic Qualifiers: Hypertension type: essential hypertension Qualified Code(s): I10 - Essential (primary) hypertension Comment: (4) Obesity (BMI 30-39.9) Code(s): E66.9 - OBESITY, UNSPECIFIED Status: Chronic (5) Seizure as late effect of cerebrovascular accident (CVA) Code(s): I69.398 - OTHER SEQUELAE OF CEREBRAL INFARCTION; R56.9 - UNSPECIFIED CONVULSIONS Status: Chronic - Plan cont current plan of care * today cerebral angiography * medication reviewed as below * symptomatic treatment * BP controlled * transfer to stroke when neurosurgeon ok. Review of Systems - Review of Systems ENT: negative: Ear Pain, Ear Discharge, Nose Pain, Nose Discharge, Nose Congestion, Mouth Pain, Mouth Swelling, Throat Pain, Throat Swelling, Other Respiratory: negative: Cough, Dry, Shortness of Breath, Hemoptysis, SOB with Excertion, Pleuritic Pain, Sputum, Wheezing Cardiovascular: negative: chest pain, palpitations, orthopnea, paroxysmal nocturnal dyspnea, edema, light headedness, other Gastrointestinal: negative: Nausea, Vomiting, Abdominal Pain, Diarrhea, Constipation, Melena, Hematochezia, Other Genitourinary: negative: Dysuria, Frequency, Incontinence, Hematuria, Retention , Other Musculoskeletal: negative: Neck Pain, Shoulder Pain, Arm Pain, Back Pain, Hand Pain, Leg Pain, Foot Pain, Other - Medications/Allergies Allergies/Adverse Reactions: Allergies Allergy/AdvReac Type Severity Reaction Status Date / Time ibuprofen Allergy Hives Verified 03/23/18 23:00 Medications: Current Medications Acetaminophen (Tylenol) 500 mg PO Q6H PRN PRN Reason: Mild Pain (1-3) Hydrocodone Bitart/Acetaminophen ([place] 5/325) 1 tab PO Q4H PRN PRN Reason: Moderate Pain (4-6) Al Hydroxide/Mg Hydroxide (Maalox) 30 ml PO QIDPRN PRN PRN Reason: Dyspepsia Amlodipine Besylate (Norvasc) 10 mg PO QAM [facility] Artificial Tears (Tears Naturale) 2 drop EA EYE PRN PRN PRN Reason: Dry Eyes Bisacodyl (Dulcolax) 10 mg IN DAILYPRN PRN PRN Reason: Constipation Carvedilol (Coreg) 6.25 mg PO BID-[facility] Last Admin: 03/25/18 18:15 Dose: 6.25 mg Docusate Sodium (Colace) 100 mg PO BIDPRN PRN PRN Reason: Constipation Famotidine (Pepcid) 20 mg SLOW IVP Q12HR [facility] Last Admin: 03/25/18 20:46 Dose: 20 mg Guaifenesin (Robitussin Sf) 200 mg PO Q4H PRN PRN Reason: Cough Hydralazine HCl (Apresoline) 25 mg PO TID [facility] Last Admin: 03/25/18 20:45 Dose: 25 mg Hydralazine HCl (Apresoline) 10 mg SLOW IVP Q4H PRN PRN Reason: SBP>160 Nicardipine HCl 25 mg/ Sodium (Chloride) 250 mls @ 0 mls/hr IVPB INF PRN; Protocol PRN Reason: SBP > 150 or DBP > 90 Last Admin: 03/25/18 08:18 Dose: 250 mls Sodium Chloride (Normal Saline 0.9%) 1,000 mls @ 80 mls/hr IV .[id number] [facility] Last Admin: 03/25/18 23:30 Dose: 1,000 mls Labetalol HCl (Normodyne) 10 mg SLOW IVP Q4H PRN PRN Reason: SBP > 150 or DBP > 90 Levetiracetam (Keppra) 500 mg PO BID [facility] Last Admin: 03/25/18 20:45 Dose: 500 mg Loperamide HCl (Imodium) 2 mg PO PRN PRN PRN Reason: Diarrhea/Loose Stools Loratadine (Claritin) 10 mg PO DAILYPRN PRN PRN Reason: Sinus Symptoms Magnesium Hydroxide (Milk Of Magnesium) 30 ml PO BIDPRN PRN PRN Reason: Constipation Mineral Oil/White Petrolatum (Eucerin Cream) 0 gm TOP BIDPRN PRN PRN Reason: Dry Skin Morphine Sulfate (Morphine) 2 mg SLOW IVP Q2H PRN PRN Reason: PAIN IF UNABLE TO TAKE PO Last Admin: 03/24/18 00:56 Dose: 2 mg Ondansetron HCl (Zofran) 4 mg IVP BIDPRN PRN PRN Reason: Nausea/Vomiting Last Admin: 03/24/18 17:47 Dose: 4 mg Ondansetron HCl (Zofran Odt) 4 mg PO Q6H PRN PRN Reason: Nausea/Vomiting Senna/Docusate Sodium (Senokot S) 2 tab PO BID PRN PRN Reason: Constipation Sodium Chloride (Flush - Normal Saline) 10 ml IVF PRN PRN PRN Reason: Saline Flush Sodium Chloride ([place] Nasal [place] 0.65%) 0 ml EA NARE QIDPRN PRN PRN Reason: Nasal Congestion Throat Lozenges (Cepastat Lozenges) 1 carlos PO Q2H PRN PRN Reason: Sore Throat Tramadol HCl (Ultram) 50 mg PO Q4H PRN PRN Reason: .MILD PAIN Tramadol HCl (Ultram) 100 mg PO Q4H PRN PRN Reason: .SEVERE PAIN Last Admin: 03/26/18 00:46 Dose: 100 mg Zolpidem Tartrate (Ambien) 5 mg PO HSPRN PRN PRN Reason: Insomnia
[2018-03-26] MEDS ORDERED: Iopamidol 370 76% 100 ML VIAL ONE (10:01)
[2018-03-26] MEDS ORDERED: Heparin 10,000 UNITS/1 ML VIAL ONE (10:40)
[2018-03-26] MEDS: levETIRAcetam 500 MG TAB PO SCH ×2 (12:05→20:56)
[2018-03-26] MEDS: Amlodipine 10 MG TAB PO SCH (12:05)
[2018-03-26] MEDS: hydrALAZINE 25 MG TAB PO SCH ×3 (12:05→20:56)
[2018-03-26] MEDS: Famotidine/PF 20 mg/2ml Vial SLOW IVP SCH (12:06)
[2018-03-26] MEDS: Carvedilol 6.25 MG TAB PO SCH ×2 (12:10→16:23)
[2018-03-26] MEDS: Sodium Chloride 0.9% 1,000 ML IV SCH (13:00)
[2018-03-26] MEDS: Famotidine 20 MG TAB PO SCH (20:55)
[2018-03-27] MEDS: Sodium Chloride 0.9% 1,000 ML IV SCH (01:07)
[2018-03-27 07:52] LABS: Anion Gap 14 mmol/L (10-20); BUN (Urea Nitrogen) 13 mg/dL (8.9-20.6); Calc. Creatinine Clearance 161 mL/min (70-130); Calcium 9.5 mg/dL (7.8-10.44); Carbon Dioxide 22 mmol/L (22-29); Chloride 105 mmol/L (98-107); Estimated GFR-MDRD Greater than 90; Glucose 87 mg/dL (70-105); Potassium 3.5 mmol/L (3.5-5.1); Sodium 137 mmol/L (136-145)
[2018-03-27] MEDS: Carvedilol 6.25 MG TAB PO SCH ×2 (07:55→16:50)
[2018-03-27] MEDS: Amlodipine 10 MG TAB PO SCH (07:56)
[2018-03-27] MEDS: levETIRAcetam 500 MG TAB PO SCH ×2 (07:56→20:15)
[2018-03-27] MEDS: hydrALAZINE 25 MG TAB PO SCH ×3 (07:56→20:15)
[2018-03-27] MEDS: Famotidine 20 MG TAB PO SCH ×2 (07:56→20:15)
[2018-03-27 08:32] LABS: #Basophils 0.1 thou/uL (0.0-0.2); #Eosinphils 0.2 thou/uL (0.0-0.7); #Lymphocytes 1.5 thou/uL (1.20-3.40); #Monocytes 0.8 thou/uL (0.11-0.59); #Neutrophils 3.1 thou/uL (1.40-6.50); %Basophils 0.9 % (0.0-1.0); %Eosinophils 4.2 % (0.0-10.0); %Lymphocytes 26.4 % (21.0-51.0); %Monocytes 13.8 % (0.0-10.0); %Neutrophils 54.8 % (42.0-75.0); Hemoglobin 14.8 g/dL (14.0-18.0); Mean Corpuscular HGB CONC 33.3 g/dL (32.0-36.0); Mean Platelet Volume 9.3 fL (7.4-10.4); Platelet Count 194 thou/uL (130-400); RBC Distribution Width 13.7 % (11.5-14.5); Red Blood Cell (RBC) Count 4.78 mill/uL (4.70-6.10); White Blood Cell (WBC) Count 5.6 thou/uL (4.8-10.8)
--- NOTE | 2018-03-27 08:32 | PRG ---
DATE OF SERVICE: 03/27/2018 I saw Marcos Hassan in his ICU room this morning. He had a diagnostic angiogram yesterday, and there was no new aneurysm formation and no high-risk lesions. We will treat this as a hypertensive hemorrhage in the basal ganglia. Overnight, vital signs have been stable, and there are no fevers recorded. Blood pressures have been in the 104 to 146 range. This morning, Mr. Hassan is awake. He answers questions appropriately. He has some deficits from previous stroke, but no new neurological deficit. I would like to move Mr. Hassan to the floor and begin aggressive physical therapy. If he is safe with activities of daily living, he can be discharged, and if he is unsafe, rehab placement will need to be considered. Job ID: [id number]
[2018-03-27] MEDS: Ziprasidone 20 MG VIAL IM PRN ×2 (09:04→12:43)
--- NOTE | 2018-03-27 10:44 | PRG ---
DATE OF SERVICE: 03/27/2018 SUBJECTIVE: The patient is confused, pleasantly combative. OBJECTIVE: VITAL SIGNS: Temperature 98.3, pulse 90, blood pressure 136/103, and O2 saturation 94%. HEENT: Unremarkable. NECK: No JVD. LUNGS: Clear. CARDIAC: S1 and S2. Regular. NEUROLOGIC: He is still neglecting his left side and has no movement in left side. LABORATORY DATA: White blood cell count 5.6, hematocrit 44.4, platelet count 194. Sodium 137, potassium 3.5, chloride 105, CO2 of 22, BUN 13, creatinine 0.8, and glucose 87. ASSESSMENT: 1. Brain hemorrhage with left-sided hemiparesis. 2. Confusion. PLAN: 1. Stop narcotic medications. 2. Stop order. 3. Try low-dose of Geodon to see that will help. Job ID: [id number]
--- NOTE | 2018-03-27 10:46 | PDOC.PN ---
- Subjective Encounter Start Date: 03/27/18 Encounter Start Time: 09:00 pt is confused, but stable, he has delusion and hallucination - Objective MAR Reviewed: Yes Vital Signs & Weight: Vital Signs (12 hours) Temp Pulse BP Pulse Ox 03/27/18 07:56 72 144/95 H 03/27/18 07:55 144/95 H 03/27/18 07:00 99 03/27/18 06:54 98.3 F 03/27/18 04:00 98.3 F 03/27/18 00:00 98.6 F Weight Weight 235 lb 10.786 oz Most Recent Monitor Data Heart Rate from ECG 84 NIBP 148/98 NIBP BP-Mean 114 Respiration from ECG 16 SpO2 96 I&O: 03/26/18 03/27/18 03/28/18 06:59 06:59 06:59 Intake Total 2296 2306 440 Output Total 2855 1895 95 Balance -559 411 345 Result Diagrams: 03/27/18 07:08 03/27/18 07:08 EKG Reviewed by me: Yes (nsr) Phys Exam - Physical Examination Constitutional: NAD HEENT: PERRLA, moist MMs, sclera anicteric Neck: no JVD, supple Respiratory: no wheezing, no rales, no rhonchi Cardiovascular: RRR, no significant murmur, no rub Gastrointestinal: soft, non-tender, no distention, positive bowel sounds Musculoskeletal: no edema, pulses present Neurological: non-focal, normal sensation Lymphatic: no nodes Psychiatric: normal affect Skin: no rash, normal turgor Dx/Plan (1) History of deep venous thrombosis or pulmonary embolus Code(s): IKC4512 - Status: Acute (2) ICH (intracerebral hemorrhage) Code(s): I61.9 - NONTRAUMATIC INTRACEREBRAL HEMORRHAGE, UNSPECIFIED Status: Acute Comment: right basal ganglia, with previous h/o SAH (3) HTN (hypertension) Code(s): I10 - ESSENTIAL (PRIMARY) HYPERTENSION Status: Chronic Qualifiers: Hypertension type: essential hypertension Qualified Code(s): I10 - Essential (primary) hypertension Comment: (4) Obesity (BMI 30-39.9) Code(s): E66.9 - OBESITY, UNSPECIFIED Status: Chronic (5) Seizure as late effect of cerebrovascular accident (CVA) Code(s): I69.398 - OTHER SEQUELAE OF CEREBRAL INFARCTION; R56.9 - UNSPECIFIED CONVULSIONS Status: Chronic - Plan cont current plan of care * medication reviewed as below * symptomatic treatment * transfer to stroke * will need bedside sitter * will adjust meds * may need placement. Review of Systems - Review of Systems Other: not reliable today as pt is confused and psychotic - Medications/Allergies Allergies/Adverse Reactions: Allergies Allergy/AdvReac Type Severity Reaction Status Date / Time ibuprofen Allergy Hives Verified 03/23/18 23:00 Medications: Current Medications Acetaminophen (Tylenol) 500 mg PO Q6H PRN PRN Reason: Mild Pain (1-3) Hydrocodone Bitart/Acetaminophen ([place] 5/325) 1 tab PO Q4H PRN PRN Reason: Moderate Pain (4-6) Last Admin: 03/26/18 20:56 Dose: 1 tab Al Hydroxide/Mg Hydroxide (Maalox) 30 ml PO QIDPRN PRN PRN Reason: Dyspepsia Amlodipine Besylate (Norvasc) 10 mg PO QAM [facility] Last Admin: 03/27/18 07:56 Dose: 10 mg Artificial Tears (Tears Naturale) 2 drop EA EYE PRN PRN PRN Reason: Dry Eyes Bisacodyl (Dulcolax) 10 mg [place] DAILYPRN PRN PRN Reason: Constipation Carvedilol (Coreg) 6.25 mg PO BID-[facility] Last Admin: 03/27/18 07:55 Dose: 6.25 mg Docusate Sodium (Colace) 100 mg PO BIDPRN PRN PRN Reason: Constipation Famotidine (Pepcid) 20 mg PO Q12HR [facility] Last Admin: 03/27/18 07:56 Dose: 20 mg Guaifenesin (Robitussin Sf) 200 mg PO Q4H PRN PRN Reason: Cough Hydralazine HCl (Apresoline) 25 mg PO TID [facility] Last Admin: 03/27/18 07:56 Dose: 25 mg Hydralazine HCl (Apresoline) 10 mg SLOW IVP Q4H PRN PRN Reason: SBP>160 Labetalol HCl (Normodyne) 10 mg SLOW IVP Q4H PRN PRN Reason: SBP > 150 or DBP > 90 Levetiracetam (Keppra) 500 mg PO BID [facility] Last Admin: 03/27/18 07:56 Dose: 500 mg Loperamide HCl (Imodium) 2 mg PO PRN PRN PRN Reason: Diarrhea/Loose Stools Loratadine (Claritin) 10 mg PO DAILYPRN PRN PRN Reason: Sinus Symptoms Magnesium Hydroxide (Milk Of Magnesium) 30 ml PO BIDPRN PRN PRN Reason: Constipation Mineral Oil/White Petrolatum (Eucerin Cream) 0 gm TOP BIDPRN PRN PRN Reason: Dry Skin Ondansetron HCl (Zofran) 4 mg IVP BIDPRN PRN PRN Reason: Nausea/Vomiting Last Admin: 03/24/18 17:47 Dose: 4 mg Ondansetron HCl (Zofran Odt) 4 mg PO Q6H PRN PRN Reason: Nausea/Vomiting Senna/Docusate Sodium (Senokot S) 2 tab PO BID PRN PRN Reason: Constipation Sodium Chloride (Flush - Normal Saline) 10 ml IVF PRN PRN PRN Reason: Saline Flush Sodium Chloride ([place] Nasal [place] 0.65%) 0 ml EA NARE QIDPRN PRN PRN Reason: Nasal Congestion Throat Lozenges (Cepastat Lozenges) 1 carlos PO Q2H PRN PRN Reason: Sore Throat Ziprasidone (Geodon) 20 mg IM Q4H PRN PRN Reason: Agitation Last Admin: 03/27/18 09:04 Dose: 20 mg
[2018-03-27 22:34] VITALS: BMI 38.1
[2018-03-28] MEDS: Amlodipine 10 MG TAB PO SCH (08:40)
[2018-03-28] MEDS: hydrALAZINE 25 MG TAB PO SCH ×3 (08:40→20:35)
[2018-03-28] MEDS: Famotidine 20 MG TAB PO SCH ×2 (08:40→20:35)
[2018-03-28] MEDS: levETIRAcetam 500 MG TAB PO SCH ×2 (08:41→20:35)
[2018-03-28] MEDS: Carvedilol 6.25 MG TAB PO SCH ×2 (08:41→16:34)
--- NOTE | 2018-03-28 09:10 | PRG ---
DATE OF SERVICE: 03/28/2018 I saw Marcos Hassan in the Stroke Unit this morning. He desperately wants to get out of the hospital. He is confused about how he got here, but he realizes he has intracerebral hemorrhage and that the ambulance brought him. He knows he is at [facility] this morning. He denies any need to have inpatient therapy and simply wants to go, but he can be redirected easily. Overnight, the T-max was 99.8, his blood pressures have been in the 120s to 140s. There is a left hemiparesis that is stable. His speech is relatively fluent. He pauses to think about words from [id number], but he communicates quite well. I do not find any new deficits. Plan for Mr. Hassan is to have him evaluated with physical therapy. He is unsafe for his activities of daily living. He will need inpatient rehabilitation. Otherwise, we can make arrangements for him to be discharged. Job ID: [id number] MTDD
--- NOTE | 2018-03-28 10:45 | PDOC.PN ---
- Subjective Encounter Start Date: 03/28/18 Encounter Start Time: 07:00 pt is doing ok, his bedside, she prefer him to go to rehab, vitals stable - Objective MAR Reviewed: Yes Vital Signs & Weight: Vital Signs (12 hours) Temp Pulse Resp BP BP Pulse Ox 03/28/18 08:41 134/101 H 03/28/18 08:40 98 134/101 H 03/28/18 08:00 98.3 F 94 20 134/101 H 98 03/28/18 03:56 99.8 F H 91 20 140/94 H 97 03/28/18 00:30 63 140/86 03/28/18 00:00 99.1 F 72 18 129/101 H 96 Weight Weight 236 lb 6 oz Most Recent Monitor Data Heart Rate from ECG 58 NIBP 147/85 NIBP BP-Mean 105 Respiration from ECG 15 SpO2 96 I&O: 03/27/18 03/28/18 03/29/18 06:59 06:59 06:59 Intake Total 2306 1375 Output Total 1895 1835 Balance 411 -460 Result Diagrams: 03/27/18 07:08 03/27/18 07:08 EKG Reviewed by me: Yes (nsr) Phys Exam - Physical Examination Constitutional: NAD HEENT: PERRLA, moist MMs, sclera anicteric Neck: no JVD, supple Respiratory: no wheezing, no rales, no rhonchi Cardiovascular: RRR, no significant murmur, no rub Gastrointestinal: soft, non-tender, no distention, positive bowel sounds Musculoskeletal: no edema, pulses present left side old weakness Psychiatric: normal affect Skin: no rash, normal turgor Dx/Plan (1) ICH (intracerebral hemorrhage) Code(s): I61.9 - NONTRAUMATIC INTRACEREBRAL HEMORRHAGE, UNSPECIFIED Status: Acute Qualifiers: Intracerebral hemorrhage etiology: nontraumatic Cerebral hemorrhage location: cerebral hemisphere, subcortical portion Laterality: right Qualified Code(s): I61.0 - Nontraumatic intracerebral hemorrhage in hemisphere, subcortical Comment: right basal ganglia, with previous h/o SAH (2) History of deep venous thrombosis or pulmonary embolus Code(s): [id number] - Status: Chronic (3) HTN (hypertension) Code(s): I10 - ESSENTIAL (PRIMARY) HYPERTENSION Status: Chronic Qualifiers: Hypertension type: essential hypertension Qualified Code(s): I10 - Essential (primary) hypertension Comment: (4) Obesity (BMI 30-39.9) Code(s): E66.9 - OBESITY, UNSPECIFIED Status: Chronic (5) Seizure as late effect of cerebrovascular accident (CVA) Code(s): I69.398 - OTHER SEQUELAE OF CEREBRAL INFARCTION; R56.9 - UNSPECIFIED CONVULSIONS Status: Chronic - Plan cont current plan of care, plan discussed w/ family, 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 Review of Systems - Review of Systems ENT: negative: Ear Pain, Ear Discharge, Nose Pain, Nose Discharge, Nose Congestion, Mouth Pain, Mouth Swelling, Throat Pain, Throat Swelling, Other Respiratory: negative: Cough, Dry, Shortness of Breath, Hemoptysis, SOB with Excertion, Pleuritic Pain, Sputum, Wheezing Cardiovascular: negative: chest pain, palpitations, orthopnea, paroxysmal nocturnal dyspnea, edema, light headedness, other Gastrointestinal: negative: Nausea, Vomiting, Abdominal Pain, Diarrhea, Constipation, Melena, Hematochezia, Other Genitourinary: negative: Dysuria, Frequency, Incontinence, Hematuria, Retention , Other Musculoskeletal: negative: Neck Pain, Shoulder Pain, Arm Pain, Back Pain, Hand Pain, Leg Pain, Foot Pain, Other - Medications/Allergies Allergies/Adverse Reactions: Allergies Allergy/AdvReac Type Severity Reaction Status Date / Time ibuprofen Allergy Hives Verified 03/23/18 23:00 Medications: Current Medications Acetaminophen (Tylenol) 500 mg PO Q6H PRN PRN Reason: Mild Pain (1-3) Al Hydroxide/Mg Hydroxide (Maalox) 30 ml PO QIDPRN PRN PRN Reason: Dyspepsia Amlodipine Besylate (Norvasc) 10 mg PO [facility] Last Admin: 03/28/18 08:40 Dose: 10 mg Artificial Tears (Tears Naturale) 2 drop EA EYE PRN PRN PRN Reason: Dry Eyes Bisacodyl (Dulcolax) 10 mg [place] DAILYPRN PRN PRN Reason: Constipation Carvedilol (Coreg) 6.25 mg PO BID-[facility] Last Admin: 03/28/18 08:41 Dose: 6.25 mg Docusate Sodium (Colace) 100 mg PO BIDPRN PRN PRN Reason: Constipation Famotidine (Pepcid) 20 mg PO Q12HR [facility] Last Admin: 03/28/18 08:40 Dose: 20 mg Guaifenesin (Robitussin Sf) 200 mg PO Q4H PRN PRN Reason: Cough Hydralazine HCl (Apresoline) 25 mg PO TID [facility] Last Admin: 03/28/18 08:40 Dose: 25 mg Hydralazine HCl (Apresoline) 10 mg SLOW IVP Q4H PRN PRN Reason: SBP>160 Labetalol HCl (Normodyne) 10 mg SLOW IVP Q4H PRN PRN Reason: SBP > 150 or DBP > 90 Levetiracetam (Keppra) 500 mg PO BID [facility] Last Admin: 03/28/18 08:41 Dose: 500 mg Loperamide HCl (Imodium) 2 mg PO PRN PRN PRN Reason: Diarrhea/Loose Stools Loratadine (Claritin) 10 mg PO DAILYPRN PRN PRN Reason: Sinus Symptoms Magnesium Hydroxide (Milk Of Magnesium) 30 ml PO BIDPRN PRN PRN Reason: Constipation Mineral Oil/White Petrolatum (Eucerin Cream) 0 gm TOP BIDPRN PRN PRN Reason: Dry Skin Ondansetron HCl (Zofran) 4 mg IVP BIDPRN PRN PRN Reason: Nausea/Vomiting Last Admin: 03/24/18 17:47 Dose: 4 mg Ondansetron HCl (Zofran Odt) 4 mg PO Q6H PRN PRN Reason: Nausea/Vomiting Senna/Docusate Sodium (Senokot S) 2 tab PO BID PRN PRN Reason: Constipation Sodium Chloride (Flush - Normal Saline) 10 ml IVF PRN PRN PRN Reason: Saline Flush Sodium Chloride ([place] Nasal [place] 0.65%) 0 ml EA NARE QIDPRN PRN PRN Reason: Nasal Congestion Throat Lozenges (Cepastat Lozenges) 1 acrlos PO Q2H PRN PRN Reason: Sore Throat Ziprasidone (Geodon) 20 mg IM Q4H PRN PRN Reason: Agitation Last Admin: 03/27/18 12:43 Dose: 20 mg
--- NOTE | 2018-03-29 08:39 | PRG ---
DATE OF SERVICE: 03/29/2018 This is a neurosurgery progress note. I saw Mr. Hassan in his hospital room this morning. He remains on the stroke floor. He is quite comfortable as I entered the room and he is working on his portable phone. Does not complain of significant headache and there is no new complaints since yesterday. The T-max that I see on his chart is 99.5 degrees Fahrenheit. On examination, he is awake. He is alert. He is answering questions appropriately. There is some slowness with language, but there is no overt dysphasia. The left hemiparesis he had continues, but it predates this admission. There is a left-sided decrease in sensation and neglect likely from hemorrhage involving the thalamus. There is no updated labs to review this morning. Mr. Hassan would likely benefit from inpatient rehabilitation and if the bed is available, he can be transferred today. Blood pressure control will be gamez going forward to prevent a future hemorrhage like this one. We will follow up in clinic with CT examination of the brain in 3 weeks and he should avoid blood thinners between now and then. Job ID: [id number]
--- NOTE | 2018-03-29 10:11 | PDOC.PN ---
- Subjective Encounter Start Date: 03/29/18 Encounter Start Time: 07:00 Patient seen and examined. No new complaints. No overnight events - Objective Resuscitation Status - Order Detail: 03/29/18 07:03 Resuscitation Status Routine Resuscitation Status: FULL: Full Resuscitation MAR Reviewed: Yes Vital Signs & Weight: Vital Signs (12 hours) Temp Pulse Resp BP Pulse Ox 03/29/18 08:00 99.4 F 78 16 123/91 H 97 03/29/18 04:41 99.5 F 64 14 113/82 98 03/29/18 00:40 98.8 F 72 15 123/77 97 Weight Weight 236 lb 6 oz Most Recent Monitor Data Heart Rate from ECG 58 NIBP 147/85 NIBP BP-Mean 105 Respiration from ECG 15 SpO2 96 I&O: 03/28/18 03/29/18 03/30/18 06:59 06:59 06:59 Intake Total 1375 Output Total 1835 200 Balance -460 -200 Result Diagrams: 03/27/18 07:08 03/27/18 07:08 EKG Reviewed by me: Yes (nsr) Phys Exam - Physical Examination Constitutional: NAD HEENT: PERRLA, moist MMs, sclera anicteric Neck: no JVD, supple Respiratory: no wheezing, no rales, no rhonchi Cardiovascular: RRR, no significant murmur, no rub Gastrointestinal: soft, non-tender, no distention, positive bowel sounds Musculoskeletal: no edema, pulses present left side weakness Psychiatric: normal affect Skin: no rash, normal turgor Dx/Plan (1) ICH (intracerebral hemorrhage) Code(s): I61.9 - NONTRAUMATIC INTRACEREBRAL HEMORRHAGE, UNSPECIFIED Status: Acute Qualifiers: Intracerebral hemorrhage etiology: nontraumatic Cerebral hemorrhage location: cerebral hemisphere, subcortical portion Laterality: right Qualified Code(s): I61.0 - Nontraumatic intracerebral hemorrhage in hemisphere, subcortical Comment: right basal ganglia, with previous h/o SAH (2) History of deep venous thrombosis or pulmonary embolus Code(s): [id number] - Status: Chronic (3) HTN (hypertension) Code(s): I10 - ESSENTIAL (PRIMARY) HYPERTENSION Status: Chronic Qualifiers: Hypertension type: essential hypertension Qualified Code(s): I10 - Essential (primary) hypertension Comment: (4) Obesity (BMI 30-39.9) Code(s): E66.9 - OBESITY, UNSPECIFIED Status: Chronic (5) Seizure as late effect of cerebrovascular accident (CVA) Code(s): I69.398 - OTHER SEQUELAE OF CEREBRAL INFARCTION; R56.9 - UNSPECIFIED CONVULSIONS Status: Chronic - Plan cont current plan of care, 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 Review of Systems - Review of Systems ENT: negative: Ear Pain, Ear Discharge, Nose Pain, Nose Discharge, Nose Congestion, Mouth Pain, Mouth Swelling, Throat Pain, Throat Swelling, Other Respiratory: negative: Cough, Dry, Shortness of Breath, Hemoptysis, SOB with Excertion, Pleuritic Pain, Sputum, Wheezing Cardiovascular: negative: chest pain, palpitations, orthopnea, paroxysmal nocturnal dyspnea, edema, light headedness, other Gastrointestinal: negative: Nausea, Vomiting, Abdominal Pain, Diarrhea, Constipation, Melena, Hematochezia, Other Genitourinary: negative: Dysuria, Frequency, Incontinence, Hematuria, Retention , Other Musculoskeletal: negative: Neck Pain, Shoulder Pain, Arm Pain, Back Pain, Hand Pain, Leg Pain, Foot Pain, Other Skin: negative: Rash, Lesions, Jaquan, Bruising, Other - Medications/Allergies Allergies/Adverse Reactions: Allergies Allergy/AdvReac Type Severity Reaction Status Date / Time ibuprofen Allergy Hives Verified 03/23/18 23:00 Medications: Current Medications Acetaminophen (Tylenol) 500 mg PO Q6H PRN PRN Reason: Mild Pain (1-3) Al Hydroxide/Mg Hydroxide (Maalox) 30 ml PO QIDPRN PRN PRN Reason: Dyspepsia Amlodipine Besylate (Norvasc) [facility] [place] Last Admin: 03/28/18 08:40 Dose: 10 mg Artificial Tears (Tears Naturale) 2 drop EA EYE PRN PRN PRN Reason: Dry Eyes Bisacodyl (Dulcolax) 10 mg [place] DAILYPRN PRN PRN Reason: Constipation Carvedilol (Coreg) 6.25 mg PO BID-[facility] Last Admin: 03/28/18 16:34 Dose: 6.25 mg Docusate Sodium (Colace) 100 mg PO BIDPRN PRN PRN Reason: Constipation Famotidine (Pepcid) 20 mg PO Q12HR [facility] Last Admin: 03/28/18 20:35 Dose: 20 mg Guaifenesin (Robitussin Sf) 200 mg PO Q4H PRN PRN Reason: Cough Hydralazine HCl (Apresoline) 25 mg PO TID [facility] Last Admin: 03/28/18 20:35 Dose: 25 mg Hydralazine HCl (Apresoline) 10 mg SLOW IVP Q4H PRN PRN Reason: SBP>160 Labetalol HCl (Normodyne) 10 mg SLOW IVP Q4H PRN PRN Reason: SBP > 150 or DBP > 90 Levetiracetam (Keppra) 500 mg PO BID [facility] Last Admin: 03/28/18 20:35 Dose: 500 mg Loperamide HCl (Imodium) 2 mg PO PRN PRN PRN Reason: Diarrhea/Loose Stools Loratadine (Claritin) 10 mg PO DAILYPRN PRN PRN Reason: Sinus Symptoms Magnesium Hydroxide (Milk Of Magnesium) 30 ml PO BIDPRN PRN PRN Reason: Constipation Mineral Oil/White Petrolatum (Eucerin Cream) 0 gm TOP BIDPRN PRN PRN Reason: Dry Skin Ondansetron HCl (Zofran) 4 mg IVP BIDPRN PRN PRN Reason: Nausea/Vomiting Last Admin: 03/24/18 17:47 Dose: 4 mg Ondansetron HCl (Zofran Odt) 4 mg PO Q6H PRN PRN Reason: Nausea/Vomiting Senna/Docusate Sodium (Senokot S) 2 tab PO BID PRN PRN Reason: Constipation Sodium Chloride (Flush - Normal Saline) 10 ml IVF PRN PRN PRN Reason: Saline Flush Sodium Chloride ([place] Nasal [place] 0.65%) 0 ml EA NARE QIDPRN PRN PRN Reason: Nasal Congestion Throat Lozenges (Cepastat Lozenges) 1 carlos PO Q2H PRN PRN Reason: Sore Throat Ziprasidone (Geodon) 20 mg IM Q4H PRN PRN Reason: Agitation Last Admin: 03/27/18 12:43 Dose: 20 mg
[2018-03-29] MEDS: Amlodipine 10 MG TAB PO SCH (10:47)
[2018-03-29] MEDS: hydrALAZINE 25 MG TAB PO SCH ×3 (10:48→23:20)
[2018-03-29] MEDS: levETIRAcetam 500 MG TAB PO SCH ×2 (10:48→23:20)
[2018-03-29] MEDS: Carvedilol 6.25 MG TAB PO SCH ×2 (10:48→18:57)
[2018-03-29] MEDS: Famotidine 20 MG TAB PO SCH ×2 (10:48→23:20)
--- NOTE | 2018-03-29 11:51 | DIS ---
DATE OF ADMISSION: 03/23/2018 DATE OF DISCHARGE: PRIMARY CARE PHYSICIAN: Lazaro Patel MD DISCHARGE DISPOSITION: Rehab. PRIMARY DISCHARGE DIAGNOSIS: Intracerebral hemorrhage. SECONDARY DISCHARGE DIAGNOSES: 1. History of subarachnoid hemorrhage with residual left upper and lower extremity weakness. 2. 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 3. History of deep vein thrombosis and pulmonary embolism. 4. Hypertension. 5. Obesity. PRIMARY PROCEDURE/OPERATION: Cerebral angiography. RADIOLOGICAL INVESTIGATIONS: CT brain on admission showed acute intraparenchymal and intraventricular hemorrhage on right upper basal ganglia 2.1 x 4.1 cm. Chest x-ray normal. Repeat CT brain showed stable finding. SIGNIFICANT LABS: WBC 5.6, hemoglobin 14.8, and platelet 194. INR 1.0. Sodium 137, creatinine 0.84. LFT normal. Cardiac enzyme negative. Urinalysis normal. Urine drug screen negative. Serum drug screen negative. DISCHARGE MEDICATIONS: 1. Amlodipine 10 mg p.o. daily. 2. Coreg 6.25 mg p.o. b.i.d. 3. Hydralazine 25 mg t.i.d. 4. Keppra 500 mg p.o. b.i.d. 5. Pepcid 20 mg p.o. b.i.d. CONTRAINDICATION: None. CODE STATUS: Full code. INPATIENT PROCESSING SPECIALIST: Dr. Angelo and group was following while in hospital. Pulmonary/Critical Care Group was following while in hospital. TEST RESULTS PENDING ON DISCHARGE: None. ALLERGIES: IBUPROFEN. DISCHARGE PLAN: Posthospital, the patient is planned for discharge to rehab facility when available. HOSPITAL COURSE: A 48-year-old male, who was admitted under Neurosurgeon. On admission, the patient was diagnosed with intracranial hemorrhage with intraventricular hemorrhage with right basal ganglion hemorrhage, which was related with hypertension. He was admitted in ICU. He was treated with ICH protocol treatment. Pulmonary and Critical Care Group was also following while in hospital. Sound Team was consulted for medical management. Upon stabilization, this patient was transferred to Stroke Floor. The patient was needing placement and that is why with help of case supervisor, we arranged a rehab placement. The patient's all medical problems remained stable. He cannot have any antiplatelet or anticoagulant therapy because of intracranial hemorrhage for at least 3 more weeks until he see a neurosurgeon as an outpatient basis and then it will be decided to start those medication. The patient does have left-sided weakness from previous stroke as well as he has underlying cognitive insufficiency secondary to likely underlying unknown psychiatric problem necessitating his rehab placement. Once we have these arranged, then the patient will be discharged there. Paperwork for discharge done. Discharge medication reconciliation done. The patient is seen and examined at bedside today. Please see my progress note from today for further detail. Job ID: [id number]
[2018-03-29] MEDS: Ziprasidone 20 MG VIAL IM PRN (23:20)
--- NOTE | 2018-03-30 07:06 | PRG ---
DATE OF SERVICE: 03/30/2018 This is a neurosurgery progress note. I saw Mr. Hassan in his hospital room this morning. He is resting comfortably as I entered the room. I woke him up and ask if physical therapy worked with him yesterday and he said yes. I asked him if he was evaluated for inpatient rehabilitation and he reports that he was, but he is not sure why he did not move. He has no specific complaints for me and does not ask me for anything this morning. I do not see any fevers among his recorded vital signs. I see a T-max of 99.7 degrees Fahrenheit. Blood pressures in the electronic chart ranged from the 110s to 140s. On examination, Mr. Hassan still has some left-sided sensory deficits and neglect. There are no new laboratory evaluations to review. Plan for Mr. Hassan is to move to inpatient rehabilitation. If he is unsafe for activities of daily living, he will need at least a few days in the rehab before we discharge him home. Followup will be in our clinic in a few weeks with a CT scan to ensure all his blood products have resolved. Job ID: [id number]
--- NOTE | 2018-03-30 09:29 | PDOC.PN ---
- Subjective Encounter Start Date: 03/30/18 Encounter Start Time: 07:00 Patient seen and examined. No new complaints. No overnight events this morning pt is resting and he is doing well overall - Objective Resuscitation Status - Order Detail: 03/29/18 07:03 Resuscitation Status Routine Resuscitation Status: FULL: Full Resuscitation MAR Reviewed: Yes Vital Signs & Weight: Vital Signs (12 hours) Temp Pulse Resp BP BP Pulse Ox 03/30/18 07:52 98.7 F 70 18 114/80 99 03/30/18 04:00 98.0 F 88 18 109/75 97 03/30/18 03:51 96.4 F L 75 16 109/75 97 03/30/18 00:00 98.9 F 73 18 142/89 H 96 03/29/18 23:20 96 120/90 Weight Weight 236 lb 6 oz Most Recent Monitor Data Heart Rate from ECG 58 NIBP 147/85 NIBP BP-Mean 105 Respiration from ECG 15 SpO2 96 I&O: 03/29/18 03/30/18 03/31/18 06:59 06:59 06:59 Intake Total 1128 Output Total 200 Balance -200 1128 Result Diagrams: 03/27/18 07:08 03/27/18 07:08 EKG Reviewed by me: Yes (nsr) Phys Exam - Physical Examination Constitutional: NAD HEENT: PERRLA, moist MMs, sclera anicteric Neck: no JVD, supple Respiratory: no wheezing, no rales, no rhonchi Cardiovascular: RRR, no significant murmur, no rub Gastrointestinal: soft, non-tender, no distention, positive bowel sounds Musculoskeletal: no edema, pulses present left side weakness Psychiatric: normal affect, A&O x 3 Skin: no rash, normal turgor Dx/Plan (1) ICH (intracerebral hemorrhage) Code(s): I61.9 - NONTRAUMATIC INTRACEREBRAL HEMORRHAGE, UNSPECIFIED Status: Acute Qualifiers: Intracerebral hemorrhage etiology: nontraumatic Cerebral hemorrhage location: cerebral hemisphere, subcortical portion Laterality: right Qualified Code(s): I61.0 - Nontraumatic intracerebral hemorrhage in hemisphere, subcortical Comment: right basal ganglia, with previous h/o SAH (2) History of deep venous thrombosis or pulmonary embolus Code(s): [id number] - Status: Chronic (3) HTN (hypertension) Code(s): I10 - ESSENTIAL (PRIMARY) HYPERTENSION Status: Chronic Qualifiers: Hypertension type: essential hypertension Qualified Code(s): I10 - Essential (primary) hypertension Comment: (4) Obesity (BMI 30-39.9) Code(s): E66.9 - OBESITY, UNSPECIFIED Status: Chronic (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 Review of Systems - Review of Systems ENT: negative: Ear Pain, Ear Discharge, Nose Pain, Nose Discharge, Nose Congestion, Mouth Pain, Mouth Swelling, Throat Pain, Throat Swelling, Other Respiratory: negative: Cough, Dry, Shortness of Breath, Hemoptysis, SOB with Excertion, Pleuritic Pain, Sputum, Wheezing Cardiovascular: negative: chest pain, palpitations, orthopnea, paroxysmal nocturnal dyspnea, edema, light headedness, other Gastrointestinal: negative: Nausea, Vomiting, Abdominal Pain, Diarrhea, Constipation, Melena, Hematochezia, Other Genitourinary: negative: Dysuria, Frequency, Incontinence, Hematuria, Retention , Other Musculoskeletal: negative: Neck Pain, Shoulder Pain, Arm Pain, Back Pain, Hand Pain, Leg Pain, Foot Pain, Other Skin: negative: Rash, Lesions, Jaquan, Bruising, Other - Medications/Allergies Allergies/Adverse Reactions: Allergies Allergy/AdvReac Type Severity Reaction Status Date / Time ibuprofen Allergy Hives Verified 03/23/18 23:00 Medications: Current Medications Acetaminophen (Tylenol) 500 mg PO Q6H PRN PRN Reason: Mild Pain (1-3) Al Hydroxide/Mg Hydroxide (Maalox) 30 ml PO QIDPRN PRN PRN Reason: Dyspepsia Amlodipine Besylate (Norvasc) 10 mg PO [facility] Last Admin: 03/29/18 10:47 Dose: 10 mg Artificial Tears (Tears Naturale) 2 drop EA EYE PRN PRN PRN Reason: Dry Eyes Bisacodyl (Dulcolax) 10 mg [place] DAILYPRN PRN PRN Reason: Constipation Carvedilol (Coreg) 6.25 mg PO BID-[facility] Last Admin: 03/29/18 18:57 Dose: 6.25 mg Docusate Sodium (Colace) 100 mg PO BIDPRN PRN PRN Reason: Constipation Famotidine (Pepcid) 20 mg PO Q12HR [facility] Last Admin: 03/29/18 23:20 Dose: 20 mg Guaifenesin (Robitussin Sf) 200 mg PO Q4H PRN PRN Reason: Cough Hydralazine HCl (Apresoline) 25 mg PO TID [facility] Last Admin: 03/29/18 23:20 Dose: 25 mg Hydralazine HCl (Apresoline) 10 mg SLOW IVP Q4H PRN PRN Reason: SBP>160 Labetalol HCl (Normodyne) 10 mg SLOW IVP Q4H PRN PRN Reason: SBP > 150 or DBP > 90 Levetiracetam (Keppra) 500 mg PO BID [facility] Last Admin: 03/29/18 23:20 Dose: 500 mg Loperamide HCl (Imodium) 2 mg PO PRN PRN PRN Reason: Diarrhea/Loose Stools Loratadine (Claritin) 10 mg PO DAILYPRN PRN PRN Reason: Sinus Symptoms Magnesium Hydroxide (Milk Of Magnesium) 30 ml PO BIDPRN PRN PRN Reason: Constipation Mineral Oil/White Petrolatum (Eucerin Cream) 0 gm TOP BIDPRN PRN PRN Reason: Dry Skin Ondansetron HCl (Zofran) 4 mg IVP BIDPRN PRN PRN Reason: Nausea/Vomiting Last Admin: 03/24/18 17:47 Dose: 4 mg Ondansetron HCl (Zofran Odt) 4 mg PO Q6H PRN PRN Reason: Nausea/Vomiting Senna/Docusate Sodium (Senokot S) 2 tab PO BID PRN PRN Reason: Constipation Sodium Chloride (Flush - Normal Saline) 10 ml IVF PRN PRN PRN Reason: Saline Flush Last Admin: 03/29/18 10:48 Dose: 10 ml Sodium Chloride ([place] Nasal [place] 0.65%) 0 ml EA NARE QIDPRN PRN PRN Reason: Nasal Congestion Throat Lozenges (Cepastat Lozenges) 1 carlos PO Q2H PRN PRN Reason: Sore Throat Ziprasidone (Geodon) 20 mg IM Q4H PRN PRN Reason: Agitation Last Admin: 03/29/18 23:20 Dose: 20 mg
[2018-03-30] MEDS: Amlodipine 10 MG TAB PO SCH (09:48)
[2018-03-30] MEDS: hydrALAZINE 25 MG TAB PO SCH ×3 (09:49→21:17)
[2018-03-30] MEDS: Famotidine 20 MG TAB PO SCH ×2 (09:49→21:18)
[2018-03-30] MEDS: levETIRAcetam 500 MG TAB PO SCH ×2 (09:49→21:18)
[2018-03-30] MEDS: Carvedilol 6.25 MG TAB PO SCH ×2 (09:49→17:33)
[2018-03-31] MEDS: Ziprasidone 20 MG VIAL IM PRN (02:26)
[2018-03-31] MEDS: Carvedilol 6.25 MG TAB PO SCH ×2 (08:24→15:26)
[2018-03-31] MEDS: Amlodipine 10 MG TAB PO SCH (08:24)
[2018-03-31] MEDS: levETIRAcetam 500 MG TAB PO SCH ×2 (08:25→21:02)
[2018-03-31] MEDS: hydrALAZINE 25 MG TAB PO SCH ×3 (08:25→21:02)
[2018-03-31] MEDS: Famotidine 20 MG TAB PO SCH ×2 (08:25→21:03)
--- NOTE | 2018-03-31 09:18 | PDOC.PN ---
- Subjective Encounter Start Date: 03/31/18 Encounter Start Time: 07:00 Patient seen and examined. No new complaints. No overnight events, no chest pain - Objective Resuscitation Status - Order Detail: 03/29/18 07:03 Resuscitation Status Routine Resuscitation Status: FULL: Full Resuscitation MAR Reviewed: Yes Vital Signs & Weight: Vital Signs (12 hours) Temp Pulse Resp BP BP Pulse Ox 03/31/18 08:25 78 122/95 H 03/31/18 08:24 78 122/95 H 03/31/18 07:52 98.4 F 78 16 122/95 H 98 03/31/18 05:43 84 109/87 Weight Weight 235 lb 14.4 oz Most Recent Monitor Data Heart Rate from ECG 58 NIBP 147/85 NIBP BP-Mean 105 Respiration from ECG 15 SpO2 96 I&O: 03/30/18 03/31/18 04/01/18 06:59 06:59 06:59 Intake Total 1128 831 300 Balance 1128 831 300 Result Diagrams: 03/27/18 07:08 03/27/18 07:08 EKG Reviewed by me: Yes (nsr) Phys Exam - Physical Examination Constitutional: NAD HEENT: PERRLA, moist MMs, sclera anicteric Neck: no JVD, supple Respiratory: no wheezing, no rales, no rhonchi Cardiovascular: RRR, no significant murmur, no rub Gastrointestinal: soft, non-tender, no distention, positive bowel sounds Musculoskeletal: no edema, pulses present left sided weakness Lymphatic: no nodes Psychiatric: normal affect, A&O x 3 Skin: no rash, normal turgor Dx/Plan (1) ICH (intracerebral hemorrhage) Code(s): I61.9 - NONTRAUMATIC INTRACEREBRAL HEMORRHAGE, UNSPECIFIED Status: Acute Qualifiers: Intracerebral hemorrhage etiology: nontraumatic Cerebral hemorrhage location: cerebral hemisphere, subcortical portion Laterality: right Qualified Code(s): I61.0 - Nontraumatic intracerebral hemorrhage in hemisphere, subcortical Comment: right basal ganglia, with previous h/o SAH (2) History of deep venous thrombosis or pulmonary embolus Code(s): [id number] - Status: Chronic (3) HTN (hypertension) Code(s): I10 - ESSENTIAL (PRIMARY) HYPERTENSION Status: Chronic Qualifiers: Hypertension type: essential hypertension Qualified Code(s): I10 - Essential (primary) hypertension Comment: (4) Obesity (BMI 30-39.9) Code(s): E66.9 - OBESITY, UNSPECIFIED Status: Chronic (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 * medication reviewed as below * symptomatic treatment * await rehab placement Review of Systems - Review of Systems ENT: negative: Ear Pain, Ear Discharge, Nose Pain, Nose Discharge, Nose Congestion, Mouth Pain, Mouth Swelling, Throat Pain, Throat Swelling, Other Respiratory: negative: Cough, Dry, Shortness of Breath, Hemoptysis, SOB with Excertion, Pleuritic Pain, Sputum, Wheezing Cardiovascular: negative: chest pain, palpitations, orthopnea, paroxysmal nocturnal dyspnea, edema, light headedness, other Gastrointestinal: negative: Nausea, Vomiting, Abdominal Pain, Diarrhea, Constipation, Melena, Hematochezia, Other Genitourinary: negative: Dysuria, Frequency, Incontinence, Hematuria, Retention , Other Musculoskeletal: negative: Neck Pain, Shoulder Pain, Arm Pain, Back Pain, Hand Pain, Leg Pain, Foot Pain, Other Skin: negative: Rash, Lesions, Jaquan, Bruising, Other Neurological: Weakness. negative: Numbness, Incoordination, Change in Speech, Confusion, Seizures, Other - Medications/Allergies Allergies/Adverse Reactions: Allergies Allergy/AdvReac Type Severity Reaction Status Date / Time ibuprofen Allergy Hives Verified 03/23/18 23:00 Medications: Current Medications Acetaminophen (Tylenol) 500 mg PO Q6H PRN PRN Reason: Mild Pain (1-3) Al Hydroxide/Mg Hydroxide (Maalox) 30 ml PO QIDPRN PRN PRN Reason: Dyspepsia Amlodipine Besylate ([facility]asc) [facility] [place] Last Admin: 03/31/18 08:24 Dose: 10 mg Artificial Tears (Tears Naturale) 2 drop EA EYE PRN PRN PRN Reason: Dry Eyes Bisacodyl (Dulcolax) 10 mg [place] DAILYPRN PRN PRN Reason: Constipation Carvedilol (Coreg) 6.25 mg PO BID-[facility] Last Admin: 03/31/18 08:24 Dose: 6.25 mg Docusate Sodium (Colace) 100 mg PO BIDPRN PRN PRN Reason: Constipation Famotidine (Pepcid) 20 mg PO Q12HR [facility] Last Admin: 03/31/18 08:25 Dose: 20 mg Guaifenesin (Robitussin Sf) 200 mg PO Q4H PRN PRN Reason: Cough Hydralazine HCl (Apresoline) 25 mg PO TID [facility] Last Admin: 03/31/18 08:25 Dose: 25 mg Hydralazine HCl (Apresoline) 10 mg SLOW IVP Q4H PRN PRN Reason: SBP>160 Labetalol HCl (Normodyne) 10 mg SLOW IVP Q4H PRN PRN Reason: SBP > 150 or DBP > 90 Levetiracetam (Keppra) 500 mg PO BID [facility] Last Admin: 03/31/18 08:25 Dose: 500 mg Loperamide HCl (Imodium) 2 mg PO PRN PRN PRN Reason: Diarrhea/Loose Stools Loratadine (Claritin) 10 mg PO DAILYPRN PRN PRN Reason: Sinus Symptoms Magnesium Hydroxide (Milk Of Magnesium) 30 ml PO BIDPRN PRN PRN Reason: Constipation Mineral Oil/White Petrolatum (Eucerin Cream) 0 gm TOP BIDPRN PRN PRN Reason: Dry Skin Ondansetron HCl (Zofran) 4 mg IVP BIDPRN PRN PRN Reason: Nausea/Vomiting Last Admin: 03/24/18 17:47 Dose: 4 mg Ondansetron HCl (Zofran Odt) 4 mg PO Q6H PRN PRN Reason: Nausea/Vomiting Senna/Docusate Sodium (Senokot S) 2 tab PO BID PRN PRN Reason: Constipation Sodium Chloride (Flush - Normal Saline) 10 ml IVF PRN PRN PRN Reason: Saline Flush Last Admin: 03/29/18 10:48 Dose: 10 ml Sodium Chloride ([place] Nasal [place] 0.65%) 0 ml EA NARE QIDPRN PRN PRN Reason: Nasal Congestion Throat Lozenges (Cepastat Lozenges) 1 carlos PO Q2H PRN PRN Reason: Sore Throat Ziprasidone (Geodon) 20 mg IM Q4H PRN PRN Reason: Agitation Last Admin: 03/31/18 02:26 Dose: 20 mg
--- NOTE | 2018-03-31 13:04 | EKG ---
Test Reason : Blood Pressure : / mmHG Vent. Rate : 070 BPM Atrial Rate : 070 BPM P-R Int : 190 ms QRS Dur : 092 ms QT Int : 398 ms P-R-T Axes : 042 013 004 degrees QTc Int : 429 ms Normal sinus rhythm Minimal voltage criteria for LVH, may be normal variant Borderline ECG Confirmed by WILTON DONAHUE ([id number]), newspaper editor managing LETA ALEXANDRE ([id number]) on 03/31/2018 1:04:04 PM Referred By: Confirmed By:WILTON DONAHUE
[2018-04-01] MEDS: Carvedilol 6.25 MG TAB PO SCH ×2 (08:36→16:25)
[2018-04-01] MEDS: Amlodipine 10 MG TAB PO SCH (08:36)
[2018-04-01] MEDS: levETIRAcetam 500 MG TAB PO SCH ×2 (08:37→20:45)
[2018-04-01] MEDS: Famotidine 20 MG TAB PO SCH ×2 (08:37→20:46)
[2018-04-01] MEDS: hydrALAZINE 25 MG TAB PO SCH ×3 (08:37→20:45)
--- NOTE | 2018-04-01 10:19 | PDOC.PN ---
- Subjective Encounter Start Date: 04/01/18 Encounter Start Time: 08:40 Patient seen and examined. No new complaints. No overnight events - Objective Resuscitation Status - Order Detail: 03/29/18 07:03 Resuscitation Status Routine Resuscitation Status: FULL: Full Resuscitation MAR Reviewed: Yes Vital Signs & Weight: Vital Signs (12 hours) Temp Pulse Resp BP BP Pulse Ox 04/01/18 08:37 67 149/89 H 04/01/18 08:36 67 149/89 H 04/01/18 08:00 99.0 F 67 18 149/89 H 99 04/01/18 04:00 98.8 F 77 18 157/99 H 97 04/01/18 00:00 98.8 F 79 18 135/86 98 Weight Weight 234 lb 6.4 oz Most Recent Monitor Data Heart Rate from ECG 58 NIBP 147/85 NIBP BP-Mean 105 Respiration from ECG 15 SpO2 96 I&O: 03/31/18 04/01/18 04/02/18 06:59 06:59 06:59 Intake Total 831 900 300 Balance 831 900 300 Result Diagrams: 03/27/18 07:08 03/27/18 07:08 EKG Reviewed by me: Yes (nsr) Phys Exam - Physical Examination Constitutional: NAD HEENT: PERRLA, moist MMs, sclera anicteric Neck: no JVD, supple Respiratory: no wheezing, no rales, no rhonchi Cardiovascular: RRR, no significant murmur, no rub Gastrointestinal: soft, non-tender, no distention, positive bowel sounds Musculoskeletal: no edema, pulses present left side weakness Lymphatic: no nodes Psychiatric: normal affect Skin: no rash, normal turgor Dx/Plan (1) ICH (intracerebral hemorrhage) Code(s): I61.9 - NONTRAUMATIC INTRACEREBRAL HEMORRHAGE, UNSPECIFIED Status: Acute Qualifiers: Intracerebral hemorrhage etiology: nontraumatic Cerebral hemorrhage location: cerebral hemisphere, subcortical portion Laterality: right Qualified Code(s): I61.0 - Nontraumatic intracerebral hemorrhage in hemisphere, subcortical Comment: right basal ganglia, with previous h/o SAH (2) History of deep venous thrombosis or pulmonary embolus Code(s): MBH2458 - Status: Chronic (3) HTN (hypertension) Code(s): I10 - ESSENTIAL (PRIMARY) HYPERTENSION Status: Chronic Qualifiers: Hypertension type: essential hypertension Qualified Code(s): I10 - Essential (primary) hypertension Comment: (4) Obesity (BMI 30-39.9) Code(s): E66.9 - OBESITY, UNSPECIFIED Status: Chronic (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 Review of Systems - Review of Systems ENT: negative: Ear Pain, Ear Discharge, Nose Pain, Nose Discharge, Nose Congestion, Mouth Pain, Mouth Swelling, Throat Pain, Throat Swelling, Other Respiratory: negative: Cough, Dry, Shortness of Breath, Hemoptysis, SOB with Excertion, Pleuritic Pain, Sputum, Wheezing Cardiovascular: negative: chest pain, palpitations, orthopnea, paroxysmal nocturnal dyspnea, edema, light headedness, other Gastrointestinal: negative: Nausea, Vomiting, Abdominal Pain, Diarrhea, Constipation, Melena, Hematochezia, Other Genitourinary: negative: Dysuria, Frequency, Incontinence, Hematuria, Retention , Other Musculoskeletal: negative: Neck Pain, Shoulder Pain, Arm Pain, Back Pain, Hand Pain, Leg Pain, Foot Pain, Other - Medications/Allergies Allergies/Adverse Reactions: Allergies Allergy/AdvReac Type Severity Reaction Status Date / Time ibuprofen Allergy Hives Verified 03/23/18 23:00 Medications: Current Medications Acetaminophen (Tylenol) 500 mg PO Q6H PRN PRN Reason: Mild Pain (1-3) Last Admin: 04/01/18 08:37 Dose: 500 mg Al Hydroxide/Mg Hydroxide (Maalox) 30 ml PO QIDPRN PRN PRN Reason: Dyspepsia Amlodipine Besylate (Norvasc) 10 mg PO [facility] Last Admin: 04/01/18 08:36 Dose: 10 mg Artificial Tears (Tears Naturale) 2 drop EA EYE PRN PRN PRN Reason: Dry Eyes Bisacodyl (Dulcolax) 10 mg [place] DAILYPRN PRN PRN Reason: Constipation Carvedilol (Coreg) 6.25 mg PO [facility]ID[facility] Last Admin: 04/01/18 08:36 Dose: 6.25 mg Docusate Sodium (Colace) 100 mg PO BIDPRN PRN PRN Reason: Constipation Famotidine (Pepcid) 20 mg PO Q12HR [facility] Last Admin: 04/01/18 08:37 Dose: 20 mg Guaifenesin (Robitussin Sf) 200 mg PO Q4H PRN PRN Reason: Cough Hydralazine HCl (Apresoline) 25 mg PO TID [facility] Last Admin: 04/01/18 08:37 Dose: 25 mg Hydralazine HCl (Apresoline) 10 mg SLOW IVP Q4H PRN PRN Reason: SBP>160 Labetalol HCl (Normodyne) 10 mg SLOW IVP Q4H PRN PRN Reason: SBP > 150 or DBP > 90 Levetiracetam (Keppra) 500 mg PO BID [facility] Last Admin: 04/01/18 08:37 Dose: 500 mg Loperamide HCl (Imodium) 2 mg PO PRN PRN PRN Reason: Diarrhea/Loose Stools Loratadine (Claritin) 10 mg PO DAILYPRN PRN PRN Reason: Sinus Symptoms Magnesium Hydroxide (Milk Of Magnesium) 30 ml PO BIDPRN PRN PRN Reason: Constipation Mineral Oil/White Petrolatum (Eucerin Cream) 0 gm TOP BIDPRN PRN PRN Reason: Dry Skin Ondansetron HCl (Zofran) 4 mg IVP BIDPRN PRN PRN Reason: Nausea/Vomiting Last Admin: 03/24/18 17:47 Dose: 4 mg Ondansetron HCl (Zofran Odt) 4 mg PO Q6H PRN PRN Reason: Nausea/Vomiting Senna/Docusate Sodium (Senokot S) 2 tab PO BID PRN PRN Reason: Constipation Sodium Chloride (Flush - Normal Saline) 10 ml IVF PRN PRN PRN Reason: Saline Flush Last Admin: 03/29/18 10:48 Dose: 10 ml Sodium Chloride ([place] Nasal [place] 0.65%) 0 ml EA NARE QIDPRN PRN PRN Reason: Nasal Congestion Throat Lozenges (Cepastat Lozenges) 1 carlos PO Q2H PRN PRN Reason: Sore Throat Ziprasidone (Geodon) 20 mg IM Q4H PRN PRN Reason: Agitation Last Admin: 03/31/18 02:26 Dose: 20 mg
[2018-04-02] MEDS: Amlodipine 10 MG TAB PO SCH (08:11)
[2018-04-02] MEDS: levETIRAcetam 500 MG TAB PO SCH ×2 (08:11→22:09)
[2018-04-02] MEDS: hydrALAZINE 25 MG TAB PO SCH ×3 (08:12→22:11)
[2018-04-02] MEDS: Carvedilol 6.25 MG TAB PO SCH ×2 (08:12→16:43)
[2018-04-02] MEDS: Famotidine 20 MG TAB PO SCH ×2 (08:12→22:09)
--- NOTE | 2018-04-02 10:24 | PDOC.PN ---
- Subjective Encounter Start Date: 04/02/18 Encounter Start Time: 07:10 Patient seen and examined. No new complaints. No overnight events - Objective Resuscitation Status - Order Detail: 03/29/18 07:03 Resuscitation Status Routine Resuscitation Status: FULL: Full Resuscitation MAR Reviewed: Yes Vital Signs & Weight: Vital Signs (12 hours) Temp Pulse Resp BP BP Pulse Ox 04/02/18 08:12 78 122/89 04/02/18 08:11 78 04/02/18 07:30 98.7 F 78 18 116/86 98 04/02/18 05:35 98.5 F 80 18 132/88 99 04/02/18 00:22 99 F 87 20 130/88 95 Weight Weight 236 lb 8 oz Most Recent Monitor Data Heart Rate from ECG 58 NIBP 147/85 NIBP BP-Mean 105 Respiration from ECG 15 SpO2 96 I&O: 04/01/18 04/02/18 04/03/18 06:59 06:59 06:59 Intake Total 900 900 Output Total 300 Balance 900 600 Result Diagrams: 03/27/18 07:08 03/27/18 07:08 EKG Reviewed by me: Yes (nsr) Phys Exam - Physical Examination Constitutional: NAD HEENT: PERRLA, moist MMs, sclera anicteric Neck: no JVD, supple Respiratory: no wheezing, no rales, no rhonchi Cardiovascular: RRR, no significant murmur, no rub Gastrointestinal: soft, non-tender, no distention, positive bowel sounds Musculoskeletal: no edema, pulses present left side weakness Psychiatric: normal affect, A&O x 3 Skin: no rash, normal turgor Dx/Plan (1) ICH (intracerebral hemorrhage) Code(s): I61.9 - NONTRAUMATIC INTRACEREBRAL HEMORRHAGE, UNSPECIFIED Status: Acute Qualifiers: Intracerebral hemorrhage etiology: nontraumatic Cerebral hemorrhage location: cerebral hemisphere, subcortical portion Laterality: right Qualified Code(s): I61.0 - Nontraumatic intracerebral hemorrhage in hemisphere, subcortical Comment: right basal ganglia, with previous h/o SAH (2) History of deep venous thrombosis or pulmonary embolus Code(s): [id number] - Status: Chronic (3) HTN (hypertension) Code(s): I10 - ESSENTIAL (PRIMARY) HYPERTENSION Status: Chronic Qualifiers: Hypertension type: essential hypertension Qualified Code(s): I10 - Essential (primary) hypertension Comment: (4) Obesity (BMI 30-39.9) Code(s): E66.9 - OBESITY, UNSPECIFIED Status: Chronic (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 Review of Systems - Review of Systems ENT: negative: Ear Pain, Ear Discharge, Nose Pain, Nose Discharge, Nose Congestion, Mouth Pain, Mouth Swelling, Throat Pain, Throat Swelling, Other Respiratory: negative: Cough, Dry, Shortness of Breath, Hemoptysis, SOB with Excertion, Pleuritic Pain, Sputum, Wheezing Cardiovascular: negative: chest pain, palpitations, orthopnea, paroxysmal nocturnal dyspnea, edema, light headedness, other Gastrointestinal: negative: Nausea, Vomiting, Abdominal Pain, Diarrhea, Constipation, Melena, Hematochezia, Other Genitourinary: negative: Dysuria, Frequency, Incontinence, Hematuria, Retention , Other Musculoskeletal: negative: Neck Pain, Shoulder Pain, Arm Pain, Back Pain, Hand Pain, Leg Pain, Foot Pain, Other - Medications/Allergies Allergies/Adverse Reactions: Allergies Allergy/AdvReac Type Severity Reaction Status Date / Time ibuprofen Allergy Hives Verified 03/23/18 23:00 Medications: Current Medications Acetaminophen (Tylenol) 500 mg PO Q6H PRN PRN Reason: Mild Pain (1-3) Last Admin: 04/01/18 08:37 Dose: 500 mg Al Hydroxide/Mg Hydroxide (Maalox) 30 ml PO QIDPRN PRN PRN Reason: Dyspepsia Amlodipine Besylate (Norvasc) 10 mg PO [facility] Last Admin: 04/02/18 08:11 Dose: 10 mg Artificial Tears (Tears Naturale) 2 drop EA EYE PRN PRN PRN Reason: Dry Eyes Bisacodyl (Dulcolax) 10 mg [place] DAILYPRN PRN PRN Reason: Constipation Carvedilol (Coreg) 6.25 mg PO BID-[facility] Last Admin: 04/02/18 08:12 Dose: 6.25 mg Docusate Sodium (Colace) 100 mg PO BIDPRN PRN PRN Reason: Constipation Famotidine (Pepcid) 20 mg PO Q12HR [facility] Last Admin: 04/02/18 08:12 Dose: 20 mg Guaifenesin (Robitussin Sf) 200 mg PO Q4H PRN PRN Reason: Cough Hydralazine HCl (Apresoline) 25 mg PO TID [facility] Last Admin: 04/02/18 08:12 Dose: 25 mg Hydralazine HCl (Apresoline) 10 mg SLOW IVP Q4H PRN PRN Reason: SBP>160 Labetalol HCl (Normodyne) 10 mg SLOW IVP Q4H PRN PRN Reason: SBP > 150 or DBP > 90 Levetiracetam (Keppra) 500 mg PO BID [facility] Last Admin: 04/02/18 08:11 Dose: 500 mg Loperamide HCl (Imodium) 2 mg PO PRN PRN PRN Reason: Diarrhea/Loose Stools Loratadine (Claritin) 10 mg PO DAILYPRN PRN PRN Reason: Sinus Symptoms Magnesium Hydroxide (Milk Of Magnesium) 30 ml PO BIDPRN PRN PRN Reason: Constipation Mineral Oil/White Petrolatum (Eucerin Cream) 0 gm TOP BIDPRN PRN PRN Reason: Dry Skin Ondansetron HCl (Zofran) 4 mg IVP BIDPRN PRN PRN Reason: Nausea/Vomiting Last Admin: 03/24/18 17:47 Dose: 4 mg Ondansetron HCl (Zofran Odt) 4 mg PO Q6H PRN PRN Reason: Nausea/Vomiting Senna/Docusate Sodium (Senokot S) 2 tab PO BID PRN PRN Reason: Constipation Sodium Chloride (Flush - Normal Saline) 10 ml IVF PRN PRN PRN Reason: Saline Flush Last Admin: 03/29/18 10:48 Dose: 10 ml Sodium Chloride ([place] Nasal [place] 0.65%) 0 ml EA NARE QIDPRN PRN PRN Reason: Nasal Congestion Throat Lozenges (Cepastat Lozenges) 1 carlos PO Q2H PRN PRN Reason: Sore Throat Ziprasidone (Geodon) 20 mg IM Q4H PRN PRN Reason: Agitation Last Admin: 03/31/18 02:26 Dose: 20 mg
[2018-04-03] MEDS: hydrALAZINE 25 MG TAB PO SCH ×3 (08:46→20:13)
[2018-04-03] MEDS: Amlodipine 10 MG TAB PO SCH (08:46)
[2018-04-03] MEDS: levETIRAcetam 500 MG TAB PO SCH ×2 (08:46→20:13)
[2018-04-03] MEDS: Carvedilol 6.25 MG TAB PO SCH ×2 (08:46→15:48)
[2018-04-03] MEDS: Famotidine 20 MG TAB PO SCH ×2 (08:46→20:13)
--- NOTE | 2018-04-03 10:31 | PDOC.PN ---
- Subjective Encounter Start Date: 04/03/18 Encounter Start Time: 07:40 Patient seen and examined. No new complaints. No overnight events - Objective Resuscitation Status - Order Detail: 03/29/18 07:03 Resuscitation Status Routine Resuscitation Status: FULL: Full Resuscitation MAR Reviewed: Yes Vital Signs & Weight: Vital Signs (12 hours) Temp Pulse Resp BP BP Pulse Ox 04/03/18 08:46 68 114/87 04/03/18 07:44 98.5 F 68 16 126/89 98 04/03/18 04:00 98.2 F 70 18 122/88 97 04/03/18 00:00 98.6 F 83 18 116/81 96 Weight Weight 237 lb 9.6 oz Most Recent Monitor Data Heart Rate from ECG 58 NIBP 147/85 NIBP BP-Mean 105 Respiration from ECG 15 SpO2 96 I&O: 04/02/18 04/03/18 04/04/18 06:59 06:59 06:59 Intake Total 900 Output Total 300 275 Balance 600 -275 Result Diagrams: 03/27/18 07:08 03/27/18 07:08 EKG Reviewed by me: Yes (nsr) Phys Exam - Physical Examination Constitutional: NAD HEENT: PERRLA, moist MMs, sclera anicteric Neck: no JVD, supple Respiratory: no wheezing, no rales, no rhonchi Cardiovascular: RRR, no significant murmur, no rub Gastrointestinal: soft, non-tender, no distention, positive bowel sounds Musculoskeletal: no edema, pulses present left side weakness+ Lymphatic: no nodes Psychiatric: normal affect, A&O x 3 Skin: no rash, normal turgor Dx/Plan (1) ICH (intracerebral hemorrhage) Code(s): I61.9 - NONTRAUMATIC INTRACEREBRAL HEMORRHAGE, UNSPECIFIED Status: Acute Qualifiers: Intracerebral hemorrhage etiology: nontraumatic Cerebral hemorrhage location: cerebral hemisphere, subcortical portion Laterality: right Qualified Code(s): I61.0 - Nontraumatic intracerebral hemorrhage in hemisphere, subcortical Comment: right basal ganglia, with previous h/o SAH (2) History of deep venous thrombosis or pulmonary embolus Code(s): [id number] - Status: Chronic (3) HTN (hypertension) Code(s): I10 - ESSENTIAL (PRIMARY) HYPERTENSION Status: Chronic Qualifiers: Hypertension type: essential hypertension Qualified Code(s): I10 - Essential (primary) hypertension Comment: (4) Obesity (BMI 30-39.9) Code(s): E66.9 - OBESITY, UNSPECIFIED Status: Chronic (5) Seizure as late effect of cerebrovascular accident (CVA) Code(s): I69.398 - OTHER SEQUELAE OF CEREBRAL INFARCTION; R56.9 - UNSPECIFIED CONVULSIONS Status: Chronic - Plan cont current plan of care * medication reviewed as below * symptomatic treatment * await placement * medically stable. Review of Systems - Review of Systems ENT: negative: Ear Pain, Ear Discharge, Nose Pain, Nose Discharge, Nose Congestion, Mouth Pain, Mouth Swelling, Throat Pain, Throat Swelling, Other Respiratory: negative: Cough, Dry, Shortness of Breath, Hemoptysis, SOB with Excertion, Pleuritic Pain, Sputum, Wheezing Cardiovascular: negative: chest pain, palpitations, orthopnea, paroxysmal nocturnal dyspnea, edema, light headedness, other Gastrointestinal: negative: Nausea, Vomiting, Abdominal Pain, Diarrhea, Constipation, Melena, Hematochezia, Other Genitourinary: negative: Dysuria, Frequency, Incontinence, Hematuria, Retention , Other Musculoskeletal: negative: Neck Pain, Shoulder Pain, Arm Pain, Back Pain, Hand Pain, Leg Pain, Foot Pain, Other - Medications/Allergies Allergies/Adverse Reactions: Allergies Allergy/AdvReac Type Severity Reaction Status Date / Time ibuprofen Allergy Hives Verified 03/23/18 23:00 Medications: Current Medications Acetaminophen (Tylenol) 500 mg PO Q6H PRN PRN Reason: Mild Pain (1-3) Last Admin: 04/01/18 08:37 Dose: 500 mg Al Hydroxide/Mg Hydroxide (Maalox) 30 ml PO QIDPRN PRN PRN Reason: Dyspepsia Amlodipine Besylate (Norvasc) 10 mg PO [facility] Last Admin: 04/03/18 08:46 Dose: 10 mg Artificial Tears (Tears Naturale) 2 drop EA EYE PRN PRN PRN Reason: Dry Eyes Bisacodyl (Dulcolax) 10 mg [place] DAILYPRN PRN PRN Reason: Constipation [facility] Last Admin: 04/03/18 08:46 Dose: 6.25 mg Docusate Sodium (Colace) 100 mg PO BIDPRN PRN PRN Reason: Constipation Famotidine (Pepcid) 20 mg PO Q12HR [facility] Last Admin: 04/03/18 08:46 Dose: 20 mg Guaifenesin (Robitussin Sf) 200 mg PO Q4H PRN PRN Reason: Cough Hydralazine HCl (Apresoline) 25 mg PO TID [facility] Last Admin: 04/03/18 08:46 Dose: 25 mg Hydralazine HCl (Apresoline) 10 mg SLOW IVP Q4H PRN PRN Reason: SBP>160 Labetalol HCl (Normodyne) 10 mg SLOW IVP Q4H PRN PRN Reason: SBP > 150 or DBP > 90 Levetiracetam (Keppra) 500 mg PO BID [facility] Last Admin: 04/03/18 08:46 Dose: 500 mg Loperamide HCl (Imodium) 2 mg PO PRN PRN PRN Reason: Diarrhea/Loose Stools Loratadine (Claritin) 10 mg PO DAILYPRN PRN PRN Reason: Sinus Symptoms Magnesium Hydroxide (Milk Of Magnesium) 30 ml PO BIDPRN PRN PRN Reason: Constipation Mineral Oil/White Petrolatum (Eucerin Cream) 0 gm TOP BIDPRN PRN PRN Reason: Dry Skin Ondansetron HCl (Zofran) 4 mg IVP BIDPRN PRN PRN Reason: Nausea/Vomiting Last Admin: 03/24/18 17:47 Dose: 4 mg Ondansetron HCl (Zofran Odt) 4 mg PO Q6H PRN PRN Reason: Nausea/Vomiting Senna/Docusate Sodium (Senokot S) 2 tab PO BID PRN PRN Reason: Constipation Sodium Chloride (Flush - Normal Saline) 10 ml IVF PRN PRN PRN Reason: Saline Flush Last Admin: 03/29/18 10:48 Dose: 10 ml Sodium Chloride ([place] Nasal [place] 0.65%) 0 ml EA NARE QIDPRN PRN PRN Reason: Nasal Congestion Throat Lozenges (Cepastat Lozenges) 1 carlos PO Q2H PRN PRN Reason: Sore Throat Ziprasidone (Geodon) 20 mg IM Q4H PRN PRN Reason: Agitation Last Admin: 03/31/18 02:26 Dose: 20 mg
--- NOTE | 2018-04-03 15:20 | DIS ---
DATE OF ADMISSION: 03/23/2018 DATE OF DISCHARGE: ADDENDUM: Please see my discharge summary dictated on March 29, 2018. The patient stayed in hospital for extra few days because his insurance awaited for approval to go to rehab and bed availability at rehab. Finally today, the patient has approval to go to rehab and bed is available. During this period, since my last discharge summary, there was no significant change happened while in hospital. The patient is seen and examined at bedside today. Please see my progress note from today for further detail. Job ID: [id number]
[2018-04-03 15:55] VITALS: TEMP 97.6
[2018-04-03 20:14] VITALS: BP 108/73
== END 2018-04-03 20:20 | DRG 65 ==
LOC: ERS 19:36 → CCU 22:02 → 2SE 03-27 20:30
PROVIDERS: ADMIT Neurological Surgery; ATTEND Neurological Surgery
PROC: B3131ZZ Fluoroscopy of Right Common Carotid Artery using Low Osmolar Contrast (ICD-10-PCS; principal; 2018-03-26)
DX: I61.0 Nontraumatic intracerebral hemorrhage in hemisphere, subcortical (principal); I69.354 Hemiplegia and hemiparesis following cerebral infarction affecting left non-dominant side; R29.810 Facial weakness; I10 Essential (primary) hypertension; F17.210 Nicotine dependence, cigarettes, uncomplicated; F12.10 Cannabis abuse, uncomplicated; I69.398 Other sequelae of cerebral infarction; R56.9 Unspecified convulsions; E66.9 Obesity, unspecified; Z68.38 Body mass index [BMI] 38.0-38.9, adult; Z86.718 Personal history of other venous thrombosis and embolism; Z86.711 Personal history of pulmonary embolism
CPT/HCPCS: 36216; 36218; 36415; 36416; 70450; 71045; 80048; 80053; 80306; 80307; 81003; 83735; 84484; 85025; 85610; 85730; 93005; 93010; 94760; 96365; 96367; J1642; J1644; J1953; J2001; J2270; J2405; J3486; J7050; S0028

== ENCOUNTER 2018-05-17 09:16 | Emergency (ER) | payer BC ==
[2018-05-17] MEDS ORDERED: ISOVUE-370 76%-LOCM 1 ML ONE (09:48)
[2018-05-17 10:27] LABS: #Eosinphils 0.2 thou/uL (0.0-0.7); #Lymphocytes 1.4 thou/uL (1.20-3.40); #Monocytes 0.4 thou/uL (0.11-0.59); #Neutrophils 1.5 thou/uL (1.40-6.50); %Eosinophils 6.2 % (0.0-10.0); %Lymphocytes 38.6 % (21.0-51.0); %Monocytes 11.9 % (0.0-10.0); %Neutrophils 42.2 % (42.0-75.0); Hemoglobin 14.3 g/dL (14.0-18.0); Mean Corpuscular HGB CONC 31.6 g/dL (32.0-36.0); Mean Corpuscular Hemoglobin 30.5 pg (27.0-31.0); Mean Corpuscular Volume 96.6 fL (78.0-98.0); Mean Platelet Volume 8.8 fL (7.4-10.4); Platelet Count 245 thou/uL (130-400); Red Blood Cell (RBC) Count 4.68 mill/uL (4.70-6.10); White Blood Cell (WBC) Count 3.5 thou/uL (4.8-10.8)
--- NOTE | 2018-05-17 10:28 | RAD ---
PORTABLE CHEST: Date: 05/17/18 HISTORY: Heart palpitations. Shortness of breath. COMPARISON: 03/23/18. FINDINGS: Heart size and mediastinum are within normal limits. The lungs are clear of infiltrate. Right side ce ntral line is in place. IMPRESSION: No active intrathoracic disease. POS: TPC
[2018-05-17 11:01] LABS: ALT (SGPT) 10 U/L (8-55); AST (SGOT) 12 U/L (5-34); Albumin 3.8 g/dL (3.5-5.0); Alkaline Phosphatase 132 U/L (40-150); Anion Gap 13 mmol/L (10-20); BUN (Urea Nitrogen) 11 mg/dL (8.9-20.6); Bilirubin, Total 0.4 mg/dL (0.2-1.2); Calc. Creatinine Clearance 0 mL/min (70-130); Calcium 9.6 mg/dL (7.8-10.44); Carbon Dioxide 24 mmol/L (22-29); Chloride 109 mmol/L (98-107); Estimated GFR-MDRD Greater than 90; Globulin 3.5 g/dL (2.4-3.5); Glucose 79 mg/dL (70-105); Lipase 19 U/L (8-78); Potassium 3.8 mmol/L (3.5-5.1); Protein, Total 7.3 g/dL (6.0-8.3); Sodium 142 mmol/L (136-145)
--- NOTE | 2018-05-17 11:38 | ULT ---
LEFT LOWER EXTREMITY VENOUS DOPPLER: History: Edema. Comparison: None. Technique: Real-time grayscale, color doppler, and spectral analysis of the left lower extremity veno us system was performed. The common femoral, femoral, proximal portion of the greater saphenous and d eep femoral vein as well as the popliteal and posterior tibial veins were interrogated. FINDINGS: There is normal flow, augmentation, and compression. IMPRESSION: No deep venous thrombosis. POS: [facility]
--- NOTE | 2018-05-17 11:50 | CT ---
CT PULMONARY ANGIOGRAM WITH IV CONTRAST AND 3D POSTPROCESSING: HISTORY: Shortness of breath, previous history of PE. FINDINGS: Comparison is made to the exam of 07/05/2017. There is good contrast opacification of the pulmonary arterial vasculature without filling defects to suggest pulmonary embolism. No aneurysmal dilatation of the thoracic aorta is seen. No pleural or pericardial effusions are identified. No pneumothoraces, lobar consolidation, or lung masses are zelda ntified. There are mild degenerative changes in the spine. IMPRESSION: No CT evidence of pulmonary embolism. POS: C
--- NOTE | 2018-05-19 19:29 | EKG ---
Test Reason : ER Blood Pressure : / mmHG Vent. Rate : 053 BPM Atrial Rate : 053 BPM P-R Int : 184 ms QRS Dur : 098 ms QT Int : 422 ms P-R-T Axes : 035 023 002 degrees QTc Int : 395 ms Sinus bradycardia Cannot rule out Anterior infarct , age undetermined Abnormal ECG Confirmed by MILAGRO ALCANTARA D.O. ([id number]), magazine editor GREGORIA ALFRED ([id number] on 05/19/2018 7:29:21 PM Referred By: Confirmed By:MILAGRO ALCANTARA D.O.
== END 2018-05-17 12:22 | disposition home or self-care (01) ==
LOC: ERS 09:16
DX: R00.2 Palpitations (principal); R06.02 Shortness of breath; R60.0 Localized edema; I10 Essential (primary) hypertension; Z79.899 Other long term (current) drug therapy
CPT/HCPCS: 36415; 71045; 71275; 80053; 83690; 83880; 84484; 85025; 93005; Q9966

== ENCOUNTER 2018-07-08 17:21 | Observation (INO) | payer BC ==
[~2018-07-08 17:21] MED LIST: ISOVUE-370 76%-LOCM 1 ML ONE
--- NOTE | 2018-07-08 18:22 | RAD ---
XR Chest 1 View Portable HISTORY: Chest pain COMPARISON: 05/17/2018 FINDINGS: The heart size is normal. The lungs are well expanded without focal areas of consolidation, pneumothorax or pleural effusions. Right-sided [employer]ING [employer] shunt catheter is again seen IMPRESSION: No radiographic evidence of acute cardiopulmonary process.
[2018-07-08 18:23] LABS: #Eosinphils 0.2 thou/uL (0.0-0.7); #Lymphocytes 1.8 thou/uL (1.20-3.40); #Monocytes 0.4 thou/uL (0.11-0.59); #Neutrophils 1.3 thou/uL (1.40-6.50); %Basophils 1.1 % (0.0-1.0); %Eosinophils 5.2 % (0.0-10.0); %Lymphocytes 47.9 % (21.0-51.0); %Monocytes 10.2 % (0.0-10.0); %Neutrophils 35.7 % (42.0-75.0); Hemoglobin 14.5 g/dL (14.0-18.0); Mean Corpuscular Hemoglobin 31.1 pg (27.0-31.0); Mean Corpuscular Volume 94.3 fL (78.0-98.0); Mean Platelet Volume 9.3 fL (7.4-10.4); Platelet Count 227 thou/uL (130-400); RBC Distribution Width 13.5 % (11.5-14.5); Red Blood Cell (RBC) Count 4.67 mill/uL (4.70-6.10); White Blood Cell (WBC) Count 3.8 thou/uL (4.8-10.8)
[2018-07-08 18:51] LABS: ALT (SGPT) 11 U/L (8-55); AST (SGOT) 14 U/L (5-34); Albumin 3.8 g/dL (3.5-5.0); Alkaline Phosphatase 138 U/L (40-150); Anion Gap 14 mmol/L (10-20); BUN (Urea Nitrogen) 8 mg/dL (8.9-20.6); Bilirubin, Total 0.4 mg/dL (0.2-1.2); CK (CPK) 70 U/L (30-200); Calc. Creatinine Clearance 0 mL/min (70-130); Calcium 9.2 mg/dL (7.8-10.44); Carbon Dioxide 24 mmol/L (22-29); Chloride 106 mmol/L (98-107); Estimated GFR-MDRD Greater than 90; Globulin 3.5 g/dL (2.4-3.5); Glucose 79 mg/dL (70-105); Lipase 23 U/L (8-78); Potassium 3.7 mmol/L (3.5-5.1); Protein, Total 7.3 g/dL (6.0-8.3); Sodium 140 mmol/L (136-145)
[2018-07-08] MEDS ORDERED: Lorazepam 2 MG/ML VIAL ONE (20:45)
--- NOTE | 2018-07-08 21:27 | PDOC.FPRHP ---
- History of Present Illness Chief Complaint: CP History of Present Illness: 48yo M with presents for CP. Onset this evening while pt was laying down. Pt reports pain went from 7/10 to 1/10 after being given nitro, pt also reports that his pain is exacerbated by laying down and when he gets frustrated by his smart phone crashing. Pain was on L side of chest with some radiation to posterior neck and head. Pain is sharp. ED Course: ativan 1mg - Allergies/Adverse Reactions Allergies Allergy/AdvReac Type Severity Reaction Status Date / Time ibuprofen Allergy Hives Verified 03/23/18 23:00 - Home Medications Medication Instructions Recorded Confirmed Type hydrALAZINE [Apresoline] 25 mg PO TID #90 tab 08/14/17 07/08/18 Rx levETIRAcetam [Keppra] 500 mg PO BID #60 tab 08/14/17 07/08/18 Rx Amlodipine [Norvasc] 10 mg PO QAM #30 tab 03/29/18 07/08/18 Rx Carvedilol [Coreg] 3.125 mg PO BID-WM 07/08/18 07/08/18 History Acetaminophen [Tylenol Regular 650 mg PO Q4H PRN tab 07/09/18 Rx Strength] Aspirin [Ecotrin Low Strength] 81 mg PO DAILY #30 tab 07/09/18 Rx Atorvastatin Calcium [Lipitor] 40 mg PO HS #30 tab 07/09/18 Rx - History PMHx: Hx of PE, Hx of CVA, Hx of WI, Hx of DVT, HTN PSHx: craniotomy, cranial shunt placement FHx: asthma, WI Social: denies TAD ALLERGY: ibuprofen CODE: FULL - Review of Systems General: denies: fever/chills, fatigue Eyes: denies: eye pain, vision changes ENT: denies: nasal congestion, rhinorrhea Respiratory: denies: cough, congestion Cardiovascular: reports: chest pain. denies: edema Gastrointestinal: denies: nausea, vomiting Genitourinary: denies: dysuria, polyuria Skin: denies: lesions, jaundice Musculoskeletal: denies: pain, tenderness Neurological: denies: syncope, seizure Psychological: reports: anxiety. denies: depression - Vital signs BP: 129/89, Pulse: 64, Resp: 18, Temp: 98.8 (Oral), Pain: UTR, O2 sat: 100 on Room Air, Time: 07/08/2018 17:32. weight: 110kg - Physical Exam Constitutional: NAD, awake, alert and oriented HEENT: EOMI, grossly normal vision, grossly normal hearing Neck: supple, trachea midline Chest: no-tender to palpation Heart: RRR, normal S1/S2 Lungs: CTAB, no respiratory distress, no wheezing Abdomen: soft, non-tender Musculoskeletal: normal structure, normal tone Neurological: normal sensation, DTRs 2+, other (Chronic: LUE and LLE weakness ( from previous CVA)) Skin: no rash/lesions, good turgor Heme/Lymphatic: no unusual bruising or bleeding, no purpura Psychiatric: normal mood and affect, intact recent and remote memory FMR H&P: Results - Labs Result Diagrams: 07/08/18 18:02 07/09/18 07:41 Lab results: WBC 3.8 thou/uL (4.8-10.8) L 07/08/18 18:02 Hgb 14.5 g/dL (14.0-18.0) 07/08/18 18:02 Hct 44.0 % (42.0-52.0) 07/08/18 18:02 MCV 94.3 fL (78.0-98.0) 07/08/18 18:02 Plt Count 227 thou/uL (130-400) 07/08/18 18:02 Neutrophils % 35.7 % (42.0-75.0) L 07/08/18 18:02 Sodium 140 mmol/L (136-145) 07/08/18 18:02 Potassium 3.7 mmol/L (3.5-5.1) 07/08/18 18:02 Chloride 106 mmol/L (98-107) 07/08/18 18:02 Carbon Dioxide 24 mmol/L (22-29) 07/08/18 18:02 BUN 8 mg/dL (8.9-20.6) L 07/08/18 18:02 Creatinine 0.88 mg/dL (0.7-1.3) 07/08/18 18:02 Glucose 79 mg/dL (70-105) 07/08/18 18:02 Calcium 9.2 mg/dL (7.8-10.44) 07/08/18 18:02 Total Bilirubin 0.4 mg/dL (0.2-1.2) 07/08/18 18:02 AST 14 U/L (5-34) 07/08/18 18:02 ALT 11 U/L (8-55) 07/08/18 18:02 Alkaline Phosphatase 138 U/L (40-150) 07/08/18 18:02 Creatine Kinase 70 U/L (30-200) 07/08/18 18:02 B-Natriuretic Peptide 13.1 pg/mL (0-100) 07/08/18 18:02 Serum Total Protein 7.3 g/dL (6.0-8.3) 07/08/18 18:02 Albumin 3.8 g/dL (3.5-5.0) 07/08/18 18:02 Lipase 23 U/L (8-78) 07/08/18 18:02 FMR H&P: A/P - Problem List (1) Chest pain Status: Acute Code(s): R07.9 - CHEST PAIN, UNSPECIFIED (2) HTN (hypertension) Status: Chronic Code(s): I10 - ESSENTIAL (PRIMARY) HYPERTENSION Qualifiers: Hypertension type: essential hypertension Qualified Code(s): I10 - Essential (primary) hypertension Comment: (3) History of deep venous thrombosis or pulmonary embolus Status: Chronic Code(s): NIV9069 - (4) Seizure as late effect of cerebrovascular accident (CVA) Status: Chronic Code(s): I69.398 - OTHER SEQUELAE OF CEREBRAL INFARCTION; R56.9 - UNSPECIFIED CONVULSIONS - Plan Typical/Atypical CP likely 2/2 anxiety A- with main exacerbating factors of "cell phone frustration" and emotional feelings over family the history gives low suspicion however, pt has extensive medical hx and reported to one of the admitting physicians that he received nitro in EMS (though documentation of this not found) and that it relieved his pain. trop negative x1, EKG showed no ST elevation. BNP 13. P- admit obs -ASA -trend trops -mg phos tsh -stress test in AM Hx of CVA A- hemmorhagic CVA in March 2018, no f/u with neurosurge since then P- will hold lovenox and use SCDs for ppx -f/u outpt with neurosurg Hx of DVT A- pt reports US done in March in ED showed no evidence of continued clot. Legs symetric on exam P- hold ppx 2/2 above Hx of PE A- CTA ordered in ED P- f/u CTA Hx of seizure 2/2 CVA -f/u neurosurg HTN -home meds dispo: tele obs code: FULL FMR H&P: Upper Level - Pertinent history 48 yr old male with PMH of malignant HTN, subarrachnoid hemorrhage s/p successful coiling of aneurysm, NSTEMI, bilateral PEs and DVTs who presents for chest pain. Chest pain is sharp in nature in the left chest wall and radiates up into posterior neck. NO nausea or vomiting. No diaphoresis. Worse when lying flat. Did feel SOB during the chest pain. Chest pain resolved after 1 mg ativan given in ER. Unclear if nitro was given in EMS. No ASA given. Most recent hemorrhagic CVA in 03/2018. - Pertinent findings Gen: no acute distress, lying comfortably in bed heart: RRR, no M/R/G Lungs: CTAB, no wheezing, rhales, rhonchi Abd: soft, NTTP, BS normal active Ext: no edema in BLE Neuro: normal finger to nose although more shkay on left side. LUE 4/5 strength. LLE 3/5 strength. RUE/RLE strength 5/5 - Plan Date/Time: 07/08/182126 I, [Linda Wynn], have evaluated this patient and agree with findings/plan as outlined by internal medicine veterinary technician resident. Pertinent changes/additions are listed here. 48 yr old male presents with chest pain atypical chest pain -chest pain began at rest with SOB and radiation to neck, no resolved -unclear if patient received nitro in EMS, but no given in ER. -given risk factors and cannot find evidence of previous cath or stress, will get AM stress test -give ASA -check FLP -trend trops hypophosphatemia -replete -start skim milk supplement hx of hemorrhagic CVA HTN -bp fairly well controlled in ED -cont home meds hx of NSTEMI -no stress or cardiac cath previously performed perhaps bc thought to be 2/2 demand ischemia -will obtain [facility] stress test in AM PCP: Lazaro Patel MD Disp: cornelius < 2 midnights, obs to tele Addendum - Attending - Attending Attestation Date/Time: 07/12/18 0016 I personally evaluated the patient and discussed the management with Dr. Patel on 07/08/18. I agree with the History, Examination, Assessment and Plan documented above with any addition or exceptions noted below. 48 y.o. BM with PMH of HTN, subarachnoid hemorrhage s/p successful coiling of aneurysm, NSTEMI, bilateral PEs and DVTs here with atypical CP associated with anxiety, gone at time of interview. R/O WI, MPI in a.m.
[2018-07-08 22:18] LABS: Troponin I Less than 0.010 ng/mL (< 0.028)
--- NOTE | 2018-07-08 23:28 | CT ---
CT PULMONARY ANGIOGRAM WITH IV CONTRAST AND 3D POST PROCESSING: History: Chest pain. Comparison: 05-17-18 FINDINGS: There is good contrast opacification of the pulmonary artery vasculature without filling defects to s uggest pulmonary embolism. The thoracic aorta is opacified without aneurysmal dissection. No pleural or pericardial effusions are seen. No pneumothoraces, lobar consolidation, or lung masses are identif ied. There are mild degenerative changes in the spine. IMPRESSION: No CT evidence of pulmonary embolism. POS: ALPHOSNO
[2018-07-08] MEDS ORDERED: Ondansetron ODT 4 MG TAB PO PRN (23:34)
[2018-07-08] MEDS ORDERED: Acetaminophen 325 MG TAB PO PRN (23:34)
[2018-07-08] MEDS ORDERED: Calcium Carbonate 500 MG ChewTAB PO PRN (23:34)
[2018-07-09 00:29] VITALS: BMI 36.9
[2018-07-09 00:29] LABS: Magnesium 1.8 mg/dL (1.6-2.6); Phosphorus 2.1 mg/dL (2.3-4.7)
[2018-07-09 00:54] LABS: Troponin I 0.022 ng/mL (< 0.028)
[2018-07-09] MEDS ORDERED: Aspirin 325 mg Enteric Coated Tablet PO SCH (04:15)
--- NOTE | 2018-07-09 06:45 | PDOC.FM ---
Addendum entered and electronically signed by Gloria Juarez MD 07/09/18 08:59 : Plan: -Start on Statin, ASCVD >7.5%, also hx of CVA Original Note: - Subjective Subjective: NAEO. Chest pain resolved since being in ED. endorses anxiety/depressive sxs-pt not interested in taking meds. - Objective MAR Reviewed: Yes Vital Signs & Weight: Vital Signs (12 hours) Temp Pulse Resp BP Pulse Ox 07/09/18 04:00 97.9 F 82 18 121/92 H 96 07/08/18 23:20 98.4 F 82 17 105/96 H 98 Weight Weight 103.782 kg I&O: 07/07/18 07/08/18 07/09/18 06:59 06:59 06:59 Intake Total 150 Balance 150 Result Diagrams: 07/08/18 18:02 07/09/18 07:41 Phys Exam - Physical Examination Constitutional: NAD HEENT: PERRLA, moist MMs Respiratory: clear to auscultation bilateral no resp. distress Cardiovascular: RRR, no significant murmur no chest pain to palpation Neurological: normal sensation mild left facial droop, dec strength in left upper & lower extrem. Dx/Plan (1) Chest pain Code(s): R07.9 - CHEST PAIN, UNSPECIFIED Status: Acute (2) Hypophosphatemia Code(s): E83.39 - OTHER DISORDERS OF PHOSPHORUS METABOLISM Status: Acute (3) ICH (intracerebral hemorrhage) Code(s): I61.9 - NONTRAUMATIC INTRACEREBRAL HEMORRHAGE, UNSPECIFIED Status: Chronic Qualifiers: Intracerebral hemorrhage etiology: nontraumatic Cerebral hemorrhage location: cerebral hemisphere, subcortical portion Laterality: right Qualified Code(s): I61.0 - Nontraumatic intracerebral hemorrhage in hemisphere, subcortical (4) HTN (hypertension) Code(s): I10 - ESSENTIAL (PRIMARY) HYPERTENSION Status: Chronic Qualifiers: Hypertension type: essential hypertension Qualified Code(s): I10 - Essential (primary) hypertension (5) History of deep venous thrombosis or pulmonary embolus Code(s): [id number] - Status: Chronic (6) Obesity (BMI 30-39.9) Code(s): E66.9 - OBESITY, UNSPECIFIED Status: Chronic (7) Seizure as late effect of cerebrovascular accident (CVA) Code(s): I69.398 - OTHER SEQUELAE OF CEREBRAL INFARCTION; R56.9 - UNSPECIFIED CONVULSIONS Status: Chronic (8) History of non-ST elevation myocardial infarction (NSTEMI) Code(s): I25.2 - OLD MYOCARDIAL INFARCTION Status: Acute - Plan Plan: #Atypical CP likely 2/2 anxiety -Chest pain has resolved -Trops (-) x3 -HEART 3-4, NST this AM -A1c & FLP to further risk stratify -Cardiology consult vs. home pending results #Hypophosphatemia -2.1, will replace PO #Hx of NSTEMI - no cath done since it was thought to be 2/2 demand ischemia #Hx of Hemorrhagic CVA -hemmorhagic CVA in March 2018, no f/u with neurosurg since then for resolution imaging -f/u outpt with neurosurg -On Keppra for sz ppx, continue this #Hx of DVT -Provoked vs. unprovoked? -Pt. reports US done in March in ED showed no evidence of continued clot. Legs symetric on exam -hold ppx 2/2 above #Hx of PE -CTA negative -non hypoxic on RA, not tachycardic -Continue SCDs #Hx of seizure 2/2 CVA -continue keppra -f/u outpt #HTN -home meds dvt ppx: SCD (hx of hemorragic CVA) diet: NPO until after stress test Dispo: 1) Atypical CP- NST today. If neg likely anxiety induced. Will discuss output initiation of SSRI. 2) Hypophosphatemia- will replace Will discuss w/ Dr. Song Addendum - Attending - Attending Attestation Date/Time: 07/09/18 9338 I personally evaluated the patient and discussed the management with Dr. Juarez. I agree with the History, Examination, Assessment and Plan documented above with any addition or exceptions noted below. Pt is getting stress test today. If negative will d/c home. Starting statin with increased ascvd risk.
[2018-07-09 08:03] LABS: Hemoglobin A1c 4.4 % (4.0-6.0)
[2018-07-09 08:14] LABS: Anion Gap 12 mmol/L (10-20); BUN (Urea Nitrogen) 9 mg/dL (8.9-20.6); Calc. Creatinine Clearance 156 mL/min (70-130); Calcium 9.1 mg/dL (7.8-10.44); Carbon Dioxide 25 mmol/L (22-29); Cardiac Risk 2.6 (Less than 4.5); Chloride 107 mmol/L (98-107); Cholesterol 111 mg/dl (< 200 Desired); Estimated GFR-MDRD Greater than 90; Glucose 75 mg/dL (70-105); HDL Cholesterol 42 mg/dL (>60 Neg Risk); LDL Cholesterol, Calculated 56 mg/dL; Potassium 3.5 mmol/L (3.5-5.1); Sodium 140 mmol/L (136-145); Triglycerides 66 mg/dL (Less than 150)
[2018-07-09] MEDS ORDERED: Lorazepam 2 MG/ML VIAL SLOW IVP SCH (08:15)
[2018-07-09] MEDS ORDERED: levETIRAcetam 500 MG TAB PO SCH (09:00)
[2018-07-09] MEDS ORDERED: Amlodipine 10 MG TAB PO SCH (09:00)
[2018-07-09] MEDS ORDERED: Aspirin 81 mg Enteric Coated Tablet PO SCH (09:00)
[2018-07-09] MEDS ORDERED: ADENOSINE 60 MG/20 ML VIAL ONE (09:49)
[2018-07-09] MEDS: hydrALAZINE 25 MG TAB PO SCH ×2 (11:46→15:40)
[2018-07-09] MEDS ORDERED: PHOS-NAK 1 PKT PACK PO SCH ×2 (12:00→14:30)
--- NOTE | 2018-07-09 13:35 | NM ---
EXAM: CARDIAC SPECT HISTORY: Chest pain TECHNIQUE: A myocardial perfusion scan was performed using the single isotope 1 day protocol with daniel hnetium 99m sestamibi. [9 mCi] was injected intravenously for the rest exam followed by 28 mCifor the stress study. Pharmacologic stress with adenosine was monitored and interpreted by Dr. Amaro FINDINGS: Homogeneous tracer distribution is seen in the myocardial segments on stress and rest image s without fixed or reversible defects. Gated SPECT LVEF: 60% Wall motion exam: Normal IMPRESSION: Normal myocardial perfusion scan
[2018-07-09 15:54] VITALS: BP 142/89; TEMP 97.5
[2018-07-09] MEDS ORDERED: Atorvastatin Calcium 40 MG TAB PO SCH (21:00)
--- NOTE | 2018-07-10 05:09 | DIS ---
DATE OF ADMISSION: 07/08/2018 DATE OF DISCHARGE: 07/09/2018 ADMITTING ATTENDING: Lazaro Benitez MD. DISCHARGE ATTENDING: Sully Song MD. RESIDENT: Gloria Juarez, PGY-1 CONSULTS: None. PROCEDURES AND IMAGIN. Nuclear stress test. Normal myocardial perfusion scan. Ejection fraction 60%. 2. Chest and thorax CTA: Negative for PE. 3. Chest x-ray negative for acute cardiopulmonary processes. DISCHARGE MEDICATIONS: 1. Atorvastatin 40 mg p.o. at bedtime. 2. Aspirin 81 mg p.o. daily. 3. Tylenol 650 mg p.o. q.4 hours p.r.n. for pain or fever. 4. Coreg 3.125 mg p.o. b.i.d. with meals. 5. Norvasc 10 mg p.o. q.a.m. 6. Keppra 500 mg p.o. b.i.d. 7. Hydralazine 25 mg p.o. t.i.d. DISCONTINUED MEDICATIONS: None. HISTORY OF PRESENT ILLNESS/HOSPITAL COURSE: Mr. Marcos Hassan is a 48-year-old male with history of NSTEMI and hypertension, who presented to the ER with sharp chest pain. This occurred while he was on his phone and his phone shut down and became anxious, so chest pain started. He has a history of DVT, PE, and NSTEMI. In the ER, CT was negative for PE. In addition, cardiac workup including cardiac enzymes and EKG were within normal limits. The patient underwent nuclear stress test which was negative for myocardial ischemia. It is likely thought that the chest pain was due to anxiety. The patient is open to discussing starting anti-anxiolytics in the outpatient setting with Dr. Patel. Of note, patient was not placed on therapeutic anticoagulation since he had a hemorrhagic CVA, his 2nd one, in March, but never followed up with Neurosurgery and was only on mechanical SCDs. DISPOSITION: Stable. DISCHARGE INSTRUCTIONS: 1. Location: Home. 2. Diet: Heart healthy. 3. Activity: As tolerated. 4. Followup: a. Please follow up with Dr. Patel, PCP, in 5 to 7 days. b. Please follow up with Neurosurgery for evaluation of hemorrhagic CVA from March 2018. 5. Please discuss with Dr. Patel starting anti anxiolytics. Job ID: [id number]
== END 2018-07-09 17:00 | disposition home or self-care (01) ==
LOC: ERS 17:21 → ERHOLD 21:24 → 2SE 23:27
PROVIDERS: ADMIT Family Medicine; ATTEND Family Medicine
DX: R07.89 Other chest pain (principal); I25.2 Old myocardial infarction; I10 Essential (primary) hypertension; I69.198 Other sequelae of nontraumatic intracerebral hemorrhage; R56.9 Unspecified convulsions; E83.39 Other disorders of phosphorus metabolism; Z86.711 Personal history of pulmonary embolism; Z86.718 Personal history of other venous thrombosis and embolism; Z79.899 Other long term (current) drug therapy; Z88.6 Allergy status to analgesic agent; Z98.890 Other specified postprocedural states
CPT/HCPCS: 36415; 71045; 71275; 78452; 80048; 80053; 80061; 82550; 83036; 83690; 83735; 83880; 84100; 84443; 84484; 85025; 93005; 93017; 96374; 96376; A9500; G0378; J0153; J2060; Q9966

== ENCOUNTER 2018-09-04 05:26 | Inpatient (IN) | payer BC ==
[2018-09-04 06:19] LABS: Bilirubin Negative (Negative); Blood, Urine Small (Negative); Clarity CLOUDY (Clear); Glucose, Urine (Dipstick) Negative (Negative); Leukocyte Large (Negative); Nitrite Negative (Negative); Protein, Urine (Dipstick) Negative (Neg-Trace); Specific Gravity, Urine 1.017 (1.002-1.036)
[2018-09-04 06:20] LABS: Bacteria/HPF 3+ HPF (None Seen); Hyaline Casts/LPF 4-6 HYALINE CAST LPF (0-3 Hyaline); Pathc Cast-AUWi Flag 0.81 (0-2.49); Squamous Epithelial 0-3 HPF (0-3)
[2018-09-04 06:21] LABS: Hemoglobin 13.4 g/dL (14.0-18.0); Mean Corpuscular HGB CONC 32.8 g/dL (32.0-36.0); Mean Corpuscular Hemoglobin 30.6 pg (27.0-31.0); Mean Corpuscular Volume 93.2 fL (78.0-98.0); Mean Platelet Volume 9.7 fL (7.4-10.4); Platelet Count 175 thou/uL (130-400); RBC Distribution Width 13.7 % (11.5-14.5); Red Blood Cell (RBC) Count 4.39 mill/uL (4.70-6.10); White Blood Cell (WBC) Count 8.9 thou/uL (4.8-10.8)
[2018-09-04 06:33] LABS: ALT (SGPT) 11 U/L (8-55); AST (SGOT) 8 U/L (5-34); Albumin 3.5 g/dL (3.5-5.0); Alkaline Phosphatase 147 U/L (40-150); Anion Gap 12 mmol/L (10-20); BUN (Urea Nitrogen) 7 mg/dL (8.9-20.6); Bilirubin, Total 0.9 mg/dL (0.2-1.2); Calc. Creatinine Clearance 0 mL/min (70-130); Calcium 8.6 mg/dL (7.8-10.44); Carbon Dioxide 23 mmol/L (22-29); Chloride 107 mmol/L (98-107); Estimated GFR-MDRD Greater than 90; Globulin 3.1 g/dL (2.4-3.5); Glucose 90 mg/dL (70-105); Protein, Total 6.6 g/dL (6.0-8.3); Sodium 139 mmol/L (136-145)
[2018-09-04 06:38] LABS: Band 8 % (5-11); Lymphocytes 9 % (21-51); MDiff Complete? YES; Monocytes 7 % (0-10); Neutrophil 76 % (42-75); Potassium 2.9 mmol/L (3.5-5.1)
[2018-09-04] MEDS ORDERED: Piperacillin/Tazobactam 4.5 GM VIAL ONE (06:58)
--- NOTE | 2018-09-04 07:31 | RAD ---
EXAM: Single view of the chest HISTORY: Fever and back pain COMPARISON: None FINDINGS: Single view of the chest shows a normal sized cardiomediastinal silhouette. A catheter pro jecting over the right chest may represent a RECYCLE DRIVER shunt. There is no evidence of consolidation, mass, or pleural effusion. The bones are unremarkable. IMPRESSION: No evidence of acute cardiopulmonary disease
--- NOTE | 2018-09-04 08:11 | CT ---
EXAM: CT brain without contrast HISTORY: Altered mental status COMPARISON: 03/24/2018 TECHNIQUE: Multiple contiguous axial images were obtained and a CT of the brain without contrast. FINDINGS: Stable bifrontal encephalomalacia is seen. A right posterior approach ventriculostomy gemini ter seen with its tip in the right lateral ventricle. There is no evidence of hydrocephalus, intracranial hemorrhage, or extra-axial fluid collection. A metallic structure is again seen near the right internal carotid artery. The calvarium and overlying soft tissues are unremarkable. The visualized paranasal sinuses and masto id air cells are well aerated. IMPRESSION: No evidence of acute intracranial abnormality
--- NOTE | 2018-09-04 08:31 | RAD ---
XR Shuntogram HISTORY: Altered mental status. COMPARISON: None. FINDINGS: A right sided ventricular peritoneal shunt tube is present. The shunt tube crosses over the right side of the chest and terminates in the left lower quadrant. No kinking of the tube or signs of break. IMPRESSION: Unremarkable shuntogram.
[2018-09-04 09:07] VITALS: BMI 33.1
[2018-09-04] MEDS ORDERED: Ondansetron PF 4 MG/2 ML Vial IVP PRN (09:18)
[2018-09-04] MEDS ORDERED: Acetaminophen 325 MG TAB PO PRN (09:18)
[2018-09-04] MEDS ORDERED: traMADol HCl 50 MG TAB PO PRN (09:18)
[2018-09-04] MEDS ORDERED: Ondansetron ODT 4 MG TAB PO PRN (09:18)
[2018-09-04] MEDS ORDERED: Acetaminophen 650 MG Suppository PR PRN (09:18)
--- NOTE | 2018-09-04 09:56 | PDOC.FPRHP ---
- History of Present Illness Chief Complaint: back pain History of Present Illness: 48 yo M with PMH of hemorrhagic stroke in February with subsequent GAME FARM HELPER shunt with L sided weakness presents with chief complaint of back pain last night that woke him from sleep. The pain is in central low back, sharp, constant, nonradiating, and lasted 4 hours until he arrived to the the hospital. Back pain is currently resolved. He also states he had a headache in the parietal region that is now resolved. He reports malaise, fever. Denies chest pain or SOB , denies nausea or vomiting, reports constipation. Specifically denies dysuria or hematuria, however he wears depends for incontinence and reports post void dribbling. He uses a wheelchair and is unable to ambulate. In ED, he was febrile to 102.1 F, tachycardic. WBC was normal. CXR showed no acute cardiopulmonary abnormalities. UA showed signs of infection. He was given 1L fluids, started on vanc and rocephin. CT head and shuntogram were both unremarkable. - Allergies/Adverse Reactions Allergies Allergy/AdvReac Type Severity Reaction Status Date / Time ibuprofen Allergy Hives Verified 09/04/18 09:23 - Home Medications Medication Instructions Recorded Confirmed Type hydrALAZINE [Apresoline] 25 mg PO TID #90 tab 08/14/17 09/04/18 Rx levETIRAcetam [Keppra] 500 mg PO BID #60 tab 08/14/17 09/04/18 Rx Amlodipine [Norvasc] 10 mg PO QAM #30 tab 03/29/18 09/04/18 Rx Carvedilol [Coreg] 3.125 mg PO BID-WM 07/08/18 09/04/18 History Acetaminophen [Tylenol Regular 650 mg PO Q4H PRN tab 07/09/18 09/04/18 Rx Strength] - History PMHx: hemorrhagic stroke in february with left sided hemiparesis, hydrocephalus s/p GAME FARM HELPER shunt, HTN, hx LLE DVT, CVA x2 PSHx: Peg tube, removed. Hydrocephalus GAME FARM HELPER shunt FHx: diabetes in sister and mother, Reports prostate cancer in his father. Social: lives with family. No t/a/d use. - Review of Systems General: reports: fever/chills, fatigue Eyes: reports: other (reports decreased vision in L eye since stroke). denies : eye pain ENT: denies: nasal congestion, rhinorrhea Respiratory: reports: other (reports phlegm in throat). denies: cough, congestion, shortness of breath Cardiovascular: denies: chest pain, palpitation Gastrointestinal: reports: constipation. denies: nausea, vomiting, diarrhea, abdominal pain, GI bleeding Genitourinary: reports: incontinence (reports post-void dribbling for the past year. Reports unable to control when he voids.). denies: dysuria, other ( hematuria) Skin: denies: rashes, lesions Musculoskeletal: reports: other (No saddle anesthesia. weakness on L side s/p stroke.) Neurological: reports: numbness (numbness over L arm from stroke, weakness L arm and leg from stroke) Psychological: denies: anxiety, depression - Vital signs BP: 146/92 HR: 113 RR: 20 Tmax: 102.1 Pox: 97% on RA Wt: 99 kg - Physical Exam Constitutional: NAD, awake, alert and oriented, well developed HEENT: normocephalic and atraumatic, PERRLA, grossly normal hearing, MMM, oropharynx clear Neck: supple, no LAD Heart: RRR, normal S1/S2, no murmurs/rubs/gallops, pulses present, no edema Lungs: CTAB, no respiratory distress, good air movement, no wheezing Abdomen: soft, non-tender, bowel sounds present, no masses/distention, other ( Rectal tone normal. No CVA tenderness. On rectal exam, unable to feel prostate. Stool of normal color.) Musculoskeletal: normal structure, normal tone -Musculoskeletal: mildly TTP midline in lumbosacral sacral area. No CVA tenderness. No lesions or ulcers or sacrum Neurological: other (weakness 4/5 LLE on leg raise, 3/5 on plantar flexion. RLE 5/5 strength) Skin: no rash/lesions, good turgor Heme/Lymphatic: no unusual bruising or bleeding, no purpura Psychiatric: normal mood and affect FMR H&P: Results - Labs Result Diagrams: 09/04/18 05:43 09/04/18 05:43 Lab results: WBC 8.9 thou/uL (4.8-10.8) 09/04/18 05:43 Hgb 13.4 g/dL (14.0-18.0) L 09/04/18 05:43 Hct 40.9 % (42.0-52.0) L 09/04/18 05:43 MCV 93.2 fL (78.0-98.0) 09/04/18 05:43 Plt Count 175 thou/uL (130-400) 09/04/18 05:43 Band Neuts % (Manual) 8 % (5-11) 09/04/18 05:43 Sodium 139 mmol/L (136-145) 09/04/18 05:43 Potassium 2.9 mmol/L (3.5-5.1) L* 09/04/18 05:43 Chloride 107 mmol/L (98-107) 09/04/18 05:43 Carbon Dioxide 23 mmol/L (22-29) 09/04/18 05:43 BUN 7 mg/dL (8.9-20.6) L 09/04/18 05:43 Creatinine 0.84 mg/dL (0.7-1.3) 09/04/18 05:43 Glucose 90 mg/dL (70-105) 09/04/18 05:43 Lactic Acid 0.9 mmol/L (0.5-2.2) 09/04/18 05:43 Calcium 8.6 mg/dL (7.8-10.44) 09/04/18 05:43 Total Bilirubin 0.9 mg/dL (0.2-1.2) 09/04/18 05:43 AST 8 U/L (5-34) 09/04/18 05:43 ALT 11 U/L (8-55) 09/04/18 05:43 Alkaline Phosphatase 147 U/L (40-150) 09/04/18 05:43 Serum Total Protein 6.6 g/dL (6.0-8.3) 09/04/18 05:43 Albumin 3.5 g/dL (3.5-5.0) 09/04/18 05:43 Urine Ketones 40 mg/dL (Negative) H 09/04/18 05:56 Urine Blood Small (Negative) H 09/04/18 05:56 Urine Nitrite Negative (Negative) 09/04/18 05:56 Ur Leukocyte Esterase Large (Negative) H 09/04/18 05:56 Urine RBC 7-10 HPF (0-3) H 09/04/18 05:56 Urine WBC Greater Than 50-TNTC HPF (0-3) H 09/04/18 05:56 Ur Squamous Epith Cells 0-3 HPF (0-3) 09/04/18 05:56 Urine Bacteria 3+ HPF (None Seen) H 09/04/18 05:56 FMR H&P: A/P - Problem List (1) Sepsis Current Visit: Yes Status: Acute Code(s): A41.9 - SEPSIS, UNSPECIFIED ORGANISM (2) UTI (urinary tract infection) Current Visit: Yes Status: Acute (3) History of hemorrhagic cerebrovascular accident (CVA) with residual deficit Current Visit: Yes Status: Chronic Code(s): I69.30 - UNSPECIFIED SEQUELAE OF CEREBRAL INFARCTION (4) HTN (hypertension) Current Visit: No Status: Chronic Code(s): I10 - ESSENTIAL (PRIMARY) HYPERTENSION Qualifiers: Hypertension type: essential hypertension Qualified Code(s): I10 - Essential (primary) hypertension Comment: (5) History of deep venous thrombosis or pulmonary embolus Current Visit: No Status: Chronic Code(s): [id number] - (6) Seizure as late effect of cerebrovascular accident (CVA) Current Visit: No Status: Chronic Code(s): I69.398 - OTHER SEQUELAE OF CEREBRAL INFARCTION; R56.9 - UNSPECIFIED CONVULSIONS - Plan Sepsis 2/2 UTI vs Prostatitis -Febrile to 102.1, tachycardic to 113, R 20. WBC wnl -UA showed bacteria, blood LE, and high WBC. -Abd/Pelvis CT: no obstruction/hydronephrosis, shows prostatic enlargement and bladder wall thickening. Prostatic enlargement may be 2/2 to prostatitis vs BPH vs other -on MIGUEL, unclear if prostate is boggy or firm. Patient was not "jumping off bed" on exam. Will check PSA (from blood prior to exam) to help further distinguish, and monitor for s/s improvement with antibiotics. If patient has prostatitis, will need to be on antibiotics for longer duration. -Blood and urine cx pending -In ED: vanc and zosyn, 1L NS -Discontinue vanc and zosyn, started PO levoquin -MIVF LR @ 125 ml/hr Chronic Incontinence - BPH vs neurogenic vs other - Follow up outpatient with urology Hypokalemia -K of 2.9 on admission, will monitor and replace as necessary Hx Hemorrhagic CVA with Left sided hemiparesis -Weakness in RUE and RLE, unable to ambulate on his own. Uses a wheelchair -PT/OT consulted Hydrocephalus -2/2 to above -s/p GAME FARM HELPER shunt -Head CT/shuntogram: unremarkable Hx of Seizures s/p stroke -continue home keppra HTN -continue home medications Hx of DVT and PE -patient no longer on blood thinner -D-dimer positive, however patient denies SOB, chest pain. Tachycardia has resolved with fluids. Satting well on RA. -No calf pain, tenderness, or swelling -continue to monitor. Lovenox for DVT ppx Code status: full Diet: HH DVT ppx: lovenox PCP: Jorge GI: famotidine FMR H&P: Upper Level - Pertinent history 48 yo AAM with PMH of hemorrhagic CVA s/p GAME FARM HELPER shunt placement presenting with lower back pain that began overnight. On work up in ER, pt found to have fever up to 102, was tachycardic and UA suggestive of infection. - Pertinent findings Tmax 102, HR 110, otherwise VSS Gen: NAD CV: tachycardic, no MMR Resp: CTAB - Plan Date/Time: 09/04/18 0907 I, Eligio Disla MD PGY3, have evaluated this patient and agree with findings/ plan as outlined by internal communications specialist resident. Pertinent changes/additions are listed here. 1. Sepsis 2/2 UTI vs prostatitis -Workup has indicated that pt has UTI but with CT evidence of enlarged prostate , concern for prostatitis. Will continue pt on Levaquin PO. -Blood and urine cultures pending. -Workup negative for GAME FARM HELPER complications or nephrolithiasis/pyelonephritis. 2. Hypokalemia -Replete and recheck. 80 meq ordered PO. FULL code PPx: Lovenox for DVT, Famotidine for GI. dispo: Admit to inpatient for anticipated length of stay greater than two midnights, pending clinical course. Addendum - Attending - Attending Attestation Date/Time: 09/04/18 1420 I personally evaluated the patient and discussed the management with Dr. Hassan and Naif. I agree with the History, Examination, Assessment and Plan documented above with any addition or exceptions noted below. No evidence of UNDERCOATER infection. UTi vs Prostatitis. Prosate exam was not tender. Prestatic Enlargement is noted and can be followed outpt after sepsis resolved.
--- NOTE | 2018-09-04 10:18 | CT ---
CT Stone Protocol HISTORY: Abdominal and back pain. Evaluation for renal stone. COMPARISON: CT angiogram of chest performed 07/08/2018 FINDINGS: There is minimal linear scarring within the right lung base. The liver, spleen, pancreas and gallbladder regions appear unremarkable given the limitations of a no ncontrast exam. Right and left adrenal glands are normal in appearance. Right and left kidneys are normal in size. Th ere is no evidence of obstruction or renal calculi. There is no significant periaortic or mesenteric adenopathy. A ventricular peritoneal shunt tube is seen the tip of the tube is in the left lower quadrant of the abdomen. CT of pelvis performed without contrast enhancement: The prostate is enlarged. The bladder is nondist ended but the bladder wall appears thickened. There is no pelvic lymphadenopathy or mass. The appendix region is normal. There are mild arthritic changes of the spine and hips. IMPRESSION: 1. Ventricular peritoneal shunt tube in place. 2. Enlarged prostate with thickened bladder wall. 3. No renal or ureteral calculi.
[2018-09-04] MEDS: Lactated Ringer's 1,000 ML IV SCH ×2 (10:33→14:52)
[2018-09-04] MEDS: Famotidine 20 MG TAB PO SCH ×2 (10:38→21:19)
[2018-09-04] MEDS ORDERED: cefTRIAXone\\ROCEPHIN 2 GM in Sodium Chloride 0.9% 100 ML IVPB SCH (11:00)
[2018-09-04] MEDS: hydrALAZINE 25 MG TAB PO SCH ×3 (13:31→21:19)
[2018-09-04] MEDS ORDERED: Potassium Chloride 20 MEQ TAB PO SCH (14:00)
[2018-09-04] MEDS: Enoxaparin Sodium 40 MG/0.4 ML SYRINGE SC SCH (14:51)
[2018-09-04] MEDS: Carvedilol 6.25 MG TAB PO SCH (14:51)
[2018-09-04] MEDS: levETIRAcetam 500 MG TAB PO SCH (21:19)
[2018-09-05] MEDS: Lactated Ringer's 1,000 ML IV SCH ×2 (02:42→08:47)
[2018-09-05] MEDS ORDERED: Clopidogrel Bisulfate 75 MG TAB ONE (07:44)
[2018-09-05 08:15] LABS: % Free PSA 48.1 % (.); Total PSA 33.3 ng/mL (0.0-4.0)
--- NOTE | 2018-09-05 08:37 | PDOC.FM ---
Addendum entered and electronically signed by Mignon Hassan MD 09/05/18 08:49: S: Patient reports he is feeling well, reports his back is not having any pain. No CP or SOB. States he is eating/drinking well. He is wanting a shower this morning. O: VSS General: Lying in bed in no acute distress Head: normocephalic atraumatic EENT: MMM, no LAD, trach midline Cardiac: RRR, no murmur Lungs: BCTA, breathing is regular and non labored Abd: Soft, NTTP, BS+ Extremities: no edema, pulses intact 2+ bilat upper and lower Psych: normal mood and affect Original Note: - Objective Vital Signs & Weight: Vital Signs (12 hours) Temp Pulse Resp BP Pulse Ox 09/05/18 08:00 98.4 F 90 14 132/91 H 97 09/05/18 06:01 98.7 F 97 20 117/81 95 09/05/18 00:00 98.8 F 97 20 112/71 98 09/04/18 21:19 104 H Weight Weight 98.883 kg Result Diagrams: 09/05/18 08:36 09/05/18 08:36 Dx/Plan (1) Sepsis Code(s): A41.9 - SEPSIS, UNSPECIFIED ORGANISM Status: Acute (2) UTI (urinary tract infection) Status: Acute (3) History of hemorrhagic cerebrovascular accident (CVA) with residual deficit Code(s): I69.30 - UNSPECIFIED SEQUELAE OF CEREBRAL INFARCTION Status: Chronic (4) HTN (hypertension) Code(s): I10 - ESSENTIAL (PRIMARY) HYPERTENSION Status: Chronic Qualifiers: Hypertension type: essential hypertension Qualified Code(s): I10 - Essential (primary) hypertension (5) History of deep venous thrombosis or pulmonary embolus Code(s): [id number] - Status: Chronic (6) Seizure as late effect of cerebrovascular accident (CVA) Code(s): I69.398 - OTHER SEQUELAE OF CEREBRAL INFARCTION; R56.9 - UNSPECIFIED CONVULSIONS Status: Chronic - Plan Plan: Sepsis 2/2 UTI -Febrile to 102.1, tachycardic to 113, R 20. WBC wnl -UA showed bacteria, blood LE, and high WBC. -Abd/Pelvis CT: no obstruction/hydronephrosis, shows prostatic enlargement and bladder wall thickening. -On MIGUEL, patient was not very tender to palpation; less likely that this is prostatitis -Blood and urine cx pending -Continue levoquin -discontinue IVF as tolerating PO intake Chronic Incontinence - BPH vs neurogenic vs other - Large prostate seen on CT, PSA slightly elevated, likely BPH playing a part in his incontinence - Follow up outpatient with urology Hypokalemia -K of 2.9 on admission, will monitor and replace as necessary -AM BMP pending Hx Hemorrhagic CVA with Left sided hemiparesis -Weakness in RUE and RLE, unable to ambulate on his own. Uses a wheelchair -PT/OT consulted Hydrocephalus -2/2 to above -s/p CELL ATTENDANT HELPER shunt -Head CT/shuntogram: unremarkable Hx of Seizures s/p stroke -continue home keppra HTN -continue home medications Hx of DVT and PE -patient no longer on blood thinner -D-dimer positive, however patient denies SOB, chest pain. Tachycardia has resolved with fluids. Satting well on RA. -No calf pain, tenderness, or swelling -continue to monitor. Lovenox for DVT ppx Code status: full Diet: HH DVT ppx: lovenox PCP: Jorge GI: famotidine Addendum - Attending - Attending Attestation Date/Time: 09/05/18 1040 I personally evaluated the patient and discussed the management with Dr. Hassan. I agree with the History, Examination, Assessment and Plan documented above with any addition or exceptions noted below.
[2018-09-05] MEDS: Carvedilol 6.25 MG TAB PO SCH ×2 (08:40→16:34)
[2018-09-05] MEDS: Amlodipine 10 MG TAB PO SCH (08:40)
[2018-09-05] MEDS: hydrALAZINE 25 MG TAB PO SCH ×3 (08:42→21:17)
[2018-09-05] MEDS: levETIRAcetam 500 MG TAB PO SCH ×2 (08:42→21:17)
[2018-09-05] MEDS: Famotidine 20 MG TAB PO SCH ×2 (08:46→21:17)
[2018-09-05] MEDS: Enoxaparin Sodium 40 MG/0.4 ML SYRINGE SC SCH (08:46)
[2018-09-05 08:50] LABS: Hemoglobin 13.6 g/dL (14.0-18.0); Mean Corpuscular HGB CONC 32.1 g/dL (32.0-36.0); Mean Corpuscular Hemoglobin 30.1 pg (27.0-31.0); Mean Corpuscular Volume 93.6 fL (78.0-98.0); Mean Platelet Volume 9.8 fL (7.4-10.4); Platelet Count 148 thou/uL (130-400); RBC Distribution Width 13.9 % (11.5-14.5); Red Blood Cell (RBC) Count 4.51 mill/uL (4.70-6.10); White Blood Cell (WBC) Count 13.8 thou/uL (4.8-10.8)
[2018-09-05 09:08] LABS: Anion Gap 11 mmol/L (10-20); BUN (Urea Nitrogen) 5 mg/dL (8.9-20.6); Calc. Creatinine Clearance 164 mL/min (70-130); Calcium 8.9 mg/dL (7.8-10.44); Carbon Dioxide 23 mmol/L (22-29); Chloride 104 mmol/L (98-107); Estimated GFR-MDRD Greater than 90; Glucose 83 mg/dL (70-105); Potassium 3.5 mmol/L (3.5-5.1); Sodium 134 mmol/L (136-145)
[2018-09-05 09:11] LABS: Band 4 % (5-11); Lymphocytes 10 % (21-51); MDiff Complete? YES; Monocytes 6 % (0-10); Neutrophil 80 % (42-75); RBC Morphology Normal
[2018-09-06 06:47] LABS: #Eosinphils 0.1 thou/uL (0.0-0.7); #Lymphocytes 1.2 thou/uL (1.20-3.40); #Monocytes 0.9 thou/uL (0.11-0.59); %Basophils 0.1 % (0.0-1.0); %Eosinophils 1.3 % (0.0-10.0); %Lymphocytes 11.7 % (21.0-51.0); %Monocytes 8.5 % (0.0-10.0); %Neutrophils 78.4 % (42.0-75.0); Hemoglobin 12.5 g/dL (14.0-18.0); Mean Corpuscular HGB CONC 32.3 g/dL (32.0-36.0); Mean Corpuscular Hemoglobin 30.6 pg (27.0-31.0); Mean Corpuscular Volume 94.7 fL (78.0-98.0); Mean Platelet Volume 10.4 fL (7.4-10.4); Platelet Count 139 thou/uL (130-400); RBC Distribution Width 13.8 % (11.5-14.5); Red Blood Cell (RBC) Count 4.07 mill/uL (4.70-6.10); White Blood Cell (WBC) Count 10.2 thou/uL (4.8-10.8)
[2018-09-06 07:05] LABS: Anion Gap 13 mmol/L (10-20); BUN (Urea Nitrogen) 7 mg/dL (8.9-20.6); Calc. Creatinine Clearance 158 mL/min (70-130); Calcium 8.5 mg/dL (7.8-10.44); Carbon Dioxide 21 mmol/L (22-29); Chloride 106 mmol/L (98-107); Estimated GFR-MDRD Greater than 90; Glucose 77 mg/dL (70-105); Potassium 3.5 mmol/L (3.5-5.1); Sodium 136 mmol/L (136-145)
[2018-09-06] MEDS: Famotidine 20 MG TAB PO SCH (07:50)
[2018-09-06] MEDS: levETIRAcetam 500 MG TAB PO SCH (07:50)
[2018-09-06] MEDS: Enoxaparin Sodium 40 MG/0.4 ML SYRINGE SC SCH (07:51)
--- NOTE | 2018-09-06 08:57 | PDOC.FM ---
Addendum entered and electronically signed by Mignon Hassan MD 09/06/18 09:28: Addendum to A&P: Likely Acute prostatitis, has not had recurrent UTIs. Will plan to treat for 6 weeks Levaquin. Original Note: - Subjective Subjective: No fevers over last night. Reports he does feel cold all the time. Denies chest pain, SOB, abdominal pain. Eating and drinking well, voiding and stooling well. No concerns. - Objective Vital Signs & Weight: Vital Signs (12 hours) Temp Pulse Resp BP BP Pulse Ox 09/06/18 07:31 98.2 F 79 16 109/74 98 09/06/18 04:00 97.4 F L 97 20 169/79 H 91 L 09/06/18 00:10 98.6 F 09/05/18 21:17 80 Weight Weight 98.883 kg Result Diagrams: 09/06/18 05:56 09/06/18 05:56 Phys Exam - Physical Examination Constitutional: NAD HEENT: PERRLA, moist MMs Respiratory: no wheezing, clear to auscultation bilateral Cardiovascular: RRR, no significant murmur Gastrointestinal: soft, non-tender, no distention, positive bowel sounds Musculoskeletal: no edema, pulses present weakness L side s/p stroke Psychiatric: normal affect Skin: no rash, normal turgor, cap refill <2 seconds Dx/Plan (1) Prostatitis Code(s): N41.9 - INFLAMMATORY DISEASE OF PROSTATE, UNSPECIFIED Status: Acute (2) Sepsis Code(s): A41.9 - SEPSIS, UNSPECIFIED ORGANISM Status: Acute (3) UTI (urinary tract infection) Status: Acute (4) History of hemorrhagic cerebrovascular accident (CVA) with residual deficit Code(s): I69.30 - UNSPECIFIED SEQUELAE OF CEREBRAL INFARCTION Status: Chronic (5) HTN (hypertension) Code(s): I10 - ESSENTIAL (PRIMARY) HYPERTENSION Status: Chronic Qualifiers: Hypertension type: essential hypertension Qualified Code(s): I10 - Essential (primary) hypertension (6) History of deep venous thrombosis or pulmonary embolus Code(s): [id number] - Status: Chronic (7) Seizure as late effect of cerebrovascular accident (CVA) Code(s): I69.398 - OTHER SEQUELAE OF CEREBRAL INFARCTION; R56.9 - UNSPECIFIED CONVULSIONS Status: Chronic - Plan Plan: Sepsis 2/2 UTI vs Prostatitis -Febrile to 102.1, tachycardic to 113, R 20. WBC wnl. Patient has had repeated UTIs -UA showed bacteria, blood LE, and high WBC. -Abd/Pelvis CT: no obstruction/hydronephrosis, shows prostatic enlargement and bladder wall thickening. -unclear if prostate is boggy or firm on MIGUEL. Patient was not "jumping off bed" on exam. Likely will plan to treat for 6-12 weeks as patient has had recurrent UTIs, likely due to chronic prostatitis. -Post void residual pending -Blood cx NGTD, urine culture showed >100,000 Klebsiella, pansensitive -Continue levoquin -likely discharge to home today Chronic Incontinence - BPH vs neurogenic vs other - Large prostate seen on CT, PSA slightly elevated, possibly BPH playing a part in his incontinence - Follow up outpatient with urology Hypokalemia, resolved -K of 2.9 on admission, will monitor and replace as necessary Hx Hemorrhagic CVA with Left sided hemiparesis -Weakness in RUE and RLE, unable to ambulate on his own. Uses a wheelchair -PT/OT consulted Hydrocephalus -2/2 to above -s/p CLOTH WIRE WEAVER shunt -Head CT/shuntogram: unremarkable Hx of Seizures s/p stroke -continue home keppra HTN -continue home medications Hx of DVT and PE -patient no longer on blood thinner -D-dimer positive, however patient denies SOB, chest pain. Tachycardia has resolved with fluids. Satting well on RA. -No calf pain, tenderness, or swelling -continue to monitor. Lovenox for DVT ppx Code status: full Diet: HH DVT ppx: lovenox PCP: Jorge GI: famotidine Dispo: likely home today Addendum - Attending - Attending Attestation Date/Time: 09/06/18 4587 I personally evaluated the patient and discussed the management with Dr. Hassan. I agree with the History, Examination, Assessment and Plan documented above with any addition or exceptions noted below.
[2018-09-06] MEDS: Amlodipine 10 MG TAB PO SCH (11:00)
[2018-09-06] MEDS: hydrALAZINE 25 MG TAB PO SCH (11:00)
[2018-09-06] MEDS: Carvedilol 6.25 MG TAB PO SCH (11:16)
[2018-09-06 11:23] VITALS: BP 108/77
[2018-09-06 12:43] VITALS: TEMP 99.4
--- NOTE | 2018-09-06 14:59 | DIS ---
DATE OF ADMISSION: 09/04/2018 DATE OF DISCHARGE: 09/06/2018 RESIDENT: Mignon Hassan MD ADMITTING ATTENDING: Kevin Packer MD DISCHARGE ATTENDING: Kevin Packer MD CONSULTS: None. PROCEDURES: 1. Chest x-ray, 09/04/2018: No evidence of acute cardiopulmonary disease. 2. Brain CT, 09/04/2018: No evidence of acute intracranial abnormality. 3. Shuntogram, 09/04/2018: Unremarkable shuntogram. 4. Abdomen and pelvis CT, 09/04/2018: a. Ventriculoperitoneal shunt tube in place. b. Enlarged prostate with thickened bladder wall. c. No renal or ureteral calculi. PRIMARY DIAGNOSIS: Sepsis secondary to acute bacterial prostatitis. SECONDARY DIAGNOSES: 1. Incontinence. 2. Hypokalemia, resolved. 3. History of hemorrhagic cerebrovascular accident with left-sided hemiparesis. 4. Hydrocephalus. 5. History of seizures. 6. Hypertension. 7. History of deep vein thrombosis and pulmonary embolism. DISCHARGE MEDICATIONS: 1. Levaquin 500 mg p.o. daily for 6 weeks. 2. Hydralazine 25 mg p.o. t.i.d. 3. Keppra 500 mg p.o. b.i.d. 4. Amlodipine 10 mg p.o. q.a.m. 5. Carvedilol 3.125 mg p.o. b.i.d. with meals. 6. Tylenol 650 mg p.o. q.4 hours p.r.n. headache, fever, or mild pain. DISCONTINUED MEDICATIONS: None. HISTORY OF PRESENT ILLNESS/HOSPITAL COURSE: A 48-year-old male with past medical history of hemorrhagic stroke 6 months ago, subsequent SEED TRUCKER shunt for hydrocephalus with left-sided hemiparesis, presents with chief complaint of back pain last night that woke him from sleep. The pain was central low back, sharp, constant, nonradiating, and lasted 4 hours until he arrived to the hospital. His back pain is currently resolved. The patient states that he thinks his bed at home was not comfortable and this would also cause the pain. He states that he had headache in the parieto-occipital region on the right side that has now resolved. He reported malaise, fever. He denied chest pain or shortness of breath. He denied nausea or vomiting. Reported constipation. He specifically denied dysuria or hematuria, however, he wears Depends for incontinence and reported postvoid dribbling. He also reports using a wheelchair as he is unable to ambulate after stroke. In the ED, he was febrile to 102.1 Fahrenheit, tachycardic. White blood cell count was normal. Chest x-ray showed no acute abnormalities. UA showed signs of infection. He was given 1 L of fluid, started on vanc and Rocephin. CT of his head and shuntogram were both unremarkable. The vanc and Zosyn were discontinued and he was started on p.o. Levaquin. Abdomen and pelvis CT was done, which showed no obstruction or hydronephrosis, but it showed prostatic enlargement and bladder wall thickening. A digital rectal exam was done. It is unclear if his prostate was boggy or firm. The patient was not jumping off the bed during the exam. Blood and urine cultures were drawn. Cultures were positive for greater than 100,000 of Klebsiella pneumoniae. The patient also did spike a fever during his stay after starting antibiotics up to 102.5. He was afebrile for 24 hours prior to discharge. He likely has prostatitis, so he will be continued on six weeks of p.o. Levaquin to treat prostatitis. Chronic incontinence. Recommend follow up outpatient with Urology after completing a course of treatment for prostatitis if incontinence remains. Hypokalemia. His potassium was initially 2.9 on admission. He was given replacement. His potassium was 3.5 on discharge. Back pain, resolved during his stay at the hospital. He stated that it went away and it did not return during his stay. DISPOSITION: Stable. DISCHARGE INSTRUCTIONS: 1. Location: Home. 2. Diet: Heart healthy. 3. Activity: As tolerated. 4. Follow up with Dr. Patel within 1 week. Please consider referral to Urology at that appointment for his incontinence. Job ID: [id number] MTDD
--- NOTE | 2018-09-07 12:08 | EKG ---
Test Reason : Blood Pressure : / mmHG Vent. Rate : 103 BPM Atrial Rate : 103 BPM P-R Int : 172 ms QRS Dur : 090 ms QT Int : 342 ms P-R-T Axes : 032 010 080 degrees QTc Int : 448 ms Sinus tachycardia T wave abnormality, consider anterolateral ischemia Abnormal ECG Confirmed by MILLICENT MARCUM DO ([id number]), make up editor LETA ALEXANDRE ([id number]) on 09/07/2018 12:08:17 PM Referred By: Confirmed By:MILLICENT MARCUM DO
== END 2018-09-06 16:05 | disposition home or self-care (01) | DRG 872 ==
LOC: ERS 05:26 → T4-A 06:35
PROVIDERS: ADMIT Student in an Organized Health Care Education/Training Program; ATTEND Student in an Organized Health Care Education/Training Program
PROC: B02 Imaging, Central Nervous System, Computerized Tomography (CT Scan) (ICD-10-PCS; principal; 2018-09-04)
DX: A41.9 Sepsis, unspecified organism (principal); G91.9 Hydrocephalus, unspecified; I69.354 Hemiplegia and hemiparesis following cerebral infarction affecting left non-dominant side; N41.0 Acute prostatitis; B96.0 Mycoplasma pneumoniae [M. pneumoniae] as the cause of diseases classified elsewhere; I10 Essential (primary) hypertension; E87.6 Hypokalemia; R32 Unspecified urinary incontinence; I69.398 Other sequelae of cerebral infarction; Z88.6 Allergy status to analgesic agent; Z79.899 Other long term (current) drug therapy; Z99.3 Dependence on wheelchair; Z86.718 Personal history of other venous thrombosis and embolism; Z86.711 Personal history of pulmonary embolism; Z98.2 Presence of cerebrospinal fluid drainage device
CPT/HCPCS: 36415; 70450; 71045; 74176; 75809; 80048; 80053; 81003; 81015; 83605; 84145; 84153; 84154; 84484; 85025; 85379; 87040; 87077; 87086; 87186; 93005; J1650; J2543; J3370

== ENCOUNTER 2018-09-22 16:03 | Emergency (ER) | payer BC ==
--- NOTE | 2018-09-22 16:55 | RAD ---
6 view shuntogram Frontal view skull, frontal view neck, frontal view chest, frontal view abdomen, frontal view pelvis, and lateral view skull provided. Reference made to 09/04/18 FINDINGS: The imaged shunt catheter is intact. No new focal, discrete discontinuity is seen, within t he provided views. IMPRESSION: No interval shunt discontinuity is visualized. Transcribed Date/Time: 09/22/2018 4:57 PM
--- NOTE | 2018-09-22 17:10 | CT ---
CT Brain WO Con: 09/22/2018 4:26 PM CLINICAL HISTORY: Headache. COMPARISON: 09/04/2018 FINDINGS: Hemorrhage: None. Ventricular system: Stable in size with mild prominence. Right parietal approach ventriculostomy nick ins in place with tip at the body the right lateral ventricle. Cerebral parenchyma: Scattered areas of white matter hypoattenuation and encephalomalacia, bilaterall y, stable appearing. Midline shift: None. Mass: No mass effect. Calvarium: Normal. Visualized Paranasal sinuses: Clear. IMPRESSION: Stable noncontrast head CT.
[2018-09-22 17:57] LABS: #Eosinphils 0.2 thou/uL (0.0-0.7); #Lymphocytes 1.8 thou/uL (1.20-3.40); #Monocytes 0.6 thou/uL (0.11-0.59); #Neutrophils 1.8 thou/uL (1.40-6.50); %Basophils 0.1 % (0.0-1.0); %Eosinophils 3.7 % (0.0-10.0); %Lymphocytes 41.9 % (21.0-51.0); %Monocytes 12.9 % (0.0-10.0); %Neutrophils 41.4 % (42.0-75.0); Mean Corpuscular HGB CONC 31.4 g/dL (32.0-36.0); Mean Corpuscular Hemoglobin 29.2 pg (27.0-31.0); Mean Corpuscular Volume 92.9 fL (78.0-98.0); Mean Platelet Volume 10.1 fL (7.4-10.4); Platelet Count 236 thou/uL (130-400); RBC Distribution Width 14.8 % (11.5-14.5); Red Blood Cell (RBC) Count 4.79 mill/uL (4.70-6.10); White Blood Cell (WBC) Count 4.3 thou/uL (4.8-10.8)
[2018-09-22 18:12] LABS: Bilirubin Negative (Negative); Blood, Urine Negative (Negative); Clarity Clear (Clear); Glucose, Urine (Dipstick) Normal (Negative); Leukocyte Negative Leu/uL (Negative); Nitrite Negative (Negative); Protein, Urine (Dipstick) 10 mg/dL (Neg-Trace)
[2018-09-22 18:27] LABS: ALT (SGPT) 12 U/L (8-55); AST (SGOT) 11 U/L (5-34); Albumin 3.7 g/dL (3.5-5.0); Alkaline Phosphatase 124 U/L (40-150); Anion Gap 13 mmol/L (10-20); BUN (Urea Nitrogen) 11 mg/dL (8.9-20.6); Bilirubin, Total 0.6 mg/dL (0.2-1.2); Calc. Creatinine Clearance 0 mL/min (70-130); Calcium 9.3 mg/dL (7.8-10.44); Carbon Dioxide 23 mmol/L (22-29); Chloride 106 mmol/L (98-107); Estimated GFR-MDRD Greater than 90; Globulin 3.3 g/dL (2.4-3.5); Glucose 70 mg/dL (70-105); Potassium 3.5 mmol/L (3.5-5.1); Sodium 138 mmol/L (136-145)
[2018-09-22] MEDS ORDERED: Acetaminophen 500 MG TAB ONE ×2 (19:19→19:35)
== END 2018-09-22 22:30 | disposition home or self-care (01) ==
LOC: ERS 16:03
DX: R51 Headache (principal); I10 Essential (primary) hypertension; Z86.73 Personal history of transient ischemic attack (TIA), and cerebral infarction without residual deficits; Z87.891 Personal history of nicotine dependence; Z79.899 Other long term (current) drug therapy
CPT/HCPCS: 70450; 75809; 80053; 81003; 85025

== ENCOUNTER 2021-01-31 15:33 | Inpatient (IN) | payer MEDICARE, MEDICAID ==
[2021-01-31 16:06] LABS: #Eosinphils 0.2 thou/uL (0.0-0.7); #Lymphocytes 1.3 thou/uL (1.20-3.40); #Monocytes 0.4 thou/uL (0.11-0.59); #Neutrophils 2.6 thou/uL (1.40-6.50); %Basophils 0.5 % (0.0-1.0); %Eosinophils 4.2 % (0.0-10.0); %Lymphocytes 29.9 % (21.0-51.0); %Monocytes 7.9 % (0.0-10.0); %Neutrophils 57.5 % (42.0-75.0); Hemoglobin 14.7 g/dL (14.0-18.0); Mean Corpuscular HGB CONC 33.1 g/dL (32.0-36.0); Mean Corpuscular Hemoglobin 32.9 pg (27.0-31.0); Mean Corpuscular Volume 99.4 fL (78.0-98.0); Mean Platelet Volume 8.6 fL (7.4-10.4); Platelet Count 192 thou/uL (130-400); Red Blood Cell (RBC) Count 4.46 mill/uL (4.70-6.10); White Blood Cell (WBC) Count 4.5 thou/uL (4.8-10.8)
[2021-01-31 16:29] LABS: Albumin 3.6 g/dL (3.5-5.0); Anion Gap 14 mmol/L (10-20); BUN (Urea Nitrogen) 12 mg/dL (8.4-25.7); Bilirubin, Total 0.6 mg/dL (0.2-1.2); Calc. Creatinine Clearance 0 mL/min (70-130); Calcium 9.2 mg/dL (7.8-10.44); Carbon Dioxide 22 mmol/L (22-29); Chloride 108 mmol/L (98-107); Glucose 127 mg/dL (70-105); Potassium 4.3 mmol/L (3.5-5.1); Protein, Total 7.5 g/dL (6.0-8.3); Sodium 140 mmol/L (136-145)
[2021-01-31 16:30] LABS: ALT (SGPT) 25 U/L (8-55); AST (SGOT) 41 U/L (5-34); Alkaline Phosphatase 116 U/L (40-110); Globulin 3.9 g/dL (2.4-3.5); Lipase 21 U/L (8-78)
[2021-01-31 16:37] LABS: Bacteria/HPF 4+ HPF (None Seen); Bilirubin Negative (Negative); Blood, Urine Negative (Negative); Clarity Turbid (Clear); Glucose, Urine (Dipstick) Normal (Negative); Ketone, Urine Trace mg/dL (Negative); Leukocyte 500 Leu/uL (Negative); Nitrite 2+ (Negative); Protein, Urine (Dipstick) 20 mg/dL (Neg-Trace); RBC/HPF 0-3 HPF (0-3); Squamous Epithelial 0-3 HPF (0-3); Urobilinogen 6 mg/dL (Less than 2); WBC/HPF Greater than 50 HPF (0-3)
[2021-01-31] MEDS ORDERED: cefTRIAXone\\ROCEPHIN 2 GM VIAL ONE (17:28)
[2021-01-31] MEDS ORDERED: Sodium Chloride 0.9% 100 ML ONE (17:28)
[2021-01-31] MEDS ORDERED: Pantoprazole 40 MG VIAL IVP SCH (17:45)
[2021-01-31 22:10] VITALS: BMI 33.4
[2021-01-31] MEDS ORDERED: Ondansetron PF 4 MG/2 ML Vial IVP PRN (22:10)
[2021-01-31] MEDS ORDERED: Acetaminophen 650 MG Suppository PR PRN (22:10)
[2021-01-31] MEDS ORDERED: Ondansetron ODT 4 MG TAB PO PRN (22:10)
[2021-01-31] MEDS ORDERED: Acetaminophen 325 MG TAB PO PRN (22:10)
[2021-01-31] MEDS ORDERED: Piperacillin/Tazobactam 3.375 GM in Sodium Chloride 0.9% 100 ML IVPB SCH ×2 (22:30→23:00)
[2021-02-01] MEDS: Piperacillin/Tazobactam 3.375 GM in Sodium Chloride 0.9% 100 ML IVPB SCH ×3 (03:52→20:23)
[2021-02-01 06:21] LABS: #Eosinphils 0.2 thou/uL (0.0-0.7); #Lymphocytes 1.4 thou/uL (1.20-3.40); #Monocytes 0.4 thou/uL (0.11-0.59); %Basophils 0.3 % (0.0-1.0); %Eosinophils 3.2 % (0.0-10.0); %Lymphocytes 27.9 % (21.0-51.0); %Monocytes 8.5 % (0.0-10.0); %Neutrophils 60.2 % (42.0-75.0); Hemoglobin 14.9 g/dL (14.0-18.0); Mean Corpuscular HGB CONC 32.9 g/dL (32.0-36.0); Mean Corpuscular Hemoglobin 32.8 pg (27.0-31.0); Mean Corpuscular Volume 99.6 fL (78.0-98.0); Mean Platelet Volume 8.9 fL (7.4-10.4); Platelet Count 179 thou/uL (130-400); RBC Distribution Width 15.1 % (11.5-14.5); Red Blood Cell (RBC) Count 4.53 mill/uL (4.70-6.10); White Blood Cell (WBC) Count 4.9 thou/uL (4.8-10.8)
[2021-02-01 06:43] LABS: Anion Gap 12 mmol/L (10-20); BUN (Urea Nitrogen) 8 mg/dL (8.4-25.7); Calc. Creatinine Clearance 143 mL/min (70-130); Calcium 9.4 mg/dL (7.8-10.44); Carbon Dioxide 23 mmol/L (22-29); Chloride 109 mmol/L (98-107); Glucose 73 mg/dL (70-105); Sodium 140 mmol/L (136-145)
[2021-02-01] MEDS: Amlodipine 10 MG TAB PO SCH (08:18)
[2021-02-01] MEDS: Carvedilol 3.125 MG TAB PO SCH ×2 (08:18→20:23)
[2021-02-01] MEDS: levETIRAcetam 500 MG TAB PO SCH ×2 (08:18→20:22)
[2021-02-01] MEDS ORDERED: Enoxaparin Sodium 40 MG/0.4 ML SYRINGE SC SCH (09:00)
[2021-02-01] MEDS ORDERED: Carvedilol 6.25 MG TAB PO SCH (09:00)
[2021-02-01 13:29] LABS: SARS-CoV-2 PCR by NAA Not Detected (NotDetected)
[2021-02-02 04:36] LABS: #Eosinphils 0.2 thou/uL (0.0-0.7); #Lymphocytes 1.2 thou/uL (1.20-3.40); #Monocytes 0.3 thou/uL (0.11-0.59); #Neutrophils 1.3 thou/uL (1.40-6.50); %Basophils 0.4 % (0.0-1.0); %Eosinophils 8.1 % (0.0-10.0); %Lymphocytes 39.6 % (21.0-51.0); %Monocytes 9.1 % (0.0-10.0); %Neutrophils 42.7 % (42.0-75.0); Hemoglobin 13.7 g/dL (14.0-18.0); Mean Corpuscular HGB CONC 32.8 g/dL (32.0-36.0); Mean Corpuscular Hemoglobin 32.6 pg (27.0-31.0); Mean Corpuscular Volume 99.3 fL (78.0-98.0); Platelet Count 184 thou/uL (130-400); RBC Distribution Width 14.9 % (11.5-14.5); Red Blood Cell (RBC) Count 4.19 mill/uL (4.70-6.10)
[2021-02-02] MEDS: Piperacillin/Tazobactam 3.375 GM in Sodium Chloride 0.9% 100 ML IVPB SCH ×2 (04:44→12:32)
[2021-02-02 04:53] LABS: Anion Gap 10 mmol/L (10-20); BUN (Urea Nitrogen) 10 mg/dL (8.4-25.7); Calc. Creatinine Clearance 130 mL/min (70-130); Calcium 8.8 mg/dL (7.8-10.44); Carbon Dioxide 25 mmol/L (22-29); Chloride 108 mmol/L (98-107); Glucose 73 mg/dL (70-105); Potassium 3.8 mmol/L (3.5-5.1); Sodium 139 mmol/L (136-145)
[2021-02-02] MEDS: Amlodipine 10 MG TAB PO SCH (09:27)
[2021-02-02] MEDS: Carvedilol 3.125 MG TAB PO SCH (09:27)
[2021-02-02] MEDS: levETIRAcetam 500 MG TAB PO SCH (09:27)
[2021-02-02 15:46] VITALS: BP 110/72; TEMP 98.2
== END 2021-02-02 18:15 | disposition home or self-care (01) | DRG 690 ==
LOC: ERS 15:33 → SURG A 17:24
PROVIDERS: ADMIT Internal Medicine; ATTEND Family Medicine
DX: N39.0 Urinary tract infection, site not specified (principal); I69.954 Hemiplegia and hemiparesis following unspecified cerebrovascular disease affecting left non-dominant side; Z20.822 Contact with and (suspected) exposure to COVID-19; I10 Essential (primary) hypertension; K76.0 Fatty (change of) liver, not elsewhere classified; N41.1 Chronic prostatitis; D72.819 Decreased white blood cell count, unspecified; N40.0 Benign prostatic hyperplasia without lower urinary tract symptoms; I25.2 Old myocardial infarction; Z88.6 Allergy status to analgesic agent; Z79.899 Other long term (current) drug therapy; Z87.898 Personal history of other specified conditions; Z99.3 Dependence on wheelchair
CPT/HCPCS: 36415; 51701; 76705; 80048; 80053; 81003; 81015; 83690; 84484; 85025; 87040; 87077; 87086; 87186; 93005; 96365; 96375; C9113; J0696; J2543; J3490; U0003; U0005